=== PATIENT | male | born 1950 | race Caucasian/White ===

== ENCOUNTER 2016-11-15 07:24 | Emergency (ER) | payer OTHER ==
[~2016-11-15 07:24] MED LIST: ACET50TAOT PO; ATOR1TAB21 PO; COLA100C PO; ISOS30TA4 PO; NICO2GUM62 PO; NITR4TASL SL; PERCOCET PO; Pantoprazole Sodium PO; Sucralfate PO; VITA-122 PO; VITMTA PO
[2016-11-15] MEDS ORDERED: GI COCKTAIL 50ML BTL(HYOSCYAMINE/MAALOX/LIDOCAINE VISCOUS)(1:3:1) As Ordered ONE (07:49)
[2016-11-15] MEDS ORDERED: ONDANSETRON 4MG/2ML VIAL (J2405) As Ordered ONE (07:49)
[2016-11-15] MEDS ORDERED: MORPHINE 4 MG/ML 1ML SYRINGE As Ordered ONE ×2 (07:50→09:11)
[2016-11-15 07:58] LABS: BASO # 0.2 K/mm3 (0.0-0.2); EOS # 0.2 K/mm3 (0.0-0.50); EOS % 1.7 % (0.0-3.0); LARGE UNSTAINED CELL # 0.2 K/mm3 (0.0-0.4); LARGE UNSTAINED CELL % 1.5 % (0.0-4.0); LYMPH # 2.5 K/mm3 (1.5-4.5); LYMPH % 18.2 % (24.0-44.0); MEAN CORPUSCULAR HEMOGLOBIN 32.4 pg (27.0-33.0); MEAN CORPUSCULAR HGB CONC 34.3 g/dl (32.0-36.5); MEAN CORPUSCULAR VOLUME 94.3 fl (80.0-96.0); MONO # 0.6 K/mm3 (0.0-0.8); MONO % 4.4 % (0.0-5.0); NEUTROPHILS # 9.3 K/mm3 (1.8-7.7); NEUTROPHILS % 72.2 % (36.0-66.0); PLATELET COUNT, AUTOMATED 192 k/mm3 (150-450); RED CELL DISTRIBUTION WIDTH 14.2 % (11.5-14.5); WHITE BLOOD COUNT 12.8 K/mm3 (4.0-10.0)
[2016-11-15 08:26] LABS: ALBUMIN 3.6 GM/DL (3.2-5.2); ALBUMIN/GLOBULIN RATIO 0.97 (1.00-1.93); ALKALINE PHOSPHATASE 82 U/L (45-117); ALT/SGPT 30 U/L (12-78); AMYLASE 23 U/L (25-115); ANION GAP 10 MEQ/L (8-16); AST/SGOT 19 U/L (15-37); BILIRUBIN,DIRECT 0.2 MG/DL (0.0-0.2); BILIRUBIN,TOTAL 0.6 MG/DL (0.2-1.0); BLOOD UREA NITROGEN 25 MG/DL (7-18); CALCIUM LEVEL 8.9 MG/DL (8.8-10.2); CARBON DIOXIDE LEVEL 26 MEQ/L (21-32); CHLORIDE LEVEL 106 MEQ/L (98-107); CREATININE FOR GFR 1.12 MG/DL (0.70-1.30); GLOMERULAR FILTRATION RATE > 60.0 (>49); GLUCOSE, FASTING 93 MG/DL (80-110); POTASSIUM SERUM 4.1 MEQ/L (3.5-5.1); SODIUM LEVEL 142 MEQ/L (136-145); TOTAL PROTEIN 7.3 GM/DL (6.4-8.2)
[2016-11-15] MEDS ORDERED: PANTOPRAZOLE 40MG INJ (PROTONIX) (C9113) As Ordered ONE (09:20)
[2016-11-15] MEDS ORDERED: SUCRALFATE 1 GM TAB As Ordered ONE (09:20)
--- NOTE | 2016-11-15 13:09 | EDDOCDS ---
Physician Documentation [facility] Name: Adilson Dill Age: 65 yrs Sex: Male : 1950 Arrival Date: 11/15/2016 Time: 07:24 Bed 12 Private MD: [facility] Disposition: 11/15/16 12:00 Discharged to Home/Self Care. Impression: Gastritis, unspecified, without bleeding. - Condition is Stable. - Discharge Instructions: Clear Liquid Diet, Gastritis, Adult, Gastritis, Adult, [id number]. - Prescriptions for Carafate 100 mg/mL Oral suspension - take 10 milliliter by ORAL route 4 times per day on an empty stomach 1 hour before meals and at bedtime; 250 milliliter. Pepcid 20 mg Oral Tablet - take 1 tablet by ORAL route every 12 hours for 10 days; 20 tablet. - Medication Reconciliation, Local Pharmacy Hours form. - Follow up: [facility]; When: 1 - 2 days. Follow up: Mark Agustin; When: Call to arrange an appointment. - Problem is an acute exacerbation. - Symptoms are resolved. Historical: - Allergies: Aspirin; PENICILLINS; - Home Meds: 1. isosorbide mononitrate 30 mg Oral Tb24 1 tab once daily 2. cyclobenzaprine 10 mg Oral tab hs 3. multivitamin Oral tab 1 tablet daily 4. oxycodone-acetaminophen 5-325 mg Oral tab 1 tab every 4-6 hours 5. atorvastatin 40 mg oral tab 1 tab once daily 6. Vitamin D Oral 1,000 unit daily 7. meloxicam 15 mg oral tab 1 tab once daily 8. Nitrostat 0.4 mg SL subl - PMHx: Hypercholesterolemia; Hypertension; MIx2; Vertigo; - PSHx: Repair left thumb injury; Angioplasty; gastric surgery for ulcers; - Social history: Smoking status: Patient uses tobacco products, heavy tobacco smoker. No barriers to communication noted, The patient speaks fluent Telugu. - Family history: Not pertinent. - : The pt / caregiver states he / she is not on anticoagulants. Home medication list is obtained from the patient. - Exposure Risk Screening:: None identified. Vital Signs: 11/15 07:32 BP 179 / 89; Pulse 63; Resp 20; Temp 97.4(O); Pulse Ox 97% on R/A; Weight 117.93 kg / jml1 259.99 lbs; Height 5 ft. 11 in. (180.34 cm); Pain 4/10; 07:54 BP 132 / 61 (auto/); ck1 07:54 Pulse 56 MON; Pulse Ox 96% ; ck1 08:09 BP 149 / 73 (auto/); ck1 08:09 Pulse 60 MON; Pulse Ox 95% ; ck1 08:15 BP 139 / 69 (auto/); ck1 08:16 Pulse 62 MON; Pulse Ox 94% ; ck1 08:17 BP 139 / 69; Pulse 60; Resp 18; Temp 96.9(O); Pulse Ox 95% on R/A; Pain 0/10; ck1 08:24 BP 124 / 63 (auto/); ck1 08:25 Pulse 60 MON; Pulse Ox 94% ; ck1 08:39 BP 119 / 59 (auto/); ck1 08:41 Pulse 64 MON; Pulse Ox 95% ; ck1 08:54 BP 156 / 70 (auto/); ck1 08:54 Pulse 60 MON; Pulse Ox 94% ; ck1 09:09 BP 130 / 60 (auto/); ck1 09:09 Pulse 58 MON; Pulse Ox 95% ; ck1 09:24 BP 147 / 103 (auto/); ck1 09:24 Pulse 58 MON; Pulse Ox 95% ; ck1 09:39 BP 124 / 60 (auto/); ck1 09:39 Pulse 54 MON; Pulse Ox 96% ; ck1 09:42 Pain 0/10; ck1 09:43 Resp 18; Temp 97.9(O); Pain 0/10; ck1 09:54 BP 110 / 53 (auto/); ck1 09:55 Pulse 50 MON; Pulse Ox 93% ; ck1 10:09 BP 111 / 55 (auto/); ck1 10:10 Pulse 56 MON; Pulse Ox 93% ; ck1 10:24 BP 111 / 55 (auto/); ck1 10:25 Pulse 50 MON; Pulse Ox 94% ; ck1 10:39 BP 115 / 56 (auto/); ck1 10:40 Pulse 54 MON; Pulse Ox 96% ; ck1 10:54 BP 108 / 56 (auto/); ck1 10:55 Pulse 52 MON; Pulse Ox 95% ; ck1 11:09 BP 108 / 55 (auto/); ck1 11:09 Pulse 52 MON; Pulse Ox 95% ; ck1 11:24 BP 119 / 56 (auto/); ck1 11:25 Pulse 52 MON; Pulse Ox 96% ; ck1 11:39 BP 115 / 56 (auto/); ck1 11:40 Pulse 54 MON; Pulse Ox 94% ; ck1 11:40 Resp 18; Temp 96.9(T); Pain 0/10; ck1 11:54 BP 102 / 51 (auto/); ck1 11:54 Pulse 54 MON; Pulse Ox 96% ; ck1 07:32 Body Mass Index 36.26 (117.93 kg, 180.34 cm) [facility] MDM: 07:34 [employer]/Pulse Ox/q 30 min VS ordered. sd1 07:34 IV Saline Lock ordered. sd1 07:34 Rhythm Strip to chart ordered. sd1 07:34 Undress patient appropriately for examination ordered. sd1 07:34 NS 0.9% 1000 ml IV at 250 mL/hr continuous ordered. sd1 07:34 morphine 4 mg IVP every 15 minutes; Document pain score/vitals after each dose (Hold if sd1 SBP < 90mmHg) x2 ordered. 07:34 Ondansetron 4 mg IVP once ordered. sd1 07:34 GI Cocktail - (Alum-Mag Hydroxide-Simeth 30 ml, Lidocaine 10 ml, Hyoscyamine 10 ml) PO sd1 once; Pre-mixed 50mL unit dose ordered. 07:35 Amylase Ordered. EDMS 07:35 Basic Metabolic Profile Ordered. EDMS 07:35 CBC with Diff Ordered. EDMS 07:35 Lipase Ordered. EDMS 07:35 Liver Profile Ordered. EDMS 07:35 Cardiac Injury Profile Ordered. EDMS 07:35 Troponin Ordered. EDMS 07:35 ECG WITH READING ER PHYS+CARDIAG ordered. EDMS 07:35 NOTHING BY MOUTH+DIET ordered. EDMS 08:30 Amylase Reviewed. sd1 08:30 Basic Metabolic Profile Reviewed. sd1 08:30 CBC with Diff Reviewed. sd1 08:30 Liver Profile Reviewed. sd1 08:30 Lipase Reviewed. sd1 08:30 Cardiac Injury Profile Reviewed. sd1 08:30 Troponin Reviewed. sd1 08:44 Financial registration complete. lg 09:15 pantoprazole 40 mg IV at bolus once ordered. sd1 09:15 Sucralfate 1 grams PO once ordered. sd1 09:29 [facility] Payment Agreement was scanned into [employer] and attached to record. lg Administered Medications: 08:00 Drug: NS 0.9% 1000 ml [sodium chloride 0.9 % intravenous solution] Route: IV; Rate: 250 ck1 mL/hr; Site: left forearm; 08:00 Drug: morphine 4 mg [morphine 4 mg/mL intravenous cartridge (1 mL)] Route: IVP; Site: ck1 left forearm; 08:17 Follow up: BP 139 / 69; Pulse 60 bpm; Resp 18 bpm; Temp 96.9 Oral; Pulse Ox 95% RA; ck1 Pain 0/10 Adult; Response: Confirmed pt not driving.; No Adverse Reaction; Pain is resolved 08:00 Drug: Ondansetron 4 mg [ondansetron HCl 2 mg/mL intravenous solution (2 mL)] Route: ck1 IVP; Site: left forearm; 08:00 Drug: GI Cocktail - (Alum-Mag Hydroxide-Simeth Suspension 225 mg-200 mg-25 mg/5 mL 30 ck1 ml, Lidocaine Liquid 2 % 10 ml, Hyoscyamine Liquid 10 ml) Route: PO; 08:50 Follow up: Response: No Adverse Reaction; Pain is resolved ck1 09:14 Drug: morphine 4 mg [morphine 4 mg/mL intravenous cartridge (1 mL)] Route: IVP; Site: ck1 left forearm; 09:42 Follow up: Pain 0/10 Adult; Response: Confirmed pt not driving.; No Adverse Reaction; ck1 Pain is resolved 09:26 Drug: pantoprazole 40 mg [pantoprazole 40 mg intravenous solution] Route: IV; Rate: ck1 bolus; Site: left antecubital; 09:26 Drug: Sucralfate 1 grams [sucralfate 1 gram tablet (1 tabs)] Route: PO; ck1 Signatures: Dispatcher [employer] Kenya Youssef MD MD sd1 Erin Velazquez RN RN mcp Ganter, LoriLee, Ismael Reg lg Moon Pedroza RN RN ck1 The chart was reviewed and I authenticate all verbal orders and agree with the evaluation and treatment provided.Attachments: 09:29 [facility] Payment Agreement lg MTDD
--- NOTE | 2016-11-15 13:09 | EDDOCDS ---
Nurse's Notes [facility] Name: Adilson Dill Age: 65 yrs Sex: Male : 1950 Arrival Date: 11/15/2016 Time: 07:24 Bed 12 Private MD: SD Colton Sumter Diagnosis: Gastritis, unspecified, without bleeding Presentation: 11/15 07:28 Presenting complaint: Patient states: Has been taking Nitro for last 3 days, decreased mcp appetite, nauseous. Has had abdominal and chest pain on and off. FSBS--112, SL established left forearm #20. Adult Sepsis Screening: The patient does not have new or worsening altered mentation. Patient's respiratory rate is less than 22. Systolic blood pressure is greater than 100. Patient has a qSOFA score of 0- Negative Sepsis Screen. Suicide/Homicide risk assessment- the patient denies having any suicidal and/or homicidal ideations and does not present with any other emotional, behavioral or mental health complaints. 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 Transition of care: patient was not received from another setting of care. 07:28 Acuity: ROXANE Level 3 [facility] 07:28 Method Of Arrival: Ambulance [facility] Triage Assessment: 07:36 General: Appears uncomfortable, Behavior is cooperative. Pain: Location: chest and mcp abdomen Pain currently is 5 out of 10 on a pain scale. HIV screening NA for this visit Offered previously. Respiratory: Airway is patent Respiratory effort is even, unlabored. GI: Abdomen is distended. Derm: Skin is pink, warm & dry. Historical: - Allergies: Aspirin; PENICILLINS; - Home Meds: 1. isosorbide mononitrate 30 mg Oral Tb24 1 tab once daily 2. cyclobenzaprine 10 mg Oral tab hs 3. multivitamin Oral tab 1 tablet daily 4. oxycodone-acetaminophen 5-325 mg Oral tab 1 tab every 4-6 hours 5. atorvastatin 40 mg oral tab 1 tab once daily 6. Vitamin D Oral 1,000 unit daily 7. meloxicam 15 mg oral tab 1 tab once daily 8. Nitrostat 0.4 mg SL subl - PMHx: Hypercholesterolemia; Hypertension; MIx2; Vertigo; - PSHx: Repair left thumb injury; Angioplasty; gastric surgery for ulcers; - Social history: Smoking status: Patient uses tobacco products, heavy tobacco smoker. No barriers to communication noted, The patient speaks fluent Prydeinig. - Family history: Not pertinent. - : The pt / caregiver states he / she is not on anticoagulants. Home medication list is obtained from the patient. - Exposure Risk Screening:: None identified. Screenin:47 Screening information is obtained from the patient. Fall risk: No risks identified. ck1 Assistance ADL's: requires no assistance with activities of daily living. Abuse/DV Screen: The patient / caregiver reports he/she is: not in a situation that causes fear, pain or injury. Nutritional screening: No deficits noted. Advance Directives: Currently, there is no health care proxy. home support is adequate. Assessment: 07:48 General: Appears uncomfortable, Behavior is appropriate for age, cooperative. Pain: ck1 Location: epigastric area and right upper quadrant Pain currently is 6 out of 10 on a pain scale. Neurological: Level of Consciousness is awake, alert, obeys commands, Oriented to person, place, time. Respiratory: Respiratory effort is unlabored, Respiratory pattern is regular, symmetrical. GI: Abdomen is distended, Bowel sounds present X 4 quads. Abd is tender to palpation in right upper quadrant. Derm: Skin is intact, Skin is pink, warm & dry. Musculoskeletal: Circulation, motion, and sensation intact Range of motion intact in all extremities. 08:18 General: Appears in no apparent distress, comfortable, Behavior is appropriate for age, ck1 cooperative. Pain: Denies pain. Neurological: Level of Consciousness is awake, alert, obeys commands, Oriented to person, place, time. Cardiovascular: Rhythm is regular Chest pain is denied. Respiratory: Respiratory effort is unlabored, Respiratory pattern is regular, symmetrical. GI: Abdomen is distended, Denies nausea, vomiting, pain. Derm: Skin is intact, Skin is pink, warm & dry. Musculoskeletal: No deficits noted. 09:17 General: Patient complaining of "sharp" pain in abdomen 08/21. Medicated per orders, ck1 family members at bedside. Call light in reach, will continue to monitor patient. 10:15 Reassessment: Patient appears in no apparent distress at this time. Patient denies pain ck1 at this time. Patient states feeling better. 11:15 Reassessment: Patient appears in no apparent distress at this time. Patient states ck1 feeling better. Patient states symptoms have improved. 12:15 General: Patient waiting for family members to bring his clothes in order to be ck1 discharged home. No acute distress noted at this time. 12:58 General: Appears comfortable, to be sleeping. Behavior is appropriate for age, ck1 cooperative, quiet. Pain: Denies pain. Neurological: No deficits noted. Respiratory: Respiratory effort is even, unlabored, Respiratory pattern is regular, symmetrical. GI: No deficits noted. Derm: Skin is pink, warm & dry. Vital Signs: 07:32 BP 179 / 89; Pulse 63; Resp 20; Temp 97.4(O); Pulse Ox 97% on R/A; Weight 117.93 kg; jml1 Height 5 ft. 11 in. (180.34 cm); Pain 4/10; 07:54 BP 132 / 61 (auto/); ck1 07:54 Pulse 56 MON; Pulse Ox 96% ; ck1 08:09 BP 149 / 73 (auto/); ck1 08:09 Pulse 60 MON; Pulse Ox 95% ; ck1 08:15 BP 139 / 69 (auto/); ck1 08:16 Pulse 62 MON; Pulse Ox 94% ; ck1 08:17 BP 139 / 69; Pulse 60; Resp 18; Temp 96.9(O); Pulse Ox 95% on R/A; Pain 0/10; ck1 08:24 BP 124 / 63 (auto/); ck1 08:25 Pulse 60 MON; Pulse Ox 94% ; ck1 08:39 BP 119 / 59 (auto/); ck1 08:41 Pulse 64 MON; Pulse Ox 95% ; ck1 08:54 BP 156 / 70 (auto/); ck1 08:54 Pulse 60 MON; Pulse Ox 94% ; ck1 09:09 BP 130 / 60 (auto/); ck1 09:09 Pulse 58 MON; Pulse Ox 95% ; ck1 09:24 BP 147 / 103 (auto/); ck1 09:24 Pulse 58 MON; Pulse Ox 95% ; ck1 09:39 BP 124 / 60 (auto/); ck1 09:39 Pulse 54 MON; Pulse Ox 96% ; ck1 09:42 Pain 0/10; ck1 09:43 Resp 18; Temp 97.9(O); Pain 0/10; ck1 09:54 BP 110 / 53 (auto/); ck1 09:55 Pulse 50 MON; Pulse Ox 93% ; ck1 10:09 BP 111 / 55 (auto/); ck1 10:10 Pulse 56 MON; Pulse Ox 93% ; ck1 10:24 BP 111 / 55 (auto/); ck1 10:25 Pulse 50 MON; Pulse Ox 94% ; ck1 10:39 BP 115 / 56 (auto/); ck1 10:40 Pulse 54 MON; Pulse Ox 96% ; ck1 10:54 BP 108 / 56 (auto/); ck1 10:55 Pulse 52 MON; Pulse Ox 95% ; ck1 11:09 BP 108 / 55 (auto/); ck1 11:09 Pulse 52 MON; Pulse Ox 95% ; ck1 11:24 BP 119 / 56 (auto/); ck1 11:25 Pulse 52 MON; Pulse Ox 96% ; ck1 11:39 BP 115 / 56 (auto/); ck1 11:40 Pulse 54 MON; Pulse Ox 94% ; ck1 11:40 Resp 18; Temp 96.9(T); Pain 0/10; ck1 11:54 BP 102 / 51 (auto/); ck1 11:54 Pulse 54 MON; Pulse Ox 96% ; ck1 07:32 Body Mass Index 36.26 (117.93 kg, 180.34 cm) jml1 Vitals: 07:49 Log In Time N/A - ambulance arrival. ck1 ED Course: 07:25 Patient visited by Ro Abdullahi, Heel Curver. lbd 07:25 Patient moved to Waiting lbd 07:26 [facility] is Private Physician. lbd 07:26 Kenya Hernández MD is Attending Physician. sd1 07:26 Patient moved to 12 lbd 07:27 Patient visited by Kenya Hernández MD. sd1 07:30 Triage Initiated mcp 07:33 Patient visited by Antonio Bean. jml1 07:37 Maintain field IV. Dressing intact. Good blood return noted. Site clean & dry. Gauge & mcp site: #20 left forearm. 07:38 Patient visited by Erin Velazquez RN. mcp 07:43 Patient visited by Antonio Bean. jml1 07:43 EKG done. (by ED staff). Reviewed by Kenya Hernández MD. jml1 07:47 Cardiac Injury Profile Sent. ck1 07:47 Troponin Sent. ck1 07:47 Liver Profile Sent. ck1 07:47 Lipase Sent. ck1 07:47 CBC with Diff Sent. ck1 07:47 Basic Metabolic Profile Sent. ck1 07:47 Amylase Sent. ck1 07:48 The patient / caregiver is instructed regarding the plan of care and ED course. ck1 08:17 Patient visited by Moon Pedroza RN. ck1 08:51 Patient visited by Moon Pedroza RN. ck1 09:14 Patient visited by Moon Pedroza RN. ck1 09:29 [facility] Payment Agreement was scanned into [employer] and attached to record. lg 09:41 Patient visited by Moon Pedroza RN. ck1 10:16 Patient visited by Moon Pedroza RN. ck1 11:18 Moon Pedroza RN is Primary Nurse. ck1 11:22 Patient visited by Moon Pedroza RN. ck1 11:50 Patient visited by Moon Pedroza RN. ck1 11:59 [facility] is Referral Physician. sd1 12:04 Discontinued lock intact, bleeding controlled, pressure dressing applied, No ck1 redness/swelling at site. No procedures done that require assistance. 12:07 Mark Agustin is Referral Physician. sd1 12:47 Primary Nurse role handed off by Moon Pedroza RN mk4 12:52 Moon Pedroza RN is Primary Nurse. ck1 Administered Medications: 08:00 Drug: NS 0.9% 1000 ml [sodium chloride 0.9 % intravenous solution] Route: IV; Rate: 250 ck1 mL/hr; Site: left forearm; 08:00 Drug: morphine 4 mg [morphine 4 mg/mL intravenous cartridge (1 mL)] Route: IVP; Site: ck1 left forearm; 08:17 Follow up: BP 139 / 69; Pulse 60 bpm; Resp 18 bpm; Temp 96.9 Oral; Pulse Ox 95% RA; ck1 Pain 0/10 Adult; Response: Confirmed pt not driving.; No Adverse Reaction; Pain is resolved 08:00 Drug: Ondansetron 4 mg [ondansetron HCl 2 mg/mL intravenous solution (2 mL)] Route: ck1 IVP; Site: left forearm; 08:00 Drug: GI Cocktail - (Alum-Mag Hydroxide-Simeth Suspension 225 mg-200 mg-25 mg/5 mL 30 ck1 ml, Lidocaine Liquid 2 % 10 ml, Hyoscyamine Liquid 10 ml) Route: PO; 08:50 Follow up: Response: No Adverse Reaction; Pain is resolved ck1 09:14 Drug: morphine 4 mg [morphine 4 mg/mL intravenous cartridge (1 mL)] Route: IVP; Site: ck1 left forearm; 09:42 Follow up: Pain 0/10 Adult; Response: Confirmed pt not driving.; No Adverse Reaction; ck1 Pain is resolved 09:26 Drug: pantoprazole 40 mg [pantoprazole 40 mg intravenous solution] Route: IV; Rate: ck1 bolus; Site: left antecubital; 09:26 Drug: Sucralfate 1 grams [sucralfate 1 gram tablet (1 tabs)] Route: PO; ck1 Order Results: Lab Order: Amylase; SPEC'M 11/15/16 07:45 Test: AMYLASE; Value: 23; Range: 25-115; Abnormal: Below low normal; Units: U/L; Status: F Lab Order: Basic Metabolic Profile; SPEC'M 11/15/16 07:45 Test: GLUCOSE, FASTING; Value: 93; Range: 80-110; Units: MG/DL; Status: F Test: BLOOD UREA NITROGEN; Value: 25; Range: 7-18; Abnormal: Above high normal; Units: MG/DL; Status: F Test: CREATININE FOR GFR; Value: 1.12; Range: 0.70-1.30; Units: MG/DL; Status: F Test: GLOMERULAR FILTRATION RATE; Value: > 60.0; Range: >49; Status: F Test: SODIUM LEVEL; Value: 142; Range: 136-145; Units: MEQ/L; Status: F Test: POTASSIUM SERUM; Value: 4.1; Range: 3.5-5.1; Units: MEQ/L; Status: F Test: CHLORIDE LEVEL; Value: 106; Range: 98-107; Units: MEQ/L; Status: F Test: CARBON DIOXIDE LEVEL; Value: 26; Range: 21-32; Units: MEQ/L; Status: F Test: ANION GAP; Value: 10; Range: 8-16; Units: MEQ/L; Status: F Test: CALCIUM LEVEL; Value: 8.9; Range: 8.8-10.2; Units: MG/DL; Status: F Test Note: ; Units are mL/min/1.73 m2 Chronic Kidney Disease Staging per NKF: Stage I & II GFR >=60 Normal to Mildly Decreased Stage III GFR 30-59 Moderately Decreased Stage IV GFR 15-29 Severely Decreased Stage V GFR <15 Very Little GFR Left ESRD GFR <15 on TOOL DISTRIBUTOR Lab Order: CBC with Diff; SPEC'M 11/15/16 07:45 Test: WHITE BLOOD COUNT; Value: 12.8; Range: 4.0-10.0; Abnormal: Above high normal; Units: K/mm3; Status: F Test: RED BLOOD COUNT; Value: 4.64; Range: 4.30-6.10; Units: M/mm3; Status: F Test: HEMOGLOBIN; Value: 15.0; Range: 14.0-18.0; Units: g/dl; Status: F Test: HEMATOCRIT; Value: 43.7; Range: 42.0-52.0; Units: %; Status: F Test: MEAN CORPUSCULAR VOLUME; Value: 94.3; Range: 80.0-96.0; Units: fl; Status: F Test: MEAN CORPUSCULAR HEMOGLOBIN; Value: 32.4; Range: 27.0-33.0; Units: pg; Status: F Test: MEAN CORPUSCULAR HGB CONC; Value: 34.3; Range: 32.0-36.5; Units: g/dl; Status: F Test: RED CELL DISTRIBUTION WIDTH; Value: 14.2; Range: 11.5-14.5; Units: %; Status: F Test: PLATELET COUNT, AUTOMATED; Value: 192; Range: 150-450; Units: k/mm3; Status: F Test: NEUTROPHILS %; Value: 72.2; Range: 36.0-66.0; Abnormal: Above high normal; Units: %; Status: F Test: LYMPH %; Value: 18.2; Range: 24.0-44.0; Abnormal: Below low normal; Units: %; Status: F Test: MONO %; Value: 4.4; Range: 0.0-5.0; Units: %; Status: F Test: EOS %; Value: 1.7; Range: 0.0-3.0; Units: %; Status: F Test: BASO %; Value: 2.0; Range: 0.0-1.0; Abnormal: Above high normal; Units: %; Status: F Test: LARGE UNSTAINED CELL %; Value: 1.5; Range: 0.0-4.0; Units: %; Status: F Test: NEUTROPHILS #; Value: 9.3; Range: 1.8-7.7; Abnormal: Above high normal; Units: K/mm3; Status: F Test: LYMPH #; Value: 2.5; Range: 1.5-4.5; Units: K/mm3; Status: F Test: MONO #; Value: 0.6; Range: 0.0-0.8; Units: K/mm3; Status: F Test: EOS #; Value: 0.2; Range: 0.0-0.50; Units: K/mm3; Status: F Test: BASO #; Value: 0.2; Range: 0.0-0.2; Units: K/mm3; Status: F Test: LARGE UNSTAINED CELL #; Value: 0.2; Range: 0.0-0.4; Units: K/mm3; Status: F Lab Order: Lipase; SPEC' 11/15/16 07:45 Test: LIPASE; Value: 102; Range: 73-393; Units: U/L; Status: F Lab Order: Liver Profile; SPEC' 11/15/16 07:45 Test: AST/SGOT; Value: 19; Range: 15-37; Units: U/L; Status: F Test: ALT/SGPT; Value: 30; Range: 12-78; Units: U/L; Status: F Test: ALKALINE PHOSPHATASE; Value: 82; Range: 45-117; Units: U/L; Status: F Test: BILIRUBIN,TOTAL; Value: 0.6; Range: 0.2-1.0; Units: MG/DL; Status: F Test: BILIRUBIN,DIRECT; Value: 0.2; Range: 0.0-0.2; Units: MG/DL; Status: F Test: TOTAL PROTEIN; Value: 7.3; Range: 6.4-8.2; Units: GM/DL; Status: F Test: ALBUMIN; Value: 3.6; Range: 3.2-5.2; Units: GM/DL; Status: F Test: ALBUMIN/GLOBULIN RATIO; Value: 0.97; Range: 1.00-1.93; Abnormal: Below low normal; Status: F Lab Order: Cardiac Injury Profile; SPEC'M 11/15/16 07:45 Test: CPK CREATINE PHOSPHOKINASE; Value: 205; Range: 39-308; Units: U/L; Status: F Test: CK-MB VALUE MASS; Value: 2.1; Range: 0.0-3.6; Units: NG/ML; Status: F Test: MB/CK RELATIVE INDEX; Value: 1.02; Range: < OR =4; Status: F Test Note: ; DIAGNOSIS CRITERIA MMB ng/ml Relative Index (RI) NON-AMI < or = 5 N/A JACOBO ZONE > 5 < or = 4 AMI > 5 > 4 Lab Order: Troponin; SPEC'M 11/15/16 07:45 Test: TROPONIN I; Value: < 0.02; Range: < 0.10; Units: NG/ML; Status: F Test Note: ; Troponin I Reference Interval for [employer] LOCI: 99th Percentile= 0.00-0.045 ng/ml Risk Stratification: <= 0.10 ng/ml Decreased Risk for Adverse Clinical Events. 0.10-1.50 ng/ml Increased Risk for Adverse Clinical Events. Evaluation of additional criterion and/or repeat testing in 2-6 hours is suggested to rule out myocardial damage. >= 1.50 ng/ml Indicative of Myocardial Injury. Outcome: 12:00 Discharge ordered by Provider. sd1 12:04 Discharge Assessment: Patient awake, alert and oriented x 3. No cognitive and/or ck1 functional deficits noted. Patient verbalized understanding of disposition instructions. patient administered narcotics - yes. Pt provided with safe discharge. The following High Risk Discharge criteria are identified: None. Discharged to home ambulatory, with family. Condition: stable. No special radiology studies were completed. Property :Personal belongings accompany Pt. 12:18 Discharge instructions given to patient, Instructed on discharge instructions, follow ck1 up and referral plans. medication usage, Demonstrated understanding of instructions, medications, Pt was receptive of discharge instructions/ teaching. Prescriptions given X 2. 13:09 Patient left the ED. ck1 Signatures: Kenya Hernández MD MD sd1 Ro Abdullahi, Heel Curver Unit lbd Erin Velazquez RN RN Orville Wang, Reg Reg lg Moon Pedroza RN RN ck1 Antonio Bean jml1 Breonna Mccurdy RN RN mk4 Corrections: (The following items were deleted from the chart) 09:14 09:14 morphine 4 mg IVP in left antecubital ck1 ck1 MTDD
--- NOTE | 2016-11-15 19:56 | ECGEPIP ---
Stationary ECG Study [facility] - ED Test Date: 2016-11-15 Pat Name: CAMERON GARBER Department: Room: - Gender: M Penciller: DENNISE : 1950 Requested By: Kenya Hernández Order Number: [id number] Reading MD: Kenya Hernández Measurements Intervals [place] Rate: 54 P: 42 [place]: 139 QRS: -11 QRSD: 100 T: 61 QT: 423 QTc: 403 Interpretive Statements SINUS BRADYCARDIA LOW QRS VOLTAGE IN EXTREMITY LEADS NSTTW ABNORMALITY SIMILAR 03/24/16 Electronically Signed On 11-15-2016 19:55:58 EST by Kenya Hernández
--- NOTE | 2016-11-17 14:09 | EDDOCDS ---
Physician Documentation [facility] Name: Adilson Dill Age: 65 yrs Sex: Male : 1950 Arrival Date: 11/15/2016 Time: 07:24 Bed 12 Private MD: [facility] Disposition: 11/15/16 12:00 Discharged to Home/Self Care. Impression: Gastritis, unspecified, without bleeding. - Condition is Stable. - Discharge Instructions: Clear Liquid Diet, Gastritis, Adult, Gastritis, Adult, [id number]. - Prescriptions for Carafate 100 mg/mL Oral suspension - take 10 milliliter by ORAL route 4 times per day on an empty stomach 1 hour before meals and at bedtime; 250 milliliter. Pepcid 20 mg Oral Tablet - take 1 tablet by ORAL route every 12 hours for 10 days; 20 tablet. - Medication Reconciliation, Local Pharmacy Hours form. - Follow up: [facility]; When: 1 - 2 days. Follow up: [facility]; When: Call to arrange an appointment. - Problem is an acute exacerbation. - Symptoms are resolved. Historical: - Allergies: Aspirin; PENICILLINS; - Home Meds: 1. isosorbide mononitrate 30 mg Oral Tb24 1 tab once daily 2. cyclobenzaprine 10 mg Oral tab hs 3. multivitamin Oral tab 1 tablet daily 4. oxycodone-acetaminophen 5-325 mg Oral tab 1 tab every 4-6 hours 5. atorvastatin 40 mg oral tab 1 tab once daily 6. Vitamin D Oral 1,000 unit daily 7. meloxicam 15 mg oral tab 1 tab once daily 8. Nitrostat 0.4 mg SL subl - PMHx: Hypercholesterolemia; Hypertension; MIx2; Vertigo; - PSHx: Repair left thumb injury; Angioplasty; gastric surgery for ulcers; - Social history: Smoking status: Patient uses tobacco products, heavy tobacco smoker. No barriers to communication noted, The patient speaks fluent [place]. - Family history: Not pertinent. - : The pt / caregiver states he / she is not on anticoagulants. Home medication list is obtained from the patient. - Exposure Risk Screening:: None identified. Vital Signs: 11/15 07:32 BP 179 / 89; Pulse 63; Resp 20; Temp 97.4(O); Pulse Ox 97% on R/A; Weight 117.93 kg / jml1 259.99 lbs; Height 5 ft. 11 in. (180.34 cm); Pain 4/10; 07:54 BP 132 / 61 (auto/); ck1 07:54 Pulse 56 MON; Pulse Ox 96% ; ck1 08:09 BP 149 / 73 (auto/); ck1 08:09 Pulse 60 MON; Pulse Ox 95% ; ck1 08:15 BP 139 / 69 (auto/); ck1 08:16 Pulse 62 MON; Pulse Ox 94% ; ck1 08:17 BP 139 / 69; Pulse 60; Resp 18; Temp 96.9(O); Pulse Ox 95% on R/A; Pain 0/10; ck1 08:24 BP 124 / 63 (auto/); ck1 08:25 Pulse 60 MON; Pulse Ox 94% ; ck1 08:39 BP 119 / 59 (auto/); ck1 08:41 Pulse 64 MON; Pulse Ox 95% ; ck1 08:54 BP 156 / 70 (auto/); ck1 08:54 Pulse 60 MON; Pulse Ox 94% ; ck1 09:09 BP 130 / 60 (auto/); ck1 09:09 Pulse 58 MON; Pulse Ox 95% ; ck1 09:24 BP 147 / 103 (auto/); ck1 09:24 Pulse 58 MON; Pulse Ox 95% ; ck1 09:39 BP 124 / 60 (auto/); ck1 09:39 Pulse 54 MON; Pulse Ox 96% ; ck1 09:42 Pain 0/10; ck1 09:43 Resp 18; Temp 97.9(O); Pain 0/10; ck1 09:54 BP 110 / 53 (auto/); ck1 09:55 Pulse 50 MON; Pulse Ox 93% ; ck1 10:09 BP 111 / 55 (auto/); ck1 10:10 Pulse 56 MON; Pulse Ox 93% ; ck1 10:24 BP 111 / 55 (auto/); ck1 10:25 Pulse 50 MON; Pulse Ox 94% ; ck1 10:39 BP 115 / 56 (auto/); ck1 10:40 Pulse 54 MON; Pulse Ox 96% ; ck1 10:54 BP 108 / 56 (auto/); ck1 10:55 Pulse 52 MON; Pulse Ox 95% ; ck1 11:09 BP 108 / 55 (auto/); ck1 11:09 Pulse 52 MON; Pulse Ox 95% ; ck1 11:24 BP 119 / 56 (auto/); ck1 11:25 Pulse 52 MON; Pulse Ox 96% ; ck1 11:39 BP 115 / 56 (auto/); ck1 11:40 Pulse 54 MON; Pulse Ox 94% ; ck1 11:40 Resp 18; Temp 96.9(T); Pain 0/10; ck1 11:54 BP 102 / 51 (auto/); ck1 11:54 Pulse 54 MON; Pulse Ox 96% ; ck1 07:32 Body Mass Index 36.26 (117.93 kg, 180.34 cm) [facility] MDM: 07:34 Human Intelligence/Pulse Ox/q 30 min VS ordered. sd1 07:34 IV Saline Lock ordered. sd1 07:34 Rhythm Strip to chart ordered. sd1 07:34 Undress patient appropriately for examination ordered. sd1 07:34 NS 0.9% 1000 ml IV at 250 mL/hr continuous ordered. sd1 07:34 morphine 4 mg IVP every 15 minutes; Document pain score/vitals after each dose (Hold if sd1 SBP < 90mmHg) x2 ordered. 07:34 Ondansetron 4 mg IVP once ordered. sd1 07:34 GI Cocktail - (Alum-Mag Hydroxide-Simeth 30 ml, Lidocaine 10 ml, Hyoscyamine 10 ml) PO sd1 once; Pre-mixed 50mL unit dose ordered. 07:35 Amylase Ordered. EDMS 07:35 Basic Metabolic Profile Ordered. EDMS 07:35 CBC with Diff Ordered. EDMS 07:35 Lipase Ordered. EDMS 07:35 Liver Profile Ordered. EDMS 07:35 Cardiac Injury Profile Ordered. EDMS 07:35 Troponin Ordered. EDMS 07:35 ECG WITH READING ER PHYS+CARDIAG ordered. EDMS 07:35 NOTHING BY MOUTH+DIET ordered. EDMS 08:30 Amylase Reviewed. sd1 08:30 Basic Metabolic Profile Reviewed. sd1 08:30 CBC with Diff Reviewed. sd1 08:30 Liver Profile Reviewed. sd1 08:30 Lipase Reviewed. sd1 08:30 Cardiac Injury Profile Reviewed. sd1 08:30 Troponin Reviewed. sd1 08:44 Financial registration complete. lg 09:15 pantoprazole 40 mg IV at bolus once ordered. sd1 09:15 Sucralfate 1 grams PO once ordered. sd1 09:29 [facility] Payment Agreement was scanned into [employer] and attached to record. lg 15:03 T-Sheet-- Draft Copy was scanned into [employer] and attached to record. gb 15:03 ECG/EKG was scanned into [employer] and attached to record. gb Administered Medications: 08:00 Drug: NS 0.9% 1000 ml [sodium chloride 0.9 % intravenous solution] Route: IV; Rate: 250 ck1 mL/hr; Site: left forearm; 08:00 Drug: morphine 4 mg [morphine 4 mg/mL intravenous cartridge (1 mL)] Route: IVP; Site: ck1 left forearm; 08:17 Follow up: BP 139 / 69; Pulse 60 bpm; Resp 18 bpm; Temp 96.9 Oral; Pulse Ox 95% RA; ck1 Pain 0/10 Adult; Response: Confirmed pt not driving.; No Adverse Reaction; Pain is resolved 08:00 Drug: Ondansetron 4 mg [ondansetron HCl 2 mg/mL intravenous solution (2 mL)] Route: ck1 IVP; Site: left forearm; 08:00 Drug: GI Cocktail - (Alum-Mag Hydroxide-Simeth Suspension 225 mg-200 mg-25 mg/5 mL 30 ck1 ml, Lidocaine Liquid 2 % 10 ml, Hyoscyamine Liquid 10 ml) Route: PO; 08:50 Follow up: Response: No Adverse Reaction; Pain is resolved ck1 09:14 Drug: morphine 4 mg [morphine 4 mg/mL intravenous cartridge (1 mL)] Route: IVP; Site: ck1 left forearm; 09:42 Follow up: Pain 0/10 Adult; Response: Confirmed pt not driving.; No Adverse Reaction; ck1 Pain is resolved 09:26 Drug: pantoprazole 40 mg [pantoprazole 40 mg intravenous solution] Route: IV; Rate: ck1 bolus; Site: left antecubital; 09:26 Drug: Sucralfate 1 grams [sucralfate 1 gram tablet (1 tabs)] Route: PO; ck1 Signatures: Dispatcher [employer] Kenya Youssef MD MD sd1 Erni Velazquez RN RN Elisha Meier, Reg Reg gb Orville Correa, Reg Reg Moon RankinRN RN ck1 The chart was reviewed and I authenticate all verbal orders and agree with the evaluation and treatment provided.Attachments: : [facility] Payment Agreement lg : T-Sheet-- Draft Copy gb : ECG/EKG gb Chart Complete MTDD
--- NOTE | 2016-11-17 14:09 | EDDOCDS ---
Physician Documentation [facility] Name: Adilson Dill Age: 65 yrs Sex: Male : 1950 Arrival Date: 11/15/2016 Time: 07:24 Bed 12 Private MD: [facility] Disposition: 11/15/16 12:00 Discharged to Home/Self Care. Impression: Gastritis, unspecified, without bleeding. - Condition is Stable. - Discharge Instructions: Clear Liquid Diet, Gastritis, Adult, Gastritis, Adult, [id number]. - Prescriptions for Carafate 100 mg/mL Oral suspension - take 10 milliliter by ORAL route 4 times per day on an empty stomach 1 hour before meals and at bedtime; 250 milliliter. Pepcid 20 mg Oral Tablet - take 1 tablet by ORAL route every 12 hours for 10 days; 20 tablet. - Medication Reconciliation, Local Pharmacy Hours form. - Follow up: [facility]; When: 1 - 2 days. Follow up: [facility]; When: Call to arrange an appointment. - Problem is an acute exacerbation. - Symptoms are resolved. Historical: - Allergies: Aspirin; PENICILLINS; - Home Meds: 1. isosorbide mononitrate 30 mg Oral Tb24 1 tab once daily 2. cyclobenzaprine 10 mg Oral tab hs 3. multivitamin Oral tab 1 tablet daily 4. oxycodone-acetaminophen 5-325 mg Oral tab 1 tab every 4-6 hours 5. atorvastatin 40 mg oral tab 1 tab once daily 6. Vitamin D Oral 1,000 unit daily 7. meloxicam 15 mg oral tab 1 tab once daily 8. Nitrostat 0.4 mg SL subl - PMHx: Hypercholesterolemia; Hypertension; MIx2; Vertigo; - PSHx: Repair left thumb injury; Angioplasty; gastric surgery for ulcers; - Social history: Smoking status: Patient uses tobacco products, heavy tobacco smoker. No barriers to communication noted, The patient speaks fluent [place]. - Family history: Not pertinent. - : The pt / caregiver states he / she is not on anticoagulants. Home medication list is obtained from the patient. - Exposure Risk Screening:: None identified. Vital Signs: 11/15 07:32 BP 179 / 89; Pulse 63; Resp 20; Temp 97.4(O); Pulse Ox 97% on R/A; Weight 117.93 kg / jml1 259.99 lbs; Height 5 ft. 11 in. (180.34 cm); Pain 4/10; 07:54 BP 132 / 61 (auto/); ck1 07:54 Pulse 56 MON; Pulse Ox 96% ; ck1 08:09 BP 149 / 73 (auto/); ck1 08:09 Pulse 60 MON; Pulse Ox 95% ; ck1 08:15 BP 139 / 69 (auto/); ck1 08:16 Pulse 62 MON; Pulse Ox 94% ; ck1 08:17 BP 139 / 69; Pulse 60; Resp 18; Temp 96.9(O); Pulse Ox 95% on R/A; Pain 0/10; ck1 08:24 BP 124 / 63 (auto/); ck1 08:25 Pulse 60 MON; Pulse Ox 94% ; ck1 08:39 BP 119 / 59 (auto/); ck1 08:41 Pulse 64 MON; Pulse Ox 95% ; ck1 08:54 BP 156 / 70 (auto/); ck1 08:54 Pulse 60 MON; Pulse Ox 94% ; ck1 09:09 BP 130 / 60 (auto/); ck1 09:09 Pulse 58 MON; Pulse Ox 95% ; ck1 09:24 BP 147 / 103 (auto/); ck1 09:24 Pulse 58 MON; Pulse Ox 95% ; ck1 09:39 BP 124 / 60 (auto/); ck1 09:39 Pulse 54 MON; Pulse Ox 96% ; ck1 09:42 Pain 0/10; ck1 09:43 Resp 18; Temp 97.9(O); Pain 0/10; ck1 09:54 BP 110 / 53 (auto/); ck1 09:55 Pulse 50 MON; Pulse Ox 93% ; ck1 10:09 BP 111 / 55 (auto/); ck1 10:10 Pulse 56 MON; Pulse Ox 93% ; ck1 10:24 BP 111 / 55 (auto/); ck1 10:25 Pulse 50 MON; Pulse Ox 94% ; ck1 10:39 BP 115 / 56 (auto/); ck1 10:40 Pulse 54 MON; Pulse Ox 96% ; ck1 10:54 BP 108 / 56 (auto/); ck1 10:55 Pulse 52 MON; Pulse Ox 95% ; ck1 11:09 BP 108 / 55 (auto/); ck1 11:09 Pulse 52 MON; Pulse Ox 95% ; ck1 11:24 BP 119 / 56 (auto/); ck1 11:25 Pulse 52 MON; Pulse Ox 96% ; ck1 11:39 BP 115 / 56 (auto/); ck1 11:40 Pulse 54 MON; Pulse Ox 94% ; ck1 11:40 Resp 18; Temp 96.9(T); Pain 0/10; ck1 11:54 BP 102 / 51 (auto/); ck1 11:54 Pulse 54 MON; Pulse Ox 96% ; ck1 07:32 Body Mass Index 36.26 (117.93 kg, 180.34 cm) [facility] MDM: 07:34 Rn Ostomy/Pulse Ox/q 30 min VS ordered. sd1 07:34 IV Saline Lock ordered. sd1 07:34 Rhythm Strip to chart ordered. sd1 07:34 Undress patient appropriately for examination ordered. sd1 07:34 NS 0.9% 1000 ml IV at 250 mL/hr continuous ordered. sd1 07:34 morphine 4 mg IVP every 15 minutes; Document pain score/vitals after each dose (Hold if sd1 SBP < 90mmHg) x2 ordered. 07:34 Ondansetron 4 mg IVP once ordered. sd1 07:34 GI Cocktail - (Alum-Mag Hydroxide-Simeth 30 ml, Lidocaine 10 ml, Hyoscyamine 10 ml) PO sd1 once; Pre-mixed 50mL unit dose ordered. 07:35 Amylase Ordered. EDMS 07:35 Basic Metabolic Profile Ordered. EDMS 07:35 CBC with Diff Ordered. EDMS 07:35 Lipase Ordered. EDMS 07:35 Liver Profile Ordered. EDMS 07:35 Cardiac Injury Profile Ordered. EDMS 07:35 Troponin Ordered. EDMS 07:35 ECG WITH READING ER PHYS+CARDIAG ordered. EDMS 07:35 NOTHING BY MOUTH+DIET ordered. EDMS 08:30 Amylase Reviewed. sd1 08:30 Basic Metabolic Profile Reviewed. sd1 08:30 CBC with Diff Reviewed. sd1 08:30 Liver Profile Reviewed. sd1 08:30 Lipase Reviewed. sd1 08:30 Cardiac Injury Profile Reviewed. sd1 08:30 Troponin Reviewed. sd1 08:44 Financial registration complete. lg 09:15 pantoprazole 40 mg IV at bolus once ordered. sd1 09:15 Sucralfate 1 grams PO once ordered. sd1 09:29 [facility] Payment Agreement was scanned into [employer] and attached to record. lg 15:03 T-Sheet-- Draft Copy was scanned into [employer] and attached to record. gb 15:03 ECG/EKG was scanned into [employer] and attached to record. gb Administered Medications: 08:00 Drug: NS 0.9% 1000 ml [sodium chloride 0.9 % intravenous solution] Route: IV; Rate: 250 ck1 mL/hr; Site: left forearm; 08:00 Drug: morphine 4 mg [morphine 4 mg/mL intravenous cartridge (1 mL)] Route: IVP; Site: ck1 left forearm; 08:17 Follow up: BP 139 / 69; Pulse 60 bpm; Resp 18 bpm; Temp 96.9 Oral; Pulse Ox 95% RA; ck1 Pain 0/10 Adult; Response: Confirmed pt not driving.; No Adverse Reaction; Pain is resolved 08:00 Drug: Ondansetron 4 mg [ondansetron HCl 2 mg/mL intravenous solution (2 mL)] Route: ck1 IVP; Site: left forearm; 08:00 Drug: GI Cocktail - (Alum-Mag Hydroxide-Simeth Suspension 225 mg-200 mg-25 mg/5 mL 30 ck1 ml, Lidocaine Liquid 2 % 10 ml, Hyoscyamine Liquid 10 ml) Route: PO; 08:50 Follow up: Response: No Adverse Reaction; Pain is resolved ck1 09:14 Drug: morphine 4 mg [morphine 4 mg/mL intravenous cartridge (1 mL)] Route: IVP; Site: ck1 left forearm; 09:42 Follow up: Pain 0/10 Adult; Response: Confirmed pt not driving.; No Adverse Reaction; ck1 Pain is resolved 09:26 Drug: pantoprazole 40 mg [pantoprazole 40 mg intravenous solution] Route: IV; Rate: ck1 bolus; Site: left antecubital; 09:26 Drug: Sucralfate 1 grams [sucralfate 1 gram tablet (1 tabs)] Route: PO; ck1 Signatures: Dispatcher [employer] [place] Youssef MD MD sd1 Erin Velazquez RN RN Elisha Meier, Reg Reg gb Orville Correa, Reg Reg Moon RankinRN RN ck1 The chart was reviewed and I authenticate all verbal orders and agree with the evaluation and treatment provided.Attachments: : [facility] Payment Agreement lg : T-Sheet-- Draft Copy gb : ECG/EKG gb Chart Complete MTDD
--- NOTE | 2016-11-17 14:10 | EDDOCDS ---
Nurse's Notes [facility] Name: Cameron Dill Age: 65 yrs Sex: Male : 1950 Arrival Date: 11/15/2016 Time: 07:24 Bed 12 Private MD: [place] Diagnosis: Gastritis, unspecified, without bleeding Presentation: 11/15 07:28 Presenting complaint: Patient states: Has been taking Nitro for last 3 days, decreased mcp appetite, nauseous. Has had abdominal and chest pain on and off. FSBS--112, SL established left forearm #20. Adult Sepsis Screening: The patient does not have new or worsening altered mentation. Patient's respiratory rate is less than 22. Systolic blood pressure is greater than 100. Patient has a qSOFA score of 0- Negative Sepsis Screen. Suicide/Homicide risk assessment- the patient denies having any suicidal and/or homicidal ideations and does not present with any other emotional, behavioral or mental health complaints. Status: Patient is not a rn patient services or dependent. Transition of care: patient was not received from another setting of care. 07:28 Acuity: ROXANE Level 3 [facility] 07:28 Method Of Arrival: Ambulance [facility] Triage Assessment: 07:36 General: Appears uncomfortable, Behavior is cooperative. Pain: Location: chest and mcp abdomen Pain currently is 5 out of 10 on a pain scale. HIV screening NA for this visit Offered previously. Respiratory: Airway is patent Respiratory effort is even, unlabored. GI: Abdomen is distended. Derm: Skin is pink, warm & dry. Historical: - Allergies: Aspirin; PENICILLINS; - Home Meds: 1. isosorbide mononitrate 30 mg Oral Tb24 1 tab once daily 2. cyclobenzaprine 10 mg Oral tab hs 3. multivitamin Oral tab 1 tablet daily 4. oxycodone-acetaminophen 5-325 mg Oral tab 1 tab every 4-6 hours 5. atorvastatin 40 mg oral tab 1 tab once daily 6. Vitamin D Oral 1,000 unit daily 7. meloxicam 15 mg oral tab 1 tab once daily 8. Nitrostat 0.4 mg SL subl - PMHx: Hypercholesterolemia; Hypertension; MIx2; Vertigo; - PSHx: Repair left thumb injury; Angioplasty; gastric surgery for ulcers; - Social history: Smoking status: Patient uses tobacco products, heavy tobacco smoker. No barriers to communication noted, The patient speaks fluent [place]amb[place]. - Family history: Not pertinent. - : The pt / caregiver states he / she is not on anticoagulants. Home medication list is obtained from the patient. - Exposure Risk Screening:: None identified. Screenin:47 Screening information is obtained from the patient. Fall risk: No risks identified. ck1 Assistance ADL's: requires no assistance with activities of daily living. Abuse/DV Screen: The patient / caregiver reports he/she is: not in a situation that causes fear, pain or injury. Nutritional screening: No deficits noted. Advance Directives: Currently, there is no health care proxy. home support is adequate. Assessment: 07:48 General: Appears uncomfortable, Behavior is appropriate for age, cooperative. Pain: ck1 Location: epigastric area and right upper quadrant Pain currently is 6 out of 10 on a pain scale. Neurological: Level of Consciousness is awake, alert, obeys commands, Oriented to person, place, time. Respiratory: Respiratory effort is unlabored, Respiratory pattern is regular, symmetrical. GI: Abdomen is distended, Bowel sounds present X 4 quads. Abd is tender to palpation in right upper quadrant. Derm: Skin is intact, Skin is pink, warm & dry. Musculoskeletal: Circulation, motion, and sensation intact Range of motion intact in all extremities. 08:18 General: Appears in no apparent distress, comfortable, Behavior is appropriate for age, ck1 cooperative. Pain: Denies pain. Neurological: Level of Consciousness is awake, alert, obeys commands, Oriented to person, place, time. Cardiovascular: Rhythm is regular Chest pain is denied. Respiratory: Respiratory effort is unlabored, Respiratory pattern is regular, symmetrical. GI: Abdomen is distended, Denies nausea, vomiting, pain. Derm: Skin is intact, Skin is pink, warm & dry. Musculoskeletal: No deficits noted. 09:17 General: Patient complaining of "sharp" pain in abdomen 08/21. Medicated per orders, ck1 family members at bedside. Call light in reach, will continue to monitor patient. 10:15 Reassessment: Patient appears in no apparent distress at this time. Patient denies pain ck1 at this time. Patient states feeling better. 11:15 Reassessment: Patient appears in no apparent distress at this time. Patient states ck1 feeling better. Patient states symptoms have improved. 12:15 General: Patient waiting for family members to bring his clothes in order to be ck1 discharged home. No acute distress noted at this time. 12:58 General: Appears comfortable, to be sleeping. Behavior is appropriate for age, ck1 cooperative, quiet. Pain: Denies pain. Neurological: No deficits noted. Respiratory: Respiratory effort is even, unlabored, Respiratory pattern is regular, symmetrical. GI: No deficits noted. Derm: Skin is pink, warm & dry. Vital Signs: 07:32 BP 179 / 89; Pulse 63; Resp 20; Temp 97.4(O); Pulse Ox 97% on R/A; Weight 117.93 kg; jml1 Height 5 ft. 11 in. (180.34 cm); Pain 4/10; 07:54 BP 132 / 61 (auto/); ck1 07:54 Pulse 56 MON; Pulse Ox 96% ; ck1 08:09 BP 149 / 73 (auto/); ck1 08:09 Pulse 60 MON; Pulse Ox 95% ; ck1 08:15 BP 139 / 69 (auto/); ck1 08:16 Pulse 62 MON; Pulse Ox 94% ; ck1 08:17 BP 139 / 69; Pulse 60; Resp 18; Temp 96.9(O); Pulse Ox 95% on R/A; Pain 0/10; ck1 08:24 BP 124 / 63 (auto/); ck1 08:25 Pulse 60 MON; Pulse Ox 94% ; ck1 08:39 BP 119 / 59 (auto/); ck1 08:41 Pulse 64 MON; Pulse Ox 95% ; ck1 08:54 BP 156 / 70 (auto/); ck1 08:54 Pulse 60 MON; Pulse Ox 94% ; ck1 09:09 BP 130 / 60 (auto/); ck1 09:09 Pulse 58 MON; Pulse Ox 95% ; ck1 09:24 BP 147 / 103 (auto/); ck1 09:24 Pulse 58 MON; Pulse Ox 95% ; ck1 09:39 BP 124 / 60 (auto/); ck1 09:39 Pulse 54 MON; Pulse Ox 96% ; ck1 09:42 Pain 0/10; ck1 09:43 Resp 18; Temp 97.9(O); Pain 0/10; ck1 09:54 BP 110 / 53 (auto/); ck1 09:55 Pulse 50 MON; Pulse Ox 93% ; ck1 10:09 BP 111 / 55 (auto/); ck1 10:10 Pulse 56 MON; Pulse Ox 93% ; ck1 10:24 BP 111 / 55 (auto/); ck1 10:25 Pulse 50 MON; Pulse Ox 94% ; ck1 10:39 BP 115 / 56 (auto/); ck1 10:40 Pulse 54 MON; Pulse Ox 96% ; ck1 10:54 BP 108 / 56 (auto/); ck1 10:55 Pulse 52 MON; Pulse Ox 95% ; ck1 11:09 BP 108 / 55 (auto/); ck1 11:09 Pulse 52 MON; Pulse Ox 95% ; ck1 11:24 BP 119 / 56 (auto/); ck1 11:25 Pulse 52 MON; Pulse Ox 96% ; ck1 11:39 BP 115 / 56 (auto/); ck1 11:40 Pulse 54 MON; Pulse Ox 94% ; ck1 11:40 Resp 18; Temp 96.9(T); Pain 0/10; ck1 11:54 BP 102 / 51 (auto/); ck1 11:54 Pulse 54 MON; Pulse Ox 96% ; ck1 07:32 Body Mass Index 36.26 (117.93 kg, 180.34 cm) jml1 Vitals: 07:49 Log In Time N/A - ambulance arrival. ck1 ED Course: 07:25 Patient visited by Ro Abdullahi, Securities Teller. lbd 07:25 Patient moved to Waiting lbd 07:26 [facility] is Private Physician. lbd 07:26 Kenya Hernández MD is Attending Physician. sd1 07:26 Patient moved to 12 lbd 07:27 Patient visited by Kenya Hernández MD. sd1 07:30 Triage Initiated mcp 07:33 Patient visited by Antonio Bean. jml1 07:37 Maintain field IV. Dressing intact. Good blood return noted. Site clean & dry. Gauge & mcp site: #20 left forearm. 07:38 Patient visited by Erin Velazquez RN. mcp 07:43 Patient visited by Antonio Bean. jml1 07:43 EKG done. (by ED staff). Reviewed by Kenya Hernández MD. jml1 07:47 Cardiac Injury Profile Sent. ck1 07:47 Troponin Sent. ck1 07:47 Liver Profile Sent. ck1 07:47 Lipase Sent. ck1 07:47 CBC with Diff Sent. ck1 07:47 Basic Metabolic Profile Sent. ck1 07:47 Amylase Sent. ck1 07:48 The patient / caregiver is instructed regarding the plan of care and ED course. ck1 08:17 Patient visited by Moon Pedroza,BEN. ck1 08:51 Patient visited by Moon Pedroza RN. ck1 09:14 Patient visited by Moon Pedroza RN. ck1 09:29 [facility] Payment Agreement was scanned into [employer] and attached to record. lg 09:41 Patient visited by Moon Pedroza RN. ck1 10:16 Patient visited by Moon Pedroza RN. ck1 11:18 Moon Pedroza RN is Primary Nurse. ck1 11:22 Patient visited by Moon Pedroza RN. ck1 11:50 Patient visited by Moon Pedroza RN. ck1 11:59 [facility] is Referral Physician. sd1 12:04 Discontinued lock intact, bleeding controlled, pressure dressing applied, No ck1 redness/swelling at site. No procedures done that require assistance. 12:07 Mark Agustin is Referral Physician. sd1 12:47 Primary Nurse role handed off by Moon Pedroza RN mk4 12:52 Moon Pedroza RN is Primary Nurse. ck1 15:03 T-Sheet-- Draft Copy was scanned into [employer] and attached to record. gb 15:03 ECG/EKG was scanned into [employer] and attached to record. gb 20:05 EKG-ADULT Returned. EDMS Administered Medications: 08:00 Drug: NS 0.9% 1000 ml [sodium chloride 0.9 % intravenous solution] Route: IV; Rate: 250 ck1 mL/hr; Site: left forearm; 08:00 Drug: morphine 4 mg [morphine 4 mg/mL intravenous cartridge (1 mL)] Route: IVP; Site: ck1 left forearm; 08:17 Follow up: BP 139 / 69; Pulse 60 bpm; Resp 18 bpm; Temp 96.9 Oral; Pulse Ox 95% RA; ck1 Pain 0/10 Adult; Response: Confirmed pt not driving.; No Adverse Reaction; Pain is resolved 08:00 Drug: Ondansetron 4 mg [ondansetron HCl 2 mg/mL intravenous solution (2 mL)] Route: ck1 IVP; Site: left forearm; 08:00 Drug: GI Cocktail - (Alum-Mag Hydroxide-Simeth Suspension 225 mg-200 mg-25 mg/5 mL 30 ck1 ml, Lidocaine Liquid 2 % 10 ml, Hyoscyamine Liquid 10 ml) Route: PO; 08:50 Follow up: Response: No Adverse Reaction; Pain is resolved ck1 09:14 Drug: morphine 4 mg [morphine 4 mg/mL intravenous cartridge (1 mL)] Route: IVP; Site: ck1 left forearm; 09:42 Follow up: Pain 0/10 Adult; Response: Confirmed pt not driving.; No Adverse Reaction; ck1 Pain is resolved 09:26 Drug: pantoprazole 40 mg [pantoprazole 40 mg intravenous solution] Route: IV; Rate: ck1 bolus; Site: left antecubital; 09:26 Drug: Sucralfate 1 grams [sucralfate 1 gram tablet (1 tabs)] Route: PO; ck1 Order Results: Lab Order: Amylase; SPEC'M 11/15/16 07:45 Test: AMYLASE; Value: 23; Range: 25-115; Abnormal: Below low normal; Units: U/L; Status: F Lab Order: Basic Metabolic Profile; SPEC'M 11/15/16 07:45 Test: GLUCOSE, FASTING; Value: 93; Range: 80-110; Units: MG/DL; Status: F Test: BLOOD UREA NITROGEN; Value: 25; Range: 7-18; Abnormal: Above high normal; Units: MG/DL; Status: F Test: CREATININE FOR GFR; Value: 1.12; Range: 0.70-1.30; Units: MG/DL; Status: F Test: GLOMERULAR FILTRATION RATE; Value: > 60.0; Range: >49; Status: F Test: SODIUM LEVEL; Value: 142; Range: 136-145; Units: MEQ/L; Status: F Test: POTASSIUM SERUM; Value: 4.1; Range: 3.5-5.1; Units: MEQ/L; Status: F Test: CHLORIDE LEVEL; Value: 106; Range: 98-107; Units: MEQ/L; Status: F Test: CARBON DIOXIDE LEVEL; Value: 26; Range: 21-32; Units: MEQ/L; Status: F Test: ANION GAP; Value: 10; Range: 8-16; Units: MEQ/L; Status: F Test: CALCIUM LEVEL; Value: 8.9; Range: 8.8-10.2; Units: MG/DL; Status: F Test Note: ; Units are mL/min/1.73 m2 Chronic Kidney Disease Staging per NKF: Stage I & II GFR >=60 Normal to Mildly Decreased Stage III GFR 30-59 Moderately Decreased Stage IV GFR 15-29 Severely Decreased Stage V GFR <15 Very Little GFR Left ESRD GFR <15 on REGISTRATION MANAGER Lab Order: CBC with Diff; SPEC'M 11/15/16 07:45 Test: WHITE BLOOD COUNT; Value: 12.8; Range: 4.0-10.0; Abnormal: Above high normal; Units: K/mm3; Status: F Test: RED BLOOD COUNT; Value: 4.64; Range: 4.30-6.10; Units: M/mm3; Status: F Test: HEMOGLOBIN; Value: 15.0; Range: 14.0-18.0; Units: g/dl; Status: F Test: HEMATOCRIT; Value: 43.7; Range: 42.0-52.0; Units: %; Status: F Test: MEAN CORPUSCULAR VOLUME; Value: 94.3; Range: 80.0-96.0; Units: fl; Status: F Test: MEAN CORPUSCULAR HEMOGLOBIN; Value: 32.4; Range: 27.0-33.0; Units: pg; Status: F Test: MEAN CORPUSCULAR HGB CONC; Value: 34.3; Range: 32.0-36.5; Units: g/dl; Status: F Test: RED CELL DISTRIBUTION WIDTH; Value: 14.2; Range: 11.5-14.5; Units: %; Status: F Test: PLATELET COUNT, AUTOMATED; Value: 192; Range: 150-450; Units: k/mm3; Status: F Test: NEUTROPHILS %; Value: 72.2; Range: 36.0-66.0; Abnormal: Above high normal; Units: %; Status: F Test: LYMPH %; Value: 18.2; Range: 24.0-44.0; Abnormal: Below low normal; Units: %; Status: F Test: MONO %; Value: 4.4; Range: 0.0-5.0; Units: %; Status: F Test: EOS %; Value: 1.7; Range: 0.0-3.0; Units: %; Status: F Test: BASO %; Value: 2.0; Range: 0.0-1.0; Abnormal: Above high normal; Units: %; Status: F Test: LARGE UNSTAINED CELL %; Value: 1.5; Range: 0.0-4.0; Units: %; Status: F Test: NEUTROPHILS #; Value: 9.3; Range: 1.8-7.7; Abnormal: Above high normal; Units: K/mm3; Status: F Test: LYMPH #; Value: 2.5; Range: 1.5-4.5; Units: K/mm3; Status: F Test: MONO #; Value: 0.6; Range: 0.0-0.8; Units: K/mm3; Status: F Test: EOS #; Value: 0.2; Range: 0.0-0.50; Units: K/mm3; Status: F Test: BASO #; Value: 0.2; Range: 0.0-0.2; Units: K/mm3; Status: F Test: LARGE UNSTAINED CELL #; Value: 0.2; Range: 0.0-0.4; Units: K/mm3; Status: F Lab Order: Lipase; SPEC'M 11/15/16 07:45 Test: LIPASE; Value: 102; Range: 73-393; Units: U/L; Status: F Lab Order: Liver Profile; SPEC'M 11/15/16 07:45 Test: AST/SGOT; Value: 19; Range: 15-37; Units: U/L; Status: F Test: ALT/SGPT; Value: 30; Range: 12-78; Units: U/L; Status: F Test: ALKALINE PHOSPHATASE; Value: 82; Range: 45-117; Units: U/L; Status: F Test: BILIRUBIN,TOTAL; Value: 0.6; Range: 0.2-1.0; Units: MG/DL; Status: F Test: BILIRUBIN,DIRECT; Value: 0.2; Range: 0.0-0.2; Units: MG/DL; Status: F Test: TOTAL PROTEIN; Value: 7.3; Range: 6.4-8.2; Units: GM/DL; Status: F Test: ALBUMIN; Value: 3.6; Range: 3.2-5.2; Units: GM/DL; Status: F Test: ALBUMIN/GLOBULIN RATIO; Value: 0.97; Range: 1.00-1.93; Abnormal: Below low normal; Status: F Lab Order: Cardiac Injury Profile; SPEC'M 11/15/16 07:45 Test: CPK CREATINE PHOSPHOKINASE; Value: 205; Range: 39-308; Units: U/L; Status: F Test: CK-MB VALUE MASS; Value: 2.1; Range: 0.0-3.6; Units: NG/ML; Status: F Test: MB/CK RELATIVE INDEX; Value: 1.02; Range: < OR =4; Status: F Test Note: ; DIAGNOSIS CRITERIA MMB ng/ml Relative Index (RI) NON-AMI < or = 5 N/A JACOBO ZONE > 5 < or = 4 AMI > 5 > 4 Lab Order: Troponin; SPECM 11/15/16 07:45 Test: TROPONIN I; Value: < 0.02; Range: < 0.10; Units: NG/ML; Status: F Test Note: ; Troponin I Reference Interval for [employer] LOCI: 99th Percentile= 0.00-0.045 ng/ml Risk Stratification: <= 0.10 ng/ml Decreased Risk for Adverse Clinical Events. 0.10-1.50 ng/ml Increased Risk for Adverse Clinical Events. Evaluation of additional criterion and/or repeat testing in 2-6 hours is suggested to rule out myocardial damage. >= 1.50 ng/ml Indicative of Myocardial Injury. 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 sd1 12:04 Discharge Assessment: Patient awake, alert and oriented x 3. No cognitive and/or ck1 functional deficits noted. Patient verbalized understanding of disposition instructions. patient administered narcotics - yes. Pt provided with safe discharge. The following High Risk Discharge criteria are identified: None. Discharged to home ambulatory, with family. Condition: stable. No special radiology studies were completed. Property :Personal belongings accompany Pt. 12:18 Discharge instructions given to patient, Instructed on discharge instructions, follow ck1 up and referral plans. medication usage, Demonstrated understanding of instructions, medications, Pt was receptive of discharge instructions/ teaching. Prescriptions given X 2. 13:09 Patient left the ED. ck1 Signatures: Dispatcher [employer] EDMS Kenya Hernández MD MD sd1 Ro Abdullahi, Securities Teller Unit lbd Erin Velazquez RN RN [facility] Elisha Dyson, Reg Reg gb Orville Correa, Reg Reg lg Moon Pedroza RN RN ck1 Antonio Beanl1 Breonna Mccurdy RN RN mk4 Corrections: (The following items were deleted from the chart) 09:14 09:14 morphine 4 mg IVP in left antecubital ck1 ck1 Chart Complete MTDD
== END 2016-11-15 13:09 | disposition home or self-care (01) ==
LOC: M ED 07:24
DX: R10.9 Unspecified abdominal pain (principal); R11.2 Nausea with vomiting, unspecified; K52.9 Noninfective gastroenteritis and colitis, unspecified; I10 Essential (primary) hypertension; I25.10 Atherosclerotic heart disease of native coronary artery without angina pectoris; I25.2 Old myocardial infarction; Z95.5 Presence of coronary angioplasty implant and graft; E78.00 Pure hypercholesterolemia, unspecified; K27.9 Peptic ulcer, site unspecified, unspecified as acute or chronic, without hemorrhage or perforation; Z98.84 Bariatric surgery status; F17.210 Nicotine dependence, cigarettes, uncomplicated; Z79.899 Other long term (current) drug therapy; Z88.0 Allergy status to penicillin; Z88.6 Allergy status to analgesic agent
CPT/HCPCS: 80048; 80076; 82150; 82550; 82553; 83690; 85025; 93005; 93041; 96374; 96375; 96376; 99284; C9113; J2405

== ENCOUNTER → 2017-04-27 | Outpatient (CLI) | payer MEDICARE ==
[~2017-04-27] VITALS: Ht 177.8 cm; Wt 113.4 kg
[~2017-04-27] MED LIST changes: +ASPI81TA85 PO; -COLA100C PO; +COLA100C3 PO; +CYCL10TA PO; +LIDOCAINE 2% INJ 100 MG/5 ML SDV (FOR ANES.) As Ordered ONE; +MELO15TA4 PO; +METO12TA PO; +NITROGLYCERIN 0.4 MG SUBL TABLET SL PRN; +NS 1,000 ML IV ONE; +PHENYLephrine HCL 500 MCG/5 ML (100MCG/ML) SYRINGE (J2370) As Ordered ONE; +PROPOFOL 200 MG/20 ML VIAL As Ordered ONE; +PROPOFOL 500 MG/50 ML VIAL As Ordered ONE; +VARE1TA PO
--- NOTE | 2017-04-27 12:11 | ROOR ---
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 Requesting Provider: Medicines: Monitored Anesthesia Care Complications: No immediate complications. Procedure: Pre-Anesthesia Assessment: - The heart rate, respiratory rate, oxygen saturations, blood pressure, adequacy of pulmonary ventilation, and response to care were monitored throughout the procedure. The Endoscope was introduced through the mouth, and advanced to the second part of duodenum. The upper GI endoscopy was accomplished without difficulty. The patient tolerated the procedure well. Findings: The examined esophagus was normal. The entire examined stomach was normal. (large compliant suggestive of chronic gastric outlet restriction) A severe post-ulcer deformity was found in the duodenal bulb. An acquired benign-appearing, intrinsic moderate stenosis was found in the duodenal bulb and was traversed after dilation. This was biopsied with a cold forceps for histology. A TTS dilator was passed through the scope. Dilation with an 8-9-10 mm balloon dilator was performed to 10 mm. The dilation site was examined and showed moderate improvement in luminal narrowing. The exam of the duodenum was otherwise normal. Impression: - Normal esophagus. - Normal stomach. 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 (benign appearance, likely related to previous ulcer disease). Dilated to 10 mm to treat gastric outlet restriction. Biopsied. Recommendation: - Telephone endoscopist for pathology results in 2 weeks. - Observe patient's clinical course. - Use Prilosec (omeprazole) 40 mg PO daily indefinitely. Mark Agustin MD Mark AGUSTIN MD 04/27/2017 12:11:34 PM This report has been signed electronically. Number of Addenda: 0 Note Initiated On: 04/27/2017 11:30 AM Estimated Blood Loss: Estimated blood loss: none.
--- NOTE | 2017-04-27 12:28 | ROOR ---
Patient Name: Adilson Dill Procedure Date: 04/27/2017 11:30 AM Date of : 1950 Age: 66 Room: [facility] Gender: Male Note Status: Finalized Procedure: Colonoscopy Indications: Screening for colorectal malignant neoplasm Providers: Mark AGUSTIN MD Referring MD: Marlin [facility]FANA [facility], Admin. Requesting Provider: Medicines: Monitored Anesthesia Care Complications: No immediate complications. Procedure: Pre-Anesthesia Assessment: - The heart rate, respiratory rate, oxygen saturations, blood pressure, adequacy of pulmonary ventilation, and response to care were monitored throughout the procedure. The Colonoscope was introduced through the anus and advanced to the cecum, identified by appendiceal orifice and ileocecal valve. The colonoscopy was performed without difficulty. The patient tolerated the procedure well. The quality of the bowel preparation was good. Findings: The perianal and digital rectal examinations were normal. Three flat polyps were found in the sigmoid colon and distal descending colon. The polyps were 3 to 5 mm in size. These polyps were removed with a cold snare. Resection and retrieval were complete. A 4 mm polyp was found in the rectum. The polyp was sessile. The polyp was removed with a cold snare. Resection and retrieval were complete. A few medium-mouthed diverticula were found in the sigmoid colon. Small Internal Hemorrhoids. Impression: - Three 3 to 5 mm polyps in the sigmoid colon and in the distal descending colon, removed with a cold snare. Resected and retrieved. - One 4 mm polyp in the mid rectum, removed with a cold snare. Resected and retrieved. - Mild diverticulosis in the sigmoid colon. - Small Internal Hemorrhoids. - The colonoscopy was otherwise normal. Recommendation: - Repeat colonoscopy in 3 years for surveillance. Mark Agustin MD Mark AGUSTIN MD 04/27/2017 12:27:27 PM This report has been signed electronically. Number of Addenda: 0 Note Initiated On: 04/27/2017 11:30 AM Estimated Blood Loss: Estimated blood loss: none.
[2017-04-27 13:20] VITALS: BP 106/56
== END | disposition home or self-care (01) ==
LOC: M OPP 10:16
PROVIDERS: ATTEND Internal Medicine Gastroenterology
DX: Z12.11 Encounter for screening for malignant neoplasm of colon (principal); D12.5 Benign neoplasm of sigmoid colon; D12.4 Benign neoplasm of descending colon; D12.8 Benign neoplasm of rectum; K57.30 Diverticulosis of large intestine without perforation or abscess without bleeding; K64.8 Other hemorrhoids; R10.13 Epigastric pain; R93.3 Abnormal findings on diagnostic imaging of other parts of digestive tract; K31.5 Obstruction of duodenum; K31.89 Other diseases of stomach and duodenum; I10 Essential (primary) hypertension; I25.10 Atherosclerotic heart disease of native coronary artery without angina pectoris; Z95.5 Presence of coronary angioplasty implant and graft; R12 Heartburn; R23.3 Spontaneous ecchymoses; M19.90 Unspecified osteoarthritis, unspecified site; K27.9 Peptic ulcer, site unspecified, unspecified as acute or chronic, without hemorrhage or perforation; M54.9 Dorsalgia, unspecified; R51 Headache; J20.9 Acute bronchitis, unspecified; F17.290 Nicotine dependence, other tobacco product, uncomplicated; Z88.0 Allergy status to penicillin; Z79.82 Long term (current) use of aspirin; Z79.899 Other long term (current) drug therapy; Z80.3 Family history of malignant neoplasm of breast
CPT/HCPCS: 43239; 43249; 45385; 88305; J2370

== ENCOUNTER 2017-08-15 12:57 | Inpatient (IN) | payer MEDICARE ==
[~2017-08-15] VITALS: Ht 177.8 cm; Wt 92.5 kg
[~2017-08-15 12:57] MED LIST changes: -COLA100C3 PO; +COLA100C5 PO; -LIDOCAINE 2% INJ 100 MG/5 ML SDV (FOR ANES.) As Ordered ONE; -METO12TA PO; +METO1TAB87 PO; -NITROGLYCERIN 0.4 MG SUBL TABLET SL PRN; -NS 1,000 ML IV ONE; -PHENYLephrine HCL 500 MCG/5 ML (100MCG/ML) SYRINGE (J2370) As Ordered ONE; -PROPOFOL 200 MG/20 ML VIAL As Ordered ONE; -PROPOFOL 500 MG/50 ML VIAL As Ordered ONE
[2017-08-15] MEDS ORDERED: MORPHINE 4 MG/ML 1ML SYRINGE IV ONE (14:00)
[2017-08-15 14:03] LABS: BASO % 0.1 % (0.0-1.0); IMMATURE GRANULOCYTE % 0.8 % (0-0); LYMPH # 0.8 10^3/uL (1.5-4.5); LYMPH % 3.8 % (24.0-44.0); MEAN CORPUSCULAR HGB CONC 35.2 g/dl (32.0-36.5); MEAN CORPUSCULAR VOLUME 93.5 fl (80.0-96.0); MONO % 5.1 % (0.0-5.0); NEUTROPHILS # 18.2 10^3/uL (1.8-7.7); NEUTROPHILS % 90.2 % (36.0-66.0); PLATELET COUNT, AUTOMATED 261 10^3/uL (150-450); RED CELL DISTRIBUTION WIDTH 13.6 % (11.5-14.5); WHITE BLOOD COUNT 20.2 10^3/uL (4.0-10.0)
[2017-08-15 14:08] LABS: ALBUMIN 4.2 GM/DL (3.2-5.2); ALBUMIN/GLOBULIN RATIO 1.24 (1.00-1.93); ALKALINE PHOSPHATASE 87 U/L (45-117); ALT/SGPT 65 U/L (12-78); ANION GAP 13 MEQ/L (8-16); AST/SGOT 35 U/L (15-37); BILIRUBIN,DIRECT 0.3 MG/DL (0.0-0.2); BLOOD UREA NITROGEN 39 MG/DL (7-18); CALCIUM LEVEL 9.3 MG/DL (8.8-10.2); CARBON DIOXIDE LEVEL 24 MEQ/L (21-32); CHLORIDE LEVEL 103 MEQ/L (98-107); CREATININE FOR GFR 1.29 MG/DL (0.70-1.30); GLOMERULAR FILTRATION RATE 59.5 (>49); GLUCOSE, FASTING 171 MG/DL (80-110); POTASSIUM SERUM 3.9 MEQ/L (3.5-5.1); SODIUM LEVEL 140 MEQ/L (136-145); TOTAL PROTEIN 7.6 GM/DL (6.4-8.2)
[2017-08-15] MEDS ORDERED: ISOVUE-370 76% 100ML VIAL (Q9967) As Ordered ONE (14:15)
[2017-08-15 14:47] LABS: ADD MORPHOLOGY? NO
--- NOTE | 2017-08-15 15:46 | REP ---
CT angiography of the chest with IV contrast: History: Right-sided abdominal pain times 3 days. Left chest pain. There is a history of gastric surgery for ulcer. CT contrast dose: 100 mL of Isovue [address] findings: There is good opacification of the pulmonary arterial tree and there is no CT evidence of pulmonary embolus. The thoracic aorta enhances homogeneously and is normal in coarse and contour. There is some vascular calcification in the left coronary artery distribution. No pleural effusion is seen. However, there is an extensive pneumomediastinum throughout the chest. There are small bilateral pneumothoraces and there is fairly extensive extrathoracic soft tissue emphysema anteriorly and posteriorly about the right chest and extending up to the thoracic inlet. There are bullous emphysematous changes in the upper lobes of the lungs bilaterally. Some subsegmental atelectatic changes seen in the left lower lobe. No infiltrate is seen. No bony destructive lesion is seen. Impression: 1. Small bilateral pneumothoraces. 2. Severe extensive pneumomediastinum and fairly extensive extrathoracic subcutaneous emphysema consistent with barotrauma in the chest or abdomen. 3. No CT evidence of pulmonary embolus or thoracic aortic disease. Findings were telephoned to Dr. Martin at the time of this dictation. Signed by Tim Domingo MD 08/15/2017 03:56 P
--- NOTE | 2017-08-15 15:53 | REP ---
CT abdomen and pelvis with IV, but without oral contrast: History: Right-sided abdominal pain for 3 days. The patient has a history of previously operated gastric ulcer. CT contrast dose: 100 mL of intravenous Isovue 370. CT findings: There is a moderate amount of pneumoperitoneum in the upper abdomen, particularly the right upper quadrant. This is most concentrated around the descending duodenum where there are innumerable bubbles of extraluminal gas. There is extraluminal gas surrounding the adjacent right colon. There is retroperitoneal gas extending into the pararenal and perirenal fat bilaterally. There is some extra abdominal subcutaneous emphysema in the right flank. The stomach is moderately dilated and filled with fluid consistent with gastric outlet obstruction. The pancreas is unremarkable, although there is edematous fluid adjacent to it. This fluid extends to some degree into the region of the gastrocolic ligament and small bowel mesentery. There are multiple air bubbles in the liver consistent with portal venous air and there are one or two bubbles of air in the main portal vein itself. This is most often seen in the setting of bowel ischemia. There is a low-density cyst in the left lobe of the liver 2.3 cm in greatest diameter. Gallbladder is unremarkable. No splenic lesion is seen. No adrenal lesion is seen. There is no evidence of hydronephrosis. There are bilateral infrarenal calculi. These include a 6 mm nonobstructive calculus in the right renal pelvis and a 14 mm calculus in the lower pole of the left kidney. Small and large intestinal bowel loops are otherwise unremarkable. Seminal vesicles, urinary bladder and prostate are unremarkable. There is an umbilical hernia transmitting a small quantity of abdominal fat. No other abdominal wall defect is seen. No bony destructive lesion is appreciated. Degenerative changes are seen in the lumbar spine. Impression: Findings indicative of bowel perforation with pneumoperitoneum. This is most likely at the level of the descending duodenum, less likely the adjacent right colon. In addition to the pneumoperitoneum there is extensive retroperitoneal and extra abdominal interstitial emphysema. There is also a small quantity of portal venous air visible in the liver and the portal vein. There is evidence of gastric outlet obstruction with moderate dilation of the stomach which is filled with fluid. Bilateral intrarenal calculi are observed without hydronephrosis. Findings were discussed with Dr. Martin at the time of this dictation. Signed by Tim Domingo MD 08/15/2017 03:57 P
[2017-08-15] MEDS ORDERED: ATOR40TA75 PO (16:05)
[2017-08-15] MEDS ORDERED: GASTROGRAFIN SOLUTION 30ML (Q9963) As Ordered ONE (16:06)
[2017-08-15] MEDS ORDERED: OMEP40CA2 PO (16:07)
[2017-08-15] MEDS ORDERED: ERTAPENEM SODIUM 1 GM in NS MINI-BAG PLUS 50 ML IV ONE (16:15)
[2017-08-15] MEDS ORDERED: fentaNYL 250 MCG/5 ML INJECTION (J3010) As Ordered ONE (16:43)
[2017-08-15] MEDS ORDERED: LIDOCAINE 2% INJ 100 MG/5 ML SDV (FOR ANES.) As Ordered ONE (16:43)
[2017-08-15] MEDS ORDERED: ROCURONIUM BROMIDE 50 MG/5 ML VIAL As Ordered ONE ×2 (16:43→18:37)
[2017-08-15] MEDS ORDERED: PROPOFOL 200 MG/20 ML VIAL As Ordered ONE (16:43)
[2017-08-15] MEDS ORDERED: MIDAZOLAM INJ 2 MG/2 ML VIAL (J2250) As Ordered ONE (16:44)
[2017-08-15] MEDS: LR 1,000 ML IV SCH (17:12)
--- NOTE | 2017-08-15 17:14 | REP ---
Emergency esophagram: History: Question esophageal rupture. CT chest and abdomen and pelvis findings well known to me. Findings: Half-strength Gastrographin mixed with water is utilized. Coronal EGAN fluoroscopically obtained esophagram films show normal caliber thoracic esophagus with no evidence of extravasation or mucosal irregularity. There is extensive soft tissue emphysema seen incidentally as noted on chest CT indicating pneumomediastinum. A sequence of seven fluoroscopic spot radiographs were obtained. Fluoroscopy time was 20 seconds. Impression: No evidence of esophageal disruption. Gastrographin esophagram. Signed by Tim Domingo MD 08/16/2017 11:16 A
--- NOTE | 2017-08-15 17:27 | HPEPDOC ---
General Surgery H&P Date of Admission History and Physical CHIEF COMPLAINT: Abdominal pain, chest pain, neck pain HISTORY OF PRESENT ILLNESS: A 66-year-old obese gentleman brought in by EMS to the hospital for a 3 day history of abdominal pain which at least for the has been radiating to his mid chest and neck area. This accompanied by vomiting and multiple episodes of retching. Patient reports he has a remote history of perforated ulcer for which we had an ulcer for which she had the ulcer oversewn. Review of his medical records show he has been taking meloxicam as well as aspirin. Patient is a smoker. Reports smoking up to a few months ago 3 packs a day but has cut down to have back today because the apartment where he this has been restricting the smoking area. Denies alcohol intake. Pain started over the right side of the abdomen Sunday morning has persisted and about mid Sunday or Sunday started getting into his chest area. He denies being short of breath. His voice is hoarse. He is not drooling saliva. He is laying down on his left side which is most comfortable position for him. ALLERGIES: Please see below. HOME MEDICATIONS: Please see below. PAST MEDICAL HISTORY: 1. Gastric ulcer, status post repair. 2. Left thumb injury. 3. Hypertension. 4. Hypercholesterolemia. 5. Coronary artery disease. 6. Myocardial infarction times two. 7. Vertigo. 8. Back pain PAST SURGICAL HISTORY: Exploratory laparotomy, oversewing of ulcer Cardiac catheterization with angioplasty 2, stenting 1 1. Left thumb repair. 2. Stent placement status post myocardial infarction at [facility]. 3. Gastric surgery for ulcers. 4. Angioplasty. 5. Sep 2015 nasal polypectomy at the [facility] in [place], [place]. 6. EGD with dilation of duodenal stricture 7. Colonoscopy PERSONAL/SOCIAL HISTORY: Smokes up to 3 packs a day up until recently currently smokes about half a pack a day. Denies alcohol intake. Denies recreational drug use. Goes to the [place] for his medical checkups. REVIEW OF SYSTEMS: GENERAL: Denies fever, denies any weight gain or weight loss HEENT: Denies blurred vision and double vision. Denies ear symptoms. Worse voice NECK: Reports neck pain CARDIOVASCULAR: Reports chest pain, denies palpitations MUSCULOSKELETAL: Reports back pain SKIN: Denies rash. NEUROLOGIC: Denies headache, stroke and transient ischemic attack. PSYCHIATRIC: Denies anxiety and depression. ENDOCRINE: Denies thyroid disease. HEMATOLOGY/ONCOLOGY: Denies any bleeding or clotting disorder. HEART: Denies any palpitations, paroxysmal dyspnea, orthopnea. PULMONARY: Denies chronic cough, dyspnea and wheezing. GASTROINTESTINAL: Denies rectal bleeding, family history of colon cancer, constipation, diarrhea, dysphagia, heartburn and jaundice. GENITOURINARY: Denies dysuria, frequency, hematuria and nocturia. ENDOCRINE: Denies polydipsia, polyphagia, polyuria, heat or cold intolerance. INFECTIOUS: Denies any recent upper respiratory tract infection, UTI, need for use of antibiotics. NUTRITION: Reports poor appetite for the past 3 days PHYSICAL EXAMINATION: VITAL SIGNS: Please see below. GENERAL APPEARANCE: Patient seen at bedside, appears ill, uncomfortable, laying on his left side. HEENT: he is awake, he is able to phonate and talked though his voice is hoarse and has a decreased tone which he says is new only for the past day. CHEST: Extensive anterior and posterior bilateral subcutaneous air NECK: He is neck is short, enlarged with no real bony landmarks that are visible and palpable due to extensive subcutaneous air. LUNGS: Lung sounds are clear to auscultation bilaterally. No wheezing appreciated. HEART: No chest wall abnormalities. Heart rate and rhythm are regular with no murmurs. ABDOMEN: Abdomen is obese, soft, round, also has some subcutaneous air on the upper right abdomen, moderately distended. Generalized direct and rebound tenderness throughout the abdomen. SKIN: Warm, moist. EXTREMITIES: Extremities have no deformities. No edema identified. NEUROLOGICAL: Awake, alert, oriented ANCILLARIES: . LABORATORY DATA: Please see below. MICROBIOLOGY: Please see below. IMAGING: . CTA chest Impression: 1. Small bilateral pneumothoraces. 2. Severe extensive pneumomediastinum and fairly extensive extrathoracic subcutaneous emphysema consistent with barotrauma in the chest or abdomen. 3. No CT evidence of pulmonary embolus or thoracic aortic disease. CT abdomen and pelvis Findings indicative of bowel perforation with pneumoperitoneum. This is most likely at the level of the descending duodenum, less likely the adjacent right colon. In addition to the pneumoperitoneum there is extensive retroperitoneal and extra abdominal interstitial emphysema. There is also a small quantity of portal venous air visible in the liver and the portal vein. There is evidence of gastric outlet obstruction with moderate dilation of the stomach which is filled with fluid. Bilateral intrarenal calculi are observed without hydronephrosis. IMPRESSION AND PLAN: . Patient has a prolonged history of peptic ulcer disease, prior perforation, noncompliance and current use of NSAIDs for his back pain. Back in April it seems like he was admitted for due to duodenitis. During that time he had an endoscopy done documenting stricture at the descending duodenum secondary to an ulcer disease was dilated at that time. So given this extensive history of peptic ulcer disease most likely had perforated duodenal ulcer. He also presents with chest pain and neck pain related to extensive pneumomediastinum, small bilateral pneumothoraces and subcutaneous emphysema around his neck. He had been retching for past couple days so my first concern is for esophageal perforation secondary to Boorhave Syndrome. So after speaking with radiology I did an esophagram. I wanted a barium esophagram though Gastrografin esophagram was done, unbeknownst to me. This did not reveal any esophageal leak. Review off his CT scan also does not show pleural effusion so most likely the retroperitoneal air must have tracked up into the chest. I spoke to him and got consent to bring him to the operating room for exploratory laparotomy. I explained to him that this is a serious problem and most likely he'll continue to be sick. There is a good chance that he will remain on the ventilator postoperatively. I spoke to him about getting healthcare proxy and he designated both his brother and sister who were at the bedside with him. I also spoke to him about his thoughts about resuscitation. He is amenable and he needs to be intubated. He does not want to be resuscitated if his heart stops. He is amenable to blood transfusions, tube feedings and other medications including antibiotics to get him better. He is maintained concern is he does not want to survive if he will be, vegetable or dependent on a ventilator. Vital Signs Vital Signs Date Time Temp Pulse Resp B/P (MAP) Pulse Ox O2 Delivery O2 Flow Rate FiO2 08/15/17 15:55 86 129/60 (83) 94 08/15/17 14:44 20 08/15/17 13:08 97.4 Room Air Laboratory Data Labs 24H Laboratory Tests 2 08/15/17 13:16: Immature Granulocyte % (Auto) 0.8H, White Blood Count 20.2H, Red Blood Count 5.40, Hemoglobin 17.8, Hematocrit 50.5, Mean Corpuscular Volume 93.5, Mean Corpuscular Hemoglobin 33.0, Mean Corpuscular Hemoglobin Concent 35.2, Red Cell Distribution Width 13.6, Platelet Count 261, Neutrophils (%) (Auto) 90.2H, Lymphocytes (%) (Auto) 3.8L, Monocytes (%) (Auto) 5.1H, Eosinophils (%) (Auto) 0.0, Basophils (%) (Auto) 0.1, Neutrophils # (Auto) 18.2H, Lymphocytes # (Auto) 0.8L, Monocytes # (Auto) 1.0H, Eosinophils # (Auto) 0.0, Basophils # (Auto) 0.0 , Immature Granulocyte # (Auto) 0.2H, Nucleated Red Blood Cells % (auto) 0.0, Anion Gap 13, Glomerular Filtration Rate 59.5, Blood Urea Nitrogen 39H, Creatinine 1.29, Sodium Level 140, Potassium Level 3.9, Chloride Level 103, Carbon Dioxide Level 24, Calcium Level 9.3, Aspartate Amino Transf (AST/SGOT) 35 , Alanine Aminotransferase (ALT/SGPT) 65, Total Creatine Kinase 245, Alkaline Phosphatase 87, Total Bilirubin 1.0, Direct Bilirubin 0.3H, Total Protein 7.6, Albumin 4.2, Creatine Kinase MB 2.3, Creatine Kinase MB Relative Index 0.93, Troponin I < 0.02, Albumin/Globulin Ratio 1.24, Lipase 321 CBC/BMP Laboratory Tests 08/15/17 13:16 Red Blood Count 5.40, Mean Corpuscular Volume 93.5, Mean Corpuscular Hemoglobin 33.0, Mean Corpuscular Hemoglobin Concent 35.2, Red Cell Distribution Width 13.6 , Neutrophils (%) (Auto) 90.2 H, Lymphocytes (%) (Auto) 3.8 L, Monocytes (%) ( Auto) 5.1 H, Eosinophils (%) (Auto) 0.0, Basophils (%) (Auto) 0.1, Neutrophils # (Auto) 18.2 H, Lymphocytes # (Auto) 0.8 L, Monocytes # (Auto) 1.0 H, Eosinophils # (Auto) 0.0, Basophils # (Auto) 0.0, Calcium Level 9.3, Aspartate Amino Transf (AST/SGOT) 35, Alanine Aminotransferase (ALT/SGPT) 65, Total Creatine Kinase 245, Alkaline Phosphatase 87, Total Bilirubin 1.0, Direct Bilirubin 0.3 H, Total Protein 7.6, Albumin 4.2 Home Medications Scheduled Aspirin (Aspir-81) 81 Mg Tab, 81 MG PO DAILY, (Reported) Atorvastatin Calcium (Atorvastatin Calcium) 40 Mg Tab, 40 MG PO QHS, (Reported) Cholecalciferol (Vitamin D3) 1,000 Unit Tab, 1,000 UNIT PO DAILY, (Reported) Isosorbide Mononitrate (Isosorbide Mononitrate ER) 30 Mg Tab, 30 MG PO DAILY, ( Reported) Meloxicam (Meloxicam) 15 Mg Tab, 15 MG PO DAILY, (Reported) Metoprolol Tartrate (Metoprolol Tartrate) 25 Mg Tab, 25 MG PO BID, (Reported) Multivitamins *[facility] STOCKED* (Thera M Plus *[facility] STOCKED*) 1 Tab Tab, 1 TAB PO DAILY, (Reported) Omeprazole (Omeprazole) 40 Mg Cap, 40 MG PO DAILY, (Reported) Scheduled PRN Cyclobenzaprine HCl (Cyclobenzaprine HCl) 10 Mg Tab, 10 MG PO DAILY PRN for MUSCLE SPASMS, (Reported) Nitroglycerin (Nitrostat) 0.4 Mg Subl, 0.4 MG SL Q5MP PRN for CHEST PAIN, ( Reported) Allergies Coded Allergies: Penicillins (Unverified Allergy, Unknown, 04/25/17) ORA SIMPSON MD Aug 15, 2017 17:27
[2017-08-15] MEDS ORDERED: CETACAINE SPRAY 20GM (FLOOR STOCK) As Ordered ONE (17:34)
[2017-08-15] MEDS ORDERED: SUCCINYLCHOLINE 100 MG/5 ML SYRINGE (J0330) As Ordered ONE (17:42)
[2017-08-15] MEDS ORDERED: ePHEDrine SULFATE 25 MG/5 ML(5MG/ML) SYRINGE As Ordered ONE (17:59)
[2017-08-15] MEDS ORDERED: PHENYLephrine HCL 500 MCG/5 ML (100MCG/ML) SYRINGE (J2370) As Ordered ONE ×2 (17:59→18:09)
[2017-08-15] MEDS ORDERED: HYDROmorphone HCL 2 MG/ML 1ML VIAL (J1170) As Ordered ONE (18:45)
[2017-08-15] MEDS ORDERED: GLYCOPYRROLATE INJ 0.2 MG/ML 2 ML VIAL As Ordered ONE (20:31)
[2017-08-15] MEDS ORDERED: NEOSTIGMINE 10 MG/10 ML VIAL (J2710) As Ordered ONE (20:31)
[2017-08-15] MEDS ORDERED: ONDANSETRON 4MG/2ML VIAL (J2405) As Ordered ONE (20:31)
[2017-08-15] MEDS ORDERED: PHENYLEPHRINE INJ 10MG/ML VIAL (J2370) As Ordered ONE ×2 (20:46→20:47)
[2017-08-15] MEDS: METOPROLOL TART 25 MG TABLET PO SCH (21:00)
[2017-08-15 23:10] VITALS: O2SAT 100
[2017-08-15] MEDS ORDERED: PROPOFOL 1,000 MG/100 ML VIAL As Ordered ONE (23:12)
[2017-08-15] MEDS ORDERED: MOM 30ML SUSPENSION UDC PO PRN (23:15)
[2017-08-15] MEDS ORDERED: MORPHINE 4 MG/ML 1ML SYRINGE IV PRN (23:15)
[2017-08-15] MEDS ORDERED: ONDANSETRON 4MG/2ML VIAL (J2405) IV PRN (23:15)
--- NOTE | 2017-08-15 23:28 | ROOPDOC ---
[facility] Report Of Operation Report of Operation DATE OF PROCEDURE: 08/15/17 PREPROCEDURE DIAGNOSES: pneumoperitoneum, pneumomediastinum, bilateral pneumothorax POSTPROCEDURE DIAGNOSES: Perforated duodenum, PROCEDURE: Exploratory Laparotomy Omental patch repair duodenal ulcer perforation lateral duodenostomy pyloric exclusion gastrojejunostomy feeding jejunostomy tube placement bilateral chest tube placement left subclavian catheter placement SURGEON: Liu vEerett MD SWITCH ADJUSTER: Mitali Sparrow MD ANESTHESIA: general ESTIMATED BLOOD LOSS: Approximately 100 mL. COMPLICATIONS: none. Patient remains in critical condition REMARKS: PROCEDURE NOTE: Patient was seen and evaluated in the emergency room with three-day history of abdominal pain found to have evidence for a pneumoperitoneum, large amount of retroperitoneal air tracking up to the thorax with bilateral pneumothorax, subcutaneous emphysema on the chest and neck area. He has a prolonged history of peptic ulcer disease, prior perforation and what appears to be active ulcer in April with stricture. He is reported to be poorly compliant with his medications. My first concern was the pneumomediastinum for possible esophageal perforation from the retching. We did get esophagram that did not reveal any spillage. He was advised need to go to the operating room for abdominal exploration. Consent was obtained. He is thoughts on resuscitation was clarified. DESCRIPTION OF PROCEDURE: Patient has been given IV fluids as well as Invanz 1 g IV during his stay in the emergency room. He was evaluated by anesthesia in the emergency room for possible difficult airway. He was well up to the operating room placed supine on the table. Monitoring these have been placed and general endotracheal anesthesia started without any complications. After intubation bilateral chest tubes were placed by me under sterile conditions for the bilateral pneumothorax. A Davis catheter was placed for urine output monitoring. Teds and sequential placed for DVT prophylaxis. His abdomen prepped and draped in usual sterile fashion. After surgical timeout we began her surgery The previous upper midline incision is was opened up and extended down to the area of the umbilicus and deepened through the pannus and subcutaneous tissue. We enter the fascia at the lower most point of the incision this was lifted up with Joaquina clamps and the whole fascial incision was opened up under direct visualization there were omental adhesions that we brought down to fully open up our incision. On entry I did not note any immediate spillage of enteric contents. There was a lot of omental adhesions around the right upper quadrant area as patient had has had a previous ulcer surgery from perforation done remotely. We continued to bring down the omental adhesions to the abdominal wall to fully expose the upper abdomen extending the incision to the xiphisternum. He was placed in mild reverse and ulnar position to bring down the abdominal structures away from the right upper quadrant and turned towards the left side. The Bookwalter instrument was set up. I pulled up the omentum lifted up the transverse colon and try to enter the lesser sac through this way but had so much adhesions at that area and then pulled down on the stomach and entered the lesser sac through the gastrocolic ligament. Going towards right upper quadrant area immediately got black thick contents out. I initially thought as the black material was draping on the underside of the transverse colon that I had ischemic transverse and descending colon but I was able to tease away the fibrous tissue and the colon was evaluated and noted to be healthy. We followed this tract and got into the area just at the duodenal bulb were this black stuff was coming out off from. There was good amount of spillage at the right gutter as well as the perihepatic area and deep into the right side of the peritoneum. This was cleaned up and suctioned off and irrigated and cultures were taken from this area. I continued to take down the hepatic flexure to be able to visualize the duodenum. Mainly by palpation I felt around where the duodenal perforation was. I located this at the apex of the C-loop at the duodenal bulb as it comes down towards the second portion there was about a 2 cm opening with heaped up mucosa. The anterior and lateral portions of the duodenum was quite thin the edges are friable. I did a Swanquarter maneuver freeing up the lateral attachments of the duodenum and the second portion. The sternum evaluate if I could close the perforation primarily and sutures were pulling through. I inserted an 8 Luxembourger pediatric feeding tube to at the incision both proximally and distally to locate where I am at. I opened up the gastrocolic ligament located the gastroduodenal ligament after freeing up to locate the portal triad and followed this up just behind the duodenum. It felt that was close to the opening. Try to free up at the superior portion at the duodenal bulb to see if I could resect it safely and protect the common bile duct insertion but I did not seem to have good margins to free this up and his were getting into the pancreas I been getting more oozing. At this point I evaluated my options. Resection is not possible and an omental patch most likely will not work due to the size of the hole and the condition of the tissues. There is also some report of duodenal stricture at the second portion at the duodenum from the ulcer. I think diversion around the area with the my only option is a pyloric exclusion type of surgery. I dealt with the duodenal perforation by placing an thick healthy omental patch over the area and securing it with 3-0 PDS the edges of the omental patch was also sutured fully with 30 CellCept to fully cover the opening. I placed a lateral duodenostomy tube using a 10 Luxembourger red rubber catheter a small hole was created just at the bottom third portion and threaded through the duodenal bulb through the opening and this was threaded out through the lateral abdominal wall with the inside of the abdominal wall on the outside secured to protect the placement. I then fired a TA 60 stapler with a green load at the mid pylorus area. A gastrojejunostomy was fashioned out by pulling up a loop of the jejunum using a TA 75 stapler for [id number]-ht-[id number] anastomosis and this was closed with TA-30 stapler with a green load. I then placed the feeding jejunostomy distal to this area that was coming out of the right side. Two 19 round Rick drains were placed one underneath the gastrojejunostomy coming off from the right side and one underneath the repair of the duodenal perforation coming off to the right side. The abdomen was irrigated. This was then closed with 1 loop PDS. The subcutaneous tissues were irrigated and the skin was closed loosely with amisha. All the drains were secured to the skin. Patient remains relatively stable but intubated and remains and brought to the recovery room. At the end of the procedure I placed a triple lumen catheter at the left subclavian. With the patient remaining intubated, his left chest and neck was prepped and draped. A central line bundle was used. The finder needle was passed infraclavicularly towards the manubrium sternum with suction applied until we got a return of venous blood. 3 attempts were made before I got into the subclavian vein. A guidewire was passed through the needle. Using a modified Seldinger technique the tract was enlarged with a dilator and a triple- lumen catheter was threaded through the wire. All ports were tested and working well. Patient already has a chest tube from prior pneumothorax on both sides so a pneumothorax from this procedure is not of concern. The catheter was secured to the skin in an antibiotic-containing dressing was placed on top of the skin exit site. Patient remains intubated and was brought to the recovery room, hemodynamically stable. A postop chest x-ray will be taken in the recovery room. ORA EVERETT MD Aug 15, 2017 23:28
[2017-08-15 23:54] LABS: ABG BASE EXCESS -2.9 (-2.0-2.0); ABG HCO3 23.4 MEQ/L (22.0-26.0); ABG PARTIAL PRESSURE CO2 46.3 mmHg (35.0-45.0); ABG PARTIAL PRESSURE O2 112.6 mmHg (75.0-100.0); ABG STANDARD HCO3 22.1 MEQ/L (22.0-26.0); ABG TOTAL CO2 24.8 MEQ/L (23.0-31.0); ABG pH (ARTERIAL) 7.322 UNITS (7.350-7.450)
[2017-08-16] VITALS (34 sets, daily range): BP systolic 87–130; BP diastolic 47–64; O2SAT 97–100
[2017-08-16] MEDS ORDERED: ALBUTEROL SULFATE 2.5 MG/0.5 ML INH NEB SOLN NEB PRN
[2017-08-16] MEDS ORDERED: LR 1,000 ML IV SCH
[2017-08-16] MEDS ORDERED: ONDANSETRON 4MG/2ML VIAL (J2405) IV PRN
[2017-08-16] MEDS ORDERED: fentaNYL 100 MCG/2 ML INJECTION (J3010) IV PRN
[2017-08-16 00:05] LABS: MEAN CORPUSCULAR HEMOGLOBIN 33.2 pg (27.0-33.0); MEAN CORPUSCULAR HGB CONC 34.3 g/dl (32.0-36.5); MEAN CORPUSCULAR VOLUME 96.8 fl (80.0-96.0); PLATELET COUNT, AUTOMATED 190 10^3/uL (150-450)
[2017-08-16 00:11] LABS: ADD MANUAL DIFFER YES; DIFF SLIDE NUMBER 331
[2017-08-16 00:24] LABS: ALBUMIN 2.6 GM/DL (3.2-5.2); ALBUMIN/GLOBULIN RATIO 0.81 (1.00-1.93); BILIRUBIN,TOTAL 1.2 MG/DL (0.2-1.0); CALCIUM LEVEL 8.1 MG/DL (8.8-10.2); CREATININE FOR GFR 1.49 MG/DL (0.70-1.30); GLOMERULAR FILTRATION RATE 50.4 (>49); POTASSIUM SERUM 4.3 MEQ/L (3.5-5.1); TOTAL PROTEIN 5.8 GM/DL (6.4-8.2)
[2017-08-16 00:31] LABS: BANDS 12 % (< 11)
[2017-08-16] MEDS: IPRATROPIUM 0.5MG/ALBUTEROL 2.5MG INH SOL UD 3ML (DUONEB)(J7620) NEB SCH ×6 (00:43→20:22)
[2017-08-16] MEDS: PROPOFOL 1,000 MG in APPROPRIATE DILUENT 1 EA IV SCH ×2 (00:49→05:22)
[2017-08-16] MEDS: LR 1,000 ML IV SCH ×5 (00:49→20:09)
[2017-08-16] MEDS: MIDAZOLAM INJ 2 MG/2 ML VIAL (J2250) IV PRN ×2 (03:41→05:04)
[2017-08-16 05:21] LABS: MEAN CORPUSCULAR HEMOGLOBIN 32.9 pg (27.0-33.0); MEAN CORPUSCULAR HGB CONC 33.8 g/dl (32.0-36.5); MEAN CORPUSCULAR VOLUME 97.4 fl (80.0-96.0); PLATELET COUNT, AUTOMATED 183 10^3/uL (150-450); RED CELL DISTRIBUTION WIDTH 13.9 % (11.5-14.5); WHITE BLOOD COUNT 10.3 10^3/uL (4.0-10.0)
[2017-08-16 05:23] LABS: ADD MANUAL DIFFER YES; DIFF SLIDE NUMBER 102
[2017-08-16 05:36] LABS: ALBUMIN 2.5 GM/DL (3.2-5.2); ALBUMIN/GLOBULIN RATIO 0.96 (1.00-1.93); BILIRUBIN,TOTAL 1.5 MG/DL (0.2-1.0); CALCIUM LEVEL 7.7 MG/DL (8.8-10.2); CREATININE FOR GFR 1.38 MG/DL (0.70-1.30); GLOMERULAR FILTRATION RATE 55.1 (>49); POTASSIUM SERUM 4.3 MEQ/L (3.5-5.1); TOTAL PROTEIN 5.1 GM/DL (6.4-8.2)
[2017-08-16 06:22] LABS: BANDS 17 % (< 11); BASOPHILS 1 % (0-4); EOSINOPHILS 1 % (0-5)
--- NOTE | 2017-08-16 07:53 | ECGEPIP ---
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
--- NOTE | 2017-08-16 07:58 | REP ---
Portable chest, 11:35 p.m., 08/15/2017, single AP view, the patient semi upright: Comparisons are the portable chest 03/24/[address] of 08/15 2017. Pneumomediastinum and subcutaneous emphysema are again identified, similar to the comparison CT. There is a tiny right pneumothorax. No definite left pneumothorax. Cardiac size appears mildly enlarged. There is a left paramediastinal infiltrate. Interstitial markings are mildly accentuated. The nasogastric tube terminates satisfactorily in the upper abdomen. There is a drainage tube entering from left, thoracotomy tube versus abdominal drain. A cannot identify the left hemidiaphragm. There appears to be a surgical drainage tube in the upper abdomen in the midline. There is a right thoracotomy tube. There is an endotracheal tube with its tip in the orifice of the bronchus intermedius. There is a central venous catheter entering from right with the tip at the confluence of the superior vena cava and innominate vein. Signed by Collin Weinstein MD 08/16/2017 07:50 A
[2017-08-16] MEDS: ENOXAPARIN 40 MG/0.4 ML SYRINGE (J1650) SC SCH (08:36)
[2017-08-16] MEDS: PANTOPRAZOLE 40MG INJ (PROTONIX) (C9113) IV SCH ×2 (08:36→21:31)
[2017-08-16] MEDS: MORPHINE 2 MG/ML 1ML SYRINGE IV PRN ×7 (08:36→22:21)
[2017-08-16] MEDS: METOPROLOL TART 25 MG TABLET PO SCH ×2 (08:37→21:31)
--- NOTE | 2017-08-16 08:52 | REP ---
Portable chest x-ray: Single view. History: Status post intubation. Findings: Endotracheal tube remains in good position at the level of the transverse aorta. A nasogastric tube enters left upper quadrant of the abdomen. Bilateral chest tubes are noted in place. There is a left subclavian catheter terminating at the junction of the brachiocephalic vein and SVC. There is no visible pneumothorax. Pneumomediastinum and extrathoracic air is seen extensively as before. There is bibasilar plate-like atelectasis adjacent to the chest tubes. Signed by Tim Domingo MD 08/16/2017 11:18 A
[2017-08-16] MEDS ORDERED: CHLORHEXIDINE ORAL RINSE 0.12%/15ML 120ML BOTTLE MT SCH (09:00)
[2017-08-16 10:31] LABS: ABG BASE EXCESS 1.4 (-2.0-2.0); ABG PARTIAL PRESSURE CO2 36.5 mmHg (35.0-45.0); ABG PARTIAL PRESSURE O2 87.2 mmHg (75.0-100.0); ABG STANDARD HCO3 25.7 MEQ/L (22.0-26.0); ABG TOTAL CO2 26.1 MEQ/L (23.0-31.0); ABG pH (ARTERIAL) 7.454 UNITS (7.350-7.450)
[2017-08-16] MEDS ORDERED: PREVNAR 13 VACCINE SYRINGE (CPT CODE:90670) IM SCH (11:15)
[2017-08-16] MEDS ORDERED: INFLUENZA VIRUS VACCINE HIGH DOSE 0.5 ML SYRINGE (90662) IM SCH (11:15)
--- NOTE | 2017-08-16 12:00 | CCN ---
DATE OF SERVICE: 08/16/2017 NOTE: Mr. Dill remains critically ill with acute respiratory failure postoperatively. No significant hemodynamic events overnight. This morning on his sedation holiday, he is following commands. He indicates he is getting enough air and that his pain is controlled. Minimal secretions. Good cough. OBJECTIVE: PHYSICAL EXAMINATION: General: Mr. Dill is lying in bed synchronous with the ventilator. Vital signs: Temperature 98.5 with a T-max of 98.6, pulse 96, respiratory rate 28, blood pressure 99/53 with a map of 68 by cough and 112/51 with a map of 71 by arterial line. SpO2 96% on FiO2 of 0.4. HEENT: Anicteric, pupils equal, round, and reactive to light and accommodation. Nares: Patent bilaterally with moist mucosa. Right NG tube in place. Neck: Supple, without apparent jugular venous distention (JVD), without thyromegaly or masses. Trachea is midline. Decreased subcutaneous air. Lymph: Without cervical or supraclavicular lymphadenopathy. Chest: Normal size. Bilateral chest tubes in place and left subclavian in place with dressing clean and dry. Decreased bilateral anterior subcutaneous emphysema. Lungs: Symmetric excursion, good air entry, no wheeze, rhonchi or crackle on tidal excursion. Normal I:E. No accessory muscle usage or retractions. Cardiovascular: Regular rate and rhythm with a normal S1, S2, no murmur, rub or gallop appreciated. Abdomen: No significant bowel sounds, central dressing clean and dry. Two YORDY tubes in place, there is also a gastrojejunostomy in place. There is a fistula with a collection bag on it with minimal output. Abdomen is soft and nondistended. Extremities: Warm and well perfused, without clubbing, cyanosis or significant edema. LABORATORY DATA: CBC from this morning showed a hemoglobin of 14.9, hematocrit of 44.1, platelet count 183,000, white blood cell count 10,300 with a differential of 68% neutrophils, 17% bands, 7% lymphocytes. Chemistries show a sodium of 142, potassium 4.3, chloride 105, bicarbonate 28, anion gap 9, BUN 38, creatinine 1.4, glucose 137, lactic acid 3.7, calcium 7.7, total bilirubin 1.5, AST 96, ALT 110, alkaline phosphatase 54. Total protein 5.1, albumin 2.5. I reviewed his chest x-rays, a report from earlier today, that x-ray showed normal appearing cardiac silhouette and pulmonary vascular shadows. There remains pneumomediastinum and extrathoracic air. No consolidated regions. Bilateral chest tubes in place as well as a left subclavian catheter. Minimal bibasilar atelectasis. ET tube appears approximately 1.5 cm above the chery. Yesterday' s input and output was 4400 in and 500 out making him positive 3900. Thus far today, 2340 in and 735 out making him positive 1605. Weight 107.8. Of the output, 485 was urine. Chest tubes show minimal output and no air leak. CVP 4. IMPRESSION: 1. Acute respiratory failure postoperatively. 2. Postoperative day #1 status post exploratory laparotomy with repair of duodenal ulcer. 3. Bullous emphysema. It is unknown whether he has chronic obstructive pulmonary disease (COPD). 4. Hypertension at baseline. 5. Coronary artery disease. 6. Tobacco usage, ongoing at the time of admission. 7. Deep venous thrombosis (DVT) prophylaxis in place with sequential compression devices (SCD), thromboembolic deterrent stockings (TEDS) and enoxaparin. 8. Stress ulcer prophylaxis in place with prothrombin time pump inhibitor. 9. Nutrition, n.p.o. RECOMMENDATIONS: 1. Will begin a weaning trial. At the bedside, I switched him to pressure support mode with pressure support of 8 and PEEP of 5 and he appears reasonably comfortable with a tidal volume in the 500s. 2. Discussed with Dr. Everett changing the chest tubes to water seal given that neither pneumothorax was thought to be secondary to the rupture in the visceral pleura. He is agreeable and will make that change. 3. Continue bronchodilators on a scheduled basis until we can clarify if he has any significant pulmonary symptoms. 4. We will go onto a weaning trial. 5. If Mr. Dill has difficulty with maintaining his blood pressure, would recommend fluid boluses as an initial intervention particularly given as his CVP is 4. ADDENDUM: Mr. Dill was placed on pressure support of 5 and PEEP of 5 for over 30 minutes. His rapid shallow breathing index on those settings was 48-53 which predicts success. He was able to increase his spontaneous tidal volume on request to over a liter and arterial blood gas after being on these settings for close to an hour was 7.45/37/86 with a measured saturation of 97% and a base excess of 1.4. He was then felt ready for extubation. He was successfully extubated. He is now on an aerosol mask and indicates he is getting enough air. CRITICAL CARE TIME: 40 minutes not including procedure time. ALBERTO
--- NOTE | 2017-08-16 12:35 | IPNPDOC ---
Subjective General Date/Time Seen The patient was seen on 08/16/17 at 09:31. Subject Chief Complaint/History The patient is a 66-year-old male admitted with a reason for visit of Perforated Duodenal Ulcer. Patient underwent exploratory laparotomy last night for perforated duodenal ulcer. Intraoperative findings included a fairly large heaped up duodenal perforation at the top of the duodenal bulb going towards the second portion of the duodenum and scarred in to the tissues underneath. He underwent pyloric exclusion. an omental patch was placed on top of the perforation and lateral duodenal ostomy was placed. A feeding jejunostomy was also placed. He remained intubated relatively stable overnight. Current Medications Current Medications Current Medications Acetaminophen (Tylenol Tab) 650 mg Q4HP PRN PO MILD PAIN or TEMP > 101; Start 08/15/17 at 23:15; Stop 09/14/17 at 23:14 Albuterol Sulfate (Proventil Neb) 2.5 mg Q2HP PRN NEB SHORTNESS OF BREATH; Start 08/16/17 at 00:00; Stop 09/15/17 at 00:00 Albuterol/ Ipratropium (Duoneb (Ipr 0.5mg/Alb 2.5mg)) 3 ml RQ4H NEB Last administered on 08/16/17 09:25; Start 08/16/17 at 00:00; Stop 09/15/17 at 00:00 Chlorhexidine Gluconate (Chlorhexidine Gluconate) SWAB/BRUSH ORAL CAVITY BID MT ; Start 08/16/17 at 09:00; Stop 09/15/17 at 08:59 Enoxaparin Sodium (Lovenox) 40 mg DAILY SC Last administered on 08/16/17 08:36 ; Start 08/16/17 at 09:00; Stop 08/21/17 at 08:59 Ertapenem 1 gm/ Sodium Chloride 50 ml @ 100 mls/hr Q24H IV ; Start 08/16/17 at 17:00; Stop 08/23/17 at 16:59 Fentanyl Citrate (Sublimaze) 25 mcg Q5MP PRN IV MODERATE PAIN (PS 4-7); Start 08/16/17 at 00:00; Stop 08/16/17 at 01:15; Status DC Home Med (Med Rec Complete!) ASDIRECTED XX ; Start 08/15/17 at 16:15; Stop 08/15/17 at 16:15; Status DC Lactated Ringer's 1,000 ml @ 100 mls/hr Q10H IV ; Start 08/16/17 at 00:00; Stop 08/16/17 at 01:15; Status DC Lactated Ringer's 1,000 ml @ 200 mls/hr Q5H IV Last administered on 08/16/17 04:39; Start 08/15/17 at 17:00; Stop 09/14/17 at 16:59 Magnesium Hydroxide (Milk Of Magnesia) 30 ml DAILYPRN PRN PO CONSTIPATION; Start 08/15/17 at 23:15; Stop 09/14/17 at 23:14 Metoprolol Tartrate (Lopressor) 25 mg BID PO Last administered on 08/16/17 08: 37; Start 08/15/17 at 21:00; Stop 09/14/17 at 20:59 Midazolam HCl (Versed) 2 mg Q15MP PRN IV AGITATION Last administered on 05:04; Start 08/16/17 at 00:00; Stop 08/23/17 at 00:00 Morphine Sulfate (Morphine Sulfate Inj) 2 mg Q2HP PRN IV PAIN Last administered on 08/16/17 08:36; Start 08/16/17 at 00:00; Stop 08/23/17 at 00: 00 Morphine Sulfate (Morphine Sulfate Inj) 4 mg Q1H PRN IV SEVERE PAIN (PS 8-10); Start 08/15/17 at 23:15; Stop 08/15/17 at 23:53; Status DC Ondansetron HCl (ZOFRAN INJection) 4 mg Q4HP PRN IV NAUSEA OR VOMITING; Start 08/16/17 at 00:00; Stop 08/16/17 at 01:15; Status DC Ondansetron HCl (ZOFRAN INJection) 4 mg Q6HP PRN IV NAUSEA OR VOMITING; Start 08/15/17 at 23:15; Stop 09/14/17 at 23:14 Pantoprazole Sodium (Protonix) 40 mg BID IV Last administered on 08/16/17 08: 36; Start 08/16/17 at 09:00; Stop 09/15/17 at 08:59 Propofol 1000 mg/ IV Miscellaneous Supplies 100 ml @ 6.68 mls/hr [id number] IV Last administered on 08/16/17t 05:22; Start 08/15/17 at 23:47; Stop 08/22/17 at 23:46 Allergies Coded Allergies: Penicillins (Unverified Allergy, Unknown, 04/25/17) Objective Physical Examination Examination GENERAL APPEARANCE: Patient intubated, sedated with small spontaneous movements. SKIN: Warm and dry, no jaundice. HEENT: Intubated, NG tube in place. NECK: Subcutaneous air present in both neck, stable to mildly improved short round neck would be difficult to see any jugular venous distention. LUNGS: Clear to auscultation bilaterally. No wheezing appreciated. HEART: No chest wall abnormalities. Regular rate and rhythm. Left subclavian catheter in place. CVP is 4. ABDOMEN: Abdomen is moderately obese, soft, rounded and protuberant. Upper midline incision, clean, dry and intact. Patient has multiple drains. On the left side he has a feeding jejunostomy that is capped. He has a Oziel-Gilbert drain underneath the gastrojejunostomy which is draining serosanguineous light pink fluid. On the right side he has red rubber catheter which is lateral duodenostomy tube connected to a bag with a small amount of thin brownish fluid. He has a YORDY drain close to the duodenal perforation which is draining thick brownish/maroon colored fluid. EXTREMITIES: Mild, beginning edema. Vital Signs Vital Signs Date Time Temp Pulse Resp B/P (MAP) Pulse Ox O2 Delivery O2 Flow Rate FiO2 08/16/17 09:26 96 21 97 35 08/16/17 08:37 109/62 08/16/17 08:36 Ventilator 08/16/17 04:00 98.6 08/15/17 17:07 2.0 Laboratory Data Labs 24H Laboratory Tests 2 08/15/17 13:16: Immature Granulocyte % (Auto) 0.8H, White Blood Count 20.2H, Red Blood Count 5.40, Hemoglobin 17.8, Hematocrit 50.5, Mean Corpuscular Volume 93.5, Mean Corpuscular Hemoglobin 33.0, Mean Corpuscular Hemoglobin Concent 35.2, Red Cell Distribution Width 13.6, Platelet Count 261, Neutrophils (%) (Auto) 90.2H, Lymphocytes (%) (Auto) 3.8L, Monocytes (%) (Auto) 5.1H, Eosinophils (%) (Auto) 0.0, Basophils (%) (Auto) 0.1, Neutrophils # (Auto) 18.2H, Lymphocytes # (Auto) 0.8L, Monocytes # (Auto) 1.0H, Eosinophils # (Auto) 0.0, Basophils # (Auto) 0.0 , Immature Granulocyte # (Auto) 0.2H, Nucleated Red Blood Cells % (auto) 0.0, Anion Gap 13, Glomerular Filtration Rate 59.5, Blood Urea Nitrogen 39H, Creatinine 1.29, Sodium Level 140, Potassium Level 3.9, Chloride Level 103, Carbon Dioxide Level 24, Calcium Level 9.3, Aspartate Amino Transf (AST/SGOT) 35 , Alanine Aminotransferase (ALT/SGPT) 65, Total Creatine Kinase 245, Alkaline Phosphatase 87, Total Bilirubin 1.0, Direct Bilirubin 0.3H, Total Protein 7.6, Albumin 4.2, Creatine Kinase MB 2.3, Creatine Kinase MB Relative Index 0.93, Troponin I < 0.02, Albumin/Globulin Ratio 1.24, Lipase 321 08/15/17 23:38: Blood Gas Bicarbonate Standard 22.1, Arterial Blood pH 7.322L, Arterial Blood Partial Pressure CO2 46.3H, Arterial Blood Partial Pressure O2 112.6H, Arterial Blood Total CO2 24.8, Arterial Blood HCO3 23.4, Arterial Blood Base Excess -2.9L , Arterial Blood Oxygen Saturation 98.2 08/15/17 23:43: Nucleated Red Blood Cells % (auto) 0.0, Anion Gap 8, Glomerular Filtration Rate 50.4, Blood Urea Nitrogen 40H, Creatinine 1.49H, Sodium Level 141, Potassium Level 4.3, Chloride Level 107, Carbon Dioxide Level 26, Calcium Level 8.1L, Aspartate Amino Transf (AST/SGOT) 90H, Alanine Aminotransferase (ALT/SGPT) 102H , Alkaline Phosphatase 59, Total Bilirubin 1.2H, Total Protein 5.8#L, Albumin 2.6#L, Troponin I 0.02, Albumin/Globulin Ratio 0.81L, Neutrophils 75, Band Neutrophils 12H, Lymphocytes (Manual) 12L, Metamyelocytes 1H, Platelet Estimate NORMAL, Macrocytosis 1+, Lactic Acid Level 3.7*H 08/16/17 04:55: Nucleated Red Blood Cells % (auto) 0.0, Anion Gap 9, Glomerular Filtration Rate 55.1, Blood Urea Nitrogen 38H, Creatinine 1.38H, Sodium Level 142, Potassium Level 4.3, Chloride Level 105, Carbon Dioxide Level 28, Calcium Level 7.7L, Aspartate Amino Transf (AST/SGOT) 96H, Alanine Aminotransferase (ALT/SGPT) 110H , Alkaline Phosphatase 54, Total Bilirubin 1.5H, Total Protein 5.1L, Albumin 2.5L, Albumin/Globulin Ratio 0.96L, Neutrophils 68, Band Neutrophils 17H, Lymphocytes (Manual) 7L, Platelet Estimate NORMAL, Monocytes (Manual) 3, Eosinophils (Manual) 1, Basophils (Manual) 1, Atypical Lymphocytes 3, Red Blood Cell Morphology NORMAL 08/16/17 05:08: Lactic Acid Followup at 4 Hours 3.7*H CBC/BMP Laboratory Tests 08/15/17 13:16 Red Blood Count 5.40, Mean Corpuscular Volume 93.5, Mean Corpuscular Hemoglobin 33.0, Mean Corpuscular Hemoglobin Concent 35.2, Red Cell Distribution Width 13.6 , Neutrophils (%) (Auto) 90.2 H, Lymphocytes (%) (Auto) 3.8 L, Monocytes (%) ( Auto) 5.1 H, Eosinophils (%) (Auto) 0.0, Basophils (%) (Auto) 0.1, Neutrophils # (Auto) 18.2 H, Lymphocytes # (Auto) 0.8 L, Monocytes # (Auto) 1.0 H, Eosinophils # (Auto) 0.0, Basophils # (Auto) 0.0, Calcium Level 9.3, Aspartate Amino Transf (AST/SGOT) 35, Alanine Aminotransferase (ALT/SGPT) 65, Total Creatine Kinase 245, Alkaline Phosphatase 87, Total Bilirubin 1.0, Direct Bilirubin 0.3 H, Total Protein 7.6, Albumin 4.2 08/15/17 23:43 Red Blood Count 4.67, Mean Corpuscular Volume 96.8 H, Mean Corpuscular Hemoglobin 33.2 H, Mean Corpuscular Hemoglobin Concent 34.3, Red Cell Distribution Width 14.0, Calcium Level 8.1 L, Aspartate Amino Transf (AST/SGOT) 90 H, Alanine Aminotransferase (ALT/SGPT) 102 H, Alkaline Phosphatase 59, Total Bilirubin 1.2 H, Total Protein 5.8 #L, Albumin 2.6 #L 08/16/17 04:55 Red Blood Count 4.53, Mean Corpuscular Volume 97.4 H, Mean Corpuscular Hemoglobin 32.9, Mean Corpuscular Hemoglobin Concent 33.8, Red Cell Distribution Width 13.9, Calcium Level 7.7 L, Aspartate Amino Transf (AST/SGOT) 96 H, Alanine Aminotransferase (ALT/SGPT) 110 H, Alkaline Phosphatase 54, Total Bilirubin 1.5 H, Total Protein 5.1 L, Albumin 2.5 L Microbiology Microbiology 08/15/17 Body Fluid Culture, Received Pending 08/15/17 Anaerobic Culture, Received Pending Impression Perforated scarred duodenal ulcer (bulb toward 2nd portion of duodenum) Patient has a large friable duodenal bulb ulcer with a scarred in duodenum not amenable to resection or repair. Pyloric exclusion, lateral duodenostomy tube and a feeding jejunostomy tube was then placed. He remained stable overnight. He also had a large subcutaneous air in his chest and neck with resulting bilateral pneumothorax. Bilateral chest tubes has been placed in is expected not much air leak is seen. Certainly concerns about the duodenal perforation duodenal ulcer remains and we are currently diverging gastric contents away from the area with the pyloric exclusion and gastrojejunostomy. I expect he will be leaking still from the duodenal hole and my hope is that the lateral duodenostomy tube will create a controlled fistula eventually. So long as he remains stable and not septic, we could probably continue to treat him in this manner. we will place the chest tubes to water seal and we removed the chest tubes tomorrow. He will be weaned off from the ventilator today and hopefully be extubated. We will continue antibiotic treatment, Protonix IV twice a day. He remains in critical condition and will most likely have a prolonged hospital course. Plan / VTE VTE Prophylaxis Ordered?: Yes Plan / Urinary Catheter Reason for insertion/continuin: Critical Pt monitoring ORA SIMPSON MD Aug 16, 2017 09:32
[2017-08-16] MEDS: ERTAPENEM SODIUM 1 GM in NS MINI-BAG PLUS 50 ML IV SCH ×2 (16:27→17:54)
--- NOTE | 2017-08-16 20:16 | CCN ---
DATE OF VISIT: 08/15/[address] Everett to emergently evaluate Mr. Dill for acute respiratory failure postoperatively. NOTE: Mr. 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 He had recently broken up with his girlfriend and for an unknown reason he has taken 32 nitroglycerin over the past three days. His evaluation showed him to have a perforated duodenal ulcer, pneumomediastinum with significant subcutaneous air and bilateral pneumothoraces. He was taken to the operating room emergently where he had bilateral chest tubes placed and underwent an exploratory laparotomy where he had an omental patch repair of the duodenal perforation, pyloric exclusion, lateral duodenostomy, feeding jejunostomy and gastrojejunostomy was placed. During the surgery, he transiently required Koby-Synephrine up to a maximum of about 75 mcg. However; he was off vasopressor before the end of the case. He received 4400 mL of crystalloid. He had 350 mL of urine out with an estimated blood loss of 100. ALLERGIES: PENICILLINS do not know what his reaction is to those medications. MEDICATIONS ON ADMISSION: - aspirin 81 mg by mouth daily - atorvastatin 40 mg by mouth daily - vitamin D3 1000 units by mouth daily - cyclobenzaprine 10 mg by mouth daily as needed - isosorbide 30 mg by mouth daily - meloxicam 15 mg by mouth daily - metoprolol 25 mg by mouth twice a day - multivitamin one by mouth daily - nitroglycerin 0.4 mg lingual every 5 minutes as needed - omeprazole 40 mg by mouth daily OBJECTIVE: GENERAL: Mr. Dill is laying in bed sedated and in no acute distress. VITAL SIGNS: Temperature 98.5, pulse 86, respiratory rate 18, blood pressure 119/54 with a mean arterial pressure (MAP) of 68, SpO2 100% on an FiO2 of 0.5. HEENT: Anicteric, pupils pinpoint, nares patent bilaterally with right nasogastric (NG) tube in place. Oropharynx: Moist mucosa. Endotracheal tube (ET) in place. NECK: Supple without thyromegaly or masses. Trachea is midline. There is some subcutaneous air in his neck. CHEST: Normal shape. There is subcutaneous air over his chest, slightly more greater on the left. There is a left subclavian in place. There are chest tubes located on both the left and the right sides of the chest. No air leak noted in either chest tube. LUNGS: Symmetric excursion, good air entry on the right with decreased air entry on the left. Chest excursion appears symmetric. No wheeze, rhonchi or crackles on tidal excursion. Normal to mildly prolonged expiratory phase. No accessory muscle usage or retractions. CARDIOVASCULAR: Regular rate and rhythm with a normal S1, S2. No murmurs, rubs, gallop appreciated. ABDOMEN: Absent bowel sounds, there is a midline dressing that is clean and dry with two Oziel-Gilbert (YORDY) tubes. There is also a fistula tube on the right. There is a jejunostomy and gastrojejunostomy tube that can be seen on the left. There are two YORDY drains. EXTREMITIES: Mildly cool with good perfusion. No clubbing, cyanosis or edema. Palpable pedal pulses bilaterally. There is a left arterial line in place. LABORATORY DATA: CBC showed a hemoglobin of 17.8, hematocrit 50.5, platelet count 261,000, white blood cell count 20,200 with a differential of 90% neutrophils, 4 % lymphocytes, 5% monocytes. Chemistry: Sodium 140, potassium 3.9, chloride 103, bicarbonate 24, anion gap 13, BUN 39, creatinine 1.3, glucose 171, calcium 9.3, total bilirubin 1.0, direct bilirubin 0.3, AST 35, ALT 65, alkaline phosphatase 87, CK 245, CK-MB 2.3, troponin I less than 0.02, total protein 7.6, albumin 4.2 , lipase 321. I reviewed his CT pulmonary angiogram, as well as the report. CT scan showed likely normal appearing, perhaps slightly enlarged cardiac silhouette. There is extensive pneumomediastinum throughout the chest and extending up into the neck. There are also bilateral pneumothoraces. There is bullous emphysematous changes bilaterally with some subsegmental atelectasis. No evidence of pulmonary embolism. I reviewed the CT of the abdomen and pelvis, as well as the report and agree with the report that the findings are indicative of bowel perforation with pneumoperitoneum. There was also a small quantity of portal venous air visible in the liver and portal vein. I reviewed the report of the esophagram which showed no evidence of an esophageal disruption. I reviewed his chest x-ray after arriving in the postanesthesia care unit (PACU). That x-ray showed a borderline enlarged cardiac silhouette, normal pulmonary vascular shadows. There are bilateral chest tubes in place with no evidence of residual pneumothorax bilaterally. There is a right mainstem intubation. IMPRESSION: 1. Acute respiratory failure postoperatively leading to mechanical ventilation. 2. Postoperative day zero status post exploratory laparotomy with omental patch repair of duodenal perforation, pyloric exclusion, lateral duodenostomy, feeding tube, jejunostomy and gastrojejunostomy. 3. Bilateral pneumothoraces. These are likely secondary to fascial dissection of the pneumomediastinum rather than true lung rupture. 4. Pneumomediastinum. 5. Bullous emphysema. 6. Coronary artery disease. 7. Hypertension. 8. Tobacco usage ongoing at the time of admission. 9. Deep venous thrombosis (DVT) prophylaxis with sequential compression device (SCD) and thromboembolic deterrent stockings (TEDs). RECOMMENDATIONS: 1. Anticipate requirement from mechanical ventilation at least overnight. 2. Replacement on the lung protective strategy. He is 70 inches which makes his 6 mL tidal volume approximately 40. 3. Will start bronchodilators. 4. Will use propofol for sedation as long as he tolerates it. 5. Will check central venous pressure (CVP). 6. Mean arterial pressure (MAP) goal greater than 65. 7. Endotracheal tube was pulled back 2 cm with good breath sounds bilaterally. CRITICAL CARE TIME: 55 minutes not including procedure time. MTDD
[2017-08-17] VITALS (20 sets, daily range): BP systolic 97–127; BP diastolic 55–72; O2SAT 98–99
[2017-08-17] MEDS: MORPHINE 2 MG/ML 1ML SYRINGE IV PRN ×3 (00:26→06:42)
[2017-08-17] MEDS: LR 1,000 ML IV SCH ×4 (00:26→21:11)
[2017-08-17 05:53] LABS: MEAN CORPUSCULAR HEMOGLOBIN 32.8 pg (27.0-33.0); MEAN CORPUSCULAR HGB CONC 33.2 g/dl (32.0-36.5); PLATELET COUNT, AUTOMATED 133 10^3/uL (150-450); RED CELL DISTRIBUTION WIDTH 13.8 % (11.5-14.5); WHITE BLOOD COUNT 6.8 10^3/uL (4.0-10.0)
[2017-08-17 05:57] LABS: ADD MANUAL DIFFER YES; DIFF SLIDE NUMBER 48
[2017-08-17 06:06] LABS: ALBUMIN 2.1 GM/DL (3.2-5.2); ALBUMIN/GLOBULIN RATIO 0.88 (1.00-1.93); ALKALINE PHOSPHATASE 47 U/L (45-117); ALT/SGPT 100 U/L (12-78); ANION GAP 5 MEQ/L (8-16); AST/SGOT 79 U/L (15-37); BILIRUBIN,TOTAL 1.8 MG/DL (0.2-1.0); BLOOD UREA NITROGEN 23 MG/DL (7-18); CALCIUM LEVEL 7.5 MG/DL (8.8-10.2); CARBON DIOXIDE LEVEL 30 MEQ/L (21-32); CHLORIDE LEVEL 107 MEQ/L (98-107); CREATININE FOR GFR 0.75 MG/DL (0.70-1.30); GLOMERULAR FILTRATION RATE > 60.0 (>49); GLUCOSE, FASTING 76 MG/DL (80-110); POTASSIUM SERUM 3.9 MEQ/L (3.5-5.1); SODIUM LEVEL 142 MEQ/L (136-145); TOTAL PROTEIN 4.5 GM/DL (6.4-8.2)
[2017-08-17 06:43] LABS: BANDS 1 % (< 11); EOSINOPHILS 3 % (0-5); NUCLEATED RED BLOOD CELL 1 % (0-0)
[2017-08-17] MEDS ORDERED: NS 1,000 ML IV SCH (07:49)
--- NOTE | 2017-08-17 07:58 | REP ---
Portable chest, 06:39 a.m., single AP view, the patient upright: Comparison is 2016 at 06:37 a.m. There are bilateral thoracotomy tubes, unchanged. There is a nasogastric tube terminating satisfactorily in the upper abdomen on the left, unchanged. I suspect there is a surgical drainage tube in the upper abdomen. There are bibasilar infiltrates, unchanged. The mid and upper lung zones remain clear. Cardiac size is enlarged, unchanged. There is subcutaneous emphysema in the right infraclavicular and supraclavicular areas. Signed by Collin Weinstein MD 08/17/2017 07:50 A
[2017-08-17] MEDS ORDERED: EPIDURAL/PCA KEYS XX PRN (08:00)
[2017-08-17] MEDS ORDERED: ONDANSETRON 4MG/2ML VIAL (J2405) IV PRN (08:00)
[2017-08-17] MEDS ORDERED: diphenhydrAMINE INJ 50MG/ML VIAL (J1200) IV PRN (08:00)
[2017-08-17] MEDS ORDERED: NALBUPHINE HCL 10 MG/ML AMP (J2300) IV PRN (08:00)
[2017-08-17] MEDS ORDERED: NALOXONE INJ 0.4 MG/1 ML VIAL (J2310) IV PRN (08:00)
--- NOTE | 2017-08-17 08:03 | IPNPDOC ---
Subjective General Date/Time Seen The patient was seen on 08/17/17 at 07:59. Subject Chief Complaint/History The patient is a 66-year-old male admitted with a reason for visit of Perforated Duodenal Ulcer. He was extubated yesterday. He remains stable. Complains of pain at the incision site, mild pain to right upper and lower quadrant area otherwise comfortable. Current Medications Current Medications Current Medications Acetaminophen (Tylenol Tab) 650 mg Q4HP PRN PO MILD PAIN or TEMP > 101; Start 08/15/17 at 23:15; Stop 09/14/17 at 23:14 Albuterol Sulfate (Proventil Neb) 2.5 mg Q2HP PRN NEB SHORTNESS OF BREATH; Start 08/16/17 at 00:00; Stop 09/15/17 at 00:00 Albuterol/ Ipratropium (Duoneb (Ipr 0.5mg/Alb 2.5mg)) 3 ml RQ4H NEB Last administered on 08/16/17 09:25; Start 08/16/17 at 00:00; Stop 08/16/17 at 10:43 ; Status DC Albuterol/ Ipratropium (Duoneb (Ipr 0.5mg/Alb 2.5mg)) 3 ml RQID NEB Last administered on 08/16/17 20:22; Start 08/16/17 at 12:00; Stop 09/15/17 at 11:59 Chlorhexidine Gluconate (Chlorhexidine Gluconate) SWAB/BRUSH ORAL CAVITY BID MT ; Start 08/16/17 at 09:00; Stop 08/16/17 at 10:41; Status DC Diphenhydramine HCl (Benadryl) 12.5 mg Q4HP PRN IV ITCHING; Start 08/17/17 at 08:00; Stop 09/16/17 at 07:59 Enoxaparin Sodium (Lovenox) 40 mg DAILY SC Last administered on 08/16/17 08:36 ; Start 08/16/17 at 09:00; Stop 08/21/17 at 08:59 Ertapenem 1 gm/ Sodium Chloride 50 ml @ 100 mls/hr Q24H IV Last administered on 08/16/17 17:54; Start 08/16/17 at 17:00; Stop 08/23/17 at 16:59 Fentanyl Citrate (Sublimaze) 25 mcg Q5MP PRN IV MODERATE PAIN (PS 4-7); Start 08/16/17 at 00:00; Stop 08/16/17 at 01:15; Status DC Home Med (Med Rec Complete!) ASDIRECTED XX ; Start 08/15/17 at 16:15; Stop 08/15/17 at 16:15; Status DC Influenza Virus Vaccine (Fluzone High Dose) 0.5 ml ASDIRECTED IM ; Start at 11:15; Stop 09/15/17 at 11:14 Lactated Ringer's 1,000 ml @ 100 mls/hr Q10H IV Last administered on 05:41; Start 08/15/17 at 17:00; Stop 09/14/17 at 16:59 Lactated Ringer's 1,000 ml @ 100 mls/hr Q10H IV ; Start 08/16/17 at 00:00; Stop 08/16/17 at 01:15; Status DC Magnesium Hydroxide (Milk Of Magnesia) 30 ml DAILYPRN PRN PO CONSTIPATION; Start 08/15/17 at 23:15; Stop 09/14/17 at 23:14 Metoprolol Tartrate (Lopressor) 25 mg BID PO Last administered on 08/16/17 21: 31; Start 08/15/17 at 21:00; Stop 09/14/17 at 20:59 Midazolam HCl (Versed) 2 mg Q15MP PRN IV AGITATION Last administered on 05:04; Start 08/16/17 at 00:00; Stop 08/16/17 at 10:41; Status DC Morphine Sulfate (Morphine Sulfate In 0.9%Nacl Iv Bag) Concentration 1 mg/ml ASDIRECTED PRN IV SEE LABEL COMMENTS; Start 08/17/17 at 08:00; Stop 08/24/17 at 07:59 Morphine Sulfate (Morphine Sulfate Inj) 2 mg Q2HP PRN IV PAIN Last administered on 08/17/17 06:42; Start 08/16/17 at 00:00; Stop 08/17/17 at 07:53 ; Status DC Morphine Sulfate (Morphine Sulfate Inj) 4 mg Q1H PRN IV SEVERE PAIN (PS 8-10); Start 08/15/17 at 23:15; Stop 08/15/17 at 23:53; Status DC Nalbuphine HCl (Nubain) 2.5 mg Q6HP PRN IV PRURITIS; Start 08/17/17 at 08:00; Stop 08/24/17 at 07:59 Naloxone HCl (Narcan) 0.1 mg Q5MP PRN IV SEE LABEL COMMENTS; Start 08/17/17 at 08:00; Stop 09/16/17 at 07:59 Non-Formulary Medication (Epidural/AGILE JAVA DEVELOPER [place]) USE THIS ENTRY TO VEND ... Q1M PRN XX SEE LABEL COMMENTS; Start 08/17/17 at 08:00; Stop 09/16/17 at 07:59 Ondansetron HCl (ZOFRAN INJection) 4 mg Q4HP PRN IV NAUSEA OR VOMITING; Start 08/16/17 at 00:00; Stop 08/16/17 at 01:15; Status DC Ondansetron HCl (ZOFRAN INJection) 4 mg Q6HP PRN IV NAUSEA OR VOMITING; Start 08/15/17 at 23:15; Stop 09/14/17 at 23:14; Status Future Hold Ondansetron HCl (ZOFRAN INJection) 4 mg Q6HP PRN IV NAUSEA; Start 08/17/17 at 08:00; Stop 09/16/17 at 07:59 Pantoprazole Sodium (Protonix) 40 mg BID IV Last administered on 08/16/17 21: 31; Start 08/16/17 at 09:00; Stop 09/15/17 at 08:59 Pneumococcal Polyvalent Vaccine (Prevnar 13) 0.5 ml ASDIRECTED IM ; Start at 11:15; Stop 09/15/17 at 11:14 Propofol 1000 mg/ IV Miscellaneous Supplies 100 ml @ 6.68 mls/hr [id number] IV Last administered on 08/16/17 05:22; Start 08/15/17 at 23:47; Stop 08/16/17 at 10:41; Status DC Sodium Chloride 1,000 ml @ 15 mls/hr Q24H IV ; Start 08/17/17 at 07:49; Stop 08/17/17 at 07:55; Status DC Allergies Coded Allergies: Penicillins (Unverified Allergy, Unknown, 04/25/17) Objective Physical Examination Examination GENERAL APPEARANCE: Comfortable. SKIN: Warm and dry, no jaundice. HEENT: Normocephalic, atraumatic. [place] palpebral conjunctiva, anicteric sclerae. Lips and mucosa appear dry. NECK: Supple, no thyromegaly. No obvious jugular venous distention. LUNGS: Clear to auscultation bilaterally. No wheezing appreciated. HEART: No chest wall abnormalities. Regular rate and rhythm with no murmurs appreciated. ABDOMEN: Abdomen is moderately rounded, soft, minimally distended. Midline incision, clean, dry and intact. Hank are intact multiple drains including red rubber catheter that is now draining bilious fluid. This is the retrograde lateral internal duodenostomy. A YORDY drain on the right side that has small amount of light bilious drain. A left-sided YORDY drain which is light pink serosanguineous. Jejunostomy tube that is capped.. EXTREMITIES: Extremities have no deformities. No edema identified. Vital Signs Vital Signs Date Time Temp Pulse Resp B/P (MAP) Pulse Ox O2 Delivery O2 Flow Rate FiO2 08/17/17 06:55 21 08/17/17 06:42 97 Nasal Cannula 3.0 08/17/17 06:30 94 118/58 (78) 08/17/17 04:00 97.2 08/16/17 15:00 40 I&Os I&O- Last 24 Hours up to 6 AM 08/18/17 05:59 Intake Total 400 ml Output Total 693 ml Balance -293 ml Laboratory Data Labs 24H Laboratory Tests 2 08/16/17 10:25: Blood Gas Bicarbonate Standard 25.7, Arterial Blood pH 7.454H, Arterial Blood Partial Pressure CO2 36.5, Arterial Blood Partial Pressure O2 87.2, Arterial Blood Total CO2 26.1, Arterial Blood HCO3 25.0, Arterial Blood Base Excess 1.4, Arterial Blood Oxygen Saturation 97.0, Arterial Blood Gas Puncture Site LT RADIAL 08/17/17 05:35: Nucleated Red Blood Cells % (auto) 0.0, Neutrophils 66, Band Neutrophils 1, Lymphocytes (Manual) 14L, Monocytes (Manual) 14H, Eosinophils (Manual) 3, Nucleated Red Blood Cells 1H, Atypical Lymphocytes 2, Platelet Estimate DECREASED, Red Blood Cell Morphology NORMAL, Anion Gap 5L, Glomerular Filtration Rate > 60.0, Blood Urea Nitrogen 23H, Creatinine 0.75, Sodium Level 142, Potassium Level 3.9, Chloride Level 107, Carbon Dioxide Level 30, Calcium Level 7.5L, Aspartate Amino Transf (AST/SGOT) 79H, Alanine Aminotransferase (ALT /SGPT) 100H, Alkaline Phosphatase 47, Total Bilirubin 1.8H, Total Protein 4.5L, Albumin 2.1L, Albumin/Globulin Ratio 0.88L CBC/BMP Laboratory Tests 08/17/17 05:35 Red Blood Count 3.81 L, Mean Corpuscular Volume 99.0 H, Mean Corpuscular Hemoglobin 32.8, Mean Corpuscular Hemoglobin Concent 33.2, Red Cell Distribution Width 13.8, Calcium Level 7.5 L, Aspartate Amino Transf (AST/SGOT) 79 H, Alanine Aminotransferase (ALT/SGPT) 100 H, Alkaline Phosphatase 47, Total Bilirubin 1.8 H, Total Protein 4.5 L, Albumin 2.1 L Microbiology Microbiology 08/15/17 Body Fluid Culture, Received Pending 08/15/17 Anaerobic Culture, Received Pending Impression Perforated scarred duodenal ulcer (bulb toward 2nd portion of duodenum) POD2 Exploratory Laparotomy, Omental patch closure of perforation, lateral internal duodenostomy, Pyloric Exclusion, Feeding jejunostomy Bilateral Chest Tube placement for bilateral pneumothorax L Subclavian TLC placement Patient has a large friable duodenal bulb ulcer with a scarred in duodenum not amenable to resection or repair. Pyloric exclusion, lateral duodenostomy tube and a feeding jejunostomy tube was then placed. He remained stable overnight. He also had a large subcutaneous air in his chest and neck with resulting bilateral pneumothorax. Bilateral chest tubes has been placed in is expected not much air leak is seen. Most of the drainage over the right side with a duodenal perforation is coming out of the lateral internal duodenal ostomy and only a small amount of maroon colored fluid from the Oziel-Gilbert drain. Plans 1. We will provide him with morphine AGILE JAVA DEVELOPER for pain control 2. We will remove the chest tubes 3. Incentive spirometer, came out of bed 4. He'll start using the feeding jejunostomy. Continue with suction off the stomach through the NG tube 5. Lovenox for DVT prophylaxis 6. Continue with Invanz 1 g daily. Peritoneal fluid Cultures are still pending 7. We'll start coming down on the IV fluid but he probably still is on the dry side. His hemoconcentration have resolved. Plan / VTE VTE Prophylaxis Ordered?: Yes Plan / Urinary Catheter Reason for insertion/continuin: Critical Pt monitoring ORA SIMPSON MD Aug 17, 2017 08:03
[2017-08-17] MEDS: IPRATROPIUM 0.5MG/ALBUTEROL 2.5MG INH SOL UD 3ML (DUONEB)(J7620) NEB SCH ×4 (08:17→19:42)
[2017-08-17] MEDS: PANTOPRAZOLE 40MG INJ (PROTONIX) (C9113) IV SCH ×2 (08:31→21:10)
[2017-08-17] MEDS: METOPROLOL TART 25 MG TABLET PO SCH ×2 (08:31→21:10)
[2017-08-17] MEDS: MORPHINE 1MG/ML IN 0.9% NACL 100ML IV BAG IV PRN (08:32)
[2017-08-17] MEDS: ENOXAPARIN 40 MG/0.4 ML SYRINGE (J1650) SC SCH (08:32)
--- NOTE | 2017-08-17 10:24 | CCN ---
CRITICAL CARE PROGRESS NOTE DATE OF VISIT: 08/17/2017 TIME OF VISIT: 0845 I attended Adilson Dill here in the intensive care. He remains extubated. He is on nasal cannula oxygen to maintain his saturation in the 90's. Currently 3 liters flow. T-max overnight 99 degrees, blood pressure 104 to 118 systolic, heart rate 80's to 90's. Respiratory rate generally 18 to 20 without accessory muscle use. He has bilateral chest tubes in place. No air leak in either tube. Chest x-ray is reviewed. Chest tubes are in place. Both lungs are expanded to the chest wall. Persistent subcutaneous emphysema is noted. Medication list has been reviewed. Most recent laboratory show a white blood cell count down to 6.8, hemoglobin 12.5, platelet count 133,000, 66% segmented neutrophils, 1% bands, sodium 142, potassium 3.9, chloride 170, CO2 30, BUN 23, creatinine 0.75, bilirubin mildly elevated at 1.8, AST and ALT 79 and 100 respectively. Albumin 2.1. On exam he is awake, alert, and appropriate. He is complaining mainly of right lower quadrant pain. He was just started on a ASSISTANT LABORATORY DIRECTOR pump for pain control. The remainder of his exam shows his pupils reactive. Sclerae clear. Nasal cannula oxygen placed. He has got an NG tube in place as well. Membranes are moist. Trachea is in the midline. Chest shows bilateral chest tubes. Expansion is symmetric. There is some basilar crackles dependently. Diffuse subcutaneous emphysema/crepitus is noted throughout the torso. Cardiac exam is generally regular. Peripheral pulses are palpable, trace edema is noted dependently. Abdomen shows his dressings and drains in place as well as his feeding tube. He is tender to palpation throughout, but does have active bowel sounds. Extremities without cyanosis or clubbing. Neurologically he is awake, alert, and appropriate. Psych normal mood and affect. IMPRESSION: 1. Hypoxic respiratory failure. 2. Bilateral pneumothoraces secondary to migration of air without compromise of the visceral pleura. 3. Status post laparotomy and repair of duodenal perforation. At this point I am in agreement with the plans for removal of his chest tubes today. He remains off mechanical ventilatory support and there is no obvious visceral pleural source for his pneumothoraces as this is all migration of air from outside the chest essentially. Pain control is being aggressively managed by the primary service. He is on supplement nutrition intravenously. I see there are plans to mobilize him today as well with getting out of bed and I think this is an excellent idea. I am in agreement with his current antimicrobials. Pulmonary toilet is in place. We will proceed as outlined above. Further recommendations will be made in the progress records as new information becomes available. ALBERTO
[2017-08-17] MEDS: ERTAPENEM SODIUM 1 GM in NS MINI-BAG PLUS 50 ML IV SCH (18:18)
[2017-08-18] VITALS (13 sets, daily range): BP systolic 92–127; BP diastolic 53–62
[2017-08-18] MEDS: IPRATROPIUM 0.5MG/ALBUTEROL 2.5MG INH SOL UD 3ML (DUONEB)(J7620) NEB SCH ×4 (04:58→19:10)
[2017-08-18 05:39] LABS: MEAN CORPUSCULAR HEMOGLOBIN 32.7 pg (27.0-33.0); MEAN CORPUSCULAR HGB CONC 33.3 g/dl (32.0-36.5); MEAN CORPUSCULAR VOLUME 98.1 fl (80.0-96.0); PLATELET COUNT, AUTOMATED 128 10^3/uL (150-450); RED CELL DISTRIBUTION WIDTH 13.8 % (11.5-14.5); WHITE BLOOD COUNT 6.6 10^3/uL (4.0-10.0)
[2017-08-18 05:40] LABS: ADD MANUAL DIFFER YES; DIFF SLIDE NUMBER 33
[2017-08-18 06:19] LABS: ALKALINE PHOSPHATASE 52 U/L (45-117); ALT/SGPT 103 U/L (12-78); ANION GAP 7 MEQ/L (8-16); AST/SGOT 64 U/L (15-37); BILIRUBIN,TOTAL 2.7 MG/DL (0.2-1.0); BLOOD UREA NITROGEN 20 MG/DL (7-18); CALCIUM LEVEL 7.4 MG/DL (8.8-10.2); CARBON DIOXIDE LEVEL 28 MEQ/L (21-32); CHLORIDE LEVEL 105 MEQ/L (98-107); CREATININE FOR GFR 0.67 MG/DL (0.70-1.30); GLOMERULAR FILTRATION RATE > 60.0 (>49); GLUCOSE, FASTING 93 MG/DL (80-110); POTASSIUM SERUM 3.7 MEQ/L (3.5-5.1); SODIUM LEVEL 140 MEQ/L (136-145); TOTAL PROTEIN 4.5 GM/DL (6.4-8.2)
[2017-08-18 07:12] LABS: BANDS 2 % (< 11); BASOPHILS 1 % (0-4); EOSINOPHILS 2 % (0-5)
[2017-08-18] MEDS: PANTOPRAZOLE 40MG INJ (PROTONIX) (C9113) IV SCH ×2 (08:25→20:18)
[2017-08-18] MEDS: ENOXAPARIN 40 MG/0.4 ML SYRINGE (J1650) SC SCH (08:25)
[2017-08-18] MEDS: METOPROLOL TART 25 MG TABLET PO SCH ×2 (08:26→20:18)
--- NOTE | 2017-08-18 09:27 | REP ---
REASON: Intubation. COMPARISON: Yesterday. The technique utilized in obtaining the radiograph has magnified the cardiac silhouette and accentuated the interstitial markings. The nasogastric tube is unchanged. There are bibasilar opacities status quo. The right side thoracotomy tube has been removed. There is no evidence of an pneumothorax. The cardiomediastinal silhouette is unchanged. The osseous structures appear stable and intact. IMPRESSION: Removal of the right thoracotomy tube, otherwise no significant change from the prior exam. Signed by Abrahan Lopez DO 08/18/2017 09:39 A
[2017-08-18 10:24] LABS: BILIRUBIN,DIRECT 2.1 MG/DL (0.0-0.2)
[2017-08-18] MEDS: LR 1,000 ML IV SCH ×2 (10:53→20:31)
[2017-08-18] MEDS: ERTAPENEM SODIUM 1 GM in NS MINI-BAG PLUS 50 ML IV SCH (16:31)
[2017-08-18] MEDS: MORPHINE 1MG/ML IN 0.9% NACL 100ML IV BAG IV PRN (18:52)
[2017-08-19] VITALS (8 sets, daily range): BP systolic 108–145; BP diastolic 66–81
[2017-08-19] MEDS: LR 1,000 ML IV SCH ×3 (06:17→22:23)
[2017-08-19 06:29] LABS: BASO % 0.5 % (0.0-1.0); EOS # 0.2 10^3/uL (0.0-0.50); EOS % 3.9 % (0.0-3.0); IMMATURE GRANULOCYTE % 0.8 % (0-0); LYMPH % 16.8 % (24.0-44.0); MEAN CORPUSCULAR HEMOGLOBIN 32.6 pg (27.0-33.0); MEAN CORPUSCULAR HGB CONC 34.1 g/dl (32.0-36.5); MEAN CORPUSCULAR VOLUME 95.6 fl (80.0-96.0); MONO # 0.6 10^3/uL (0.0-0.8); MONO % 10.2 % (0.0-5.0); NEUTROPHILS # 4.2 10^3/uL (1.8-7.7); NEUTROPHILS % 67.8 % (36.0-66.0); PLATELET COUNT, AUTOMATED 144 10^3/uL (150-450); RED CELL DISTRIBUTION WIDTH 13.4 % (11.5-14.5); WHITE BLOOD COUNT 6.2 10^3/uL (4.0-10.0)
[2017-08-19 06:31] LABS: ADD MANUAL DIFFER NO; DIFF SLIDE NUMBER 25
[2017-08-19 06:53] LABS: ALBUMIN 1.9 GM/DL (3.2-5.2); ALKALINE PHOSPHATASE 61 U/L (45-117); ALT/SGPT 90 U/L (12-78); ANION GAP 5 MEQ/L (8-16); AST/SGOT 51 U/L (15-37); BILIRUBIN,TOTAL 2.4 MG/DL (0.2-1.0); BLOOD UREA NITROGEN 18 MG/DL (7-18); CALCIUM LEVEL 7.7 MG/DL (8.8-10.2); CARBON DIOXIDE LEVEL 28 MEQ/L (21-32); CHLORIDE LEVEL 105 MEQ/L (98-107); CREATININE FOR GFR 0.63 MG/DL (0.70-1.30); GLOMERULAR FILTRATION RATE > 60.0 (>49); GLUCOSE, FASTING 110 MG/DL (80-110); POTASSIUM SERUM 3.7 MEQ/L (3.5-5.1); SODIUM LEVEL 138 MEQ/L (136-145); TOTAL PROTEIN 4.6 GM/DL (6.4-8.2)
[2017-08-19] MEDS: IPRATROPIUM 0.5MG/ALBUTEROL 2.5MG INH SOL UD 3ML (DUONEB)(J7620) NEB SCH ×4 (07:19→19:22)
[2017-08-19] MEDS: PANTOPRAZOLE 40MG INJ (PROTONIX) (C9113) IV SCH ×2 (08:43→20:19)
[2017-08-19] MEDS: METOPROLOL TART 25 MG TABLET PO SCH ×2 (08:43→20:22)
[2017-08-19] MEDS: ENOXAPARIN 40 MG/0.4 ML SYRINGE (J1650) SC SCH (08:43)
[2017-08-19] MEDS ORDERED: CYCLOBENZAPRINE 10 MG TAB PO PRN (09:30)
[2017-08-19] MEDS: MULTIVITAMINS/MINERALS THERAP 1 TAB PO SCH (10:03)
[2017-08-19] MEDS: VITAMIN D 1,000 INTERNATIONAL UNITS TABLET PO SCH (10:04)
[2017-08-19] MEDS: ISOSORBIDE MON. (IMDUR) 30 MG XR TAB PO SCH (10:04)
--- NOTE | 2017-08-19 11:10 | IPNPDOC ---
Subjective General Date/Time Seen The patient was seen on 08/19/17 at 09:01. Subject Chief Complaint/History The patient is a 66-year-old male admitted with a reason for visit of Perforated Duodenal Ulcer. He continues to do well. He is still having significant pain over the right lower quadrant area. No febrile episodes reported. He was able to get out of bed. Were able to get up to 60 mL's per hour on the tube feedings. He is on clears. He denies nausea. Current Medications Current Medications Current Medications Acetaminophen (Tylenol Tab) 650 mg Q4HP PRN PO MILD PAIN or TEMP > 101; Start 08/15/17 at 23:15; Stop 09/14/17 at 23:14 Albuterol Sulfate (Proventil Neb) 2.5 mg Q2HP PRN NEB SHORTNESS OF BREATH; Start 08/16/17 at 00:00; Stop 09/15/17 at 00:00 Albuterol/ Ipratropium (Duoneb (Ipr 0.5mg/Alb 2.5mg)) 3 ml RQ4H NEB Last administered on 08/16/17 09:25; Start 08/16/17 at 00:00; Stop 08/16/17 at 10:43 ; Status DC Albuterol/ Ipratropium (Duoneb (Ipr 0.5mg/Alb 2.5mg)) 3 ml RQID NEB Last administered on 08/19/17 07:19; Start 08/16/17 at 12:00; Stop 09/15/17 at 11:59 Atorvastatin Calcium (Lipitor) 40 mg QHS PO ; Start 08/19/17 at 21:00; Stop 09/18/17 at 20:59 Chlorhexidine Gluconate (Chlorhexidine Gluconate) SWAB/BRUSH ORAL CAVITY BID MT ; Start 08/16/17 at 09:00; Stop 08/16/17 at 10:41; Status DC Cyclobenzaprine HCl (Flexeril) 10 mg DAILY PRN PO MUSCLE SPASMS; Start at 09:30; Stop 09/18/17 at 09:29 Diphenhydramine HCl (Benadryl) 12.5 mg Q4HP PRN IV ITCHING; Start 08/17/17 at 08:00; Stop 09/16/17 at 07:59 Enoxaparin Sodium (Lovenox) 40 mg DAILY SC Last administered on 08/19/17 08:43 ; Start 08/16/17 at 09:00; Stop 08/21/17 at 08:59 Ertapenem 1 gm/ Sodium Chloride 50 ml @ 100 mls/hr Q24H IV Last administered on 08/18/17 16:31; Start 08/16/17 at 17:00; Stop 08/23/17 at 16:59 Fentanyl Citrate (Sublimaze) 25 mcg Q5MP PRN IV MODERATE PAIN (PS 4-7); Start 08/16/17 at 00:00; Stop 08/16/17 at 01:15; Status DC Home Med (Med Rec Complete!) ASDIRECTED XX ; Start 08/15/17 at 16:15; Stop 08/15/17 at 16:15; Status DC Influenza Virus Vaccine (Fluzone High Dose) 0.5 ml ASDIRECTED IM Last administered on 08/19/17 10:15; Start 08/16/17 at 11:15; Stop 09/15/17 at 11:14 Isosorbide Mononitrate (Imdur) 30 mg DAILY PO Last administered on 08/19/17 10 :04; Start 08/19/17 at 09:00; Stop 09/18/17 at 08:59 Lactated Ringer's 1,000 ml @ 100 mls/hr Q10H IV Last administered on 06:17; Start 08/15/17 at 17:00; Stop 09/14/17 at 16:59 Lactated Ringer's 1,000 ml @ 100 mls/hr Q10H IV ; Start 08/16/17 at 00:00; Stop 08/16/17 at 01:15; Status DC Magnesium Hydroxide (Milk Of Magnesia) 30 ml DAILYPRN PRN PO CONSTIPATION; Start 08/15/17 at 23:15; Stop 09/14/17 at 23:14 Metoprolol Tartrate (Lopressor) 25 mg BID PO Last administered on 08/19/17 08: 43; Start 08/15/17 at 21:00; Stop 09/14/17 at 20:59 Midazolam HCl (Versed) 2 mg Q15MP PRN IV AGITATION Last administered on 05:04; Start 08/16/17 at 00:00; Stop 08/16/17 at 10:41; Status DC Morphine Sulfate (Morphine Sulfate In 0.9%Nacl Iv Bag) Concentration 1 mg/ml ASDIRECTED PRN IV SEE LABEL COMMENTS Last administered on 08/18/17 18:52; Start 08/17/17 at 08:00; Stop 08/24/17 at 07:59 Morphine Sulfate (Morphine Sulfate Inj) 2 mg Q2HP PRN IV PAIN Last administered on 08/17/17 06:42; Start 08/16/17 at 00:00; Stop 08/17/17 at 07:53 ; Status DC Morphine Sulfate (Morphine Sulfate Inj) 4 mg Q1H PRN IV SEVERE PAIN (PS 8-10); Start 08/15/17 at 23:15; Stop 08/15/17 at 23:53; Status DC Multivitamins (Theragram-M) 1 tab DAILY PO Last administered on 08/19/17 10:03 ; Start 08/19/17 at 09:00; Stop 09/18/17 at 08:59 Nalbuphine HCl (Nubain) 2.5 mg Q6HP PRN IV PRURITIS; Start 08/17/17 at 08:00; Stop 08/24/17 at 07:59 Naloxone HCl (Narcan) 0.1 mg Q5MP PRN IV SEE LABEL COMMENTS; Start 08/17/17 at 08:00; Stop 09/16/17 at 07:59 Nitroglycerin (Nitrostat (1/ 150)) 0.4 mg Q5MP PRN SL CHEST PAIN; Start at 09:30; Stop 09/18/17 at 09:29 Non-Formulary Medication (Epidural/COKE STILL CLEANER [place]) USE THIS ENTRY TO VEND ... Q1M PRN XX SEE LABEL COMMENTS; Start 08/17/17 at 08:00; Stop 09/16/17 at 07:59 Ondansetron HCl (ZOFRAN INJection) 4 mg Q4HP PRN IV NAUSEA OR VOMITING; Start 08/16/17 at 00:00; Stop 08/16/17 at 01:15; Status DC Ondansetron HCl (ZOFRAN INJection) 4 mg Q6HP PRN IV NAUSEA OR VOMITING; Start 08/15/17 at 23:15; Stop 09/14/17 at 23:14; Status Future Hold Ondansetron HCl (ZOFRAN INJection) 4 mg Q6HP PRN IV NAUSEA; Start 08/17/17 at 08:00; Stop 09/16/17 at 07:59 Pantoprazole Sodium (Protonix) 40 mg BID IV Last administered on 08/19/17 08: 43; Start 08/16/17 at 09:00; Stop 09/15/17 at 08:59 Pneumococcal Polyvalent Vaccine (Prevnar 13) 0.5 ml ASDIRECTED IM Last administered on 08/19/17 10:16; Start 08/16/17 at 11:15; Stop 09/15/17 at 11:14 Propofol 1000 mg/ IV Miscellaneous Supplies 100 ml @ 6.68 mls/hr [id number] IV Last administered on 08/16/17 05:22; Start 08/15/17 at 23:47; Stop 08/16/17 at 10:41; Status DC Sodium Chloride 1,000 ml @ 15 mls/hr Q24H IV ; Start 08/17/17 at 07:49; Stop 08/17/17 at 07:55; Status DC Vitamin D (Vitamin D) 1,000 units DAILY PO Last administered on 08/19/17 10:04 ; Start 08/19/17 at 09:00; Stop 09/18/17 at 08:59 Allergies Coded Allergies: Penicillins (Unverified Allergy, Unknown, 04/25/17) Objective Physical Examination Examination GENERAL APPEARANCE: Overall appears comfortable awake, alert, oriented. SKIN: Warm and moist. HEENT: Normocephalic, atraumatic. [place] palpebral conjunctiva, anicteric sclerae. Lips and mucosa appear moist. NECK: Supple, no thyromegaly. No obvious jugular venous distention. LUNGS: Clear to auscultation bilaterally. No wheezing appreciated. HEART: No chest wall abnormalities. Regular rate and rhythm with no murmurs appreciated. ABDOMEN: Abdomen is round, soft, minimally distended. Active bowel sounds. Right -sided drains included a YORDY drain with small amount of bile-stained fluid. Red rubber catheter lateral to the jejunostomy tube with bile in the bag (expected) left-sided YORDY drain with small amount of serosanguineous, light pink fluid. Jejunostomy tube. The tube feedings. Midline incision healing well, clean, dry, intact. EXTREMITIES: Extremities have no deformities. Minimal edema . Vital Signs Vital Signs Date Time Temp Pulse Resp B/P (MAP) Pulse Ox O2 Delivery O2 Flow Rate FiO2 08/19/17 08:43 72 119/67 08/19/17 08:00 Nasal Cannula 1.0 08/19/17 08:00 98.6 20 94 08/16/17 15:00 40 I&Os I&O- Last 24 Hours up to 6 AM 08/20/17 06:00 Intake Total 470 ml Output Total 360 ml Balance 110 ml Right YORDY 30 ML's past 24 hours Duodenostomy tube 335 MLS Laboratory Data Labs 24H Laboratory Tests 2 08/19/17 06:17: Immature Granulocyte % (Auto) 0.8H, White Blood Count 6.2, Red Blood Count 3.65L , Hemoglobin 11.9L, Hematocrit 34.9L, Mean Corpuscular Volume 95.6, Mean Corpuscular Hemoglobin 32.6, Mean Corpuscular Hemoglobin Concent 34.1, Red Cell Distribution Width 13.4, Platelet Count 144L, Neutrophils (%) (Auto) 67.8H, Lymphocytes (%) (Auto) 16.8L, Monocytes (%) (Auto) 10.2H, Eosinophils (%) (Auto ) 3.9H, Basophils (%) (Auto) 0.5, Neutrophils # (Auto) 4.2, Lymphocytes # (Auto ) 1.0L, Monocytes # (Auto) 0.6, Eosinophils # (Auto) 0.2, Basophils # (Auto) 0.0 , Immature Granulocyte # (Auto) 0.1H, Nucleated Red Blood Cells % (auto) 0.0, Anion Gap 5L, Glomerular Filtration Rate > 60.0, Blood Urea Nitrogen 18, Creatinine 0.63L, Sodium Level 138, Potassium Level 3.7, Chloride Level 105, Carbon Dioxide Level 28, Calcium Level 7.7L, Aspartate Amino Transf (AST/SGOT) 51H, Alanine Aminotransferase (ALT/SGPT) 90H, Alkaline Phosphatase 61, Total Bilirubin 2.4H, Total Protein 4.6L, Albumin 1.9L, Albumin/Globulin Ratio 0.70L CBC/BMP Laboratory Tests 08/19/17 06:17 Red Blood Count 3.65 L, Mean Corpuscular Volume 95.6, Mean Corpuscular Hemoglobin 32.6, Mean Corpuscular Hemoglobin Concent 34.1, Red Cell Distribution Width 13.4, Neutrophils (%) (Auto) 67.8 H, Lymphocytes (%) (Auto) 16.8 L, Monocytes (%) (Auto) 10.2 H, Eosinophils (%) (Auto) 3.9 H, Basophils (% ) (Auto) 0.5, Neutrophils # (Auto) 4.2, Lymphocytes # (Auto) 1.0 L, Monocytes # (Auto) 0.6, Eosinophils # (Auto) 0.2, Basophils # (Auto) 0.0, Calcium Level 7.7 L, Aspartate Amino Transf (AST/SGOT) 51 H, Alanine Aminotransferase (ALT/SGPT) 90 H, Alkaline Phosphatase 61, Total Bilirubin 2.4 H, Total Protein 4.6 L, Albumin 1.9 L Microbiology Microbiology 08/15/17 Body Fluid Culture - Final, Complete 08/15/17 Anaerobic Culture - Final, Complete Impression Perforated scarred duodenal ulcer (bulb toward 2nd portion of duodenum) POD2 Exploratory Laparotomy, Omental patch closure of perforation, lateral internal duodenostomy, Pyloric Exclusion, Feeding jejunostomy Bilateral Chest Tube placement for bilateral pneumothorax L Subclavian TLC placement Patient has a large friable duodenal bulb ulcer with a scarred in duodenum not amenable to resection or repair. Pyloric exclusion, lateral duodenostomy tube and a feeding jejunostomy tube was then placed. He continues to do well with no ongoing signs of sepsis. He still complains of pain at about the right lower quadrant area. His duodenostomy tube is working. New today is small amount of bilious fluid in the Oziel-Gilbert drain next to the duodenal perforation. He is at 60 mL is an hour on his tube feedings and knees denying any nausea. Overall, this is what I expect him to do in so long as we are continuing to control the leakage from the duodenal perforation, I think he will do okay. We will continue to use a jejunostomy feeding tube. Rhythm enteral nutrition. We will slowly introduce oral feeding and continue to monitor the drain output and the duodenostomy tube output Plans 1. Continue morphine COKE STILL CLEANER for pain control 2. Incentive spirometer, came out of bed 3. Jejunostomy feeding to 70 mL's/hr. KVO IVF. Continue with clears 4. Lovenox for DVT prophylaxis 5. Continue with Invanz 1 g daily. Peritoneal fluid Cultures are still pending 6. Transfer out of ICU to the floor. 7. Physical therapy for ambulation and rehabilitation 8. DC Davis Plan / VTE VTE Prophylaxis Ordered?: Yes Plan / Urinary Catheter Urinary Catheter: D/C [place] Reason for insertion/continuin: Critical Pt monitoring ORA SIMPSON MD Aug 19, 2017 11:10
--- NOTE | 2017-08-19 11:42 | REP ---
REASON: Followup. COMPARISON: 08/18/2017 The nasogastric tube has been removed. The left-sided subclavian central venous catheter is unchanged. The lung munguia are unchanged. Subtle bibasilar opacity status quo accentuated by technique. The technique utilized in obtaining the radiograph has magnified the cardiac silhouette and accentuated the interstitial markings. No new abnormal opacities. IMPRESSION: As above. Signed by Abrahan Lopez DO 08/19/2017 10:38 A
[2017-08-19] MEDS: ERTAPENEM SODIUM 1 GM in NS MINI-BAG PLUS 50 ML IV SCH (16:53)
[2017-08-19] MEDS: ATORVASTATIN 20 MG TAB PO SCH (20:19)
[2017-08-20 02:00] VITALS: BP 130/85
[2017-08-20 06:00] VITALS: BP 144/74
[2017-08-20 06:42] LABS: BASO # 0.1 10^3/uL (0.0-0.2); BASO % 0.7 % (0.0-1.0); EOS # 0.2 10^3/uL (0.0-0.50); EOS % 2.6 % (0.0-3.0); LYMPH # 0.8 10^3/uL (1.5-4.5); LYMPH % 10.8 % (24.0-44.0); MEAN CORPUSCULAR HEMOGLOBIN 32.2 pg (27.0-33.0); MEAN CORPUSCULAR VOLUME 94.7 fl (80.0-96.0); MONO # 0.9 10^3/uL (0.0-0.8); NEUTROPHILS # 5.5 10^3/uL (1.8-7.7); NEUTROPHILS % 71.9 % (36.0-66.0); PLATELET COUNT, AUTOMATED 168 10^3/uL (150-450); RED CELL DISTRIBUTION WIDTH 13.4 % (11.5-14.5); WHITE BLOOD COUNT 7.7 10^3/uL (4.0-10.0)
[2017-08-20 07:12] LABS: ALBUMIN/GLOBULIN RATIO 0.69 (1.00-1.93); ALKALINE PHOSPHATASE 72 U/L (45-117); ALT/SGPT 88 U/L (12-78); ANION GAP 8 MEQ/L (8-16); AST/SGOT 46 U/L (15-37); BILIRUBIN,TOTAL 2.1 MG/DL (0.2-1.0); BLOOD UREA NITROGEN 18 MG/DL (7-18); CALCIUM LEVEL 7.5 MG/DL (8.8-10.2); CARBON DIOXIDE LEVEL 26 MEQ/L (21-32); CHLORIDE LEVEL 103 MEQ/L (98-107); CREATININE FOR GFR 0.62 MG/DL (0.70-1.30); GLOMERULAR FILTRATION RATE > 60.0 (>49); GLUCOSE, FASTING 121 MG/DL (80-110); POTASSIUM SERUM 4.1 MEQ/L (3.5-5.1); SODIUM LEVEL 137 MEQ/L (136-145); TOTAL PROTEIN 4.9 GM/DL (6.4-8.2)
[2017-08-20] MEDS: IPRATROPIUM 0.5MG/ALBUTEROL 2.5MG INH SOL UD 3ML (DUONEB)(J7620) NEB SCH ×4 (07:15→19:23)
[2017-08-20] MEDS: MULTIVITAMINS/MINERALS THERAP 1 TAB PO SCH (08:52)
[2017-08-20] MEDS: PANTOPRAZOLE 40MG INJ (PROTONIX) (C9113) IV SCH ×2 (08:52→21:01)
[2017-08-20] MEDS: VITAMIN D 1,000 INTERNATIONAL UNITS TABLET PO SCH (08:53)
[2017-08-20] MEDS: METOPROLOL TART 25 MG TABLET PO SCH ×2 (08:53→21:02)
[2017-08-20] MEDS: LR 1,000 ML IV SCH (08:54)
[2017-08-20] MEDS: ENOXAPARIN 40 MG/0.4 ML SYRINGE (J1650) SC SCH (08:54)
[2017-08-20] MEDS: ISOSORBIDE MON. (IMDUR) 30 MG XR TAB PO SCH (08:54)
[2017-08-20 10:00] VITALS: BP 126/67
--- NOTE | 2017-08-20 11:35 | IPNPDOC ---
Subjective General Date/Time Seen The patient was seen on 08/20/17 at 11:32. Subject Chief Complaint/History The patient is a 66-year-old male admitted with a reason for visit of Perforated Duodenal Ulcer. Remained stable. 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 I reviewed the use a junk morphine EMPLOYEE BENEFITS MANAGER with his nurse and it doesn't seem like he is using that much. No bowel movements yet. His pain over the right lower abdomen is steady and improving mildly. Patient denies any nausea. Current Medications Current Medications Current Medications Acetaminophen (Tylenol Tab) 650 mg Q4HP PRN PO MILD PAIN or TEMP > 101; Start 08/15/17 at 23:15; Stop 09/14/17 at 23:14 Albuterol Sulfate (Proventil Neb) 2.5 mg Q2HP PRN NEB SHORTNESS OF BREATH; Start 08/16/17 at 00:00; Stop 09/15/17 at 00:00 Albuterol/ Ipratropium (Duoneb (Ipr 0.5mg/Alb 2.5mg)) 3 ml RQ4H NEB Last administered on 08/16/17 09:25; Start 08/16/17 at 00:00; Stop 08/16/17 at 10:43 ; Status DC Albuterol/ Ipratropium (Duoneb (Ipr 0.5mg/Alb 2.5mg)) 3 ml RQID NEB Last administered on 08/20/17 11:24; Start 08/16/17 at 12:00; Stop 09/15/17 at 11:59 Atorvastatin Calcium (Lipitor) 40 mg QHS PO Last administered on 08/19/17 20: 19; Start 08/19/17 at 21:00; Stop 09/18/17 at 20:59 Chlorhexidine Gluconate (Chlorhexidine Gluconate) SWAB/BRUSH ORAL CAVITY BID MT ; Start 08/16/17 at 09:00; Stop 08/16/17 at 10:41; Status DC Cyclobenzaprine HCl (Flexeril) 10 mg DAILY PRN PO MUSCLE SPASMS; Start at 09:30; Stop 09/18/17 at 09:29 Diphenhydramine HCl (Benadryl) 12.5 mg Q4HP PRN IV ITCHING; Start 08/17/17 at 08:00; Stop 09/16/17 at 07:59 Enoxaparin Sodium (Lovenox) 40 mg DAILY SC Last administered on 08/20/17 08:54 ; Start 08/16/17 at 09:00; Stop 08/21/17 at 08:59 Ertapenem 1 gm/ Sodium Chloride 50 ml @ 100 mls/hr Q24H IV Last administered on 08/19/17 16:53; Start 08/16/17 at 17:00; Stop 08/23/17 at 16:59 Fentanyl Citrate (Sublimaze) 25 mcg Q5MP PRN IV MODERATE PAIN (PS 4-7); Start 08/16/17 at 00:00; Stop 08/16/17 at 01:15; Status DC Home Med (Med Rec Complete!) ASDIRECTED XX ; Start 08/15/17 at 16:15; Stop 08/15/17 at 16:15; Status DC Influenza Virus Vaccine (Fluzone High Dose) 0.5 ml ASDIRECTED IM Last administered on 08/19/17 10:15; Start 08/16/17 at 11:15; Stop 08/19/17 at 14:14 ; Status DC Isosorbide Mononitrate (Imdur) 30 mg DAILY PO Last administered on 08/20/17 08 :54; Start 08/19/17 at 09:00; Stop 09/18/17 at 08:59 Lactated Ringer's 1,000 ml @ 100 mls/hr Q10H IV Last administered on 08:54; Start 08/15/17 at 17:00; Stop 09/14/17 at 16:59 Lactated Ringer's 1,000 ml @ 100 mls/hr Q10H IV ; Start 08/16/17 at 00:00; Stop 08/16/17 at 01:15; Status DC Magnesium Hydroxide (Milk Of Magnesia) 30 ml DAILYPRN PRN PO CONSTIPATION; Start 08/15/17 at 23:15; Stop 09/14/17 at 23:14 Metoprolol Tartrate (Lopressor) 25 mg BID PO Last administered on 08/20/17 08: 53; Start 08/15/17 at 21:00; Stop 09/14/17 at 20:59 Midazolam HCl (Versed) 2 mg Q15MP PRN IV AGITATION Last administered on 05:04; Start 08/16/17 at 00:00; Stop 08/16/17 at 10:41; Status DC Morphine Sulfate (Morphine Sulfate In 0.9%Nacl Iv Bag) Concentration 1 mg/ml ASDIRECTED PRN IV SEE LABEL COMMENTS Last administered on 08/18/17 18:52; Start 08/17/17 at 08:00; Stop 08/24/17 at 07:59 Morphine Sulfate (Morphine Sulfate Inj) 2 mg Q2HP PRN IV PAIN Last administered on 08/17/17 06:42; Start 08/16/17 at 00:00; Stop 08/17/17 at 07:53 ; Status DC Morphine Sulfate (Morphine Sulfate Inj) 4 mg Q1H PRN IV SEVERE PAIN (PS 8-10); Start 08/15/17 at 23:15; Stop 08/15/17 at 23:53; Status DC Multivitamins (Theragram-M) 1 tab DAILY PO Last administered on 08/20/17 08:52 ; Start 08/19/17 at 09:00; Stop 09/18/17 at 08:59 Nalbuphine HCl (Nubain) 2.5 mg Q6HP PRN IV PRURITIS; Start 08/17/17 at 08:00; Stop 08/24/17 at 07:59 Naloxone HCl (Narcan) 0.1 mg Q5MP PRN IV SEE LABEL COMMENTS; Start 08/17/17 at 08:00; Stop 09/16/17 at 07:59 Nitroglycerin (Nitrostat (1/ 150)) 0.4 mg Q5MP PRN SL CHEST PAIN; Start at 09:30; Stop 09/18/17 at 09:29 Non-Formulary Medication (Epidural/EMPLOYEE BENEFITS MANAGER [place]) USE THIS ENTRY TO VEND ... Q1M PRN XX SEE LABEL COMMENTS; Start 08/17/17 at 08:00; Stop 09/16/17 at 07:59 Octreotide Acetate (SandoSTATIN) 100 mcg Q8H SC ; Start 08/20/17 at 14:00; Stop 09/19/17 at 13:59 Ondansetron HCl (ZOFRAN INJection) 4 mg Q4HP PRN IV NAUSEA OR VOMITING; Start 08/16/17 at 00:00; Stop 08/16/17 at 01:15; Status DC Ondansetron HCl (ZOFRAN INJection) 4 mg Q6HP PRN IV NAUSEA OR VOMITING; Start 08/15/17 at 23:15; Stop 09/14/17 at 23:14; Status Future Hold Ondansetron HCl (ZOFRAN INJection) 4 mg Q6HP PRN IV NAUSEA; Start 08/17/17 at 08:00; Stop 09/16/17 at 07:59 Pantoprazole Sodium (Protonix) 40 mg BID IV Last administered on 08/20/17 08: 52; Start 08/16/17 at 09:00; Stop 09/15/17 at 08:59 Pneumococcal Polyvalent Vaccine (Prevnar 13) 0.5 ml ASDIRECTED IM Last administered on 08/19/17 10:16; Start 08/16/17 at 11:15; Stop 08/19/17 at 14:14 ; Status DC Propofol 1000 mg/ IV Miscellaneous Supplies 100 ml @ 6.68 mls/hr [id number] IV Last administered on 08/16/17 05:22; Start 08/15/17 at 23:47; Stop 08/16/17 at 10:41; Status DC Sodium Chloride 1,000 ml @ 15 mls/hr Q24H IV ; Start 08/17/17 at 07:49; Stop 08/17/17 at 07:55; Status DC Vitamin D (Vitamin D) 1,000 units DAILY PO Last administered on 08/20/17 08:53 ; Start 08/19/17 at 09:00; Stop 09/18/17 at 08:59 Allergies Coded Allergies: Penicillins (Unverified Allergy, Unknown, 04/25/17) Objective Physical Examination Examination GENERAL APPEARANCE: Sleepy but wakes up with voice prompts. Appears comfortable. SKIN: Warm and moist. HEENT: Normocephalic, atraumatic. [place] palpebral conjunctiva, anicteric sclerae. Lips and mucosa appear moist. His voice appears normal now NECK: Supple, no thyromegaly. No obvious jugular venous distention. The subcutaneous emphysema on his neck has mostly resolved LUNGS: Clear to auscultation bilaterally. No wheezing appreciated. HEART: No chest wall abnormalities. Regular rate and rhythm with no murmurs appreciated. ABDOMEN: Abdomen is moderately obese, round, soft, minimally distended. His right-sided YORDY drain continues to have a small amount of bilious material that appears dilated. His duodenostomy tube has been recorded to put out about 300 MLS and the YORDY drain only has put out 70 mL. The left YORDY drain underneath the gastrojejunostomy small amount of serosanguineous fluid. He has a feeding jejunostomy being used for feeding. Midline incision is clean, dry, intact with amisha intact.. EXTREMITIES: Extremities have no deformities. No edema identified. Vital Signs Vital Signs Date Time Temp Pulse Resp B/P (MAP) Pulse Ox O2 Delivery O2 Flow Rate FiO2 08/20/17 10:39 Room Air 08/20/17 10:00 98.1 78 20 126/67 (86) 93 08/19/17 12:00 1.0 08/16/17 15:00 40 I&Os I&O- Last 24 Hours up to 6 AM 08/21/17 06:00 Intake Total 0 ml Output Total 625 ml Balance -625 ml Duodenostomy tube 655 mL's (250 ML's overnight) Right YORDY drain 70 mL's(30 ML's overnight) Laboratory Data Labs 24H Laboratory Tests 2 08/20/17 06:27: Immature Granulocyte % (Auto) 2.0H, White Blood Count 7.7, Red Blood Count 3.76L , Hemoglobin 12.1L, Hematocrit 35.6L, Mean Corpuscular Volume 94.7, Mean Corpuscular Hemoglobin 32.2, Mean Corpuscular Hemoglobin Concent 34.0, Red Cell Distribution Width 13.4, Platelet Count 168, Neutrophils (%) (Auto) 71.9H, Lymphocytes (%) (Auto) 10.8L, Monocytes (%) (Auto) 12.0H, Eosinophils (%) (Auto ) 2.6, Basophils (%) (Auto) 0.7, Neutrophils # (Auto) 5.5, Lymphocytes # (Auto) 0.8L, Monocytes # (Auto) 0.9H, Eosinophils # (Auto) 0.2, Basophils # (Auto) 0.1 , Immature Granulocyte # (Auto) 0.2H, Nucleated Red Blood Cells % (auto) 0.0, Anion Gap 8, Glomerular Filtration Rate > 60.0, Blood Urea Nitrogen 18, Creatinine 0.62L, Sodium Level 137, Potassium Level 4.1, Chloride Level 103, Carbon Dioxide Level 26, Calcium Level 7.5L, Aspartate Amino Transf (AST/SGOT) 46H, Alanine Aminotransferase (ALT/SGPT) 88H, Alkaline Phosphatase 72, Total Bilirubin 2.1H, Total Protein 4.9L, Albumin 2.0L, Albumin/Globulin Ratio 0.69L CBC/BMP Laboratory Tests 08/20/17 06:27 Red Blood Count 3.76 L, Mean Corpuscular Volume 94.7, Mean Corpuscular Hemoglobin 32.2, Mean Corpuscular Hemoglobin Concent 34.0, Red Cell Distribution Width 13.4, Neutrophils (%) (Auto) 71.9 H, Lymphocytes (%) (Auto) 10.8 L, Monocytes (%) (Auto) 12.0 H, Eosinophils (%) (Auto) 2.6, Basophils (%) ( Auto) 0.7, Neutrophils # (Auto) 5.5, Lymphocytes # (Auto) 0.8 L, Monocytes # ( Auto) 0.9 H, Eosinophils # (Auto) 0.2, Basophils # (Auto) 0.1, Calcium Level 7.5 L, Aspartate Amino Transf (AST/SGOT) 46 H, Alanine Aminotransferase (ALT/ SGPT) 88 H, Alkaline Phosphatase 72, Total Bilirubin 2.1 H, Total Protein 4.9 L , Albumin 2.0 L Microbiology Microbiology 08/15/17 Body Fluid Culture - Final, Complete 08/15/17 Anaerobic Culture - Final, Complete Impression Perforated scarred duodenal ulcer (bulb toward 2nd portion of duodenum) POD2 Exploratory Laparotomy, Omental patch closure of perforation, lateral internal duodenostomy, Pyloric Exclusion, Feeding jejunostomy Bilateral Chest Tube placement for bilateral pneumothorax L Subclavian TLC placement Patient has a large friable duodenal bulb ulcer with a scarred in duodenum not amenable to resection or repair. Pyloric exclusion, lateral duodenostomy tube and a feeding jejunostomy tube was then placed. He continues to do well with no ongoing signs of sepsis. He still complains of pain at about the right lower quadrant area. His duodenostomy tube is working. New today is small amount of bilious fluid in the [place]iel[place]Gilbert drain next to the duodenal perforation. He is at 60 mL is an hour on his tube feedings and knees denying any nausea. Overall, this is what I expect him to do in so long as we are continuing to control the leakage from the duodenal perforation, I think he will do okay. We will continue to use a jejunostomy feeding tube. He continues to have a small amount of bilious output from the Oziel-Gilbert drain underneath the or close to the duodenal perforation but most of the drainage is coming out into the lateral duodenostomy tube. I will add Sandostatin to see if he could slow down the leakage further to try to incise the perforation to seal. There is also a small possibility that this drainage could be from the duodenostomy site also. They'll plan to study this probably in another couple weeks if the drainage does not stop. Plans 1.D/C EMPLOYEE BENEFITS MANAGER morphine 2. Incentive spirometer, ambulate out of bed 3. Jejunostomy feeding to 70 mL's/hr. KVO IVF. Continue with clears 4. Lovenox for DVT prophylaxis 5. Continue with Invanz 1 g daily. Peritoneal fluid Cultures are still pending 6. Physical therapy for ambulation and rehabilitation 7. DC Davis 8. Add Sandostatin Plan / VTE VTE Prophylaxis Ordered?: Yes Plan / Urinary Catheter Urinary Catheter: D/C Davis Reason for insertion/continuin: Critical Pt monitoring ORA SIMPSON MD Aug 20, 2017 11:35
[2017-08-20] MEDS ORDERED: NORCO, ANEXSIA 5/325MG TABLET (HYDROcodone/ACETAMINOPHEN) PO PRN (11:45)
[2017-08-20 14:00] VITALS: BP 127/69
[2017-08-20] MEDS: NORCO, ANEXSIA 5/325MG TABLET (HYDROcodone/ACETAMINOPHEN) PO PRN (14:10)
[2017-08-20] MEDS: OCTREOTIDE ACETATE 100 MCG/ML VIAL (J2354) SC SCH ×2 (14:10→21:01)
[2017-08-20] MEDS: ERTAPENEM SODIUM 1 GM in NS MINI-BAG PLUS 50 ML IV SCH (17:52)
[2017-08-20 18:00] VITALS: BP 125/69
[2017-08-20] MEDS ORDERED: SODIUM CHLORIDE 0.9% INJ 10 ML SYR IV PRN (20:45)
[2017-08-20] MEDS: SODIUM CHLORIDE 0.9% INJ 10 ML SYR IV SCH (21:01)
[2017-08-20] MEDS: ATORVASTATIN 20 MG TAB PO SCH (21:02)
[2017-08-20 22:00] VITALS: BP 149/71
[2017-08-21] MEDS: NORCO, ANEXSIA 5/325MG TABLET (HYDROcodone/ACETAMINOPHEN) PO PRN ×4 (05:13→19:37)
[2017-08-21] MEDS: SODIUM CHLORIDE 0.9% INJ 10 ML SYR IV SCH ×2 (05:13→13:53)
[2017-08-21] MEDS: OCTREOTIDE ACETATE 100 MCG/ML VIAL (J2354) SC SCH ×3 (05:14→21:07)
[2017-08-21 05:47] LABS: MEAN CORPUSCULAR HEMOGLOBIN 32.1 pg (27.0-33.0); MEAN CORPUSCULAR VOLUME 94.6 fl (80.0-96.0); PLATELET COUNT, AUTOMATED 185 10^3/uL (150-450); RED CELL DISTRIBUTION WIDTH 13.6 % (11.5-14.5); WHITE BLOOD COUNT 7.9 10^3/uL (4.0-10.0)
[2017-08-21 05:49] LABS: ADD MANUAL DIFFER YES; DIFF SLIDE NUMBER 18
[2017-08-21 06:00] VITALS: BP 136/73
[2017-08-21 06:15] LABS: ALBUMIN/GLOBULIN RATIO 0.65 (1.00-1.93); ALKALINE PHOSPHATASE 87 U/L (45-117); ALT/SGPT 90 U/L (12-78); ANION GAP 7 MEQ/L (8-16); AST/SGOT 49 U/L (15-37); BILIRUBIN,TOTAL 1.9 MG/DL (0.2-1.0); BLOOD UREA NITROGEN 18 MG/DL (7-18); CALCIUM LEVEL 7.8 MG/DL (8.8-10.2); CARBON DIOXIDE LEVEL 26 MEQ/L (21-32); CHLORIDE LEVEL 104 MEQ/L (98-107); CREATININE FOR GFR 0.66 MG/DL (0.70-1.30); GLOMERULAR FILTRATION RATE > 60.0 (>49); GLUCOSE, FASTING 127 MG/DL (80-110); POTASSIUM SERUM 4.5 MEQ/L (3.5-5.1); SODIUM LEVEL 137 MEQ/L (136-145); TOTAL PROTEIN 5.1 GM/DL (6.4-8.2)
[2017-08-21 06:57] LABS: ANISOCYTOSIS 1+; BANDS 5 % (< 11); BASOPHILS 1 % (0-4); EOSINOPHILS 8 % (0-5); POIKILOCYTOSIS 1+
[2017-08-21] MEDS: IPRATROPIUM 0.5MG/ALBUTEROL 2.5MG INH SOL UD 3ML (DUONEB)(J7620) NEB SCH ×4 (07:24→19:32)
[2017-08-21] MEDS: ISOSORBIDE MON. (IMDUR) 30 MG XR TAB PO SCH (08:51)
[2017-08-21] MEDS: VITAMIN D 1,000 INTERNATIONAL UNITS TABLET PO SCH (08:51)
[2017-08-21] MEDS: MULTIVITAMINS/MINERALS THERAP 1 TAB PO SCH (08:52)
[2017-08-21] MEDS: METOPROLOL TART 25 MG TABLET PO SCH ×2 (08:52→21:08)
[2017-08-21] MEDS: PANTOPRAZOLE 40MG INJ (PROTONIX) (C9113) IV SCH ×2 (08:53→21:07)
[2017-08-21 10:00] VITALS: BP 126/71
--- NOTE | 2017-08-21 13:29 | IPNPDOC ---
Subjective General Date/Time Seen The patient was seen on 08/21/17 at 13:23. Subject Chief Complaint/History The patient is a 66-year-old male admitted with a reason for visit of Perforated Duodenal Ulcer. No events overnight. He is tolerating clears and jejunostomy feeding tube. He has had bowel movements yesterday which is normal. He continues to have a small leak at the duodenal perforation site this manifested by small amount of bilious drain at the right YORDY drain site. He's not showing any signs of sepsis. His [id number] spoke to our nurse yesterday regarding her concern that he might sign himself out AGAINST MEDICAL ADVICE because he is getting antsy knee suspected to have had PTSD after his deployment in [place]. No other concerns voiced by nursing staff. Current Medications Current Medications Current Medications Acetaminophen (Tylenol Tab) 650 mg Q4HP PRN PO MILD PAIN or TEMP > 101; Start 08/15/17 at 23:15; Stop 09/14/17 at 23:14 Acetaminophen/ Hydrocodone Bitart ([place], [place] 5/325) 1 tab Q4HP PRN PO MILD /MODERATE PAIN (PS 1-7); Start 08/20/17 at 11:45; Stop 08/27/17 at 11:44 Acetaminophen/ Hydrocodone Bitart ([place], [place]nexs[place] 5/325) 2 tab Q4HP PRN PO SEVERE PAIN (PS 8-10) Last administered on 08/21/17 10:07; Start 08/20/17 at 11:45; Stop 08/27/17 at 11:44 Albuterol Sulfate (Proventil Neb) 2.5 mg Q2HP PRN NEB SHORTNESS OF BREATH; Start 08/16/17 at 00:00; Stop 09/15/17 at 00:00 Albuterol/ Ipratropium (Duoneb (Ipr 0.5mg/Alb 2.5mg)) 3 ml RQ4H NEB Last administered on 08/16/17 09:25; Start 08/16/17 at 00:00; Stop 08/16/17 at 10:43 ; Status DC Albuterol/ Ipratropium (Duoneb (Ipr 0.5mg/Alb 2.5mg)) 3 ml RQID NEB Last administered on 08/21/17 11:24; Start 08/16/17 at 12:00; Stop 09/15/17 at 11: 59 Atorvastatin Calcium (Lipitor) 40 mg QHS PO Last administered on 08/20/17 21: 02; Start 08/19/17 at 21:00; Stop 09/18/17 at 20:59 Chlorhexidine Gluconate (Chlorhexidine Gluconate) SWAB/BRUSH ORAL CAVITY BID MT ; Start 08/16/17 at 09:00; Stop 08/16/17 at 10:41; Status DC Cyclobenzaprine HCl (Flexeril) 10 mg DAILY PRN PO MUSCLE SPASMS; Start at 09:30; Stop 09/18/17 at 09:29 Diphenhydramine HCl (Benadryl) 12.5 mg Q4HP PRN IV ITCHING; Start 08/17/17 at 08:00; Stop 08/20/17 at 11:37; Status DC Enoxaparin Sodium (Lovenox) 40 mg DAILY SC Last administered on 08/20/17 08:54 ; Start 08/16/17 at 09:00; Stop 08/21/17 at 08:59; Status DC Ertapenem 1 gm/ Sodium Chloride 50 ml @ 100 mls/hr Q24H IV Last administered on 08/20/17 17:52; Start 08/16/17 at 17:00; Stop 08/23/17 at 16:59 Fentanyl Citrate (Sublimaze) 25 mcg Q5MP PRN IV MODERATE PAIN (PS 4-7); Start 08/16/17 at 00:00; Stop 08/16/17 at 01:15; Status DC Heparin Sodium (Heparin Lock Flush 10units/ml) 10 units ASDIRECTED PRN IV SEE LABEL COMMENTS; Start 08/20/17 at 20:45; Stop 09/19/17 at 20:44 Heparin Sodium (Heparin Lock Flush 10units/ml) 10 units HLF IV Last administered on 08/21/17 05:13; Start 08/20/17 at 22:00; Stop 09/19/17 at 21: 59 Home Med (Med Rec Complete!) ASDIRECTED XX ; Start 08/15/17 at 16:15; Stop 08/15/17 at 16:15; Status DC Influenza Virus Vaccine (Fluzone High Dose) 0.5 ml ASDIRECTED IM Last administered on 08/19/17 10:15; Start 08/16/17 at 11:15; Stop 08/19/17 at 14:14 ; Status DC Isosorbide Mononitrate (Imdur) 30 mg DAILY PO Last administered on 08/21/17 08:51; Start 08/19/17 at 09:00; Stop 09/18/17 at 08:59 Lactated Ringer's 1,000 ml @ 100 mls/hr Q10H IV Last administered on 08:54; Start 08/15/17 at 17:00; Stop 08/20/17 at 11:37; Status DC Lactated Ringer's 1,000 ml @ 100 mls/hr Q10H IV ; Start 08/16/17 at 00:00; Stop 08/16/17 at 01:15; Status DC Magnesium Hydroxide (Milk Of Magnesia) 30 ml DAILYPRN PRN PO CONSTIPATION; Start 08/15/17 at 23:15; Stop 09/14/17 at 23:14 Metoprolol Tartrate (Lopressor) 25 mg BID PO Last administered on 08/21/17 08 :52; Start 08/15/17 at 21:00; Stop 09/14/17 at 20:59 Midazolam HCl (Versed) 2 mg Q15MP PRN IV AGITATION Last administered on 05:04; Start 08/16/17 at 00:00; Stop 08/16/17 at 10:41; Status DC Morphine Sulfate (Morphine Sulfate In 0.9%Nacl Iv Bag) Concentration 1 mg/ml ASDIRECTED PRN IV SEE LABEL COMMENTS Last administered on 08/18/17 18:52; Start 08/17/17 at 08:00; Stop 08/20/17 at 11:37; Status DC Morphine Sulfate (Morphine Sulfate Inj) 2 mg Q2HP PRN IV PAIN Last administered on 08/17/17 06:42; Start 08/16/17 at 00:00; Stop 08/17/17 at 07:53 ; Status DC Morphine Sulfate (Morphine Sulfate Inj) 4 mg Q1H PRN IV SEVERE PAIN (PS 8-10); Start 08/15/17 at 23:15; Stop 08/15/17 at 23:53; Status DC Morphine Sulfate (Morphine Sulfate Inj) 4 mg Q4HP PRN IV SEVERE PAIN (PS 8-10) ; Start 08/20/17 at 11:45; Stop 08/27/17 at 11:44 Multivitamins (Theragram-M) 1 tab DAILY PO Last administered on 08/21/17 08: 52; Start 08/19/17 at 09:00; Stop 09/18/17 at 08:59 Nalbuphine HCl (Nubain) 2.5 mg Q6HP PRN IV PRURITIS; Start 08/17/17 at 08:00; Stop 08/20/17 at 11:37; Status DC Naloxone HCl (Narcan) 0.1 mg Q5MP PRN IV SEE LABEL COMMENTS; Start 08/17/17 at 08:00; Stop 08/20/17 at 11:37; Status DC Nitroglycerin (Nitrostat (1/ 150)) 0.4 mg Q5MP PRN SL CHEST PAIN; Start at 09:30; Stop 09/18/17 at 09:29 Non-Formulary Medication (Epidural/FORM DESIGNER [place]) USE THIS ENTRY TO VEND ... Q1M PRN XX SEE LABEL COMMENTS; Start 08/17/17 at 08:00; Stop 08/20/17 at 11:37; Status DC Octreotide Acetate (SandoSTATIN) 100 mcg Q8H SC Last administered on 05:14; Start 08/20/17 at 14:00; Stop 09/19/17 at 13:59 Ondansetron HCl (ZOFRAN INJection) 4 mg Q4HP PRN IV NAUSEA OR VOMITING; Start 08/16/17 at 00:00; Stop 08/16/17 at 01:15; Status DC Ondansetron HCl (ZOFRAN INJection) 4 mg Q6HP PRN IV NAUSEA OR VOMITING; Start 08/15/17 at 23:15; Stop 09/14/17 at 23:14; Status Future Hold Ondansetron HCl (ZOFRAN INJection) 4 mg Q6HP PRN IV NAUSEA; Start 08/17/17 at 08:00; Stop 08/20/17 at 11:37; Status DC Pantoprazole Sodium (Protonix) 40 mg BID IV Last administered on 08/21/17 08: 53; Start 08/16/17 at 09:00; Stop 09/15/17 at 08:59 Pneumococcal Polyvalent Vaccine (Prevnar 13) 0.5 ml ASDIRECTED IM Last administered on 08/19/17 10:16; Start 08/16/17 at 11:15; Stop 08/19/17 at 14:14 ; Status DC Propofol 1000 mg/ IV Miscellaneous Supplies 100 ml @ 6.68 mls/hr [id number] IV Last administered on 08/16/17 05:22; Start 08/15/17 at 23:47; Stop 08/16/17 at 10:41; Status DC Sodium Chloride 1,000 ml @ 15 mls/hr Q24H IV ; Start 08/17/17 at 07:49; Stop 08/17/17 at 07:55; Status DC Sodium Chloride (Saline Lock Flush) 10 ml ASDIRECTED PRN IV SEE LABEL COMMENTS ; Start 08/20/17 at 20:45; Stop 09/19/17 at 20:44 Sodium Chloride (Saline Lock Flush) 10 ml SLF IV Last administered on 05:13; Start 08/20/17 at 22:00; Stop 09/19/17 at 21:59 Vitamin D (Vitamin D) 1,000 units DAILY PO Last administered on 08/21/17 08: 51; Start 08/19/17 at 09:00; Stop 09/18/17 at 08:59 Allergies Coded Allergies: Penicillins (Unverified Allergy, Unknown, 04/25/17) Objective Physical Examination Examination GENERAL APPEARANCE: Patient seen appears comfortable appears mildly depressed. SKIN: Warm and moist. HEENT: Normocephalic, atraumatic. [place] palpebral conjunctiva, anicteric sclerae. Lips and mucosa appear moist. NECK: Supple, no thyromegaly. No obvious jugular venous distention. LUNGS: Clear to auscultation bilaterally. No wheezing appreciated. HEART: No chest wall abnormalities. Regular rate and rhythm with no murmurs appreciated. ABDOMEN: Abdomen is round, soft, minimally distended. Right YORDY drain and right duodenostomy tube with thin bilious fluid. There is decreased amount on both drains but relatively more on the YORDY drain than previous days. Left YORDY drain is serosanguineous. Jejunostomy tube is functioning. Midline incision is clean dry and intact. EXTREMITIES: Extremities have no deformities. No edema identified. Vital Signs Vital Signs Date Time Temp Pulse Resp B/P (MAP) Pulse Ox O2 Delivery O2 Flow Rate FiO2 08/21/17 12:18 16 08/21/17 11:50 Room Air 08/21/17 10:07 74 146/88 95 08/21/17 10:00 97.2 08/19/17 12:00 1.0 08/16/17 15:00 40 I&Os I&O- Last 24 Hours up to 6 AM 08/22/17 06:00 Intake Total 0 ml Output Total 55 ml Balance -55 ml Laboratory Data Labs 24H Laboratory Tests 2 08/21/17 05:15: Nucleated Red Blood Cells % (auto) 0.0, Neutrophils 73, Band Neutrophils 5, Lymphocytes (Manual) 9L, Monocytes (Manual) 4, Eosinophils (Manual) 8H, Basophils (Manual) 1, Platelet Estimate NORMAL, Poikilocytosis 1+, Anisocytosis 1+, Anion Gap 7L, Glomerular Filtration Rate > 60.0, Blood Urea Nitrogen 18, Creatinine 0.66L, Sodium Level 137, Potassium Level 4.5, Chloride Level 104, Carbon Dioxide Level 26, Calcium Level 7.8L, Aspartate Amino Transf (AST/SGOT) 49H, Alanine Aminotransferase (ALT/SGPT) 90H, Alkaline Phosphatase 87, Total Bilirubin 1.9H, Total Protein 5.1L, Albumin 2.0L, Albumin/Globulin Ratio 0.65L CBC/BMP Laboratory Tests 08/21/17 05:15 Red Blood Count 3.92 L, Mean Corpuscular Volume 94.6, Mean Corpuscular Hemoglobin 32.1, Mean Corpuscular Hemoglobin Concent 34.0, Red Cell Distribution Width 13.6, Calcium Level 7.8 L, Aspartate Amino Transf (AST/SGOT) 49 H, Alanine Aminotransferase (ALT/SGPT) 90 H, Alkaline Phosphatase 87, Total Bilirubin 1.9 H, Total Protein 5.1 L, Albumin 2.0 L Microbiology Microbiology 08/15/17 Body Fluid Culture - Preliminary, Resulted 08/15/17 Anaerobic Culture - Final, Complete Impression Perforated scarred duodenal ulcer (bulb toward 2nd portion of duodenum) POD6 Exploratory Laparotomy, Omental patch closure of perforation, lateral internal duodenostomy, Pyloric Exclusion, Feeding jejunostomy Bilateral Chest Tube placement for bilateral pneumothorax L Subclavian TLC placement Patient has a large friable duodenal bulb ulcer with a scarred in duodenum not amenable to resection or repair. Pyloric exclusion, lateral duodenostomy tube and a feeding jejunostomy tube was then placed. He continues to do well with no ongoing signs of sepsis. I added Sandostatin yesterday to decrease further the leakage from the duodenal perforation. This seems to be working some. He has had a bowel movement yesterday. He complains that his abdomen feels have. He has only gotten out of bed and walked in the room and has not walked outside to the hallways and I have asked him to do so today. Our nurse reports that the [id number] was concern with regards to his PTSD that he might walked out of the hospital. I asked him about it and he denies having any plans of going out of the hospital until he is ready to go home from a medical stand point 1.D/C FORM DESIGNER morphine 2. Incentive spirometer, ambulate out of bed 3. Jejunostomy feeding to 70 mL's/hr. KVO IVF. Continue with clears 4. Lovenox for DVT prophylaxis 5. Continue with Invanz 1 g daily. Peritoneal fluid Cultures are shows no growth 6. Physical therapy for ambulation and rehabilitation 7. Continue Sandostatin Plan / VTE VTE Prophylaxis Ordered?: Yes Plan / Urinary Catheter Urinary Catheter: D/C Davis Reason for insertion/continuin: Critical Pt monitoring ORA SIMPSON MD Aug 21, 2017 13:29
[2017-08-21 14:00] VITALS: BP 129/69
[2017-08-21] MEDS: ERTAPENEM SODIUM 1 GM in NS MINI-BAG PLUS 50 ML IV SCH (17:24)
[2017-08-21 18:00] VITALS: BP 146/78
[2017-08-21] MEDS: ATORVASTATIN 20 MG TAB PO SCH (21:07)
[2017-08-21 22:00] VITALS: BP 133/63
[2017-08-21] MEDS: ENOXAPARIN 40 MG/0.4 ML SYRINGE (J1650) SC SCH (22:49)
[2017-08-22] MEDS: OCTREOTIDE ACETATE 100 MCG/ML VIAL (J2354) SC SCH ×3 (05:10→21:02)
[2017-08-22] MEDS: NORCO, ANEXSIA 5/325MG TABLET (HYDROcodone/ACETAMINOPHEN) PO PRN ×3 (05:11→21:03)
[2017-08-22 06:00] VITALS: BP 153/75
[2017-08-22 06:53] LABS: MEAN CORPUSCULAR HEMOGLOBIN 32.6 pg (27.0-33.0); MEAN CORPUSCULAR HGB CONC 34.5 g/dl (32.0-36.5); MEAN CORPUSCULAR VOLUME 94.7 fl (80.0-96.0); PLATELET COUNT, AUTOMATED 211 10^3/uL (150-450); RED CELL DISTRIBUTION WIDTH 13.9 % (11.5-14.5)
[2017-08-22 07:06] LABS: ADD MANUAL DIFFER YES; DIFF SLIDE NUMBER 10; LEFT SHIFT MDIFF
[2017-08-22 07:10] LABS: ALBUMIN/GLOBULIN RATIO 0.49 (1.00-1.93); ALKALINE PHOSPHATASE 109 U/L (45-117); ALT/SGPT 86 U/L (12-78); ANION GAP 4 MEQ/L (8-16); AST/SGOT 46 U/L (15-37); BILIRUBIN,TOTAL 1.5 MG/DL (0.2-1.0); BLOOD UREA NITROGEN 20 MG/DL (7-18); CALCIUM LEVEL 7.8 MG/DL (8.8-10.2); CARBON DIOXIDE LEVEL 29 MEQ/L (21-32); CHLORIDE LEVEL 104 MEQ/L (98-107); CREATININE FOR GFR 0.68 MG/DL (0.70-1.30); GLOMERULAR FILTRATION RATE > 60.0 (>49); GLUCOSE, FASTING 117 MG/DL (80-110); POTASSIUM SERUM 4.2 MEQ/L (3.5-5.1); SODIUM LEVEL 137 MEQ/L (136-145); TOTAL PROTEIN 6.1 GM/DL (6.4-8.2)
[2017-08-22 07:30] LABS: BANDS 1 % (< 11); EOSINOPHILS 5 % (0-5)
[2017-08-22 08:00] VITALS: BP 133/62
[2017-08-22] MEDS: IPRATROPIUM 0.5MG/ALBUTEROL 2.5MG INH SOL UD 3ML (DUONEB)(J7620) NEB SCH ×4 (08:00→20:13)
[2017-08-22] MEDS: PANTOPRAZOLE 40MG INJ (PROTONIX) (C9113) IV SCH ×2 (08:17→21:03)
[2017-08-22] MEDS: MULTIVITAMINS/MINERALS THERAP 1 TAB PO SCH (08:17)
[2017-08-22] MEDS: VITAMIN D 1,000 INTERNATIONAL UNITS TABLET PO SCH (08:17)
[2017-08-22] MEDS: ISOSORBIDE MON. (IMDUR) 30 MG XR TAB PO SCH (08:17)
[2017-08-22] MEDS: METOPROLOL TART 25 MG TABLET PO SCH ×2 (08:18→21:04)
[2017-08-22] MEDS: MORPHINE 4 MG/ML 1ML SYRINGE IV PRN ×2 (08:27→17:31)
[2017-08-22 14:02] VITALS: BP 130/73
[2017-08-22] MEDS ORDERED: GASTROGRAFIN SOLUTION 30ML PO ONE (14:30)
[2017-08-22] MEDS ORDERED: ISOVUE-370 76% 100ML VIAL (Q9967) As Ordered ONE (14:59)
[2017-08-22] MEDS ORDERED: GASTROGRAFIN SOLUTION 30ML (Q9963) PO ONE (15:00)
[2017-08-22] MEDS: ERTAPENEM SODIUM 1 GM in NS MINI-BAG PLUS 50 ML IV SCH (17:30)
--- NOTE | 2017-08-22 18:06 | REP ---
CT of the abdomen and pelvis with IV contrast, without bowel contrast: Comparison is 08/15/2017. There are now surgical drains in the abdomen. The pneumoperitoneum has significantly decreased, although there is a small amount of persisting pneumoperitoneum. The retroperitoneal or pararenal gas has significantly decreased. The extra abdominal subcutaneous emphysema in the right flank has resolved. The pneumobilia has resolved. The gastric distension has decreased although the stomach is distended but not quite as large as previously. There are small bilateral pleural effusions. There is a surgical staple line in the distal stomach as an interval change. There is induration of the mesenteric fat in the abdominal right upper quadrant and there are small focal fluid collections in this location. There is a jejunal tube. There is no bowel distension. The liver is unchanged. There is a cyst in the left lobe of the liver, unchanged. The gallbladder, pancreas and spleen are unchanged. The adrenals, kidneys and abdominal aorta are unchanged. There is a nonobstructive calculus at the lower pole of the left kidney, unchanged. Pelvis: There is no ascites. The bladder is unremarkable. The pelvic bowel loops are unremarkable. Impression: The volume of intraperitoneal air has decreased. The volume of extraperitoneal air has decreased. There are surgical drainage tubes. There is a J tube. There postsurgical changes in the distal stomach. There is persisting induration and small fluid pockets in the mesentery in the right upper quadrant. There are small bilateral pleural effusions. Signed by Collin Weinstein MD 08/22/2017 05:57 P
[2017-08-22] MEDS: LR 1,000 ML IV SCH (18:23)
[2017-08-22] MEDS: ENOXAPARIN 40 MG/0.4 ML SYRINGE (J1650) SC SCH (21:02)
[2017-08-22] MEDS: ATORVASTATIN 20 MG TAB PO SCH (21:03)
[2017-08-22 22:00] VITALS: BP 119/64
[2017-08-23] VITALS (10 sets, daily range): BP systolic 100–130; BP diastolic 55–78
[2017-08-23] MEDS: LR 1,000 ML IV SCH ×4 (01:49→22:28)
--- NOTE | 2017-08-23 03:56 | IPNPDOC ---
Subjective General Date/Time Seen The patient was seen on 08/22/17 at 6 pm Subject Chief Complaint/History The patient is a 66-year-old male admitted with a reason for visit of Perforated Duodenal Ulcer. There is a change in the fasting of drainage on the patient's drains overnight. The right Oziel-Gilbert drain has begun to drain more bilious fluid in the right red rubber catheter/duodenal colostomy to have stopped draining. Patient reports pressure like pain on the midabdomen. His nurse reports that overnight there are more drainage from the YORDY drain and drainage around the drain site on the right side. Current Medications Current Medications Current Medications Acetaminophen (Tylenol Tab) 650 mg Q4HP PRN PO MILD PAIN or TEMP > 101; Start 08/15/17 at 23:15; Stop 09/14/17 at 23:14 Acetaminophen/ Hydrocodone Bitart ([place], Anexsia 5/325) 1 tab Q4HP PRN PO MILD /MODERATE PAIN (PS 1-7); Start 08/20/17 at 11:45; Stop 08/27/17 at 11:44 Acetaminophen/ Hydrocodone Bitart ([place], Anexsia 5/325) 2 tab Q4HP PRN PO SEVERE PAIN (PS 8-10) Last administered on 08/22/17 21:03; Start 08/20/17 at 11:45; Stop 08/27/17 at 11:44 Albuterol Sulfate (Proventil Neb) 2.5 mg Q2HP PRN NEB SHORTNESS OF BREATH; Start 08/16/17 at 00:00; Stop 09/15/17 at 00:00 Albuterol/ Ipratropium (Duoneb (Ipr 0.5mg/Alb 2.5mg)) 3 ml RQ4H NEB Last administered on 08/16/17 09:25; Start 08/16/17 at 00:00; Stop 08/16/17 at 10:43 ; Status DC Albuterol/ Ipratropium (Duoneb (Ipr 0.5mg/Alb 2.5mg)) 3 ml RQID NEB Last administered on 08/22/17 20:13; Start 08/16/17 at 12:00; Stop 09/15/17 at 11: 59 Atorvastatin Calcium (Lipitor) 40 mg QHS PO Last administered on 08/22/17 21: 03; Start 08/19/17 at 21:00; Stop 09/18/17 at 20:59 Chlorhexidine Gluconate (Chlorhexidine Gluconate) SWAB/BRUSH ORAL CAVITY BID MT ; Start 08/16/17 at 09:00; Stop 08/16/17 at 10:41; Status DC Cyclobenzaprine HCl (Flexeril) 10 mg DAILY PRN PO MUSCLE SPASMS; Start at 09:30; Stop 09/18/17 at 09:29 Diphenhydramine HCl (Benadryl) 12.5 mg Q4HP PRN IV ITCHING; Start 08/17/17 at 08:00; Stop 08/20/17 at 11:37; Status DC Enoxaparin Sodium (Lovenox) 40 mg DAILY SC Last administered on 08/20/17 08:54 ; Start 08/16/17 at 09:00; Stop 08/21/17 at 19:37; Status DC Enoxaparin Sodium (Lovenox) 40 mg DAILY@2100 SC Last administered on 21:02; Start 08/21/17 at 21:00; Stop 08/26/17 at 20:59 Ertapenem 1 gm/ Sodium Chloride 50 ml @ 100 mls/hr Q24H IV Last administered on 08/22/17 17:30; Start 08/16/17 at 17:00; Stop 08/23/17 at 16:59 Fentanyl Citrate (Sublimaze) 25 mcg Q5MP PRN IV MODERATE PAIN (PS 4-7); Start 08/16/17 at 00:00; Stop 08/16/17 at 01:15; Status DC Heparin Sodium (Heparin Lock Flush 10units/ml) 10 units ASDIRECTED PRN IV SEE LABEL COMMENTS; Start 08/20/17 at 20:45; Stop 08/21/17 at 14:31; Status DC Heparin Sodium (Heparin Lock Flush 10units/ml) 10 units HLF IV Last administered on 08/21/17 05:13; Start 08/20/17 at 22:00; Stop 08/21/17 at 14: 31; Status DC Home Med (Med Rec Complete!) ASDIRECTED XX ; Start 08/15/17 at 16:15; Stop 08/15/17 at 16:15; Status DC Influenza Virus Vaccine (Fluzone High Dose) 0.5 ml ASDIRECTED IM Last administered on 08/19/17 10:15; Start 08/16/17 at 11:15; Stop 08/19/17 at 14:14 ; Status DC Isosorbide Mononitrate (Imdur) 30 mg DAILY PO Last administered on 08/22/17 08:17; Start 08/19/17 at 09:00; Stop 09/18/17 at 08:59 Lactated Ringer's 1,000 ml @ 100 mls/hr Q10H IV Last administered on 08:54; Start 08/15/17 at 17:00; Stop 08/20/17 at 11:37; Status DC Lactated Ringer's 1,000 ml @ 100 mls/hr Q10H IV ; Start 08/16/17 at 00:00; Stop 08/16/17 at 01:15; Status DC Lactated Ringer's 1,000 ml @ 125 mls/hr Q8H IV Last administered on 01:49; Start 08/22/17 at 18:00; Stop 09/21/17 at 17:59 Magnesium Hydroxide (Milk Of Magnesia) 30 ml DAILYPRN PRN PO CONSTIPATION; Start 08/15/17 at 23:15; Stop 09/14/17 at 23:14 Metoprolol Tartrate (Lopressor) 25 mg BID PO Last administered on 08/22/17 21 :04; Start 08/15/17 at 21:00; Stop 09/14/17 at 20:59 Midazolam HCl (Versed) 2 mg Q15MP PRN IV AGITATION Last administered on 05:04; Start 08/16/17 at 00:00; Stop 08/16/17 at 10:41; Status DC Miscellaneous (Unresolved Clarification Entry) SEE LABEL COMMENTS UNRESOLVED XX ; Start 08/21/17 at 00:01; Stop 08/21/17 at 19:37; Status DC Morphine Sulfate (Morphine Sulfate In 0.9%Nacl Iv Bag) Concentration 1 mg/ml ASDIRECTED PRN IV SEE LABEL COMMENTS Last administered on 08/18/17 18:52; Start 08/17/17 at 08:00; Stop 08/20/17 at 11:37; Status DC Morphine Sulfate (Morphine Sulfate Inj) 2 mg Q2HP PRN IV PAIN Last administered on 08/17/17 06:42; Start 08/16/17 at 00:00; Stop 08/17/17 at 07:53 ; Status DC Morphine Sulfate (Morphine Sulfate Inj) 4 mg Q1H PRN IV SEVERE PAIN (PS 8-10); Start 08/15/17 at 23:15; Stop 08/15/17 at 23:53; Status DC Morphine Sulfate (Morphine Sulfate Inj) 4 mg Q4HP PRN IV SEVERE PAIN (PS 8-10) Last administered on 08/22/17 17:31; Start 08/20/17 at 11:45; Stop 08/27/17 at 11:44 Multivitamins (Theragram-M) 1 tab DAILY PO Last administered on 08/22/17 08: 17; Start 08/19/17 at 09:00; Stop 09/18/17 at 08:59 Nalbuphine HCl (Nubain) 2.5 mg Q6HP PRN IV PRURITIS; Start 08/17/17 at 08:00; Stop 08/20/17 at 11:37; Status DC Naloxone HCl (Narcan) 0.1 mg Q5MP PRN IV SEE LABEL COMMENTS; Start 08/17/17 at 08:00; Stop 08/20/17 at 11:37; Status DC Nitroglycerin (Nitrostat (1/ 150)) 0.4 mg Q5MP PRN SL CHEST PAIN; Start at 09:30; Stop 09/18/17 at 09:29 Non-Formulary Medication (Epidural/DRY CELL AND [employer]Y [employer]ER [place]) USE THIS ENTRY TO VEND ... Q1M PRN XX SEE LABEL COMMENTS; Start 08/17/17 at 08:00; Stop 08/20/17 at 11:37; Status DC Octreotide Acetate (SandoSTATIN) 100 mcg Q8H SC Last administered on 21:02; Start 08/20/17 at 14:00; Stop 09/19/17 at 13:59 Ondansetron HCl (ZOFRAN INJection) 4 mg Q4HP PRN IV NAUSEA OR VOMITING; Start 08/16/17 at 00:00; Stop 08/16/17 at 01:15; Status DC Ondansetron HCl (ZOFRAN INJection) 4 mg Q6HP PRN IV NAUSEA OR VOMITING; Start 08/15/17 at 23:15; Stop 09/14/17 at 23:14; Status Future Hold Ondansetron HCl (ZOFRAN INJection) 4 mg Q6HP PRN IV NAUSEA; Start 08/17/17 at 08:00; Stop 08/20/17 at 11:37; Status DC Pantoprazole Sodium (Protonix) 40 mg BID IV Last administered on 08/22/17 21: 03; Start 08/16/17 at 09:00; Stop 09/15/17 at 08:59 Pneumococcal Polyvalent Vaccine (Prevnar 13) 0.5 ml ASDIRECTED IM Last administered on 08/19/17 10:16; Start 08/16/17 at 11:15; Stop 08/19/17 at 14:14 ; Status DC Propofol 1000 mg/ IV Miscellaneous Supplies 100 ml @ 6.68 mls/hr [id number] IV Last administered on 08/16/17 05:22; Start 08/15/17 at 23:47; Stop 08/16/17 at 10:41; Status DC Sodium Chloride 1,000 ml @ 15 mls/hr Q24H IV ; Start 08/17/17 at 07:49; Stop 08/17/17 at 07:55; Status DC Sodium Chloride (Saline Lock Flush) 10 ml ASDIRECTED PRN IV SEE LABEL COMMENTS ; Start 08/20/17 at 20:45; Stop 08/21/17 at 14:31; Status DC Sodium Chloride (Saline Lock Flush) 10 ml SLF IV Last administered on 05:13; Start 08/20/17 at 22:00; Stop 08/21/17 at 14:31; Status DC Vitamin D (Vitamin D) 1,000 units DAILY PO Last administered on 08/22/17 08: 17; Start 08/19/17 at 09:00; Stop 09/18/17 at 08:59 Allergies Coded Allergies: Penicillins (Unverified Allergy, Unknown, 04/25/17) Objective Physical Examination Examination GENERAL APPEARANCE:Patient seen, laying in bed, awake, alert, and oriented. Comfortable, in no acute distress, looks depressed SKIN: Warm and moist. HEENT: Normocephalic, atraumatic. [place] palpebral conjunctiva, anicteric sclerae. Lips and mucosa appear moist. NECK: Supple, no thyromegaly. No obvious jugular venous distention. LUNGS: Clear to auscultation bilaterally. No wheezing appreciated. HEART: No chest wall abnormalities. Regular rate and rhythm with no murmurs appreciated. ABDOMEN: Abdomen is round, soft, minimally distended. Drain sites were assessed. There is significant drainage of bilious fluid on the right YORDY drain. The right red rubber catheter has very scant amount of drainage in the bag. The left YORDY drain still has just minimal serosanguineous fluid. The jejunostomy tube 's being used for feeding and is working. The midline incision is clean, dry, intact. Minimal tenderness over the periumbilical area without any rebound or guarding EXTREMITIES: Extremities have no deformities. No edema identified. Vital Signs Vital Signs Date Time Temp Pulse Resp B/P (MAP) Pulse Ox O2 Delivery O2 Flow Rate FiO2 08/22/17 22:00 97.6 78 18 119/64 (82) 96 Room Air 08/19/17 12:00 1.0 Laboratory Data Labs 24H Laboratory Tests 2 08/22/17 05:29: Nucleated Red Blood Cells % (auto) 0.0, Neutrophils 70, Band Neutrophils 1, Lymphocytes (Manual) 16, Monocytes (Manual) 8, Eosinophils (Manual) 5, Platelet Estimate NORMAL, Red Blood Cell Morphology NORMAL, Anion Gap 4L, Glomerular Filtration Rate > 60.0, Blood Urea Nitrogen 20H, Creatinine 0.68L, Sodium Level 137, Potassium Level 4.2, Chloride Level 104, Carbon Dioxide Level 29, Calcium Level 7.8L, Aspartate Amino Transf (AST/SGOT) 46H, Alanine Aminotransferase (ALT /SGPT) 86H, Alkaline Phosphatase 109, Total Bilirubin 1.5H, Total Protein 6.1L, Albumin 2.0L, Albumin/Globulin Ratio 0.49L CBC/BMP Laboratory Tests 08/22/17 05:29 Red Blood Count 3.77 L, Mean Corpuscular Volume 94.7, Mean Corpuscular Hemoglobin 32.6, Mean Corpuscular Hemoglobin Concent 34.5, Red Cell Distribution Width 13.9, Calcium Level 7.8 L, Aspartate Amino Transf (AST/SGOT) 46 H, Alanine Aminotransferase (ALT/SGPT) 86 H, Alkaline Phosphatase 109, Total Bilirubin 1.5 H, Total Protein 6.1 L, Albumin 2.0 L Microbiology Microbiology 08/15/17 Body Fluid Culture - Preliminary, Resulted 08/15/17 Anaerobic Culture - Final, Complete Imaging Studies CT scan of abdomen and pelvis There is no ascites. The bladder is unremarkable. The pelvic bowel loops are unremarkable. Impression: The volume of intraperitoneal air has decreased. The volume of extraperitoneal air has decreased. There are surgical drainage tubes. There is a J tube. There postsurgical changes in the distal stomach. There is persisting induration and small fluid pockets in the mesentery in the right upper quadrant. There are small bilateral pleural effusions. Impression Perforated scarred duodenal ulcer (bulb toward 2nd portion of duodenum) POD6 Exploratory Laparotomy, Omental patch closure of perforation, lateral internal duodenostomy, Pyloric Exclusion, Feeding jejunostomy Bilateral Chest Tube placement for bilateral pneumothorax L Subclavian TLC placement - discontinued Patient has a large friable duodenal bulb ulcer with a scarred in duodenum not amenable to resection or repair. Pyloric exclusion, lateral duodenostomy tube and a feeding jejunostomy tube was then placed. There is a significant change now. On review of the CT scan I think the duodenostomy to has been displaced from its position is is now out of the duodenum. He is draining in seems fairly adequate from the Oziel-Gilbert drain nearby. He is not showing any signs of sepsis but certainly is having discomfort from the drainage of the bilious material. His father and sister are at the bedside with him. Discussed the situation with all of them. Unfortunately there is no good options both operative and nonoperative and both will have it sewn drawback. Infected drain amount can be controlled with the Oziel-Gilbert drain, non-operative therapy with TPN and possibly placing a cholecystostomy tube (unfortunately a PTC drain is not an option now that we do not have interventional radiology) to dive for the bile out of the duodenum may be an option. Operative option will include trying to place back to duodenal colostomy tube in its place and trying to assess the healing of the primary duodenal perforation. Other options discussed in the literature would include a serosal flap, pulling up a Natalia limb to suture to the perforation. He is postop day 7 and even if we go back and we may not be able to do this safely in his current postoperative state. Since he is not showing any signs of sepsis like to observe the amount of drainage at least overnight and shiela through the options and possibly discuss with my other surgical colleagues and radiology colleagues what we can provide for him. Plan / VTE VTE Prophylaxis Ordered?: Yes Plan / Urinary Catheter Urinary Catheter: D/C Davis Reason for insertion/continuin: Critical Pt monitoring ORA SIMPSON MD Aug 23, 2017 03:56
[2017-08-23] MEDS: OCTREOTIDE ACETATE 100 MCG/ML VIAL (J2354) SC SCH ×3 (05:56→22:49)
[2017-08-23] MEDS: NORCO, ANEXSIA 5/325MG TABLET (HYDROcodone/ACETAMINOPHEN) PO PRN (05:56)
[2017-08-23] MEDS: IPRATROPIUM 0.5MG/ALBUTEROL 2.5MG INH SOL UD 3ML (DUONEB)(J7620) NEB SCH ×4 (07:11→21:41)
[2017-08-23 09:14] LABS: ALBUMIN/GLOBULIN RATIO 0.69 (1.00-1.93); ALKALINE PHOSPHATASE 120 U/L (45-117); ALT/SGPT 79 U/L (12-78); ANION GAP 8 MEQ/L (8-16); AST/SGOT 46 U/L (15-37); BILIRUBIN,TOTAL 1.4 MG/DL (0.2-1.0); BLOOD UREA NITROGEN 22 MG/DL (7-18); CALCIUM LEVEL 7.8 MG/DL (8.8-10.2); CARBON DIOXIDE LEVEL 25 MEQ/L (21-32); CHLORIDE LEVEL 100 MEQ/L (98-107); CREATININE FOR GFR 0.62 MG/DL (0.70-1.30); GLOMERULAR FILTRATION RATE > 60.0 (>49); GLUCOSE, FASTING 94 MG/DL (80-110); POTASSIUM SERUM 4.7 MEQ/L (3.5-5.1); SODIUM LEVEL 133 MEQ/L (136-145); TOTAL PROTEIN 4.9 GM/DL (6.4-8.2)
[2017-08-23] MEDS: MORPHINE 4 MG/ML 1ML SYRINGE IV PRN (09:18)
[2017-08-23] MEDS: PANTOPRAZOLE 40MG INJ (PROTONIX) (C9113) IV SCH ×2 (09:34→22:26)
[2017-08-23] MEDS: ISOSORBIDE MON. (IMDUR) 30 MG XR TAB PO SCH (09:35)
[2017-08-23] MEDS: METOPROLOL TART 25 MG TABLET PO SCH ×2 (09:35→22:27)
[2017-08-23] MEDS: VITAMIN D 1,000 INTERNATIONAL UNITS TABLET PO SCH (09:36)
[2017-08-23] MEDS: MULTIVITAMINS/MINERALS THERAP 1 TAB PO SCH (09:36)
[2017-08-23] MEDS ORDERED: PROPOFOL 200 MG/20 ML VIAL As Ordered ONE (12:56)
[2017-08-23] MEDS ORDERED: ROCURONIUM BROMIDE 50 MG/5 ML VIAL As Ordered ONE ×2 (12:57→14:17)
[2017-08-23] MEDS ORDERED: LIDOCAINE 2% INJ 100 MG/5 ML SDV (FOR ANES.) As Ordered ONE (12:57)
[2017-08-23] MEDS ORDERED: ONDANSETRON 4MG/2ML VIAL (J2405) As Ordered ONE (12:58)
[2017-08-23] MEDS ORDERED: fentaNYL 250 MCG/5 ML INJECTION (J3010) As Ordered ONE (12:59)
[2017-08-23] MEDS ORDERED: MIDAZOLAM INJ 2 MG/2 ML VIAL (J2250) As Ordered ONE (13:00)
[2017-08-23] MEDS ORDERED: SUCCINYLCHOLINE 100 MG/5 ML SYRINGE (J0330) As Ordered ONE (13:30)
[2017-08-23] MEDS ORDERED: HYDROmorphone HCL 2 MG/ML 1ML VIAL (J1170) As Ordered ONE (15:46)
[2017-08-23] MEDS ORDERED: dexameTHASONE 4 MG/ML 1ML VIAL (J1100) As Ordered ONE (16:05)
[2017-08-23] MEDS ORDERED: ePHEDrine SULFATE 25 MG/5 ML(5MG/ML) SYRINGE As Ordered ONE (16:50)
[2017-08-23] MEDS ORDERED: PHENYLEPHRINE INJ 10MG/ML VIAL (J2370) As Ordered ONE ×2 (16:52→16:53)
[2017-08-23] MEDS ORDERED: ERTAPENEM 1 GM INJ (INVanz) (J1335) As Ordered ONE (16:55)
[2017-08-23] MEDS: ERTAPENEM SODIUM 1 GM in NS MINI-BAG PLUS 50 ML IV SCH (17:00)
[2017-08-23] MEDS ORDERED: NEOSTIGMINE 10 MG/10 ML VIAL (J2710) As Ordered ONE (17:11)
[2017-08-23] MEDS ORDERED: GLYCOPYRROLATE INJ 0.2 MG/ML 2 ML VIAL As Ordered ONE (17:11)
[2017-08-23] MEDS ORDERED: NS 1,000 ML IV SCH (17:53)
[2017-08-23] MEDS ORDERED: EPIDURAL/PCA KEYS XX PRN (18:00)
[2017-08-23] MEDS ORDERED: FLUCONAZOLE 200 MG in APPROPRIATE DILUENT 1 EA IV ONE (18:00)
[2017-08-23] MEDS ORDERED: NALOXONE INJ 0.4 MG/1 ML VIAL (J2310) IV PRN (18:00)
[2017-08-23] MEDS ORDERED: ONDANSETRON 4MG/2ML VIAL (J2405) IV PRN ×2 (18:00→18:30)
[2017-08-23] MEDS ORDERED: NALBUPHINE HCL 10 MG/ML AMP (J2300) IV PRN (18:00)
[2017-08-23] MEDS ORDERED: diphenhydrAMINE INJ 50MG/ML VIAL (J1200) IV PRN (18:00)
[2017-08-23] MEDS ORDERED: fentaNYL 100 MCG/2 ML INJECTION (J3010) As Ordered ONE (18:24)
[2017-08-23] MEDS ORDERED: MORPHINE 1MG/ML IN 0.9% NACL 100ML IV BAG As Ordered ONE (18:25)
[2017-08-23] MEDS: fentaNYL 100 MCG/2 ML INJECTION (J3010) IV PRN ×4 (18:27→18:46)
[2017-08-23] MEDS ORDERED: LR 1,000 ML IV SCH (18:30)
[2017-08-23] MEDS: ENOXAPARIN 40 MG/0.4 ML SYRINGE (J1650) SC SCH (22:27)
[2017-08-23] MEDS: ATORVASTATIN 20 MG TAB PO SCH (22:27)
[2017-08-24] VITALS (13 sets, daily range): BP systolic 96–133; BP diastolic 51–65
[2017-08-24] MEDS: LR 1,000 ML IV SCH (04:00)
[2017-08-24 04:58] LABS: LEFT SHIFT POS FLAG; MEAN CORPUSCULAR HEMOGLOBIN 32.5 pg (27.0-33.0); MEAN CORPUSCULAR HGB CONC 33.9 g/dl (32.0-36.5); PLATELET COUNT, AUTOMATED 293 10^3/uL (150-450); RED CELL DISTRIBUTION WIDTH 13.7 % (11.5-14.5); WHITE BLOOD COUNT 19.6 10^3/uL (4.0-10.0)
[2017-08-24] MEDS: OCTREOTIDE ACETATE 100 MCG/ML VIAL (J2354) SC SCH ×3 (05:03→21:20)
[2017-08-24 05:06] LABS: ADD MANUAL DIFFER YES; DIFF SLIDE NUMBER 89
[2017-08-24 05:26] LABS: ALBUMIN 1.8 GM/DL (3.2-5.2); ALBUMIN/GLOBULIN RATIO 0.47 (1.00-1.93); ALKALINE PHOSPHATASE 102 U/L (45-117); ALT/SGPT 83 U/L (12-78); ANION GAP 8 MEQ/L (8-16); AST/SGOT 55 U/L (15-37); BILIRUBIN,TOTAL 1.9 MG/DL (0.2-1.0); BLOOD UREA NITROGEN 22 MG/DL (7-18); CARBON DIOXIDE LEVEL 25 MEQ/L (21-32); CHLORIDE LEVEL 100 MEQ/L (98-107); CREATININE FOR GFR 0.87 MG/DL (0.70-1.30); GLOMERULAR FILTRATION RATE > 60.0 (>49); GLUCOSE, FASTING 122 MG/DL (80-110); SODIUM LEVEL 133 MEQ/L (136-145); TOTAL PROTEIN 5.6 GM/DL (6.4-8.2)
[2017-08-24 05:30] LABS: POTASSIUM SERUM 5.2 MEQ/L (3.5-5.1)
[2017-08-24 05:59] LABS: BANDS 1 % (< 11); BASOPHILS 1 % (0-4)
[2017-08-24] MEDS: IPRATROPIUM 0.5MG/ALBUTEROL 2.5MG INH SOL UD 3ML (DUONEB)(J7620) NEB SCH ×4 (07:55→19:58)
[2017-08-24] MEDS: NS 1,000 ML IV SCH ×3 (08:01→17:49)
--- NOTE | 2017-08-24 08:11 | IPNPDOC ---
Subjective General Date/Time Seen The patient was seen on 08/24/17 at 08:02. Subject Chief Complaint/History The patient is a 66-year-old male admitted with a reason for visit of Perforated Duodenal Ulcer. He was brought back to the operating room yesterday with washout of his abdomen. It looks like he had a a uli loop obstruction dislodging the lateral internal duodenostomy tube causing leakage of bilious material of over 1 L 2 nights prior. He had repair of the duodenostomy hole and I placed a retrograde gastrojejunostomy tube to try to drain the duodenal contents away from the original perforation and now the repaired duodenal ostomy hole. Unfortunately this has not been working as I intended is only a small amount of drainage from the gastrostomy port. He is draining mixed brownish in bilious fluid from the YORDY drain at the right upper quadrant. He remains hemodynamically stable. Current Medications Current Medications Current Medications Acetaminophen (Tylenol Tab) 650 mg Q4HP PRN PO MILD PAIN or TEMP > 101; Start 08/15/17 at 23:15; Stop 09/14/17 at 23:14 Acetaminophen/ Hydrocodone Bitart ([place], Anexsia 5/325) 1 tab Q4HP PRN PO MILD /MODERATE PAIN (PS 1-7); Start 08/20/17 at 11:45; Stop 08/23/17 at 20:45; Status DC Acetaminophen/ Hydrocodone Bitart ([place], Anexsia 5/325) 2 tab Q4HP PRN PO SEVERE PAIN (PS 8-10) Last administered on 08/23/17 05:56; Start 08/20/17 at 11:45; Stop 08/23/17 at 20:45; Status DC Albuterol Sulfate (Proventil Neb) 2.5 mg Q2HP PRN NEB SHORTNESS OF BREATH; Start 08/16/17 at 00:00; Stop 09/15/17 at 00:00 Albuterol/ Ipratropium (Duoneb (Ipr 0.5mg/Alb 2.5mg)) 3 ml RQ4H NEB Last administered on 08/16/17 09:25; Start 08/16/17 at 00:00; Stop 08/16/17 at 10:43 ; Status DC Albuterol/ Ipratropium (Duoneb (Ipr 0.5mg/Alb 2.5mg)) 3 ml RQID NEB Last administered on 08/24/17 07:55; Start 08/16/17 at 12:00; Stop 09/15/17 at 11: 59 Atorvastatin Calcium (Lipitor) 40 mg QHS PO Last administered on 08/23/17 22: 27; Start 08/19/17 at 21:00; Stop 09/18/17 at 20:59 Chlorhexidine Gluconate (Chlorhexidine Gluconate) SWAB/BRUSH ORAL CAVITY BID MT ; Start 08/16/17 at 09:00; Stop 08/16/17 at 10:41; Status DC Cyclobenzaprine HCl (Flexeril) 10 mg DAILY PRN PO MUSCLE SPASMS; Start at 09:30; Stop 09/18/17 at 09:29 Diphenhydramine HCl (Benadryl) 12.5 mg Q4HP PRN IV ITCHING; Start 08/23/17 at 18:00; Stop 09/22/17 at 17:59 Diphenhydramine HCl (Benadryl) 12.5 mg Q4HP PRN IV ITCHING; Start 08/17/17 at 08:00; Stop 08/20/17 at 11:37; Status DC Enoxaparin Sodium (Lovenox) 40 mg DAILY SC Last administered on 08/20/17 08:54 ; Start 08/16/17 at 09:00; Stop 08/21/17 at 19:37; Status DC Enoxaparin Sodium (Lovenox) 40 mg DAILY@2100 SC Last administered on 22:27; Start 08/21/17 at 21:00; Stop 08/26/17 at 20:59 Ertapenem 1 gm/ Sodium Chloride 50 ml @ 100 mls/hr Q24H IV Last administered on 08/22/17 17:30; Start 08/16/17 at 17:00; Stop 08/30/17 at 16:59 Fat Emulsion Intravenous 500 ml @ 20 mls/hr ONCE@1800 IV ; Start 08/24/17 at 18:00; Stop 08/25/17 at 17:59 Fentanyl Citrate (Sublimaze) 25 mcg Q5MP PRN IV MODERATE PAIN (PS 4-7) Last administered on 08/23/17 18:46; Start 08/23/17 at 18:30; Stop 08/23/17 at 19 :30; Status DC Fentanyl Citrate (Sublimaze) 25 mcg Q5MP PRN IV MODERATE PAIN (PS 4-7); Start 08/16/17 at 00:00; Stop 08/16/17 at 01:15; Status DC Fluconazole 100 mg/IV Miscellaneous Supplies 50 ml @ 50 mls/hr Q24H IV ; Start 08/24/17 at 18:00; Stop 08/31/17 at 17:59 Heparin Sodium (Heparin Lock Flush 10units/ml) 10 units ASDIRECTED PRN IV SEE LABEL COMMENTS; Start 08/20/17 at 20:45; Stop 08/21/17 at 14:31; Status DC Heparin Sodium (Heparin Lock Flush 10units/ml) 10 units HLF IV Last administered on 08/21/17 05:13; Start 08/20/17 at 22:00; Stop 08/21/17 at 14: 31; Status DC Home Med (Med Rec Complete!) ASDIRECTED XX ; Start 08/15/17 at 16:15; Stop 08/15/17 at 16:15; Status DC Influenza Virus Vaccine (Fluzone High Dose) 0.5 ml ASDIRECTED IM Last administered on 08/19/17 10:15; Start 08/16/17 at 11:15; Stop 08/19/17 at 14:14 ; Status DC Insulin Human Lispro (HumaLOG INSULIN) See Protocol Table Q6H SC ; Start at 18:00; Stop 08/25/17 at 12:01 Isosorbide Mononitrate (Imdur) 30 mg DAILY PO Last administered on 08/23/17 09:35; Start 08/19/17 at 09:00; Stop 09/18/17 at 08:59 Lactated Ringer's 1,000 ml @ 100 mls/hr Q10H IV ; Start 08/23/17 at 18:30; Stop 08/23/17 at 19:30; Status DC Lactated Ringer's 1,000 ml @ 100 mls/hr Q10H IV Last administered on 08:54; Start 08/15/17 at 17:00; Stop 08/20/17 at 11:37; Status DC Lactated Ringer's 1,000 ml @ 100 mls/hr Q10H IV ; Start 08/16/17 at 00:00; Stop 08/16/17 at 01:15; Status DC Lactated Ringer's 1,000 ml @ 200 mls/hr Q5H IV Last administered on 04:00; Start 08/22/17 at 18:00; Stop 08/24/17 at 07:46; Status DC Magnesium Hydroxide (Milk Of Magnesia) 30 ml DAILYPRN PRN PO CONSTIPATION; Start 08/15/17 at 23:15; Stop 09/14/17 at 23:14 Metoprolol Tartrate (Lopressor) 25 mg BID PO Last administered on 08/23/17 22 :27; Start 08/15/17 at 21:00; Stop 09/14/17 at 20:59 Midazolam HCl (Versed) 2 mg Q15MP PRN IV AGITATION Last administered on 05:04; Start 08/16/17 at 00:00; Stop 08/16/17 at 10:41; Status DC Miscellaneous (Unresolved Clarification Entry) SEE LABEL COMMENTS UNRESOLVED XX ; Start 08/21/17 at 00:01; Stop 08/21/17 at 19:37; Status DC Morphine Sulfate (Morphine Sulfate In 0.9%Nacl Iv Bag) Concentration 1 mg/ml ASDIRECTED PRN IV SEE LABEL COMMENTS; Start 08/23/17 at 18:00; Stop 08/30/17 at 17:59 Morphine Sulfate (Morphine Sulfate In 0.9%Nacl Iv Bag) Concentration 1 mg/ml ASDIRECTED PRN IV SEE LABEL COMMENTS Last administered on 08/18/17 18:52; Start 08/17/17 at 08:00; Stop 08/20/17 at 11:37; Status DC Morphine Sulfate (Morphine Sulfate Inj) 2 mg Q2HP PRN IV PAIN Last administered on 08/17/17 06:42; Start 08/16/17 at 00:00; Stop 08/17/17 at 07:53 ; Status DC Morphine Sulfate (Morphine Sulfate Inj) 4 mg Q1H PRN IV SEVERE PAIN (PS 8-10); Start 08/15/17 at 23:15; Stop 08/15/17 at 23:53; Status DC Morphine Sulfate (Morphine Sulfate Inj) 4 mg Q4HP PRN IV SEVERE PAIN (PS 8-10) Last administered on 08/23/17 09:18; Start 08/20/17 at 11:45; Stop 08/23/17 at 17:57; Status DC Multivitamins (Theragram-M) 1 tab DAILY PO Last administered on 08/23/17 09: 36; Start 08/19/17 at 09:00; Stop 09/18/17 at 08:59 Multivitamins 10 ml/Chromium/ Copper/Manganese/ Seleni/Zn 1 ml/ Amino Ac/ Electrol/ Dextrose/Calcium 2,011 ml @ 85 mls/hr ONCE@1800 IV ; Start 08/24/17 at 18:00; Stop 08/25/17 at 17:59 Nalbuphine HCl (Nubain) 2.5 mg Q6HP PRN IV PRURITIS; Start 08/23/17 at 18:00; Stop 08/30/17 at 17:59 Nalbuphine HCl (Nubain) 2.5 mg Q6HP PRN IV PRURITIS; Start 08/17/17 at 08:00; Stop 08/20/17 at 11:37; Status DC Naloxone HCl (Narcan) 0.1 mg Q5MP PRN IV SEE LABEL COMMENTS; Start 08/23/17 at 18:00; Stop 09/22/17 at 17:59 Naloxone HCl (Narcan) 0.1 mg Q5MP PRN IV SEE LABEL COMMENTS; Start 08/17/17 at 08:00; Stop 08/20/17 at 11:37; Status DC Nitroglycerin (Nitrostat (1/ 150)) 0.4 mg Q5MP PRN SL CHEST PAIN; Start at 09:30; Stop 09/18/17 at 09:29 Non-Formulary Medication (Epidural/[employer]/STEWARDESS [place]) USE THIS ENTRY TO VEND ... Q1M PRN XX SEE LABEL COMMENTS; Start 08/23/17 at 18:00; Stop 09/22/17 at 17:59 Non-Formulary Medication (Epidural/CH[employer]F P[employer]EN[employer] STEWARD/STEWARDESS [place]) USE THIS ENTRY TO VEND ... Q1M PRN XX SEE LABEL COMMENTS; Start 08/17/17 at 08:00; Stop 08/20/17 at 11:37; Status DC Octreotide Acetate (SandoSTATIN) 100 mcg Q8H SC Last administered on 05:03; Start 08/20/17 at 14:00; Stop 08/24/17 at 07:37; Status DC Octreotide Acetate (SandoSTATIN) 200 mcg Q8H SC ; Start 08/24/17 at 14:00; Stop 09/23/17 at 13:59 Ondansetron HCl (ZOFRAN INJection) 4 mg Q4HP PRN IV NAUSEA OR VOMITING; Start 08/23/17 at 18:30; Stop 08/23/17 at 19:30; Status DC Ondansetron HCl (ZOFRAN INJection) 4 mg Q4HP PRN IV NAUSEA OR VOMITING; Start 08/16/17 at 00:00; Stop 08/16/17 at 01:15; Status DC Ondansetron HCl (ZOFRAN INJection) 4 mg Q6HP PRN IV NAUSEA; Start 08/23/17 at 18:00; Stop 09/22/17 at 17:59 Ondansetron HCl (ZOFRAN INJection) 4 mg Q6HP PRN IV NAUSEA OR VOMITING; Start 08/15/17 at 23:15; Stop 09/14/17 at 23:14; Status Future Hold Ondansetron HCl (ZOFRAN INJection) 4 mg Q6HP PRN IV NAUSEA; Start 08/17/17 at 08:00; Stop 08/20/17 at 11:37; Status DC Pantoprazole Sodium (Protonix) 40 mg BID IV Last administered on 08/23/17 22: 26; Start 08/23/17 at 21:00; Stop 09/22/17 at 20:59 Pantoprazole Sodium (Protonix) 40 mg BID IV Last administered on 08/23/17 09: 34; Start 08/16/17 at 09:00; Stop 08/23/17 at 17:56; Status DC Pneumococcal Polyvalent Vaccine (Prevnar 13) 0.5 ml ASDIRECTED IM Last administered on 08/19/17 10:16; Start 08/16/17 at 11:15; Stop 08/19/17 at 14:14 ; Status DC Propofol 1000 mg/ IV Miscellaneous Supplies 100 ml @ 6.68 mls/hr [id number] IV Last administered on 08/16/17 05:22; Start 08/15/17 at 23:47; Stop 08/16/17 at 10:41; Status DC Sodium Chloride 1,000 ml @ 15 mls/hr Q24H IV ; Start 08/23/17 at 17:53; Stop 08/24/17 at 07:51; Status DC Sodium Chloride 1,000 ml @ 15 mls/hr Q24H IV ; Start 08/17/17 at 07:49; Stop 08/17/17 at 07:55; Status DC Sodium Chloride 1,000 ml @ 200 mls/hr Q5H IV Last administered on 08/24/17 08:01; Start 08/24/17 at 07:45; Stop 09/23/17 at 07:44 Sodium Chloride (Saline Lock Flush) 10 ml ASDIRECTED PRN IV SEE LABEL COMMENTS ; Start 08/20/17 at 20:45; Stop 08/21/17 at 14:31; Status DC Sodium Chloride (Saline Lock Flush) 10 ml SLF IV Last administered on 05:13; Start 08/20/17 at 22:00; Stop 08/21/17 at 14:31; Status DC Vitamin D (Vitamin D) 1,000 units DAILY PO Last administered on 08/23/17 09: 36; Start 08/19/17 at 09:00; Stop 08/23/17 at 20:45; Status DC Allergies Coded Allergies: Penicillins (Unverified Allergy, Unknown, 04/25/17) Objective Physical Examination Examination GENERAL APPEARANCE: Comfortable. SKIN: Warm and dry. HEENT: Normocephalic, atraumatic. Mildly pale palpebral conjunctiva, anicteric sclerae. Lips and mucosa appear dry. Nasogastric tube in place NECK: Supple, no thyromegaly. No obvious jugular venous distention. LUNGS: Clear to auscultation bilaterally. No wheezing appreciated. HEART: No chest wall abnormalities. Regular rate and rhythm with no murmurs appreciated. ABDOMEN: Abdomen is round, soft, moderately distended. Midline incision covered with dry gauze dressing, clean and dry. Right-sided drain includes a flat YORDY drain over the right upper quadrant area draining mixed serosanguineous with a tinge of bile. Jejunostomy catheter on the left side is capped. A gastrojejunostomy catheter also on the left side is hooked to suction. Not much drainage from it.. EXTREMITIES: Extremities have no deformities. No edema identified. Vital Signs Vital Signs Date Time Temp Pulse Resp B/P (MAP) Pulse Ox O2 Delivery O2 Flow Rate FiO2 08/24/17 05:00 69 101/54 (70) 97 Nasal Cannula 3.0 08/24/17 04:00 97.4 16 Laboratory Data Labs 24H Laboratory Tests 2 08/24/17 04:36: Nucleated Red Blood Cells % (auto) 0.0, Neutrophils 93H, Band Neutrophils 1, Lymphocytes (Manual) 1L, Monocytes (Manual) 4, Basophils (Manual) 1, Platelet Estimate NORMAL, Red Blood Cell Morphology NORMAL, Anion Gap 8, Glomerular Filtration Rate > 60.0, Blood Urea Nitrogen 22H, Creatinine 0.87, Sodium Level 133L, Potassium Level 5.2H, Chloride Level 100, Carbon Dioxide Level 25, Calcium Level 8.0L, Aspartate Amino Transf (AST/SGOT) 55H, Alanine Aminotransferase (ALT/SGPT) 83H, Alkaline Phosphatase 102, Total Bilirubin 1.9H , Total Protein 5.6L, Albumin 1.8L, Albumin/Globulin Ratio 0.47L CBC/BMP Laboratory Tests 08/24/17 04:36 Red Blood Count 3.97 L, Mean Corpuscular Volume 96.0, Mean Corpuscular Hemoglobin 32.5, Mean Corpuscular Hemoglobin Concent 33.9, Red Cell Distribution Width 13.7, Calcium Level 8.0 L, Aspartate Amino Transf (AST/SGOT) 55 H, Alanine Aminotransferase (ALT/SGPT) 83 H, Alkaline Phosphatase 102, Total Bilirubin 1.9 H, Total Protein 5.6 L, Albumin 1.8 L Microbiology Microbiology 08/23/17 Anaerobic Culture, Received Pending 08/15/17 Body Fluid Culture - Final, Complete Propionibacterium Acnes 08/15/17 Anaerobic Culture - Final, Complete 08/23/17 Wound Culture, Received Pending Impression Perforated scarred duodenal ulcer (bulb toward 2nd portion of duodenum) POD9 Exploratory Laparotomy, Omental patch closure of perforation, lateral internal duodenostomy, Pyloric Exclusion, Feeding jejunostomy Bilateral Chest Tube placement for bilateral pneumothorax - resolved L Subclavian TLC placement - discontinued POD1 Re-exploration Repair of site of duodenostomy - site of leak, retrograde gastrojejunostomy to duodenum (for drainage), washout of abdomen He had an afferent loop obstruction picture, I think, which increased pressure on the duodenum and dislodged the duodenostomy tube. The site of original perforation still have the intact omental patch but as expected still have some leak around the patch. He is stable overnight. We still have some leakage at the duodenal site but so far controlled. Not much coming out of the gastrojejunostomy drain as well as NGT. I neptali get an xray to check if the gastrojejunostomy drain still is in the right position. I will increase Ocreotide dose Will place PICC line and start on TPN, keep him NPO until we have adequate control of the duodenal leak Continue with antibiotics - I added diflucan yesterday. Plan / VTE VTE Prophylaxis Ordered?: Yes Plan / Urinary Catheter Urinary Catheter: D/C Davis Reason for insertion/continuin: Critical Pt monitoring ORA SIMPSON MD Aug 24, 2017 08:11
[2017-08-24] MEDS: ISOSORBIDE MON. (IMDUR) 30 MG XR TAB PO SCH (08:29)
[2017-08-24] MEDS: MULTIVITAMINS/MINERALS THERAP 1 TAB PO SCH (08:29)
[2017-08-24] MEDS: METOPROLOL TART 25 MG TABLET PO SCH ×2 (08:29→21:20)
[2017-08-24] MEDS: PANTOPRAZOLE 40MG INJ (PROTONIX) (C9113) IV SCH ×2 (08:30→21:19)
--- NOTE | 2017-08-24 14:29 | REP ---
Supine abdomen two views: The bowel gas pattern is normal. There are multiple surgical drains and tubes. There are midline longitudinal surgical skin amisha. Skeletal structures and soft tissues are otherwise unremarkable. Signed by Collin Weinstein MD 08/24/2017 02:21 P
[2017-08-24] MEDS: ERTAPENEM SODIUM 1 GM in NS MINI-BAG PLUS 50 ML IV SCH (16:15)
[2017-08-24] MEDS: FLUCONAZOLE 100 MG in APPROPRIATE DILUENT 1 EA IV SCH (17:16)
[2017-08-24] MEDS: HumaLOG INSULIN (NovoLOG) PER UNIT SC SCH (17:48)
[2017-08-24] MEDS: SODIUM CHLORIDE 0.9% INJ 10 ML SYR IV SCH (17:48)
[2017-08-24] MEDS ORDERED: MULTIVITAMIN -ADULT INJECTION 10 ML, CR/CU/SE/MN/ZN INJ 1 ML in AMINO AC/ELECTROLYTE/DE... IV SCH (18:00)
[2017-08-24] MEDS ORDERED: FAT EMULSION IV 20% 500 ML IV SCH (18:00)
--- NOTE | 2017-08-24 19:26 | REP ---
Procedure: PICC line insertion with Sonia-Kevyn The procedure was performed under the direct supervision of Dr. Domingo. The risks and benefits of the procedure were explained to the patient and informed consent was obtained. The right basilic vein was localized using ultrasound guidance. The skin was prepped and draped in a sterile fashion. 2% lidocaine was used as a local anesthetic. Using ultrasound guidance the basilic vein was cannulated and a 0.018 guidewire was inserted and advanced to the SVC using fluoroscopic guidance. The needle was removed and a 5.5 Israeli dilator and peel-away sheath was inserted over the guide wire. A 5.5 Israeli dual lumen catheter was cut to length of 42 cm. The dilator was removed and the catheter was inserted over the guide wire with the tip ending in the SVC. The peel-away sheath was removed and the catheter was flushed with heparinized saline as per Hospital protocol. The catheter was affixed to the skin and a sterile dressing was applied. The the patient tolerated the procedure well and there were no immediate complications. 1.1 minutes of fluoro time was utilized for this procedure. Reviewed by NADINE Page 08/24/2017 05:29 PSigned by Tim Domingo MD 08/24/2017 07:16 P
[2017-08-24] MEDS: ATORVASTATIN 20 MG TAB PO SCH (21:19)
[2017-08-24] MEDS: ENOXAPARIN 40 MG/0.4 ML SYRINGE (J1650) SC SCH (21:21)
[2017-08-25] VITALS (7 sets, daily range): BP systolic 121–153; BP diastolic 58–81
[2017-08-25] MEDS: HumaLOG INSULIN (NovoLOG) PER UNIT SC SCH ×4 (00:12→18:25)
[2017-08-25 05:10] LABS: BASO % 0.2 % (0.0-1.0); EOS % 0.2 % (0.0-3.0); IMMATURE GRANULOCYTE % 1.1 % (0-0); LYMPH # 1.3 10^3/uL (1.5-4.5); LYMPH % 7.8 % (24.0-44.0); MEAN CORPUSCULAR HEMOGLOBIN 31.9 pg (27.0-33.0); MEAN CORPUSCULAR HGB CONC 32.9 g/dl (32.0-36.5); MEAN CORPUSCULAR VOLUME 97.2 fl (80.0-96.0); MONO # 0.7 10^3/uL (0.0-0.8); MONO % 4.1 % (0.0-5.0); NEUTROPHILS # 14.1 10^3/uL (1.8-7.7); NEUTROPHILS % 86.6 % (36.0-66.0); PLATELET COUNT, AUTOMATED 289 10^3/uL (150-450); RED CELL DISTRIBUTION WIDTH 13.9 % (11.5-14.5); WHITE BLOOD COUNT 16.3 10^3/uL (4.0-10.0)
[2017-08-25 05:34] LABS: ALBUMIN 1.7 GM/DL (3.2-5.2); ALBUMIN/GLOBULIN RATIO 0.52 (1.00-1.93); ALKALINE PHOSPHATASE 115 U/L (45-117); ALT/SGPT 66 U/L (12-78); ANION GAP 4 MEQ/L (8-16); AST/SGOT 48 U/L (15-37); BLOOD UREA NITROGEN 20 MG/DL (7-18); CALCIUM LEVEL 7.3 MG/DL (8.8-10.2); CARBON DIOXIDE LEVEL 30 MEQ/L (21-32); CHLORIDE LEVEL 102 MEQ/L (98-107); CREATININE FOR GFR 0.83 MG/DL (0.70-1.30); GLOMERULAR FILTRATION RATE > 60.0 (>49); GLUCOSE, FASTING 150 MG/DL (80-110); POTASSIUM SERUM 4.6 MEQ/L (3.5-5.1); SODIUM LEVEL 136 MEQ/L (136-145)
[2017-08-25] MEDS: OCTREOTIDE ACETATE 100 MCG/ML VIAL (J2354) SC SCH ×3 (05:52→21:36)
[2017-08-25] MEDS: SODIUM CHLORIDE 0.9% INJ 10 ML SYR IV SCH ×2 (05:53→17:14)
[2017-08-25] MEDS: IPRATROPIUM 0.5MG/ALBUTEROL 2.5MG INH SOL UD 3ML (DUONEB)(J7620) NEB SCH ×4 (08:07→20:31)
[2017-08-25] MEDS: METOPROLOL TART 25 MG TABLET PO SCH ×2 (08:22→21:37)
[2017-08-25] MEDS: ISOSORBIDE MON. (IMDUR) 30 MG XR TAB PO SCH (08:23)
[2017-08-25] MEDS: PANTOPRAZOLE 40MG INJ (PROTONIX) (C9113) IV SCH ×2 (08:23→21:36)
--- NOTE | 2017-08-25 12:37 | IPN ---
DATE: 08/25/2017 The patient remains in the intensive care unit 10 days postoperative from an exploratory laparotomy with patch repair of a perforated duodenal ulcer and placement of a duodenostomy with pyloric exclusion. He is two days postoperative from exploratory laparotomy with removal of the duodenostomy tube and repair of the duodenotomy and placement of a retrograde gastrojejunostomy tube, all for leakage from the duodenostomy. Dr. Everett reported that there appeared to be some degree of obstruction at the gastrojejunostomy leading to back pressure into the duodenum. He has remained hemodynamically stable over the last 24 hours. Maximum temperature was 99.8 at midnight past. His pulse is ranging from 75-88 and his blood pressure is fine. His intake and output for 08/24/2017 shows 3640 in and 2900 out. Most of the output is urine output with 450 from his collected drains, most of which is from the Oziel-Gilbert in the area of the duodenal repair and repaired duodenotomy. The patient is alert and oriented. He appears fairly comfortable. PHYSICAL EXAMINATION: Heart exam shows a regular rate and rhythm. Lung exam shows clear breath sounds bilaterally. The abdomen is somewhat protuberant. He has bowel sounds present. The abdomen is soft without unexpected tenderness. He has a small caliber drain leaving the right upper quadrant draining lightly bilious fluid to a Oziel-Gilbert bulb. There is a tube in the left upper quadrant which has two ports connected to wall suction. The gastrostomy tube fitting is not fitting well and has had no significant drainage. The attachment to what is labeled the jejunostomy tube fits well, but also has no drainage. Just inferior to this tube is a tube labeled feeding jejunostomy which is capped. He has a midline laparotomy incision with some eliud of material protruding between the amisha. There is only a small amount of drainage on the dressing. Extremities: Show no significant lower extremity edema. He has palpable dorsalis pedis and radial pulses. LABORATORY STUDIES: Show a white count today of 16,000 which is down from 19.6 yesterday. Hemoglobin is 12 with a hematocrit of 35 and his platelet count is 289,000. Differential count shows 87% neutrophils and 8% lymphocytes. Chemistry profile shows normal electrolytes with a BUN of 20, creatinine 0.83 and a glucose of 150. Protein is 5.0 with an albumin of 1.7. IMPRESSION: Stable day two postoperative from exploratory laparotomy with closure of his duodenotomy and placement of a retrograde gastrojejunal tube for decompression of the duodenum. PLAN: His tubes do not seem to be functioning well for drainage other than the Oziel-Gilbert drain in the right upper quadrant. This has a diminished output of bilious fluid today compared to yesterday. The gastrojejunal tube which was placed retrograde to try to decompress the duodenum has minimal output from either port. I flushed both of these with a small amount of water and they seem to be patent, but I suspect that the long length and small caliber of the tubes is going to make them not particularly efficient at drainage. I am going to try to fashion a new fitting to connect to the gastrostomy portion of the tube where there has been an air leak at the connection. His urine output is good and his labs are stable. He is on TPN. We will continue his antibiotic coverage for now and monitor his drain outputs. If all works well, then his output of bilious fluid from his right upper quadrant Oziel-Gilbert will diminish and eventually stop, signaling that his duodenal repair and ulcer patch are healing well. The patient will be up out of bed today. We will continue his deep vein thrombosis (DVT) prophylaxis. ALBERTO
[2017-08-25] MEDS: ERTAPENEM SODIUM 1 GM in NS MINI-BAG PLUS 50 ML IV SCH (17:13)
[2017-08-25] MEDS ORDERED: FAT EMULSION IV 20% 500 ML IV SCH (18:00)
[2017-08-25] MEDS ORDERED: AMINO AC/ELECTROLYTE/DEX/CALC 2,000 ML IV SCH (18:00)
[2017-08-25] MEDS: FLUCONAZOLE 100 MG in APPROPRIATE DILUENT 1 EA IV SCH (18:25)
[2017-08-25] MEDS: ENOXAPARIN 40 MG/0.4 ML SYRINGE (J1650) SC SCH (21:36)
[2017-08-26] MEDS: HumaLOG INSULIN (NovoLOG) PER UNIT SC SCH ×5 (00:17→23:43)
[2017-08-26] MEDS: MORPHINE 1MG/ML IN 0.9% NACL 100ML IV BAG IV PRN (02:17)
[2017-08-26 04:00] VITALS: BP 121/63
[2017-08-26] MEDS: SODIUM CHLORIDE 0.9% INJ 10 ML SYR IV SCH ×2 (05:20→17:47)
[2017-08-26] MEDS: OCTREOTIDE ACETATE 100 MCG/ML VIAL (J2354) SC SCH ×3 (05:20→22:09)
[2017-08-26 05:54] LABS: BASO % 0.3 % (0.0-1.0); EOS # 0.1 10^3/uL (0.0-0.50); EOS % 1.1 % (0.0-3.0); IMMATURE GRANULOCYTE % 1.9 % (0-0); LYMPH # 1.4 10^3/uL (1.5-4.5); LYMPH % 11.1 % (24.0-44.0); MEAN CORPUSCULAR HEMOGLOBIN 32.3 pg (27.0-33.0); MEAN CORPUSCULAR HGB CONC 33.4 g/dl (32.0-36.5); MEAN CORPUSCULAR VOLUME 96.5 fl (80.0-96.0); MONO # 0.8 10^3/uL (0.0-0.8); MONO % 6.4 % (0.0-5.0); NEUTROPHILS # 9.7 10^3/uL (1.8-7.7); NEUTROPHILS % 79.2 % (36.0-66.0); PLATELET COUNT, AUTOMATED 287 10^3/uL (150-450); RED CELL DISTRIBUTION WIDTH 13.9 % (11.5-14.5); WHITE BLOOD COUNT 12.2 10^3/uL (4.0-10.0)
[2017-08-26 06:08] LABS: ALBUMIN 1.5 GM/DL (3.2-5.2); ALBUMIN/GLOBULIN RATIO 0.47 (1.00-1.93); ALKALINE PHOSPHATASE 151 U/L (45-117); ALT/SGPT 64 U/L (12-78); ANION GAP 6 MEQ/L (8-16); AST/SGOT 52 U/L (15-37); BILIRUBIN,TOTAL 1.6 MG/DL (0.2-1.0); BLOOD UREA NITROGEN 15 MG/DL (7-18); CALCIUM LEVEL 6.3 MG/DL (8.8-10.2); CARBON DIOXIDE LEVEL 28 MEQ/L (21-32); CHLORIDE LEVEL 103 MEQ/L (98-107); CREATININE FOR GFR 0.57 MG/DL (0.70-1.30); GLOMERULAR FILTRATION RATE > 60.0 (>49); GLUCOSE, FASTING 124 MG/DL (80-110); POTASSIUM SERUM 4.5 MEQ/L (3.5-5.1); SODIUM LEVEL 137 MEQ/L (136-145); TOTAL PROTEIN 4.7 GM/DL (6.4-8.2)
[2017-08-26] MEDS: IPRATROPIUM 0.5MG/ALBUTEROL 2.5MG INH SOL UD 3ML (DUONEB)(J7620) NEB SCH ×4 (07:33→19:41)
[2017-08-26 08:00] VITALS: BP 142/88
[2017-08-26] MEDS: PANTOPRAZOLE 40MG INJ (PROTONIX) (C9113) IV SCH ×2 (09:37→22:09)
[2017-08-26] MEDS: ISOSORBIDE MON. (IMDUR) 30 MG XR TAB PO SCH (09:38)
[2017-08-26] MEDS: METOPROLOL TART 25 MG TABLET PO SCH ×2 (09:38→22:09)
[2017-08-26] MEDS: NS 1,000 ML IV SCH ×2 (11:59→17:47)
[2017-08-26 12:00] VITALS: BP 118/57
--- NOTE | 2017-08-26 15:13 | IPN ---
DATE: 08/26/2017 HISTORY: The patient is now 11 days postoperative from exploratory lap for a perforated duodenal ulcer and 3 days postoperative from reexploration and repair of a duodenotomy and placement of a retrograde gastrojejunal drain. The patient appears to have done well over the past 24 hours. He reports some pain in the right side of the abdomen at times but seems to be using less pain medication. VITAL SIGNS: The patient is afebrile for the past 24 hours. Pulse 70-73, respirations 15-18, and a blood pressure that is acceptable. Intake and output 08/25/2017, intake 3000, output 3800 with 775 of gastric drainage and 520 from his drain in the right side of the abdomen. Today he has had less nasogastric (NG) output so far at 175 mL with 205 from his drain. He has a minimal amount perhaps 10 mL of bile in the drain bulb that was attached to the jejunostomy tube on the left. There has been none from the gastrostomy portion of the tube. PHYSICAL EXAMINATION: The patient is alert and oriented. Heart exam shows a regular rhythm at about 70. The lungs show generally clear breath sounds. The abdomen is somewhat protuberant. I removed his midline dressing today and removed a number of Telfa eliud that were in his incision. The wound was then washed with Hibiclens and dressed with Adaptic and gauze. The dressing was removed from the drain in the right upper quadrant and this was replaced with a CHG Tegaderm. He remains somewhat tender in the right midabdomen laterally with some firmness in this area, though the left side of the abdomen is soft. He does have some bowel sounds present. LABORATORY STUDIES: White count today 12.2 with differential showing 79% neutrophils, 11 lymphocytes and 6 monocytes. Hemoglobin 10, hematocrit 30 and platelet count 287,000. Chemistry profile shows sodium 137, potassium 4.5, chloride 103, CO2 of 28, BUN of 15, creatinine 0.6, glucose of 124. Calcium is 6.3 with total bilirubin of 1.6. Total protein is 4.7 with an albumin of 1.5. Fingerstick blood sugars range between 139 and 176. IMPRESSION: The patient appears to be doing slightly better. His right upper quadrant drain has less output today, though it remains clearly bilious. We have not been able to utilize the retrograde gastrojejunal drain to drain any significant amount of fluid from the gastrointestinal (GI) tract. The nasogastric (NG) output also seems to be somewhat diminished today which is probably a positive sign. His wound looks good at this point. PLAN: I will continue his antibiotics for now. His drains will remain in place as they are. His total parenteral nutrition (TPN) will be continued for nutritional support. He is encouraged to get out of bed and advance his activity level as tolerated. We will continue his patient controlled analgesic (SNUFF GRINDER) for now as he will be unable to take an oral medications for the foreseeable future. ALBERTO
[2017-08-26 16:00] VITALS: BP 128/60
[2017-08-26] MEDS: ERTAPENEM SODIUM 1 GM in NS MINI-BAG PLUS 50 ML IV SCH (16:39)
[2017-08-26] MEDS: FLUCONAZOLE 100 MG in APPROPRIATE DILUENT 1 EA IV SCH (17:46)
[2017-08-26] MEDS ORDERED: FAT EMULSION IV 20% 500 ML IV SCH (18:00)
[2017-08-26] MEDS ORDERED: AMINO AC/ELECTROLYTE/DEX/CALC 2,000 ML IV SCH (18:00)
[2017-08-26 20:00] VITALS: BP 131/65
[2017-08-26] MEDS: ENOXAPARIN 40 MG/0.4 ML SYRINGE (J1650) SC SCH (22:08)
[2017-08-26 23:00] VITALS: BP 128/61
[2017-08-27 05:05] VITALS: BP 135/67
[2017-08-27 05:32] LABS: MEAN CORPUSCULAR HEMOGLOBIN 32.1 pg (27.0-33.0); MEAN CORPUSCULAR HGB CONC 33.9 g/dl (32.0-36.5); MEAN CORPUSCULAR VOLUME 94.8 fl (80.0-96.0); PLATELET COUNT, AUTOMATED 316 10^3/uL (150-450); POSITIVE MORPH POS FLAG; RED CELL DISTRIBUTION WIDTH 13.7 % (11.5-14.5); WHITE BLOOD COUNT 11.2 10^3/uL (4.0-10.0)
[2017-08-27 05:33] LABS: ADD MANUAL DIFFER YES; DIFF SLIDE NUMBER 44
[2017-08-27 05:48] LABS: ALBUMIN 1.6 GM/DL (3.2-5.2); ALBUMIN/GLOBULIN RATIO 0.43 (1.00-1.93); ALKALINE PHOSPHATASE 191 U/L (45-117); ALT/SGPT 73 U/L (12-78); ANION GAP 8 MEQ/L (8-16); AST/SGOT 58 U/L (15-37); BILIRUBIN,TOTAL 1.6 MG/DL (0.2-1.0); BLOOD UREA NITROGEN 14 MG/DL (7-18); CALCIUM LEVEL 7.3 MG/DL (8.8-10.2); CARBON DIOXIDE LEVEL 25 MEQ/L (21-32); CHLORIDE LEVEL 99 MEQ/L (98-107); CREATININE FOR GFR 0.61 MG/DL (0.70-1.30); GLOMERULAR FILTRATION RATE > 60.0 (>49); GLUCOSE, FASTING 123 MG/DL (80-110); POTASSIUM SERUM 4.7 MEQ/L (3.5-5.1); SODIUM LEVEL 132 MEQ/L (136-145); TOTAL PROTEIN 5.3 GM/DL (6.4-8.2)
[2017-08-27] MEDS: SODIUM CHLORIDE 0.9% INJ 10 ML SYR IV SCH ×2 (06:00→17:17)
[2017-08-27 06:07] LABS: EOSINOPHILS 2 % (0-5)
[2017-08-27] MEDS: OCTREOTIDE ACETATE 100 MCG/ML VIAL (J2354) SC SCH ×3 (06:19→21:01)
[2017-08-27] MEDS: HumaLOG INSULIN (NovoLOG) PER UNIT SC SCH ×3 (06:26→17:01)
[2017-08-27 08:00] VITALS: BP 131/69
[2017-08-27] MEDS: IPRATROPIUM 0.5MG/ALBUTEROL 2.5MG INH SOL UD 3ML (DUONEB)(J7620) NEB SCH ×4 (08:21→20:25)
[2017-08-27] MEDS: ISOSORBIDE MON. (IMDUR) 30 MG XR TAB PO SCH (08:26)
[2017-08-27] MEDS: METOPROLOL TART 25 MG TABLET PO SCH ×2 (08:26→20:59)
[2017-08-27] MEDS: PANTOPRAZOLE 40MG INJ (PROTONIX) (C9113) IV SCH ×2 (08:26→21:00)
--- NOTE | 2017-08-27 10:04 | IPN ---
DATE OF SERVICE: 08/27/2017 The patient is now 12 days postop from initial surgery for a perforated duodenal ulcer and 4 days postop from a second operation for leakage of bile around the duodenostomy tube. He has done fairly well the last 24 hours. He has been moved to the PCU from the ICU. VITAL SIGNS: T-max was 100.5 at 4 o'clock yesterday but he is 98.8 this morning. His pulse is in the 70s, respirations are normal and his blood pressure is fine. Intake and output on 08/26 were 3000 in and 2800 out. Urine output was 2000 with NG output of 350 and drainage from his right flank drain which drains the area of his repaired duodenotomy of 425. He has little to no drainage from the retrograde gastrojejunostomy on the left. PHYSICAL EXAMINATION: The patient is alert and oriented. He is very pleasant. Sclerae are anicteric. Skin turgor is good. Mucous membranes are moist. The heart exam shows a regular rhythm and the lungs are clear. His abdominal incision looks good with several small open areas where he had Telfa eliud removed yesterday. The drain in the right side of the abdomen is putting out some bilious fluid. The jejunostomy tube on the left in the lower position is capped and the retrograde gastrojejunostomy tube has minimal, perhaps a few mL of bile in the drain attached to the gastrostomy port. There is nothing from the jejunostomy port. The abdomen is generally soft. He does have some bowel sounds present. He remains tender particularly in the far lateral right lower quadrant. LABORATORY STUDIES: His white count today is 11,000 with hemoglobin 11, hematocrit 31 and platelet count of 316,000. He has 82% neutrophils, 11% lymphocytes. Chemistry profile shows normal electrolytes with the exception of a sodium of 132. BUN is 14 with a creatinine of 0.6 and his glucose is 123. Total protein is 5.3, albumin is 1.6. IMPRESSION: The patient overall appears to be doing well. His white blood cell count continues to fall and his hematocrit has actually come up a point in the last day. His electrolytes were good and his renal function remains normal. His total protein and albumin are stable to slightly increased. He remains on total parenteral nutrition. PLAN: I discussed with the patient the possibility of removing his Davis catheter which is about the only tube we could give up at this point and he requests that we leave this another day until he is a little more mobile. I will decrease his TPN to the minimal allowed and begin some half-strength Jevity feedings through the jejunostomy tube on the left. I will get a KUB today to check the position of his various drains and catheters. I will continue the NG tube for now although we should be able to remove this soon. He remains on antibiotics and I will continue these for now. ALBERTO
[2017-08-27 12:00] VITALS: BP 119/58
[2017-08-27 16:00] VITALS: BP 134/62
[2017-08-27] MEDS: ERTAPENEM SODIUM 1 GM in NS MINI-BAG PLUS 50 ML IV SCH (16:38)
[2017-08-27] MEDS: FLUCONAZOLE 100 MG in APPROPRIATE DILUENT 1 EA IV SCH (17:16)
[2017-08-27] MEDS: NS 1,000 ML IV SCH (17:39)
[2017-08-27] MEDS ORDERED: MULTIVITAMIN -ADULT INJECTION 10 ML, CR/CU/SE/MN/ZN INJ 1 ML in AMINO AC/ELECTROLYTE/DE... IV SCH (18:00)
[2017-08-27] MEDS ORDERED: FAT EMULSION IV 20% 500 ML IV SCH (18:00)
[2017-08-27 19:56] VITALS: BP 139/71
[2017-08-27] MEDS: ENOXAPARIN 40 MG/0.4 ML SYRINGE (J1650) SC SCH (21:00)
[2017-08-27 23:59] VITALS: BP 128/66
[2017-08-28] MEDS: HumaLOG INSULIN (NovoLOG) PER UNIT SC SCH ×4 (00:54→18:02)
[2017-08-28 04:00] VITALS: BP 157/105
[2017-08-28] MEDS: SODIUM CHLORIDE 0.9% INJ 10 ML SYR IV SCH ×2 (06:00→18:00)
[2017-08-28] MEDS: OCTREOTIDE ACETATE 100 MCG/ML VIAL (J2354) SC SCH ×3 (06:26→21:52)
[2017-08-28 06:46] LABS: MEAN CORPUSCULAR VOLUME 94.1 fl (80.0-96.0); PLATELET COUNT, AUTOMATED 323 10^3/uL (150-450); RED CELL DISTRIBUTION WIDTH 13.5 % (11.5-14.5); WHITE BLOOD COUNT 9.7 10^3/uL (4.0-10.0)
[2017-08-28 06:47] LABS: ADD MANUAL DIFFER YES; DIFF SLIDE NUMBER 24; POSITIVE MORPH POS FLAG
[2017-08-28] MEDS: IPRATROPIUM 0.5MG/ALBUTEROL 2.5MG INH SOL UD 3ML (DUONEB)(J7620) NEB SCH ×4 (07:03→19:26)
[2017-08-28 07:10] VITALS: BP 118/67
[2017-08-28 07:24] LABS: ALBUMIN 1.8 GM/DL (3.2-5.2); ALBUMIN/GLOBULIN RATIO 0.43 (1.00-1.93); ALKALINE PHOSPHATASE 194 U/L (45-117); ALT/SGPT 74 U/L (12-78); ANION GAP 7 MEQ/L (8-16); AST/SGOT 55 U/L (15-37); BILIRUBIN,TOTAL 1.8 MG/DL (0.2-1.0); BLOOD UREA NITROGEN 14 MG/DL (7-18); CALCIUM LEVEL 7.8 MG/DL (8.8-10.2); CARBON DIOXIDE LEVEL 27 MEQ/L (21-32); CHLORIDE LEVEL 98 MEQ/L (98-107); CREATININE FOR GFR 0.64 MG/DL (0.70-1.30); GLOMERULAR FILTRATION RATE > 60.0 (>49); GLUCOSE, FASTING 115 MG/DL (80-110); POTASSIUM SERUM 4.4 MEQ/L (3.5-5.1); SODIUM LEVEL 132 MEQ/L (136-145)
[2017-08-28 07:44] LABS: BANDS 2 % (< 11); BASOPHILS 2 % (0-4)
[2017-08-28 07:45] LABS: ANISOCYTOSIS 1+
[2017-08-28] MEDS: ISOSORBIDE MON. (IMDUR) 30 MG XR TAB PO SCH (09:13)
[2017-08-28] MEDS: METOPROLOL TART 25 MG TABLET PO SCH ×2 (09:14→21:00)
[2017-08-28] MEDS: PANTOPRAZOLE 40MG INJ (PROTONIX) (C9113) IV SCH ×2 (09:14→21:00)
[2017-08-28] MEDS: MORPHINE 1MG/ML IN 0.9% NACL 100ML IV BAG IV PRN (09:15)
[2017-08-28 12:00] VITALS: BP 134/65
--- NOTE | 2017-08-28 13:27 | REP ---
Supine abdomen two views: Comparison is 08/24/2017: The bowel gas pattern is normal and unchanged. Surgical drains and tubes are again noted. Midline longitudinal skin amisha are again identified. There is a surgical staple line in the mid upper abdomen. This is unchanged. Impression: Normal bowel gas pattern. No interval change. Signed by Collin Weinstein MD 08/28/2017 01:19 P
[2017-08-28 16:00] VITALS: BP 136/60
[2017-08-28] MEDS ORDERED: FAT EMULSION IV 20% 500 ML IV SCH (18:00)
[2017-08-28] MEDS ORDERED: AMINO AC/ELECTROLYTE/DEX/CALC 2,000 ML IV SCH (18:00)
[2017-08-28] MEDS: ERTAPENEM SODIUM 1 GM in NS MINI-BAG PLUS 50 ML IV SCH (18:02)
[2017-08-28] MEDS: NS 1,000 ML IV SCH (18:02)
[2017-08-28] MEDS: FLUCONAZOLE 100 MG in APPROPRIATE DILUENT 1 EA IV SCH (19:02)
[2017-08-28 19:48] VITALS: BP 144/78
--- NOTE | 2017-08-28 19:56 | IPN ---
DATE: 08/28/2017 HISTORY: Patient is now 13 days postoperative from exploratory laparotomy for a perforated duodenal ulcer and 5 days postoperative from reexploration for leakage around a duodenostomy tube. He has generally been making a good recovery from this most recent surgery but continues to drain some bilious fluid from the single drain in the right upper quadrant that reportedly drains the area of the perforated ulcer and the repaired duodenotomy. VITAL SIGNS: The patient has been afebrile for the last 24 hours. Pulse is in the 60s to 70s and his blood pressure and room air saturations are fine. Intake and output yesterday showed 2900 in and 4600 out, with 3700 of urine. He appears to be mobilizing third-space fluid spontaneously. His weight is down 1.8 kg from yesterday. PHYSICAL EXAMINATION: The patient remains alert and oriented. His only complaint is of some persistent waxing and waning pain, primarily in the lateral aspect of the right lower quadrant. Sclerae are anicteric. Heart exam shows a regular rate and rhythm. The lungs are clear bilaterally. The Oziel-Gilbert drain in the right upper quadrant is draining some murky bilious fluid. His midline incision appears clean with several open areas that are being treated with local wound care. The jejunostomy feeding tube is being used at 25 mL/hour in the left lower abdomen. The combined gastrostomy-jejunostomy tube in the left abdomen shows a few mL at most of bile from the gastrostomy (G) tube portion and nothing from the jejunostomy (J) tube portion. LABORATORY DATA: Show continued improvement with his white count now down to 9.7, with a hemoglobin of 11, hematocrit of 32, and 323,000 platelets. His differential count is now back to normal with 63% neutrophils, 2 bands, 21% lymphocytes, and 7 monocytes. Chemistry panel shows a sodium of 132, but otherwise normal electrolytes. His BUN is 14 with a creatinine of 0.64 and a glucose of 115. His calcium has risen to 7.8 over the last 3 days. His total protein is 6.0 with an albumin of 1.8. KUB done yesterday showed his nasogastric (NG) tube and Oziel-Gilbert drain unchanged. The jejunostomy feeding tube seems to be in a reasonable position and the retrograde placed gastrojejunostomy tube is hard to determine the position. IMPRESSION: Doing well postsurgery for a perforated duodenal ulcer. He does still have some bilious drainage from the drain in the area of his previous duodenal repair. He has not yet had any bowel function since his most recent surgery. He is not having increasing distention or abdominal pain, however, and he is starting to mobilize his own third-space fluid probably related to his improving nutritional parameters. PLAN: We will increase his jejunostomy feedings to 50 mL/hour. His nasogastric (NG) tube will be continued for now. His other tubes will remain in place. He is putting out about 450 mL of bilious fluid from the Oziel-Gilbert drain and this has remained relatively steady over the last 5 days. He does complain primarily of pain in the right lower quadrant and I will obtain a repeat CT scan of the abdomen and pelvis in the morning to look for any undrained fluid and to assess for bowel dilation and positioning of the gastrojejunal tube. His total parenteral nutrition (TPN) will be continued at the lowest rate possible. With improvement in his white blood cell count, I would anticipate considering stopping his antibiotics after a week. ANND
[2017-08-28] MEDS: ENOXAPARIN 40 MG/0.4 ML SYRINGE (J1650) SC SCH (21:52)
[2017-08-28 23:59] VITALS: BP 132/58
[2017-08-29] MEDS: HumaLOG INSULIN (NovoLOG) PER UNIT SC SCH ×5 (01:20→23:53)
[2017-08-29 04:00] VITALS: BP 132/67
[2017-08-29] MEDS: OCTREOTIDE ACETATE 100 MCG/ML VIAL (J2354) SC SCH (05:23)
[2017-08-29] MEDS: SODIUM CHLORIDE 0.9% INJ 10 ML SYR IV SCH ×2 (05:23→17:43)
[2017-08-29] MEDS: IPRATROPIUM 0.5MG/ALBUTEROL 2.5MG INH SOL UD 3ML (DUONEB)(J7620) NEB SCH ×4 (07:10→19:44)
[2017-08-29 07:25] LABS: MEAN CORPUSCULAR HEMOGLOBIN 31.9 pg (27.0-33.0); MEAN CORPUSCULAR HGB CONC 34.2 g/dl (32.0-36.5); MEAN CORPUSCULAR VOLUME 93.2 fl (80.0-96.0); RED CELL DISTRIBUTION WIDTH 13.5 % (11.5-14.5); WHITE BLOOD COUNT 8.8 10^3/uL (4.0-10.0)
[2017-08-29 08:00] VITALS: BP 119/65
[2017-08-29 08:03] LABS: ALBUMIN 1.8 GM/DL (3.2-5.2); ALBUMIN/GLOBULIN RATIO 0.43 (1.00-1.93); ALKALINE PHOSPHATASE 189 U/L (45-117); ALT/SGPT 76 U/L (12-78); ANION GAP 6 MEQ/L (8-16); AST/SGOT 56 U/L (15-37); BILIRUBIN,TOTAL 1.9 MG/DL (0.2-1.0); BLOOD UREA NITROGEN 15 MG/DL (7-18); CALCIUM LEVEL 7.8 MG/DL (8.8-10.2); CARBON DIOXIDE LEVEL 27 MEQ/L (21-32); CHLORIDE LEVEL 98 MEQ/L (98-107); CREATININE FOR GFR 0.74 MG/DL (0.70-1.30); GLOMERULAR FILTRATION RATE > 60.0 (>49); GLUCOSE, FASTING 118 MG/DL (80-110); POTASSIUM SERUM 4.3 MEQ/L (3.5-5.1); SODIUM LEVEL 131 MEQ/L (136-145)
[2017-08-29] MEDS: ISOSORBIDE MON. (IMDUR) 30 MG XR TAB PO SCH (08:56)
[2017-08-29] MEDS: PANTOPRAZOLE 40MG INJ (PROTONIX) (C9113) IV SCH ×2 (08:56→21:28)
[2017-08-29] MEDS: METOPROLOL TART 25 MG TABLET PO SCH ×2 (08:56→21:28)
[2017-08-29 12:00] VITALS: BP 125/62
[2017-08-29 16:00] VITALS: BP 114/60
--- NOTE | 2017-08-29 17:02 | REP ---
CT ABDOMEN AND PELVIS WITHOUT CONTRAST: CT abdomen and pelvis was performed without oral or IV contrast. Sagittal and coronal reconstruction images are performed. Comparison is made with prior study of 08/22/2017. Patchy atelectasis or infiltrate is seen in each lung base of a relatively similar degree compared to the prior study. Pneumomediastinum has improved since the prior study. Nasogastric tube is seen traversing into the stomach. There is a left upper quadrant tube traversing into the stomach. There is a drainage tube in the right upper quadrant. There appears to be a J-tube in the left upper quadrant. Previously noted scattered foci of free air has significantly improved. A tiny amount of residual free air is seen in the right upper quadrant. There is also a tiny amount of residual air in the left retroperitoneal space adjacent to the left kidney, also decreased since prior study. There is very mild free fluid in the right upper quadrant and pericolic gutter. I do not see a definite significant abscess collection although evaluation is somewhat limited without oral and IV contrast. There is no free fluid in the pelvis. A Davis catheter is seen in the urinary bladder which has collapsed and there is a small amount of air in the bladder. There is no pelvic mass. A small umbilical hernia contains fat. Streaky inflammatory densities are seen throughout the right upper quadrant mesentery. There is a cyst again seen in the left lobe of the liver. Calculus is seen in the lower pole of the left kidney and in the mid right kidney. There is no hydroureteronephrosis bilaterally. There are atherosclerotic calcifications of the abdominal aorta. IMPRESSION: Mild bibasilar atelectasis/infiltrate. Several abdominal tubes as discussed above. Improved pneumomediastinum. Significant decrease in the amount of intraperitoneal and retroperitoneal air. Scattered streaky inflammatory densities in the right upper quadrant mesenteric fat. A tiny amount of fluid in the right upper quadrant and in the right paracolic gutter. No definite significant abscess or fluid collection seen although evaluation is limited without oral and IV contrast. Signed by Collin Enrique MD 08/29/2017 05:08 P
[2017-08-29] MEDS: FLUCONAZOLE 100 MG in APPROPRIATE DILUENT 1 EA IV SCH (17:42)
[2017-08-29] MEDS: ERTAPENEM SODIUM 1 GM in NS MINI-BAG PLUS 50 ML IV SCH (17:42)
[2017-08-29] MEDS ORDERED: MULTIVITAMIN -ADULT INJECTION 10 ML, CR/CU/SE/MN/ZN INJ 1 ML in AMINO AC/ELECTROLYTE/DE... IV SCH (18:00)
[2017-08-29] MEDS ORDERED: FAT EMULSION IV 20% 500 ML IV SCH (18:00)
[2017-08-29] MEDS: NS 1,000 ML IV SCH (18:11)
[2017-08-29 20:00] VITALS: BP 119/56
--- NOTE | 2017-08-29 20:36 | IPN ---
DATE: 08/29/2017 HISTORY: The patient is now day 14 from repair of a perforated duodenal ulcer and day 6 from reexploration for removal of a leaking duodenostomy tube and repair of the duodenotomy. The patient reports that he is feeling better with less discomfort. He denies nausea. He has had a little flatus, but no bowel movement yet. Vital signs show that he is afebrile and his other vitals are stable. Intake and output yesterday: He had 1200 recorded in, although this would clearly underestimate his total parenteral nutrition and he had 4200 out. His drain yesterday put out 480 mL on the right side. He has a little bit of bile draining from the gastrostomy portion of the left-sided G-J tube. PHYSICAL EXAMINATION: The patient is alert and appears fairly comfortable. He was just getting out of bed to the chair when I came in. Sclerae are anicteric. Heart exam shows a regular rhythm. The lungs are clear. The abdomen remains obese. The drain in the right upper quadrant continues to put out some murky bilious fluid. There is a minimal bit of bilious fluid in the gastrostomy portion of the G-J tube on the left. His NG tube is putting out some lightly bilious fluid as well. Laboratory studies today showed sodium 131 and otherwise normal electrolytes. BUN is 15, creatinine 0.7 with a glucose of 118. His total protein is 6.0 and albumin is 1.8 which is stable from yesterday. Fingerstick blood sugars have ranged from 109-130. His final culture results from his surgery on the grew Enterococcus faecalis, which was heavy. He also had staph epidermitis and Tiff tropicalis. CT scan of the abdomen and pelvis was done early this morning without contrast to see if there was any evidence of an undrained collection in the upper abdomen. The radiologist interpretation was that there was some mild bibasilar atelectasis. There were some streaky inflammatory densities in the right upper quadrant mesenteric fat with a tiny amount of fluid in the right upper quadrant and the right paracolic gutter. There was no definite abscess seen. I reviewed the study and the Oziel-Gilbert drain seems to be in close approximation to the area of the second portion of the duodenum. The NG tube is in good position. The jejunostomy tube is nicely down into the jejunum. The retrograde G-J tube goes apparently into the stomach and through the gastrojejunal anastomosis and into the distal duodenum. IMPRESSION: The patient is doing well though he continues with bilious drainage from the area of the duodenal ulcer and repaired duodenotomy. The drain appears to be controlling the drainage as there is no evidence of significant free fluid on his CT scan and his labs are improving. His nutritional parameters are improved. PLAN: The patient will continue on his current antibiotics for now. I think I will probably stop his ertapenem tomorrow on day 7. He will remain on his total parenteral nutrition today. I will increase his tube feedings to continue to convert from parenteral to enteral nutrition. As he had some issues with obstruction at the gastrojejunal anastomosis, I will obtain an upper GI series tomorrow and if this shows good flow through the efferent limb I will discontinue his NG tube. ALBERTO
[2017-08-29] MEDS: ENOXAPARIN 40 MG/0.4 ML SYRINGE (J1650) SC SCH (21:30)
[2017-08-30] VITALS (7 sets, daily range): BP systolic 110–129; BP diastolic 56–64; O2SAT 94
[2017-08-30] MEDS: SODIUM CHLORIDE 0.9% INJ 10 ML SYR IV SCH ×2 (05:51→18:36)
[2017-08-30] MEDS: HumaLOG INSULIN (NovoLOG) PER UNIT SC SCH ×4 (05:51→23:01)
[2017-08-30] MEDS: IPRATROPIUM 0.5MG/ALBUTEROL 2.5MG INH SOL UD 3ML (DUONEB)(J7620) NEB SCH ×4 (07:14→20:26)
[2017-08-30] MEDS: PANTOPRAZOLE 40MG INJ (PROTONIX) (C9113) IV SCH ×2 (10:07→21:01)
[2017-08-30] MEDS: ISOSORBIDE MON. (IMDUR) 30 MG XR TAB PO SCH (10:08)
[2017-08-30] MEDS: METOPROLOL TART 25 MG TABLET PO SCH ×2 (10:08→21:01)
[2017-08-30] MEDS ORDERED: GASTROGRAFIN SOLUTION 30ML (Q9963) As Ordered ONE (14:27)
--- NOTE | 2017-08-30 17:18 | REP ---
CT ABDOMEN AND PELVIS WITHOUT IV CONTRAST: CT abdomen and pelvis performed without IV contrast. Gastrografin was injected into the nasogastric tube prior to the CT images being performed. Sagittal and coronal reconstruction images are performed. Comparison made with prior study of08/29/2017. The bulk of the injected Gastrografin is seen in the stomach but there is passage into the proximal small bowel. However, the path of passage is not well determined. The anastomosis with jejunum at the inferior body of the stomach appears to be patent with a small amount of contrast crossing the anastomotic site. The antrum is filled with contrast. A staple line is visualized at the antrum. The proximal duodenum is diffusely opacified with contrast, as is the distal duodenum and proximal jejunum. Free extraluminal contrast is seen in the right upper quadrant leaking from the descending duodenum. A drainage tube is seen at that location. I do not see a definite communication between the antrum and proximal duodenum directly across the staple line, but I do suspect there may be communication since the bulk of the injected Gastrografin is seen in the adjacent stomach and in the proximal duodenum. The anastomosis between the stomach and jejunum is in the nondependent portion of the stomach since the patient was laying on his back during the contrast injection through the NG tube. I feel it is unlikely that the bulk of the injected Gastrografin traversed that anastomosis, filling the jejunum and refluxing all the way back to the duodenum to such an extent that would result in such a great degree of opacification of the duodenum and opacification of the leak at that site. The remainder of the study appears unchanged. I discussed this with Dr. Lorenz at the time of the exam. Signed by Collin Enrique MD 08/30/2017 05:40 P
[2017-08-30] MEDS ORDERED: FAT EMULSION IV 20% 500 ML IV SCH (18:00)
[2017-08-30] MEDS ORDERED: AMINO AC/ELECTROLYTE/DEX/CALC 2,000 ML IV SCH (18:00)
[2017-08-30] MEDS: FLUCONAZOLE 100 MG in APPROPRIATE DILUENT 1 EA IV SCH (18:35)
[2017-08-30] MEDS: NS 1,000 ML IV SCH (18:36)
--- NOTE | 2017-08-30 18:43 | IPN ---
DATE: 08/30/2017 HISTORY: Patient is now 2 weeks and 1 week postop from surgeries for perforated duodenal ulcer. He has a leakage of bilious fluid through a Oziel-Gilbert drain in the right upper quadrant, which is draining the area of his ulcer patch and repair of a duodenotomy. VITAL SIGNS: The patient is afebrile. His pulse is in the 60s to 70s. Blood pressure is good with a normal room air sat. INTAKE AND OUTPUT: Shows 3200 in with 4100 out. His YORDY drain yesterday had 400. He has drained a little bit of bile through the gastrostomy port of the gastrojejunal tube on the left. PHYSICAL EXAMINATION: The patient is alert and oriented. He seems a little sluggish today, but I think he has just been sleeping. Sclerae are anicteric. Heart exam shows a regular rhythm. The abdomen is obese. His YORDY drain on the right is draining turbid bilious fluid. There is some clear bile in the gastrojejunal tube gastrostomy site Oziel-Gilbert bulb. There is a minimal amount of bilious fluid also coming from the jejunal port on the left. He is receiving jejunostomy feeds through the J tube with 75 mL an hour of three-quarter strength Jevity. Midline wound is dressed. LABORATORY STUDIES: He does not have any new labs today. He is pending a upper GI series later in the day to assess the patency of his gastrojejunal anastomosis to assess whether we might remove his NG tube. 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 He has remained hemodynamically stable and afebrile with a normal white blood cell count at its last determination. His ertapenem will be stopped. I will continue the fluconazole for now. I will await the results of the upper GI series to assess removal of the NG tube. Apparently, the fluoroscopy room is down and the radiologist may be able to obtain some plain images after instillation of contrast. I encouraged the patient to be up out of bed. He is still using the EMAIL MANAGER though the amount of morphine used is much diminished. I will continue his TPN at a low rate today and also continue the jejunostomy feeds. ALBERTO
[2017-08-30] MEDS: ENOXAPARIN 40 MG/0.4 ML SYRINGE (J1650) SC SCH (21:01)
[2017-08-31] VITALS (8 sets, daily range): BP systolic 108–132; BP diastolic 55–64; O2SAT 97
[2017-08-31 04:54] LABS: BASO % 0.5 % (0.0-1.0); EOS # 0.1 10^3/uL (0.0-0.50); EOS % 1.8 % (0.0-3.0); IMMATURE GRANULOCYTE % 2.2 % (0-0); LYMPH # 1.5 10^3/uL (1.5-4.5); LYMPH % 20.1 % (24.0-44.0); MEAN CORPUSCULAR HEMOGLOBIN 31.8 pg (27.0-33.0); MEAN CORPUSCULAR HGB CONC 34.1 g/dl (32.0-36.5); MEAN CORPUSCULAR VOLUME 93.2 fl (80.0-96.0); MONO # 0.8 10^3/uL (0.0-0.8); MONO % 10.5 % (0.0-5.0); NEUTROPHILS # 4.8 10^3/uL (1.8-7.7); NEUTROPHILS % 64.9 % (36.0-66.0); PLATELET COUNT, AUTOMATED 304 10^3/uL (150-450); RED CELL DISTRIBUTION WIDTH 13.7 % (11.5-14.5); WHITE BLOOD COUNT 7.3 10^3/uL (4.0-10.0)
[2017-08-31] MEDS: SODIUM CHLORIDE 0.9% INJ 10 ML SYR IV SCH ×2 (04:54→17:17)
[2017-08-31 05:36] LABS: ALBUMIN 1.9 GM/DL (3.2-5.2); ALBUMIN/GLOBULIN RATIO 0.42 (1.00-1.93); ALKALINE PHOSPHATASE 178 U/L (45-117); ALT/SGPT 78 U/L (12-78); ANION GAP 7 MEQ/L (8-16); AST/SGOT 51 U/L (15-37); BILIRUBIN,TOTAL 1.9 MG/DL (0.2-1.0); BLOOD UREA NITROGEN 16 MG/DL (7-18); CALCIUM LEVEL 7.8 MG/DL (8.8-10.2); CARBON DIOXIDE LEVEL 28 MEQ/L (21-32); CHLORIDE LEVEL 100 MEQ/L (98-107); CREATININE FOR GFR 0.74 MG/DL (0.70-1.30); GLOMERULAR FILTRATION RATE > 60.0 (>49); GLUCOSE, FASTING 99 MG/DL (80-110); POTASSIUM SERUM 4.2 MEQ/L (3.5-5.1); SODIUM LEVEL 135 MEQ/L (136-145); TOTAL PROTEIN 6.4 GM/DL (6.4-8.2)
[2017-08-31] MEDS: HumaLOG INSULIN (NovoLOG) PER UNIT SC SCH ×2 (05:39→11:43)
[2017-08-31] MEDS: IPRATROPIUM 0.5MG/ALBUTEROL 2.5MG INH SOL UD 3ML (DUONEB)(J7620) NEB SCH ×3 (07:04→19:39)
[2017-08-31] MEDS: PANTOPRAZOLE 40MG INJ (PROTONIX) (C9113) IV SCH ×2 (09:02→20:21)
[2017-08-31] MEDS: METOPROLOL TART 25 MG TABLET PO SCH ×2 (09:05→20:22)
[2017-08-31] MEDS: ISOSORBIDE MON. (IMDUR) 30 MG XR TAB PO SCH (09:05)
[2017-08-31] MEDS: MORPHINE 1MG/ML IN 0.9% NACL 100ML IV BAG IV PRN (10:45)
--- NOTE | 2017-08-31 12:41 | REP ---
GASTROGRAFIN UPPER GI: The procedure was performed under the personal supervision of Dr. Enrique. The images were reviewed with Dr. Enrique. Approximately 400 mL of a 50/50 solution of Gastrografin and water was instilled through the NG tube. Images demonstrate filling of the stomach with contrast passing into a loop of bowel however, we are unable to tell exactly what loop of bowel is being filled. The patient was then taken to CT scan for imaging. The CT scan report will follow. 1.3 minutes of fluoroscopy time was utilized for this procedure. Reviewed by NADINE Page 09/05/2017 02:55 PEdited and Signed by Collin Enrique MD 09/05/2017 07:45 P
[2017-08-31] MEDS ORDERED: CHLORASEPTIC SPRAY MT PRN (15:45)
[2017-08-31] MEDS: FLUCONAZOLE 100 MG in APPROPRIATE DILUENT 1 EA IV SCH (17:17)
[2017-08-31] MEDS: NS 1,000 ML IV SCH (17:17)
[2017-08-31] MEDS: ENOXAPARIN 40 MG/0.4 ML SYRINGE (J1650) SC SCH (20:21)
[2017-09-01] VITALS (7 sets, daily range): BP systolic 114–136; BP diastolic 57–73
--- NOTE | 2017-09-01 02:43 | IPN ---
DATE OF SERVICE: 08/31/2017 HISTORY: The patient is now 16 days postoperative from exploratory laparotomy for a perforated duodenal ulcer and 8 days postoperative for reexploration for leakage around a duodenostomy tube. He has generally done well the last day. He had testing yesterday with a CT scan to assess for flow through his gastrojejunostomy. Interestingly, though the stomach had significant contrast within it, there was flow of contrast primarily retrograde through the afferent limb of the gastrojejunostomy and to the duodenum and then leaking through his right upper quadrant drain. There was some flow distally in the jejunum. Vital signs: The patient remains afebrile with a pulse in the 70s and a good blood pressure. Intake and output yesterday showed 3800 in with 4300 out. His drain output in the right upper quadrant had increased to 870 mL yesterday from approximately 400-450 the previous 4 days. PHYSICAL EXAMINATION: Revealed a pleasant man lying quietly in the bed. Sclerae are anicteric. Heart exam shows a regular rhythm and the lungs are clear. The abdomen is obese. His midline incision appears to be healing well with closure of the small areas where his gauze eliud had been. The right upper quadrant drain is draining bilious turbid fluid. He has jejunostomy tube feedings going through the tube in the left lower quadrant and the gastrojejunal tube in the left mid upper abdomen has a minimal amount of bilious fluid in the Oziel-Gilbert bulb on the gastrostomy side and nothing from the jejunostomy side. The abdomen is obese, but soft. LABORATORY STUDIES: Show a white count of 7.3, hemoglobin of 11, hematocrit 32 and a platelet count of 304,000. Differential count shows 65% neutrophils, 20% lymphocytes and 10% monocytes. Chemistries show a sodium of 135, potassium 4.2, chloride 100, CO2 of 28, BUN 16 , creatinine 0.7, and a glucose of 99. Total protein is normal at 6.4 with an albumin of 1.9. IMAGING STUDIES: As noted, his imaging showed that contrast placed within the stomach seemed to go more easily proximal into the duodenum and drained through the right upper quadrant Oziel-Gilbert drain. I do note on reviewing the imaging myself that the balloon of the jejunal tube is fully inflated and I do wonder if this might be causing some relative outflow obstruction distally. IMPRESSION: Doing well with controlled duodenal fistula at this point. He has no signs of active infection. His nutritional parameters are improving as he has remained on total parenteral nutrition (TPN) as enteral feeds were started and increased. His left-sided gastrojejunal tube does not appear to be offering much benefit. PLAN: The gastrojejunal tube will be capped off. I do not want to remove it at this time as the insertion site may not have healed fully yet. The patient's TPN will be discontinued and his jejunostomy feeds increased to 100 mL an hour of three-quarter strength Jevity, which should provide adequate calories, as well as some free water. I will drop the balloon on the jejunal tube and see if this relieves some degree of restriction to flow distally. I will monitor the output from his drain and nasogastric (NG) tube to see if this seems to make any difference. [facility]
[2017-09-01] MEDS: SODIUM CHLORIDE 0.9% INJ 10 ML SYR IV SCH ×2 (06:53→17:29)
[2017-09-01] MEDS: IPRATROPIUM 0.5MG/ALBUTEROL 2.5MG INH SOL UD 3ML (DUONEB)(J7620) NEB SCH ×4 (06:57→20:00)
[2017-09-01] MEDS: PANTOPRAZOLE 40MG INJ (PROTONIX) (C9113) IV SCH ×2 (09:43→21:39)
[2017-09-01] MEDS: METOPROLOL TART 25 MG TABLET PO SCH ×2 (09:51→21:39)
[2017-09-01] MEDS: ISOSORBIDE MON. (IMDUR) 30 MG XR TAB PO SCH (09:51)
[2017-09-01 10:07] LABS: MEAN CORPUSCULAR HEMOGLOBIN 32.2 pg (27.0-33.0); MEAN CORPUSCULAR HGB CONC 34.6 g/dl (32.0-36.5); MEAN CORPUSCULAR VOLUME 93.1 fl (80.0-96.0); PLATELET COUNT, AUTOMATED 291 10^3/uL (150-450); RED CELL DISTRIBUTION WIDTH 13.8 % (11.5-14.5); WHITE BLOOD COUNT 8.2 10^3/uL (4.0-10.0)
[2017-09-01 10:26] LABS: ANION GAP 6 MEQ/L (8-16); BLOOD UREA NITROGEN 19 MG/DL (7-18); CALCIUM LEVEL 7.8 MG/DL (8.8-10.2); CARBON DIOXIDE LEVEL 28 MEQ/L (21-32); CHLORIDE LEVEL 100 MEQ/L (98-107); CREATININE FOR GFR 0.85 MG/DL (0.70-1.30); GLOMERULAR FILTRATION RATE > 60.0 (>49); GLUCOSE, FASTING 112 MG/DL (80-110); MAGNESIUM LEVEL 2.4 MG/DL (1.8-2.4); POTASSIUM SERUM 4.1 MEQ/L (3.5-5.1); SODIUM LEVEL 134 MEQ/L (136-145)
--- NOTE | 2017-09-01 11:38 | ECGEPIP ---
Stationary ECG Study [facility] Test Date: 2017-09-01 Pat Name: CAMERON GARBER Department: Room: [place] [address] Gender: M Press Offbearer: : 1950 Requested By: ROSALIE Alegre Order Number: [id number] Reading MD: Salome Cole Measurements Intervals Emm[place] Rate: 76 P: 0 CO: 176 QRS: -25 QRSD: 105 T: 6 QT: 373 QTc: 421 Interpretive Statements SINUS RHYTHM BORDERLINE LEFT AXIS DEVIATION SINCE 08/15/17 R WAVE PROGRESSION IS NOW NORMAL Electronically Signed On 09-01-2017 11:38:44 EDT by Salome Cole
[2017-09-01] MEDS: FLUCONAZOLE 100 MG in APPROPRIATE DILUENT 1 EA IV SCH (17:28)
[2017-09-01] MEDS: MORPHINE 2 MG/ML 1ML SYRINGE IV PRN ×2 (17:29→17:39)
[2017-09-01] MEDS: NS 1,000 ML IV SCH (18:00)
[2017-09-01] MEDS: SODIUM CHLORIDE 0.9% INJ 10 ML SYR IV PRN (19:36)
--- NOTE | 2017-09-01 20:14 | CR ---
DATE OF CONSULTATION: 09/01/2017 This is a continuation of a previous dictation that was interrupted. OUTPATIENT MEDICATIONS: - Aspirin 81 a day - Lipitor 80 mg bedtime - vitamin D3 - cyclobenzaprine 10 mg three times a day as needed for spasm - isosorbide 30 mg a day - meloxicam 15 mg a day - metoprolol 25 twice a day - multivitamin - nitroglycerin - omeprazole 40 mg a day REVIEW OF SYSTEMS: On the review of systems, there is no history of stroke. No recent nausea, vomiting until presentation with current illness. He denied any anginal symptoms on outpatient basis. No syncope nor near syncope, paroxysmal nocturnal dyspnea (PND), orthopnea, peripheral edema. The rest as per history of present illness (HPI) or negative. PHYSICAL EXAMINATION: Mr. Dill is an elderly man who appears to be chronically and acutely ill but he does not appear in any distress. He has nasogastric (NG) tube in place. There is a drain in right upper quadrant and there is also an jejunotomy tube. Blood pressure 130/63, heart rate has been mostly in 60s to 80s. He is afebrile. Saturation 997% on room air. Weight has been documented as 99 kg. His jugular venous pulse (JVP) is not high. Lungs appear clear to auscultation with good air movement. I do not appreciate any wheezing or crackles. Heart exam reveals regular rhythm. No gallop or rub or murmur is appreciated. Abdomen has tubes as above. There is a dressing covering the area of the epigastrium. There is some diffuse tenderness but the abdomen is otherwise soft and his bowel sounds are positive. Extremities are free of edema. Peripheral pulses are easily palpable. Neurologically he is alert and oriented and appropriate. I did not do any formal testing of his strengths. LABORATORY DATA: CBC reveals hemoglobin 10.9, hematocrit 31, platelet count 291,000. Basic metabolic panel: Sodium 134, potassium 4.1, BUN 19, creatinine 0.8, glucose 112, magnesium 2.4. An ECG performed minutes ago reveals sinus rhythm and does not reveal any acute ST-segment shift. Cardiac enzymes are pending. ASSESSMENT AND PLAN: Mr. Dill is a 66-year-old man who has a history of coronary artery disease (CAD) with remote history of intervention to left anterior descending (LAD), who has medical approximately 70% stenosis in the ramus intermedius based on coronary angiogram in March 2017. He is currently postoperative day number 16 or 17 after extensive abdominal surgery for perforated duodenal ulcer and reexploration several days later. From cardiac perspective, as far as nonsustained ventricular tachycardia is concerned, I would continue observation only. He is already on beta lisa and the rate is well controlled. His electrolytes are without any specific disturbance. Electrocardiogram (ECG) does not reveal any ischemic changes, and the pain he has sounds noncardiac. I will obtain cardiac enzymes tonight and tomorrow, but I do not expect that he has myocardial infarction. As far as the management is concerned, he is already on metoprolol 25 twice a day and I am going to leave the dose unchanged. Vital signs seem to be well controlled. He is not in congestive heart failure. I do not believe that we should give him aspirin unless his troponin is elevated. At this point, I think the risks still outweigh the potential benefit. I will talk to Dr. Bob but tentatively will give him Lipitor tonight. I do not believe that there is much risk in this medication and it can provide some additional cardiac protection. I will follow the patient with you. ALBERTO
[2017-09-01] MEDS: ENOXAPARIN 40 MG/0.4 ML SYRINGE (J1650) SC SCH (21:39)
[2017-09-01] MEDS: ATORVASTATIN 20 MG TAB PO SCH (21:39)
[2017-09-01] MEDS: NORCO, ANEXSIA 5/325MG TABLET (HYDROcodone/ACETAMINOPHEN) PO PRN (21:41)
[2017-09-01] MEDS: zolPIDEM TARTRATE 5 MG TAB PO PRN (23:30)
[2017-09-02 04:00] VITALS: BP 126/65
[2017-09-02] MEDS: SODIUM CHLORIDE 0.9% INJ 10 ML SYR IV SCH ×2 (05:43→17:07)
[2017-09-02 06:28] LABS: MEAN CORPUSCULAR HEMOGLOBIN 31.7 pg (27.0-33.0); MEAN CORPUSCULAR HGB CONC 34.1 g/dl (32.0-36.5); PLATELET COUNT, AUTOMATED 323 10^3/uL (150-450); RED CELL DISTRIBUTION WIDTH 13.8 % (11.5-14.5); WHITE BLOOD COUNT 8.3 10^3/uL (4.0-10.0)
[2017-09-02 06:58] LABS: ALBUMIN 2.1 GM/DL (3.2-5.2); ALBUMIN/GLOBULIN RATIO 0.38 (1.00-1.93); ALKALINE PHOSPHATASE 201 U/L (45-117); ALT/SGPT 166 U/L (12-78); ANION GAP 8 MEQ/L (8-16); AST/SGOT 133 U/L (15-37); BILIRUBIN,TOTAL 4.5 MG/DL (0.2-1.0); BLOOD UREA NITROGEN 16 MG/DL (7-18); CALCIUM LEVEL 8.4 MG/DL (8.8-10.2); CARBON DIOXIDE LEVEL 26 MEQ/L (21-32); CHLORIDE LEVEL 101 MEQ/L (98-107); CREATININE FOR GFR 0.78 MG/DL (0.70-1.30); GLOMERULAR FILTRATION RATE > 60.0 (>49); GLUCOSE, FASTING 96 MG/DL (80-110); MAGNESIUM LEVEL 2.4 MG/DL (1.8-2.4); POTASSIUM SERUM 3.7 MEQ/L (3.5-5.1); SODIUM LEVEL 135 MEQ/L (136-145); TOTAL PROTEIN 7.6 GM/DL (6.4-8.2)
[2017-09-02] MEDS: IPRATROPIUM 0.5MG/ALBUTEROL 2.5MG INH SOL UD 3ML (DUONEB)(J7620) NEB SCH ×4 (07:15→20:36)
[2017-09-02 08:04] VITALS: BP 118/60
[2017-09-02] MEDS: PANTOPRAZOLE 40MG INJ (PROTONIX) (C9113) IV SCH ×2 (08:51→21:03)
[2017-09-02] MEDS: METOPROLOL TART 25 MG TABLET PO SCH ×2 (08:52→21:02)
[2017-09-02] MEDS: ISOSORBIDE MON. (IMDUR) 30 MG XR TAB PO SCH (08:52)
--- NOTE | 2017-09-02 09:17 | REP ---
Acute abdominal series four views including PA chest, upright abdomen and two supine views of the abdomen: PA chest: Comparison is 08/19/2017. There is discoid atelectasis inferiorly in the right lung. This was also present previously. The right hemidiaphragm is elevated. This is unchanged. The lung munguia otherwise clear. Cardiac size is normal. The There is a nasogastric tube terminating satisfactorily in the abdominal left upper quadrant as an interval change. There is a right upper extremity PICC line terminating in the superior vena cava as an interval change. Impression: Persisting discoid atelectasis inferiorly in the right lung. Abdomen, supine and upright views: Comparison is 2016. The bowel gas pattern is normal. Surgical drains and tubes are again identified. There is a calcification on the left, likely in the lower pole of the left kidney. There are midline longitudinal skin amisha. Skeletal structures and soft tissues otherwise are unremarkable. Signed by Collin Weinstein MD 09/02/2017 08:09 A
[2017-09-02] MEDS: NORCO, ANEXSIA 5/325MG TABLET (HYDROcodone/ACETAMINOPHEN) PO PRN ×2 (10:23→18:10)
--- NOTE | 2017-09-02 11:30 | ECGEPIP ---
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
--- NOTE | 2017-09-02 11:30 | ECGEPIP ---
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
--- NOTE | 2017-09-02 11:35 | ECGEPIP ---
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
--- NOTE | 2017-09-02 11:36 | IPN ---
DATE: 09/02/2017 Mr. Alarcon did not have a good night. He had a lot more abdominal pain, and he still is very uncomfortable. This morning, when I saw him, he was on the commode trying to have bowel movement unsuccessfully. He denies any chest pain as such or shortness of breath. Blood pressure 118/60, heart rate has been in 70s. He has been afebrile. Maximum temperature (Tmax) last night was 99.0. Saturation is 95-97% on room air. His fluid balance yesterday was negative about 1100. Documented weight is 96.7. He is alert and oriented. He seems to be in mild distress due to the abdominal pain. Blood pressure 118/60, heart rate 71. Saturation 95% on room air. His JVP is not up. Lungs are clear to auscultation. Heart exam reveals regular rhythm. No gallop, rub, or murmur is noted. Abdomen is diffusely tender. I do not appreciate any distinct guarding as such. Extremities are free of edema. Neurologically, he is intact. Laboratory-rivers, basic metabolic panel is normal but for low sodium 135, but his liver function tests are worse. His AST 133, ALT 166, and bilirubin 4.5 which is essentially doubling from 2 days ago. His cardiac enzymes remain negative, and albumin is 2.1. Electrocardiogram (ECG) from this morning remains unremarkable. ASSESSMENT/PLAN: Mr. Alarcon is a 66-year-old man who has established coronary artery disease with remote placement of stent into LAD and approximately 70% stenosis in ramus detected by recent cardiac catheterization in 03/2017. He had two runs of nonsustained ventricular tachycardia yesterday but does not have any evidence for myocardial necrosis and has not had any additional arrhythmias on telemetry. Unfortunately, I am afraid that the lab work testing indicates that he is having some obstruction to the drainage of bile. I spoke with Dr. Bob about these findings. He does not believe that there is an option of further surgical exploration at this point. The management in this regard remains with surgical team. From cardiac perspective, there will be no changes. He will continue on combination of beta-lisa and statin. I am not going to put him back on aspirin as yet as, in my opinion, there is a very distinct possibility of recurrent gastrointestinal (GI) bleed and necessity to pursue yet another surgery in very inflamed terrain. MTDD
--- NOTE | 2017-09-02 11:41 | IPN ---
DATE: 09/02/2017 Shortly after I finished my dictation on Mr. Dill, I was called by progressive care unit (PCU) nurse. He had had yet another episode of ventricular tachycardia, this time lasting 15 beats. He was sitting on commode and pushing and complained about worsening pain in his right upper quadrant and abdomen. Became diaphoretic and as he was being transferred from commode to the bed, VT occurred. He said that besides the pain in the abdomen, he also had a sharp pain in his chest and there was some radiation to his jaw. By the time I saw the patient, the pain in the chest has resolved, but he still had fairly severe abdominal pain in right upper quadrant that was aggravated by movement and touch. He remains stable as far as the vital signs are concerned, blood pressure was about 110/70 and heart rate in 70s, sinus rhythm. Saturation remains 95% on room air. Heart exam is unchanged. I do not appreciate murmur, gallop, or rub. Lungs are clear. Abdomen remains diffusely tender. I will order another EKG, another set of cardiac enzymes this afternoon. But nevertheless, my assessment is unchanged. It is very likely that this is a consequence of the abdominal process with fairly severe pain that causes significant stress to the patient. ALBERTO
[2017-09-02 12:00] VITALS: BP 126/66
[2017-09-02] MEDS ORDERED: ISOVUE-370 76% 100ML VIAL (Q9967) As Ordered ONE (12:15)
--- NOTE | 2017-09-02 12:56 | CR ---
DATE OF CONSULTATION: 09/01/2017 REFERRING PHYSICIAN: Dr. Bob INDICATION: Nonsustained ventricular tachycardia. HISTORY OF PRESENT ILLNESS: Mr. Dill is a 66-year-old man who has a history of coronary artery disease and has been followed on outpatient basis by my partner, Dr. Hernandez. He presented to [facility] on 08/15/2017 with perforated duodenal ulcer and has since underwent two surgeries. Currently has gastroduodenostomy with drain in the right upper quadrant draining copious amount of bilious fluids likely indicating leakage around the gastrogastrostomy tube. I was asked by Dr. Bob to see the patient earlier today because he had an episode of nonsustained ventricular tachycardia. He had one episode this morning around 9:15 a.m. or so and then again one in the evening hours. Both times he was asymptomatic from perspective of arrhythmia. At the bedside, he complains about abdominal pain, pointing both to right upper quadrant as well as left upper quadrant. Feels that the morphine that he received recently actually relieved the pain significantly. Denies any chest pain as such. Denies any shortness of breath. PAST MEDICAL HISTORY: Coronary artery disease. He suffered myocardial infarction in 2005 and underwent stent placement to proximal LAD. His last cardiac catheterization was on 03/13/2017, after equivocally positive nuclear stress test. It revealed left ventricle ejection fraction 60%, mildly elevated left ventricular end diastolic pressure (LVEDP), patent stent in LAD, minimal disease in left circumflex and right coronary artery, and approximately 70% stenosis in proximal ramus that was felt to be best treated medically. He also carries a history of hypertension, chronic back pain, dyslipidemia and history of peptic ulcer disease for which he already had one previous exploration. SURGICAL HISTORY: Is positive for left thumb surgery, prior gastric surgery for ulcer, nasal polypectomy, and colonoscopies and esophagogastroduodenoscopies (EGDs). SOCIAL HISTORY: Patient is . Lives alone. Smoked approximately three packs a day until very recently when he cut down to about 10 cigarettes a day. No significant alcohol use. FAMILY HISTORY: His mother has coronary artery disease and brother has peripheral vascular disease. OUTPATIENT MEDICATIONS: Include: - aspirin - metoprolol DICTATION ENDED - see separate report for completion. MTDD
[2017-09-02] MEDS: MORPHINE 2 MG/ML 1ML SYRINGE IV PRN (13:25)
--- NOTE | 2017-09-02 14:48 | REP ---
CT of the abdomen and pelvis with IV contrast, without bowel contrast: There is a nasogastric tube. There is also a jejunal tube. In addition there are a surgical drainage tubes in the abdomen on the right. There is no pneumoperitoneum. There is phlegmon within the mesenteric fat in the abdomen on the right adjacent to the drainage tubes. No focal fluid collections are identified. There is no bowel distension or obstruction. The visualized lung munguia are clear. There are no pleural effusions. The hepatic parenchyma is unremarkable except for a cyst in the left lobe. This is unchanged. The gallbladder and pancreas are unremarkable. The spleen is unremarkable. The adrenals, kidneys and abdominal aorta are unremarkable. There is no bowel distension or obstruction. There is a fat-containing umbilical hernia, unchanged. Pelvis: There is no ascites or adenopathy. The pelvic bowel loops are unremarkable. Impression: Surgical drainage tubes an intraluminal tubes as described. There is phlegmon in the mesenteric fat in the abdomen on the right near the surgical drainage tubes. No focal fluid collections are identified. There is no pneumoperitoneum. No bowel distension or obstruction. No ascites or adenopathy. No pneumoperitoneum. Signed by Collin Weinstein MD 09/02/2017 01:04 P
[2017-09-02] MEDS: NS 1,000 ML IV SCH (15:05)
[2017-09-02 16:00] VITALS: BP 115/59
[2017-09-02] MEDS: FLUCONAZOLE 100 MG in APPROPRIATE DILUENT 1 EA IV SCH (17:07)
[2017-09-02 20:43] VITALS: BP 117/62
[2017-09-02] MEDS: SODIUM CHLORIDE 0.9% INJ 10 ML SYR IV PRN (21:02)
[2017-09-02] MEDS: ENOXAPARIN 40 MG/0.4 ML SYRINGE (J1650) SC SCH (21:03)
[2017-09-02] MEDS: ATORVASTATIN 20 MG TAB PO SCH (21:03)
[2017-09-03] VITALS (7 sets, daily range): BP systolic 110–124; BP diastolic 58–67; O2SAT 95
[2017-09-03] MEDS: zolPIDEM TARTRATE 5 MG TAB PO PRN (01:20)
[2017-09-03] MEDS: SODIUM CHLORIDE 0.9% INJ 10 ML SYR IV SCH ×2 (05:17→18:59)
[2017-09-03 05:34] LABS: MEAN CORPUSCULAR HEMOGLOBIN 31.3 pg (27.0-33.0); MEAN CORPUSCULAR HGB CONC 33.7 g/dl (32.0-36.5); MEAN CORPUSCULAR VOLUME 92.9 fl (80.0-96.0); PLATELET COUNT, AUTOMATED 333 10^3/uL (150-450); RED CELL DISTRIBUTION WIDTH 14.1 % (11.5-14.5); WHITE BLOOD COUNT 8.5 10^3/uL (4.0-10.0)
[2017-09-03 06:18] LABS: ALBUMIN 2.2 GM/DL (3.2-5.2); ALBUMIN/GLOBULIN RATIO 0.42 (1.00-1.93); ALKALINE PHOSPHATASE 250 U/L (45-117); ALT/SGPT 222 U/L (12-78); ANION GAP 7 MEQ/L (8-16); AST/SGOT 148 U/L (15-37); BILIRUBIN,TOTAL 4.4 MG/DL (0.2-1.0); BLOOD UREA NITROGEN 21 MG/DL (7-18); CALCIUM LEVEL 8.1 MG/DL (8.8-10.2); CARBON DIOXIDE LEVEL 27 MEQ/L (21-32); CHLORIDE LEVEL 100 MEQ/L (98-107); CREATININE FOR GFR 0.86 MG/DL (0.70-1.30); GLOMERULAR FILTRATION RATE > 60.0 (>49); GLUCOSE, FASTING 92 MG/DL (80-110); MAGNESIUM LEVEL 2.4 MG/DL (1.8-2.4); SODIUM LEVEL 134 MEQ/L (136-145); TOTAL PROTEIN 7.4 GM/DL (6.4-8.2)
[2017-09-03] MEDS: IPRATROPIUM 0.5MG/ALBUTEROL 2.5MG INH SOL UD 3ML (DUONEB)(J7620) NEB SCH ×4 (07:01→20:00)
[2017-09-03] MEDS: ISOSORBIDE MON. (IMDUR) 30 MG XR TAB PO SCH (08:05)
[2017-09-03] MEDS: PANTOPRAZOLE 40MG INJ (PROTONIX) (C9113) IV SCH ×2 (08:06→21:03)
[2017-09-03] MEDS: METOPROLOL TART 25 MG TABLET PO SCH ×2 (08:06→21:04)
[2017-09-03] MEDS: NORCO, ANEXSIA 5/325MG TABLET (HYDROcodone/ACETAMINOPHEN) PO PRN ×2 (08:20→21:05)
--- NOTE | 2017-09-03 08:24 | IPN ---
DATE: 09/03/2017 Mr. Dill had no significant cardiac events overnight. He was monitored on telemetry and remained in sinus rhythm. There has not been any recurrence of ventricular tachycardia since yesterday morning. His EKG after the event yesterday was also normal and cardiac enzymes too. He continues to complain about abdominal pain but reports that it is better. Denies any dyspnea or chest discomfort. Blood pressure 111/61, heart rate has been mostly in 70s. He is afebrile. Saturation 94% on room air. Fluid balance yesterday approximately equal. Weight 98.1 kg. He is alert and oriented and appropriate even though somewhat somnolent JVP is not up. Lungs are clear bilaterally with good air movement. Heart exam reveals regular rhythm. No gallop, rub or murmur. Abdomen remains diffusely tender but no guarding. No peripheral edema. Neurologically he is intact other than some effect of the sedation. I did not do any formal testing of his strengths. LABORATORY: CBC - hemoglobin 11.5, hematocrit 34, platelet count 333,000 and WBC count 8.5. Basic metabolic panel - sodium 134, potassium 4, BUN 21, creatinine 0.9, glucose 92, magnesium 2.4, bilirubin is 4.4, AST 148, ALT 222 and alkaline phosphatase 250, albumin is 2.2. ASSESSMENT/PLAN: Mr. Dill is a 66-year-old man who had extensive abdominal surgery times two for perforated duodenal ulcer. He still has a lot of drainage and there is apparently a significant leakage around jejunostomy tube. This tube is managed by surgery. I was asked to see him because he had several (by now three) runs of nonsustained ventricular tachycardia. They were all very short-lived and in my opinion represent the effect of very high stress on patient with known coronary artery disease, but did not have any ischemic changes on EKG. His cardiac enzymes remain negative. He is on beta-lisa and statin. I am still somewhat reluctant to reintroduce aspirin until we have some confidence that no further surgical intervention will be necessary. I am going to wait at least 1 or 2 more days depending on circumstances. I do not have any new suggestions.
[2017-09-03] MEDS ORDERED: METOPROLOL TART 25 MG TABLET PO ONE (15:30)
[2017-09-03] MEDS: ERTAPENEM SODIUM 1 GM in NS MINI-BAG PLUS 50 ML IV SCH (18:00)
[2017-09-03] MEDS: FLUCONAZOLE 100 MG in APPROPRIATE DILUENT 1 EA IV SCH (18:59)
[2017-09-03] MEDS: ATORVASTATIN 20 MG TAB PO SCH (21:04)
[2017-09-03] MEDS: ENOXAPARIN 40 MG/0.4 ML SYRINGE (J1650) SC SCH (21:04)
[2017-09-04] VITALS (7 sets, daily range): BP systolic 116–152; BP diastolic 70–86
[2017-09-04] MEDS: NORCO, ANEXSIA 5/325MG TABLET (HYDROcodone/ACETAMINOPHEN) PO PRN ×2 (06:02→15:09)
[2017-09-04] MEDS: SODIUM CHLORIDE 0.9% INJ 10 ML SYR IV SCH ×2 (06:03→22:16)
[2017-09-04 06:08] LABS: MEAN CORPUSCULAR HEMOGLOBIN 31.3 pg (27.0-33.0); MEAN CORPUSCULAR HGB CONC 33.7 g/dl (32.0-36.5); MEAN CORPUSCULAR VOLUME 92.8 fl (80.0-96.0); PLATELET COUNT, AUTOMATED 325 10^3/uL (150-450); RED CELL DISTRIBUTION WIDTH 14.1 % (11.5-14.5); WHITE BLOOD COUNT 9.6 10^3/uL (4.0-10.0)
[2017-09-04 06:39] LABS: ALBUMIN 2.4 GM/DL (3.2-5.2); ALBUMIN/GLOBULIN RATIO 0.45 (1.00-1.93); ALKALINE PHOSPHATASE 250 U/L (45-117); ALT/SGPT 190 U/L (12-78); ANION GAP 9 MEQ/L (8-16); AST/SGOT 88 U/L (15-37); BLOOD UREA NITROGEN 24 MG/DL (7-18); CALCIUM LEVEL 8.5 MG/DL (8.8-10.2); CARBON DIOXIDE LEVEL 28 MEQ/L (21-32); CHLORIDE LEVEL 99 MEQ/L (98-107); CREATININE FOR GFR 0.88 MG/DL (0.70-1.30); GLOMERULAR FILTRATION RATE > 60.0 (>49); GLUCOSE, FASTING 95 MG/DL (80-110); MAGNESIUM LEVEL 2.5 MG/DL (1.8-2.4); POTASSIUM SERUM 3.9 MEQ/L (3.5-5.1); SODIUM LEVEL 136 MEQ/L (136-145); TOTAL PROTEIN 7.7 GM/DL (6.4-8.2)
[2017-09-04] MEDS: IPRATROPIUM 0.5MG/ALBUTEROL 2.5MG INH SOL UD 3ML (DUONEB)(J7620) NEB SCH ×4 (07:39→20:00)
--- NOTE | 2017-09-04 08:06 | IPN ---
DATE OF SERVICE: 09/04/2017 Mr. Dill had yet another run of ventricular tachycardia yesterday morning. It was the longest one for far approximately 40 beats. He apparently felt "hot" but did not have any other symptoms. There has not been any recurrence since. This morning, he is resting comfortably which is a blessing as he frequently complains about abdominal pain. Vital signs: Blood pressure 152/82, heart rate has been consistently in 70s. He is afebrile. Saturation is 94% on room air. His fluid balance yesterday was documented about 2 liters negative but weight is essentially changed at 98 kg. He is initially sleeping in completely horizontal position. His JVP is not up. Lungs are clear with good air movement. Heart exam reveals regular rhythm. I do not appreciate any gallop, rub or murmur. There is still diffuse tenderness of the abdomen but I do not appreciate any guarding. Bowel sounds are present. Extremities: Free of edema. No focal weakness is appreciated. LABORATORY: CBC: Hemoglobin 12.1, hematocrit 35, platelet count 325,000. WBC count 9.6. Basic metabolic panel is normal. Magnesium is 2.5. Bilirubin is down to 3. AST 88, ALT 190, alkaline phos 250, albumin 2.4. His cardiac enzymes yesterday remain negative. ASSESSMENT AND PLAN: Mr. Dill is a 66-year-old man who has a history of remote intervention to proximal LAD and has only single vessel disease based on cardiac catheterization in March 2017 when approximately 70% stenosis was noted in his ramus intermedius. It was not felt to be sufficiently obstructive in order to perform intervention. He presented with perforated duodenal ulcer and underwent two major surgeries. At this point, he has very difficult recovery with multiple drains in the abdomen still draining copious amount. I am very encouraged that his liver function tests including bilirubin are improving since yesterday. I am being involved because of several episodes of nonsustained ventricular tachycardia. I do believe that they are reflection of his overall sickness and excessive stress to the heart. There has been no evolution on ECG and there was no evidence for myocardial necrosis or ischemia. I am going to advance the dose of beta lisa some. He is on 25 of metoprolol twice a day. I am going to increase the dose to three times a day. Will continue low dose statin. I am not going to introduce aspirin as yet. He is scheduled to have a procedure today with change of the feeding tube. Hopefully it will help in his recovery. I am a little more optimistic today than I was yesterday. I do not believe that there is any hope for any potential intervention from cardiac perspective until his wounds are a little it better healed.
[2017-09-04] MEDS: METOPROLOL TART 25 MG TABLET PO SCH ×3 (08:33→22:17)
[2017-09-04] MEDS: ISOSORBIDE MON. (IMDUR) 30 MG XR TAB PO SCH (10:18)
[2017-09-04] MEDS: PANTOPRAZOLE 40MG INJ (PROTONIX) (C9113) IV SCH ×2 (10:19→22:17)
[2017-09-04] MEDS: SODIUM CHLORIDE 0.9% INJ 10 ML SYR IV PRN (10:20)
--- NOTE | 2017-09-04 12:45 | IPNPDOC ---
Subjective General Date/Time Seen The patient was seen on 09/04/17 at 07:35. Subject Chief Complaint/History The patient is a 66-year-old male admitted with a reason for visit of Perforated Duodenal Ulcer. He reports feeling tired he reports feeling tired and sleepy this morning. Otherwise still with right-sided abdominal discomfort. He has not had any V. tach episodes since yesterday afternoon after we restarted his antibiotics. Current Medications Current Medications Current Medications Acetaminophen (Tylenol Tab) 650 mg Q4HP PRN PO MILD PAIN or TEMP > 101; Start 08/15/17 at 23:15; Stop 09/14/17 at 23:14 Acetaminophen/ Hydrocodone Bitart ([place], [place] 5/325) 1 tab Q4HP PRN PO MILD /MODERATE PAIN (PS 1-7); Start 08/20/17 at 11:45; Stop 08/23/17 at 20:45; Status DC Acetaminophen/ Hydrocodone Bitart ([place], [place] 5/325) 2 tab Q4HP PRN PO SEVERE PAIN (PS 8-10) Last administered on 08/23/17 05:56; Start 08/20/17 at 11:45; Stop 08/23/17 at 20:45; Status DC Acetaminophen/ Hydrocodone Bitart ([place], [place] 5/325) 2 tab Q6HP PRN PO SEVERE PAIN (PS 8-10) Last administered on 09/04/17 06:02; Start 09/01/17 at 09:30; Stop 09/08/17 at 09:29 Albuterol Sulfate (Proventil Neb) 2.5 mg Q2HP PRN NEB SHORTNESS OF BREATH; Start 08/16/17 at 00:00; Stop 08/27/17 at 09:26; Status DC Albuterol/ Ipratropium (Duoneb (Ipr 0.5mg/Alb 2.5mg)) 3 ml RQ4H NEB Last administered on 08/16/17 09:25; Start 08/16/17 at 00:00; Stop 08/16/17 at 10:43 ; Status DC Albuterol/ Ipratropium (Duoneb (Ipr 0.5mg/Alb 2.5mg)) 3 ml RQID NEB Last administered on 09/04/17 11:32; Start 08/16/17 at 12:00; Stop 09/15/17 at 11: 59 Amino Ac/Electrol/ Dextrose/Calcium 2,000 ml @ 50 mls/hr ONCE@1800 IV Last administered on 08/28/17 18:06; Start 08/28/17 at 18:00; Stop 08/29/17 at 17 :59; Status DC Amino Ac/Electrol/ Dextrose/Calcium 2,000 ml @ 50 mls/hr ONCE@1800 IV Last administered on 08/30/17 18:35; Start 08/30/17 at 18:00; Stop 08/31/17 at 17 :59; Status DC Amino Ac/Electrol/ Dextrose/Calcium 2,000 ml @ 75 mls/hr ONCE@1800 IV Last administered on 08/25/17 17:15; Start 08/25/17 at 18:00; Stop 08/26/17 at 17 :59; Status DC Amino Ac/Electrol/ Dextrose/Calcium 2,000 ml @ 75 mls/hr ONCE@1800 IV Last administered on 08/26/17 17:38; Start 08/26/17 at 18:00; Stop 08/27/17 at 17 :59; Status DC Atorvastatin Calcium (Lipitor) 20 mg QHS PO Last administered on 09/03/17 21: 04; Start 09/01/17 at 21:00; Stop 10/01/17 at 20:59 Atorvastatin Calcium (Lipitor) 40 mg QHS PO Last administered on 08/24/17 21: 19; Start 08/19/17 at 21:00; Stop 08/25/17 at 07:59; Status DC Chlorhexidine Gluconate (Chlorhexidine Gluconate) SWAB/BRUSH ORAL CAVITY BID MT ; Start 08/16/17 at 09:00; Stop 08/16/17 at 10:41; Status DC Cyclobenzaprine HCl (Flexeril) 10 mg DAILY PRN PO MUSCLE SPASMS; Start at 09:30; Stop 08/27/17 at 09:26; Status DC Diphenhydramine HCl (Benadryl) 12.5 mg Q4HP PRN IV ITCHING; Start 08/23/17 at 18:00; Stop 09/01/17 at 09:20; Status DC Diphenhydramine HCl (Benadryl) 12.5 mg Q4HP PRN IV ITCHING; Start 08/17/17 at 08:00; Stop 08/20/17 at 11:37; Status DC Enoxaparin Sodium (Lovenox) 40 mg DAILY SC Last administered on 08/20/17 08:54 ; Start 08/16/17 at 09:00; Stop 08/21/17 at 19:37; Status DC Enoxaparin Sodium (Lovenox) 40 mg DAILY@2100 SC Last administered on 21:04; Start 08/21/17 at 21:00; Stop 09/08/17 at 20:59 Ertapenem 1 gm/ Sodium Chloride 50 ml @ 100 mls/hr Q24H IV Last administered on 09/03/17 18:00; Start 09/03/17 at 17:00; Stop 09/10/17 at 16:59 Ertapenem 1 gm/ Sodium Chloride 50 ml @ 100 mls/hr Q24H IV Last administered on 08/29/17 17:42; Start 08/16/17 at 17:00; Stop 08/30/17 at 14:33; Status DC Fat Emulsion Intravenous 500 ml @ 20 mls/hr ONCE@1800 IV Last administered on 08/24/17 17:49; Start 08/24/17 at 18:00; Stop 08/25/17 at 17:59; Status DC Fat Emulsion Intravenous 500 ml @ 20 mls/hr ONCE@1800 IV Last administered on 08/25/17 17:14; Start 08/25/17 at 18:00; Stop 08/26/17 at 17:59; Status DC Fat Emulsion Intravenous 500 ml @ 20 mls/hr ONCE@1800 IV Last administered on 08/26/17 17:37; Start 08/26/17 at 18:00; Stop 08/27/17 at 17:59; Status DC Fat Emulsion Intravenous 500 ml @ 20 mls/hr ONCE@1800 IV Last administered on 08/27/17 17:39; Start 08/27/17 at 18:00; Stop 08/28/17 at 17:59; Status DC Fat Emulsion Intravenous 500 ml @ 20 mls/hr ONCE@1800 IV Last administered on 08/28/17 18:05; Start 08/28/17 at 18:00; Stop 08/29/17 at 17:59; Status DC Fat Emulsion Intravenous 500 ml @ 20 mls/hr ONCE@1800 IV Last administered on 08/29/17 17:42; Start 08/29/17 at 18:00; Stop 08/30/17 at 17:59; Status DC Fat Emulsion Intravenous 500 ml @ 20 mls/hr ONCE@1800 IV Last administered on 08/30/17 18:35; Start 08/30/17 at 18:00; Stop 08/31/17 at 17:59; Status DC Fentanyl Citrate (Sublimaze) 25 mcg Q5MP PRN IV MODERATE PAIN (PS 4-7) Last administered on 08/23/17 18:46; Start 08/23/17 at 18:30; Stop 08/23/17 at 19 :30; Status DC Fentanyl Citrate (Sublimaze) 25 mcg Q5MP PRN IV MODERATE PAIN (PS 4-7); Start 08/16/17 at 00:00; Stop 08/16/17 at 01:15; Status DC Fluconazole 100 mg/IV Miscellaneous Supplies 50 ml @ 50 mls/hr Q24H IV Last administered on 09/03/17 18:59; Start 08/24/17 at 18:00; Stop 09/06/17 at 17 :59 Heparin Sodium (Heparin (Flush)) 200 units ASDIRECTED PRN IV SEE LABEL COMMENTS Last administered on 09/04/17 10:19; Start 08/24/17 at 12:15; Stop 09/23/17 at 12:14 Heparin Sodium (Heparin (Flush)) 200 units PICC IV Last administered on 06:02; Start 08/24/17 at 18:00; Stop 09/23/17 at 17:59 Heparin Sodium (Heparin Lock Flush 10units/ml) 10 units ASDIRECTED PRN IV SEE LABEL COMMENTS; Start 08/20/17 at 20:45; Stop 08/21/17 at 14:31; Status DC Heparin Sodium (Heparin Lock Flush 10units/ml) 10 units HLF IV Last administered on 08/21/17 05:13; Start 08/20/17 at 22:00; Stop 08/21/17 at 14: 31; Status DC Home Med (Med Rec Complete!) ASDIRECTED XX ; Start 08/15/17 at 16:15; Stop 08/15/17 at 16:15; Status DC Influenza Virus Vaccine (Fluzone High Dose) 0.5 ml ASDIRECTED IM Last administered on 08/19/17 10:15; Start 08/16/17 at 11:15; Stop 08/19/17 at 14:14 ; Status DC Insulin Human Lispro (HumaLOG INSULIN) See Protocol Table Q6H SC Last administered on 08/25/17 11:50; Start 08/24/17 at 18:00; Stop 08/25/17 at 12 :01; Status DC Insulin Human Lispro (HumaLOG INSULIN) See Protocol Table Q6H SC Last administered on 08/26/17 11:40; Start 08/25/17 at 18:00; Stop 08/26/17 at 12 :01; Status DC Insulin Human Lispro (HumaLOG INSULIN) See Protocol Table Q6H SC Last administered on 08/27/17 12:09; Start 08/26/17 at 18:00; Stop 08/27/17 at 12 :01; Status DC Insulin Human Lispro (HumaLOG INSULIN) See Protocol Table Q6H SC Last administered on 08/28/17 12:15; Start 08/27/17 at 18:00; Stop 08/28/17 at 12 :01; Status DC Insulin Human Lispro (HumaLOG INSULIN) See Protocol Table Q6H SC Last administered on 08/29/17 12:33; Start 08/28/17 at 18:00; Stop 08/29/17 at 15 :00; Status DC Insulin Human Lispro (HumaLOG INSULIN) See Protocol Table Q6H SC Last administered on 08/30/17 13:25; Start 08/29/17 at 18:00; Stop 08/30/17 at 12 :01; Status DC Insulin Human Lispro (HumaLOG INSULIN) See Protocol Table Q6H SC Last administered on 08/31/17 11:43; Start 08/30/17 at 18:00; Stop 08/31/17 at 15 :00; Status DC Isosorbide Mononitrate (Imdur) 30 mg DAILY PO Last administered on 09/04/17 10:18; Start 08/19/17 at 09:00; Stop 09/18/17 at 08:59 Lactated Ringer's 1,000 ml @ 100 mls/hr Q10H IV ; Start 08/23/17 at 18:30; Stop 08/23/17 at 19:30; Status DC Lactated Ringer's 1,000 ml @ 100 mls/hr Q10H IV Last administered on 08:54; Start 08/15/17 at 17:00; Stop 08/20/17 at 11:37; Status DC Lactated Ringer's 1,000 ml @ 100 mls/hr Q10H IV ; Start 08/16/17 at 00:00; Stop 08/16/17 at 01:15; Status DC Lactated Ringer's 1,000 ml @ 200 mls/hr Q5H IV Last administered on 04:00; Start 08/22/17 at 18:00; Stop 08/24/17 at 07:46; Status DC Magnesium Hydroxide (Milk Of Magnesia) 30 ml DAILYPRN PRN PO CONSTIPATION; Start 08/15/17 at 23:15; Stop 08/25/17 at 07:59; Status DC Metoprolol Tartrate (Lopressor) 25 mg BID PO Last administered on 09/03/17 21 :04; Start 08/15/17 at 21:00; Stop 09/04/17 at 07:48; Status DC Metoprolol Tartrate (Lopressor) 25 mg Q8H PO Last administered on 09/04/17 08 :33; Start 09/04/17 at 06:00; Stop 10/04/17 at 05:59 Midazolam HCl (Versed) 2 mg Q15MP PRN IV AGITATION Last administered on 05:04; Start 08/16/17 at 00:00; Stop 08/16/17 at 10:41; Status DC Miscellaneous (Unresolved Clarification Entry) SEE LABEL COMMENTS UNRESOLVED XX ; Start 08/21/17 at 00:01; Stop 08/21/17 at 19:37; Status DC Morphine Sulfate (Morphine Sulfate In 0.9%Nacl Iv Bag) Concentration 1 mg/ml ASDIRECTED PRN IV SEE LABEL COMMENTS Last administered on 08/31/17 10:45; Start 08/23/17 at 18:00; Stop 09/01/17 at 09:20; Status DC Morphine Sulfate (Morphine Sulfate In 0.9%Nacl Iv Bag) Concentration 1 mg/ml ASDIRECTED PRN IV SEE LABEL COMMENTS Last administered on 08/18/17 18:52; Start 08/17/17 at 08:00; Stop 08/20/17 at 11:37; Status DC Morphine Sulfate (Morphine Sulfate Inj) 2 mg Q2HP PRN IV BREAKTHROUGH PAIN Last administered on 09/02/17 13:25; Start 09/01/17 at 09:30; Stop 09/08/17 at 09:29 Morphine Sulfate (Morphine Sulfate Inj) 2 mg Q2HP PRN IV PAIN Last administered on 08/17/17 06:42; Start 08/16/17 at 00:00; Stop 08/17/17 at 07:53 ; Status DC Morphine Sulfate (Morphine Sulfate Inj) 4 mg Q1H PRN IV SEVERE PAIN (PS 8-10); Start 08/15/17 at 23:15; Stop 08/15/17 at 23:53; Status DC Morphine Sulfate (Morphine Sulfate Inj) 4 mg Q4HP PRN IV SEVERE PAIN (PS 8-10) Last administered on 08/23/17 09:18; Start 08/20/17 at 11:45; Stop 08/23/17 at 17:57; Status DC Multivitamins (Theragram-M) 1 tab DAILY PO Last administered on 08/24/17 08: 29; Start 08/19/17 at 09:00; Stop 08/25/17 at 07:59; Status DC Multivitamins 10 ml/Chromium/ Copper/Manganese/ Seleni/Zn 1 ml/ Amino Ac/ Electrol/ Dextrose/Calcium 2,011 ml @ 50 mls/hr ONCE@1800 IV Last administered on 08/27/17 17:39; Start 08/27/17 at 18:00; Stop 08/28/17 at 17 :59; Status DC Multivitamins 10 ml/Chromium/ Copper/Manganese/ Seleni/Zn 1 ml/ Amino Ac/ Electrol/ Dextrose/Calcium 2,011 ml @ 50 mls/hr ONCE@1800 IV Last administered on 08/29/17 17:42; Start 08/29/17 at 18:00; Stop 08/30/17 at 17 :59; Status DC Multivitamins 10 ml/Chromium/ Copper/Manganese/ Seleni/Zn 1 ml/ Amino Ac/ Electrol/ Dextrose/Calcium 2,011 ml @ 85 mls/hr ONCE@1800 IV Last administered on 08/24/17 17:49; Start 08/24/17 at 18:00; Stop 08/25/17 at 17 :59; Status DC Nalbuphine HCl (Nubain) 2.5 mg Q6HP PRN IV PRURITIS; Start 08/23/17 at 18:00; Stop 09/01/17 at 09:20; Status DC Nalbuphine HCl (Nubain) 2.5 mg Q6HP PRN IV PRURITIS; Start 08/17/17 at 08:00; Stop 08/20/17 at 11:37; Status DC Naloxone HCl (Narcan) 0.1 mg Q5MP PRN IV SEE LABEL COMMENTS; Start 08/23/17 at 18:00; Stop 09/01/17 at 09:20; Status DC Naloxone HCl (Narcan) 0.1 mg Q5MP PRN IV SEE LABEL COMMENTS; Start 08/17/17 at 08:00; Stop 08/20/17 at 11:37; Status DC Nitroglycerin (Nitrostat (1/ 150)) 0.4 mg Q5MP PRN SL CHEST PAIN; Start at 09:30; Stop 09/18/17 at 09:29 Non-Formulary Medication (Epidural/DRAW OFF WORKER Mckenna) USE THIS ENTRY TO VEND ... Q1M PRN XX SEE LABEL COMMENTS; Start 08/23/17 at 18:00; Stop 09/01/17 at 09:20; Status DC Non-Formulary Medication (Epidural/DRAW OFF WORKER Mckenna) USE THIS ENTRY TO VEND ... Q1M PRN XX SEE LABEL COMMENTS; Start 08/17/17 at 08:00; Stop 08/20/17 at 11:37; Status DC Octreotide Acetate (SandoSTATIN) 100 mcg Q8H SC Last administered on 05:03; Start 08/20/17 at 14:00; Stop 08/24/17 at 07:37; Status DC Octreotide Acetate (SandoSTATIN) 200 mcg Q8H SC Last administered on 05:23; Start 08/24/17 at 14:00; Stop 08/29/17 at 09:05; Status DC Ondansetron HCl (ZOFRAN INJection) 4 mg Q4HP PRN IV NAUSEA OR VOMITING; Start 08/23/17 at 18:30; Stop 08/23/17 at 19:30; Status DC Ondansetron HCl (ZOFRAN INJection) 4 mg Q4HP PRN IV NAUSEA OR VOMITING; Start 08/16/17 at 00:00; Stop 08/16/17 at 01:15; Status DC Ondansetron HCl (ZOFRAN INJection) 4 mg Q6HP PRN IV NAUSEA; Start 08/23/17 at 18:00; Stop 09/01/17 at 09:20; Status DC Ondansetron HCl (ZOFRAN INJection) 4 mg Q6HP PRN IV NAUSEA OR VOMITING; Start 08/15/17 at 23:15; Stop 08/27/17 at 09:26; Status DC Ondansetron HCl (ZOFRAN INJection) 4 mg Q6HP PRN IV NAUSEA; Start 08/17/17 at 08:00; Stop 08/20/17 at 11:37; Status DC Pantoprazole Sodium (Protonix) 40 mg BID IV Last administered on 09/04/17 10: 19; Start 08/23/17 at 21:00; Stop 09/22/17 at 20:59 Pantoprazole Sodium (Protonix) 40 mg BID IV Last administered on 08/23/17 09: 34; Start 08/16/17 at 09:00; Stop 08/23/17 at 17:56; Status DC Phenol (Chloraseptic (Cepacol)) 1 spray Q2HP PRN MT SORE THROAT; Start at 15:45; Stop 09/30/17 at 15:44 Pneumococcal Polyvalent Vaccine (Prevnar 13) 0.5 ml ASDIRECTED IM Last administered on 08/19/17 10:16; Start 08/16/17 at 11:15; Stop 08/19/17 at 14:14 ; Status DC Propofol 1000 mg/ IV Miscellaneous Supplies 100 ml @ 6.68 mls/hr [id number] IV Last administered on 08/16/17 05:22; Start 08/15/17 at 23:47; Stop 08/16/17 at 10:41; Status DC Sodium Chloride 1,000 ml @ 15 mls/hr Q24H IV ; Start 08/23/17 at 17:53; Stop 08/24/17 at 07:51; Status DC Sodium Chloride 1,000 ml @ 15 mls/hr Q24H IV ; Start 08/17/17 at 07:49; Stop 08/17/17 at 07:55; Status DC Sodium Chloride 1,000 ml @ 30 mls/hr Q24H IV Last administered on 08/31/17 17:17; Start 08/24/17 at 18:00; Stop 09/03/17 at 01:57; Status DC Sodium Chloride 1,000 ml @ 200 mls/hr Q5H IV Last administered on 08/24/17 14:00; Start 08/24/17 at 07:45; Stop 08/24/17 at 17:21; Status DC Sodium Chloride (Saline Lock Flush) 10 ml ASDIRECTED PRN IV SEE LABEL COMMENTS Last administered on 09/04/17 10:20; Start 08/24/17 at 12:15; Stop 09/23/17 at 12:14 Sodium Chloride (Saline Lock Flush) 10 ml ASDIRECTED PRN IV SEE LABEL COMMENTS ; Start 08/20/17 at 20:45; Stop 08/21/17 at 14:31; Status DC Sodium Chloride (Saline Lock Flush) 10 ml PICC IV Last administered on 06:03; Start 08/24/17 at 18:00; Stop 09/23/17 at 17:59 Sodium Chloride (Saline Lock Flush) 10 ml SLF IV Last administered on 05:13; Start 08/20/17 at 22:00; Stop 08/21/17 at 14:31; Status DC Vitamin D (Vitamin D) 1,000 units DAILY PO Last administered on 08/23/17 09: 36; Start 08/19/17 at 09:00; Stop 08/23/17 at 20:45; Status DC Zolpidem Tartrate (Ambien) 2.5 mg QHS PRN PO INSOMNIA Last administered on 01:20; Start 09/01/17 at 18:15; Stop 09/08/17 at 18:14 Allergies Coded Allergies: Penicillins (Verified Adverse Reaction, Intermediate, STOMACH ULCERS MANY YEARS AGO, 09/03/17) Objective Physical Examination Examination GENERAL APPEARANCE: Looks sleepy opens eyes spontaneously and answers questions appropriately but would go back to sleep. SKIN: Warm and dry. HEENT: Anicteric sclerae, lips and mucosa are dry, NG tube in place and working. NECK: Supple, no thyromegaly. No obvious jugular venous distention. LUNGS: Clear to auscultation bilaterally. No wheezing appreciated. HEART: No chest wall abnormalities. Regular rate and rhythm with no murmurs appreciated. ABDOMEN: Abdomen is round, soft, nondistended.YORDY drain with bilious material on the right side, Retrograde gastrojejenostomy tube capped, jejunostomy feeding tube capped (Patient npo) EXTREMITIES: Extremities have no deformities. No edema identified. Vital Signs Vital Signs Date Time Temp Pulse Resp B/P (MAP) Pulse Ox O2 Delivery O2 Flow Rate FiO2 09/04/17 10:18 130/80 09/04/17 08:23 70 09/04/17 07:50 97.4 16 95 Room Air I&Os I&O- Last 24 Hours up to 6 AM 09/05/17 06:00 Output Total 60 ml Balance -60 ml Laboratory Data Labs 24H Laboratory Tests 2 09/03/17 18:01: Total Creatine Kinase 27L, Creatine Kinase MB 1.0, Creatine Kinase MB Relative Index 3.70, Troponin I < 0.02 09/04/17 05:44: Nucleated Red Blood Cells % (auto) 0.0, Anion Gap 9, Glomerular Filtration Rate > 60.0, Blood Urea Nitrogen 24H, Creatinine 0.88, Sodium Level 136, Potassium Level 3.9, Chloride Level 99, Carbon Dioxide Level 28, Calcium Level 8.5L, Aspartate Amino Transf (AST/SGOT) 88H, Alanine Aminotransferase (ALT/SGPT) 190H , Alkaline Phosphatase 250H, Total Bilirubin 3.0H, Total Protein 7.7, Albumin 2.4L, Magnesium Level 2.5H, Albumin/Globulin Ratio 0.45L CBC/BMP Laboratory Tests 09/04/17 05:44 Red Blood Count 3.87 L, Mean Corpuscular Volume 92.8, Mean Corpuscular Hemoglobin 31.3, Mean Corpuscular Hemoglobin Concent 33.7, Red Cell Distribution Width 14.1, Calcium Level 8.5 L, Aspartate Amino Transf (AST/SGOT) 88 H, Alanine Aminotransferase (ALT/SGPT) 190 H, Alkaline Phosphatase 250 H, Total Bilirubin 3.0 H, Total Protein 7.7, Albumin 2.4 L Impression Perforated scarred duodenal ulcer (bulb toward 2nd portion of duodenum) POD20 Exploratory Laparotomy, Omental patch closure of perforation, lateral internal duodenostomy, Pyloric Exclusion, Feeding jejunostomy POD12 Re-exploration Repair of site of duodenostomy - site of leak, retrograde gastrojejunostomy to duodenum (for drainage), washout of abdomen I restarted him on Invanz 1 gm IV daily for concerns of the ongoing leak causing infectious/inflammatory process that is provoking the intermittent arrythmias. He has not had any since the antibiotics got restarted. Plan for today is to try and get the retrograde gastrojejunostomy tube to work by replacing it with an NG tube under fluoro guidance which would hopefully work better under suction (would not collapse). I have asked Dr. Kim to help me with the procedure. Plan / VTE VTE Prophylaxis Ordered?: Yes Plan / Urinary Catheter Urinary Catheter: D/C Davis Reason for insertion/continuin: Critical Pt monitoring ORA SIMPSON MD Sep 04, 2017 12:45
[2017-09-04] MEDS ORDERED: LIDOCAINE 2% MDV 20 ML VIAL As Ordered ONE (16:57)
[2017-09-04] MEDS ORDERED: GASTROGRAFIN SOLUTION 30ML (Q9963) As Ordered ONE (17:00)
[2017-09-04] MEDS ORDERED: MIDAZOLAM INJ 2 MG/2 ML VIAL (J2250) As Ordered ONE (17:56)
[2017-09-04] MEDS ORDERED: fentaNYL 100 MCG/2 ML INJECTION (J3010) As Ordered ONE (19:27)
[2017-09-04] MEDS: ERTAPENEM SODIUM 1 GM in NS MINI-BAG PLUS 50 ML IV SCH (22:15)
[2017-09-04] MEDS: FLUCONAZOLE 100 MG in APPROPRIATE DILUENT 1 EA IV SCH (22:15)
[2017-09-04] MEDS: ATORVASTATIN 20 MG TAB PO SCH (22:16)
[2017-09-04] MEDS: ENOXAPARIN 40 MG/0.4 ML SYRINGE (J1650) SC SCH (22:17)
[2017-09-05] VITALS (7 sets, daily range): BP systolic 111–121; BP diastolic 67–74
[2017-09-05] MEDS: MORPHINE 2 MG/ML 1ML SYRINGE IV PRN ×2 (00:16→03:48)
[2017-09-05] MEDS: METOPROLOL TART 25 MG TABLET PO SCH ×3 (05:30→21:33)
[2017-09-05] MEDS: SODIUM CHLORIDE 0.9% INJ 10 ML SYR IV SCH ×3 (05:31→19:48)
[2017-09-05 05:50] LABS: MEAN CORPUSCULAR HEMOGLOBIN 31.8 pg (27.0-33.0); MEAN CORPUSCULAR HGB CONC 33.9 g/dl (32.0-36.5); MEAN CORPUSCULAR VOLUME 93.9 fl (80.0-96.0); PLATELET COUNT, AUTOMATED 343 10^3/uL (150-450); RED CELL DISTRIBUTION WIDTH 14.4 % (11.5-14.5); WHITE BLOOD COUNT 10.4 10^3/uL (4.0-10.0)
[2017-09-05] MEDS: NORCO, ANEXSIA 5/325MG TABLET (HYDROcodone/ACETAMINOPHEN) PO PRN ×2 (06:10→17:34)
[2017-09-05 06:22] LABS: ALBUMIN 2.4 GM/DL (3.2-5.2); ALBUMIN/GLOBULIN RATIO 0.43 (1.00-1.93); ALKALINE PHOSPHATASE 265 U/L (45-117); ALT/SGPT 172 U/L (12-78); ANION GAP 10 MEQ/L (8-16); AST/SGOT 78 U/L (15-37); BILIRUBIN,TOTAL 2.8 MG/DL (0.2-1.0); BLOOD UREA NITROGEN 36 MG/DL (7-18); CALCIUM LEVEL 8.5 MG/DL (8.8-10.2); CARBON DIOXIDE LEVEL 27 MEQ/L (21-32); CHLORIDE LEVEL 100 MEQ/L (98-107); CREATININE FOR GFR 1.07 MG/DL (0.70-1.30); GLOMERULAR FILTRATION RATE > 60.0 (>49); GLUCOSE, FASTING 97 MG/DL (80-110); MAGNESIUM LEVEL 2.5 MG/DL (1.8-2.4); POTASSIUM SERUM 4.2 MEQ/L (3.5-5.1); SODIUM LEVEL 137 MEQ/L (136-145)
[2017-09-05] MEDS: IPRATROPIUM 0.5MG/ALBUTEROL 2.5MG INH SOL UD 3ML (DUONEB)(J7620) NEB SCH ×4 (07:25→19:27)
--- NOTE | 2017-09-05 07:49 | IPN ---
DATE: 09/05/2017 Mr. Dill looks a little better today. He certainly admits that he has less abdominal pain and seems to have a little more energy. He has not had any arrhythmias now for almost 48 hours which is encouraging on its own. He still has multiple drains and NG tube and requires feeding. He is looking forward to start eating something. Vital Signs: Blood pressure 128/70. Heart rate has been mostly in the 70s. He remains afebrile. The saturation is in mid to high 90s on room air. Fluid balance yesterday was negative about 1695. Weight is documented 94.3 kg. He is alert and oriented and appropriate. His jugular venous pulse (JVP) is flat. I do not appreciate any carotid bruits. Lungs are clear with good air movement, limited mostly by abdominal pain upon taking deep breath. Abdomen is somewhat diffusely tender, even though it remained soft. I do not appreciate any guarding and bowel sounds are present. There is no peripheral edema. LABORATORY DATA: His CBC revealed WBC count 10.4, hemoglobin 12.5, hematocrit 36.9 and platelet count 343,000. Basic metabolic panel is normal. His liver function tests continued to improve. His AST is down to 78, ALT 172 and alkaline phosphatase 265. Albumin is 2.4. Total bilirubin is also down to 2.8, direct bilirubin 2.5. ASSESSMENT/PLAN: Mr. Dill is a 66-year-old man who I was asked to see because he had episodes of nonsustained ventricular tachycardia in the setting of recovery from extensive abdominal surgery with reoperation a few days later. He had a leak from his jejunostomy tube and it is likely that the pain and the inflammation caused by leaking content was irritating his heart. There was never any evidence for ischemia on ECG. At this point, he has been arrhythmia free for approximately 48 hours and he feels overall better, which is certainly encouraging. I will continue current management with beta blockers and statins and at some point we should introduce aspirin. I do not believe there is any emergency in this matter, but once surgery is comfortable, please feel free to put him back on aspirin 81 mg daily. Otherwise, I will stop rounding on him on a daily basis, but I will be on standby if there are any more arrhythmias. Please do not hesitate to contact me.
--- NOTE | 2017-09-05 08:41 | IPNPDOC ---
Subjective General Date/Time Seen The patient was seen on 09/05/17 at 08:37. Subject Chief Complaint/History The patient is a 66-year-old male admitted with a reason for visit of Perforated Duodenal Ulcer. Yesterday, we attempted to replace the operatively placed retrograde gastrojejunostomy tube to a different drain to try to internally drain the duodenal leak. unfortuantely we were not successful. A gastrostomy tube has been left in its placed. Overnight there was only 80 mLs of drainage from the YORDY drain and 400 mLs in the gastrostomy tube (NGT is clamped). Patient reports he has less abdominal pain today. Denies nausea. Passing flatus but no BM the past three days. Afebrile. Current Medications Current Medications Current Medications Acetaminophen (Tylenol Tab) 650 mg Q4HP PRN PO MILD PAIN or TEMP > 101; Start 08/15/17 at 23:15; Stop 09/14/17 at 23:14 Acetaminophen/ Hydrocodone Bitart ([place], Anexsia 5/325) 1 tab Q4HP PRN PO MILD /MODERATE PAIN (PS 1-7); Start 08/20/17 at 11:45; Stop 08/23/17 at 20:45; Status DC Acetaminophen/ Hydrocodone Bitart ([place], Anexsia 5/325) 2 tab Q4HP PRN PO SEVERE PAIN (PS 8-10) Last administered on 08/23/17 05:56; Start 08/20/17 at 11:45; Stop 08/23/17 at 20:45; Status DC Acetaminophen/ Hydrocodone Bitart ([place], Anexsia 5/325) 2 tab Q6HP PRN PO SEVERE PAIN (PS 8-10) Last administered on 09/05/17 06:10; Start 09/01/17 at 09:30; Stop 09/08/17 at 09:29 Albuterol Sulfate (Proventil Neb) 2.5 mg Q2HP PRN NEB SHORTNESS OF BREATH; Start 08/16/17 at 00:00; Stop 08/27/17 at 09:26; Status DC Albuterol/ Ipratropium (Duoneb (Ipr 0.5mg/Alb 2.5mg)) 3 ml RQ4H NEB Last administered on 08/16/17 09:25; Start 08/16/17 at 00:00; Stop 08/16/17 at 10:43 ; Status DC Albuterol/ Ipratropium (Duoneb (Ipr 0.5mg/Alb 2.5mg)) 3 ml RQID NEB Last administered on 09/05/17 07:25; Start 08/16/17 at 12:00; Stop 09/15/17 at 11: 59 Amino Ac/Electrol/ Dextrose/Calcium 2,000 ml @ 50 mls/hr ONCE@1800 IV Last administered on 08/28/17 18:06; Start 08/28/17 at 18:00; Stop 08/29/17 at 17 :59; Status DC Amino Ac/Electrol/ Dextrose/Calcium 2,000 ml @ 50 mls/hr ONCE@1800 IV Last administered on 08/30/17 18:35; Start 08/30/17 at 18:00; Stop 08/31/17 at 17 :59; Status DC Amino Ac/Electrol/ Dextrose/Calcium 2,000 ml @ 75 mls/hr ONCE@1800 IV Last administered on 08/25/17 17:15; Start 08/25/17 at 18:00; Stop 08/26/17 at 17 :59; Status DC Amino Ac/Electrol/ Dextrose/Calcium 2,000 ml @ 75 mls/hr ONCE@1800 IV Last administered on 08/26/17 17:38; Start 08/26/17 at 18:00; Stop 08/27/17 at 17 :59; Status DC Atorvastatin Calcium (Lipitor) 20 mg QHS PO Last administered on 09/04/17 22: 16; Start 09/01/17 at 21:00; Stop 10/01/17 at 20:59 Atorvastatin Calcium (Lipitor) 40 mg QHS PO Last administered on 08/24/17 21: 19; Start 08/19/17 at 21:00; Stop 08/25/17 at 07:59; Status DC Chlorhexidine Gluconate (Chlorhexidine Gluconate) SWAB/BRUSH ORAL CAVITY BID MT ; Start 08/16/17 at 09:00; Stop 08/16/17 at 10:41; Status DC Cyclobenzaprine HCl (Flexeril) 10 mg DAILY PRN PO MUSCLE SPASMS; Start at 09:30; Stop 08/27/17 at 09:26; Status DC Diphenhydramine HCl (Benadryl) 12.5 mg Q4HP PRN IV ITCHING; Start 08/23/17 at 18:00; Stop 09/01/17 at 09:20; Status DC Diphenhydramine HCl (Benadryl) 12.5 mg Q4HP PRN IV ITCHING; Start 08/17/17 at 08:00; Stop 08/20/17 at 11:37; Status DC Enoxaparin Sodium (Lovenox) 40 mg DAILY SC Last administered on 08/20/17 08:54 ; Start 08/16/17 at 09:00; Stop 08/21/17 at 19:37; Status DC Enoxaparin Sodium (Lovenox) 40 mg DAILY@2100 SC Last administered on 22:17; Start 08/21/17 at 21:00; Stop 09/08/17 at 20:59 Ertapenem 1 gm/ Sodium Chloride 50 ml @ 100 mls/hr Q24H IV Last administered on 09/04/17 22:15; Start 09/03/17 at 17:00; Stop 09/10/17 at 16:59 Ertapenem 1 gm/ Sodium Chloride 50 ml @ 100 mls/hr Q24H IV Last administered on 08/29/17 17:42; Start 08/16/17 at 17:00; Stop 08/30/17 at 14:33; Status DC Fat Emulsion Intravenous 500 ml @ 20 mls/hr ONCE@1800 IV Last administered on 08/24/17 17:49; Start 08/24/17 at 18:00; Stop 08/25/17 at 17:59; Status DC Fat Emulsion Intravenous 500 ml @ 20 mls/hr ONCE@1800 IV Last administered on 08/25/17 17:14; Start 08/25/17 at 18:00; Stop 08/26/17 at 17:59; Status DC Fat Emulsion Intravenous 500 ml @ 20 mls/hr ONCE@1800 IV Last administered on 08/26/17 17:37; Start 08/26/17 at 18:00; Stop 08/27/17 at 17:59; Status DC Fat Emulsion Intravenous 500 ml @ 20 mls/hr ONCE@1800 IV Last administered on 08/27/17 17:39; Start 08/27/17 at 18:00; Stop 08/28/17 at 17:59; Status DC Fat Emulsion Intravenous 500 ml @ 20 mls/hr ONCE@1800 IV Last administered on 08/28/17 18:05; Start 08/28/17 at 18:00; Stop 08/29/17 at 17:59; Status DC Fat Emulsion Intravenous 500 ml @ 20 mls/hr ONCE@1800 IV Last administered on 08/29/17 17:42; Start 08/29/17 at 18:00; Stop 08/30/17 at 17:59; Status DC Fat Emulsion Intravenous 500 ml @ 20 mls/hr ONCE@1800 IV Last administered on 08/30/17 18:35; Start 08/30/17 at 18:00; Stop 08/31/17 at 17:59; Status DC Fentanyl Citrate (Sublimaze) 25 mcg Q5MP PRN IV MODERATE PAIN (PS 4-7) Last administered on 08/23/17 18:46; Start 08/23/17 at 18:30; Stop 08/23/17 at 19 :30; Status DC Fentanyl Citrate (Sublimaze) 25 mcg Q5MP PRN IV MODERATE PAIN (PS 4-7); Start 08/16/17 at 00:00; Stop 08/16/17 at 01:15; Status DC Fluconazole 100 mg/IV Miscellaneous Supplies 50 ml @ 50 mls/hr Q24H IV Last administered on 09/04/17 22:15; Start 08/24/17 at 18:00; Stop 09/06/17 at 17 :59 Heparin Sodium (Heparin (Flush)) 200 units ASDIRECTED PRN IV SEE LABEL COMMENTS Last administered on 09/04/17 10:19; Start 08/24/17 at 12:15; Stop 09/23/17 at 12:14 Heparin Sodium (Heparin (Flush)) 200 units PICC IV Last administered on 05:31; Start 08/24/17 at 18:00; Stop 09/23/17 at 17:59 Heparin Sodium (Heparin Lock Flush 10units/ml) 10 units ASDIRECTED PRN IV SEE LABEL COMMENTS; Start 08/20/17 at 20:45; Stop 08/21/17 at 14:31; Status DC Heparin Sodium (Heparin Lock Flush 10units/ml) 10 units HLF IV Last administered on 08/21/17 05:13; Start 08/20/17 at 22:00; Stop 08/21/17 at 14: 31; Status DC Home Med (Med Rec Complete!) ASDIRECTED XX ; Start 08/15/17 at 16:15; Stop 08/15/17 at 16:15; Status DC Influenza Virus Vaccine (Fluzone High Dose) 0.5 ml ASDIRECTED IM Last administered on 08/19/17 10:15; Start 08/16/17 at 11:15; Stop 08/19/17 at 14:14 ; Status DC Insulin Human Lispro (HumaLOG INSULIN) See Protocol Table Q6H SC Last administered on 08/25/17 11:50; Start 08/24/17 at 18:00; Stop 08/25/17 at 12 :01; Status DC Insulin Human Lispro (HumaLOG INSULIN) See Protocol Table Q6H SC Last administered on 08/26/17 11:40; Start 08/25/17 at 18:00; Stop 08/26/17 at 12 :01; Status DC Insulin Human Lispro (HumaLOG INSULIN) See Protocol Table Q6H SC Last administered on 08/27/17 12:09; Start 08/26/17 at 18:00; Stop 08/27/17 at 12 :01; Status DC Insulin Human Lispro (HumaLOG INSULIN) See Protocol Table Q6H SC Last administered on 08/28/17 12:15; Start 08/27/17 at 18:00; Stop 08/28/17 at 12 :01; Status DC Insulin Human Lispro (HumaLOG INSULIN) See Protocol Table Q6H SC Last administered on 08/29/17 12:33; Start 08/28/17 at 18:00; Stop 08/29/17 at 15 :00; Status DC Insulin Human Lispro (HumaLOG INSULIN) See Protocol Table Q6H SC Last administered on 08/30/17 13:25; Start 08/29/17 at 18:00; Stop 08/30/17 at 12 :01; Status DC Insulin Human Lispro (HumaLOG INSULIN) See Protocol Table Q6H SC Last administered on 08/31/17 11:43; Start 08/30/17 at 18:00; Stop 08/31/17 at 15 :00; Status DC Isosorbide Mononitrate (Imdur) 30 mg DAILY PO Last administered on 09/04/17 10:18; Start 08/19/17 at 09:00; Stop 09/18/17 at 08:59 Lactated Ringer's 1,000 ml @ 100 mls/hr Q10H IV ; Start 08/23/17 at 18:30; Stop 08/23/17 at 19:30; Status DC Lactated Ringer's 1,000 ml @ 100 mls/hr Q10H IV Last administered on 08:54; Start 08/15/17 at 17:00; Stop 08/20/17 at 11:37; Status DC Lactated Ringer's 1,000 ml @ 100 mls/hr Q10H IV ; Start 08/16/17 at 00:00; Stop 08/16/17 at 01:15; Status DC Lactated Ringer's 1,000 ml @ 200 mls/hr Q5H IV Last administered on 04:00; Start 08/22/17 at 18:00; Stop 08/24/17 at 07:46; Status DC Magnesium Hydroxide (Milk Of Magnesia) 30 ml DAILYPRN PRN PO CONSTIPATION; Start 08/15/17 at 23:15; Stop 08/25/17 at 07:59; Status DC Metoprolol Tartrate (Lopressor) 25 mg BID PO Last administered on 09/03/17 21 :04; Start 08/15/17 at 21:00; Stop 09/04/17 at 07:48; Status DC Metoprolol Tartrate (Lopressor) 25 mg Q8H PO Last administered on 09/05/17 05 :30; Start 09/04/17 at 06:00; Stop 10/04/17 at 05:59 Midazolam HCl (Versed) 2 mg Q15MP PRN IV AGITATION Last administered on 05:04; Start 08/16/17 at 00:00; Stop 08/16/17 at 10:41; Status DC Miscellaneous (Unresolved Clarification Entry) SEE LABEL COMMENTS UNRESOLVED XX ; Start 08/21/17 at 00:01; Stop 08/21/17 at 19:37; Status DC Morphine Sulfate (Morphine Sulfate In 0.9%Nacl Iv Bag) Concentration 1 mg/ml ASDIRECTED PRN IV SEE LABEL COMMENTS Last administered on 08/31/17 10:45; Start 08/23/17 at 18:00; Stop 09/01/17 at 09:20; Status DC Morphine Sulfate (Morphine Sulfate In 0.9%Nacl Iv Bag) Concentration 1 mg/ml ASDIRECTED PRN IV SEE LABEL COMMENTS Last administered on 08/18/17 18:52; Start 08/17/17 at 08:00; Stop 08/20/17 at 11:37; Status DC Morphine Sulfate (Morphine Sulfate Inj) 2 mg Q2HP PRN IV BREAKTHROUGH PAIN Last administered on 09/05/17 03:48; Start 09/01/17 at 09:30; Stop 09/08/17 at 09:29 Morphine Sulfate (Morphine Sulfate Inj) 2 mg Q2HP PRN IV PAIN Last administered on 08/17/17 06:42; Start 08/16/17 at 00:00; Stop 08/17/17 at 07:53 ; Status DC Morphine Sulfate (Morphine Sulfate Inj) 4 mg Q1H PRN IV SEVERE PAIN (PS 8-10); Start 08/15/17 at 23:15; Stop 08/15/17 at 23:53; Status DC Morphine Sulfate (Morphine Sulfate Inj) 4 mg Q4HP PRN IV SEVERE PAIN (PS 8-10) Last administered on 08/23/17 09:18; Start 08/20/17 at 11:45; Stop 08/23/17 at 17:57; Status DC Multivitamins (Theragram-M) 1 tab DAILY PO Last administered on 08/24/17 08: 29; Start 08/19/17 at 09:00; Stop 08/25/17 at 07:59; Status DC Multivitamins 10 ml/Chromium/ Copper/Manganese/ Seleni/Zn 1 ml/ Amino Ac/ Electrol/ Dextrose/Calcium 2,011 ml @ 50 mls/hr ONCE@1800 IV Last administered on 08/27/17 17:39; Start 08/27/17 at 18:00; Stop 08/28/17 at 17 :59; Status DC Multivitamins 10 ml/Chromium/ Copper/Manganese/ Seleni/Zn 1 ml/ Amino Ac/ Electrol/ Dextrose/Calcium 2,011 ml @ 50 mls/hr ONCE@1800 IV Last administered on 08/29/17 17:42; Start 08/29/17 at 18:00; Stop 08/30/17 at 17 :59; Status DC Multivitamins 10 ml/Chromium/ Copper/Manganese/ Seleni/Zn 1 ml/ Amino Ac/ Electrol/ Dextrose/Calcium 2,011 ml @ 85 mls/hr ONCE@1800 IV Last administered on 08/24/17 17:49; Start 08/24/17 at 18:00; Stop 08/25/17 at 17 :59; Status DC Nalbuphine HCl (Nubain) 2.5 mg Q6HP PRN IV PRURITIS; Start 08/23/17 at 18:00; Stop 09/01/17 at 09:20; Status DC Nalbuphine HCl (Nubain) 2.5 mg Q6HP PRN IV PRURITIS; Start 08/17/17 at 08:00; Stop 08/20/17 at 11:37; Status DC Naloxone HCl (Narcan) 0.1 mg Q5MP PRN IV SEE LABEL COMMENTS; Start 08/23/17 at 18:00; Stop 09/01/17 at 09:20; Status DC Naloxone HCl (Narcan) 0.1 mg Q5MP PRN IV SEE LABEL COMMENTS; Start 08/17/17 at 08:00; Stop 08/20/17 at 11:37; Status DC Nitroglycerin (Nitrostat (1/ 150)) 0.4 mg Q5MP PRN SL CHEST PAIN; Start at 09:30; Stop 09/18/17 at 09:29 Non-Formulary Medication (Epidural/DYED RAW STOCK BLOWER FEEDER [place]) USE THIS ENTRY TO VEND ... Q1M PRN XX SEE LABEL COMMENTS; Start 08/23/17 at 18:00; Stop 09/01/17 at 09:20; Status DC Non-Formulary Medication (Epidural/DYED RAW STOCK BLOWER FEEDER [place]) USE THIS ENTRY TO VEND ... Q1M PRN XX SEE LABEL COMMENTS; Start 08/17/17 at 08:00; Stop 08/20/17 at 11:37; Status DC Octreotide Acetate (SandoSTATIN) 100 mcg Q8H SC Last administered on 05:03; Start 08/20/17 at 14:00; Stop 08/24/17 at 07:37; Status DC Octreotide Acetate (SandoSTATIN) 200 mcg Q8H SC Last administered on 05:23; Start 08/24/17 at 14:00; Stop 08/29/17 at 09:05; Status DC Ondansetron HCl (ZOFRAN INJection) 4 mg Q4HP PRN IV NAUSEA OR VOMITING; Start 08/23/17 at 18:30; Stop 08/23/17 at 19:30; Status DC Ondansetron HCl (ZOFRAN INJection) 4 mg Q4HP PRN IV NAUSEA OR VOMITING; Start 08/16/17 at 00:00; Stop 08/16/17 at 01:15; Status DC Ondansetron HCl (ZOFRAN INJection) 4 mg Q6HP PRN IV NAUSEA; Start 08/23/17 at 18:00; Stop 09/01/17 at 09:20; Status DC Ondansetron HCl (ZOFRAN INJection) 4 mg Q6HP PRN IV NAUSEA OR VOMITING; Start 08/15/17 at 23:15; Stop 08/27/17 at 09:26; Status DC Ondansetron HCl (ZOFRAN INJection) 4 mg Q6HP PRN IV NAUSEA; Start 08/17/17 at 08:00; Stop 08/20/17 at 11:37; Status DC Pantoprazole Sodium (Protonix) 40 mg BID IV Last administered on 09/04/17 22: 17; Start 08/23/17 at 21:00; Stop 09/22/17 at 20:59 Pantoprazole Sodium (Protonix) 40 mg BID IV Last administered on 08/23/17 09: 34; Start 08/16/17 at 09:00; Stop 08/23/17 at 17:56; Status DC Phenol (Chloraseptic (Cepacol)) 1 spray Q2HP PRN MT SORE THROAT; Start at 15:45; Stop 09/30/17 at 15:44 Pneumococcal Polyvalent Vaccine (Prevnar 13) 0.5 ml ASDIRECTED IM Last administered on 08/19/17 10:16; Start 08/16/17 at 11:15; Stop 08/19/17 at 14:14 ; Status DC Propofol 1000 mg/ IV Miscellaneous Supplies 100 ml @ 6.68 mls/hr [id number] IV Last administered on 08/16/17 05:22; Start 08/15/17 at 23:47; Stop 08/16/17 at 10:41; Status DC Sodium Chloride 1,000 ml @ 15 mls/hr Q24H IV ; Start 08/23/17 at 17:53; Stop 08/24/17 at 07:51; Status DC Sodium Chloride 1,000 ml @ 15 mls/hr Q24H IV ; Start 08/17/17 at 07:49; Stop 08/17/17 at 07:55; Status DC Sodium Chloride 1,000 ml @ 30 mls/hr Q24H IV Last administered on 08/31/17 17:17; Start 08/24/17 at 18:00; Stop 09/03/17 at 01:57; Status DC Sodium Chloride 1,000 ml @ 200 mls/hr Q5H IV Last administered on 08/24/17 14:00; Start 08/24/17 at 07:45; Stop 08/24/17 at 17:21; Status DC Sodium Chloride (Saline Lock Flush) 10 ml ASDIRECTED PRN IV SEE LABEL COMMENTS Last administered on 09/04/17 10:20; Start 08/24/17 at 12:15; Stop 09/23/17 at 12:14 Sodium Chloride (Saline Lock Flush) 10 ml ASDIRECTED PRN IV SEE LABEL COMMENTS ; Start 08/20/17 at 20:45; Stop 08/21/17 at 14:31; Status DC Sodium Chloride (Saline Lock Flush) 10 ml PICC IV Last administered on 05:31; Start 08/24/17 at 18:00; Stop 09/23/17 at 17:59 Sodium Chloride (Saline Lock Flush) 10 ml SLF IV Last administered on 05:13; Start 08/20/17 at 22:00; Stop 08/21/17 at 14:31; Status DC Vitamin D (Vitamin D) 1,000 units DAILY PO Last administered on 08/23/17 09: 36; Start 08/19/17 at 09:00; Stop 08/23/17 at 20:45; Status DC Zolpidem Tartrate (Ambien) 2.5 mg QHS PRN PO INSOMNIA Last administered on 01:20; Start 09/01/17 at 18:15; Stop 09/08/17 at 18:14 Allergies Coded Allergies: Penicillins (Verified Adverse Reaction, Intermediate, STOMACH ULCERS MANY YEARS AGO, 09/03/17) Objective Physical Examination Examination GENERAL APPEARANCE:Patient seen, laying in bed, awake, alert, and oriented. Comfortable, in no acute distress. SKIN: Warm and moist. HEENT: Normocephalic, atraumatic. [place] palpebral conjunctiva, anicteric sclerae. Lips and mucosa appear moist. NECK: Supple, no thyromegaly. No obvious jugular venous distention. LUNGS: Clear to auscultation bilaterally. No wheezing appreciated. HEART: No chest wall abnormalities. Regular rate and rhythm with no murmurs appreciated. ABDOMEN: Abdomen is round, soft, minimally distended, mildly tender at the right side, no reboud. New gastrostomy tube to LIS, functioning. Jejunostomy tube capped. Both exit sites, dry, clean. . EXTREMITIES: Extremities have no deformities. No edema identified Vital Signs Vital Signs Date Time Temp Pulse Resp B/P (MAP) Pulse Ox O2 Delivery O2 Flow Rate FiO2 09/05/17 07:30 97.7 82 20 111/68 (82) 98 Room Air Laboratory Data Labs 24H Laboratory Tests 2 09/05/17 05:30: Nucleated Red Blood Cells % (auto) 0.0, Anion Gap 10, Glomerular Filtration Rate > 60.0, Blood Urea Nitrogen 36H, Creatinine 1.07, Sodium Level 137, Potassium Level 4.2, Chloride Level 100, Carbon Dioxide Level 27, Calcium Level 8.5L, Aspartate Amino Transf (AST/SGOT) 78H, Alanine Aminotransferase (ALT/SGPT ) 172H, Alkaline Phosphatase 265H, Total Bilirubin 2.8H, Total Protein 8.0, Albumin 2.4L, Magnesium Level 2.5H, Albumin/Globulin Ratio 0.43L CBC/BMP Laboratory Tests 09/05/17 05:30 Red Blood Count 3.93 L, Mean Corpuscular Volume 93.9, Mean Corpuscular Hemoglobin 31.8, Mean Corpuscular Hemoglobin Concent 33.9, Red Cell Distribution Width 14.4, Calcium Level 8.5 L, Aspartate Amino Transf (AST/SGOT) 78 H, Alanine Aminotransferase (ALT/SGPT) 172 H, Alkaline Phosphatase 265 H, Total Bilirubin 2.8 H, Total Protein 8.0, Albumin 2.4 L Impression Perforated scarred duodenal ulcer (bulb toward 2nd portion of duodenum) POD21 Exploratory Laparotomy, Omental patch closure of perforation, lateral internal duodenostomy, Pyloric Exclusion, Feeding jejunostomy POD13 Re-exploration Repair of site of duodenostomy - site of leak, retrograde gastrojejunostomy to duodenum (for drainage), washout of abdomen Attempt at replacing the retrograde gastrojejunostomy internal drain not successful, 20 F gastrostomy tube left in place. No further Vtach episodes Continue with antibiotics (I will give for total 10 days) I spoke to the patient at length about the implication of the unsuccessful procedure yesterday. Most duodenal leaks and fistula should close in due time but he needs to understand that this will most likely need several months to heal. 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 He needs to concentrate on strengthening himself. We will use the jejunal feeding tube for feeding past that area as we await the closure of the duodenal leak. If gastrostomy output is adequate, will d/c ngt today. will check nutrrition parameters qweekly. Plan / VTE VTE Prophylaxis Ordered?: Yes Plan / Urinary Catheter Urinary Catheter: D/C [place] Reason for insertion/continuin: Critical Pt monitoring ORA SIMPSON MD Sep 05, 2017 08:41
[2017-09-05] MEDS: ISOSORBIDE MON. (IMDUR) 30 MG XR TAB PO SCH (09:42)
[2017-09-05] MEDS: PANTOPRAZOLE 40MG INJ (PROTONIX) (C9113) IV SCH ×2 (09:43→21:33)
[2017-09-05] MEDS: SODIUM CHLORIDE 0.9% INJ 10 ML SYR IV PRN (09:49)
[2017-09-05] MEDS: FLUCONAZOLE 100 MG in APPROPRIATE DILUENT 1 EA IV SCH (17:35)
[2017-09-05] MEDS: ERTAPENEM SODIUM 1 GM in NS MINI-BAG PLUS 50 ML IV SCH (17:35)
[2017-09-05] MEDS: ATORVASTATIN 20 MG TAB PO SCH (21:32)
[2017-09-05] MEDS: ENOXAPARIN 40 MG/0.4 ML SYRINGE (J1650) SC SCH (21:33)
[2017-09-06] MEDS: NORCO, ANEXSIA 5/325MG TABLET (HYDROcodone/ACETAMINOPHEN) PO PRN ×3 (00:32→18:24)
[2017-09-06 04:00] VITALS: BP 117/72
[2017-09-06] MEDS: MORPHINE 2 MG/ML 1ML SYRINGE IV PRN (04:26)
[2017-09-06] MEDS: SODIUM CHLORIDE 0.9% INJ 10 ML SYR IV SCH ×2 (05:34→17:07)
[2017-09-06] MEDS: METOPROLOL TART 25 MG TABLET PO SCH ×3 (05:35→21:48)
[2017-09-06 05:55] LABS: MEAN CORPUSCULAR HEMOGLOBIN 31.7 pg (27.0-33.0); MEAN CORPUSCULAR VOLUME 93.3 fl (80.0-96.0); PLATELET COUNT, AUTOMATED 316 10^3/uL (150-450); RED CELL DISTRIBUTION WIDTH 14.5 % (11.5-14.5); WHITE BLOOD COUNT 9.4 10^3/uL (4.0-10.0)
[2017-09-06 06:23] LABS: ALBUMIN 2.5 GM/DL (3.2-5.2); ALBUMIN/GLOBULIN RATIO 0.45 (1.00-1.93); ALKALINE PHOSPHATASE 236 U/L (45-117); ALT/SGPT 142 U/L (12-78); ANION GAP 7 MEQ/L (8-16); AST/SGOT 60 U/L (15-37); BILIRUBIN,TOTAL 2.1 MG/DL (0.2-1.0); BLOOD UREA NITROGEN 36 MG/DL (7-18); CALCIUM LEVEL 8.5 MG/DL (8.8-10.2); CARBON DIOXIDE LEVEL 31 MEQ/L (21-32); CHLORIDE LEVEL 101 MEQ/L (98-107); CREATININE FOR GFR 1.12 MG/DL (0.70-1.30); GLOMERULAR FILTRATION RATE > 60.0 (>49); GLUCOSE, FASTING 149 MG/DL (80-110); MAGNESIUM LEVEL 2.6 MG/DL (1.8-2.4); POTASSIUM SERUM 3.8 MEQ/L (3.5-5.1); SODIUM LEVEL 139 MEQ/L (136-145)
[2017-09-06] MEDS: IPRATROPIUM 0.5MG/ALBUTEROL 2.5MG INH SOL UD 3ML (DUONEB)(J7620) NEB SCH ×4 (07:06→19:51)
[2017-09-06 08:00] VITALS: BP 121/71
--- NOTE | 2017-09-06 08:53 | IPNPDOC ---
Subjective General Date/Time Seen The patient was seen on 09/06/17 at 08:45. Subject Chief Complaint/History The patient is a 66-year-old male admitted with a reason for visit of Perforated Duodenal Ulcer. Patient continues to remain stable. There has been a trend on slight decrease in the right sided YORDY drain output with drainage more from the gastrostomy tube output under suction since removal of the retrograde gastrojejunostomy. We will continue to watch this. Patient has had bowel movements yesterday. A small part of the superior portion of the incision had some mild purulent drainage noted yesterday. He is tolerating jejunostomy feeding tube feeding. Current Medications Current Medications Current Medications Acetaminophen (Tylenol Tab) 650 mg Q4HP PRN PO MILD PAIN or TEMP > 101; Start 08/15/17 at 23:15; Stop 09/14/17 at 23:14 Acetaminophen/ Hydrocodone Bitart ([place]owin[place]el, Anexsia 5/325) 1 tab Q4HP PRN PO MILD /MODERATE PAIN (PS 1-7); Start 08/20/17 at 11:45; Stop 08/23/17 at 20:45; Status DC Acetaminophen/ Hydrocodone Bitart ([place]el, Anexsia 5/325) 2 tab Q4HP PRN PO SEVERE PAIN (PS 8-10) Last administered on 08/23/17 05:56; Start 08/20/17 at 11:45; Stop 08/23/17 at 20:45; Status DC Acetaminophen/ Hydrocodone Bitart ([place]in[place]el, Anexsia 5/325) 2 tab Q6HP PRN PO SEVERE PAIN (PS 8-10) Last administered on 09/06/17 00:32; Start 09/01/17 at 09:30; Stop 09/08/17 at 09:29 Albuterol Sulfate (Proventil Neb) 2.5 mg Q2HP PRN NEB SHORTNESS OF BREATH; Start 08/16/17 at 00:00; Stop 08/27/17 at 09:26; Status DC Albuterol/ Ipratropium (Duoneb (Ipr 0.5mg/Alb 2.5mg)) 3 ml RQ4H NEB Last administered on 08/16/17 09:25; Start 08/16/17 at 00:00; Stop 08/16/17 at 10:43 ; Status DC Albuterol/ Ipratropium (Duoneb (Ipr 0.5mg/Alb 2.5mg)) 3 ml RQID NEB Last administered on 09/06/17 07:06; Start 08/16/17 at 12:00; Stop 09/15/17 at 11: 59 Amino Ac/Electrol/ Dextrose/Calcium 2,000 ml @ 50 mls/hr ONCE@1800 IV Last administered on 08/28/17 18:06; Start 08/28/17 at 18:00; Stop 08/29/17 at 17 :59; Status DC Amino Ac/Electrol/ Dextrose/Calcium 2,000 ml @ 50 mls/hr ONCE@1800 IV Last administered on 08/30/17 18:35; Start 08/30/17 at 18:00; Stop 08/31/17 at 17 :59; Status DC Amino Ac/Electrol/ Dextrose/Calcium 2,000 ml @ 75 mls/hr ONCE@1800 IV Last administered on 08/25/17 17:15; Start 08/25/17 at 18:00; Stop 08/26/17 at 17 :59; Status DC Amino Ac/Electrol/ Dextrose/Calcium 2,000 ml @ 75 mls/hr ONCE@1800 IV Last administered on 08/26/17 17:38; Start 08/26/17 at 18:00; Stop 08/27/17 at 17 :59; Status DC Atorvastatin Calcium (Lipitor) 20 mg QHS PO Last administered on 09/05/17 21: 32; Start 09/01/17 at 21:00; Stop 10/01/17 at 20:59 Atorvastatin Calcium (Lipitor) 40 mg QHS PO Last administered on 08/24/17 21: 19; Start 08/19/17 at 21:00; Stop 08/25/17 at 07:59; Status DC Chlorhexidine Gluconate (Chlorhexidine Gluconate) SWAB/BRUSH ORAL CAVITY BID MT ; Start 08/16/17 at 09:00; Stop 08/16/17 at 10:41; Status DC Cyclobenzaprine HCl (Flexeril) 10 mg DAILY PRN PO MUSCLE SPASMS; Start at 09:30; Stop 08/27/17 at 09:26; Status DC Diphenhydramine HCl (Benadryl) 12.5 mg Q4HP PRN IV ITCHING; Start 08/23/17 at 18:00; Stop 09/01/17 at 09:20; Status DC Diphenhydramine HCl (Benadryl) 12.5 mg Q4HP PRN IV ITCHING; Start 08/17/17 at 08:00; Stop 08/20/17 at 11:37; Status DC Enoxaparin Sodium (Lovenox) 40 mg DAILY SC Last administered on 08/20/17 08:54 ; Start 08/16/17 at 09:00; Stop 08/21/17 at 19:37; Status DC Enoxaparin Sodium (Lovenox) 40 mg DAILY@2100 SC Last administered on 21:33; Start 08/21/17 at 21:00; Stop 09/08/17 at 20:59 Ertapenem 1 gm/ Sodium Chloride 50 ml @ 100 mls/hr Q24H IV Last administered on 09/05/17 17:35; Start 09/03/17 at 17:00; Stop 09/10/17 at 16:59 Ertapenem 1 gm/ Sodium Chloride 50 ml @ 100 mls/hr Q24H IV Last administered on 08/29/17 17:42; Start 08/16/17 at 17:00; Stop 08/30/17 at 14:33; Status DC Fat Emulsion Intravenous 500 ml @ 20 mls/hr ONCE@1800 IV Last administered on 08/24/17 17:49; Start 08/24/17 at 18:00; Stop 08/25/17 at 17:59; Status DC Fat Emulsion Intravenous 500 ml @ 20 mls/hr ONCE@1800 IV Last administered on 08/25/17 17:14; Start 08/25/17 at 18:00; Stop 08/26/17 at 17:59; Status DC Fat Emulsion Intravenous 500 ml @ 20 mls/hr ONCE@1800 IV Last administered on 08/26/17 17:37; Start 08/26/17 at 18:00; Stop 08/27/17 at 17:59; Status DC Fat Emulsion Intravenous 500 ml @ 20 mls/hr ONCE@1800 IV Last administered on 08/27/17 17:39; Start 08/27/17 at 18:00; Stop 08/28/17 at 17:59; Status DC Fat Emulsion Intravenous 500 ml @ 20 mls/hr ONCE@1800 IV Last administered on 08/28/17 18:05; Start 08/28/17 at 18:00; Stop 08/29/17 at 17:59; Status DC Fat Emulsion Intravenous 500 ml @ 20 mls/hr ONCE@1800 IV Last administered on 08/29/17 17:42; Start 08/29/17 at 18:00; Stop 08/30/17 at 17:59; Status DC Fat Emulsion Intravenous 500 ml @ 20 mls/hr ONCE@1800 IV Last administered on 08/30/17 18:35; Start 08/30/17 at 18:00; Stop 08/31/17 at 17:59; Status DC Fentanyl Citrate (Sublimaze) 25 mcg Q5MP PRN IV MODERATE PAIN (PS 4-7) Last administered on 08/23/17 18:46; Start 08/23/17 at 18:30; Stop 08/23/17 at 19 :30; Status DC Fentanyl Citrate (Sublimaze) 25 mcg Q5MP PRN IV MODERATE PAIN (PS 4-7); Start 08/16/17 at 00:00; Stop 08/16/17 at 01:15; Status DC Fluconazole 100 mg/IV Miscellaneous Supplies 50 ml @ 50 mls/hr Q24H IV Last administered on 09/05/17 17:35; Start 08/24/17 at 18:00; Stop 09/12/17 at 17: 59 Heparin Sodium (Heparin (Flush)) 200 units ASDIRECTED PRN IV SEE LABEL COMMENTS Last administered on 09/05/17 09:49; Start 08/24/17 at 12:15; Stop 09/23/17 at 12:14 Heparin Sodium (Heparin (Flush)) 200 units PICC IV Last administered on 05:34; Start 08/24/17 at 18:00; Stop 09/23/17 at 17:59 Heparin Sodium (Heparin Lock Flush 10units/ml) 10 units ASDIRECTED PRN IV SEE LABEL COMMENTS; Start 08/20/17 at 20:45; Stop 08/21/17 at 14:31; Status DC Heparin Sodium (Heparin Lock Flush 10units/ml) 10 units HLF IV Last administered on 08/21/17 05:13; Start 08/20/17 at 22:00; Stop 08/21/17 at 14: 31; Status DC Home Med (Med Rec Complete!) ASDIRECTED XX ; Start 08/15/17 at 16:15; Stop 08/15/17 at 16:15; Status DC Influenza Virus Vaccine (Fluzone High Dose) 0.5 ml ASDIRECTED IM Last administered on 08/19/17 10:15; Start 08/16/17 at 11:15; Stop 08/19/17 at 14:14 ; Status DC Insulin Human Lispro (HumaLOG INSULIN) See Protocol Table Q6H SC Last administered on 08/25/17 11:50; Start 08/24/17 at 18:00; Stop 08/25/17 at 12 :01; Status DC Insulin Human Lispro (HumaLOG INSULIN) See Protocol Table Q6H SC Last administered on 08/26/17 11:40; Start 08/25/17 at 18:00; Stop 08/26/17 at 12 :01; Status DC Insulin Human Lispro (HumaLOG INSULIN) See Protocol Table Q6H SC Last administered on 08/27/17 12:09; Start 08/26/17 at 18:00; Stop 08/27/17 at 12 :01; Status DC Insulin Human Lispro (HumaLOG INSULIN) See Protocol Table Q6H SC Last administered on 08/28/17 12:15; Start 08/27/17 at 18:00; Stop 08/28/17 at 12 :01; Status DC Insulin Human Lispro (HumaLOG INSULIN) See Protocol Table Q6H SC Last administered on 08/29/17 12:33; Start 08/28/17 at 18:00; Stop 08/29/17 at 15 :00; Status DC Insulin Human Lispro (HumaLOG INSULIN) See Protocol Table Q6H SC Last administered on 08/30/17 13:25; Start 08/29/17 at 18:00; Stop 08/30/17 at 12 :01; Status DC Insulin Human Lispro (HumaLOG INSULIN) See Protocol Table Q6H SC Last administered on 08/31/17 11:43; Start 08/30/17 at 18:00; Stop 08/31/17 at 15 :00; Status DC Isosorbide Mononitrate (Imdur) 30 mg DAILY PO Last administered on 09/05/17 09:42; Start 08/19/17 at 09:00; Stop 09/18/17 at 08:59 Lactated Ringer's 1,000 ml @ 100 mls/hr Q10H IV ; Start 08/23/17 at 18:30; Stop 08/23/17 at 19:30; Status DC Lactated Ringer's 1,000 ml @ 100 mls/hr Q10H IV Last administered on 08:54; Start 08/15/17 at 17:00; Stop 08/20/17 at 11:37; Status DC Lactated Ringer's 1,000 ml @ 100 mls/hr Q10H IV ; Start 08/16/17 at 00:00; Stop 08/16/17 at 01:15; Status DC Lactated Ringer's 1,000 ml @ 200 mls/hr Q5H IV Last administered on 04:00; Start 08/22/17 at 18:00; Stop 08/24/17 at 07:46; Status DC Magnesium Hydroxide (Milk Of Magnesia) 30 ml DAILYPRN PRN PO CONSTIPATION; Start 08/15/17 at 23:15; Stop 08/25/17 at 07:59; Status DC Metoprolol Tartrate (Lopressor) 25 mg BID PO Last administered on 09/03/17 21 :04; Start 08/15/17 at 21:00; Stop 09/04/17 at 07:48; Status DC Metoprolol Tartrate (Lopressor) 25 mg Q8H PO Last administered on 09/06/17 05 :35; Start 09/04/17 at 06:00; Stop 10/04/17 at 05:59 Midazolam HCl (Versed) 2 mg Q15MP PRN IV AGITATION Last administered on 05:04; Start 08/16/17 at 00:00; Stop 08/16/17 at 10:41; Status DC Miscellaneous (Unresolved Clarification Entry) SEE LABEL COMMENTS UNRESOLVED XX ; Start 08/21/17 at 00:01; Stop 08/21/17 at 19:37; Status DC Morphine Sulfate (Morphine Sulfate In 0.9%Nacl Iv Bag) Concentration 1 mg/ml ASDIRECTED PRN IV SEE LABEL COMMENTS Last administered on 08/31/17 10:45; Start 08/23/17 at 18:00; Stop 09/01/17 at 09:20; Status DC Morphine Sulfate (Morphine Sulfate In 0.9%Nacl Iv Bag) Concentration 1 mg/ml ASDIRECTED PRN IV SEE LABEL COMMENTS Last administered on 08/18/17 18:52; Start 08/17/17 at 08:00; Stop 08/20/17 at 11:37; Status DC Morphine Sulfate (Morphine Sulfate Inj) 2 mg Q2HP PRN IV BREAKTHROUGH PAIN Last administered on 09/06/17 04:26; Start 09/01/17 at 09:30; Stop 09/08/17 at 09:29 Morphine Sulfate (Morphine Sulfate Inj) 2 mg Q2HP PRN IV PAIN Last administered on 08/17/17 06:42; Start 08/16/17 at 00:00; Stop 08/17/17 at 07:53 ; Status DC Morphine Sulfate (Morphine Sulfate Inj) 4 mg Q1H PRN IV SEVERE PAIN (PS 8-10); Start 08/15/17 at 23:15; Stop 08/15/17 at 23:53; Status DC Morphine Sulfate (Morphine Sulfate Inj) 4 mg Q4HP PRN IV SEVERE PAIN (PS 8-10) Last administered on 08/23/17 09:18; Start 08/20/17 at 11:45; Stop 08/23/17 at 17:57; Status DC Multivitamins (Theragram-M) 1 tab DAILY PO Last administered on 08/24/17 08: 29; Start 08/19/17 at 09:00; Stop 08/25/17 at 07:59; Status DC Multivitamins 10 ml/Chromium/ Copper/Manganese/ Seleni/Zn 1 ml/ Amino Ac/ Electrol/ Dextrose/Calcium 2,011 ml @ 50 mls/hr ONCE@1800 IV Last administered on 08/27/17 17:39; Start 08/27/17 at 18:00; Stop 08/28/17 at 17 :59; Status DC Multivitamins 10 ml/Chromium/ Copper/Manganese/ Seleni/Zn 1 ml/ Amino Ac/ Electrol/ Dextrose/Calcium 2,011 ml @ 50 mls/hr ONCE@1800 IV Last administered on 08/29/17 17:42; Start 08/29/17 at 18:00; Stop 08/30/17 at 17 :59; Status DC Multivitamins 10 ml/Chromium/ Copper/Manganese/ Seleni/Zn 1 ml/ Amino Ac/ Electrol/ Dextrose/Calcium 2,011 ml @ 85 mls/hr ONCE@1800 IV Last administered on 08/24/17 17:49; Start 08/24/17 at 18:00; Stop 08/25/17 at 17 :59; Status DC Nalbuphine HCl (Nubain) 2.5 mg Q6HP PRN IV PRURITIS; Start 08/23/17 at 18:00; Stop 09/01/17 at 09:20; Status DC Nalbuphine HCl (Nubain) 2.5 mg Q6HP PRN IV PRURITIS; Start 08/17/17 at 08:00; Stop 08/20/17 at 11:37; Status DC Naloxone HCl (Narcan) 0.1 mg Q5MP PRN IV SEE LABEL COMMENTS; Start 08/23/17 at 18:00; Stop 09/01/17 at 09:20; Status DC Naloxone HCl (Narcan) 0.1 mg Q5MP PRN IV SEE LABEL COMMENTS; Start 08/17/17 at 08:00; Stop 08/20/17 at 11:37; Status DC Nitroglycerin (Nitrostat (1/ 150)) 0.4 mg Q5MP PRN SL CHEST PAIN; Start at 09:30; Stop 09/18/17 at 09:29 Non-Formulary Medication (Epidural/BATTERY TESTER [place]) USE THIS ENTRY TO VEND ... Q1M PRN XX SEE LABEL COMMENTS; Start 08/23/17 at 18:00; Stop 09/01/17 at 09:20; Status DC Non-Formulary Medication (Epidural/BATTERY TESTER [place]) USE THIS ENTRY TO VEND ... Q1M PRN XX SEE LABEL COMMENTS; Start 08/17/17 at 08:00; Stop 08/20/17 at 11:37; Status DC Octreotide Acetate (SandoSTATIN) 100 mcg Q8H SC Last administered on 05:03; Start 08/20/17 at 14:00; Stop 08/24/17 at 07:37; Status DC Octreotide Acetate (SandoSTATIN) 200 mcg Q8H SC Last administered on 05:23; Start 08/24/17 at 14:00; Stop 08/29/17 at 09:05; Status DC Ondansetron HCl (ZOFRAN INJection) 4 mg Q4HP PRN IV NAUSEA OR VOMITING; Start 08/23/17 at 18:30; Stop 08/23/17 at 19:30; Status DC Ondansetron HCl (ZOFRAN INJection) 4 mg Q4HP PRN IV NAUSEA OR VOMITING; Start 08/16/17 at 00:00; Stop 08/16/17 at 01:15; Status DC Ondansetron HCl (ZOFRAN INJection) 4 mg Q6HP PRN IV NAUSEA; Start 08/23/17 at 18:00; Stop 09/01/17 at 09:20; Status DC Ondansetron HCl (ZOFRAN INJection) 4 mg Q6HP PRN IV NAUSEA OR VOMITING; Start 08/15/17 at 23:15; Stop 08/27/17 at 09:26; Status DC Ondansetron HCl (ZOFRAN INJection) 4 mg Q6HP PRN IV NAUSEA; Start 08/17/17 at 08:00; Stop 08/20/17 at 11:37; Status DC Pantoprazole Sodium (Protonix) 40 mg BID IV Last administered on 09/05/17 21: 33; Start 08/23/17 at 21:00; Stop 09/22/17 at 20:59 Pantoprazole Sodium (Protonix) 40 mg BID IV Last administered on 08/23/17 09: 34; Start 08/16/17 at 09:00; Stop 08/23/17 at 17:56; Status DC Phenol (Chloraseptic (Cepacol)) 1 spray Q2HP PRN MT SORE THROAT; Start at 15:45; Stop 09/30/17 at 15:44 Pneumococcal Polyvalent Vaccine (Prevnar 13) 0.5 ml ASDIRECTED IM Last administered on 08/19/17 10:16; Start 08/16/17 at 11:15; Stop 08/19/17 at 14:14 ; Status DC Propofol 1000 mg/ IV Miscellaneous Supplies 100 ml @ 6.68 mls/hr [id number] IV Last administered on 08/16/17 05:22; Start 08/15/17 at 23:47; Stop 08/16/17 at 10:41; Status DC Sodium Chloride 1,000 ml @ 15 mls/hr Q24H IV ; Start 08/23/17 at 17:53; Stop 08/24/17 at 07:51; Status DC Sodium Chloride 1,000 ml @ 15 mls/hr Q24H IV ; Start 08/17/17 at 07:49; Stop 08/17/17 at 07:55; Status DC Sodium Chloride 1,000 ml @ 30 mls/hr Q24H IV Last administered on 08/31/17 17:17; Start 08/24/17 at 18:00; Stop 09/03/17 at 01:57; Status DC Sodium Chloride 1,000 ml @ 200 mls/hr Q5H IV Last administered on 08/24/17 14:00; Start 08/24/17 at 07:45; Stop 08/24/17 at 17:21; Status DC Sodium Chloride (Saline Lock Flush) 10 ml ASDIRECTED PRN IV SEE LABEL COMMENTS Last administered on 09/05/17 09:49; Start 08/24/17 at 12:15; Stop 09/23/17 at 12:14 Sodium Chloride (Saline Lock Flush) 10 ml ASDIRECTED PRN IV SEE LABEL COMMENTS ; Start 08/20/17 at 20:45; Stop 08/21/17 at 14:31; Status DC Sodium Chloride (Saline Lock Flush) 10 ml PICC IV Last administered on 05:34; Start 08/24/17 at 18:00; Stop 09/23/17 at 17:59 Sodium Chloride (Saline Lock Flush) 10 ml SLF IV Last administered on 05:13; Start 08/20/17 at 22:00; Stop 08/21/17 at 14:31; Status DC Vitamin D (Vitamin D) 1,000 units DAILY PO Last administered on 08/23/17 09: 36; Start 08/19/17 at 09:00; Stop 08/23/17 at 20:45; Status DC Zolpidem Tartrate (Ambien) 2.5 mg QHS PRN PO INSOMNIA Last administered on 01:20; Start 09/01/17 at 18:15; Stop 09/08/17 at 18:14 Allergies Coded Allergies: Penicillins (Verified Adverse Reaction, Intermediate, STOMACH ULCERS MANY YEARS AGO, 09/03/17) Objective Physical Examination Examination GENERAL APPEARANCE:Patient seen, laying in bed, awake, alert, and oriented. Comfortable, in no acute distress. SKIN: Warm and dry. HEENT: Normocephalic, atraumatic. [place] palpebral conjunctiva, anicteric sclerae. Lips and mucosa appear moist. NECK: Supple, no thyromegaly. No obvious jugular venous distention. LUNGS: Clear to auscultation bilaterally. No wheezing appreciated. HEART: No chest wall abnormalities. Regular rate and rhythm with no murmurs appreciated. ABDOMEN: Abdomen is round, soft, nondistended. Right sided YORDY drain. Brownish/ bilious output, small amount of staining from the dressing around the drain site. No erythema. Midline incision is clean dry and intact except for a 1 cm portion of the incision. Small amount of purulent drain. No surrounding skin erythema. Left jejunostomy tube working. Left gastrostomy tube working. Both skin sites are without any erythema. Minimally tender on palpation only on the right lower quadrant. EXTREMITIES: Extremities have no deformities. No edema identified. Vital Signs Vital Signs Date Time Temp Pulse Resp B/P (MAP) Pulse Ox O2 Delivery O2 Flow Rate FiO2 09/06/17 05:35 85 117/72 09/06/17 04:36 16 09/06/17 04:00 97.6 95 Room Air Laboratory Data Labs 24H Laboratory Tests 2 09/06/17 05:32: Nucleated Red Blood Cells % (auto) 0.0, Anion Gap 7L, Glomerular Filtration Rate > 60.0, Blood Urea Nitrogen 36H, Creatinine 1.12, Sodium Level 139, Potassium Level 3.8, Chloride Level 101, Carbon Dioxide Level 31, Calcium Level 8.5L, Aspartate Amino Transf (AST/SGOT) 60H, Alanine Aminotransferase (ALT/SGPT ) 142H, Alkaline Phosphatase 236H, Total Bilirubin 2.1H, Total Protein 8.0, Albumin 2.5L, Magnesium Level 2.6H, Albumin/Globulin Ratio 0.45L, Prealbumin 18.9L CBC/BMP Laboratory Tests 09/06/17 05:32 Red Blood Count 3.88 L, Mean Corpuscular Volume 93.3, Mean Corpuscular Hemoglobin 31.7, Mean Corpuscular Hemoglobin Concent 34.0, Red Cell Distribution Width 14.5, Calcium Level 8.5 L, Aspartate Amino Transf (AST/SGOT) 60 H, Alanine Aminotransferase (ALT/SGPT) 142 H, Alkaline Phosphatase 236 H, Total Bilirubin 2.1 H, Total Protein 8.0, Albumin 2.5 L Impression Perforated scarred duodenal ulcer (bulb toward 2nd portion of duodenum) POD22 Exploratory Laparotomy, Omental patch closure of perforation, lateral internal duodenostomy, Pyloric Exclusion, Feeding jejunostomy POD14 Re-exploration Repair of site of duodenostomy - site of leak, retrograde gastrojejunostomy to duodenum (for drainage), washout of abdomen Attempt at replacing the retrograde gastrojejunostomy internal drain not successful, 20 F gastrostomy tube left in place. No further Vtach episodes x 3 days New small amount of purulent drainage on the top portion of the incision but no accompanying cellulitis Malnutrition malnutrition Continue with antibiotics (I will give for total 10 days) I spoke to the patient at length about the implication of the unsuccessful procedure yesterday. Most duodenal leaks and fistula should close in due time but he needs to understand that this will most likely need several months to heal. 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 He needs to concentrate on strengthening himself. We will use the jejunal feeding tube for feeding past that area as we await the closure of the duodenal leak. His prealbumin is 18 and remains low. We will increase the feeding to 75 MLS in our from the jejunostomy tube and we do not have any plans on any further intervention so we should not have any positive and the feeding in the near term. I will continue to monitor nutrition parameters weekly. Small amount of purulent drainage on the top portion of the incision without any erythema. Wet-to-dry gauze dressing to the area. We will transfer the patient to regular floors Plan / VTE VTE Prophylaxis Ordered?: Yes Plan / Urinary Catheter Urinary Catheter: D/C [place] Reason for insertion/continuin: Critical Pt monitoring ORA SIMPSON MD Sep 06, 2017 08:53
[2017-09-06] MEDS: PANTOPRAZOLE 40MG INJ (PROTONIX) (C9113) IV SCH ×2 (09:07→21:47)
[2017-09-06] MEDS: ISOSORBIDE MON. (IMDUR) 30 MG XR TAB PO SCH (09:07)
[2017-09-06] MEDS: ASPIRIN 81 MG ENTERIC TAB PO SCH (09:07)
[2017-09-06 12:18] VITALS: BP 116/73
[2017-09-06] MEDS: ERTAPENEM SODIUM 1 GM in NS MINI-BAG PLUS 50 ML IV SCH (17:07)
[2017-09-06] MEDS: FLUCONAZOLE 100 MG in APPROPRIATE DILUENT 1 EA IV SCH (18:00)
[2017-09-06] MEDS: ATORVASTATIN 20 MG TAB PO SCH (21:47)
[2017-09-06] MEDS: ENOXAPARIN 40 MG/0.4 ML SYRINGE (J1650) SC SCH (21:48)
[2017-09-06 22:00] VITALS: BP 126/74
[2017-09-07] MEDS: METOPROLOL TART 25 MG TABLET PO SCH ×3 (05:23→21:35)
[2017-09-07] MEDS: SODIUM CHLORIDE 0.9% INJ 10 ML SYR IV SCH ×2 (05:23→18:13)
[2017-09-07 06:00] VITALS: BP 114/75
[2017-09-07 06:27] LABS: MEAN CORPUSCULAR HEMOGLOBIN 31.2 pg (27.0-33.0); MEAN CORPUSCULAR HGB CONC 33.1 g/dl (32.0-36.5); MEAN CORPUSCULAR VOLUME 94.4 fl (80.0-96.0); PLATELET COUNT, AUTOMATED 324 10^3/uL (150-450); RED CELL DISTRIBUTION WIDTH 14.4 % (11.5-14.5); WHITE BLOOD COUNT 10.5 10^3/uL (4.0-10.0)
[2017-09-07 06:44] LABS: ALBUMIN 2.6 GM/DL (3.2-5.2); ALBUMIN/GLOBULIN RATIO 0.49 (1.00-1.93); ALKALINE PHOSPHATASE 250 U/L (45-117); ALT/SGPT 141 U/L (12-78); ANION GAP 8 MEQ/L (8-16); AST/SGOT 74 U/L (15-37); BILIRUBIN,TOTAL 2.1 MG/DL (0.2-1.0); BLOOD UREA NITROGEN 37 MG/DL (7-18); CALCIUM LEVEL 8.3 MG/DL (8.8-10.2); CARBON DIOXIDE LEVEL 31 MEQ/L (21-32); CHLORIDE LEVEL 99 MEQ/L (98-107); CREATININE FOR GFR 1.02 MG/DL (0.70-1.30); GLOMERULAR FILTRATION RATE > 60.0 (>49); GLUCOSE, FASTING 96 MG/DL (80-110); MAGNESIUM LEVEL 2.8 MG/DL (1.8-2.4); POTASSIUM SERUM 4.3 MEQ/L (3.5-5.1); SODIUM LEVEL 138 MEQ/L (136-145); TOTAL PROTEIN 7.9 GM/DL (6.4-8.2)
[2017-09-07] MEDS: IPRATROPIUM 0.5MG/ALBUTEROL 2.5MG INH SOL UD 3ML (DUONEB)(J7620) NEB SCH ×4 (08:02→19:50)
[2017-09-07] MEDS: PANTOPRAZOLE 40MG INJ (PROTONIX) (C9113) IV SCH ×2 (08:54→21:33)
[2017-09-07] MEDS: ASPIRIN 81 MG ENTERIC TAB PO SCH (08:55)
[2017-09-07] MEDS: NORCO, ANEXSIA 5/325MG TABLET (HYDROcodone/ACETAMINOPHEN) PO PRN (08:55)
[2017-09-07] MEDS: ISOSORBIDE MON. (IMDUR) 30 MG XR TAB PO SCH (08:55)
[2017-09-07 14:00] VITALS: BP_SYST 112; BP_SYST 93; BP_DIAS 54; BP_DIAS 55
[2017-09-07] MEDS: ERTAPENEM SODIUM 1 GM in NS MINI-BAG PLUS 50 ML IV SCH (16:08)
[2017-09-07] MEDS: FLUCONAZOLE 100 MG in APPROPRIATE DILUENT 1 EA IV SCH (18:13)
[2017-09-07] MEDS: OCTREOTIDE ACETATE 100 MCG/ML VIAL (J2354) SC SCH ×2 (18:13→21:33)
[2017-09-07] MEDS: ENOXAPARIN 40 MG/0.4 ML SYRINGE (J1650) SC SCH (21:00)
[2017-09-07] MEDS: SODIUM CHLORIDE 0.9% INJ 10 ML SYR IV PRN (21:35)
[2017-09-07] MEDS: ATORVASTATIN 20 MG TAB PO SCH (21:35)
[2017-09-07 22:00] VITALS: BP 116/56
[2017-09-08] MEDS: OCTREOTIDE ACETATE 100 MCG/ML VIAL (J2354) SC SCH ×3 (05:27→21:59)
[2017-09-08] MEDS: METOPROLOL TART 25 MG TABLET PO SCH ×3 (05:29→21:58)
[2017-09-08] MEDS: SODIUM CHLORIDE 0.9% INJ 10 ML SYR IV SCH ×2 (05:29→17:35)
[2017-09-08 05:52] LABS: MEAN CORPUSCULAR HEMOGLOBIN 31.3 pg (27.0-33.0); MEAN CORPUSCULAR HGB CONC 32.7 g/dl (32.0-36.5); MEAN CORPUSCULAR VOLUME 95.5 fl (80.0-96.0); PLATELET COUNT, AUTOMATED 323 10^3/uL (150-450); RED CELL DISTRIBUTION WIDTH 14.3 % (11.5-14.5); WHITE BLOOD COUNT 10.7 10^3/uL (4.0-10.0)
[2017-09-08 06:00] VITALS: BP 120/60
[2017-09-08 06:14] LABS: ALBUMIN 2.6 GM/DL (3.2-5.2); ALBUMIN/GLOBULIN RATIO 0.49 (1.00-1.93); ALKALINE PHOSPHATASE 246 U/L (45-117); ALT/SGPT 140 U/L (12-78); ANION GAP 8 MEQ/L (8-16); AST/SGOT 74 U/L (7-37); BILIRUBIN,TOTAL 1.9 MG/DL (0.2-1.0); BLOOD UREA NITROGEN 37 MG/DL (7-18); CALCIUM LEVEL 8.7 MG/DL (8.8-10.2); CARBON DIOXIDE LEVEL 29 MEQ/L (21-32); CHLORIDE LEVEL 100 MEQ/L (98-107); CREATININE FOR GFR 1.12 MG/DL (0.70-1.30); GLOMERULAR FILTRATION RATE > 60.0 (>49); GLUCOSE, FASTING 128 MG/DL (80-110); MAGNESIUM LEVEL 2.6 MG/DL (1.8-2.4); POTASSIUM SERUM 4.2 MEQ/L (3.5-5.1); SODIUM LEVEL 137 MEQ/L (136-145); TOTAL PROTEIN 7.9 GM/DL (6.4-8.2)
[2017-09-08] MEDS: IPRATROPIUM 0.5MG/ALBUTEROL 2.5MG INH SOL UD 3ML (DUONEB)(J7620) NEB SCH ×4 (08:19→20:02)
[2017-09-08] MEDS: ASPIRIN 81 MG ENTERIC TAB PO SCH (08:42)
[2017-09-08] MEDS: ISOSORBIDE MON. (IMDUR) 30 MG XR TAB PO SCH (08:42)
[2017-09-08] MEDS: PANTOPRAZOLE 40MG INJ (PROTONIX) (C9113) IV SCH ×2 (08:42→21:57)
[2017-09-08] MEDS: DIAPER RELIEF PASTE (DESITIN) 60GM TOP SCH ×2 (09:00→21:00)
[2017-09-08] MEDS: NORCO, ANEXSIA 5/325MG TABLET (HYDROcodone/ACETAMINOPHEN) PO PRN (10:32)
[2017-09-08 14:00] VITALS: BP 102/57
[2017-09-08] MEDS: ERTAPENEM SODIUM 1 GM in NS MINI-BAG PLUS 50 ML IV SCH (16:52)
[2017-09-08] MEDS: FLUCONAZOLE 100 MG in APPROPRIATE DILUENT 1 EA IV SCH (17:35)
[2017-09-08] MEDS: ATORVASTATIN 20 MG TAB PO SCH (21:57)
[2017-09-08] MEDS: ENOXAPARIN 40 MG/0.4 ML SYRINGE (J1650) SC SCH (21:58)
[2017-09-08] MEDS: SODIUM CHLORIDE 0.9% INJ 10 ML SYR IV PRN (21:58)
[2017-09-08 22:00] VITALS: BP 128/71
[2017-09-09 06:00] VITALS: BP 109/56
[2017-09-09] MEDS: METOPROLOL TART 25 MG TABLET PO SCH ×3 (06:12→21:44)
[2017-09-09] MEDS: OCTREOTIDE ACETATE 100 MCG/ML VIAL (J2354) SC SCH ×3 (06:12→21:43)
[2017-09-09] MEDS: SODIUM CHLORIDE 0.9% INJ 10 ML SYR IV SCH ×2 (06:12→17:15)
[2017-09-09] MEDS: IPRATROPIUM 0.5MG/ALBUTEROL 2.5MG INH SOL UD 3ML (DUONEB)(J7620) NEB SCH ×4 (07:56→20:00)
[2017-09-09] MEDS: ASPIRIN 81 MG ENTERIC TAB PO SCH (09:28)
[2017-09-09] MEDS: ISOSORBIDE MON. (IMDUR) 30 MG XR TAB PO SCH (09:28)
[2017-09-09] MEDS: PANTOPRAZOLE 40MG INJ (PROTONIX) (C9113) IV SCH ×2 (09:28→21:43)
[2017-09-09] MEDS: DIAPER RELIEF PASTE (DESITIN) 60GM TOP SCH ×2 (09:29→21:43)
[2017-09-09] MEDS: SUCRALFATE SUSP 1GM/10ML UD GT SCH ×2 (12:01→17:15)
[2017-09-09 14:00] VITALS: BP 113/67
[2017-09-09] MEDS: ERTAPENEM SODIUM 1 GM in NS MINI-BAG PLUS 50 ML IV SCH (16:29)
[2017-09-09] MEDS: FLUCONAZOLE 100 MG in APPROPRIATE DILUENT 1 EA IV SCH (17:15)
[2017-09-09] MEDS: ENOXAPARIN 40 MG/0.4 ML SYRINGE (J1650) SC SCH (21:42)
[2017-09-09] MEDS: ATORVASTATIN 20 MG TAB PO SCH (21:43)
[2017-09-09] MEDS: SODIUM CHLORIDE 0.9% INJ 10 ML SYR IV PRN (21:43)
[2017-09-09 22:00] VITALS: BP 120/57
[2017-09-10] MEDS: SUCRALFATE SUSP 1GM/10ML UD GT SCH ×4 (00:04→17:21)
[2017-09-10] MEDS: OCTREOTIDE ACETATE 100 MCG/ML VIAL (J2354) SC SCH ×3 (05:46→21:12)
[2017-09-10] MEDS: SODIUM CHLORIDE 0.9% INJ 10 ML SYR IV SCH ×2 (05:46→18:41)
[2017-09-10] MEDS: METOPROLOL TART 25 MG TABLET PO SCH ×3 (05:47→21:13)
[2017-09-10 06:00] VITALS: BP 114/62
[2017-09-10 06:43] LABS: MEAN CORPUSCULAR HEMOGLOBIN 31.5 pg (27.0-33.0); MEAN CORPUSCULAR HGB CONC 33.2 g/dl (32.0-36.5); MEAN CORPUSCULAR VOLUME 94.8 fl (80.0-96.0); PLATELET COUNT, AUTOMATED 239 10^3/uL (150-450); RED CELL DISTRIBUTION WIDTH 14.2 % (11.5-14.5); WHITE BLOOD COUNT 9.1 10^3/uL (4.0-10.0)
[2017-09-10 07:02] LABS: ANION GAP 6 MEQ/L (8-16); BLOOD UREA NITROGEN 24 MG/DL (7-18); CALCIUM LEVEL 8.2 MG/DL (8.8-10.2); CARBON DIOXIDE LEVEL 31 MEQ/L (21-32); CHLORIDE LEVEL 98 MEQ/L (98-107); GLOMERULAR FILTRATION RATE > 60.0 (>49); GLUCOSE, FASTING 136 MG/DL (80-110); POTASSIUM SERUM 3.6 MEQ/L (3.5-5.1); SODIUM LEVEL 135 MEQ/L (136-145)
[2017-09-10] MEDS: IPRATROPIUM 0.5MG/ALBUTEROL 2.5MG INH SOL UD 3ML (DUONEB)(J7620) NEB SCH ×4 (07:08→19:56)
[2017-09-10] MEDS: NORCO, ANEXSIA 5/325MG TABLET (HYDROcodone/ACETAMINOPHEN) PO PRN ×2 (08:28→21:11)
[2017-09-10 09:07] VITALS: BP 120/78
--- NOTE | 2017-09-10 09:22 | IPNPDOC ---
Subjective General Date/Time Seen The patient was seen on 09/10/17 at 09:21. Subject Chief Complaint/History The patient is a 66-year-old male admitted with a reason for visit of Perforated Duodenal Ulcer. Patient reports feeling tired this morning, not able to sleep well last night. No significant events over the weekend. He continues to have output from the Oziel-Gilbert drain though this seems to be less (less than 400 ML's in 24 hours ) over the weekend. No fevers reported. I started him on clears prior to the weekend and this has not seemed to affect the amount of output. He still maintained on jejunostomy tube feedings. He is having bowel movements. Nurse reports some slight blood-tinged output from the gastrostomy. Current Medications Current Medications Current Medications Acetaminophen (Tylenol Tab) 650 mg Q4HP PRN PO MILD PAIN or TEMP > 101; Start 08/15/17 at 23:15; Stop 09/14/17 at 23:14 Acetaminophen/ Hydrocodone Bitart ([place], Anexsia 5/325) 1 tab Q4HP PRN PO MILD /MODERATE PAIN (PS 1-7); Start 08/20/17 at 11:45; Stop 08/23/17 at 20:45; Status DC Acetaminophen/ Hydrocodone Bitart ([place], Anexsia 5/325) 2 tab Q4HP PRN PO SEVERE PAIN (PS 8-10) Last administered on 08/23/17 05:56; Start 08/20/17 at 11:45; Stop 08/23/17 at 20:45; Status DC Acetaminophen/ Hydrocodone Bitart ([place], Anexsia 5/325) 2 tab Q6HP PRN PO SEVERE PAIN (PS 8-10) Last administered on 09/10/17 08:28; Start 09/01/17 at 09:30; Stop 09/14/17 at 09:29 Albuterol Sulfate (Proventil Neb) 2.5 mg Q2HP PRN NEB SHORTNESS OF BREATH; Start 08/16/17 at 00:00; Stop 08/27/17 at 09:26; Status DC Albuterol/ Ipratropium (Duoneb (Ipr 0.5mg/Alb 2.5mg)) 3 ml RQ4H NEB Last administered on 08/16/17 09:25; Start 08/16/17 at 00:00; Stop 08/16/17 at 10:43 ; Status DC Albuterol/ Ipratropium (Duoneb (Ipr 0.5mg/Alb 2.5mg)) 3 ml RQID NEB Last administered on 09/10/17 07:08; Start 08/16/17 at 12:00; Stop 09/15/17 at 11: 59 Amino Ac/Electrol/ Dextrose/Calcium 2,000 ml @ 50 mls/hr ONCE@1800 IV Last administered on 08/28/17 18:06; Start 08/28/17 at 18:00; Stop 08/29/17 at 17 :59; Status DC Amino Ac/Electrol/ Dextrose/Calcium 2,000 ml @ 50 mls/hr ONCE@1800 IV Last administered on 08/30/17 18:35; Start 08/30/17 at 18:00; Stop 08/31/17 at 17 :59; Status DC Amino Ac/Electrol/ Dextrose/Calcium 2,000 ml @ 75 mls/hr ONCE@1800 IV Last administered on 08/25/17 17:15; Start 08/25/17 at 18:00; Stop 08/26/17 at 17 :59; Status DC Amino Ac/Electrol/ Dextrose/Calcium 2,000 ml @ 75 mls/hr ONCE@1800 IV Last administered on 08/26/17 17:38; Start 08/26/17 at 18:00; Stop 08/27/17 at 17 :59; Status DC Aspirin (Ecotrin) 81 mg DAILY PO Last administered on 09/09/17 09:28; Start 09/06/17 at 09:00; Stop 10/06/17 at 08:59 Atorvastatin Calcium (Lipitor) 20 mg QHS PO Last administered on 09/09/17 21: 43; Start 09/01/17 at 21:00; Stop 10/01/17 at 20:59 Atorvastatin Calcium (Lipitor) 40 mg QHS PO Last administered on 08/24/17 21: 19; Start 08/19/17 at 21:00; Stop 08/25/17 at 07:59; Status DC Chlorhexidine Gluconate (Chlorhexidine Gluconate) SWAB/BRUSH ORAL CAVITY BID MT ; Start 08/16/17 at 09:00; Stop 08/16/17 at 10:41; Status DC Cod Liver Oil/ Zinc Oxide (Desitin) APPLY TO right side abd wall BID TOP Last administered on 09/09/17 21:43; Start 09/08/17 at 09:00; Stop 10/08/17 at 08 :59 Cyclobenzaprine HCl (Flexeril) 10 mg DAILY PRN PO MUSCLE SPASMS; Start at 09:30; Stop 08/27/17 at 09:26; Status DC Diphenhydramine HCl (Benadryl) 12.5 mg Q4HP PRN IV ITCHING; Start 08/23/17 at 18:00; Stop 09/01/17 at 09:20; Status DC Diphenhydramine HCl (Benadryl) 12.5 mg Q4HP PRN IV ITCHING; Start 08/17/17 at 08:00; Stop 08/20/17 at 11:37; Status DC Enoxaparin Sodium (Lovenox) 40 mg DAILY SC Last administered on 08/20/17 08:54 ; Start 08/16/17 at 09:00; Stop 08/21/17 at 19:37; Status DC Enoxaparin Sodium (Lovenox) 40 mg DAILY@2100 SC Last administered on 21:42; Start 08/21/17 at 21:00; Stop 09/12/17 at 20:59 Ertapenem 1 gm/ Sodium Chloride 50 ml @ 100 mls/hr Q24H IV Last administered on 09/09/17 16:29; Start 09/03/17 at 17:00; Stop 09/10/17 at 16:59 Ertapenem 1 gm/ Sodium Chloride 50 ml @ 100 mls/hr Q24H IV Last administered on 08/29/17 17:42; Start 08/16/17 at 17:00; Stop 08/30/17 at 14:33; Status DC Fat Emulsion Intravenous 500 ml @ 20 mls/hr ONCE@1800 IV Last administered on 08/24/17 17:49; Start 08/24/17 at 18:00; Stop 08/25/17 at 17:59; Status DC Fat Emulsion Intravenous 500 ml @ 20 mls/hr ONCE@1800 IV Last administered on 08/25/17 17:14; Start 08/25/17 at 18:00; Stop 08/26/17 at 17:59; Status DC Fat Emulsion Intravenous 500 ml @ 20 mls/hr ONCE@1800 IV Last administered on 08/26/17 17:37; Start 08/26/17 at 18:00; Stop 08/27/17 at 17:59; Status DC Fat Emulsion Intravenous 500 ml @ 20 mls/hr ONCE@1800 IV Last administered on 08/27/17 17:39; Start 08/27/17 at 18:00; Stop 08/28/17 at 17:59; Status DC Fat Emulsion Intravenous 500 ml @ 20 mls/hr ONCE@1800 IV Last administered on 08/28/17 18:05; Start 08/28/17 at 18:00; Stop 08/29/17 at 17:59; Status DC Fat Emulsion Intravenous 500 ml @ 20 mls/hr ONCE@1800 IV Last administered on 08/29/17 17:42; Start 08/29/17 at 18:00; Stop 08/30/17 at 17:59; Status DC Fat Emulsion Intravenous 500 ml @ 20 mls/hr ONCE@1800 IV Last administered on 08/30/17 18:35; Start 08/30/17 at 18:00; Stop 08/31/17 at 17:59; Status DC Fentanyl Citrate (Sublimaze) 25 mcg Q5MP PRN IV MODERATE PAIN (PS 4-7) Last administered on 08/23/17 18:46; Start 08/23/17 at 18:30; Stop 08/23/17 at 19 :30; Status DC Fentanyl Citrate (Sublimaze) 25 mcg Q5MP PRN IV MODERATE PAIN (PS 4-7); Start 08/16/17 at 00:00; Stop 08/16/17 at 01:15; Status DC Fluconazole 100 mg/IV Miscellaneous Supplies 50 ml @ 50 mls/hr Q24H IV Last administered on 09/09/17 17:15; Start 08/24/17 at 18:00; Stop 09/12/17 at 17: 59 Heparin Sodium (Heparin (Flush)) 200 units ASDIRECTED PRN IV SEE LABEL COMMENTS Last administered on 09/09/17 21:43; Start 08/24/17 at 12:15; Stop 09/23/17 at 12:14 Heparin Sodium (Heparin (Flush)) 200 units PICC IV Last administered on 05:45; Start 08/24/17 at 18:00; Stop 09/23/17 at 17:59 Heparin Sodium (Heparin Lock Flush 10units/ml) 10 units ASDIRECTED PRN IV SEE LABEL COMMENTS; Start 08/20/17 at 20:45; Stop 08/21/17 at 14:31; Status DC Heparin Sodium (Heparin Lock Flush 10units/ml) 10 units HLF IV Last administered on 08/21/17 05:13; Start 08/20/17 at 22:00; Stop 08/21/17 at 14: 31; Status DC Home Med (Med Rec Complete!) ASDIRECTED XX ; Start 08/15/17 at 16:15; Stop 08/15/17 at 16:15; Status DC Influenza Virus Vaccine (Fluzone High Dose) 0.5 ml ASDIRECTED IM Last administered on 08/19/17 10:15; Start 08/16/17 at 11:15; Stop 08/19/17 at 14:14 ; Status DC Insulin Human Lispro (HumaLOG INSULIN) See Protocol Table Q6H SC Last administered on 08/25/17 11:50; Start 08/24/17 at 18:00; Stop 08/25/17 at 12 :01; Status DC Insulin Human Lispro (HumaLOG INSULIN) See Protocol Table Q6H SC Last administered on 08/26/17 11:40; Start 08/25/17 at 18:00; Stop 08/26/17 at 12 :01; Status DC Insulin Human Lispro (HumaLOG INSULIN) See Protocol Table Q6H SC Last administered on 08/27/17 12:09; Start 08/26/17 at 18:00; Stop 08/27/17 at 12 :01; Status DC Insulin Human Lispro (HumaLOG INSULIN) See Protocol Table Q6H SC Last administered on 08/28/17 12:15; Start 08/27/17 at 18:00; Stop 08/28/17 at 12 :01; Status DC Insulin Human Lispro (HumaLOG INSULIN) See Protocol Table Q6H SC Last administered on 08/29/17 12:33; Start 08/28/17 at 18:00; Stop 08/29/17 at 15 :00; Status DC Insulin Human Lispro (HumaLOG INSULIN) See Protocol Table Q6H SC Last administered on 08/30/17 13:25; Start 08/29/17 at 18:00; Stop 08/30/17 at 12 :01; Status DC Insulin Human Lispro (HumaLOG INSULIN) See Protocol Table Q6H SC Last administered on 08/31/17 11:43; Start 08/30/17 at 18:00; Stop 08/31/17 at 15 :00; Status DC Isosorbide Mononitrate (Imdur) 30 mg DAILY PO Last administered on 09/09/17 09:28; Start 08/19/17 at 09:00; Stop 09/18/17 at 08:59 Lactated Ringer's 1,000 ml @ 100 mls/hr Q10H IV ; Start 08/23/17 at 18:30; Stop 08/23/17 at 19:30; Status DC Lactated Ringer's 1,000 ml @ 100 mls/hr Q10H IV Last administered on 08:54; Start 08/15/17 at 17:00; Stop 08/20/17 at 11:37; Status DC Lactated Ringer's 1,000 ml @ 100 mls/hr Q10H IV ; Start 08/16/17 at 00:00; Stop 08/16/17 at 01:15; Status DC Lactated Ringer's 1,000 ml @ 200 mls/hr Q5H IV Last administered on 04:00; Start 08/22/17 at 18:00; Stop 08/24/17 at 07:46; Status DC Magnesium Hydroxide (Milk Of Magnesia) 30 ml DAILYPRN PRN PO CONSTIPATION; Start 08/15/17 at 23:15; Stop 08/25/17 at 07:59; Status DC Metoprolol Tartrate (Lopressor) 25 mg BID PO Last administered on 09/03/17 21 :04; Start 08/15/17 at 21:00; Stop 09/04/17 at 07:48; Status DC Metoprolol Tartrate (Lopressor) 25 mg Q8H PO Last administered on 09/10/17 05 :47; Start 09/04/17 at 06:00; Stop 10/04/17 at 05:59 Midazolam HCl (Versed) 2 mg Q15MP PRN IV AGITATION Last administered on 05:04; Start 08/16/17 at 00:00; Stop 08/16/17 at 10:41; Status DC Miscellaneous (Unresolved Clarification Entry) SEE LABEL COMMENTS UNRESOLVED XX ; Start 08/21/17 at 00:01; Stop 08/21/17 at 19:37; Status DC Morphine Sulfate (Morphine Sulfate In 0.9%Nacl Iv Bag) Concentration 1 mg/ml ASDIRECTED PRN IV SEE LABEL COMMENTS Last administered on 08/31/17 10:45; Start 08/23/17 at 18:00; Stop 09/01/17 at 09:20; Status DC Morphine Sulfate (Morphine Sulfate In 0.9%Nacl Iv Bag) Concentration 1 mg/ml ASDIRECTED PRN IV SEE LABEL COMMENTS Last administered on 08/18/17 18:52; Start 08/17/17 at 08:00; Stop 08/20/17 at 11:37; Status DC Morphine Sulfate (Morphine Sulfate Inj) 2 mg Q2HP PRN IV BREAKTHROUGH PAIN Last administered on 09/06/17 04:26; Start 09/01/17 at 09:30; Stop 09/14/17 at 09:29 Morphine Sulfate (Morphine Sulfate Inj) 2 mg Q2HP PRN IV PAIN Last administered on 08/17/17 06:42; Start 08/16/17 at 00:00; Stop 08/17/17 at 07:53 ; Status DC Morphine Sulfate (Morphine Sulfate Inj) 4 mg Q1H PRN IV SEVERE PAIN (PS 8-10); Start 08/15/17 at 23:15; Stop 08/15/17 at 23:53; Status DC Morphine Sulfate (Morphine Sulfate Inj) 4 mg Q4HP PRN IV SEVERE PAIN (PS 8-10) Last administered on 08/23/17 09:18; Start 08/20/17 at 11:45; Stop 08/23/17 at 17:57; Status DC Multivitamins (Theragram-M) 1 tab DAILY PO Last administered on 08/24/17 08: 29; Start 08/19/17 at 09:00; Stop 08/25/17 at 07:59; Status DC Multivitamins 10 ml/Chromium/ Copper/Manganese/ Seleni/Zn 1 ml/ Amino Ac/ Electrol/ Dextrose/Calcium 2,011 ml @ 50 mls/hr ONCE@1800 IV Last administered on 08/27/17 17:39; Start 08/27/17 at 18:00; Stop 08/28/17 at 17 :59; Status DC Multivitamins 10 ml/Chromium/ Copper/Manganese/ Seleni/Zn 1 ml/ Amino Ac/ Electrol/ Dextrose/Calcium 2,011 ml @ 50 mls/hr ONCE@1800 IV Last administered on 08/29/17 17:42; Start 08/29/17 at 18:00; Stop 08/30/17 at 17 :59; Status DC Multivitamins 10 ml/Chromium/ Copper/Manganese/ Seleni/Zn 1 ml/ Amino Ac/ Electrol/ Dextrose/Calcium 2,011 ml @ 85 mls/hr ONCE@1800 IV Last administered on 08/24/17 17:49; Start 08/24/17 at 18:00; Stop 08/25/17 at 17 :59; Status DC Nalbuphine HCl (Nubain) 2.5 mg Q6HP PRN IV PRURITIS; Start 08/23/17 at 18:00; Stop 09/01/17 at 09:20; Status DC Nalbuphine HCl (Nubain) 2.5 mg Q6HP PRN IV PRURITIS; Start 08/17/17 at 08:00; Stop 08/20/17 at 11:37; Status DC Naloxone HCl (Narcan) 0.1 mg Q5MP PRN IV SEE LABEL COMMENTS; Start 08/23/17 at 18:00; Stop 09/01/17 at 09:20; Status DC Naloxone HCl (Narcan) 0.1 mg Q5MP PRN IV SEE LABEL COMMENTS; Start 08/17/17 at 08:00; Stop 08/20/17 at 11:37; Status DC Nitroglycerin (Nitrostat (1/ 150)) 0.4 mg Q5MP PRN SL CHEST PAIN; Start at 09:30; Stop 09/18/17 at 09:29 Non-Formulary Medication (Epidural/DENTAL BILLING SPECIALIST [place]) USE THIS ENTRY TO VEND ... Q1M PRN XX SEE LABEL COMMENTS; Start 08/23/17 at 18:00; Stop 09/01/17 at 09:20; Status DC Non-Formulary Medication (Epidural/DENTAL BILLING SPECIALIST [place]) USE THIS ENTRY TO VEND ... Q1M PRN XX SEE LABEL COMMENTS; Start 08/17/17 at 08:00; Stop 08/20/17 at 11:37; Status DC Octreotide Acetate (SandoSTATIN) 100 mcg Q8H SC Last administered on 05:03; Start 08/20/17 at 14:00; Stop 08/24/17 at 07:37; Status DC Octreotide Acetate (SandoSTATIN) 200 mcg Q8H SC Last administered on 05:23; Start 08/24/17 at 14:00; Stop 08/29/17 at 09:05; Status DC Octreotide Acetate (SandoSTATIN) 200 mcg Q8H SC Last administered on 05:46; Start 09/07/17 at 14:00; Stop 10/07/17 at 13:59 Ondansetron HCl (ZOFRAN INJection) 4 mg Q4HP PRN IV NAUSEA OR VOMITING; Start 08/23/17 at 18:30; Stop 08/23/17 at 19:30; Status DC Ondansetron HCl (ZOFRAN INJection) 4 mg Q4HP PRN IV NAUSEA OR VOMITING; Start 08/16/17 at 00:00; Stop 08/16/17 at 01:15; Status DC Ondansetron HCl (ZOFRAN INJection) 4 mg Q6HP PRN IV NAUSEA; Start 08/23/17 at 18:00; Stop 09/01/17 at 09:20; Status DC Ondansetron HCl (ZOFRAN INJection) 4 mg Q6HP PRN IV NAUSEA OR VOMITING; Start 08/15/17 at 23:15; Stop 08/27/17 at 09:26; Status DC Ondansetron HCl (ZOFRAN INJection) 4 mg Q6HP PRN IV NAUSEA; Start 08/17/17 at 08:00; Stop 08/20/17 at 11:37; Status DC Pantoprazole Sodium (Protonix) 40 mg BID IV Last administered on 09/09/17 21: 43; Start 08/23/17 at 21:00; Stop 09/22/17 at 20:59 Pantoprazole Sodium (Protonix) 40 mg BID IV Last administered on 08/23/17 09: 34; Start 08/16/17 at 09:00; Stop 08/23/17 at 17:56; Status DC Phenol (Chloraseptic (Cepacol)) 1 spray Q2HP PRN MT SORE THROAT; Start at 15:45; Stop 09/30/17 at 15:44 Pneumococcal Polyvalent Vaccine (Prevnar 13) 0.5 ml ASDIRECTED IM Last administered on 08/19/17 10:16; Start 08/16/17 at 11:15; Stop 08/19/17 at 14:14 ; Status DC Propofol 1000 mg/ IV Miscellaneous Supplies 100 ml @ 6.68 mls/hr [id number] IV Last administered on 08/16/17 05:22; Start 08/15/17 at 23:47; Stop 08/16/17 at 10:41; Status DC Sodium Chloride 1,000 ml @ 15 mls/hr Q24H IV ; Start 08/23/17 at 17:53; Stop 08/24/17 at 07:51; Status DC Sodium Chloride 1,000 ml @ 15 mls/hr Q24H IV ; Start 08/17/17 at 07:49; Stop 08/17/17 at 07:55; Status DC Sodium Chloride 1,000 ml @ 30 mls/hr Q24H IV Last administered on 08/31/17 17:17; Start 08/24/17 at 18:00; Stop 09/03/17 at 01:57; Status DC Sodium Chloride 1,000 ml @ 200 mls/hr Q5H IV Last administered on 08/24/17 14:00; Start 08/24/17 at 07:45; Stop 08/24/17 at 17:21; Status DC Sodium Chloride (Saline Lock Flush) 10 ml ASDIRECTED PRN IV SEE LABEL COMMENTS Last administered on 09/09/17 21:43; Start 08/24/17 at 12:15; Stop 09/23/17 at 12:14 Sodium Chloride (Saline Lock Flush) 10 ml ASDIRECTED PRN IV SEE LABEL COMMENTS ; Start 08/20/17 at 20:45; Stop 08/21/17 at 14:31; Status DC Sodium Chloride (Saline Lock Flush) 10 ml PICC IV Last administered on 05:46; Start 08/24/17 at 18:00; Stop 09/23/17 at 17:59 Sodium Chloride (Saline Lock Flush) 10 ml SLF IV Last administered on 05:13; Start 08/20/17 at 22:00; Stop 08/21/17 at 14:31; Status DC Sucralfate (Carafate Suspension) 1 gm Q6H GT Last administered on 09/10/17 05 :46; Start 09/09/17 at 12:00; Stop 10/09/17 at 11:59 Vitamin D (Vitamin D) 1,000 units DAILY PO Last administered on 08/23/17 09: 36; Start 08/19/17 at 09:00; Stop 08/23/17 at 20:45; Status DC Zolpidem Tartrate (Ambien) 2.5 mg QHS PRN PO INSOMNIA Last administered on 01:20; Start 09/01/17 at 18:15; Stop 09/14/17 at 18:14 Allergies Coded Allergies: Penicillins (Verified Adverse Reaction, Intermediate, STOMACH ULCERS MANY YEARS AGO, 09/03/17) Objective Physical Examination Examination GENERAL APPEARANCE: Comfortable seems tired, mildly depressed. SKIN: Warm and dry. HEENT: Normocephalic, atraumatic. [place] palpebral conjunctiva, anicteric sclerae. Lips and mucosa appear moist. NECK: Supple, no thyromegaly. No obvious jugular venous distention. LUNGS: Clear to auscultation bilaterally. No wheezing appreciated. HEART: No chest wall abnormalities. Regular rate and rhythm with no murmurs appreciated. ABDOMEN: Abdomen is round, soft, nondistended. Midline incision with the top 2 cm open with some multiple small amount of mild purulent drainage. I probed this area and did not get Much. Iodoform dressing was placed back this. Rest of the amisha were removed. Right side drain with bili is slightly brownish content. Left side has a gastrostomy tube to suction and a jejunostomy tube used for feeding.. EXTREMITIES: Extremities have no deformities. No edema identified. Vital Signs Vital Signs Date Time Temp Pulse Resp B/P (MAP) Pulse Ox O2 Delivery O2 Flow Rate FiO2 09/10/17 09:07 97.2 72 16 120/78 (92) 98 Room Air I&Os I&O- Last 24 Hours up to 6 AM 09/11/17 06:00 Output Total 60 ml Balance -60 ml Laboratory Data Labs 24H Laboratory Tests 2 09/10/17 06:33: Nucleated Red Blood Cells % (auto) 0.0, Anion Gap 6L, Glomerular Filtration Rate > 60.0, Blood Urea Nitrogen 24H, Creatinine 0.70, Sodium Level 135L, Potassium Level 3.6, Chloride Level 98, Carbon Dioxide Level 31, Calcium Level 8.2L CBC/BMP Laboratory Tests 09/10/17 06:33 Red Blood Count 3.24 L, Mean Corpuscular Volume 94.8, Mean Corpuscular Hemoglobin 31.5, Mean Corpuscular Hemoglobin Concent 33.2, Red Cell Distribution Width 14.2, Calcium Level 8.2 L Impression Perforated scarred duodenal ulcer (bulb toward 2nd portion of duodenum) POD26 Exploratory Laparotomy, Omental patch closure of perforation, lateral internal duodenostomy, Pyloric Exclusion, Feeding jejunostomy POD18 Re-exploration Repair of site of duodenostomy - site of leak, retrograde gastrojejunostomy to duodenum (for drainage), washout of abdomen malnutrition - check prealbumin, albumin weekly His output was last this weekend but seems to be more this morning. We'll continue to watch the output. Thinking about may be putting a cholecystostomy tube if the output increases to try to further decrease the amount of fluid getting into the duodenum. 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 We will continue with jejunostomy feeding and recheck his albumin and prealbumin tomorrow and make sure he is in an anabolic state prior to sending him home. If the duodenal fistula output has remained the same will discontinue the antibiotics as his white count has come down to normal. He had a small area on his upper abdominal incision is a small amount of purulent drainage which probably is more the cause of the slight bump in the white cell count for the past 3 days as we have now open and draining this and the white count is returned back to normal. Again a have told him that this will need a prolonged time to heal. If he remains stable this week, with no start to evaluate how to get him home next week. Plan / VTE VTE Prophylaxis Ordered?: Yes Plan / Urinary Catheter Urinary Catheter: D/C [place] Reason for insertion/continuin: Critical Pt monitoring ORA SIMPSON MD Sep 10, 2017 09:21
[2017-09-10] MEDS: ISOSORBIDE MON. (IMDUR) 30 MG XR TAB PO SCH (10:04)
[2017-09-10] MEDS: ASPIRIN 81 MG ENTERIC TAB PO SCH (10:04)
[2017-09-10] MEDS: PANTOPRAZOLE 40MG INJ (PROTONIX) (C9113) IV SCH ×2 (10:05→21:12)
[2017-09-10] MEDS: DIAPER RELIEF PASTE (DESITIN) 60GM TOP SCH ×2 (10:06→21:14)
[2017-09-10 14:23] VITALS: BP 120/78
[2017-09-10] MEDS: ERTAPENEM SODIUM 1 GM in NS MINI-BAG PLUS 50 ML IV SCH (16:27)
[2017-09-10] MEDS: FLUCONAZOLE 100 MG in APPROPRIATE DILUENT 1 EA IV SCH (17:21)
[2017-09-10] MEDS: SODIUM CHLORIDE 0.9% INJ 10 ML SYR IV PRN (18:41)
[2017-09-10] MEDS: ATORVASTATIN 20 MG TAB PO SCH (21:11)
[2017-09-10] MEDS: ENOXAPARIN 40 MG/0.4 ML SYRINGE (J1650) SC SCH (21:12)
[2017-09-10 22:00] VITALS: BP 109/56
[2017-09-11] MEDS: MORPHINE 2 MG/ML 1ML SYRINGE IV PRN ×3 (00:09→22:47)
[2017-09-11] MEDS: zolPIDEM TARTRATE 5 MG TAB PO PRN (00:09)
[2017-09-11] MEDS: SUCRALFATE SUSP 1GM/10ML UD GT SCH ×5 (00:09→23:53)
[2017-09-11] MEDS: OCTREOTIDE ACETATE 100 MCG/ML VIAL (J2354) SC SCH ×3 (05:21→20:19)
[2017-09-11] MEDS: METOPROLOL TART 25 MG TABLET PO SCH ×3 (05:21→20:19)
[2017-09-11] MEDS: SODIUM CHLORIDE 0.9% INJ 10 ML SYR IV SCH ×2 (05:22→18:00)
[2017-09-11 05:47] LABS: MEAN CORPUSCULAR HGB CONC 33.3 g/dl (32.0-36.5); PLATELET COUNT, AUTOMATED 226 10^3/uL (150-450); RED CELL DISTRIBUTION WIDTH 14.4 % (11.5-14.5); WHITE BLOOD COUNT 8.6 10^3/uL (4.0-10.0)
[2017-09-11 06:00] VITALS: BP 98/54
[2017-09-11 06:07] LABS: ANION GAP 6 MEQ/L (8-16); BLOOD UREA NITROGEN 21 MG/DL (7-18); CALCIUM LEVEL 7.9 MG/DL (8.8-10.2); CARBON DIOXIDE LEVEL 34 MEQ/L (21-32); CHLORIDE LEVEL 98 MEQ/L (98-107); CREATININE FOR GFR 0.73 MG/DL (0.70-1.30); GLOMERULAR FILTRATION RATE > 60.0 (>49); GLUCOSE, FASTING 103 MG/DL (80-110); POTASSIUM SERUM 3.8 MEQ/L (3.5-5.1); SODIUM LEVEL 138 MEQ/L (136-145)
[2017-09-11] MEDS: IPRATROPIUM 0.5MG/ALBUTEROL 2.5MG INH SOL UD 3ML (DUONEB)(J7620) NEB SCH ×4 (06:53→20:04)
[2017-09-11] MEDS: ISOSORBIDE MON. (IMDUR) 30 MG XR TAB PO SCH (09:00)
[2017-09-11] MEDS: ASPIRIN 81 MG ENTERIC TAB PO SCH (09:07)
[2017-09-11] MEDS: PANTOPRAZOLE 40MG INJ (PROTONIX) (C9113) IV SCH ×2 (09:07→20:18)
[2017-09-11] MEDS: DIAPER RELIEF PASTE (DESITIN) 60GM TOP SCH ×2 (09:07→20:20)
--- NOTE | 2017-09-11 13:14 | IPNPDOC ---
Subjective General Date/Time Seen The patient was seen on 09/11/17 at 08:56. Subject Chief Complaint/History The patient is a 66-year-old male admitted with a reason for visit of Perforated Duodenal Ulcer. No new changes overnight. Patient complains of mild pressure in his abdomen. Tolerating clears. 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 Still as on jejunostomy tube feeding. Current Medications Current Medications Current Medications Acetaminophen (Tylenol Tab) 650 mg Q4HP PRN PO MILD PAIN or TEMP > 101; Start 08/15/17 at 23:15; Stop 09/14/17 at 23:14 Acetaminophen/ Hydrocodone Bitart ([place], [place]nexsia 5/325) 1 tab Q4HP PRN PO MILD /MODERATE PAIN (PS 1-7); Start 08/20/17 at 11:45; Stop 08/23/17 at 20:45; Status DC Acetaminophen/ Hydrocodone Bitart ([place], [place]nex[place] 5/325) 2 tab Q4HP PRN PO SEVERE PAIN (PS 8-10) Last administered on 08/23/17 05:56; Start 08/20/17 at 11:45; Stop 08/23/17 at 20:45; Status DC Acetaminophen/ Hydrocodone Bitart ([place], Anexsia 5/325) 2 tab Q6HP PRN PO SEVERE PAIN (PS 8-10) Last administered on 09/10/17 21:11; Start 09/01/17 at 09:30; Stop 09/14/17 at 09:29 Albuterol Sulfate (Proventil Neb) 2.5 mg Q2HP PRN NEB SHORTNESS OF BREATH; Start 08/16/17 at 00:00; Stop 08/27/17 at 09:26; Status DC Albuterol/ Ipratropium (Duoneb (Ipr 0.5mg/Alb 2.5mg)) 3 ml RQ4H NEB Last administered on 08/16/17 09:25; Start 08/16/17 at 00:00; Stop 08/16/17 at 10:43 ; Status DC Albuterol/ Ipratropium (Duoneb (Ipr 0.5mg/Alb 2.5mg)) 3 ml RQID NEB Last administered on 09/11/17 06:53; Start 08/16/17 at 12:00; Stop 09/15/17 at 11: 59 Amino Ac/Electrol/ Dextrose/Calcium 2,000 ml @ 50 mls/hr ONCE@1800 IV Last administered on 08/28/17 18:06; Start 08/28/17 at 18:00; Stop 08/29/17 at 17 :59; Status DC Amino Ac/Electrol/ Dextrose/Calcium 2,000 ml @ 50 mls/hr ONCE@1800 IV Last administered on 08/30/17 18:35; Start 08/30/17 at 18:00; Stop 08/31/17 at 17 :59; Status DC Amino Ac/Electrol/ Dextrose/Calcium 2,000 ml @ 75 mls/hr ONCE@1800 IV Last administered on 08/25/17 17:15; Start 08/25/17 at 18:00; Stop 08/26/17 at 17 :59; Status DC Amino Ac/Electrol/ Dextrose/Calcium 2,000 ml @ 75 mls/hr ONCE@1800 IV Last administered on 08/26/17 17:38; Start 08/26/17 at 18:00; Stop 08/27/17 at 17 :59; Status DC Aspirin (Ecotrin) 81 mg DAILY PO Last administered on 09/10/17 10:04; Start 09/06/17 at 09:00; Stop 10/06/17 at 08:59 Atorvastatin Calcium (Lipitor) 20 mg QHS PO Last administered on 09/10/17 21: 11; Start 09/01/17 at 21:00; Stop 10/01/17 at 20:59 Atorvastatin Calcium (Lipitor) 40 mg QHS PO Last administered on 08/24/17 21: 19; Start 08/19/17 at 21:00; Stop 08/25/17 at 07:59; Status DC Chlorhexidine Gluconate (Chlorhexidine Gluconate) SWAB/BRUSH ORAL CAVITY BID MT ; Start 08/16/17 at 09:00; Stop 08/16/17 at 10:41; Status DC Cod Liver Oil/ Zinc Oxide (Desitin) APPLY TO right side abd wall BID TOP Last administered on 09/10/17 21:14; Start 09/08/17 at 09:00; Stop 10/08/17 at 08 :59 Cyclobenzaprine HCl (Flexeril) 10 mg DAILY PRN PO MUSCLE SPASMS; Start at 09:30; Stop 08/27/17 at 09:26; Status DC Diphenhydramine HCl (Benadryl) 12.5 mg Q4HP PRN IV ITCHING; Start 08/23/17 at 18:00; Stop 09/01/17 at 09:20; Status DC Diphenhydramine HCl (Benadryl) 12.5 mg Q4HP PRN IV ITCHING; Start 08/17/17 at 08:00; Stop 08/20/17 at 11:37; Status DC Enoxaparin Sodium (Lovenox) 40 mg DAILY SC Last administered on 08/20/17 08:54 ; Start 08/16/17 at 09:00; Stop 08/21/17 at 19:37; Status DC Enoxaparin Sodium (Lovenox) 40 mg DAILY@2100 SC Last administered on 21:12; Start 08/21/17 at 21:00; Stop 09/12/17 at 20:59 Ertapenem 1 gm/ Sodium Chloride 50 ml @ 100 mls/hr Q24H IV Last administered on 09/10/17 16:27; Start 09/03/17 at 17:00; Stop 09/14/17 at 16:59 Ertapenem 1 gm/ Sodium Chloride 50 ml @ 100 mls/hr Q24H IV Last administered on 08/29/17 17:42; Start 08/16/17 at 17:00; Stop 08/30/17 at 14:33; Status DC Fat Emulsion Intravenous 500 ml @ 20 mls/hr ONCE@1800 IV Last administered on 08/24/17 17:49; Start 08/24/17 at 18:00; Stop 08/25/17 at 17:59; Status DC Fat Emulsion Intravenous 500 ml @ 20 mls/hr ONCE@1800 IV Last administered on 08/25/17 17:14; Start 08/25/17 at 18:00; Stop 08/26/17 at 17:59; Status DC Fat Emulsion Intravenous 500 ml @ 20 mls/hr ONCE@1800 IV Last administered on 08/26/17 17:37; Start 08/26/17 at 18:00; Stop 08/27/17 at 17:59; Status DC Fat Emulsion Intravenous 500 ml @ 20 mls/hr ONCE@1800 IV Last administered on 08/27/17 17:39; Start 08/27/17 at 18:00; Stop 08/28/17 at 17:59; Status DC Fat Emulsion Intravenous 500 ml @ 20 mls/hr ONCE@1800 IV Last administered on 08/28/17 18:05; Start 08/28/17 at 18:00; Stop 08/29/17 at 17:59; Status DC Fat Emulsion Intravenous 500 ml @ 20 mls/hr ONCE@1800 IV Last administered on 08/29/17 17:42; Start 08/29/17 at 18:00; Stop 08/30/17 at 17:59; Status DC Fat Emulsion Intravenous 500 ml @ 20 mls/hr ONCE@1800 IV Last administered on 08/30/17 18:35; Start 08/30/17 at 18:00; Stop 08/31/17 at 17:59; Status DC Fentanyl Citrate (Sublimaze) 25 mcg Q5MP PRN IV MODERATE PAIN (PS 4-7) Last administered on 08/23/17 18:46; Start 08/23/17 at 18:30; Stop 08/23/17 at 19 :30; Status DC Fentanyl Citrate (Sublimaze) 25 mcg Q5MP PRN IV MODERATE PAIN (PS 4-7); Start 08/16/17 at 00:00; Stop 08/16/17 at 01:15; Status DC Fluconazole 100 mg/IV Miscellaneous Supplies 50 ml @ 50 mls/hr Q24H IV Last administered on 09/10/17 17:21; Start 08/24/17 at 18:00; Stop 09/12/17 at 17: 59 Heparin Sodium (Heparin (Flush)) 200 units ASDIRECTED PRN IV SEE LABEL COMMENTS Last administered on 09/10/17 18:41; Start 08/24/17 at 12:15; Stop 09/23/17 at 12:14 Heparin Sodium (Heparin (Flush)) 200 units PICC IV Last administered on 05:21; Start 08/24/17 at 18:00; Stop 09/23/17 at 17:59 Heparin Sodium (Heparin Lock Flush 10units/ml) 10 units ASDIRECTED PRN IV SEE LABEL COMMENTS; Start 08/20/17 at 20:45; Stop 08/21/17 at 14:31; Status DC Heparin Sodium (Heparin Lock Flush 10units/ml) 10 units HLF IV Last administered on 08/21/17 05:13; Start 08/20/17 at 22:00; Stop 08/21/17 at 14: 31; Status DC Home Med (Med Rec Complete!) ASDIRECTED XX ; Start 08/15/17 at 16:15; Stop 08/15/17 at 16:15; Status DC Influenza Virus Vaccine (Fluzone High Dose) 0.5 ml ASDIRECTED IM Last administered on 08/19/17 10:15; Start 08/16/17 at 11:15; Stop 08/19/17 at 14:14 ; Status DC Insulin Human Lispro (HumaLOG INSULIN) See Protocol Table Q6H SC Last administered on 08/25/17 11:50; Start 08/24/17 at 18:00; Stop 08/25/17 at 12 :01; Status DC Insulin Human Lispro (HumaLOG INSULIN) See Protocol Table Q6H SC Last administered on 08/26/17 11:40; Start 08/25/17 at 18:00; Stop 08/26/17 at 12 :01; Status DC Insulin Human Lispro (HumaLOG INSULIN) See Protocol Table Q6H SC Last administered on 08/27/17 12:09; Start 08/26/17 at 18:00; Stop 08/27/17 at 12 :01; Status DC Insulin Human Lispro (HumaLOG INSULIN) See Protocol Table Q6H SC Last administered on 08/28/17 12:15; Start 08/27/17 at 18:00; Stop 08/28/17 at 12 :01; Status DC Insulin Human Lispro (HumaLOG INSULIN) See Protocol Table Q6H SC Last administered on 08/29/17 12:33; Start 08/28/17 at 18:00; Stop 08/29/17 at 15 :00; Status DC Insulin Human Lispro (HumaLOG INSULIN) See Protocol Table Q6H SC Last administered on 08/30/17 13:25; Start 08/29/17 at 18:00; Stop 08/30/17 at 12 :01; Status DC Insulin Human Lispro (HumaLOG INSULIN) See Protocol Table Q6H SC Last administered on 08/31/17 11:43; Start 08/30/17 at 18:00; Stop 08/31/17 at 15 :00; Status DC Isosorbide Mononitrate (Imdur) 30 mg DAILY PO Last administered on 09/10/17 10:04; Start 08/19/17 at 09:00; Stop 09/18/17 at 08:59 Lactated Ringer's 1,000 ml @ 100 mls/hr Q10H IV ; Start 08/23/17 at 18:30; Stop 08/23/17 at 19:30; Status DC Lactated Ringer's 1,000 ml @ 100 mls/hr Q10H IV Last administered on 08:54; Start 08/15/17 at 17:00; Stop 08/20/17 at 11:37; Status DC Lactated Ringer's 1,000 ml @ 100 mls/hr Q10H IV ; Start 08/16/17 at 00:00; Stop 08/16/17 at 01:15; Status DC Lactated Ringer's 1,000 ml @ 200 mls/hr Q5H IV Last administered on 04:00; Start 08/22/17 at 18:00; Stop 08/24/17 at 07:46; Status DC Magnesium Hydroxide (Milk Of Magnesia) 30 ml DAILYPRN PRN PO CONSTIPATION; Start 08/15/17 at 23:15; Stop 08/25/17 at 07:59; Status DC Metoprolol Tartrate (Lopressor) 25 mg BID PO Last administered on 09/03/17 21 :04; Start 08/15/17 at 21:00; Stop 09/04/17 at 07:48; Status DC Metoprolol Tartrate (Lopressor) 25 mg Q8H PO Last administered on 09/11/17 05 :21; Start 09/04/17 at 06:00; Stop 10/04/17 at 05:59 Midazolam HCl (Versed) 2 mg Q15MP PRN IV AGITATION Last administered on 05:04; Start 08/16/17 at 00:00; Stop 08/16/17 at 10:41; Status DC Miscellaneous (Unresolved Clarification Entry) SEE LABEL COMMENTS UNRESOLVED XX ; Start 08/21/17 at 00:01; Stop 08/21/17 at 19:37; Status DC Morphine Sulfate (Morphine Sulfate In 0.9%Nacl Iv Bag) Concentration 1 mg/ml ASDIRECTED PRN IV SEE LABEL COMMENTS Last administered on 08/31/17 10:45; Start 08/23/17 at 18:00; Stop 09/01/17 at 09:20; Status DC Morphine Sulfate (Morphine Sulfate In 0.9%Nacl Iv Bag) Concentration 1 mg/ml ASDIRECTED PRN IV SEE LABEL COMMENTS Last administered on 08/18/17 18:52; Start 08/17/17 at 08:00; Stop 08/20/17 at 11:37; Status DC Morphine Sulfate (Morphine Sulfate Inj) 2 mg Q2HP PRN IV BREAKTHROUGH PAIN Last administered on 09/11/17 00:09; Start 09/01/17 at 09:30; Stop 09/14/17 at 09:29 Morphine Sulfate (Morphine Sulfate Inj) 2 mg Q2HP PRN IV PAIN Last administered on 08/17/17 06:42; Start 08/16/17 at 00:00; Stop 08/17/17 at 07:53 ; Status DC Morphine Sulfate (Morphine Sulfate Inj) 4 mg Q1H PRN IV SEVERE PAIN (PS 8-10); Start 08/15/17 at 23:15; Stop 08/15/17 at 23:53; Status DC Morphine Sulfate (Morphine Sulfate Inj) 4 mg Q4HP PRN IV SEVERE PAIN (PS 8-10) Last administered on 08/23/17 09:18; Start 08/20/17 at 11:45; Stop 08/23/17 at 17:57; Status DC Multivitamins (Theragram-M) 1 tab DAILY PO Last administered on 08/24/17 08: 29; Start 08/19/17 at 09:00; Stop 08/25/17 at 07:59; Status DC Multivitamins 10 ml/Chromium/ Copper/Manganese/ Seleni/Zn 1 ml/ Amino Ac/ Electrol/ Dextrose/Calcium 2,011 ml @ 50 mls/hr ONCE@1800 IV Last administered on 08/27/17 17:39; Start 08/27/17 at 18:00; Stop 08/28/17 at 17 :59; Status DC Multivitamins 10 ml/Chromium/ Copper/Manganese/ Seleni/Zn 1 ml/ Amino Ac/ Electrol/ Dextrose/Calcium 2,011 ml @ 50 mls/hr ONCE@1800 IV Last administered on 08/29/17 17:42; Start 08/29/17 at 18:00; Stop 08/30/17 at 17 :59; Status DC Multivitamins 10 ml/Chromium/ Copper/Manganese/ Seleni/Zn 1 ml/ Amino Ac/ Electrol/ Dextrose/Calcium 2,011 ml @ 85 mls/hr ONCE@1800 IV Last administered on 08/24/17 17:49; Start 08/24/17 at 18:00; Stop 08/25/17 at 17 :59; Status DC Nalbuphine HCl (Nubain) 2.5 mg Q6HP PRN IV PRURITIS; Start 08/23/17 at 18:00; Stop 09/01/17 at 09:20; Status DC Nalbuphine HCl (Nubain) 2.5 mg Q6HP PRN IV PRURITIS; Start 08/17/17 at 08:00; Stop 08/20/17 at 11:37; Status DC Naloxone HCl (Narcan) 0.1 mg Q5MP PRN IV SEE LABEL COMMENTS; Start 08/23/17 at 18:00; Stop 09/01/17 at 09:20; Status DC Naloxone HCl (Narcan) 0.1 mg Q5MP PRN IV SEE LABEL COMMENTS; Start 08/17/17 at 08:00; Stop 08/20/17 at 11:37; Status DC Nitroglycerin (Nitrostat (1/ 150)) 0.4 mg Q5MP PRN SL CHEST PAIN; Start at 09:30; Stop 09/18/17 at 09:29 Non-Formulary Medication (Epidural/SUPERVIS[employer] Brent) USE THIS ENTRY TO VEND ... Q1M PRN XX SEE LABEL COMMENTS; Start 08/23/17 at 18:00; Stop 09/01/17 at 09:20; Status DC Non-Formulary Medication (Epidural/SUPERVISOR [employer]SE Brent) USE THIS ENTRY TO VEND ... Q1M PRN XX SEE LABEL COMMENTS; Start 08/17/17 at 08:00; Stop 08/20/17 at 11:37; Status DC Octreotide Acetate (SandoSTATIN) 100 mcg Q8H SC Last administered on 05:03; Start 08/20/17 at 14:00; Stop 08/24/17 at 07:37; Status DC Octreotide Acetate (SandoSTATIN) 200 mcg Q8H SC Last administered on 05:23; Start 08/24/17 at 14:00; Stop 08/29/17 at 09:05; Status DC Octreotide Acetate (SandoSTATIN) 200 mcg Q8H SC Last administered on 05:21; Start 09/07/17 at 14:00; Stop 10/07/17 at 13:59 Ondansetron HCl (ZOFRAN INJection) 4 mg Q4HP PRN IV NAUSEA OR VOMITING; Start 08/23/17 at 18:30; Stop 08/23/17 at 19:30; Status DC Ondansetron HCl (ZOFRAN INJection) 4 mg Q4HP PRN IV NAUSEA OR VOMITING; Start 08/16/17 at 00:00; Stop 08/16/17 at 01:15; Status DC Ondansetron HCl (ZOFRAN INJection) 4 mg Q6HP PRN IV NAUSEA; Start 08/23/17 at 18:00; Stop 09/01/17 at 09:20; Status DC Ondansetron HCl (ZOFRAN INJection) 4 mg Q6HP PRN IV NAUSEA OR VOMITING; Start 08/15/17 at 23:15; Stop 08/27/17 at 09:26; Status DC Ondansetron HCl (ZOFRAN INJection) 4 mg Q6HP PRN IV NAUSEA; Start 08/17/17 at 08:00; Stop 08/20/17 at 11:37; Status DC Pantoprazole Sodium (Protonix) 40 mg BID IV Last administered on 09/10/17 21: 12; Start 08/23/17 at 21:00; Stop 09/22/17 at 20:59 Pantoprazole Sodium (Protonix) 40 mg BID IV Last administered on 08/23/17 09: 34; Start 08/16/17 at 09:00; Stop 08/23/17 at 17:56; Status DC Phenol (Chloraseptic (Cepacol)) 1 spray Q2HP PRN MT SORE THROAT; Start at 15:45; Stop 09/30/17 at 15:44 Pneumococcal Polyvalent Vaccine (Prevnar 13) 0.5 ml ASDIRECTED IM Last administered on 08/19/17 10:16; Start 08/16/17 at 11:15; Stop 08/19/17 at 14:14 ; Status DC Propofol 1000 mg/ IV Miscellaneous Supplies 100 ml @ 6.68 mls/hr [id number] IV Last administered on 08/16/17 05:22; Start 08/15/17 at 23:47; Stop 08/16/17 at 10:41; Status DC Sodium Chloride 1,000 ml @ 15 mls/hr Q24H IV ; Start 08/23/17 at 17:53; Stop 08/24/17 at 07:51; Status DC Sodium Chloride 1,000 ml @ 15 mls/hr Q24H IV ; Start 08/17/17 at 07:49; Stop 08/17/17 at 07:55; Status DC Sodium Chloride 1,000 ml @ 30 mls/hr Q24H IV Last administered on 08/31/17 17:17; Start 08/24/17 at 18:00; Stop 09/03/17 at 01:57; Status DC Sodium Chloride 1,000 ml @ 200 mls/hr Q5H IV Last administered on 08/24/17 14:00; Start 08/24/17 at 07:45; Stop 08/24/17 at 17:21; Status DC Sodium Chloride (Saline Lock Flush) 10 ml ASDIRECTED PRN IV SEE LABEL COMMENTS Last administered on 09/10/17 18:41; Start 08/24/17 at 12:15; Stop 09/23/17 at 12:14 Sodium Chloride (Saline Lock Flush) 10 ml ASDIRECTED PRN IV SEE LABEL COMMENTS ; Start 08/20/17 at 20:45; Stop 08/21/17 at 14:31; Status DC Sodium Chloride (Saline Lock Flush) 10 ml PICC IV Last administered on 05:22; Start 08/24/17 at 18:00; Stop 09/23/17 at 17:59 Sodium Chloride (Saline Lock Flush) 10 ml SLF IV Last administered on 05:13; Start 08/20/17 at 22:00; Stop 08/21/17 at 14:31; Status DC Sucralfate (Carafate Suspension) 1 gm Q6H GT Last administered on 09/11/17 05 :20; Start 09/09/17 at 12:00; Stop 10/09/17 at 11:59 Vitamin D (Vitamin D) 1,000 units DAILY PO Last administered on 08/23/17 09: 36; Start 08/19/17 at 09:00; Stop 08/23/17 at 20:45; Status DC Zolpidem Tartrate (Ambien) 2.5 mg QHS PRN PO INSOMNIA Last administered on 00:09; Start 09/01/17 at 18:15; Stop 09/14/17 at 18:14 Allergies Coded Allergies: Penicillins (Verified Adverse Reaction, Intermediate, STOMACH ULCERS MANY YEARS AGO, 09/03/17) Objective Physical Examination Examination GENERAL APPEARANCE:[Patient seen, laying in bed, awake, alert, and oriented. Comfortable, in no acute distress]. SKIN: Warm and dry. HEENT: [Normocephalic, atraumatic. [place] palpebral conjunctiva, anicteric sclerae. Lips and mucosa appear moist]. NECK: [Supple, no thyromegaly. No obvious jugular venous distention]. LUNGS: [Clear to auscultation bilaterally. No wheezing appreciated]. HEART: [No chest wall abnormalities. Regular rate and rhythm with no murmurs appreciated]. ABDOMEN: Abdomen is nondistended, soft, round. Drains as previously noted. Still with bilious output on the right YORDY drain. Gastrostomy tube to low intermittent wall suction and jejunostomy tube to feeding. Small opening on the top portion of the midline incision without much drainage today.. EXTREMITIES: [Extremities have no deformities. No edema identified]. Vital Signs Vital Signs Date Time Temp Pulse Resp B/P (MAP) Pulse Ox O2 Delivery O2 Flow Rate FiO2 09/11/17 06:00 97.9 93 20 98/54 (69) 90 Room Air I&Os I&O- Last 24 Hours up to 6 AM 09/12/17 06:00 Intake Total 1500 ml Output Total 400 ml Balance 1100 ml Laboratory Data Labs 24H Laboratory Tests 2 09/11/17 05:30: Nucleated Red Blood Cells % (auto) 0.0, Anion Gap 6L, Glomerular Filtration Rate > 60.0, Blood Urea Nitrogen 21H, Creatinine 0.73, Sodium Level 138, Potassium Level 3.8, Chloride Level 98, Carbon Dioxide Level 34H, Calcium Level 7.9L, Prealbumin 18.8L CBC/BMP Laboratory Tests 09/11/17 05:30 Red Blood Count 3.03 L, Mean Corpuscular Volume 96.0, Mean Corpuscular Hemoglobin 32.0, Mean Corpuscular Hemoglobin Concent 33.3, Red Cell Distribution Width 14.4, Calcium Level 7.9 L Impression Perforated scarred duodenal ulcer (bulb toward 2nd portion of duodenum) POD27 Exploratory Laparotomy, Omental patch closure of perforation, lateral internal duodenostomy, Pyloric Exclusion, Feeding jejunostomy POD19 Re-exploration Repair of site of duodenostomy - site of leak, retrograde gastrojejunostomy to duodenum (for drainage), washout of abdomen malnutrition - check prealbumin, albumin weekly I will start him on full liquids. 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 Plan / VTE VTE Prophylaxis Ordered?: Yes Plan / Urinary Catheter Urinary Catheter: D/C [place] Reason for insertion/continuin: Critical Pt monitoring ORA SIMPSON MD Sep 11, 2017 08:57
[2017-09-11 14:00] VITALS: BP 126/64
[2017-09-11] MEDS: ERTAPENEM SODIUM 1 GM in NS MINI-BAG PLUS 50 ML IV SCH (17:26)
[2017-09-11] MEDS: FLUCONAZOLE 100 MG in APPROPRIATE DILUENT 1 EA IV SCH (18:00)
[2017-09-11] MEDS: ENOXAPARIN 40 MG/0.4 ML SYRINGE (J1650) SC SCH (20:19)
[2017-09-11] MEDS: ATORVASTATIN 20 MG TAB PO SCH (20:19)
[2017-09-11 22:00] VITALS: BP 97/54
[2017-09-11] MEDS: SODIUM CHLORIDE 0.9% INJ 10 ML SYR IV PRN (22:46)
[2017-09-12] MEDS: SUCRALFATE SUSP 1GM/10ML UD GT SCH ×3 (05:48→17:59)
[2017-09-12] MEDS: OCTREOTIDE ACETATE 100 MCG/ML VIAL (J2354) SC SCH ×3 (05:49→22:18)
[2017-09-12] MEDS: SODIUM CHLORIDE 0.9% INJ 10 ML SYR IV SCH ×2 (05:51→17:59)
[2017-09-12 06:00] VITALS: BP 98/55
[2017-09-12] MEDS: METOPROLOL TART 25 MG TABLET PO SCH ×3 (06:00→22:21)
[2017-09-12 06:26] LABS: MEAN CORPUSCULAR HEMOGLOBIN 31.2 pg (27.0-33.0); MEAN CORPUSCULAR HGB CONC 32.8 g/dl (32.0-36.5); MEAN CORPUSCULAR VOLUME 95.1 fl (80.0-96.0); PLATELET COUNT, AUTOMATED 245 10^3/uL (150-450); RED CELL DISTRIBUTION WIDTH 14.6 % (11.5-14.5); WHITE BLOOD COUNT 10.3 10^3/uL (4.0-10.0)
[2017-09-12 06:39] LABS: ANION GAP 7 MEQ/L (8-16); BLOOD UREA NITROGEN 22 MG/DL (7-18); CALCIUM LEVEL 8.3 MG/DL (8.8-10.2); CARBON DIOXIDE LEVEL 33 MEQ/L (21-32); CHLORIDE LEVEL 98 MEQ/L (98-107); CREATININE FOR GFR 0.83 MG/DL (0.70-1.30); GLOMERULAR FILTRATION RATE > 60.0 (>49); GLUCOSE, FASTING 90 MG/DL (80-110); POTASSIUM SERUM 4.2 MEQ/L (3.5-5.1); SODIUM LEVEL 138 MEQ/L (136-145)
[2017-09-12] MEDS: NORCO, ANEXSIA 5/325MG TABLET (HYDROcodone/ACETAMINOPHEN) PO PRN ×2 (08:03→14:14)
[2017-09-12] MEDS: IPRATROPIUM 0.5MG/ALBUTEROL 2.5MG INH SOL UD 3ML (DUONEB)(J7620) NEB SCH ×3 (09:07→20:33)
[2017-09-12] MEDS: LevoFLOXacin 500 MG TABLET PO SCH (10:06)
[2017-09-12] MEDS: ASPIRIN 81 MG ENTERIC TAB PO SCH (10:06)
[2017-09-12] MEDS: PANTOPRAZOLE 40MG INJ (PROTONIX) (C9113) IV SCH ×2 (10:07→23:14)
[2017-09-12] MEDS: ISOSORBIDE MON. (IMDUR) 30 MG XR TAB PO SCH (10:07)
[2017-09-12] MEDS: SODIUM CHLORIDE 0.9% INJ 10 ML SYR IV PRN ×3 (10:08→17:59)
[2017-09-12] MEDS: DIAPER RELIEF PASTE (DESITIN) 60GM TOP SCH ×2 (10:08→22:21)
[2017-09-12] MEDS: MORPHINE 2 MG/ML 1ML SYRINGE IV PRN (12:05)
[2017-09-12 14:00] VITALS: BP 108/56
[2017-09-12] MEDS ORDERED: LIDOCAINE 1% MDV INJ 50 ML VIAL SC SCH (14:30)
[2017-09-12] MEDS ORDERED: LIDOCAINE 1% MDV 20ML VIAL As Ordered ONE (14:30)
[2017-09-12 22:00] VITALS: BP 110/65
[2017-09-12] MEDS: ENOXAPARIN 40 MG/0.4 ML SYRINGE (J1650) SC SCH (22:18)
[2017-09-12] MEDS: ATORVASTATIN 20 MG TAB PO SCH (22:20)
[2017-09-13] MEDS: SUCRALFATE SUSP 1GM/10ML UD GT SCH ×4 (00:47→17:47)
[2017-09-13 05:51] LABS: MEAN CORPUSCULAR HEMOGLOBIN 31.4 pg (27.0-33.0); MEAN CORPUSCULAR HGB CONC 33.1 g/dl (32.0-36.5); MEAN CORPUSCULAR VOLUME 94.8 fl (80.0-96.0); PLATELET COUNT, AUTOMATED 243 10^3/uL (150-450); WHITE BLOOD COUNT 10.1 10^3/uL (4.0-10.0)
[2017-09-13 06:00] VITALS: BP 116/68
[2017-09-13] MEDS: METOPROLOL TART 25 MG TABLET PO SCH ×3 (06:04→21:42)
[2017-09-13] MEDS: LevoFLOXacin 500 MG TABLET PO SCH (06:05)
[2017-09-13] MEDS: OCTREOTIDE ACETATE 100 MCG/ML VIAL (J2354) SC SCH ×3 (06:05→21:41)
[2017-09-13 06:12] LABS: ANION GAP 5 MEQ/L (8-16); BLOOD UREA NITROGEN 22 MG/DL (7-18); CALCIUM LEVEL 8.4 MG/DL (8.8-10.2); CARBON DIOXIDE LEVEL 34 MEQ/L (21-32); CHLORIDE LEVEL 99 MEQ/L (98-107); CREATININE FOR GFR 0.91 MG/DL (0.70-1.30); GLOMERULAR FILTRATION RATE > 60.0 (>49); GLUCOSE, FASTING 112 MG/DL (80-110); SODIUM LEVEL 138 MEQ/L (136-145)
[2017-09-13] MEDS: SODIUM CHLORIDE 0.9% INJ 10 ML SYR IV SCH ×2 (06:15→17:47)
[2017-09-13] MEDS: IPRATROPIUM 0.5MG/ALBUTEROL 2.5MG INH SOL UD 3ML (DUONEB)(J7620) NEB SCH ×4 (07:03→20:00)
[2017-09-13] MEDS: ASPIRIN 81 MG ENTERIC TAB PO SCH (08:45)
[2017-09-13] MEDS: PANTOPRAZOLE 40MG INJ (PROTONIX) (C9113) IV SCH ×2 (08:45→21:41)
[2017-09-13] MEDS: ISOSORBIDE MON. (IMDUR) 30 MG XR TAB PO SCH (08:45)
[2017-09-13] MEDS: DIAPER RELIEF PASTE (DESITIN) 60GM TOP SCH ×2 (08:45→21:43)
[2017-09-13 14:00] VITALS: BP 112/60
[2017-09-13] MEDS: ENOXAPARIN 40 MG/0.4 ML SYRINGE (J1650) SC SCH (21:41)
[2017-09-13] MEDS: ATORVASTATIN 20 MG TAB PO SCH (21:42)
[2017-09-13 22:00] VITALS: BP 117/63
--- NOTE | 2017-09-13 22:49 | IPNPDOC ---
Subjective General Date/Time Seen The patient was seen on 09/13/17 at 12:45. Subject Chief Complaint/History The patient is a 66-year-old male admitted with a reason for visit of Perforated Duodenal Ulcer. No complaints at this time. Feedings tube still clogged. Nurse is reporting some drainage around the YORDY drain site. She was a bit concerned that the gastrostomy output has become yellowish in character at the right now appears bilious. Denies any abdominal pain. Current Medications Current Medications Current Medications Acetaminophen (Tylenol Tab) 650 mg Q4HP PRN PO MILD PAIN or TEMP > 101; Start 08/15/17 at 23:15; Stop 10/13/17 at 23:14 Acetaminophen/ Hydrocodone Bitart (Bre[place], [place] 5/325) 1 tab Q4HP PRN PO MILD /MODERATE PAIN (PS 1-7); Start 08/20/17 at 11:45; Stop 08/23/17 at 20:45; Status DC Acetaminophen/ Hydrocodone Bitart ([place], [place] 5/325) 2 tab Q4HP PRN PO SEVERE PAIN (PS 8-10) Last administered on 08/23/17 05:56; Start 08/20/17 at 11:45; Stop 08/23/17 at 20:45; Status DC Acetaminophen/ Hydrocodone Bitart ([place], [place]nex[place]ia 5/325) 2 tab Q6HP PRN PO SEVERE PAIN (PS 8-10) Last administered on 09/12/17 14:14; Start 09/01/17 at 09:30; Stop 09/20/17 at 09:29 Albuterol Sulfate (Proventil Neb) 2.5 mg Q2HP PRN NEB SHORTNESS OF BREATH; Start 08/16/17 at 00:00; Stop 08/27/17 at 09:26; Status DC Albuterol/ Ipratropium (Duoneb (Ipr 0.5mg/Alb 2.5mg)) 3 ml RQ4H NEB Last administered on 08/16/17 09:25; Start 08/16/17 at 00:00; Stop 08/16/17 at 10:43 ; Status DC Albuterol/ Ipratropium (Duoneb (Ipr 0.5mg/Alb 2.5mg)) 3 ml RQID NEB Last administered on 09/13/17 11:23; Start 08/16/17 at 12:00; Stop 09/15/17 at 11:59 Amino Ac/Electrol/ Dextrose/Calcium 2,000 ml @ 50 mls/hr ONCE@1800 IV Last administered on 08/28/17 18:06; Start 08/28/17 at 18:00; Stop 08/29/17 at 17 :59; Status DC Amino Ac/Electrol/ Dextrose/Calcium 2,000 ml @ 50 mls/hr ONCE@1800 IV Last administered on 08/30/17 18:35; Start 08/30/17 at 18:00; Stop 08/31/17 at 17 :59; Status DC Amino Ac/Electrol/ Dextrose/Calcium 2,000 ml @ 75 mls/hr ONCE@1800 IV Last administered on 08/25/17 17:15; Start 08/25/17 at 18:00; Stop 08/26/17 at 17 :59; Status DC Amino Ac/Electrol/ Dextrose/Calcium 2,000 ml @ 75 mls/hr ONCE@1800 IV Last administered on 08/26/17 17:38; Start 08/26/17 at 18:00; Stop 08/27/17 at 17 :59; Status DC Aspirin (Ecotrin) 81 mg DAILY PO Last administered on 09/13/17 08:45; Start 09/06/17 at 09:00; Stop 10/06/17 at 08:59 Atorvastatin Calcium (Lipitor) 20 mg QHS PO Last administered on 09/13/17 21: 42; Start 09/01/17 at 21:00; Stop 10/01/17 at 20:59 Atorvastatin Calcium (Lipitor) 40 mg QHS PO Last administered on 08/24/17 21: 19; Start 08/19/17 at 21:00; Stop 08/25/17 at 07:59; Status DC Chlorhexidine Gluconate (Chlorhexidine Gluconate) SWAB/BRUSH ORAL CAVITY BID MT ; Start 08/16/17 at 09:00; Stop 08/16/17 at 10:41; Status DC Cod Liver Oil/ Zinc Oxide (Desitin) APPLY TO right side abd wall BID TOP Last administered on 09/13/17 21:43; Start 09/08/17 at 09:00; Stop 10/08/17 at 08: 59 Cyclobenzaprine HCl (Flexeril) 10 mg DAILY PRN PO MUSCLE SPASMS; Start at 09:30; Stop 08/27/17 at 09:26; Status DC Diphenhydramine HCl (Benadryl) 12.5 mg Q4HP PRN IV ITCHING; Start 08/23/17 at 18:00; Stop 09/01/17 at 09:20; Status DC Diphenhydramine HCl (Benadryl) 12.5 mg Q4HP PRN IV ITCHING; Start 08/17/17 at 08:00; Stop 08/20/17 at 11:37; Status DC Enoxaparin Sodium (Lovenox) 40 mg DAILY SC Last administered on 08/20/17 08:54 ; Start 08/16/17 at 09:00; Stop 08/21/17 at 19:37; Status DC Enoxaparin Sodium (Lovenox) 40 mg DAILY@2100 SC Last administered on 09/13/17 21:41; Start 08/21/17 at 21:00; Stop 09/16/17 at 20:59 Ertapenem 1 gm/ Sodium Chloride 50 ml @ 100 mls/hr Q24H IV Last administered on 09/11/17 17:26; Start 09/03/17 at 17:00; Stop 09/12/17 at 08:45; Status DC Ertapenem 1 gm/ Sodium Chloride 50 ml @ 100 mls/hr Q24H IV Last administered on 08/29/17 17:42; Start 08/16/17 at 17:00; Stop 08/30/17 at 14:33; Status DC Fat Emulsion Intravenous 500 ml @ 20 mls/hr ONCE@1800 IV Last administered on 08/24/17 17:49; Start 08/24/17 at 18:00; Stop 08/25/17 at 17:59; Status DC Fat Emulsion Intravenous 500 ml @ 20 mls/hr ONCE@1800 IV Last administered on 08/25/17 17:14; Start 08/25/17 at 18:00; Stop 08/26/17 at 17:59; Status DC Fat Emulsion Intravenous 500 ml @ 20 mls/hr ONCE@1800 IV Last administered on 08/26/17 17:37; Start 08/26/17 at 18:00; Stop 08/27/17 at 17:59; Status DC Fat Emulsion Intravenous 500 ml @ 20 mls/hr ONCE@1800 IV Last administered on 08/27/17 17:39; Start 08/27/17 at 18:00; Stop 08/28/17 at 17:59; Status DC Fat Emulsion Intravenous 500 ml @ 20 mls/hr ONCE@1800 IV Last administered on 08/28/17 18:05; Start 08/28/17 at 18:00; Stop 08/29/17 at 17:59; Status DC Fat Emulsion Intravenous 500 ml @ 20 mls/hr ONCE@1800 IV Last administered on 08/29/17 17:42; Start 08/29/17 at 18:00; Stop 08/30/17 at 17:59; Status DC Fat Emulsion Intravenous 500 ml @ 20 mls/hr ONCE@1800 IV Last administered on 08/30/17 18:35; Start 08/30/17 at 18:00; Stop 08/31/17 at 17:59; Status DC Fentanyl Citrate (Sublimaze) 25 mcg Q5MP PRN IV MODERATE PAIN (PS 4-7) Last administered on 08/23/17 18:46; Start 08/23/17 at 18:30; Stop 08/23/17 at 19 :30; Status DC Fentanyl Citrate (Sublimaze) 25 mcg Q5MP PRN IV MODERATE PAIN (PS 4-7); Start 08/16/17 at 00:00; Stop 08/16/17 at 01:15; Status DC Fluconazole 100 mg/IV Miscellaneous Supplies 50 ml @ 50 mls/hr Q24H IV Last administered on 09/11/17 18:00; Start 08/24/17 at 18:00; Stop 09/12/17 at 08: 45; Status DC Heparin Sodium (Heparin (Flush)) 200 units ASDIRECTED PRN IV SEE LABEL COMMENTS Last administered on 09/12/17 17:59; Start 08/24/17 at 12:15; Stop 09/23/17 at 12:14 Heparin Sodium (Heparin (Flush)) 200 units PICC IV Last administered on 17:47; Start 08/24/17 at 18:00; Stop 09/23/17 at 17:59 Heparin Sodium (Heparin Lock Flush 10units/ml) 10 units ASDIRECTED PRN IV SEE LABEL COMMENTS; Start 08/20/17 at 20:45; Stop 08/21/17 at 14:31; Status DC Heparin Sodium (Heparin Lock Flush 10units/ml) 10 units HLF IV Last administered on 08/21/17 05:13; Start 08/20/17 at 22:00; Stop 08/21/17 at 14: 31; Status DC Home Med (Med Rec Complete!) ASDIRECTED XX ; Start 08/15/17 at 16:15; Stop 08/15/17 at 16:15; Status DC Influenza Virus Vaccine (Fluzone High Dose) 0.5 ml ASDIRECTED IM Last administered on 08/19/17 10:15; Start 08/16/17 at 11:15; Stop 08/19/17 at 14:14 ; Status DC Insulin Human Lispro (HumaLOG INSULIN) See Protocol Table Q6H SC Last administered on 08/25/17 11:50; Start 08/24/17 at 18:00; Stop 08/25/17 at 12 :01; Status DC Insulin Human Lispro (HumaLOG INSULIN) See Protocol Table Q6H SC Last administered on 08/26/17 11:40; Start 08/25/17 at 18:00; Stop 08/26/17 at 12 :01; Status DC Insulin Human Lispro (HumaLOG INSULIN) See Protocol Table Q6H SC Last administered on 08/27/17 12:09; Start 08/26/17 at 18:00; Stop 08/27/17 at 12 :01; Status DC Insulin Human Lispro (HumaLOG INSULIN) See Protocol Table Q6H SC Last administered on 08/28/17 12:15; Start 08/27/17 at 18:00; Stop 08/28/17 at 12 :01; Status DC Insulin Human Lispro (HumaLOG INSULIN) See Protocol Table Q6H SC Last administered on 08/29/17 12:33; Start 08/28/17 at 18:00; Stop 08/29/17 at 15 :00; Status DC Insulin Human Lispro (HumaLOG INSULIN) See Protocol Table Q6H SC Last administered on 08/30/17 13:25; Start 08/29/17 at 18:00; Stop 08/30/17 at 12 :01; Status DC Insulin Human Lispro (HumaLOG INSULIN) See Protocol Table Q6H SC Last administered on 08/31/17 11:43; Start 08/30/17 at 18:00; Stop 08/31/17 at 15 :00; Status DC Isosorbide Mononitrate (Imdur) 30 mg DAILY PO Last administered on 09/13/17 08 :45; Start 08/19/17 at 09:00; Stop 09/18/17 at 08:59 Lactated Ringer's 1,000 ml @ 100 mls/hr Q10H IV ; Start 08/23/17 at 18:30; Stop 08/23/17 at 19:30; Status DC Lactated Ringer's 1,000 ml @ 100 mls/hr Q10H IV Last administered on 08:54; Start 08/15/17 at 17:00; Stop 08/20/17 at 11:37; Status DC Lactated Ringer's 1,000 ml @ 100 mls/hr Q10H IV ; Start 08/16/17 at 00:00; Stop 08/16/17 at 01:15; Status DC Lactated Ringer's 1,000 ml @ 200 mls/hr Q5H IV Last administered on 04:00; Start 08/22/17 at 18:00; Stop 08/24/17 at 07:46; Status DC Levofloxacin (Levaquin) 500 mg DAILY@06 PO Last administered on 09/13/17 06:05 ; Start 09/12/17 at 06:00; Stop 09/19/17 at 05:59 Lidocaine HCl (LIDOCAINE 1% MDV 50ml) 10 ml ASDIRECTED SC Last administered on 09/12/17 14:30; Start 09/12/17 at 14:30; Stop 09/12/17 at 14:31; Status DC Magnesium Hydroxide (Milk Of Magnesia) 30 ml DAILYPRN PRN PO CONSTIPATION; Start 08/15/17 at 23:15; Stop 08/25/17 at 07:59; Status DC Metoprolol Tartrate (Lopressor) 25 mg BID PO Last administered on 09/03/17 21 :04; Start 08/15/17 at 21:00; Stop 09/04/17 at 07:48; Status DC Metoprolol Tartrate (Lopressor) 25 mg Q8H PO Last administered on 09/13/17 21: 42; Start 09/04/17 at 06:00; Stop 10/04/17 at 05:59 Midazolam HCl (Versed) 2 mg Q15MP PRN IV AGITATION Last administered on 05:04; Start 08/16/17 at 00:00; Stop 08/16/17 at 10:41; Status DC Miscellaneous (Unresolved Clarification Entry) SEE LABEL COMMENTS UNRESOLVED XX ; Start 08/21/17 at 00:01; Stop 08/21/17 at 19:37; Status DC Morphine Sulfate (Morphine Sulfate In 0.9%Nacl Iv Bag) Concentration 1 mg/ml ASDIRECTED PRN IV SEE LABEL COMMENTS Last administered on 08/31/17 10:45; Start 08/23/17 at 18:00; Stop 09/01/17 at 09:20; Status DC Morphine Sulfate (Morphine Sulfate In 0.9%Nacl Iv Bag) Concentration 1 mg/ml ASDIRECTED PRN IV SEE LABEL COMMENTS Last administered on 08/18/17 18:52; Start 08/17/17 at 08:00; Stop 08/20/17 at 11:37; Status DC Morphine Sulfate (Morphine Sulfate Inj) 2 mg Q2HP PRN IV BREAKTHROUGH PAIN Last administered on 09/12/17 12:05; Start 09/01/17 at 09:30; Stop 09/20/17 at 09:29 Morphine Sulfate (Morphine Sulfate Inj) 2 mg Q2HP PRN IV PAIN Last administered on 08/17/17 06:42; Start 08/16/17 at 00:00; Stop 08/17/17 at 07:53 ; Status DC Morphine Sulfate (Morphine Sulfate Inj) 4 mg Q1H PRN IV SEVERE PAIN (PS 8-10); Start 08/15/17 at 23:15; Stop 08/15/17 at 23:53; Status DC Morphine Sulfate (Morphine Sulfate Inj) 4 mg Q4HP PRN IV SEVERE PAIN (PS 8-10) Last administered on 08/23/17 09:18; Start 08/20/17 at 11:45; Stop 08/23/17 at 17:57; Status DC Multivitamins (Theragram-M) 1 tab DAILY PO Last administered on 08/24/17 08: 29; Start 08/19/17 at 09:00; Stop 08/25/17 at 07:59; Status DC Multivitamins 10 ml/Chromium/ Copper/Manganese/ Seleni/Zn 1 ml/ Amino Ac/ Electrol/ Dextrose/Calcium 2,011 ml @ 50 mls/hr ONCE@1800 IV Last administered on 08/27/17 17:39; Start 08/27/17 at 18:00; Stop 08/28/17 at 17 :59; Status DC Multivitamins 10 ml/Chromium/ Copper/Manganese/ Seleni/Zn 1 ml/ Amino Ac/ Electrol/ Dextrose/Calcium 2,011 ml @ 50 mls/hr ONCE@1800 IV Last administered on 08/29/17 17:42; Start 08/29/17 at 18:00; Stop 08/30/17 at 17 :59; Status DC Multivitamins 10 ml/Chromium/ Copper/Manganese/ Seleni/Zn 1 ml/ Amino Ac/ Electrol/ Dextrose/Calcium 2,011 ml @ 85 mls/hr ONCE@1800 IV Last administered on 08/24/17 17:49; Start 08/24/17 at 18:00; Stop 08/25/17 at 17 :59; Status DC Nalbuphine HCl (Nubain) 2.5 mg Q6HP PRN IV PRURITIS; Start 08/23/17 at 18:00; Stop 09/01/17 at 09:20; Status DC Nalbuphine HCl (Nubain) 2.5 mg Q6HP PRN IV PRURITIS; Start 08/17/17 at 08:00; Stop 08/20/17 at 11:37; Status DC Naloxone HCl (Narcan) 0.1 mg Q5MP PRN IV SEE LABEL COMMENTS; Start 08/23/17 at 18:00; Stop 09/01/17 at 09:20; Status DC Naloxone HCl (Narcan) 0.1 mg Q5MP PRN IV SEE LABEL COMMENTS; Start 08/17/17 at 08:00; Stop 08/20/17 at 11:37; Status DC Nitroglycerin (Nitrostat (1/ 150)) 0.4 mg Q5MP PRN SL CHEST PAIN; Start at 09:30; Stop 09/18/17 at 09:29 Non-Formulary Medication (Epidural/PARTS CHASER [place]) USE THIS ENTRY TO VEND ... Q1M PRN XX SEE LABEL COMMENTS; Start 08/23/17 at 18:00; Stop 09/01/17 at 09:20; Status DC Non-Formulary Medication (Epidural/PARTS CHASER [place]) USE THIS ENTRY TO VEND ... Q1M PRN XX SEE LABEL COMMENTS; Start 08/17/17 at 08:00; Stop 08/20/17 at 11:37; Status DC Octreotide Acetate (SandoSTATIN) 100 mcg Q8H SC Last administered on 05:03; Start 08/20/17 at 14:00; Stop 08/24/17 at 07:37; Status DC Octreotide Acetate (SandoSTATIN) 200 mcg Q8H SC Last administered on 05:23; Start 08/24/17 at 14:00; Stop 08/29/17 at 09:05; Status DC Octreotide Acetate (SandoSTATIN) 200 mcg Q8H SC Last administered on 09/13/17 21:41; Start 09/07/17 at 14:00; Stop 10/07/17 at 13:59 Ondansetron HCl (ZOFRAN INJection) 4 mg Q4HP PRN IV NAUSEA OR VOMITING; Start 08/23/17 at 18:30; Stop 08/23/17 at 19:30; Status DC Ondansetron HCl (ZOFRAN INJection) 4 mg Q4HP PRN IV NAUSEA OR VOMITING; Start 08/16/17 at 00:00; Stop 08/16/17 at 01:15; Status DC Ondansetron HCl (ZOFRAN INJection) 4 mg Q6HP PRN IV NAUSEA; Start 08/23/17 at 18:00; Stop 09/01/17 at 09:20; Status DC Ondansetron HCl (ZOFRAN INJection) 4 mg Q6HP PRN IV NAUSEA OR VOMITING; Start 08/15/17 at 23:15; Stop 08/27/17 at 09:26; Status DC Ondansetron HCl (ZOFRAN INJection) 4 mg Q6HP PRN IV NAUSEA; Start 08/17/17 at 08:00; Stop 08/20/17 at 11:37; Status DC Pantoprazole Sodium (Protonix) 40 mg BID IV Last administered on 09/13/17 21: 41; Start 08/23/17 at 21:00; Stop 09/22/17 at 20:59 Pantoprazole Sodium (Protonix) 40 mg BID IV Last administered on 08/23/17 09: 34; Start 08/16/17 at 09:00; Stop 08/23/17 at 17:56; Status DC Phenol (Chloraseptic (Cepacol)) 1 spray Q2HP PRN MT SORE THROAT; Start at 15:45; Stop 09/30/17 at 15:44 Pneumococcal Polyvalent Vaccine (Prevnar 13) 0.5 ml ASDIRECTED IM Last administered on 08/19/17 10:16; Start 08/16/17 at 11:15; Stop 08/19/17 at 14:14 ; Status DC Propofol 1000 mg/ IV Miscellaneous Supplies 100 ml @ 6.68 mls/hr [id number] IV Last administered on 08/16/17 05:22; Start 08/15/17 at 23:47; Stop 08/16/17 at 10:41; Status DC Sodium Chloride 1,000 ml @ 15 mls/hr Q24H IV ; Start 08/23/17 at 17:53; Stop 08/24/17 at 07:51; Status DC Sodium Chloride 1,000 ml @ 15 mls/hr Q24H IV ; Start 08/17/17 at 07:49; Stop 08/17/17 at 07:55; Status DC Sodium Chloride 1,000 ml @ 30 mls/hr Q24H IV Last administered on 08/31/17 17:17; Start 08/24/17 at 18:00; Stop 09/03/17 at 01:57; Status DC Sodium Chloride 1,000 ml @ 200 mls/hr Q5H IV Last administered on 08/24/17 14:00; Start 08/24/17 at 07:45; Stop 08/24/17 at 17:21; Status DC Sodium Chloride (Saline Lock Flush) 10 ml ASDIRECTED PRN IV SEE LABEL COMMENTS Last administered on 09/12/17 17:59; Start 08/24/17 at 12:15; Stop 09/23/17 at 12:14 Sodium Chloride (Saline Lock Flush) 10 ml ASDIRECTED PRN IV SEE LABEL COMMENTS ; Start 08/20/17 at 20:45; Stop 08/21/17 at 14:31; Status DC Sodium Chloride (Saline Lock Flush) 10 ml PICC IV Last administered on 17:47; Start 08/24/17 at 18:00; Stop 09/23/17 at 17:59 Sodium Chloride (Saline Lock Flush) 10 ml SLF IV Last administered on 05:13; Start 08/20/17 at 22:00; Stop 08/21/17 at 14:31; Status DC Sucralfate (Carafate Suspension) 1 gm Q6H GT Last administered on 09/13/17 17: 47; Start 09/09/17 at 12:00; Stop 10/09/17 at 11:59 Vitamin D (Vitamin D) 1,000 units DAILY PO Last administered on 08/23/17 09: 36; Start 08/19/17 at 09:00; Stop 08/23/17 at 20:45; Status DC Zolpidem Tartrate (Ambien) 2.5 mg QHS PRN PO INSOMNIA Last administered on 00:09; Start 09/01/17 at 18:15; Stop 09/20/17 at 18:14 Allergies Coded Allergies: Penicillins (Verified Adverse Reaction, Intermediate, STOMACH ULCERS MANY YEARS AGO, 09/03/17) Objective Physical Examination Examination GENERAL APPEARANCE:Patient seen, laying in bed, awake, alert, and oriented. Comfortable, in no acute distress. SKIN: Warm and moist. HEENT: Normocephalic, atraumatic. [place] palpebral conjunctiva, anicteric sclerae. Lips and mucosa appear moist. NECK: Supple, no thyromegaly. No obvious jugular venous distention. LUNGS: Clear to auscultation bilaterally. No wheezing appreciated. HEART: No chest wall abnormalities. Regular rate and rhythm with no murmurs appreciated. ABDOMEN: Abdomen is round, soft, nondistended, midline incision is healed except for small portion on the top which is being packed . YORDY drain site and some slight drainage, slight irritation at the exit site. Gastrostomy tube currently connected to a bag. Jejunostomy tube is clogged EXTREMITIES: Extremities have no deformities. No edema identified. Vital Signs Vital Signs Date Time Temp Pulse Resp B/P (MAP) Pulse Ox O2 Delivery O2 Flow Rate FiO2 09/13/17 21:42 86 117/63 09/13/17 14:00 98.1 14 96 09/13/17 06:00 Room Air I&Os I&O- Last 24 Hours up to 6 AM 09/14/17 06:00 Intake Total 1160 ml Output Total 1800 ml Balance -640 ml Laboratory Data Labs 24H Laboratory Tests 2 09/13/17 05:36: Nucleated Red Blood Cells % (auto) 0.0, Anion Gap 5L, Glomerular Filtration Rate > 60.0, Blood Urea Nitrogen 22H, Creatinine 0.91, Sodium Level 138, Potassium Level 4.0, Chloride Level 99, Carbon Dioxide Level 34H, Calcium Level 8.4L CBC/BMP Laboratory Tests 09/13/17 05:36 Red Blood Count 3.25 L, Mean Corpuscular Volume 94.8, Mean Corpuscular Hemoglobin 31.4, Mean Corpuscular Hemoglobin Concent 33.1, Red Cell Distribution Width 15.0 H, Calcium Level 8.4 L Impression Currently stable, continued duodenal fistula He is able to unclog the jejunostomy tube. We will try bolus feedings with 2 cans 4 times a day of Jevity We will try the gastrostomy tube to a bag Monitor the YORDY drain. The drain leaks out every time the tube gets clogged so once I instructed the nurse to strip the YORDY drain every shift. Eventual plan is to hopefully find a short-term facility that can take care of his drains while awaiting resolution of the duodenal fistula which would take several months. Plan / VTE VTE Prophylaxis Ordered?: Yes Plan / Urinary Catheter Urinary Catheter: D/C [place] Reason for insertion/continuin: Critical Pt monitoring ORA SIMPSON MD Sep 13, 2017 22:49
[2017-09-14] MEDS: SUCRALFATE SUSP 1GM/10ML UD GT SCH ×5 (00:04→22:50)
[2017-09-14] MEDS: MORPHINE 2 MG/ML 1ML SYRINGE IV PRN ×2 (04:22→10:57)
[2017-09-14] MEDS: OCTREOTIDE ACETATE 100 MCG/ML VIAL (J2354) SC SCH ×3 (05:32→22:00)
[2017-09-14] MEDS: LevoFLOXacin 500 MG TABLET PO SCH (05:32)
[2017-09-14] MEDS: METOPROLOL TART 25 MG TABLET PO SCH ×3 (05:32→22:51)
[2017-09-14] MEDS: SODIUM CHLORIDE 0.9% INJ 10 ML SYR IV SCH ×2 (05:32→18:39)
[2017-09-14 06:00] VITALS: BP 111/61
[2017-09-14 06:09] LABS: MEAN CORPUSCULAR HEMOGLOBIN 31.9 pg (27.0-33.0); MEAN CORPUSCULAR HGB CONC 33.1 g/dl (32.0-36.5); MEAN CORPUSCULAR VOLUME 96.3 fl (80.0-96.0); PLATELET COUNT, AUTOMATED 259 10^3/uL (150-450); RED CELL DISTRIBUTION WIDTH 14.8 % (11.5-14.5); WHITE BLOOD COUNT 9.9 10^3/uL (4.0-10.0)
[2017-09-14 06:34] LABS: ANION GAP 7 MEQ/L (8-16); BLOOD UREA NITROGEN 26 MG/DL (7-18); CALCIUM LEVEL 8.6 MG/DL (8.8-10.2); CARBON DIOXIDE LEVEL 33 MEQ/L (21-32); CHLORIDE LEVEL 99 MEQ/L (98-107); CREATININE FOR GFR 0.98 MG/DL (0.70-1.30); GLOMERULAR FILTRATION RATE > 60.0 (>49); GLUCOSE, FASTING 106 MG/DL (80-110); POTASSIUM SERUM 3.9 MEQ/L (3.5-5.1); SODIUM LEVEL 139 MEQ/L (136-145)
[2017-09-14] MEDS: IPRATROPIUM 0.5MG/ALBUTEROL 2.5MG INH SOL UD 3ML (DUONEB)(J7620) NEB SCH ×3 (07:15→15:11)
[2017-09-14] MEDS: ISOSORBIDE MON. (IMDUR) 30 MG XR TAB PO SCH (08:31)
[2017-09-14] MEDS: DIAPER RELIEF PASTE (DESITIN) 60GM TOP SCH ×2 (08:32→22:51)
[2017-09-14] MEDS: ASPIRIN 81 MG ENTERIC TAB PO SCH (08:32)
[2017-09-14] MEDS: PANTOPRAZOLE 40MG INJ (PROTONIX) (C9113) IV SCH ×2 (08:32→22:51)
[2017-09-14] MEDS ORDERED: GASTROGRAFIN SOLUTION 30ML PO ONE (09:00)
[2017-09-14] MEDS ORDERED: GASTROGRAFIN SOLUTION 30ML (Q9963) PO ONE (09:30)
[2017-09-14] MEDS: NITROGLYCERIN 0.4 MG SUBL TABLET SL PRN ×3 (10:25→10:43)
[2017-09-14 10:30] VITALS: BP 125/72
[2017-09-14] MEDS ORDERED: ISOVUE-370 76% 100ML VIAL (Q9967) As Ordered ONE (12:42)
[2017-09-14 14:00] VITALS: BP 106/60
--- NOTE | 2017-09-14 15:20 | REP ---
CT of the abdomen and pelvis without IV and oral contrast: Comparison is 2016. The visualized lower lung munguia demonstrate focal areas of atelectasis, minimally improved. There is a gastrostomy. There is a jejunal tube. There are surgical drainage tubes in the right upper quadrant. The mesenteric phlegmon in the right upper quadrant adjacent to the drainage tubes has decreased. There are no focal fluid collections to suggest abscess. There is no pneumoperitoneum. There is no ascites. There is no bowel distension or obstruction. There is a cyst in the left lobe of the liver, unchanged. The hepatic parenchyma is otherwise unremarkable and unchanged. The gallbladder, pancreas, spleen and adrenals are unremarkable. There is a nonobstructive calculus in each kidney. This is unchanged. The kidneys are otherwise unremarkable. There is no bowel distension or obstruction. The abdominal aorta is unremarkable. Pelvis: There is no ascites. The bladder is unremarkable. There is no adenopathy. The pelvic bowel loops are unremarkable. There is a fat-containing umbilical hernia. This is unchanged. I suspect there is a small focal mesh along the anterior peritoneum just above the umbilicus. This is unchanged. Impression: The phlegmon in the the mesenteric phlegmon in the right upper quadrant has slightly decreased. Gastrostomy tube, jejunal tube. And surgical drainage tubes are again identified. There are no focal fluid collections to suggest abscess. No ascites. There are nonobstructive bilateral renal calculi, unchanged. Probable anterior abdominal peritoneal mesh, unchanged. Signed by Collin Weinstein MD 09/14/2017 03:12 P
--- NOTE | 2017-09-14 15:28 | REP ---
CT of the chest, CT pulmonary angiography: Comparison is 08/15/2017. There are no emboli in the pulmonary trunk or central pulmonary arteries. There are no emboli in the pulmonary lobe or segment branches. The previous bilateral pneumothoraces have resolved. There are no pleural effusions. There are focal zones of discoid atelectasis in the lingula, middle lobe and bilateral lower lobes. There are scattered bulla throughout the lung munguia bilaterally. Thoracic aorta is unremarkable. Cardiac size is normal. There is a cyst in the left lobe of the liver, unchanged. Impression: There are no pulmonary emboli. There are focal zones of atelectasis in in the lingula, middle lobe and both lower lobes. No pleural effusion. Scattered bulla throughout the lung munguia. The previous pneumothoraces have resolved. Signed by Collin Weinstein MD 09/14/2017 03:19 P
--- NOTE | 2017-09-14 16:58 | ECGEPIP ---
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
[2017-09-14 22:00] VITALS: BP 119/83
[2017-09-14] MEDS: ENOXAPARIN 40 MG/0.4 ML SYRINGE (J1650) SC SCH (22:50)
[2017-09-14] MEDS: ATORVASTATIN 20 MG TAB PO SCH (22:50)
[2017-09-15] MEDS: LevoFLOXacin 500 MG TABLET PO SCH (05:52)
[2017-09-15] MEDS: METOPROLOL TART 25 MG TABLET PO SCH ×3 (05:53→21:52)
[2017-09-15] MEDS: SUCRALFATE SUSP 1GM/10ML UD GT SCH ×3 (05:53→19:02)
[2017-09-15] MEDS: SODIUM CHLORIDE 0.9% INJ 10 ML SYR IV SCH ×2 (05:54→19:02)
[2017-09-15] MEDS: OCTREOTIDE ACETATE 100 MCG/ML VIAL (J2354) SC SCH ×4 (05:54→22:00)
[2017-09-15] MEDS: MORPHINE 2 MG/ML 1ML SYRINGE IV PRN ×2 (05:55→13:28)
[2017-09-15 06:00] VITALS: BP 122/62
[2017-09-15 06:50] LABS: MEAN CORPUSCULAR HEMOGLOBIN 31.4 pg (27.0-33.0); MEAN CORPUSCULAR HGB CONC 32.9 g/dl (32.0-36.5); MEAN CORPUSCULAR VOLUME 95.4 fl (80.0-96.0); PLATELET COUNT, AUTOMATED 271 10^3/uL (150-450); WHITE BLOOD COUNT 10.8 10^3/uL (4.0-10.0)
[2017-09-15 07:16] LABS: ANION GAP 7 MEQ/L (8-16); BLOOD UREA NITROGEN 23 MG/DL (7-18); CARBON DIOXIDE LEVEL 33 MEQ/L (21-32); CHLORIDE LEVEL 99 MEQ/L (98-107); CREATININE FOR GFR 1.05 MG/DL (0.70-1.30); GLOMERULAR FILTRATION RATE > 60.0 (>49); GLUCOSE, FASTING 101 MG/DL (80-110); POTASSIUM SERUM 3.7 MEQ/L (3.5-5.1); SODIUM LEVEL 139 MEQ/L (136-145)
[2017-09-15 07:17] LABS: CALCIUM LEVEL 8.4 MG/DL (8.8-10.2)
[2017-09-15] MEDS: IPRATROPIUM 0.5MG/ALBUTEROL 2.5MG INH SOL UD 3ML (DUONEB)(J7620) NEB SCH ×4 (07:38→19:48)
[2017-09-15] MEDS: PANTOPRAZOLE 40MG INJ (PROTONIX) (C9113) IV SCH ×2 (09:52→21:55)
[2017-09-15] MEDS: ASPIRIN 81 MG ENTERIC TAB PO SCH (09:52)
[2017-09-15] MEDS: ISOSORBIDE MON. (IMDUR) 30 MG XR TAB PO SCH (09:52)
[2017-09-15] MEDS: DIAPER RELIEF PASTE (DESITIN) 60GM TOP SCH ×2 (09:52→21:55)
[2017-09-15 14:00] VITALS: BP 115/67
--- NOTE | 2017-09-15 19:58 | IPNPDOC ---
Subjective General Date/Time Seen The patient was seen on 09/15/17 at 19:52. Subject Chief Complaint/History The patient is a 66-year-old male admitted with a reason for visit of Perforated Duodenal Ulcer. Doing well. No further chest pains. CT scan of chest, abdomen, pelvis reviewed. Current Medications Current Medications Current Medications Acetaminophen (Tylenol Tab) 650 mg Q4HP PRN PO MILD PAIN or TEMP > 101; Start 08/15/17 at 23:15; Stop 10/13/17 at 23:14 Acetaminophen/ Hydrocodone Bitart ([place], Anexsia 5/325) 1 tab Q4HP PRN PO MILD /MODERATE PAIN (PS 1-7); Start 08/20/17 at 11:45; Stop 08/23/17 at 20:45; Status DC Acetaminophen/ Hydrocodone Bitart ([place], Anexsia 5/325) 2 tab Q4HP PRN PO SEVERE PAIN (PS 8-10) Last administered on 08/23/17 05:56; Start 08/20/17 at 11:45; Stop 08/23/17 at 20:45; Status DC Acetaminophen/ Hydrocodone Bitart ([place], Anexsia 5/325) 2 tab Q6HP PRN PO SEVERE PAIN (PS 8-10) Last administered on 09/12/17 14:14; Start 09/01/17 at 09:30; Stop 09/20/17 at 09:29 Albuterol Sulfate (Proventil Neb) 2.5 mg Q2HP PRN NEB SHORTNESS OF BREATH; Start 08/16/17 at 00:00; Stop 08/27/17 at 09:26; Status DC Albuterol/ Ipratropium (Duoneb (Ipr 0.5mg/Alb 2.5mg)) 3 ml RQ4H NEB Last administered on 08/16/17 09:25; Start 08/16/17 at 00:00; Stop 08/16/17 at 10:43 ; Status DC Albuterol/ Ipratropium (Duoneb (Ipr 0.5mg/Alb 2.5mg)) 3 ml RQID NEB Last administered on 09/15/17 19:48; Start 08/16/17 at 12:00; Stop 10/14/17 at 11:59 Amino Ac/Electrol/ Dextrose/Calcium 2,000 ml @ 50 mls/hr ONCE@1800 IV Last administered on 08/28/17 18:06; Start 08/28/17 at 18:00; Stop 08/29/17 at 17 :59; Status DC Amino Ac/Electrol/ Dextrose/Calcium 2,000 ml @ 50 mls/hr ONCE@1800 IV Last administered on 08/30/17 18:35; Start 08/30/17 at 18:00; Stop 08/31/17 at 17 :59; Status DC Amino Ac/Electrol/ Dextrose/Calcium 2,000 ml @ 75 mls/hr ONCE@1800 IV Last administered on 08/25/17 17:15; Start 08/25/17 at 18:00; Stop 08/26/17 at 17 :59; Status DC Amino Ac/Electrol/ Dextrose/Calcium 2,000 ml @ 75 mls/hr ONCE@1800 IV Last administered on 08/26/17 17:38; Start 08/26/17 at 18:00; Stop 08/27/17 at 17 :59; Status DC Aspirin (Ecotrin) 81 mg DAILY PO Last administered on 09/15/17 09:52; Start 09/06/17 at 09:00; Stop 10/06/17 at 08:59 Atorvastatin Calcium (Lipitor) 20 mg QHS PO Last administered on 09/14/17 22: 50; Start 09/01/17 at 21:00; Stop 10/01/17 at 20:59 Atorvastatin Calcium (Lipitor) 40 mg QHS PO Last administered on 08/24/17 21: 19; Start 08/19/17 at 21:00; Stop 08/25/17 at 07:59; Status DC Chlorhexidine Gluconate (Chlorhexidine Gluconate) SWAB/BRUSH ORAL CAVITY BID MT ; Start 08/16/17 at 09:00; Stop 08/16/17 at 10:41; Status DC Cod Liver Oil/ Zinc Oxide (Desitin) APPLY TO right side abd wall BID TOP Last administered on 09/15/17 09:52; Start 09/08/17 at 09:00; Stop 10/08/17 at 08: 59 Cyclobenzaprine HCl (Flexeril) 10 mg DAILY PRN PO MUSCLE SPASMS; Start at 09:30; Stop 08/27/17 at 09:26; Status DC Diphenhydramine HCl (Benadryl) 12.5 mg Q4HP PRN IV ITCHING; Start 08/23/17 at 18:00; Stop 09/01/17 at 09:20; Status DC Diphenhydramine HCl (Benadryl) 12.5 mg Q4HP PRN IV ITCHING; Start 08/17/17 at 08:00; Stop 08/20/17 at 11:37; Status DC Enoxaparin Sodium (Lovenox) 40 mg DAILY SC Last administered on 08/20/17 08:54 ; Start 08/16/17 at 09:00; Stop 08/21/17 at 19:37; Status DC Enoxaparin Sodium (Lovenox) 40 mg DAILY@2100 SC Last administered on 09/14/17 22:50; Start 08/21/17 at 21:00; Stop 09/20/17 at 20:59 Ertapenem 1 gm/ Sodium Chloride 50 ml @ 100 mls/hr Q24H IV Last administered on 09/11/17 17:26; Start 09/03/17 at 17:00; Stop 09/12/17 at 08:45; Status DC Ertapenem 1 gm/ Sodium Chloride 50 ml @ 100 mls/hr Q24H IV Last administered on 08/29/17 17:42; Start 08/16/17 at 17:00; Stop 08/30/17 at 14:33; Status DC Fat Emulsion Intravenous 500 ml @ 20 mls/hr ONCE@1800 IV Last administered on 08/24/17 17:49; Start 08/24/17 at 18:00; Stop 08/25/17 at 17:59; Status DC Fat Emulsion Intravenous 500 ml @ 20 mls/hr ONCE@1800 IV Last administered on 08/25/17 17:14; Start 08/25/17 at 18:00; Stop 08/26/17 at 17:59; Status DC Fat Emulsion Intravenous 500 ml @ 20 mls/hr ONCE@1800 IV Last administered on 08/26/17 17:37; Start 08/26/17 at 18:00; Stop 08/27/17 at 17:59; Status DC Fat Emulsion Intravenous 500 ml @ 20 mls/hr ONCE@1800 IV Last administered on 08/27/17 17:39; Start 08/27/17 at 18:00; Stop 08/28/17 at 17:59; Status DC Fat Emulsion Intravenous 500 ml @ 20 mls/hr ONCE@1800 IV Last administered on 08/28/17 18:05; Start 08/28/17 at 18:00; Stop 08/29/17 at 17:59; Status DC Fat Emulsion Intravenous 500 ml @ 20 mls/hr ONCE@1800 IV Last administered on 08/29/17 17:42; Start 08/29/17 at 18:00; Stop 08/30/17 at 17:59; Status DC Fat Emulsion Intravenous 500 ml @ 20 mls/hr ONCE@1800 IV Last administered on 08/30/17 18:35; Start 08/30/17 at 18:00; Stop 08/31/17 at 17:59; Status DC Fentanyl Citrate (Sublimaze) 25 mcg Q5MP PRN IV MODERATE PAIN (PS 4-7) Last administered on 08/23/17 18:46; Start 08/23/17 at 18:30; Stop 08/23/17 at 19 :30; Status DC Fentanyl Citrate (Sublimaze) 25 mcg Q5MP PRN IV MODERATE PAIN (PS 4-7); Start 08/16/17 at 00:00; Stop 08/16/17 at 01:15; Status DC Fluconazole 100 mg/IV Miscellaneous Supplies 50 ml @ 50 mls/hr Q24H IV Last administered on 09/11/17 18:00; Start 08/24/17 at 18:00; Stop 09/12/17 at 08: 45; Status DC Heparin Sodium (Heparin (Flush)) 200 units ASDIRECTED PRN IV SEE LABEL COMMENTS Last administered on 09/12/17 17:59; Start 08/24/17 at 12:15; Stop 09/23/17 at 12:14 Heparin Sodium (Heparin (Flush)) 200 units PICC IV Last administered on 19:02; Start 08/24/17 at 18:00; Stop 09/23/17 at 17:59 Heparin Sodium (Heparin Lock Flush 10units/ml) 10 units ASDIRECTED PRN IV SEE LABEL COMMENTS; Start 08/20/17 at 20:45; Stop 08/21/17 at 14:31; Status DC Heparin Sodium (Heparin Lock Flush 10units/ml) 10 units HLF IV Last administered on 08/21/17 05:13; Start 08/20/17 at 22:00; Stop 08/21/17 at 14: 31; Status DC Home Med (Med Rec Complete!) ASDIRECTED XX ; Start 08/15/17 at 16:15; Stop 08/15/17 at 16:15; Status DC Influenza Virus Vaccine (Fluzone High Dose) 0.5 ml ASDIRECTED IM Last administered on 08/19/17 10:15; Start 08/16/17 at 11:15; Stop 08/19/17 at 14:14 ; Status DC Insulin Human Lispro (HumaLOG INSULIN) See Protocol Table Q6H SC Last administered on 08/25/17 11:50; Start 08/24/17 at 18:00; Stop 08/25/17 at 12 :01; Status DC Insulin Human Lispro (HumaLOG INSULIN) See Protocol Table Q6H SC Last administered on 08/26/17 11:40; Start 08/25/17 at 18:00; Stop 08/26/17 at 12 :01; Status DC Insulin Human Lispro (HumaLOG INSULIN) See Protocol Table Q6H SC Last administered on 08/27/17 12:09; Start 08/26/17 at 18:00; Stop 08/27/17 at 12 :01; Status DC Insulin Human Lispro (HumaLOG INSULIN) See Protocol Table Q6H SC Last administered on 08/28/17 12:15; Start 08/27/17 at 18:00; Stop 08/28/17 at 12 :01; Status DC Insulin Human Lispro (HumaLOG INSULIN) See Protocol Table Q6H SC Last administered on 08/29/17 12:33; Start 08/28/17 at 18:00; Stop 08/29/17 at 15 :00; Status DC Insulin Human Lispro (HumaLOG INSULIN) See Protocol Table Q6H SC Last administered on 08/30/17 13:25; Start 08/29/17 at 18:00; Stop 08/30/17 at 12 :01; Status DC Insulin Human Lispro (HumaLOG INSULIN) See Protocol Table Q6H SC Last administered on 08/31/17 11:43; Start 08/30/17 at 18:00; Stop 08/31/17 at 15 :00; Status DC Isosorbide Mononitrate (Imdur) 30 mg DAILY PO Last administered on 09/15/17 09 :52; Start 08/19/17 at 09:00; Stop 09/18/17 at 08:59 Lactated Ringer's 1,000 ml @ 100 mls/hr Q10H IV ; Start 08/23/17 at 18:30; Stop 08/23/17 at 19:30; Status DC Lactated Ringer's 1,000 ml @ 100 mls/hr Q10H IV Last administered on 08:54; Start 08/15/17 at 17:00; Stop 08/20/17 at 11:37; Status DC Lactated Ringer's 1,000 ml @ 100 mls/hr Q10H IV ; Start 08/16/17 at 00:00; Stop 08/16/17 at 01:15; Status DC Lactated Ringer's 1,000 ml @ 200 mls/hr Q5H IV Last administered on 04:00; Start 08/22/17 at 18:00; Stop 08/24/17 at 07:46; Status DC Levofloxacin (Levaquin) 500 mg DAILY@06 PO Last administered on 09/15/17 05:52 ; Start 09/12/17 at 06:00; Stop 09/19/17 at 05:59 Lidocaine HCl (LIDOCAINE 1% MDV 50ml) 10 ml ASDIRECTED SC Last administered on 09/12/17 14:30; Start 09/12/17 at 14:30; Stop 09/12/17 at 14:31; Status DC Magnesium Hydroxide (Milk Of Magnesia) 30 ml DAILYPRN PRN PO CONSTIPATION; Start 08/15/17 at 23:15; Stop 08/25/17 at 07:59; Status DC Metoprolol Tartrate (Lopressor) 25 mg BID PO Last administered on 09/03/17 21 :04; Start 08/15/17 at 21:00; Stop 09/04/17 at 07:48; Status DC Metoprolol Tartrate (Lopressor) 25 mg Q8H PO Last administered on 09/15/17 05: 53; Start 09/04/17 at 06:00; Stop 10/04/17 at 05:59 Midazolam HCl (Versed) 2 mg Q15MP PRN IV AGITATION Last administered on 05:04; Start 08/16/17 at 00:00; Stop 08/16/17 at 10:41; Status DC Miscellaneous (Unresolved Clarification Entry) SEE LABEL COMMENTS UNRESOLVED XX ; Start 08/21/17 at 00:01; Stop 08/21/17 at 19:37; Status DC Morphine Sulfate (Morphine Sulfate In 0.9%Nacl Iv Bag) Concentration 1 mg/ml ASDIRECTED PRN IV SEE LABEL COMMENTS Last administered on 08/31/17 10:45; Start 08/23/17 at 18:00; Stop 09/01/17 at 09:20; Status DC Morphine Sulfate (Morphine Sulfate In 0.9%Nacl Iv Bag) Concentration 1 mg/ml ASDIRECTED PRN IV SEE LABEL COMMENTS Last administered on 08/18/17 18:52; Start 08/17/17 at 08:00; Stop 08/20/17 at 11:37; Status DC Morphine Sulfate (Morphine Sulfate Inj) 2 mg Q2HP PRN IV BREAKTHROUGH PAIN Last administered on 09/15/17 13:28; Start 09/01/17 at 09:30; Stop 09/20/17 at 09:29 Morphine Sulfate (Morphine Sulfate Inj) 2 mg Q2HP PRN IV PAIN Last administered on 08/17/17 06:42; Start 08/16/17 at 00:00; Stop 08/17/17 at 07:53 ; Status DC Morphine Sulfate (Morphine Sulfate Inj) 4 mg Q1H PRN IV SEVERE PAIN (PS 8-10); Start 08/15/17 at 23:15; Stop 08/15/17 at 23:53; Status DC Morphine Sulfate (Morphine Sulfate Inj) 4 mg Q4HP PRN IV SEVERE PAIN (PS 8-10) Last administered on 08/23/17 09:18; Start 08/20/17 at 11:45; Stop 08/23/17 at 17:57; Status DC Multivitamins (Theragram-M) 1 tab DAILY PO Last administered on 08/24/17 08: 29; Start 08/19/17 at 09:00; Stop 08/25/17 at 07:59; Status DC Multivitamins 10 ml/Chromium/ Copper/Manganese/ Seleni/Zn 1 ml/ Amino Ac/ Electrol/ Dextrose/Calcium 2,011 ml @ 50 mls/hr ONCE@1800 IV Last administered on 08/27/17 17:39; Start 08/27/17 at 18:00; Stop 08/28/17 at 17 :59; Status DC Multivitamins 10 ml/Chromium/ Copper/Manganese/ Seleni/Zn 1 ml/ Amino Ac/ Electrol/ Dextrose/Calcium 2,011 ml @ 50 mls/hr ONCE@1800 IV Last administered on 08/29/17 17:42; Start 08/29/17 at 18:00; Stop 08/30/17 at 17 :59; Status DC Multivitamins 10 ml/Chromium/ Copper/Manganese/ Seleni/Zn 1 ml/ Amino Ac/ Electrol/ Dextrose/Calcium 2,011 ml @ 85 mls/hr ONCE@1800 IV Last administered on 08/24/17 17:49; Start 08/24/17 at 18:00; Stop 08/25/17 at 17 :59; Status DC Nalbuphine HCl (Nubain) 2.5 mg Q6HP PRN IV PRURITIS; Start 08/23/17 at 18:00; Stop 09/01/17 at 09:20; Status DC Nalbuphine HCl (Nubain) 2.5 mg Q6HP PRN IV PRURITIS; Start 08/17/17 at 08:00; Stop 08/20/17 at 11:37; Status DC Naloxone HCl (Narcan) 0.1 mg Q5MP PRN IV SEE LABEL COMMENTS; Start 08/23/17 at 18:00; Stop 09/01/17 at 09:20; Status DC Naloxone HCl (Narcan) 0.1 mg Q5MP PRN IV SEE LABEL COMMENTS; Start 08/17/17 at 08:00; Stop 08/20/17 at 11:37; Status DC Nitroglycerin (Nitrostat (1/ 150)) 0.4 mg Q5MP PRN SL CHEST PAIN Last administered on 09/14/17 10:43; Start 08/19/17 at 09:30; Stop 09/18/17 at 09:29 Non-Formulary Medication (Epidural/KNOT TIER [place]) USE THIS ENTRY TO VEND ... Q1M PRN XX SEE LABEL COMMENTS; Start 08/23/17 at 18:00; Stop 09/01/17 at 09:20; Status DC Non-Formulary Medication (Epidural/KNOT TIER [place]) USE THIS ENTRY TO VEND ... Q1M PRN XX SEE LABEL COMMENTS; Start 08/17/17 at 08:00; Stop 08/20/17 at 11:37; Status DC Octreotide Acetate (SandoSTATIN) 100 mcg Q8H SC Last administered on 05:03; Start 08/20/17 at 14:00; Stop 08/24/17 at 07:37; Status DC Octreotide Acetate (SandoSTATIN) 200 mcg Q8H SC Last administered on 05:23; Start 08/24/17 at 14:00; Stop 08/29/17 at 09:05; Status DC Octreotide Acetate (SandoSTATIN) 200 mcg Q8H SC Last administered on 09/15/17 05:54; Start 09/07/17 at 14:00; Stop 10/07/17 at 13:59 Ondansetron HCl (ZOFRAN INJection) 4 mg Q4HP PRN IV NAUSEA OR VOMITING; Start 08/23/17 at 18:30; Stop 08/23/17 at 19:30; Status DC Ondansetron HCl (ZOFRAN INJection) 4 mg Q4HP PRN IV NAUSEA OR VOMITING; Start 08/16/17 at 00:00; Stop 08/16/17 at 01:15; Status DC Ondansetron HCl (ZOFRAN INJection) 4 mg Q6HP PRN IV NAUSEA; Start 08/23/17 at 18:00; Stop 09/01/17 at 09:20; Status DC Ondansetron HCl (ZOFRAN INJection) 4 mg Q6HP PRN IV NAUSEA OR VOMITING; Start 08/15/17 at 23:15; Stop 08/27/17 at 09:26; Status DC Ondansetron HCl (ZOFRAN INJection) 4 mg Q6HP PRN IV NAUSEA; Start 08/17/17 at 08:00; Stop 08/20/17 at 11:37; Status DC Pantoprazole Sodium (Protonix) 40 mg BID IV Last administered on 09/15/17 09: 52; Start 08/23/17 at 21:00; Stop 09/22/17 at 20:59 Pantoprazole Sodium (Protonix) 40 mg BID IV Last administered on 08/23/17 09: 34; Start 08/16/17 at 09:00; Stop 08/23/17 at 17:56; Status DC Phenol (Chloraseptic (Cepacol)) 1 spray Q2HP PRN MT SORE THROAT; Start at 15:45; Stop 09/30/17 at 15:44 Pneumococcal Polyvalent Vaccine (Prevnar 13) 0.5 ml ASDIRECTED IM Last administered on 08/19/17 10:16; Start 08/16/17 at 11:15; Stop 08/19/17 at 14:14 ; Status DC Propofol 1000 mg/ IV Miscellaneous Supplies 100 ml @ 6.68 mls/hr [id number] IV Last administered on 08/16/17 05:22; Start 08/15/17 at 23:47; Stop 08/16/17 at 10:41; Status DC Sodium Chloride 1,000 ml @ 15 mls/hr Q24H IV ; Start 08/23/17 at 17:53; Stop 08/24/17 at 07:51; Status DC Sodium Chloride 1,000 ml @ 15 mls/hr Q24H IV ; Start 08/17/17 at 07:49; Stop 08/17/17 at 07:55; Status DC Sodium Chloride 1,000 ml @ 30 mls/hr Q24H IV Last administered on 08/31/17 17:17; Start 08/24/17 at 18:00; Stop 09/03/17 at 01:57; Status DC Sodium Chloride 1,000 ml @ 200 mls/hr Q5H IV Last administered on 08/24/17 14:00; Start 08/24/17 at 07:45; Stop 08/24/17 at 17:21; Status DC Sodium Chloride (Saline Lock Flush) 10 ml ASDIRECTED PRN IV SEE LABEL COMMENTS Last administered on 09/12/17 17:59; Start 08/24/17 at 12:15; Stop 09/23/17 at 12:14 Sodium Chloride (Saline Lock Flush) 10 ml ASDIRECTED PRN IV SEE LABEL COMMENTS ; Start 08/20/17 at 20:45; Stop 08/21/17 at 14:31; Status DC Sodium Chloride (Saline Lock Flush) 10 ml PICC IV Last administered on 19:02; Start 08/24/17 at 18:00; Stop 09/23/17 at 17:59 Sodium Chloride (Saline Lock Flush) 10 ml SLF IV Last administered on 05:13; Start 08/20/17 at 22:00; Stop 08/21/17 at 14:31; Status DC Sucralfate (Carafate Suspension) 1 gm Q6H GT Last administered on 09/15/17 19: 02; Start 09/09/17 at 12:00; Stop 10/09/17 at 11:59 Vitamin D (Vitamin D) 1,000 units DAILY PO Last administered on 08/23/17 09: 36; Start 08/19/17 at 09:00; Stop 08/23/17 at 20:45; Status DC Zolpidem Tartrate (Ambien) 2.5 mg QHS PRN PO INSOMNIA Last administered on 00:09; Start 09/01/17 at 18:15; Stop 09/20/17 at 18:14 Allergies Coded Allergies: Penicillins (Verified Adverse Reaction, Intermediate, STOMACH ULCERS MANY YEARS AGO, 09/03/17) Objective Physical Examination Examination GENERAL APPEARANCE:comfortable. SKIN: Warm and moist. HEENT: Normocephalic, atraumatic. [place] palpebral conjunctiva, anicteric sclerae. Lips and mucosa appear moist. NECK: Supple, no thyromegaly. No obvious jugular venous distention. LUNGS: Clear to auscultation bilaterally. No wheezing appreciated. HEART: No chest wall abnormalities. Regular rate and rhythm with no murmurs appreciated. ABDOMEN: Abdomen is round, soft, nondistended. YORDY drain with bilious fluid, gastrostomy tube to bag with bilious fluid, jejunostomy feeding tube working. EXTREMITIES: Extremities have no deformities. No edema identified. Vital Signs Vital Signs Date Time Temp Pulse Resp B/P (MAP) Pulse Ox O2 Delivery O2 Flow Rate FiO2 09/15/17 14:00 97.2 79 18 115/67 (83) 97 Room Air I&Os I&O- Last 24 Hours up to 6 AM 09/16/17 06:00 Intake Total 2220 ml Output Total 325 ml Balance 1895 ml Laboratory Data Labs 24H Laboratory Tests 2 09/15/17 06:07: Nucleated Red Blood Cells % (auto) 0.0, Anion Gap 7L, Glomerular Filtration Rate > 60.0, Blood Urea Nitrogen 23H, Creatinine 1.05, Sodium Level 139, Potassium Level 3.7, Chloride Level 99, Carbon Dioxide Level 33H, Calcium Level 8.4L CBC/BMP Laboratory Tests 09/15/17 06:07 Red Blood Count 3.28 L, Mean Corpuscular Volume 95.4, Mean Corpuscular Hemoglobin 31.4, Mean Corpuscular Hemoglobin Concent 32.9, Red Cell Distribution Width 15.0 H, Calcium Level 8.4 L Impression Duodenal fistula stable CT scan of abdomen and pelvis shows no fluid collection maybe a couple of bubbles of air around the duodenal sweep. Drain remains in the right position. No CT evidence for pulmonary embolism. Continue current mgt with drainage of duodenal fistula, jejunostomy feeding. Expect fistula will take months to heal. Plan / VTE VTE Prophylaxis Ordered?: Yes Plan / Urinary Catheter Urinary Catheter: D/C [place] Reason for insertion/continuin: Critical Pt monitoring ORA SIMPSON MD Sep 15, 2017 19:58
[2017-09-15] MEDS: ATORVASTATIN 20 MG TAB PO SCH (21:50)
[2017-09-15] MEDS: ENOXAPARIN 40 MG/0.4 ML SYRINGE (J1650) SC SCH (21:55)
[2017-09-15 22:00] VITALS: BP 108/72
[2017-09-16] MEDS: SUCRALFATE SUSP 1GM/10ML UD GT SCH ×5 (05:19→23:25)
[2017-09-16] MEDS: SODIUM CHLORIDE 0.9% INJ 10 ML SYR IV SCH ×2 (05:20→18:43)
[2017-09-16] MEDS: MORPHINE 2 MG/ML 1ML SYRINGE IV PRN ×2 (05:20→18:58)
[2017-09-16] MEDS: OCTREOTIDE ACETATE 100 MCG/ML VIAL (J2354) SC SCH ×3 (05:21→21:25)
[2017-09-16] MEDS: LevoFLOXacin 500 MG TABLET PO SCH (05:21)
[2017-09-16] MEDS: METOPROLOL TART 25 MG TABLET PO SCH ×3 (05:22→21:24)
[2017-09-16 06:00] VITALS: BP 125/62
[2017-09-16 06:50] LABS: MEAN CORPUSCULAR HEMOGLOBIN 31.5 pg (27.0-33.0); MEAN CORPUSCULAR HGB CONC 32.6 g/dl (32.0-36.5); MEAN CORPUSCULAR VOLUME 96.7 fl (80.0-96.0); PLATELET COUNT, AUTOMATED 281 10^3/uL (150-450); WHITE BLOOD COUNT 8.3 10^3/uL (4.0-10.0)
[2017-09-16 07:10] LABS: ANION GAP 6 MEQ/L (8-16); BLOOD UREA NITROGEN 22 MG/DL (7-18); CALCIUM LEVEL 8.5 MG/DL (8.8-10.2); CARBON DIOXIDE LEVEL 34 MEQ/L (21-32); CHLORIDE LEVEL 101 MEQ/L (98-107); CREATININE FOR GFR 1.13 MG/DL (0.70-1.30); GLOMERULAR FILTRATION RATE > 60.0 (>49); GLUCOSE, FASTING 226 MG/DL (80-110); POTASSIUM SERUM 4.4 MEQ/L (3.5-5.1); SODIUM LEVEL 141 MEQ/L (136-145)
[2017-09-16] MEDS: IPRATROPIUM 0.5MG/ALBUTEROL 2.5MG INH SOL UD 3ML (DUONEB)(J7620) NEB SCH ×4 (07:55→20:00)
[2017-09-16] MEDS: PANTOPRAZOLE 40MG INJ (PROTONIX) (C9113) IV SCH ×2 (09:29→21:24)
[2017-09-16] MEDS: ASPIRIN 81 MG ENTERIC TAB PO SCH (09:29)
[2017-09-16] MEDS: DIAPER RELIEF PASTE (DESITIN) 60GM TOP SCH ×2 (09:30→21:24)
[2017-09-16] MEDS: NORCO, ANEXSIA 5/325MG TABLET (HYDROcodone/ACETAMINOPHEN) PO PRN ×2 (09:30→16:31)
[2017-09-16] MEDS: ISOSORBIDE MON. (IMDUR) 30 MG XR TAB PO SCH (09:30)
[2017-09-16 14:00] VITALS: BP 106/65
[2017-09-16] MEDS: ENOXAPARIN 40 MG/0.4 ML SYRINGE (J1650) SC SCH (21:23)
[2017-09-16] MEDS: ATORVASTATIN 20 MG TAB PO SCH (21:24)
[2017-09-16 22:00] VITALS: BP 118/70
[2017-09-16] MEDS: zolPIDEM TARTRATE 5 MG TAB PO PRN (23:25)
[2017-09-17] MEDS: LevoFLOXacin 500 MG TABLET PO SCH (05:07)
[2017-09-17] MEDS: SUCRALFATE SUSP 1GM/10ML UD GT SCH ×3 (05:07→17:34)
[2017-09-17] MEDS: OCTREOTIDE ACETATE 100 MCG/ML VIAL (J2354) SC SCH ×3 (05:08→22:00)
[2017-09-17] MEDS: METOPROLOL TART 25 MG TABLET PO SCH ×3 (05:08→22:39)
[2017-09-17] MEDS: SODIUM CHLORIDE 0.9% INJ 10 ML SYR IV SCH ×2 (05:09→17:34)
[2017-09-17 06:00] VITALS: BP 115/69
[2017-09-17] MEDS: IPRATROPIUM 0.5MG/ALBUTEROL 2.5MG INH SOL UD 3ML (DUONEB)(J7620) NEB SCH ×4 (06:30→19:29)
[2017-09-17] MEDS: PANTOPRAZOLE 40MG INJ (PROTONIX) (C9113) IV SCH ×2 (10:13→20:12)
[2017-09-17] MEDS: MORPHINE 2 MG/ML 1ML SYRINGE IV PRN ×4 (10:14→20:12)
[2017-09-17] MEDS: ASPIRIN 81 MG ENTERIC TAB PO SCH (10:16)
[2017-09-17] MEDS: ISOSORBIDE MON. (IMDUR) 30 MG XR TAB PO SCH (10:18)
[2017-09-17] MEDS: DIAPER RELIEF PASTE (DESITIN) 60GM TOP SCH ×2 (10:18→20:13)
[2017-09-17] MEDS: NORCO, ANEXSIA 5/325MG TABLET (HYDROcodone/ACETAMINOPHEN) PO PRN (12:21)
[2017-09-17 14:00] VITALS: BP 105/68
[2017-09-17] MEDS: ATORVASTATIN 20 MG TAB PO SCH (20:11)
[2017-09-17] MEDS: ENOXAPARIN 40 MG/0.4 ML SYRINGE (J1650) SC SCH (20:11)
[2017-09-17 22:00] VITALS: BP 130/64
[2017-09-18] MEDS: SUCRALFATE SUSP 1GM/10ML UD GT SCH ×4 (01:04→17:26)
[2017-09-18] MEDS: SODIUM CHLORIDE 0.9% INJ 10 ML SYR IV SCH ×2 (05:05→17:26)
[2017-09-18] MEDS: METOPROLOL TART 25 MG TABLET PO SCH ×3 (05:08→21:36)
[2017-09-18] MEDS: OCTREOTIDE ACETATE 100 MCG/ML VIAL (J2354) SC SCH ×3 (05:08→21:34)
[2017-09-18] MEDS: LevoFLOXacin 500 MG TABLET PO SCH (05:08)
[2017-09-18 06:00] VITALS: BP 122/76
[2017-09-18] MEDS: IPRATROPIUM 0.5MG/ALBUTEROL 2.5MG INH SOL UD 3ML (DUONEB)(J7620) NEB SCH ×4 (07:11→20:05)
[2017-09-18] MEDS: PANTOPRAZOLE 40MG INJ (PROTONIX) (C9113) IV SCH ×2 (09:56→21:33)
[2017-09-18] MEDS: DIAPER RELIEF PASTE (DESITIN) 60GM TOP SCH ×2 (09:56→21:37)
[2017-09-18] MEDS: ASPIRIN 81 MG ENTERIC TAB PO SCH (09:56)
[2017-09-18] MEDS: ISOSORBIDE MON. (IMDUR) 30 MG XR TAB PO SCH (09:56)
[2017-09-18] MEDS: NORCO, ANEXSIA 5/325MG TABLET (HYDROcodone/ACETAMINOPHEN) PO PRN ×2 (09:57→17:26)
[2017-09-18] MEDS: MORPHINE 2 MG/ML 1ML SYRINGE IV PRN (13:37)
[2017-09-18 13:38] VITALS: BP 98/54
[2017-09-18 14:00] VITALS: BP 100/59
[2017-09-18] MEDS: ENOXAPARIN 40 MG/0.4 ML SYRINGE (J1650) SC SCH (21:34)
[2017-09-18] MEDS: ATORVASTATIN 20 MG TAB PO SCH (21:36)
[2017-09-18 22:00] VITALS: BP 96/64
[2017-09-19] MEDS: NORCO, ANEXSIA 5/325MG TABLET (HYDROcodone/ACETAMINOPHEN) PO PRN ×2 (01:30→14:04)
[2017-09-19] MEDS: METOPROLOL TART 25 MG TABLET PO SCH ×3 (05:41→21:50)
[2017-09-19] MEDS: SODIUM CHLORIDE 0.9% INJ 10 ML SYR IV SCH ×2 (05:42→19:37)
[2017-09-19 06:00] VITALS: BP 125/65
[2017-09-19] MEDS: IPRATROPIUM 0.5MG/ALBUTEROL 2.5MG INH SOL UD 3ML (DUONEB)(J7620) NEB SCH ×4 (07:09→20:38)
[2017-09-19] MEDS: ASPIRIN 81 MG ENTERIC TAB PO SCH (10:36)
[2017-09-19] MEDS: DIAPER RELIEF PASTE (DESITIN) 60GM TOP SCH (10:37)
[2017-09-19] MEDS: PANTOPRAZOLE 40MG INJ (PROTONIX) (C9113) IV SCH (10:37)
[2017-09-19] MEDS: ISOSORBIDE MON. (IMDUR) 30 MG XR TAB PO SCH (10:37)
[2017-09-19 14:00] VITALS: BP 104/72
[2017-09-19] MEDS: ATORVASTATIN 20 MG TAB PO SCH (21:50)
[2017-09-19] MEDS: PANTOPRAZOLE 40MG TAB (PROTONIX) PO SCH (21:50)
[2017-09-19] MEDS: ENOXAPARIN 40 MG/0.4 ML SYRINGE (J1650) SC SCH (21:51)
[2017-09-19] MEDS: MORPHINE 2 MG/ML 1ML SYRINGE IV PRN (21:51)
[2017-09-19 22:00] VITALS: BP 110/59
[2017-09-20] MEDS: MORPHINE 2 MG/ML 1ML SYRINGE IV PRN (01:46)
[2017-09-20] MEDS: METOPROLOL TART 25 MG TABLET PO SCH ×3 (05:00→21:34)
[2017-09-20] MEDS: SODIUM CHLORIDE 0.9% INJ 10 ML SYR IV SCH ×2 (05:07→17:09)
[2017-09-20 06:00] VITALS: BP 113/62
[2017-09-20] MEDS: IPRATROPIUM 0.5MG/ALBUTEROL 2.5MG INH SOL UD 3ML (DUONEB)(J7620) NEB SCH ×4 (07:12→20:19)
[2017-09-20] MEDS: PANTOPRAZOLE 40MG TAB (PROTONIX) PO SCH ×2 (08:54→21:42)
[2017-09-20] MEDS: ISOSORBIDE MON. (IMDUR) 30 MG XR TAB PO SCH (08:54)
[2017-09-20] MEDS: ASPIRIN 81 MG ENTERIC TAB PO SCH (08:54)
[2017-09-20] MEDS ORDERED: PROPOFOL 200 MG/20 ML VIAL As Ordered ONE (12:20)
[2017-09-20] MEDS ORDERED: LIDOCAINE 2% INJ 100 MG/5 ML SDV (FOR ANES.) As Ordered ONE (12:20)
[2017-09-20] MEDS ORDERED: ONDANSETRON 4MG/2ML VIAL (J2405) IV PRN (13:15)
[2017-09-20] MEDS ORDERED: LR 1,000 ML IV SCH (13:15)
[2017-09-20 13:30] VITALS: BP 114/55
[2017-09-20] MEDS: ATORVASTATIN 20 MG TAB PO SCH (21:42)
[2017-09-20] MEDS: ENOXAPARIN 40 MG/0.4 ML SYRINGE (J1650) SC SCH (21:42)
[2017-09-20] MEDS: NORCO, ANEXSIA 5/325MG TABLET (HYDROcodone/ACETAMINOPHEN) PO PRN (21:57)
[2017-09-20 22:00] VITALS: BP 99/58
--- NOTE | 2017-09-21 05:20 | IPN ---
DATE OF SERVICE: 09/20/2017 The patient is now more than a month out from his original operation for a perforated duodenal ulcer. He continues with a fistula from the duodenum through a Oziel-Gilbert drain in the right upper quadrant. VITAL SIGNS: The patient is afebrile with stable vitals. His room air saturations are 93 or greater. Intake and output for the 8th showed 2200 in and 1200 out, though he had some voiding that was not completely recorded. His drain was recorded as having 205 mL out yesterday. PHYSICAL EXAMINATION: Shows a pleasant man in no acute distress. He is alert and oriented. Heart exam shows a regular rhythm. The lungs are clear. The abdomen shows that his midline incision is healing well with a single small open area about 2 cm in diameter at the top of his incision. His G-tube and J-tube sites are dressed. The YORDY drain in the right upper quadrant has a CHG Opsite in place, but this is loose along the side and at times there is air leakage as the holes of the Oziel-Gilbert drain are at the skin level. He does have some bilious fluid in the drain. The abdomen is otherwise soft and without significant tenderness. LABORATORY STUDIES: There were no labs today. He had an esophagogastroduodenoscopy (EGD) earlier in the day that showed a well-healed gastrojejunal anastomosis. This was a loop gastrojejunostomy. I was able to intubate the efferent and afferent limbs, though the afferent limb appeared somewhat more easily intubated than the efferent limb. The balloon of the gastrostomy tube was well seen and appeared larger than necessary. The stapled end of the stomach was also noted and appeared to be well closed. There was some mild redness in his stomach just above the anastomosis, but no overt ulceration. 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 PLAN: I will leave the gastrostomy tube clamped. I have deflated the balloon by about half with only 5 mL of fluid now in the gastrostomy balloon. The jejunostomy tube will remain in place for three times daily nutritional supplements. He will continue on his full liquid diet. We will monitor the output through his Oziel-Gilbert drain. Hopefully, this will close gradually over time. [facility]
[2017-09-21] MEDS: METOPROLOL TART 25 MG TABLET PO SCH ×3 (05:25→21:08)
[2017-09-21] MEDS: NORCO, ANEXSIA 5/325MG TABLET (HYDROcodone/ACETAMINOPHEN) PO PRN ×2 (05:25→21:08)
[2017-09-21] MEDS: SODIUM CHLORIDE 0.9% INJ 10 ML SYR IV SCH ×2 (05:26→17:38)
[2017-09-21 05:52] LABS: BASO # 0.1 10^3/uL (0.0-0.2); BASO % 0.8 % (0.0-1.0); EOS # 0.2 10^3/uL (0.0-0.50); EOS % 2.6 % (0.0-3.0); IMMATURE GRANULOCYTE % 0.3 % (0-0); MEAN CORPUSCULAR HGB CONC 32.4 g/dl (32.0-36.5); MEAN CORPUSCULAR VOLUME 95.5 fl (80.0-96.0); MONO # 0.5 10^3/uL (0.0-0.8); NEUTROPHILS # 2.9 10^3/uL (1.8-7.7); NEUTROPHILS % 44.3 % (36.0-66.0); PLATELET COUNT, AUTOMATED 288 10^3/uL (150-450); RED CELL DISTRIBUTION WIDTH 15.5 % (11.5-14.5); WHITE BLOOD COUNT 6.6 10^3/uL (4.0-10.0)
[2017-09-21 06:00] VITALS: BP 124/68
[2017-09-21 06:14] LABS: ALBUMIN 2.5 GM/DL (3.2-5.2); ALBUMIN/GLOBULIN RATIO 0.58 (1.00-1.93); ALKALINE PHOSPHATASE 213 U/L (45-117); ALT/SGPT 153 U/L (12-78); ANION GAP 7 MEQ/L (8-16); AST/SGOT 99 U/L (7-37); BILIRUBIN,TOTAL 1.3 MG/DL (0.2-1.0); BLOOD UREA NITROGEN 19 MG/DL (7-18); CALCIUM LEVEL 8.4 MG/DL (8.8-10.2); CARBON DIOXIDE LEVEL 32 MEQ/L (21-32); CHLORIDE LEVEL 100 MEQ/L (98-107); CREATININE FOR GFR 0.88 MG/DL (0.70-1.30); GLOMERULAR FILTRATION RATE > 60.0 (>49); GLUCOSE, FASTING 84 MG/DL (80-110); POTASSIUM SERUM 3.6 MEQ/L (3.5-5.1); SODIUM LEVEL 139 MEQ/L (136-145); TOTAL PROTEIN 6.8 GM/DL (6.4-8.2)
[2017-09-21] MEDS: IPRATROPIUM 0.5MG/ALBUTEROL 2.5MG INH SOL UD 3ML (DUONEB)(J7620) NEB SCH ×4 (07:01→19:44)
[2017-09-21] MEDS: PANTOPRAZOLE 40MG TAB (PROTONIX) PO SCH ×2 (08:42→21:07)
[2017-09-21] MEDS: ISOSORBIDE MON. (IMDUR) 30 MG XR TAB PO SCH (08:42)
[2017-09-21] MEDS: ASPIRIN 81 MG ENTERIC TAB PO SCH (08:42)
[2017-09-21 14:00] VITALS: BP 97/58
[2017-09-21] MEDS ORDERED: LIDOCAINE 1% MDV 20ML VIAL As Ordered ONE (17:01)
[2017-09-21] MEDS ORDERED: LIDOCAINE 1% MDV 20ML VIAL SC ONE (17:45)
--- NOTE | 2017-09-21 18:40 | IPN ---
DATE: 09/19/2017 HISTORY: The patient is continuing to heal from his perforated duodenal ulcer with a duodenal leak through a Oziel-Gilbert drain in the right upper quadrant. Vital signs: The patient has been afebrile over the past 24 hours. His pulse is in the 70s with a good blood pressure. Intake and output shows that on the he had 2260 recorded in and 815 recorded out. He has had a bowel movement recorded. He remains on tube feedings now getting 3 cans of Jevity 1.5 with some free water daily. PHYSICAL EXAMINATION: The patient is a somewhat disheveled appearing man who appears older than his stated age of 66 years. He denies any significant discomfort currently. Heart exam shows a regular rhythm. The lungs are clear. The abdomen shows that his midline incision has a small open area at the top, which apparently has been getting packed with a small amount of iodoform gauze daily. I see no reason to continue this for this small shallow area. The J tube and the G tube in the left side of the abdomen have sutures in place holding the flanges to the skin and I removed these and identified that there is significant erosion of the underlying skin with breakdown from both pressure and probably from moist desquamation. The Oziel-Gilbert drain in the right upper quadrant seems to have slipped out slightly. There is a suture that is incompletely holding this at the skin surface and it appears that probably we will have difficulty maintaining a seal given that the external most openings of the drain appear to be at or outside the skin surface. The abdomen is otherwise soft and nontender. LABORATORY STUDIES: The patient has had no new labs on the . IMPRESSION: 1. Duodenal fistula which appears to be adequately controlled by his Oziel-Gilbert drain. 2. History of perforated duodenal ulcer. 3. Multiple healing wounds. PLAN: I will have the nurses stop packing his midline wound and just have them wash this and apply a nonstick dressing twice daily. I removed the stitches at the flanges of the G and J tubes and have ordered some local wound care so that these areas can heal. I will place a CHG dressing over the Oziel-Gilbert site in hopes that we can maintain a seal to maintain suction to this drain. If this proves difficult then I may just cut the drain off and convert this to a passive drain. It is still unclear to me whether he has any degree of outflow obstruction at his gastrojejunostomy. His output seems to have diminished from the fistula. Apparently, we have been letting him take full liquids orally, but then have some times his G tube has been to suction. I have recommended that we proceed with an upper endoscopy tomorrow to assess his gastrojejunal anastomosis and ascertain if there is any significant degree of outflow obstruction. [facility]
[2017-09-21] MEDS: ATORVASTATIN 20 MG TAB PO SCH (21:07)
[2017-09-21] MEDS: ENOXAPARIN 40 MG/0.4 ML SYRINGE (J1650) SC SCH (21:08)
[2017-09-21 22:00] VITALS: BP 99/55
[2017-09-22] MEDS: zolPIDEM TARTRATE 5 MG TAB PO PRN ×2 (03:57→21:19)
[2017-09-22] MEDS: NORCO, ANEXSIA 5/325MG TABLET (HYDROcodone/ACETAMINOPHEN) PO PRN ×4 (03:58→21:56)
[2017-09-22 06:00] VITALS: BP 115/68
[2017-09-22] MEDS: METOPROLOL TART 25 MG TABLET PO SCH ×3 (06:00→21:20)
[2017-09-22] MEDS: IPRATROPIUM 0.5MG/ALBUTEROL 2.5MG INH SOL UD 3ML (DUONEB)(J7620) NEB SCH ×4 (07:14→19:53)
[2017-09-22] MEDS: ISOSORBIDE MON. (IMDUR) 30 MG XR TAB PO SCH (08:52)
[2017-09-22] MEDS: PANTOPRAZOLE 40MG TAB (PROTONIX) PO SCH ×2 (08:52→21:20)
[2017-09-22] MEDS: ASPIRIN 81 MG ENTERIC TAB PO SCH (08:52)
[2017-09-22 14:00] VITALS: BP 108/59
[2017-09-22] MEDS: ATORVASTATIN 20 MG TAB PO SCH (21:20)
[2017-09-22] MEDS: ENOXAPARIN 40 MG/0.4 ML SYRINGE (J1650) SC SCH (21:22)
[2017-09-22 22:00] VITALS: BP 118/59
[2017-09-23] MEDS: ACETAMINOPHEN TAB 650MG DOSE (2X325MG) PO PRN (03:00)
[2017-09-23] MEDS: METOPROLOL TART 25 MG TABLET PO SCH ×3 (05:03→21:22)
[2017-09-23 06:00] VITALS: BP 108/56
[2017-09-23] MEDS: IPRATROPIUM 0.5MG/ALBUTEROL 2.5MG INH SOL UD 3ML (DUONEB)(J7620) NEB SCH ×4 (07:37→20:16)
[2017-09-23] MEDS: ASPIRIN 81 MG ENTERIC TAB PO SCH (10:30)
[2017-09-23] MEDS: ISOSORBIDE MON. (IMDUR) 30 MG XR TAB PO SCH (10:31)
[2017-09-23] MEDS: PANTOPRAZOLE 40MG TAB (PROTONIX) PO SCH ×2 (10:31→21:22)
[2017-09-23] MEDS: NORCO, ANEXSIA 5/325MG TABLET (HYDROcodone/ACETAMINOPHEN) PO PRN ×2 (12:15→18:46)
[2017-09-23 14:00] VITALS: BP 100/64
--- NOTE | 2017-09-23 19:32 | IPN ---
DATE: 09/21/2017 HISTORY: Patient is a 66-year-old man over a month out from initial surgery for a perforated duodenal ulcer. 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 The patient has been doing well overall and is off antibiotics. Vital signs show that he has been afebrile over the past 24 hours with a pulse in the 70s and a good blood pressure. Intake and output shows 1900 in with 700 out on 09/20. I think we may be under reporting his urine output as there are no voids recorded other than the 600 of fluid. His drain yesterday in the right upper quadrant put out 100 mL, though he had some leakage around it apparently. OBJECTIVE: Physical exam reveals a somewhat disheveled-appearing man looking older than his stated age of 66 years. He is alert and oriented. He denies any pain at this time. He has had no nausea or vomiting. He has been tolerating some full liquids and is getting three cans of tube feedings through his jejunostomy (J) tube daily. Heart exam shows a regular rate and rhythm. The lungs are clear. Examination of his abdomen shows that his midline wound is healing well with a small shallow area at the top of the incision that has not yet healed. The drain sites on the left where his gastrostomy (G)-tube and J-tube are, are healing over the last couple of days since then removed his sutures. Both of these are capped. The Oziel-Gilbert drain in the right upper quadrant has a CHG OpSite in place but it is leaking air beneath the edge of this where the outermost holes of the drain are exposed above the skin so this is not sealing. The abdomen is otherwise soft and without tenderness. LABORATORY STUDIES: The patient had labs on the morning of 09/21 that showed a white count of seven with a hemoglobin of 10, hematocrit of 30 and platelet count of 244,000. His chemistry profile showed normal electrolytes with a BUN of 19, creatinine 0.88 and glucose of 84. His liver function tests are slightly elevated with AST of 99, ALT of 153 and alkaline phosphatase of 213. Total protein of 6.80 with an albumin of 2.5. IMPRESSION: The patient is doing well with what appears to be a controlled duodenal fistula at this time. Unfortunately his drain is now exposed and not maintaining suction. PLAN: I will cut off his drain and suture this at the skin and this was accomplished. An OpSite dressing was placed around the drain exit site, and this was covered with a wound vacuum-assisted closure (VAC) dressing to apply suction over the open end of the drain and the surrounding wound to try to maintain drainage of this. He will continue his local wound care to the midline. As he is not receiving any intravenous (IV) medications, I will stop the morphine which was ordered and remove his peripherally inserted central catheter (PICC) line to prevent complications from this. I will also allow him to take a soft diet rather than just full liquids. He appears to be making overall good progress and we will monitor his drain closely in hopes that this will decrease output over the next few days to weeks. ALBERTO
[2017-09-23] MEDS: ENOXAPARIN 40 MG/0.4 ML SYRINGE (J1650) SC SCH (21:21)
[2017-09-23] MEDS: ATORVASTATIN 20 MG TAB PO SCH (21:21)
[2017-09-23 22:00] VITALS: BP 112/58
[2017-09-24] MEDS: NORCO, ANEXSIA 5/325MG TABLET (HYDROcodone/ACETAMINOPHEN) PO PRN ×3 (03:25→21:10)
[2017-09-24] MEDS: METOPROLOL TART 25 MG TABLET PO SCH ×3 (05:46→21:02)
[2017-09-24 06:00] VITALS: BP 127/65
[2017-09-24 07:32] LABS: MEAN CORPUSCULAR HGB CONC 32.2 g/dl (32.0-36.5); MEAN CORPUSCULAR VOLUME 96.3 fl (80.0-96.0); PLATELET COUNT, AUTOMATED 292 10^3/uL (150-450); RED CELL DISTRIBUTION WIDTH 15.6 % (11.5-14.5); WHITE BLOOD COUNT 6.6 10^3/uL (4.0-10.0)
[2017-09-24] MEDS: IPRATROPIUM 0.5MG/ALBUTEROL 2.5MG INH SOL UD 3ML (DUONEB)(J7620) NEB SCH ×4 (08:00→19:58)
[2017-09-24 08:03] LABS: ALBUMIN 2.5 GM/DL (3.2-5.2); ALBUMIN/GLOBULIN RATIO 0.61 (1.00-1.93); ALKALINE PHOSPHATASE 202 U/L (45-117); ALT/SGPT 156 U/L (12-78); ANION GAP 9 MEQ/L (8-16); AST/SGOT 85 U/L (7-37); BLOOD UREA NITROGEN 21 MG/DL (7-18); CALCIUM LEVEL 8.6 MG/DL (8.8-10.2); CARBON DIOXIDE LEVEL 29 MEQ/L (21-32); CHLORIDE LEVEL 100 MEQ/L (98-107); CREATININE FOR GFR 0.88 MG/DL (0.70-1.30); GLOMERULAR FILTRATION RATE > 60.0 (>49); GLUCOSE, FASTING 172 MG/DL (80-110); POTASSIUM SERUM 3.6 MEQ/L (3.5-5.1); SODIUM LEVEL 138 MEQ/L (136-145); TOTAL PROTEIN 6.6 GM/DL (6.4-8.2)
[2017-09-24] MEDS: ASPIRIN 81 MG ENTERIC TAB PO SCH (08:35)
[2017-09-24] MEDS: PANTOPRAZOLE 40MG TAB (PROTONIX) PO SCH ×2 (08:35→21:02)
[2017-09-24] MEDS: ISOSORBIDE MON. (IMDUR) 30 MG XR TAB PO SCH (08:35)
[2017-09-24 14:45] VITALS: BP 117/60
--- NOTE | 2017-09-24 18:13 | IPN ---
DATE: 09/24/2017 Patient did generally well over the weekend. The VAC dressing over his drain site seems to be controlling this adequately. It is difficult to determine the amount of drainage. 500 mL was emptied on the and 220 was recorded for the . Another 500 was discarded this afternoon. Patient denies any nausea or vomiting or significant pain. Vital shows that he is afebrile with a pulse in the 60s to 70s and a good blood pressure. Intake and output from the shows 1150 in and 720 out. We do not seem to be recording the full amount of his tube feeding which should be 3 cans of Jevity 1.5 and some water daily. PHYSICAL EXAM: Patient is lying quietly on the hospital bed in no distress. Eyes are anicteric. Heart exam shows a regular rhythm and the lungs are clear. Abdomen shows that his G and J tube sites look good. His midline incision is healing well with a small open area at the superior end of his wound that appears to be draining a small amount of either lightly bilious fluid or just some liquefied fat. His VAC dressing is intact but there is some fluid tracking beneath the Tegaderm's that were placed underneath the sponge. I changed the dressing and there was some tracking of fluid beneath the Tegaderm's with some irritation of the skin in an area about 3 x 7 cm. Lateral to the drain site. A new dressing was applied using some DuoDerm over the skin with the sponge on top of this and the occlusive dressing over that. LABS: CBC today showed a white count of 7 with a hemoglobin of 10 and hematocrit of 31 and a platelet count of 292,000. Chemistry profile showed normal electrolytes with a BUN 21, creatinine 0.9 and a glucose of 172. His liver function tests are very slightly elevated with a total protein of 6.6 and an albumin of 2.5. Patient has no new imaging studies. 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 PLAN: The patient will have the VAC dressing continued. He will continue with his three times daily Jevity. He is taking a diet orally as well. I think that it is time to start making plans for patients discharge home. This would require approval for the VAC dressing as well as arrangements for a visiting nurse. ALBERTO
[2017-09-24] MEDS: ENOXAPARIN 40 MG/0.4 ML SYRINGE (J1650) SC SCH (21:01)
[2017-09-24] MEDS: ATORVASTATIN 20 MG TAB PO SCH (21:03)
[2017-09-24] MEDS: zolPIDEM TARTRATE 5 MG TAB PO PRN (21:08)
[2017-09-24 22:00] VITALS: BP 160/77
[2017-09-25 06:00] VITALS: BP 115/55
[2017-09-25] MEDS: METOPROLOL TART 25 MG TABLET PO SCH ×3 (06:28→21:00)
[2017-09-25] MEDS: NORCO, ANEXSIA 5/325MG TABLET (HYDROcodone/ACETAMINOPHEN) PO PRN ×3 (06:28→21:03)
[2017-09-25] MEDS: IPRATROPIUM 0.5MG/ALBUTEROL 2.5MG INH SOL UD 3ML (DUONEB)(J7620) NEB SCH ×4 (07:34→20:00)
[2017-09-25] MEDS: ASPIRIN 81 MG ENTERIC TAB PO SCH (09:20)
[2017-09-25] MEDS: ISOSORBIDE MON. (IMDUR) 30 MG XR TAB PO SCH (09:20)
[2017-09-25] MEDS: PANTOPRAZOLE 40MG TAB (PROTONIX) PO SCH ×2 (09:20→21:00)
[2017-09-25] MEDS: zolPIDEM TARTRATE 5 MG TAB PO PRN (21:00)
[2017-09-25] MEDS: ENOXAPARIN 40 MG/0.4 ML SYRINGE (J1650) SC SCH (21:00)
[2017-09-25] MEDS: ATORVASTATIN 20 MG TAB PO SCH (21:02)
[2017-09-25 22:00] VITALS: BP 108/53
[2017-09-26 06:00] VITALS: BP 102/58
[2017-09-26] MEDS: METOPROLOL TART 25 MG TABLET PO SCH ×3 (06:02→21:30)
[2017-09-26] MEDS: IPRATROPIUM 0.5MG/ALBUTEROL 2.5MG INH SOL UD 3ML (DUONEB)(J7620) NEB SCH ×4 (07:16→19:51)
[2017-09-26] MEDS: ASPIRIN 81 MG ENTERIC TAB PO SCH (07:59)
[2017-09-26] MEDS: PANTOPRAZOLE 40MG TAB (PROTONIX) PO SCH ×2 (08:00→21:31)
[2017-09-26] MEDS: ISOSORBIDE MON. (IMDUR) 30 MG XR TAB PO SCH (08:06)
[2017-09-26] MEDS: NORCO, ANEXSIA 5/325MG TABLET (HYDROcodone/ACETAMINOPHEN) PO PRN ×3 (08:07→21:35)
[2017-09-26 14:00] VITALS: BP 116/61
[2017-09-26] MEDS: zolPIDEM TARTRATE 5 MG TAB PO PRN (21:29)
[2017-09-26] MEDS: ATORVASTATIN 20 MG TAB PO SCH (21:31)
[2017-09-26] MEDS: ENOXAPARIN 40 MG/0.4 ML SYRINGE (J1650) SC SCH (21:31)
[2017-09-26 22:00] VITALS: BP 115/61
[2017-09-27] MEDS: NORCO, ANEXSIA 5/325MG TABLET (HYDROcodone/ACETAMINOPHEN) PO PRN ×3 (03:41→18:49)
--- NOTE | 2017-09-27 05:30 | ROOPDOC ---
[facility] Report Of Operation Report of Operation DATE OF PROCEDURE: 08/23/17 PREPROCEDURE DIAGNOSES: Perforated Duodenal Ulcer, Repair of Duodenal Leak POSTPROCEDURE DIAGNOSES: Afferent Loop Obstruction, Duodenal Leak from both Duodenal Ulcer Perforation and Duodenostomy Site PROCEDURE: Exploratory Laparotomy, Repair of Leak at Duodenostomy Site, Placement of Retrograde Internal Gastroduodenostomy Drain SURGEON: Liu Everett MD MONORAIL HELPER: Parvez Bob DO ANESTHESIA: general anesthesia ESTIMATED BLOOD LOSS: Approximately 50 mL. COMPLICATIONS: none, patient extubated REMARKS: Duodenostomy tube (red rubber catheter) displaced out of the lateral duodenostomy site with resulting leakage at the duodenostomy tube site. Persistent leakage at the original large duodenal ulcer (distal first portion of duodenum)site but intact omental patch. Colon distended and stomach decompressed (gastrojejunostomy is antecolic) giving an appearance of afferent loop obstruction(afferent loop distended, efferent loop normal to mildly decompressed) PROCEDURE NOTE: Patient is 66 M who on 09.15 presented septic with duodenal perforation at the first portion of the duodenum of several days duration prior to ED presentation. An omental patch repair (hole is 2 to 3 cm wide, could not be closed primarily as tissue friable) performed with pyloric exclusion and gastrojejunostomy done as well as lateral internal duodenostomy tube to drain at the duodenal perforation. A feeding jejunostomy tube was also placed. Patient did very well intially recovering from his sepsis and is now on the floor but for the past two days there had been marked increase of bilious drainage from the YORDY drain at the right side including more than 1L of bilious drainage last night prompting a return trip to the OR. DESCRIPTION OF PROCEDURE: Patient has been on Invanz 1 gm IV daily since admission and this was continued perioperatively. He was brought to the operating room, laid supine on the table. General Endotracheal Anesthesia started without complications. His YORDY drains adn amisha were removed, Davis catheter placed. His abdomen then widely prepped with betadine and sterile drapes placed. His original abdominal incision was opened up by cutting the PDS fascial closure and this was extended both superiorly and inferiorly to gain more exposure. As expected, the bowels and omentum at this postoperative state are adhered to one another, edematous from the bilious drainage though this has been mostly compartmentalized at the right upper quadrant, above the transverse colon. The bowels underneath the transverse colon had been relatively spared of the inflammation by the bulky omentum. The gastrojejunostomy anastomosis was examined and noted to be healthy. His colon is very distended mostly with air but also with some hard stools. The stomach was originally below the colon due to the massive distention of the stomach on presentation. With decompression this has moved up superior to the transverse colon. The gastrojejunostomy is antecolic. Together with the inflammation, this seems to have tethered at the afferent loop. The afferent loop seems moderately distended with the stomach relatively collapsed, the efferent limb normal to mildly decompressed. This gives the appearance of afferent loop obstruction. I carefully freed up the omentum from the surrounding bowels. Followed the afferent loop towards the ligament of treitz also freeing up attaching omentum and bowels at the area. I followed the efferent loop to the lateral abdominal wall to the feeding jejunostomy. I then brought down the transverse colon ( already freed from previous surgery) and set up the bookwalter retractor. The red rubber catheter (duodenostomy tube) was found outside of the bowel. There was fresh bile leakage at the right upper quadrant area with resulting fatty necrosis of the surrounding omentum also of some of the omentum I used for the duodenal patch. but the patch itself if adhered to the duodenum. I see leakage of bile around the adhered patch. At the second portion of the duodenum, The hole from the duodenostomy tube site is noted roughly about 1 cm with heaped up mucosa from the inside of the hole. I removed the red rubber catheter and irrigated at the area. The omentum that necrotic was removed. Most of the patch at the duodenal ulcer remains intact. I further freed up the duodenum laterally and posteriorly, though at this state the plane was difficult to develop due to the inflammation of the past week. I then trimmed the mucosa and tried to close the hole transversely. The tissues unfortunately are much too friable and the 3- 0 PDS sutures are pulling through and I am not able to securely close the defect. At this point i asked Dr. Bob to assist me with the surgery and he scrubbed in. I closed the duodenostomy tube site vertically with interrupted sutures of 3-0 PDS and is somewhat successful in closing it but I still could see some leakage of bile in between the sutures. I was able to place 3 sutures to close the 1 cm hole. I tried to see if I can place a retrograde jejunostomy tube as an internal drain but the afferent limb was too short to reach the left abdominal wall securely thus this was not an option. I have then decided to place an internal gastrojejunostomy tube drain using the gastrojejunostomy feeding tube from the [facility] which reaches 75 cms and also has an internal drain for the stomach/afferent limb. A purse string suture is placed at the anterolateral wall of the stomach body. An incision was created. I passed the gastrotomy tube portion through the abdominal wall and in the usual Ana M fashion made my gastrostomy at the middle of the purse string and threaded the gastrostomy tube through it. I then placed another purse string of 3-0 silk around it and hanged this to the lateral abdominal wall with separate 3-0 silks around the gastrostomy tube site. I then directed the tube to go beyond the stomach into the afferent limb. I tested this to suction and seemed to be working appropriately. I then threaded through the long jejunostomy feeding part of the set up and guided this retrogradely into about the third portion of the duodenal limb. I again tested the set up by placing the end of the jejunostomy tube with the suction and I was able to get some drainage from it under suction not much. As there are no other options of placing a long retrograde tube through the stomach to reach the duodenal hole, this sets up with unfortunately have to do. I then replaced a Oziel-Gilbert drain threading from the right abdominal wall onto the duodenal sweep to suction of the liver drains out of the original duodenal perforation and the new duodenal closure on the second portion of the duodenum. At this point I surveyed further rest of the abdomen. I used about 5 L of warm saline to irrigate. The inflamed and necrotic portions of the omentum were divided with LigaSure. The omentum was then draped back onto the midline bowels to cover this from our incision. I then closed our fascial incision is running 1 looped PDS. The subcutaneous tissue was again irrigated. This was loosely closed with amisha placed wide apart and Telfa eliud in between the amisha to able drainage of whatever fluid accumulates on his thick subcutaneous tissue. The Oziel-Gilbert drain and a new gastrojejunostomy drain was sutured in place and labeled. Patient was sent from the awakened, extubated successfully and brought to recovery room in stable condition. ORA EVERETT MD Sep 27, 2017 05:31
[2017-09-27] MEDS: METOPROLOL TART 25 MG TABLET PO SCH ×3 (05:59→21:48)
[2017-09-27 06:00] VITALS: BP 117/60
--- NOTE | 2017-09-27 06:32 | IPN ---
DATE OV VISIT: 09/26/2017 The patient has been doing well and continues with his three cans of Jevity 1.5 calories per day. He is also taking a soft diet as tolerated. He says he is not really eating much and it is difficult for me to tell from speaking with him whether this is because of discomfort or just that he does not feel hungry enough to eat more. PHYSICAL EXAMINATION: VITAL SIGNS: The patient has been afebrile with normal vitals over the last 24 hours. Intake and output shows only 690 recorded yesterday in though this clearly under reports his tube feedings and probably his oral intake as well. His drain yesterday shows 300 mL reported. GENERAL: The patient is unshaven but pleasant and alert. ABDOMEN: Abdomen is soft. His midline incision is healed except for a small area at the very top. His drain site vacuum assisted closure (VAC) dressing is nicely adherent with no sign of breakdown and continues to put out some greenish fluid. His G-tube and J-tube sites are healing very nicely. The abdomen is otherwise soft and without significant tenderness. LABORATORY DATA: The patient has no new labs today. IMPRESSION: Controlled duodenal fistula generally doing well. PLAN: I discussed with the patient the possibility of stopping his tube feedings and seeing if he can just get by on oral intake. I suspect he might very well at this point be able to eat well enough that we could stop his tube feedings altogether which would simplify his home care. I think the vacuum assisted closure (VAC) dressing is working very well to manage his fistula using his cut off drain as a conduit. I do not think there is a better technique that we could utilize at this time. I will consider stopping his tube feedings in the morning and advancing his diet fully to regular. ALBERTO
[2017-09-27 06:36] LABS: BASO % 0.6 % (0.0-1.0); EOS # 0.2 10^3/uL (0.0-0.50); EOS % 2.6 % (0.0-3.0); IMMATURE GRANULOCYTE % 0.1 % (0-0); LYMPH # 2.8 10^3/uL (1.5-4.5); LYMPH % 40.1 % (24.0-44.0); MEAN CORPUSCULAR HEMOGLOBIN 31.1 pg (27.0-33.0); MEAN CORPUSCULAR HGB CONC 32.7 g/dl (32.0-36.5); MEAN CORPUSCULAR VOLUME 95.2 fl (80.0-96.0); MONO # 0.5 10^3/uL (0.0-0.8); MONO % 6.7 % (0.0-5.0); NEUTROPHILS # 3.4 10^3/uL (1.8-7.7); NEUTROPHILS % 49.9 % (36.0-66.0); PLATELET COUNT, AUTOMATED 284 10^3/uL (150-450); RED CELL DISTRIBUTION WIDTH 15.3 % (11.5-14.5); WHITE BLOOD COUNT 6.9 10^3/uL (4.0-10.0)
[2017-09-27 07:00] LABS: ALBUMIN 2.4 GM/DL (3.2-5.2); ALKALINE PHOSPHATASE 206 U/L (45-117); ALT/SGPT 147 U/L (12-78); ANION GAP 7 MEQ/L (8-16); AST/SGOT 84 U/L (7-37); BILIRUBIN,TOTAL 1.2 MG/DL (0.2-1.0); BLOOD UREA NITROGEN 17 MG/DL (7-18); CALCIUM LEVEL 8.7 MG/DL (8.8-10.2); CARBON DIOXIDE LEVEL 27 MEQ/L (21-32); CHLORIDE LEVEL 102 MEQ/L (98-107); CREATININE FOR GFR 0.89 MG/DL (0.70-1.30); GLOMERULAR FILTRATION RATE > 60.0 (>49); GLUCOSE, FASTING 126 MG/DL (80-110); POTASSIUM SERUM 3.6 MEQ/L (3.5-5.1); SODIUM LEVEL 136 MEQ/L (136-145); TOTAL PROTEIN 7.2 GM/DL (6.4-8.2)
[2017-09-27] MEDS: IPRATROPIUM 0.5MG/ALBUTEROL 2.5MG INH SOL UD 3ML (DUONEB)(J7620) NEB SCH ×4 (08:00→20:08)
[2017-09-27] MEDS: PANTOPRAZOLE 40MG TAB (PROTONIX) PO SCH ×2 (09:10→21:47)
[2017-09-27] MEDS: ASPIRIN 81 MG ENTERIC TAB PO SCH (09:10)
[2017-09-27] MEDS: ISOSORBIDE MON. (IMDUR) 30 MG XR TAB PO SCH (09:10)
[2017-09-27] MEDS: ENOXAPARIN 40 MG/0.4 ML SYRINGE (J1650) SC SCH (21:47)
[2017-09-27] MEDS: ATORVASTATIN 20 MG TAB PO SCH (21:47)
[2017-09-27] MEDS: zolPIDEM TARTRATE 5 MG TAB PO PRN (21:47)
[2017-09-27 22:00] VITALS: BP 111/62
[2017-09-28] MEDS: NORCO, ANEXSIA 5/325MG TABLET (HYDROcodone/ACETAMINOPHEN) PO PRN ×3 (03:49→20:01)
[2017-09-28 06:00] VITALS: BP 109/60
[2017-09-28] MEDS: METOPROLOL TART 25 MG TABLET PO SCH ×3 (06:42→22:23)
[2017-09-28] MEDS: IPRATROPIUM 0.5MG/ALBUTEROL 2.5MG INH SOL UD 3ML (DUONEB)(J7620) NEB SCH ×4 (07:06→19:25)
[2017-09-28] MEDS: PANTOPRAZOLE 40MG TAB (PROTONIX) PO SCH ×2 (08:47→20:00)
[2017-09-28] MEDS: ASPIRIN 81 MG ENTERIC TAB PO SCH (08:47)
[2017-09-28] MEDS: ISOSORBIDE MON. (IMDUR) 30 MG XR TAB PO SCH (08:48)
--- NOTE | 2017-09-28 10:56 | IPNPDOC ---
Subjective General Date/Time Seen The patient was seen on 09/28/17 at 10:52. Subject Chief Complaint/History The patient is a 66-year-old male admitted with a reason for visit of Perforated Duodenal Ulcer. So far doing well. He has been trying some solid food though he complains of getting full easily. Denies nausea or vomiting. He remains on intermittent tube feedings. Secondary issue is the right upper quadrant drain currently is hoped to a wound VAC and seems to be working appropriately. Current Medications Current Medications Current Medications Acetaminophen (Tylenol Tab) 650 mg Q4HP PRN PO MILD PAIN or TEMP > 101 Last administered on 09/23/17 03:00; Start 08/15/17 at 23:15; Stop 10/13/17 at 23: 14 Acetaminophen/ Hydrocodone Bitart ([place], [place]nex[place] 5/325) 1 tab Q4HP PRN PO MILD /MODERATE PAIN (PS 1-7); Start 08/20/17 at 11:45; Stop 08/23/17 at 20:45; Status DC Acetaminophen/ Hydrocodone Bitart ([place], [place]nex[place] 5/325) 2 tab Q4HP PRN PO SEVERE PAIN (PS 8-10) Last administered on 08/23/17 05:56; Start 08/20/17 at 11:45; Stop 08/23/17 at 20:45; Status DC Acetaminophen/ Hydrocodone Bitart ([place], Anexsia 5/325) 2 tab Q6HP PRN PO SEVERE PAIN (PS 8-10) Last administered on 09/28/17 03:49; Start 09/01/17 at 09:30; Stop 10/02/17 at 09:29 Albuterol Sulfate (Proventil Neb) 2.5 mg Q2HP PRN NEB SHORTNESS OF BREATH; Start 08/16/17 at 00:00; Stop 08/27/17 at 09:26; Status DC Albuterol/ Ipratropium (Duoneb (Ipr 0.5mg/Alb 2.5mg)) 3 ml RQ4H NEB Last administered on 08/16/17 09:25; Start 08/16/17 at 00:00; Stop 08/16/17 at 10:43 ; Status DC Albuterol/ Ipratropium (Duoneb (Ipr 0.5mg/Alb 2.5mg)) 3 ml RQID NEB Last administered on 09/28/17 07:06; Start 08/16/17 at 12:00; Stop 10/14/17 at 11: 59 Amino Ac/Electrol/ Dextrose/Calcium 2,000 ml @ 50 mls/hr ONCE@1800 IV Last administered on 08/28/17 18:06; Start 08/28/17 at 18:00; Stop 08/29/17 at 17 :59; Status DC Amino Ac/Electrol/ Dextrose/Calcium 2,000 ml @ 50 mls/hr ONCE@1800 IV Last administered on 08/30/17 18:35; Start 08/30/17 at 18:00; Stop 08/31/17 at 17 :59; Status DC Amino Ac/Electrol/ Dextrose/Calcium 2,000 ml @ 75 mls/hr ONCE@1800 IV Last administered on 08/25/17 17:15; Start 08/25/17 at 18:00; Stop 08/26/17 at 17 :59; Status DC Amino Ac/Electrol/ Dextrose/Calcium 2,000 ml @ 75 mls/hr ONCE@1800 IV Last administered on 08/26/17 17:38; Start 08/26/17 at 18:00; Stop 08/27/17 at 17 :59; Status DC Aspirin (Ecotrin) 81 mg DAILY PO Last administered on 09/28/17 08:47; Start 09/06/17 at 09:00; Stop 10/06/17 at 08:59 Atorvastatin Calcium (Lipitor) 20 mg QHS PO Last administered on 09/27/17 21: 47; Start 09/01/17 at 21:00; Stop 10/01/17 at 20:59 Atorvastatin Calcium (Lipitor) 40 mg QHS PO Last administered on 08/24/17 21: 19; Start 08/19/17 at 21:00; Stop 08/25/17 at 07:59; Status DC Chlorhexidine Gluconate (Chlorhexidine Gluconate) SWAB/BRUSH ORAL CAVITY BID MT ; Start 08/16/17 at 09:00; Stop 08/16/17 at 10:41; Status DC Cod Liver Oil/ Zinc Oxide (Desitin) APPLY TO right side abd wall BID TOP Last administered on 09/19/17 10:37; Start 09/08/17 at 09:00; Stop 09/19/17 at 18: 18; Status DC Cyclobenzaprine HCl (Flexeril) 10 mg DAILY PRN PO MUSCLE SPASMS; Start at 09:30; Stop 08/27/17 at 09:26; Status DC Diphenhydramine HCl (Benadryl) 12.5 mg Q4HP PRN IV ITCHING; Start 08/23/17 at 18:00; Stop 09/01/17 at 09:20; Status DC Diphenhydramine HCl (Benadryl) 12.5 mg Q4HP PRN IV ITCHING; Start 08/17/17 at 08:00; Stop 08/20/17 at 11:37; Status DC Enoxaparin Sodium (Lovenox) 40 mg DAILY SC Last administered on 08/20/17 08:54 ; Start 08/16/17 at 09:00; Stop 08/21/17 at 19:37; Status DC Enoxaparin Sodium (Lovenox) 40 mg DAILY@2100 SC Last administered on 21:47; Start 08/21/17 at 21:00; Stop 10/02/17 at 20:59 Ertapenem 1 gm/ Sodium Chloride 50 ml @ 100 mls/hr Q24H IV Last administered on 09/11/17 17:26; Start 09/03/17 at 17:00; Stop 09/12/17 at 08:45; Status DC Ertapenem 1 gm/ Sodium Chloride 50 ml @ 100 mls/hr Q24H IV Last administered on 08/29/17 17:42; Start 08/16/17 at 17:00; Stop 08/30/17 at 14:33; Status DC Fat Emulsion Intravenous 500 ml @ 20 mls/hr ONCE@1800 IV Last administered on 08/24/17 17:49; Start 08/24/17 at 18:00; Stop 08/25/17 at 17:59; Status DC Fat Emulsion Intravenous 500 ml @ 20 mls/hr ONCE@1800 IV Last administered on 08/25/17 17:14; Start 08/25/17 at 18:00; Stop 08/26/17 at 17:59; Status DC Fat Emulsion Intravenous 500 ml @ 20 mls/hr ONCE@1800 IV Last administered on 08/26/17 17:37; Start 08/26/17 at 18:00; Stop 08/27/17 at 17:59; Status DC Fat Emulsion Intravenous 500 ml @ 20 mls/hr ONCE@1800 IV Last administered on 08/27/17 17:39; Start 08/27/17 at 18:00; Stop 08/28/17 at 17:59; Status DC Fat Emulsion Intravenous 500 ml @ 20 mls/hr ONCE@1800 IV Last administered on 08/28/17 18:05; Start 08/28/17 at 18:00; Stop 08/29/17 at 17:59; Status DC Fat Emulsion Intravenous 500 ml @ 20 mls/hr ONCE@1800 IV Last administered on 08/29/17 17:42; Start 08/29/17 at 18:00; Stop 08/30/17 at 17:59; Status DC Fat Emulsion Intravenous 500 ml @ 20 mls/hr ONCE@1800 IV Last administered on 08/30/17 18:35; Start 08/30/17 at 18:00; Stop 08/31/17 at 17:59; Status DC Fentanyl Citrate (Sublimaze) 25 mcg Q5MP PRN IV MODERATE PAIN (PS 4-7) Last administered on 08/23/17 18:46; Start 08/23/17 at 18:30; Stop 08/23/17 at 19 :30; Status DC Fentanyl Citrate (Sublimaze) 25 mcg Q5MP PRN IV MODERATE PAIN (PS 4-7); Start 08/16/17 at 00:00; Stop 08/16/17 at 01:15; Status DC Fluconazole 100 mg/IV Miscellaneous Supplies 50 ml @ 50 mls/hr Q24H IV Last administered on 09/11/17 18:00; Start 08/24/17 at 18:00; Stop 09/12/17 at 08: 45; Status DC Heparin Sodium (Heparin (Flush)) 200 units ASDIRECTED PRN IV SEE LABEL COMMENTS Last administered on 09/18/17 21:37; Start 08/24/17 at 12:15; Stop 09/21/17 at 22:10; Status DC Heparin Sodium (Heparin (Flush)) 200 units PICC IV Last administered on 17:38; Start 08/24/17 at 18:00; Stop 09/21/17 at 22:10; Status DC Heparin Sodium (Heparin Lock Flush 10units/ml) 10 units ASDIRECTED PRN IV SEE LABEL COMMENTS; Start 08/20/17 at 20:45; Stop 08/21/17 at 14:31; Status DC Heparin Sodium (Heparin Lock Flush 10units/ml) 10 units HLF IV Last administered on 08/21/17 05:13; Start 08/20/17 at 22:00; Stop 08/21/17 at 14: 31; Status DC Home Med (Med Rec Complete!) ASDIRECTED XX ; Start 08/15/17 at 16:15; Stop 08/15/17 at 16:15; Status DC Influenza Virus Vaccine (Fluzone High Dose) 0.5 ml ASDIRECTED IM Last administered on 08/19/17 10:15; Start 08/16/17 at 11:15; Stop 08/19/17 at 14:14 ; Status DC Insulin Human Lispro (HumaLOG INSULIN) See Protocol Table Q6H SC Last administered on 08/25/17 11:50; Start 08/24/17 at 18:00; Stop 08/25/17 at 12 :01; Status DC Insulin Human Lispro (HumaLOG INSULIN) See Protocol Table Q6H SC Last administered on 08/26/17 11:40; Start 08/25/17 at 18:00; Stop 08/26/17 at 12 :01; Status DC Insulin Human Lispro (HumaLOG INSULIN) See Protocol Table Q6H SC Last administered on 08/27/17 12:09; Start 08/26/17 at 18:00; Stop 08/27/17 at 12 :01; Status DC Insulin Human Lispro (HumaLOG INSULIN) See Protocol Table Q6H SC Last administered on 08/28/17 12:15; Start 08/27/17 at 18:00; Stop 08/28/17 at 12 :01; Status DC Insulin Human Lispro (HumaLOG INSULIN) See Protocol Table Q6H SC Last administered on 08/29/17 12:33; Start 08/28/17 at 18:00; Stop 08/29/17 at 15 :00; Status DC Insulin Human Lispro (HumaLOG INSULIN) See Protocol Table Q6H SC Last administered on 08/30/17 13:25; Start 08/29/17 at 18:00; Stop 08/30/17 at 12 :01; Status DC Insulin Human Lispro (HumaLOG INSULIN) See Protocol Table Q6H SC Last administered on 08/31/17 11:43; Start 08/30/17 at 18:00; Stop 08/31/17 at 15 :00; Status DC Isosorbide Mononitrate (Imdur) 30 mg DAILY PO Last administered on 09/28/17 08:48; Start 08/19/17 at 09:00; Stop 10/17/17 at 08:59 Lactated Ringer's 1,000 ml @ 100 mls/hr Q10H IV ; Start 08/23/17 at 18:30; Stop 08/23/17 at 19:30; Status DC Lactated Ringer's 1,000 ml @ 100 mls/hr Q10H IV Last administered on 08:54; Start 08/15/17 at 17:00; Stop 08/20/17 at 11:37; Status DC Lactated Ringer's 1,000 ml @ 100 mls/hr Q10H IV ; Start 08/16/17 at 00:00; Stop 08/16/17 at 01:15; Status DC Lactated Ringer's 1,000 ml @ 100 mls/hr Q10H IV ; Start 09/20/17 at 13:15; Stop 09/20/17 at 14:15; Status DC Lactated Ringer's 1,000 ml @ 200 mls/hr Q5H IV Last administered on 04:00; Start 08/22/17 at 18:00; Stop 08/24/17 at 07:46; Status DC Levofloxacin (Levaquin) 500 mg DAILY@06 PO Last administered on 09/18/17 05:08 ; Start 09/12/17 at 06:00; Stop 09/18/17 at 21:55; Status DC Lidocaine HCl (LIDOCAINE 1% MDV 50ml) 10 ml ASDIRECTED SC Last administered on 09/12/17 14:30; Start 09/12/17 at 14:30; Stop 09/12/17 at 14:31; Status DC Magnesium Hydroxide (Milk Of Magnesia) 30 ml DAILYPRN PRN PO CONSTIPATION; Start 08/15/17 at 23:15; Stop 08/25/17 at 07:59; Status DC Metoprolol Tartrate (Lopressor) 25 mg BID PO Last administered on 09/03/17 21 :04; Start 08/15/17 at 21:00; Stop 09/04/17 at 07:48; Status DC Metoprolol Tartrate (Lopressor) 25 mg Q8H PO Last administered on 09/28/17 06 :42; Start 09/04/17 at 06:00; Stop 10/04/17 at 05:59 Midazolam HCl (Versed) 2 mg Q15MP PRN IV AGITATION Last administered on 05:04; Start 08/16/17 at 00:00; Stop 08/16/17 at 10:41; Status DC Miscellaneous (Unresolved Clarification Entry) SEE LABEL COMMENTS UNRESOLVED XX ; Start 08/21/17 at 00:01; Stop 08/21/17 at 19:37; Status DC Morphine Sulfate (Morphine Sulfate In 0.9%Nacl Iv Bag) Concentration 1 mg/ml ASDIRECTED PRN IV SEE LABEL COMMENTS Last administered on 08/31/17 10:45; Start 08/23/17 at 18:00; Stop 09/01/17 at 09:20; Status DC Morphine Sulfate (Morphine Sulfate In 0.9%Nacl Iv Bag) Concentration 1 mg/ml ASDIRECTED PRN IV SEE LABEL COMMENTS Last administered on 08/18/17 18:52; Start 08/17/17 at 08:00; Stop 08/20/17 at 11:37; Status DC Morphine Sulfate (Morphine Sulfate Inj) 2 mg Q2HP PRN IV BREAKTHROUGH PAIN Last administered on 09/20/17 01:46; Start 09/01/17 at 09:30; Stop 09/21/17 at 17:47; Status DC Morphine Sulfate (Morphine Sulfate Inj) 2 mg Q2HP PRN IV PAIN Last administered on 08/17/17 06:42; Start 08/16/17 at 00:00; Stop 08/17/17 at 07:53 ; Status DC Morphine Sulfate (Morphine Sulfate Inj) 4 mg Q1H PRN IV SEVERE PAIN (PS 8-10); Start 08/15/17 at 23:15; Stop 08/15/17 at 23:53; Status DC Morphine Sulfate (Morphine Sulfate Inj) 4 mg Q4HP PRN IV SEVERE PAIN (PS 8-10) Last administered on 08/23/17 09:18; Start 08/20/17 at 11:45; Stop 08/23/17 at 17:57; Status DC Multivitamins (Theragram-M) 1 tab DAILY PO Last administered on 08/24/17 08: 29; Start 08/19/17 at 09:00; Stop 08/25/17 at 07:59; Status DC Multivitamins 10 ml/Chromium/ Copper/Manganese/ Seleni/Zn 1 ml/ Amino Ac/ Electrol/ Dextrose/Calcium 2,011 ml @ 50 mls/hr ONCE@1800 IV Last administered on 08/27/17 17:39; Start 08/27/17 at 18:00; Stop 08/28/17 at 17 :59; Status DC Multivitamins 10 ml/Chromium/ Copper/Manganese/ Seleni/Zn 1 ml/ Amino Ac/ Electrol/ Dextrose/Calcium 2,011 ml @ 50 mls/hr ONCE@1800 IV Last administered on 08/29/17 17:42; Start 08/29/17 at 18:00; Stop 08/30/17 at 17 :59; Status DC Multivitamins 10 ml/Chromium/ Copper/Manganese/ Seleni/Zn 1 ml/ Amino Ac/ Electrol/ Dextrose/Calcium 2,011 ml @ 85 mls/hr ONCE@1800 IV Last administered on 08/24/17 17:49; Start 08/24/17 at 18:00; Stop 08/25/17 at 17 :59; Status DC Nalbuphine HCl (Nubain) 2.5 mg Q6HP PRN IV PRURITIS; Start 08/23/17 at 18:00; Stop 09/01/17 at 09:20; Status DC Nalbuphine HCl (Nubain) 2.5 mg Q6HP PRN IV PRURITIS; Start 08/17/17 at 08:00; Stop 08/20/17 at 11:37; Status DC Naloxone HCl (Narcan) 0.1 mg Q5MP PRN IV SEE LABEL COMMENTS; Start 08/23/17 at 18:00; Stop 09/01/17 at 09:20; Status DC Naloxone HCl (Narcan) 0.1 mg Q5MP PRN IV SEE LABEL COMMENTS; Start 08/17/17 at 08:00; Stop 08/20/17 at 11:37; Status DC Nitroglycerin (Nitrostat (1/ 150)) 0.4 mg Q5MP PRN SL CHEST PAIN Last administered on 09/14/17 10:43; Start 08/19/17 at 09:30; Stop 10/17/17 at 09:29 Non-Formulary Medication (Epidural/WOOL CLEANER [place]) USE THIS ENTRY TO VEND ... Q1M PRN XX SEE LABEL COMMENTS; Start 08/23/17 at 18:00; Stop 09/01/17 at 09:20; Status DC Non-Formulary Medication (Epidural/WOOL CLEANER [place]) USE THIS ENTRY TO VEND ... Q1M PRN XX SEE LABEL COMMENTS; Start 08/17/17 at 08:00; Stop 08/20/17 at 11:37; Status DC Octreotide Acetate (SandoSTATIN) 100 mcg Q8H SC Last administered on 05:03; Start 08/20/17 at 14:00; Stop 08/24/17 at 07:37; Status DC Octreotide Acetate (SandoSTATIN) 200 mcg Q8H SC Last administered on 05:23; Start 08/24/17 at 14:00; Stop 08/29/17 at 09:05; Status DC Octreotide Acetate (SandoSTATIN) 200 mcg Q8H SC Last administered on 09/18/17 13:37; Start 09/07/17 at 14:00; Stop 09/18/17 at 21:55; Status DC Ondansetron HCl (ZOFRAN INJection) 4 mg Q4HP PRN IV NAUSEA OR VOMITING; Start 08/23/17 at 18:30; Stop 08/23/17 at 19:30; Status DC Ondansetron HCl (ZOFRAN INJection) 4 mg Q4HP PRN IV NAUSEA OR VOMITING; Start 08/16/17 at 00:00; Stop 08/16/17 at 01:15; Status DC Ondansetron HCl (ZOFRAN INJection) 4 mg Q4HP PRN IV NAUSEA OR VOMITING; Start 09/20/17 at 13:15; Stop 09/20/17 at 14:15; Status DC Ondansetron HCl (ZOFRAN INJection) 4 mg Q6HP PRN IV NAUSEA; Start 08/23/17 at 18:00; Stop 09/01/17 at 09:20; Status DC Ondansetron HCl (ZOFRAN INJection) 4 mg Q6HP PRN IV NAUSEA OR VOMITING; Start 08/15/17 at 23:15; Stop 08/27/17 at 09:26; Status DC Ondansetron HCl (ZOFRAN INJection) 4 mg Q6HP PRN IV NAUSEA; Start 08/17/17 at 08:00; Stop 08/20/17 at 11:37; Status DC Pantoprazole Sodium (Protonix) 40 mg BID IV Last administered on 09/19/17 10: 37; Start 08/23/17 at 21:00; Stop 09/19/17 at 18:18; Status DC Pantoprazole Sodium (Protonix) 40 mg BID IV Last administered on 08/23/17 09: 34; Start 08/16/17 at 09:00; Stop 08/23/17 at 17:56; Status DC Pantoprazole Sodium (Protonix) 40 mg BID PO Last administered on 09/28/17 08: 47; Start 09/19/17 at 21:00; Stop 10/19/17 at 20:59 Phenol (Chloraseptic (Cepacol)) 1 spray Q2HP PRN MT SORE THROAT; Start at 15:45; Stop 09/18/17 at 21:55; Status DC Pneumococcal Polyvalent Vaccine (Prevnar 13) 0.5 ml ASDIRECTED IM Last administered on 08/19/17 10:16; Start 08/16/17 at 11:15; Stop 08/19/17 at 14:14 ; Status DC Propofol 1000 mg/ IV Miscellaneous Supplies 100 ml @ 6.68 mls/hr [id number] IV Last administered on 08/16/17 05:22; Start 08/15/17 at 23:47; Stop 08/16/17 at 10:41; Status DC Sodium Chloride 1,000 ml @ 15 mls/hr Q24H IV ; Start 08/23/17 at 17:53; Stop 08/24/17 at 07:51; Status DC Sodium Chloride 1,000 ml @ 15 mls/hr Q24H IV ; Start 08/17/17 at 07:49; Stop 08/17/17 at 07:55; Status DC Sodium Chloride 1,000 ml @ 30 mls/hr Q24H IV Last administered on 08/31/17 17:17; Start 08/24/17 at 18:00; Stop 09/03/17 at 01:57; Status DC Sodium Chloride 1,000 ml @ 200 mls/hr Q5H IV Last administered on 08/24/17 14:00; Start 08/24/17 at 07:45; Stop 08/24/17 at 17:21; Status DC Sodium Chloride (Saline Lock Flush) 10 ml ASDIRECTED PRN IV SEE LABEL COMMENTS Last administered on 09/12/17 17:59; Start 08/24/17 at 12:15; Stop 09/21/17 at 22:10; Status DC Sodium Chloride (Saline Lock Flush) 10 ml ASDIRECTED PRN IV SEE LABEL COMMENTS ; Start 08/20/17 at 20:45; Stop 08/21/17 at 14:31; Status DC Sodium Chloride (Saline Lock Flush) 10 ml PICC IV Last administered on 17:38; Start 08/24/17 at 18:00; Stop 09/21/17 at 22:10; Status DC Sodium Chloride (Saline Lock Flush) 10 ml SLF IV Last administered on 05:13; Start 08/20/17 at 22:00; Stop 08/21/17 at 14:31; Status DC Sucralfate (Carafate Suspension) 1 gm Q6H GT Last administered on 09/18/17 17: 26; Start 09/09/17 at 12:00; Stop 09/18/17 at 21:55; Status DC Vitamin D (Vitamin D) 1,000 units DAILY PO Last administered on 08/23/17 09: 36; Start 08/19/17 at 09:00; Stop 08/23/17 at 20:45; Status DC Zolpidem Tartrate (Ambien) 2.5 mg QHS PRN PO INSOMNIA Last administered on 21:47; Start 09/01/17 at 18:15; Stop 10/02/17 at 18:14 Allergies Coded Allergies: Penicillins (Verified Adverse Reaction, Intermediate, STOMACH ULCERS MANY YEARS AGO, 09/03/17) Objective Physical Examination Examination GENERAL APPEARANCE:Patient seen, laying in bed, awake, alert, and oriented. Comfortable, in no acute distress. SKIN: Warm and moist. HEENT: Normocephalic, atraumatic. Mild pale palpebral conjunctiva, anicteric sclerae. Lips and mucosa appear moist. NECK: Supple, no thyromegaly. No obvious jugular venous distention. LUNGS: Clear to auscultation bilaterally. No wheezing appreciated. HEART: No chest wall abnormalities. Regular rate and rhythm with no murmurs appreciated. ABDOMEN: Abdomen is round, soft, and nondistended. Midline incision has healed except for a small 1-1 cm portion on the top part of the incision which is being packed. There is some mild intermittent light green drainage. Left side has the gastrostomy tube that is capped and a jejunostomy tube. Right side has a wound defect over a dual term keeping a seal on a small part of the YORDY drain with the tube secured to the abdomen. EXTREMITIES: Extremities have no deformities. No edema identified. 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 He still has a duodenal fistula maybe this is leaking a little bit into the midline wound but so far appears controlled and patient is not showing any signs of sepsis. He still puts out anywhere between 200-300 ML's of bilious fluid daily. We are expecting that he can go home by Sunday once the application for the wound VAC is approved. Plan / VTE VTE Prophylaxis Ordered?: Yes Plan / Urinary Catheter Urinary Catheter: D/C [place] Reason for insertion/continuin: Critical Pt monitoring ORA SIMPSON MD Sep 28, 2017 10:56
[2017-09-28 14:00] VITALS: BP 116/59
[2017-09-28] MEDS: ATORVASTATIN 20 MG TAB PO SCH (20:00)
[2017-09-28] MEDS: ENOXAPARIN 40 MG/0.4 ML SYRINGE (J1650) SC SCH (20:00)
[2017-09-28 22:00] VITALS: BP 116/63
[2017-09-28] MEDS: zolPIDEM TARTRATE 5 MG TAB PO PRN (22:23)
[2017-09-29] MEDS: NORCO, ANEXSIA 5/325MG TABLET (HYDROcodone/ACETAMINOPHEN) PO PRN ×2 (02:22→18:24)
[2017-09-29 06:00] VITALS: BP 109/59
[2017-09-29] MEDS: METOPROLOL TART 25 MG TABLET PO SCH ×3 (06:49→22:27)
[2017-09-29] MEDS: IPRATROPIUM 0.5MG/ALBUTEROL 2.5MG INH SOL UD 3ML (DUONEB)(J7620) NEB SCH ×4 (07:09→20:12)
[2017-09-29] MEDS: ASPIRIN 81 MG ENTERIC TAB PO SCH (09:14)
[2017-09-29] MEDS: PANTOPRAZOLE 40MG TAB (PROTONIX) PO SCH ×2 (09:14→22:26)
[2017-09-29] MEDS: ISOSORBIDE MON. (IMDUR) 30 MG XR TAB PO SCH (09:16)
[2017-09-29 22:00] VITALS: BP 113/58
[2017-09-29] MEDS: ENOXAPARIN 40 MG/0.4 ML SYRINGE (J1650) SC SCH (22:26)
[2017-09-29] MEDS: ATORVASTATIN 20 MG TAB PO SCH (22:26)
[2017-09-30 06:00] VITALS: BP 126/60
[2017-09-30] MEDS: METOPROLOL TART 25 MG TABLET PO SCH ×3 (06:00→21:51)
[2017-09-30] MEDS: IPRATROPIUM 0.5MG/ALBUTEROL 2.5MG INH SOL UD 3ML (DUONEB)(J7620) NEB SCH ×4 (07:05→20:00)
[2017-09-30] MEDS: NORCO, ANEXSIA 5/325MG TABLET (HYDROcodone/ACETAMINOPHEN) PO PRN ×2 (07:09→22:36)
[2017-09-30] MEDS: ISOSORBIDE MON. (IMDUR) 30 MG XR TAB PO SCH (09:00)
[2017-09-30] MEDS: PANTOPRAZOLE 40MG TAB (PROTONIX) PO SCH ×2 (09:00→21:51)
[2017-09-30] MEDS: ASPIRIN 81 MG ENTERIC TAB PO SCH (09:00)
[2017-09-30 14:00] VITALS: BP 117/60
[2017-09-30] MEDS: ENOXAPARIN 40 MG/0.4 ML SYRINGE (J1650) SC SCH (21:51)
[2017-09-30] MEDS: ATORVASTATIN 20 MG TAB PO SCH (21:51)
[2017-10-01 06:00] VITALS: BP 114/61
[2017-10-01] MEDS: METOPROLOL TART 25 MG TABLET PO SCH ×3 (06:14→21:12)
[2017-10-01] MEDS: IPRATROPIUM 0.5MG/ALBUTEROL 2.5MG INH SOL UD 3ML (DUONEB)(J7620) NEB SCH ×4 (07:59→20:00)
[2017-10-01] MEDS: ASPIRIN 81 MG ENTERIC TAB PO SCH (08:34)
[2017-10-01] MEDS: ISOSORBIDE MON. (IMDUR) 30 MG XR TAB PO SCH (08:34)
[2017-10-01] MEDS: PANTOPRAZOLE 40MG TAB (PROTONIX) PO SCH ×2 (08:34→21:12)
[2017-10-01] MEDS: NORCO, ANEXSIA 5/325MG TABLET (HYDROcodone/ACETAMINOPHEN) PO PRN ×2 (10:40→17:22)
[2017-10-01] MEDS ORDERED: NORCOTAB PO (10:52)
[2017-10-01] MEDS ORDERED: PANT40TA2 PO (10:52)
[2017-10-01 14:00] VITALS: BP 116/63
--- NOTE | 2017-10-01 14:49 | IPNPDOC ---
Subjective General Date/Time Seen The patient was seen on 10/01/17 at 14:46. Subject Chief Complaint/History The patient is a 66-year-old male admitted with a reason for visit of Perforated Duodenal Ulcer. Events over the weekend. The wound VAC set up seems to be working throughout the weekend. The foam seems to smell a bit. She seems to be draining about 300 ML's every 2 days from the wound VAC. Patient denies any discomfort. He seems to be able to finish a whole meal at least once a day and half a meal the rest of the day. Current Medications Current Medications Current Medications Acetaminophen (Tylenol Tab) 650 mg Q4HP PRN PO MILD PAIN or TEMP > 101 Last administered on 09/23/17 03:00; Start 08/15/17 at 23:15; Stop 10/13/17 at 23: 14 Acetaminophen/ Hydrocodone Bitart ([place], Anexsia 5/325) 1 tab Q4HP PRN PO MILD /MODERATE PAIN (PS 1-7); Start 08/20/17 at 11:45; Stop 08/23/17 at 20:45; Status DC Acetaminophen/ Hydrocodone Bitart ([place], Anexsia 5/325) 2 tab Q4HP PRN PO SEVERE PAIN (PS 8-10) Last administered on 08/23/17 05:56; Start 08/20/17 at 11:45; Stop 08/23/17 at 20:45; Status DC Acetaminophen/ Hydrocodone Bitart ([place], Anexsia 5/325) 2 tab Q6HP PRN PO SEVERE PAIN (PS 8-10) Last administered on 10/01/17 10:40; Start 09/01/17 at 09:30; Stop 10/02/17 at 09:29 Albuterol Sulfate (Proventil Neb) 2.5 mg Q2HP PRN NEB SHORTNESS OF BREATH; Start 08/16/17 at 00:00; Stop 08/27/17 at 09:26; Status DC Albuterol/ Ipratropium (Duoneb (Ipr 0.5mg/Alb 2.5mg)) 3 ml RQ4H NEB Last administered on 08/16/17 09:25; Start 08/16/17 at 00:00; Stop 08/16/17 at 10:43 ; Status DC Albuterol/ Ipratropium (Duoneb (Ipr 0.5mg/Alb 2.5mg)) 3 ml RQID NEB Last administered on 09/30/17 15:23; Start 08/16/17 at 12:00; Stop 10/14/17 at 11: 59 Amino Ac/Electrol/ Dextrose/Calcium 2,000 ml @ 50 mls/hr ONCE@1800 IV Last administered on 08/28/17 18:06; Start 08/28/17 at 18:00; Stop 08/29/17 at 17 :59; Status DC Amino Ac/Electrol/ Dextrose/Calcium 2,000 ml @ 50 mls/hr ONCE@1800 IV Last administered on 08/30/17 18:35; Start 08/30/17 at 18:00; Stop 08/31/17 at 17 :59; Status DC Amino Ac/Electrol/ Dextrose/Calcium 2,000 ml @ 75 mls/hr ONCE@1800 IV Last administered on 08/25/17 17:15; Start 08/25/17 at 18:00; Stop 08/26/17 at 17 :59; Status DC Amino Ac/Electrol/ Dextrose/Calcium 2,000 ml @ 75 mls/hr ONCE@1800 IV Last administered on 08/26/17 17:38; Start 08/26/17 at 18:00; Stop 08/27/17 at 17 :59; Status DC Aspirin (Ecotrin) 81 mg DAILY PO Last administered on 10/01/17 08:34; Start 09/06/17 at 09:00; Stop 10/06/17 at 08:59 Atorvastatin Calcium (Lipitor) 20 mg QHS PO Last administered on 09/30/17 21: 51; Start 09/01/17 at 21:00; Stop 10/01/17 at 20:59 Atorvastatin Calcium (Lipitor) 40 mg QHS PO Last administered on 08/24/17 21: 19; Start 08/19/17 at 21:00; Stop 08/25/17 at 07:59; Status DC Chlorhexidine Gluconate (Chlorhexidine Gluconate) SWAB/BRUSH ORAL CAVITY BID MT ; Start 08/16/17 at 09:00; Stop 08/16/17 at 10:41; Status DC Cod Liver Oil/ Zinc Oxide (Desitin) APPLY TO right side abd wall BID TOP Last administered on 09/19/17 10:37; Start 09/08/17 at 09:00; Stop 09/19/17 at 18: 18; Status DC Cyclobenzaprine HCl (Flexeril) 10 mg DAILY PRN PO MUSCLE SPASMS; Start at 09:30; Stop 08/27/17 at 09:26; Status DC Diphenhydramine HCl (Benadryl) 12.5 mg Q4HP PRN IV ITCHING; Start 08/23/17 at 18:00; Stop 09/01/17 at 09:20; Status DC Diphenhydramine HCl (Benadryl) 12.5 mg Q4HP PRN IV ITCHING; Start 08/17/17 at 08:00; Stop 08/20/17 at 11:37; Status DC Enoxaparin Sodium (Lovenox) 40 mg DAILY SC Last administered on 08/20/17 08:54 ; Start 08/16/17 at 09:00; Stop 08/21/17 at 19:37; Status DC Enoxaparin Sodium (Lovenox) 40 mg DAILY@2100 SC Last administered on 21:51; Start 08/21/17 at 21:00; Stop 10/02/17 at 20:59 Ertapenem 1 gm/ Sodium Chloride 50 ml @ 100 mls/hr Q24H IV Last administered on 09/11/17 17:26; Start 09/03/17 at 17:00; Stop 09/12/17 at 08:45; Status DC Ertapenem 1 gm/ Sodium Chloride 50 ml @ 100 mls/hr Q24H IV Last administered on 08/29/17 17:42; Start 08/16/17 at 17:00; Stop 08/30/17 at 14:33; Status DC Fat Emulsion Intravenous 500 ml @ 20 mls/hr ONCE@1800 IV Last administered on 08/24/17 17:49; Start 08/24/17 at 18:00; Stop 08/25/17 at 17:59; Status DC Fat Emulsion Intravenous 500 ml @ 20 mls/hr ONCE@1800 IV Last administered on 08/25/17 17:14; Start 08/25/17 at 18:00; Stop 08/26/17 at 17:59; Status DC Fat Emulsion Intravenous 500 ml @ 20 mls/hr ONCE@1800 IV Last administered on 08/26/17 17:37; Start 08/26/17 at 18:00; Stop 08/27/17 at 17:59; Status DC Fat Emulsion Intravenous 500 ml @ 20 mls/hr ONCE@1800 IV Last administered on 08/27/17 17:39; Start 08/27/17 at 18:00; Stop 08/28/17 at 17:59; Status DC Fat Emulsion Intravenous 500 ml @ 20 mls/hr ONCE@1800 IV Last administered on 08/28/17 18:05; Start 08/28/17 at 18:00; Stop 08/29/17 at 17:59; Status DC Fat Emulsion Intravenous 500 ml @ 20 mls/hr ONCE@1800 IV Last administered on 08/29/17 17:42; Start 08/29/17 at 18:00; Stop 08/30/17 at 17:59; Status DC Fat Emulsion Intravenous 500 ml @ 20 mls/hr ONCE@1800 IV Last administered on 08/30/17 18:35; Start 08/30/17 at 18:00; Stop 08/31/17 at 17:59; Status DC Fentanyl Citrate (Sublimaze) 25 mcg Q5MP PRN IV MODERATE PAIN (PS 4-7) Last administered on 08/23/17 18:46; Start 08/23/17 at 18:30; Stop 08/23/17 at 19 :30; Status DC Fentanyl Citrate (Sublimaze) 25 mcg Q5MP PRN IV MODERATE PAIN (PS 4-7); Start 08/16/17 at 00:00; Stop 08/16/17 at 01:15; Status DC Fluconazole 100 mg/IV Miscellaneous Supplies 50 ml @ 50 mls/hr Q24H IV Last administered on 09/11/17 18:00; Start 08/24/17 at 18:00; Stop 09/12/17 at 08: 45; Status DC Heparin Sodium (Heparin (Flush)) 200 units ASDIRECTED PRN IV SEE LABEL COMMENTS Last administered on 09/18/17 21:37; Start 08/24/17 at 12:15; Stop 09/21/17 at 22:10; Status DC Heparin Sodium (Heparin (Flush)) 200 units PICC IV Last administered on 17:38; Start 08/24/17 at 18:00; Stop 09/21/17 at 22:10; Status DC Heparin Sodium (Heparin Lock Flush 10units/ml) 10 units ASDIRECTED PRN IV SEE LABEL COMMENTS; Start 08/20/17 at 20:45; Stop 08/21/17 at 14:31; Status DC Heparin Sodium (Heparin Lock Flush 10units/ml) 10 units HLF IV Last administered on 08/21/17 05:13; Start 08/20/17 at 22:00; Stop 08/21/17 at 14: 31; Status DC Home Med (Med Rec Complete!) ASDIRECTED XX ; Start 08/15/17 at 16:15; Stop 08/15/17 at 16:15; Status DC Influenza Virus Vaccine (Fluzone High Dose) 0.5 ml ASDIRECTED IM Last administered on 08/19/17 10:15; Start 08/16/17 at 11:15; Stop 08/19/17 at 14:14 ; Status DC Insulin Human Lispro (HumaLOG INSULIN) See Protocol Table Q6H SC Last administered on 08/25/17 11:50; Start 08/24/17 at 18:00; Stop 08/25/17 at 12 :01; Status DC Insulin Human Lispro (HumaLOG INSULIN) See Protocol Table Q6H SC Last administered on 08/26/17 11:40; Start 08/25/17 at 18:00; Stop 08/26/17 at 12 :01; Status DC Insulin Human Lispro (HumaLOG INSULIN) See Protocol Table Q6H SC Last administered on 08/27/17 12:09; Start 08/26/17 at 18:00; Stop 08/27/17 at 12 :01; Status DC Insulin Human Lispro (HumaLOG INSULIN) See Protocol Table Q6H SC Last administered on 08/28/17 12:15; Start 08/27/17 at 18:00; Stop 08/28/17 at 12 :01; Status DC Insulin Human Lispro (HumaLOG INSULIN) See Protocol Table Q6H SC Last administered on 08/29/17 12:33; Start 08/28/17 at 18:00; Stop 08/29/17 at 15 :00; Status DC Insulin Human Lispro (HumaLOG INSULIN) See Protocol Table Q6H SC Last administered on 08/30/17 13:25; Start 08/29/17 at 18:00; Stop 08/30/17 at 12 :01; Status DC Insulin Human Lispro (HumaLOG INSULIN) See Protocol Table Q6H SC Last administered on 08/31/17 11:43; Start 08/30/17 at 18:00; Stop 08/31/17 at 15 :00; Status DC Isosorbide Mononitrate (Imdur) 30 mg DAILY PO Last administered on 10/01/17 08:34; Start 08/19/17 at 09:00; Stop 10/17/17 at 08:59 Lactated Ringer's 1,000 ml @ 100 mls/hr Q10H IV ; Start 08/23/17 at 18:30; Stop 08/23/17 at 19:30; Status DC Lactated Ringer's 1,000 ml @ 100 mls/hr Q10H IV Last administered on 08:54; Start 08/15/17 at 17:00; Stop 08/20/17 at 11:37; Status DC Lactated Ringer's 1,000 ml @ 100 mls/hr Q10H IV ; Start 08/16/17 at 00:00; Stop 08/16/17 at 01:15; Status DC Lactated Ringer's 1,000 ml @ 100 mls/hr Q10H IV ; Start 09/20/17 at 13:15; Stop 09/20/17 at 14:15; Status DC Lactated Ringer's 1,000 ml @ 200 mls/hr Q5H IV Last administered on 04:00; Start 08/22/17 at 18:00; Stop 08/24/17 at 07:46; Status DC Levofloxacin (Levaquin) 500 mg DAILY@06 PO Last administered on 09/18/17 05:08 ; Start 09/12/17 at 06:00; Stop 09/18/17 at 21:55; Status DC Lidocaine HCl (LIDOCAINE 1% MDV 50ml) 10 ml ASDIRECTED SC Last administered on 09/12/17 14:30; Start 09/12/17 at 14:30; Stop 09/12/17 at 14:31; Status DC Magnesium Hydroxide (Milk Of Magnesia) 30 ml DAILYPRN PRN PO CONSTIPATION; Start 08/15/17 at 23:15; Stop 08/25/17 at 07:59; Status DC Metoprolol Tartrate (Lopressor) 25 mg BID PO Last administered on 09/03/17 21 :04; Start 08/15/17 at 21:00; Stop 09/04/17 at 07:48; Status DC Metoprolol Tartrate (Lopressor) 25 mg Q8H PO Last administered on 10/01/17 06 :14; Start 09/04/17 at 06:00; Stop 10/04/17 at 05:59 Midazolam HCl (Versed) 2 mg Q15MP PRN IV AGITATION Last administered on 05:04; Start 08/16/17 at 00:00; Stop 08/16/17 at 10:41; Status DC Miscellaneous (Unresolved Clarification Entry) SEE LABEL COMMENTS UNRESOLVED XX ; Start 08/21/17 at 00:01; Stop 08/21/17 at 19:37; Status DC Morphine Sulfate (Morphine Sulfate In 0.9%Nacl Iv Bag) Concentration 1 mg/ml ASDIRECTED PRN IV SEE LABEL COMMENTS Last administered on 08/31/17 10:45; Start 08/23/17 at 18:00; Stop 09/01/17 at 09:20; Status DC Morphine Sulfate (Morphine Sulfate In 0.9%Nacl Iv Bag) Concentration 1 mg/ml ASDIRECTED PRN IV SEE LABEL COMMENTS Last administered on 08/18/17 18:52; Start 08/17/17 at 08:00; Stop 08/20/17 at 11:37; Status DC Morphine Sulfate (Morphine Sulfate Inj) 2 mg Q2HP PRN IV BREAKTHROUGH PAIN Last administered on 09/20/17 01:46; Start 09/01/17 at 09:30; Stop 09/21/17 at 17:47; Status DC Morphine Sulfate (Morphine Sulfate Inj) 2 mg Q2HP PRN IV PAIN Last administered on 08/17/17 06:42; Start 08/16/17 at 00:00; Stop 08/17/17 at 07:53 ; Status DC Morphine Sulfate (Morphine Sulfate Inj) 4 mg Q1H PRN IV SEVERE PAIN (PS 8-10); Start 08/15/17 at 23:15; Stop 08/15/17 at 23:53; Status DC Morphine Sulfate (Morphine Sulfate Inj) 4 mg Q4HP PRN IV SEVERE PAIN (PS 8-10) Last administered on 08/23/17 09:18; Start 08/20/17 at 11:45; Stop 08/23/17 at 17:57; Status DC Multivitamins (Theragram-M) 1 tab DAILY PO Last administered on 08/24/17 08: 29; Start 08/19/17 at 09:00; Stop 08/25/17 at 07:59; Status DC Multivitamins 10 ml/Chromium/ Copper/Manganese/ Seleni/Zn 1 ml/ Amino Ac/ Electrol/ Dextrose/Calcium 2,011 ml @ 50 mls/hr ONCE@1800 IV Last administered on 08/27/17 17:39; Start 08/27/17 at 18:00; Stop 08/28/17 at 17 :59; Status DC Multivitamins 10 ml/Chromium/ Copper/Manganese/ Seleni/Zn 1 ml/ Amino Ac/ Electrol/ Dextrose/Calcium 2,011 ml @ 50 mls/hr ONCE@1800 IV Last administered on 08/29/17 17:42; Start 08/29/17 at 18:00; Stop 08/30/17 at 17 :59; Status DC Multivitamins 10 ml/Chromium/ Copper/Manganese/ Seleni/Zn 1 ml/ Amino Ac/ Electrol/ Dextrose/Calcium 2,011 ml @ 85 mls/hr ONCE@1800 IV Last administered on 08/24/17 17:49; Start 08/24/17 at 18:00; Stop 08/25/17 at 17 :59; Status DC Nalbuphine HCl (Nubain) 2.5 mg Q6HP PRN IV PRURITIS; Start 08/23/17 at 18:00; Stop 09/01/17 at 09:20; Status DC Nalbuphine HCl (Nubain) 2.5 mg Q6HP PRN IV PRURITIS; Start 08/17/17 at 08:00; Stop 08/20/17 at 11:37; Status DC Naloxone HCl (Narcan) 0.1 mg Q5MP PRN IV SEE LABEL COMMENTS; Start 08/23/17 at 18:00; Stop 09/01/17 at 09:20; Status DC Naloxone HCl (Narcan) 0.1 mg Q5MP PRN IV SEE LABEL COMMENTS; Start 08/17/17 at 08:00; Stop 08/20/17 at 11:37; Status DC Nitroglycerin (Nitrostat (1/ 150)) 0.4 mg Q5MP PRN SL CHEST PAIN Last administered on 09/14/17 10:43; Start 08/19/17 at 09:30; Stop 10/17/17 at 09:29 Non-Formulary Medication (Epidural/FREIGHT TALLIER Gracey) USE THIS ENTRY TO VEND ... Q1M PRN XX SEE LABEL COMMENTS; Start 08/23/17 at 18:00; Stop 09/01/17 at 09:20; Status DC Non-Formulary Medication (Epidural/FREIGHT TALLIER Gracey) USE THIS ENTRY TO VEND ... Q1M PRN XX SEE LABEL COMMENTS; Start 08/17/17 at 08:00; Stop 08/20/17 at 11:37; Status DC Octreotide Acetate (SandoSTATIN) 100 mcg Q8H SC Last administered on 05:03; Start 08/20/17 at 14:00; Stop 08/24/17 at 07:37; Status DC Octreotide Acetate (SandoSTATIN) 200 mcg Q8H SC Last administered on 05:23; Start 08/24/17 at 14:00; Stop 08/29/17 at 09:05; Status DC Octreotide Acetate (SandoSTATIN) 200 mcg Q8H SC Last administered on 09/18/17 13:37; Start 09/07/17 at 14:00; Stop 09/18/17 at 21:55; Status DC Ondansetron HCl (ZOFRAN INJection) 4 mg Q4HP PRN IV NAUSEA OR VOMITING; Start 08/23/17 at 18:30; Stop 08/23/17 at 19:30; Status DC Ondansetron HCl (ZOFRAN INJection) 4 mg Q4HP PRN IV NAUSEA OR VOMITING; Start 08/16/17 at 00:00; Stop 08/16/17 at 01:15; Status DC Ondansetron HCl (ZOFRAN INJection) 4 mg Q4HP PRN IV NAUSEA OR VOMITING; Start 09/20/17 at 13:15; Stop 09/20/17 at 14:15; Status DC Ondansetron HCl (ZOFRAN INJection) 4 mg Q6HP PRN IV NAUSEA; Start 08/23/17 at 18:00; Stop 09/01/17 at 09:20; Status DC Ondansetron HCl (ZOFRAN INJection) 4 mg Q6HP PRN IV NAUSEA OR VOMITING; Start 08/15/17 at 23:15; Stop 08/27/17 at 09:26; Status DC Ondansetron HCl (ZOFRAN INJection) 4 mg Q6HP PRN IV NAUSEA; Start 08/17/17 at 08:00; Stop 08/20/17 at 11:37; Status DC Pantoprazole Sodium (Protonix) 40 mg BID IV Last administered on 09/19/17 10: 37; Start 08/23/17 at 21:00; Stop 09/19/17 at 18:18; Status DC Pantoprazole Sodium (Protonix) 40 mg BID IV Last administered on 08/23/17 09: 34; Start 08/16/17 at 09:00; Stop 08/23/17 at 17:56; Status DC Pantoprazole Sodium (Protonix) 40 mg BID PO Last administered on 10/01/17 08: 34; Start 09/19/17 at 21:00; Stop 10/19/17 at 20:59 Phenol (Chloraseptic (Cepacol)) 1 spray Q2HP PRN MT SORE THROAT; Start at 15:45; Stop 09/18/17 at 21:55; Status DC Pneumococcal Polyvalent Vaccine (Prevnar 13) 0.5 ml ASDIRECTED IM Last administered on 08/19/17 10:16; Start 08/16/17 at 11:15; Stop 08/19/17 at 14:14 ; Status DC Propofol 1000 mg/ IV Miscellaneous Supplies 100 ml @ 6.68 mls/hr [id number] IV Last administered on 08/16/17 05:22; Start 08/15/17 at 23:47; Stop 08/16/17 at 10:41; Status DC Sodium Chloride 1,000 ml @ 15 mls/hr Q24H IV ; Start 08/23/17 at 17:53; Stop 08/24/17 at 07:51; Status DC Sodium Chloride 1,000 ml @ 15 mls/hr Q24H IV ; Start 08/17/17 at 07:49; Stop 08/17/17 at 07:55; Status DC Sodium Chloride 1,000 ml @ 30 mls/hr Q24H IV Last administered on 08/31/17 17:17; Start 08/24/17 at 18:00; Stop 09/03/17 at 01:57; Status DC Sodium Chloride 1,000 ml @ 200 mls/hr Q5H IV Last administered on 08/24/17 14:00; Start 08/24/17 at 07:45; Stop 08/24/17 at 17:21; Status DC Sodium Chloride (Saline Lock Flush) 10 ml ASDIRECTED PRN IV SEE LABEL COMMENTS Last administered on 09/12/17 17:59; Start 08/24/17 at 12:15; Stop 09/21/17 at 22:10; Status DC Sodium Chloride (Saline Lock Flush) 10 ml ASDIRECTED PRN IV SEE LABEL COMMENTS ; Start 08/20/17 at 20:45; Stop 08/21/17 at 14:31; Status DC Sodium Chloride (Saline Lock Flush) 10 ml PICC IV Last administered on 17:38; Start 08/24/17 at 18:00; Stop 09/21/17 at 22:10; Status DC Sodium Chloride (Saline Lock Flush) 10 ml SLF IV Last administered on 05:13; Start 08/20/17 at 22:00; Stop 08/21/17 at 14:31; Status DC Sucralfate (Carafate Suspension) 1 gm Q6H GT Last administered on 09/18/17 17: 26; Start 09/09/17 at 12:00; Stop 09/18/17 at 21:55; Status DC Vitamin D (Vitamin D) 1,000 units DAILY PO Last administered on 08/23/17 09: 36; Start 08/19/17 at 09:00; Stop 08/23/17 at 20:45; Status DC Zolpidem Tartrate (Ambien) 2.5 mg QHS PRN PO INSOMNIA Last administered on 22:23; Start 09/01/17 at 18:15; Stop 10/02/17 at 18:14 Allergies Coded Allergies: Penicillins (Verified Adverse Reaction, Intermediate, STOMACH ULCERS MANY YEARS AGO, 09/03/17) Objective Physical Examination Examination GENERAL APPEARANCE:Patient seen, laying in bed, awake, alert, and oriented. Comfortable, in no acute distress. SKIN: Warm and moist. HEENT: Normocephalic, atraumatic. [place] palpebral conjunctiva, anicteric sclerae. Lips and mucosa appear moist. NECK: Supple, no thyromegaly. No obvious jugular venous distention. LUNGS: Clear to auscultation bilaterally. No wheezing appreciated. HEART: No chest wall abnormalities. Regular rate and rhythm with no murmurs appreciated. ABDOMEN: Abdomen is nondistended, soft, round. Right YORDY drain with only the hollow in place and sutured in place. No skin irritation. Not much drainage after removal of the wound VAC from the drain. Left side gastrostomy and jejunostomy tubes with minimal irritation of the skin exit sites. The midline incision has a small open portion of the superior portion which seems to be filling up accordingly.. EXTREMITIES: Extremities have no deformities. No edema identified. 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 I will slowly pulled back on the drain is hoping to induce fistula closure. Plan / VTE VTE Prophylaxis Ordered?: Yes Plan / Urinary Catheter Urinary Catheter: D/C Davis Reason for insertion/continuin: Critical Pt monitoring ORA SIMPSON MD Oct 01, 2017 14:49
[2017-10-01] MEDS: ATORVASTATIN 20 MG TAB PO SCH (21:12)
[2017-10-01] MEDS: ENOXAPARIN 40 MG/0.4 ML SYRINGE (J1650) SC SCH (21:12)
[2017-10-01 22:00] VITALS: BP 121/58
[2017-10-02] MEDS: zolPIDEM TARTRATE 5 MG TAB PO PRN ×2 (00:06→23:04)
[2017-10-02] MEDS: METOPROLOL TART 25 MG TABLET PO SCH ×4 (05:55→21:13)
[2017-10-02 06:00] VITALS: BP 121/60
[2017-10-02] MEDS: IPRATROPIUM 0.5MG/ALBUTEROL 2.5MG INH SOL UD 3ML (DUONEB)(J7620) NEB SCH ×4 (07:40→19:11)
[2017-10-02] MEDS: PANTOPRAZOLE 40MG TAB (PROTONIX) PO SCH ×2 (08:42→21:12)
[2017-10-02] MEDS: ASPIRIN 81 MG ENTERIC TAB PO SCH (08:42)
[2017-10-02] MEDS: ISOSORBIDE MON. (IMDUR) 30 MG XR TAB PO SCH (08:42)
[2017-10-02] MEDS: ACETAMINOPHEN TAB 650MG DOSE (2X325MG) PO PRN (08:42)
[2017-10-02 13:23] VITALS: BP 138/74
[2017-10-02 14:00] VITALS: BP 117/61
[2017-10-02] MEDS: ENOXAPARIN 40 MG/0.4 ML SYRINGE (J1650) SC SCH (21:12)
[2017-10-02] MEDS: NORCO, ANEXSIA 5/325MG TABLET (HYDROcodone/ACETAMINOPHEN) PO PRN (21:12)
[2017-10-02] MEDS: ATORVASTATIN 20 MG TAB PO SCH (21:12)
[2017-10-02 22:00] VITALS: BP 121/70
[2017-10-03 06:00] VITALS: BP 118/61
[2017-10-03] MEDS: METOPROLOL TART 25 MG TABLET PO SCH ×3 (06:18→21:23)
[2017-10-03] MEDS: IPRATROPIUM 0.5MG/ALBUTEROL 2.5MG INH SOL UD 3ML (DUONEB)(J7620) NEB SCH ×4 (07:38→19:57)
[2017-10-03] MEDS: PANTOPRAZOLE 40MG TAB (PROTONIX) PO SCH ×2 (10:30→21:22)
[2017-10-03] MEDS: ASPIRIN 81 MG ENTERIC TAB PO SCH (10:30)
[2017-10-03] MEDS: ISOSORBIDE MON. (IMDUR) 30 MG XR TAB PO SCH (10:30)
[2017-10-03] MEDS: NORCO, ANEXSIA 5/325MG TABLET (HYDROcodone/ACETAMINOPHEN) PO PRN (18:46)
[2017-10-03] MEDS: MORPHINE 2 MG/ML 1ML SYRINGE IV PRN ×2 (20:41→23:06)
[2017-10-03] MEDS: ENOXAPARIN 40 MG/0.4 ML SYRINGE (J1650) SC SCH (21:22)
[2017-10-03] MEDS: ATORVASTATIN 20 MG TAB PO SCH (21:22)
[2017-10-03] MEDS: zolPIDEM TARTRATE 5 MG TAB PO PRN (21:28)
[2017-10-03 22:00] VITALS: BP 126/88
[2017-10-03] MEDS ORDERED: MORPHINE 4 MG/ML 1ML SYRINGE IV ONE (23:45)
[2017-10-04] MEDS: NORCO, ANEXSIA 5/325MG TABLET (HYDROcodone/ACETAMINOPHEN) PO PRN ×2 (01:04→10:37)
[2017-10-04] MEDS: MORPHINE 2 MG/ML 1ML SYRINGE IV PRN ×4 (02:20→09:05)
[2017-10-04 06:00] VITALS: BP 147/80
[2017-10-04] MEDS: METOPROLOL TART 25 MG TABLET PO SCH ×3 (06:21→21:02)
[2017-10-04] MEDS: IPRATROPIUM 0.5MG/ALBUTEROL 2.5MG INH SOL UD 3ML (DUONEB)(J7620) NEB SCH ×4 (07:01→20:00)
[2017-10-04 08:00] VITALS: BP 132/74
[2017-10-04 08:24] LABS: BASO % 0.5 % (0.0-1.0); EOS % 0.4 % (0.0-3.0); IMMATURE GRANULOCYTE % 0.4 % (0-0); LYMPH # 1.5 10^3/uL (1.5-4.5); LYMPH % 17.7 % (24.0-44.0); MEAN CORPUSCULAR HEMOGLOBIN 30.9 pg (27.0-33.0); MEAN CORPUSCULAR VOLUME 93.9 fl (80.0-96.0); MONO # 0.6 10^3/uL (0.0-0.8); MONO % 7.6 % (0.0-5.0); NEUTROPHILS # 6.1 10^3/uL (1.8-7.7); NEUTROPHILS % 73.4 % (36.0-66.0); PLATELET COUNT, AUTOMATED 406 10^3/uL (150-450); RED CELL DISTRIBUTION WIDTH 15.1 % (11.5-14.5); WHITE BLOOD COUNT 8.3 10^3/uL (4.0-10.0)
[2017-10-04 08:47] LABS: ALBUMIN 2.6 GM/DL (3.2-5.2); ALBUMIN/GLOBULIN RATIO 0.53 (1.00-1.93); ALKALINE PHOSPHATASE 164 U/L (45-117); ALT/SGPT 65 U/L (12-78); ANION GAP 8 MEQ/L (8-16); AST/SGOT 36 U/L (7-37); BILIRUBIN,TOTAL 0.8 MG/DL (0.2-1.0); BLOOD UREA NITROGEN 20 MG/DL (7-18); CALCIUM LEVEL 9.3 MG/DL (8.8-10.2); CARBON DIOXIDE LEVEL 27 MEQ/L (21-32); CHLORIDE LEVEL 102 MEQ/L (98-107); CREATININE FOR GFR 1.12 MG/DL (0.70-1.30); GLOMERULAR FILTRATION RATE > 60.0 (>49); GLUCOSE, FASTING 103 MG/DL (80-110); POTASSIUM SERUM 3.9 MEQ/L (3.5-5.1); SODIUM LEVEL 137 MEQ/L (136-145); TOTAL PROTEIN 7.5 GM/DL (6.4-8.2)
--- NOTE | 2017-10-04 09:18 | REP ---
Clinical: Abdominal pain and vomiting. Technique: Portable supine view of the abdomen and pelvis. Findings: Bowel gas pattern is nonspecific. Drainage catheter in the right upper quadrant noted along with gastrostomy in satisfactory position. No organomegaly. No abnormal calcifications. Skeletal structures intact. Impression: Nonspecific bowel gas pattern Signed by Demarcus Green MD 10/04/2017 09:10 A
[2017-10-04] MEDS: PANTOPRAZOLE 40MG TAB (PROTONIX) PO SCH ×2 (10:36→20:59)
[2017-10-04] MEDS: ISOSORBIDE MON. (IMDUR) 30 MG XR TAB PO SCH (10:37)
[2017-10-04] MEDS: ASPIRIN 81 MG ENTERIC TAB PO SCH (10:37)
[2017-10-04] MEDS: ONDANSETRON 4MG/2ML VIAL (J2405) IV PRN (10:44)
[2017-10-04] MEDS ORDERED: MORPHINE 4 MG/ML 1ML SYRINGE IV PRN (11:00)
[2017-10-04] MEDS ORDERED: KETOROLAC 30 MG/ML VIAL (J1885) IV ONE (11:00)
--- NOTE | 2017-10-04 11:11 | IPNPDOC ---
Subjective General Date/Time Seen The patient was seen on 10/04/17 at 11:06. Subject Chief Complaint/History The patient is a 66-year-old male admitted with a reason for visit of Perforated Duodenal Ulcer. Patient complains of left side/flank pain overnight radiating to the left groin , nauseated. vomiting x 1. Gastrostomy tube placed back to [facility] and we got 900 mLs of bilious fluid overnight. Feels better but still complaining of left flank pain. Current Medications Current Medications Current Medications Acetaminophen (Tylenol Tab) 650 mg Q4HP PRN PO MILD PAIN or TEMP > 101 Last administered on 10/02/17 08:42; Start 08/15/17 at 23:15; Stop 10/13/17 at 23: 14 Acetaminophen/ Hydrocodone Bitart (Sedan, Anexsia 5/325) 1 tab Q4HP PRN PO MILD /MODERATE PAIN (PS 1-7); Start 08/20/17 at 11:45; Stop 08/23/17 at 20:45; Status DC Acetaminophen/ Hydrocodone Bitart (Sedan, Anexsia 5/325) 2 tab Q4HP PRN PO SEVERE PAIN (PS 8-10) Last administered on 08/23/17 05:56; Start 08/20/17 at 11:45; Stop 08/23/17 at 20:45; Status DC Acetaminophen/ Hydrocodone Bitart (Sedan, Anexsia 5/325) 2 tab Q4HP PRN PO SEVERE PAIN (PS 8-10); Start 10/04/17 at 11:00; Stop 10/08/17 at 09:29 Acetaminophen/ Hydrocodone Bitart (Sedan, Anexsia 5/325) 2 tab Q6HP PRN PO SEVERE PAIN (PS 8-10) Last administered on 10/04/17 10:37; Start 09/01/17 at 09:30; Stop 10/04/17 at 10:51; Status DC Albuterol Sulfate (Proventil Neb) 2.5 mg Q2HP PRN NEB SHORTNESS OF BREATH; Start 08/16/17 at 00:00; Stop 08/27/17 at 09:26; Status DC Albuterol/ Ipratropium (Duoneb (Ipr 0.5mg/Alb 2.5mg)) 3 ml RQ4H NEB Last administered on 08/16/17 09:25; Start 08/16/17 at 00:00; Stop 08/16/17 at 10:43 ; Status DC Albuterol/ Ipratropium (Duoneb (Ipr 0.5mg/Alb 2.5mg)) 3 ml RQID NEB Last administered on 10/03/17 11:16; Start 08/16/17 at 12:00; Stop 10/14/17 at 11: 59 Amino Ac/Electrol/ Dextrose/Calcium 2,000 ml @ 50 mls/hr ONCE@1800 IV Last administered on 08/28/17 18:06; Start 08/28/17 at 18:00; Stop 08/29/17 at 17 :59; Status DC Amino Ac/Electrol/ Dextrose/Calcium 2,000 ml @ 50 mls/hr ONCE@1800 IV Last administered on 08/30/17 18:35; Start 08/30/17 at 18:00; Stop 08/31/17 at 17 :59; Status DC Amino Ac/Electrol/ Dextrose/Calcium 2,000 ml @ 75 mls/hr ONCE@1800 IV Last administered on 08/25/17 17:15; Start 08/25/17 at 18:00; Stop 08/26/17 at 17 :59; Status DC Amino Ac/Electrol/ Dextrose/Calcium 2,000 ml @ 75 mls/hr ONCE@1800 IV Last administered on 08/26/17 17:38; Start 08/26/17 at 18:00; Stop 08/27/17 at 17 :59; Status DC Aspirin (Ecotrin) 81 mg DAILY PO Last administered on 10/04/17 10:37; Start 09/06/17 at 09:00; Stop 10/06/17 at 08:59 Atorvastatin Calcium (Lipitor) 20 mg QHS PO Last administered on 10/03/17 21: 22; Start 09/01/17 at 21:00; Stop 10/31/17 at 20:59 Atorvastatin Calcium (Lipitor) 40 mg QHS PO Last administered on 08/24/17 21: 19; Start 08/19/17 at 21:00; Stop 08/25/17 at 07:59; Status DC Chlorhexidine Gluconate (Chlorhexidine Gluconate) SWAB/BRUSH ORAL CAVITY BID MT ; Start 08/16/17 at 09:00; Stop 08/16/17 at 10:41; Status DC Cod Liver Oil/ Zinc Oxide (Desitin) APPLY TO right side abd wall BID TOP Last administered on 09/19/17 10:37; Start 09/08/17 at 09:00; Stop 09/19/17 at 18: 18; Status DC Cyclobenzaprine HCl (Flexeril) 10 mg DAILY PRN PO MUSCLE SPASMS; Start at 09:30; Stop 08/27/17 at 09:26; Status DC Diphenhydramine HCl (Benadryl) 12.5 mg Q4HP PRN IV ITCHING; Start 08/23/17 at 18:00; Stop 09/01/17 at 09:20; Status DC Diphenhydramine HCl (Benadryl) 12.5 mg Q4HP PRN IV ITCHING; Start 08/17/17 at 08:00; Stop 08/20/17 at 11:37; Status DC Enoxaparin Sodium (Lovenox) 40 mg DAILY SC Last administered on 08/20/17 08:54 ; Start 08/16/17 at 09:00; Stop 08/21/17 at 19:37; Status DC Enoxaparin Sodium (Lovenox) 40 mg DAILY@2100 SC Last administered on 21:22; Start 08/21/17 at 21:00; Stop 10/06/17 at 20:59 Ertapenem 1 gm/ Sodium Chloride 50 ml @ 100 mls/hr Q24H IV Last administered on 09/11/17 17:26; Start 09/03/17 at 17:00; Stop 09/12/17 at 08:45; Status DC Ertapenem 1 gm/ Sodium Chloride 50 ml @ 100 mls/hr Q24H IV Last administered on 08/29/17 17:42; Start 08/16/17 at 17:00; Stop 08/30/17 at 14:33; Status DC Fat Emulsion Intravenous 500 ml @ 20 mls/hr ONCE@1800 IV Last administered on 08/24/17 17:49; Start 08/24/17 at 18:00; Stop 08/25/17 at 17:59; Status DC Fat Emulsion Intravenous 500 ml @ 20 mls/hr ONCE@1800 IV Last administered on 08/25/17 17:14; Start 08/25/17 at 18:00; Stop 08/26/17 at 17:59; Status DC Fat Emulsion Intravenous 500 ml @ 20 mls/hr ONCE@1800 IV Last administered on 08/26/17 17:37; Start 08/26/17 at 18:00; Stop 08/27/17 at 17:59; Status DC Fat Emulsion Intravenous 500 ml @ 20 mls/hr ONCE@1800 IV Last administered on 08/27/17 17:39; Start 08/27/17 at 18:00; Stop 08/28/17 at 17:59; Status DC Fat Emulsion Intravenous 500 ml @ 20 mls/hr ONCE@1800 IV Last administered on 08/28/17 18:05; Start 08/28/17 at 18:00; Stop 08/29/17 at 17:59; Status DC Fat Emulsion Intravenous 500 ml @ 20 mls/hr ONCE@1800 IV Last administered on 08/29/17 17:42; Start 08/29/17 at 18:00; Stop 08/30/17 at 17:59; Status DC Fat Emulsion Intravenous 500 ml @ 20 mls/hr ONCE@1800 IV Last administered on 08/30/17 18:35; Start 08/30/17 at 18:00; Stop 08/31/17 at 17:59; Status DC Fentanyl Citrate (Sublimaze) 25 mcg Q5MP PRN IV MODERATE PAIN (PS 4-7) Last administered on 08/23/17 18:46; Start 08/23/17 at 18:30; Stop 08/23/17 at 19 :30; Status DC Fentanyl Citrate (Sublimaze) 25 mcg Q5MP PRN IV MODERATE PAIN (PS 4-7); Start 08/16/17 at 00:00; Stop 08/16/17 at 01:15; Status DC Fluconazole 100 mg/IV Miscellaneous Supplies 50 ml @ 50 mls/hr Q24H IV Last administered on 09/11/17 18:00; Start 08/24/17 at 18:00; Stop 09/12/17 at 08: 45; Status DC Heparin Sodium (Heparin (Flush)) 200 units ASDIRECTED PRN IV SEE LABEL COMMENTS Last administered on 09/18/17 21:37; Start 08/24/17 at 12:15; Stop 09/21/17 at 22:10; Status DC Heparin Sodium (Heparin (Flush)) 200 units PICC IV Last administered on 17:38; Start 08/24/17 at 18:00; Stop 09/21/17 at 22:10; Status DC Heparin Sodium (Heparin Lock Flush 10units/ml) 10 units ASDIRECTED PRN IV SEE LABEL COMMENTS; Start 08/20/17 at 20:45; Stop 08/21/17 at 14:31; Status DC Heparin Sodium (Heparin Lock Flush 10units/ml) 10 units HLF IV Last administered on 08/21/17 05:13; Start 08/20/17 at 22:00; Stop 08/21/17 at 14: 31; Status DC Home Med (Med Rec Complete!) ASDIRECTED XX ; Start 08/15/17 at 16:15; Stop 08/15/17 at 16:15; Status DC Influenza Virus Vaccine (Fluzone High Dose) 0.5 ml ASDIRECTED IM Last administered on 08/19/17 10:15; Start 08/16/17 at 11:15; Stop 08/19/17 at 14:14 ; Status DC Insulin Human Lispro (HumaLOG INSULIN) See Protocol Table Q6H SC Last administered on 08/25/17 11:50; Start 08/24/17 at 18:00; Stop 08/25/17 at 12 :01; Status DC Insulin Human Lispro (HumaLOG INSULIN) See Protocol Table Q6H SC Last administered on 08/26/17 11:40; Start 08/25/17 at 18:00; Stop 08/26/17 at 12 :01; Status DC Insulin Human Lispro (HumaLOG INSULIN) See Protocol Table Q6H SC Last administered on 08/27/17 12:09; Start 08/26/17 at 18:00; Stop 08/27/17 at 12 :01; Status DC Insulin Human Lispro (HumaLOG INSULIN) See Protocol Table Q6H SC Last administered on 08/28/17 12:15; Start 08/27/17 at 18:00; Stop 08/28/17 at 12 :01; Status DC Insulin Human Lispro (HumaLOG INSULIN) See Protocol Table Q6H SC Last administered on 08/29/17 12:33; Start 08/28/17 at 18:00; Stop 08/29/17 at 15 :00; Status DC Insulin Human Lispro (HumaLOG INSULIN) See Protocol Table Q6H SC Last administered on 08/30/17 13:25; Start 08/29/17 at 18:00; Stop 08/30/17 at 12 :01; Status DC Insulin Human Lispro (HumaLOG INSULIN) See Protocol Table Q6H SC Last administered on 08/31/17 11:43; Start 08/30/17 at 18:00; Stop 08/31/17 at 15 :00; Status DC Isosorbide Mononitrate (Imdur) 30 mg DAILY PO Last administered on 10/04/17 10:37; Start 08/19/17 at 09:00; Stop 10/17/17 at 08:59 Lactated Ringer's 1,000 ml @ 100 mls/hr Q10H IV ; Start 08/23/17 at 18:30; Stop 08/23/17 at 19:30; Status DC Lactated Ringer's 1,000 ml @ 100 mls/hr Q10H IV Last administered on 08:54; Start 08/15/17 at 17:00; Stop 08/20/17 at 11:37; Status DC Lactated Ringer's 1,000 ml @ 100 mls/hr Q10H IV ; Start 08/16/17 at 00:00; Stop 08/16/17 at 01:15; Status DC Lactated Ringer's 1,000 ml @ 100 mls/hr Q10H IV ; Start 09/20/17 at 13:15; Stop 09/20/17 at 14:15; Status DC Lactated Ringer's 1,000 ml @ 200 mls/hr Q5H IV Last administered on 04:00; Start 08/22/17 at 18:00; Stop 08/24/17 at 07:46; Status DC Levofloxacin (Levaquin) 500 mg DAILY@06 PO Last administered on 09/18/17 05:08 ; Start 09/12/17 at 06:00; Stop 09/18/17 at 21:55; Status DC Lidocaine HCl (LIDOCAINE 1% MDV 50ml) 10 ml ASDIRECTED SC Last administered on 09/12/17 14:30; Start 09/12/17 at 14:30; Stop 09/12/17 at 14:31; Status DC Magnesium Hydroxide (Milk Of Magnesia) 30 ml DAILYPRN PRN PO CONSTIPATION; Start 08/15/17 at 23:15; Stop 08/25/17 at 07:59; Status DC Metoprolol Tartrate (Lopressor) 25 mg BID PO Last administered on 09/03/17 21 :04; Start 08/15/17 at 21:00; Stop 09/04/17 at 07:48; Status DC Metoprolol Tartrate (Lopressor) 25 mg Q8H PO Last administered on 10/04/17 06 :21; Start 09/04/17 at 06:00; Stop 11/02/17 at 05:59 Midazolam HCl (Versed) 2 mg Q15MP PRN IV AGITATION Last administered on 05:04; Start 08/16/17 at 00:00; Stop 08/16/17 at 10:41; Status DC Miscellaneous (Unresolved Clarification Entry) SEE LABEL COMMENTS UNRESOLVED XX ; Start 08/21/17 at 00:01; Stop 08/21/17 at 19:37; Status DC Morphine Sulfate (Morphine Sulfate In 0.9%Nacl Iv Bag) Concentration 1 mg/ml ASDIRECTED PRN IV SEE LABEL COMMENTS Last administered on 08/31/17 10:45; Start 08/23/17 at 18:00; Stop 09/01/17 at 09:20; Status DC Morphine Sulfate (Morphine Sulfate In 0.9%Nacl Iv Bag) Concentration 1 mg/ml ASDIRECTED PRN IV SEE LABEL COMMENTS Last administered on 08/18/17 18:52; Start 08/17/17 at 08:00; Stop 08/20/17 at 11:37; Status DC Morphine Sulfate (Morphine Sulfate Inj) 2 mg Q2HP PRN IV BREAKTHROUGH PAIN Last administered on 09/20/17 01:46; Start 09/01/17 at 09:30; Stop 09/21/17 at 17:47; Status DC Morphine Sulfate (Morphine Sulfate Inj) 2 mg Q2HP PRN IV PAIN Last administered on 08/17/17 06:42; Start 08/16/17 at 00:00; Stop 08/17/17 at 07:53 ; Status DC Morphine Sulfate (Morphine Sulfate Inj) 2 mg Q2HP PRN IV BREAKTHROUGH PAIN Last administered on 10/04/17 09:05; Start 10/03/17 at 20:30; Stop 10/04/17 at 10:51; Status DC Morphine Sulfate (Morphine Sulfate Inj) 4 mg Q1H PRN IV SEVERE PAIN (PS 8-10); Start 08/15/17 at 23:15; Stop 08/15/17 at 23:53; Status DC Morphine Sulfate (Morphine Sulfate Inj) 4 mg Q3HP PRN IV SEVERE PAIN (PS 8-10) ; Start 10/04/17 at 11:00; Stop 10/11/17 at 10:59 Morphine Sulfate (Morphine Sulfate Inj) 4 mg Q4HP PRN IV SEVERE PAIN (PS 8-10) Last administered on 08/23/17 09:18; Start 08/20/17 at 11:45; Stop 08/23/17 at 17:57; Status DC Multivitamins (Theragram-M) 1 tab DAILY PO Last administered on 08/24/17 08: 29; Start 08/19/17 at 09:00; Stop 08/25/17 at 07:59; Status DC Multivitamins 10 ml/Chromium/ Copper/Manganese/ Seleni/Zn 1 ml/ Amino Ac/ Electrol/ Dextrose/Calcium 2,011 ml @ 50 mls/hr ONCE@1800 IV Last administered on 08/27/17 17:39; Start 08/27/17 at 18:00; Stop 08/28/17 at 17 :59; Status DC Multivitamins 10 ml/Chromium/ Copper/Manganese/ Seleni/Zn 1 ml/ Amino Ac/ Electrol/ Dextrose/Calcium 2,011 ml @ 50 mls/hr ONCE@1800 IV Last administered on 08/29/17 17:42; Start 08/29/17 at 18:00; Stop 08/30/17 at 17 :59; Status DC Multivitamins 10 ml/Chromium/ Copper/Manganese/ Seleni/Zn 1 ml/ Amino Ac/ Electrol/ Dextrose/Calcium 2,011 ml @ 85 mls/hr ONCE@1800 IV Last administered on 08/24/17 17:49; Start 08/24/17 at 18:00; Stop 08/25/17 at 17 :59; Status DC Nalbuphine HCl (Nubain) 2.5 mg Q6HP PRN IV PRURITIS; Start 08/23/17 at 18:00; Stop 09/01/17 at 09:20; Status DC Nalbuphine HCl (Nubain) 2.5 mg Q6HP PRN IV PRURITIS; Start 08/17/17 at 08:00; Stop 08/20/17 at 11:37; Status DC Naloxone HCl (Narcan) 0.1 mg Q5MP PRN IV SEE LABEL COMMENTS; Start 08/23/17 at 18:00; Stop 09/01/17 at 09:20; Status DC Naloxone HCl (Narcan) 0.1 mg Q5MP PRN IV SEE LABEL COMMENTS; Start 08/17/17 at 08:00; Stop 08/20/17 at 11:37; Status DC Nitroglycerin (Nitrostat (1/ 150)) 0.4 mg Q5MP PRN SL CHEST PAIN Last administered on 09/14/17 10:43; Start 08/19/17 at 09:30; Stop 10/17/17 at 09:29 Non-Formulary Medication (Epidural/[employer] [place]) USE THIS ENTRY TO VEND ... Q1M PRN XX SEE LABEL COMMENTS; Start 08/23/17 at 18:00; Stop 09/01/17 at 09:20; Status DC Non-Formulary Medication (Epidural/[employer] [place]) USE THIS ENTRY TO VEND ... Q1M PRN XX SEE LABEL COMMENTS; Start 08/17/17 at 08:00; Stop 08/20/17 at 11:37; Status DC Octreotide Acetate (SandoSTATIN) 100 mcg Q8H SC Last administered on 05:03; Start 08/20/17 at 14:00; Stop 08/24/17 at 07:37; Status DC Octreotide Acetate (SandoSTATIN) 200 mcg Q8H SC Last administered on 05:23; Start 08/24/17 at 14:00; Stop 08/29/17 at 09:05; Status DC Octreotide Acetate (SandoSTATIN) 200 mcg Q8H SC Last administered on 09/18/17 13:37; Start 09/07/17 at 14:00; Stop 09/18/17 at 21:55; Status DC Ondansetron HCl (ZOFRAN INJection) 4 mg Q4HP PRN IV NAUSEA OR VOMITING; Start 08/23/17 at 18:30; Stop 08/23/17 at 19:30; Status DC Ondansetron HCl (ZOFRAN INJection) 4 mg Q4HP PRN IV NAUSEA OR VOMITING; Start 08/16/17 at 00:00; Stop 08/16/17 at 01:15; Status DC Ondansetron HCl (ZOFRAN INJection) 4 mg Q4HP PRN IV NAUSEA OR VOMITING; Start 09/20/17 at 13:15; Stop 09/20/17 at 14:15; Status DC Ondansetron HCl (ZOFRAN INJection) 4 mg Q6HP PRN IV NAUSEA; Start 08/23/17 at 18:00; Stop 09/01/17 at 09:20; Status DC Ondansetron HCl (ZOFRAN INJection) 4 mg Q6HP PRN IV NAUSEA OR VOMITING; Start 08/15/17 at 23:15; Stop 08/27/17 at 09:26; Status DC Ondansetron HCl (ZOFRAN INJection) 4 mg Q6HP PRN IV NAUSEA; Start 08/17/17 at 08:00; Stop 08/20/17 at 11:37; Status DC Ondansetron HCl (ZOFRAN INJection) 4 mg Q6HP PRN IV NAUSEA OR VOMITING Last administered on 10/04/17 10:44; Start 10/04/17 at 08:15; Stop 11/03/17 at 08 :14 Pantoprazole Sodium (Protonix) 40 mg BID IV Last administered on 09/19/17 10: 37; Start 08/23/17 at 21:00; Stop 09/19/17 at 18:18; Status DC Pantoprazole Sodium (Protonix) 40 mg BID IV Last administered on 08/23/17 09: 34; Start 08/16/17 at 09:00; Stop 08/23/17 at 17:56; Status DC Pantoprazole Sodium (Protonix) 40 mg BID PO Last administered on 10/04/17 10: 36; Start 09/19/17 at 21:00; Stop 10/19/17 at 20:59 Phenol (Chloraseptic (Cepacol)) 1 spray Q2HP PRN MT SORE THROAT; Start at 15:45; Stop 09/18/17 at 21:55; Status DC Pneumococcal Polyvalent Vaccine (Prevnar 13) 0.5 ml ASDIRECTED IM Last administered on 08/19/17 10:16; Start 08/16/17 at 11:15; Stop 08/19/17 at 14:14 ; Status DC Propofol 1000 mg/ IV Miscellaneous Supplies 100 ml @ 6.68 mls/hr [id number] IV Last administered on 08/16/17 05:22; Start 08/15/17 at 23:47; Stop 08/16/17 at 10:41; Status DC Sodium Chloride 1,000 ml @ 15 mls/hr Q24H IV ; Start 08/23/17 at 17:53; Stop 08/24/17 at 07:51; Status DC Sodium Chloride 1,000 ml @ 15 mls/hr Q24H IV ; Start 08/17/17 at 07:49; Stop 08/17/17 at 07:55; Status DC Sodium Chloride 1,000 ml @ 30 mls/hr Q24H IV Last administered on 08/31/17 17:17; Start 08/24/17 at 18:00; Stop 09/03/17 at 01:57; Status DC Sodium Chloride 1,000 ml @ 200 mls/hr Q5H IV Last administered on 08/24/17 14:00; Start 08/24/17 at 07:45; Stop 08/24/17 at 17:21; Status DC Sodium Chloride (Saline Lock Flush) 10 ml ASDIRECTED PRN IV SEE LABEL COMMENTS Last administered on 09/12/17 17:59; Start 08/24/17 at 12:15; Stop 09/21/17 at 22:10; Status DC Sodium Chloride (Saline Lock Flush) 10 ml ASDIRECTED PRN IV SEE LABEL COMMENTS ; Start 08/20/17 at 20:45; Stop 08/21/17 at 14:31; Status DC Sodium Chloride (Saline Lock Flush) 10 ml PICC IV Last administered on 17:38; Start 08/24/17 at 18:00; Stop 09/21/17 at 22:10; Status DC Sodium Chloride (Saline Lock Flush) 10 ml SLF IV Last administered on 05:13; Start 08/20/17 at 22:00; Stop 08/21/17 at 14:31; Status DC Sucralfate (Carafate Suspension) 1 gm Q6H GT Last administered on 09/18/17 17: 26; Start 09/09/17 at 12:00; Stop 09/18/17 at 21:55; Status DC Vitamin D (Vitamin D) 1,000 units DAILY PO Last administered on 08/23/17 09: 36; Start 08/19/17 at 09:00; Stop 08/23/17 at 20:45; Status DC Zolpidem Tartrate (Ambien) 2.5 mg QHS PRN PO INSOMNIA Last administered on 21:28; Start 09/01/17 at 18:15; Stop 10/08/17 at 18:14 Allergies Coded Allergies: Penicillins (Verified Adverse Reaction, Intermediate, STOMACH ULCERS MANY YEARS AGO, 09/03/17) Objective Physical Examination Examination GENERAL APPEARANCE:visibly uncomfortable, re: left flank tenderness. SKIN: Warm and moist. HEENT: Normocephalic, atraumatic. [place] palpebral conjunctiva, anicteric sclerae. Lips and mucosa appear moist. NECK: Supple, no thyromegaly. No obvious jugular venous distention. LUNGS: Clear to auscultation bilaterally. No wheezing appreciated. HEART: No chest wall abnormalities. Regular rate and rhythm with no murmurs appreciated. ABDOMEN: Abdomen is round, soft, nondistended. right YORDY/wound vac changed yesterday only minimal amount in canister. Left gastrostomy tube to suction, left jejunostomy tube capped. Abdomen soft, does not look distended. Point tenderness over left flank, lateral left side.. EXTREMITIES: Extremities have no deformities. No edema identified. Vital Signs Vital Signs Date Time Temp Pulse Resp B/P (MAP) Pulse Ox O2 Delivery O2 Flow Rate FiO2 10/04/17 10:37 18 10/04/17 10:37 132/74 10/04/17 08:04 Room Air 10/04/17 08:00 97.9 75 97 I&Os I&O- Last 24 Hours up to 6 AM 10/05/17 06:00 Intake Total 0 ml Output Total 201 ml Balance -201 ml Laboratory Data Labs 24H Laboratory Tests 2 10/04/17 08:17: Immature Granulocyte % (Auto) 0.4H, White Blood Count 8.3, Red Blood Count 3.75L , Hemoglobin 11.6L, Hematocrit 35.2L, Mean Corpuscular Volume 93.9, Mean Corpuscular Hemoglobin 30.9, Mean Corpuscular Hemoglobin Concent 33.0, Red Cell Distribution Width 15.1H, Platelet Count 406, Neutrophils (%) (Auto) 73.4H, Lymphocytes (%) (Auto) 17.7L, Monocytes (%) (Auto) 7.6H, Eosinophils (%) (Auto) 0.4, Basophils (%) (Auto) 0.5, Neutrophils # (Auto) 6.1, Lymphocytes # (Auto) 1.5, Monocytes # (Auto) 0.6, Eosinophils # (Auto) 0.0, Basophils # (Auto) 0.0, Immature Granulocyte # (Auto) 0.0, Nucleated Red Blood Cells % (auto) 0.0, Anion Gap 8, Glomerular Filtration Rate > 60.0, Blood Urea Nitrogen 20H, Creatinine 1.12, Sodium Level 137, Potassium Level 3.9, Chloride Level 102, Carbon Dioxide Level 27, Calcium Level 9.3, Aspartate Amino Transf (AST/SGOT) 36 , Alanine Aminotransferase (ALT/SGPT) 65, Alkaline Phosphatase 164H, Total Bilirubin 0.8, Total Protein 7.5, Albumin 2.6L, Albumin/Globulin Ratio 0.53L CBC/BMP Laboratory Tests 10/04/17 08:17 Red Blood Count 3.75 L, Mean Corpuscular Volume 93.9, Mean Corpuscular Hemoglobin 30.9, Mean Corpuscular Hemoglobin Concent 33.0, Red Cell Distribution Width 15.1 H, Neutrophils (%) (Auto) 73.4 H, Lymphocytes (%) (Auto ) 17.7 L, Monocytes (%) (Auto) 7.6 H, Eosinophils (%) (Auto) 0.4, Basophils (%) (Auto) 0.5, Neutrophils # (Auto) 6.1, Lymphocytes # (Auto) 1.5, Monocytes # ( Auto) 0.6, Eosinophils # (Auto) 0.0, Basophils # (Auto) 0.0, Calcium Level 9.3, Aspartate Amino Transf (AST/SGOT) 36, Alanine Aminotransferase (ALT/SGPT) 65, Alkaline Phosphatase 164 H, Total Bilirubin 0.8, Total Protein 7.5, Albumin 2.6 L 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 unclear etiology right now. will make him acute admission again. I will give him one dose of toradol and start norco again. If musculoskeletal should resolve. If persistent will need CT to rule out other etiology Keep gastrostomy tube to suctioin right now, NPO. can continue with jejunostomy feeding. Plan / VTE VTE Prophylaxis Ordered?: Yes Plan / Urinary Catheter Urinary Catheter: D/C [place] Reason for insertion/continuin: Critical Pt monitoring ORA SIMPSON MD Oct 04, 2017 11:11
[2017-10-04 15:00] VITALS: BP 130/54
[2017-10-04] MEDS: ATORVASTATIN 20 MG TAB PO SCH (20:59)
[2017-10-04] MEDS: ENOXAPARIN 40 MG/0.4 ML SYRINGE (J1650) SC SCH (20:59)
[2017-10-04 22:00] VITALS: BP 123/61
[2017-10-05 05:23] VITALS: BP 128/65
[2017-10-05] MEDS: METOPROLOL TART 25 MG TABLET PO SCH ×3 (05:46→20:45)
[2017-10-05 06:29] LABS: BASO % 0.2 % (0.0-1.0); EOS % 0.5 % (0.0-3.0); IMMATURE GRANULOCYTE % 0.4 % (0-0); LYMPH # 2.1 10^3/uL (1.5-4.5); LYMPH % 25.1 % (24.0-44.0); MEAN CORPUSCULAR HEMOGLOBIN 30.2 pg (27.0-33.0); MEAN CORPUSCULAR HGB CONC 32.3 g/dl (32.0-36.5); MEAN CORPUSCULAR VOLUME 93.5 fl (80.0-96.0); MONO # 0.5 10^3/uL (0.0-0.8); MONO % 5.5 % (0.0-5.0); NEUTROPHILS # 5.8 10^3/uL (1.8-7.7); NEUTROPHILS % 68.3 % (36.0-66.0); PLATELET COUNT, AUTOMATED 388 10^3/uL (150-450); RED CELL DISTRIBUTION WIDTH 15.4 % (11.5-14.5); WHITE BLOOD COUNT 8.4 10^3/uL (4.0-10.0)
[2017-10-05 06:48] LABS: CALCIUM LEVEL 9.2 MG/DL (8.8-10.2); CREATININE FOR GFR 1.3 MG/DL (0.70-1.30); POTASSIUM SERUM 4.4 MEQ/L (3.5-5.1)
[2017-10-05] MEDS: IPRATROPIUM 0.5MG/ALBUTEROL 2.5MG INH SOL UD 3ML (DUONEB)(J7620) NEB SCH ×4 (08:29→20:43)
[2017-10-05] MEDS: PANTOPRAZOLE 40MG TAB (PROTONIX) PO SCH ×2 (08:43→20:44)
[2017-10-05] MEDS: ASPIRIN 81 MG ENTERIC TAB PO SCH (08:43)
[2017-10-05] MEDS: ISOSORBIDE MON. (IMDUR) 30 MG XR TAB PO SCH (08:44)
--- NOTE | 2017-10-05 09:35 | IPNPDOC ---
Subjective General Date/Time Seen The patient was seen on 10/05/17 at 09:31. Subject Chief Complaint/History The patient is a 66-year-old male admitted with a reason for visit of Perforated Duodenal Ulcer. He felt better after a shot of toradol yesterday and the pain did not return. We did get more than 2L in the past 24 hours from the gastrostomy tube so he does not seem to still empty well through the gastrojejunostomy. We are not getting much from the wound back either. Current Medications Current Medications Current Medications Acetaminophen (Tylenol Tab) 650 mg Q4HP PRN PO MILD PAIN or TEMP > 101 Last administered on 10/02/17 08:42; Start 08/15/17 at 23:15; Stop 10/13/17 at 23: 14 Acetaminophen/ Hydrocodone Bitart ([place], [place] 5/325) 1 tab Q4HP PRN PO MILD /MODERATE PAIN (PS 1-7); Start 08/20/17 at 11:45; Stop 08/23/17 at 20:45; Status DC Acetaminophen/ Hydrocodone Bitart ([place], [place] 5/325) 2 tab Q4HP PRN PO SEVERE PAIN (PS 8-10) Last administered on 08/23/17 05:56; Start 08/20/17 at 11:45; Stop 08/23/17 at 20:45; Status DC Acetaminophen/ Hydrocodone Bitart ([place], [place] 5/325) 2 tab Q4HP PRN PO SEVERE PAIN (PS 8-10); Start 10/04/17 at 11:00; Stop 10/08/17 at 09:29 Acetaminophen/ Hydrocodone Bitart ([place], [place] 5/325) 2 tab Q6HP PRN PO SEVERE PAIN (PS 8-10) Last administered on 10/04/17 10:37; Start 09/01/17 at 09:30; Stop 10/04/17 at 10:51; Status DC Albuterol Sulfate (Proventil Neb) 2.5 mg Q2HP PRN NEB SHORTNESS OF BREATH; Start 08/16/17 at 00:00; Stop 08/27/17 at 09:26; Status DC Albuterol/ Ipratropium (Duoneb (Ipr 0.5mg/Alb 2.5mg)) 3 ml RQ4H NEB Last administered on 08/16/17 09:25; Start 08/16/17 at 00:00; Stop 08/16/17 at 10:43 ; Status DC Albuterol/ Ipratropium (Duoneb (Ipr 0.5mg/Alb 2.5mg)) 3 ml RQID NEB Last administered on 10/05/17 08:29; Start 08/16/17 at 12:00; Stop 10/14/17 at 11: 59 Amino Ac/Electrol/ Dextrose/Calcium 2,000 ml @ 50 mls/hr ONCE@1800 IV Last administered on 08/28/17 18:06; Start 08/28/17 at 18:00; Stop 08/29/17 at 17 :59; Status DC Amino Ac/Electrol/ Dextrose/Calcium 2,000 ml @ 50 mls/hr ONCE@1800 IV Last administered on 08/30/17 18:35; Start 08/30/17 at 18:00; Stop 08/31/17 at 17 :59; Status DC Amino Ac/Electrol/ Dextrose/Calcium 2,000 ml @ 75 mls/hr ONCE@1800 IV Last administered on 08/25/17 17:15; Start 08/25/17 at 18:00; Stop 08/26/17 at 17 :59; Status DC Amino Ac/Electrol/ Dextrose/Calcium 2,000 ml @ 75 mls/hr ONCE@1800 IV Last administered on 08/26/17 17:38; Start 08/26/17 at 18:00; Stop 08/27/17 at 17 :59; Status DC Aspirin (Ecotrin) 81 mg DAILY PO Last administered on 10/05/17 08:43; Start 09/06/17 at 09:00; Stop 10/06/17 at 08:59 Atorvastatin Calcium (Lipitor) 20 mg QHS PO Last administered on 10/04/17 20: 59; Start 09/01/17 at 21:00; Stop 10/31/17 at 20:59 Atorvastatin Calcium (Lipitor) 40 mg QHS PO Last administered on 08/24/17 21: 19; Start 08/19/17 at 21:00; Stop 08/25/17 at 07:59; Status DC Chlorhexidine Gluconate (Chlorhexidine Gluconate) SWAB/BRUSH ORAL CAVITY BID MT ; Start 08/16/17 at 09:00; Stop 08/16/17 at 10:41; Status DC Cod Liver Oil/ Zinc Oxide (Desitin) APPLY TO right side abd wall BID TOP Last administered on 09/19/17 10:37; Start 09/08/17 at 09:00; Stop 09/19/17 at 18: 18; Status DC Cyclobenzaprine HCl (Flexeril) 10 mg DAILY PRN PO MUSCLE SPASMS; Start at 09:30; Stop 08/27/17 at 09:26; Status DC Diphenhydramine HCl (Benadryl) 12.5 mg Q4HP PRN IV ITCHING; Start 08/23/17 at 18:00; Stop 09/01/17 at 09:20; Status DC Diphenhydramine HCl (Benadryl) 12.5 mg Q4HP PRN IV ITCHING; Start 08/17/17 at 08:00; Stop 08/20/17 at 11:37; Status DC Enoxaparin Sodium (Lovenox) 40 mg DAILY SC Last administered on 08/20/17 08:54 ; Start 08/16/17 at 09:00; Stop 08/21/17 at 19:37; Status DC Enoxaparin Sodium (Lovenox) 40 mg DAILY@2100 SC Last administered on 20:59; Start 08/21/17 at 21:00; Stop 10/06/17 at 20:59 Ertapenem 1 gm/ Sodium Chloride 50 ml @ 100 mls/hr Q24H IV Last administered on 09/11/17 17:26; Start 09/03/17 at 17:00; Stop 09/12/17 at 08:45; Status DC Ertapenem 1 gm/ Sodium Chloride 50 ml @ 100 mls/hr Q24H IV Last administered on 08/29/17 17:42; Start 08/16/17 at 17:00; Stop 08/30/17 at 14:33; Status DC Fat Emulsion Intravenous 500 ml @ 20 mls/hr ONCE@1800 IV Last administered on 08/24/17 17:49; Start 08/24/17 at 18:00; Stop 08/25/17 at 17:59; Status DC Fat Emulsion Intravenous 500 ml @ 20 mls/hr ONCE@1800 IV Last administered on 08/25/17 17:14; Start 08/25/17 at 18:00; Stop 08/26/17 at 17:59; Status DC Fat Emulsion Intravenous 500 ml @ 20 mls/hr ONCE@1800 IV Last administered on 08/26/17 17:37; Start 08/26/17 at 18:00; Stop 08/27/17 at 17:59; Status DC Fat Emulsion Intravenous 500 ml @ 20 mls/hr ONCE@1800 IV Last administered on 08/27/17 17:39; Start 08/27/17 at 18:00; Stop 08/28/17 at 17:59; Status DC Fat Emulsion Intravenous 500 ml @ 20 mls/hr ONCE@1800 IV Last administered on 08/28/17 18:05; Start 08/28/17 at 18:00; Stop 08/29/17 at 17:59; Status DC Fat Emulsion Intravenous 500 ml @ 20 mls/hr ONCE@1800 IV Last administered on 08/29/17 17:42; Start 08/29/17 at 18:00; Stop 08/30/17 at 17:59; Status DC Fat Emulsion Intravenous 500 ml @ 20 mls/hr ONCE@1800 IV Last administered on 08/30/17 18:35; Start 08/30/17 at 18:00; Stop 08/31/17 at 17:59; Status DC Fentanyl Citrate (Sublimaze) 25 mcg Q5MP PRN IV MODERATE PAIN (PS 4-7) Last administered on 08/23/17 18:46; Start 08/23/17 at 18:30; Stop 08/23/17 at 19 :30; Status DC Fentanyl Citrate (Sublimaze) 25 mcg Q5MP PRN IV MODERATE PAIN (PS 4-7); Start 08/16/17 at 00:00; Stop 08/16/17 at 01:15; Status DC Fluconazole 100 mg/IV Miscellaneous Supplies 50 ml @ 50 mls/hr Q24H IV Last administered on 09/11/17 18:00; Start 08/24/17 at 18:00; Stop 09/12/17 at 08: 45; Status DC Heparin Sodium (Heparin (Flush)) 200 units ASDIRECTED PRN IV SEE LABEL COMMENTS Last administered on 09/18/17 21:37; Start 08/24/17 at 12:15; Stop 09/21/17 at 22:10; Status DC Heparin Sodium (Heparin (Flush)) 200 units PICC IV Last administered on 17:38; Start 08/24/17 at 18:00; Stop 09/21/17 at 22:10; Status DC Heparin Sodium (Heparin Lock Flush 10units/ml) 10 units ASDIRECTED PRN IV SEE LABEL COMMENTS; Start 08/20/17 at 20:45; Stop 08/21/17 at 14:31; Status DC Heparin Sodium (Heparin Lock Flush 10units/ml) 10 units HLF IV Last administered on 08/21/17 05:13; Start 08/20/17 at 22:00; Stop 08/21/17 at 14: 31; Status DC Home Med (Med Rec Complete!) ASDIRECTED XX ; Start 08/15/17 at 16:15; Stop 08/15/17 at 16:15; Status DC Influenza Virus Vaccine (Fluzone High Dose) 0.5 ml ASDIRECTED IM Last administered on 08/19/17 10:15; Start 08/16/17 at 11:15; Stop 08/19/17 at 14:14 ; Status DC Insulin Human Lispro (HumaLOG INSULIN) See Protocol Table Q6H SC Last administered on 08/25/17 11:50; Start 08/24/17 at 18:00; Stop 08/25/17 at 12 :01; Status DC Insulin Human Lispro (HumaLOG INSULIN) See Protocol Table Q6H SC Last administered on 08/26/17 11:40; Start 08/25/17 at 18:00; Stop 08/26/17 at 12 :01; Status DC Insulin Human Lispro (HumaLOG INSULIN) See Protocol Table Q6H SC Last administered on 08/27/17 12:09; Start 08/26/17 at 18:00; Stop 08/27/17 at 12 :01; Status DC Insulin Human Lispro (HumaLOG INSULIN) See Protocol Table Q6H SC Last administered on 08/28/17 12:15; Start 08/27/17 at 18:00; Stop 08/28/17 at 12 :01; Status DC Insulin Human Lispro (HumaLOG INSULIN) See Protocol Table Q6H SC Last administered on 08/29/17 12:33; Start 08/28/17 at 18:00; Stop 08/29/17 at 15 :00; Status DC Insulin Human Lispro (HumaLOG INSULIN) See Protocol Table Q6H SC Last administered on 08/30/17 13:25; Start 08/29/17 at 18:00; Stop 08/30/17 at 12 :01; Status DC Insulin Human Lispro (HumaLOG INSULIN) See Protocol Table Q6H SC Last administered on 08/31/17 11:43; Start 08/30/17 at 18:00; Stop 08/31/17 at 15 :00; Status DC Isosorbide Mononitrate (Imdur) 30 mg DAILY PO Last administered on 10/05/17 08:44; Start 08/19/17 at 09:00; Stop 10/17/17 at 08:59 Lactated Ringer's 1,000 ml @ 100 mls/hr Q10H IV ; Start 08/23/17 at 18:30; Stop 08/23/17 at 19:30; Status DC Lactated Ringer's 1,000 ml @ 100 mls/hr Q10H IV Last administered on 08:54; Start 08/15/17 at 17:00; Stop 08/20/17 at 11:37; Status DC Lactated Ringer's 1,000 ml @ 100 mls/hr Q10H IV ; Start 08/16/17 at 00:00; Stop 08/16/17 at 01:15; Status DC Lactated Ringer's 1,000 ml @ 100 mls/hr Q10H IV ; Start 09/20/17 at 13:15; Stop 09/20/17 at 14:15; Status DC Lactated Ringer's 1,000 ml @ 200 mls/hr Q5H IV Last administered on 04:00; Start 08/22/17 at 18:00; Stop 08/24/17 at 07:46; Status DC Levofloxacin (Levaquin) 500 mg DAILY@06 PO Last administered on 09/18/17 05:08 ; Start 09/12/17 at 06:00; Stop 09/18/17 at 21:55; Status DC Lidocaine HCl (LIDOCAINE 1% MDV 50ml) 10 ml ASDIRECTED SC Last administered on 09/12/17 14:30; Start 09/12/17 at 14:30; Stop 09/12/17 at 14:31; Status DC Magnesium Hydroxide (Milk Of Magnesia) 30 ml DAILYPRN PRN PO CONSTIPATION; Start 08/15/17 at 23:15; Stop 08/25/17 at 07:59; Status DC Metoprolol Tartrate (Lopressor) 25 mg BID PO Last administered on 09/03/17 21 :04; Start 08/15/17 at 21:00; Stop 09/04/17 at 07:48; Status DC Metoprolol Tartrate (Lopressor) 25 mg Q8H PO Last administered on 10/05/17 05 :46; Start 09/04/17 at 06:00; Stop 11/02/17 at 05:59 Midazolam HCl (Versed) 2 mg Q15MP PRN IV AGITATION Last administered on 05:04; Start 08/16/17 at 00:00; Stop 08/16/17 at 10:41; Status DC Miscellaneous (Unresolved Clarification Entry) SEE LABEL COMMENTS UNRESOLVED XX ; Start 08/21/17 at 00:01; Stop 08/21/17 at 19:37; Status DC Morphine Sulfate (Morphine Sulfate In 0.9%Nacl Iv Bag) Concentration 1 mg/ml ASDIRECTED PRN IV SEE LABEL COMMENTS Last administered on 08/31/17 10:45; Start 08/23/17 at 18:00; Stop 09/01/17 at 09:20; Status DC Morphine Sulfate (Morphine Sulfate In 0.9%Nacl Iv Bag) Concentration 1 mg/ml ASDIRECTED PRN IV SEE LABEL COMMENTS Last administered on 08/18/17 18:52; Start 08/17/17 at 08:00; Stop 08/20/17 at 11:37; Status DC Morphine Sulfate (Morphine Sulfate Inj) 2 mg Q2HP PRN IV BREAKTHROUGH PAIN Last administered on 09/20/17 01:46; Start 09/01/17 at 09:30; Stop 09/21/17 at 17:47; Status DC Morphine Sulfate (Morphine Sulfate Inj) 2 mg Q2HP PRN IV PAIN Last administered on 08/17/17 06:42; Start 08/16/17 at 00:00; Stop 08/17/17 at 07:53 ; Status DC Morphine Sulfate (Morphine Sulfate Inj) 2 mg Q2HP PRN IV BREAKTHROUGH PAIN Last administered on 10/04/17 09:05; Start 10/03/17 at 20:30; Stop 10/04/17 at 10:51; Status DC Morphine Sulfate (Morphine Sulfate Inj) 4 mg Q1H PRN IV SEVERE PAIN (PS 8-10); Start 08/15/17 at 23:15; Stop 08/15/17 at 23:53; Status DC Morphine Sulfate (Morphine Sulfate Inj) 4 mg Q3HP PRN IV SEVERE PAIN (PS 8-10) ; Start 10/04/17 at 11:00; Stop 10/11/17 at 10:59 Morphine Sulfate (Morphine Sulfate Inj) 4 mg Q4HP PRN IV SEVERE PAIN (PS 8-10) Last administered on 08/23/17 09:18; Start 08/20/17 at 11:45; Stop 08/23/17 at 17:57; Status DC Multivitamins (Theragram-M) 1 tab DAILY PO Last administered on 08/24/17 08: 29; Start 08/19/17 at 09:00; Stop 08/25/17 at 07:59; Status DC Multivitamins 10 ml/Chromium/ Copper/Manganese/ Seleni/Zn 1 ml/ Amino Ac/ Electrol/ Dextrose/Calcium 2,011 ml @ 50 mls/hr ONCE@1800 IV Last administered on 08/27/17 17:39; Start 08/27/17 at 18:00; Stop 08/28/17 at 17 :59; Status DC Multivitamins 10 ml/Chromium/ Copper/Manganese/ Seleni/Zn 1 ml/ Amino Ac/ Electrol/ Dextrose/Calcium 2,011 ml @ 50 mls/hr ONCE@1800 IV Last administered on 08/29/17 17:42; Start 08/29/17 at 18:00; Stop 08/30/17 at 17 :59; Status DC Multivitamins 10 ml/Chromium/ Copper/Manganese/ Seleni/Zn 1 ml/ Amino Ac/ Electrol/ Dextrose/Calcium 2,011 ml @ 85 mls/hr ONCE@1800 IV Last administered on 08/24/17 17:49; Start 08/24/17 at 18:00; Stop 08/25/17 at 17 :59; Status DC Nalbuphine HCl (Nubain) 2.5 mg Q6HP PRN IV PRURITIS; Start 08/23/17 at 18:00; Stop 09/01/17 at 09:20; Status DC Nalbuphine HCl (Nubain) 2.5 mg Q6HP PRN IV PRURITIS; Start 08/17/17 at 08:00; Stop 08/20/17 at 11:37; Status DC Naloxone HCl (Narcan) 0.1 mg Q5MP PRN IV SEE LABEL COMMENTS; Start 08/23/17 at 18:00; Stop 09/01/17 at 09:20; Status DC Naloxone HCl (Narcan) 0.1 mg Q5MP PRN IV SEE LABEL COMMENTS; Start 08/17/17 at 08:00; Stop 08/20/17 at 11:37; Status DC Nitroglycerin (Nitrostat (1/ 150)) 0.4 mg Q5MP PRN SL CHEST PAIN Last administered on 09/14/17 10:43; Start 08/19/17 at 09:30; Stop 10/17/17 at 09:29 Non-Formulary Medication (Epidural/ROVING HAND [place]) USE THIS ENTRY TO VEND ... Q1M PRN XX SEE LABEL COMMENTS; Start 08/23/17 at 18:00; Stop 09/01/17 at 09:20; Status DC Non-Formulary Medication (Epidural/ROVING HAND [place]) USE THIS ENTRY TO VEND ... Q1M PRN XX SEE LABEL COMMENTS; Start 08/17/17 at 08:00; Stop 08/20/17 at 11:37; Status DC Octreotide Acetate (SandoSTATIN) 100 mcg Q8H SC Last administered on 05:03; Start 08/20/17 at 14:00; Stop 08/24/17 at 07:37; Status DC Octreotide Acetate (SandoSTATIN) 200 mcg Q8H SC Last administered on 05:23; Start 08/24/17 at 14:00; Stop 08/29/17 at 09:05; Status DC Octreotide Acetate (SandoSTATIN) 200 mcg Q8H SC Last administered on 09/18/17 13:37; Start 09/07/17 at 14:00; Stop 09/18/17 at 21:55; Status DC Ondansetron HCl (ZOFRAN INJection) 4 mg Q4HP PRN IV NAUSEA OR VOMITING; Start 08/23/17 at 18:30; Stop 08/23/17 at 19:30; Status DC Ondansetron HCl (ZOFRAN INJection) 4 mg Q4HP PRN IV NAUSEA OR VOMITING; Start 08/16/17 at 00:00; Stop 08/16/17 at 01:15; Status DC Ondansetron HCl (ZOFRAN INJection) 4 mg Q4HP PRN IV NAUSEA OR VOMITING; Start 09/20/17 at 13:15; Stop 09/20/17 at 14:15; Status DC Ondansetron HCl (ZOFRAN INJection) 4 mg Q6HP PRN IV NAUSEA; Start 08/23/17 at 18:00; Stop 09/01/17 at 09:20; Status DC Ondansetron HCl (ZOFRAN INJection) 4 mg Q6HP PRN IV NAUSEA OR VOMITING; Start 08/15/17 at 23:15; Stop 08/27/17 at 09:26; Status DC Ondansetron HCl (ZOFRAN INJection) 4 mg Q6HP PRN IV NAUSEA; Start 08/17/17 at 08:00; Stop 08/20/17 at 11:37; Status DC Ondansetron HCl (ZOFRAN INJection) 4 mg Q6HP PRN IV NAUSEA OR VOMITING Last administered on 10/04/17 10:44; Start 10/04/17 at 08:15; Stop 11/03/17 at 08 :14 Pantoprazole Sodium (Protonix) 40 mg BID IV Last administered on 09/19/17 10: 37; Start 08/23/17 at 21:00; Stop 09/19/17 at 18:18; Status DC Pantoprazole Sodium (Protonix) 40 mg BID IV Last administered on 08/23/17 09: 34; Start 08/16/17 at 09:00; Stop 08/23/17 at 17:56; Status DC Pantoprazole Sodium (Protonix) 40 mg BID PO Last administered on 10/05/17 08: 43; Start 09/19/17 at 21:00; Stop 10/19/17 at 20:59 Phenol (Chloraseptic (Cepacol)) 1 spray Q2HP PRN MT SORE THROAT; Start at 15:45; Stop 09/18/17 at 21:55; Status DC Pneumococcal Polyvalent Vaccine (Prevnar 13) 0.5 ml ASDIRECTED IM Last administered on 08/19/17 10:16; Start 08/16/17 at 11:15; Stop 08/19/17 at 14:14 ; Status DC Propofol 1000 mg/ IV Miscellaneous Supplies 100 ml @ 6.68 mls/hr [id number] IV Last administered on 08/16/17 05:22; Start 08/15/17 at 23:47; Stop 08/16/17 at 10:41; Status DC Sodium Chloride 1,000 ml @ 15 mls/hr Q24H IV ; Start 08/23/17 at 17:53; Stop 08/24/17 at 07:51; Status DC Sodium Chloride 1,000 ml @ 15 mls/hr Q24H IV ; Start 08/17/17 at 07:49; Stop 08/17/17 at 07:55; Status DC Sodium Chloride 1,000 ml @ 30 mls/hr Q24H IV Last administered on 08/31/17 17:17; Start 08/24/17 at 18:00; Stop 09/03/17 at 01:57; Status DC Sodium Chloride 1,000 ml @ 200 mls/hr Q5H IV Last administered on 08/24/17 14:00; Start 08/24/17 at 07:45; Stop 08/24/17 at 17:21; Status DC Sodium Chloride (Saline Lock Flush) 10 ml ASDIRECTED PRN IV SEE LABEL COMMENTS Last administered on 09/12/17 17:59; Start 08/24/17 at 12:15; Stop 09/21/17 at 22:10; Status DC Sodium Chloride (Saline Lock Flush) 10 ml ASDIRECTED PRN IV SEE LABEL COMMENTS ; Start 08/20/17 at 20:45; Stop 08/21/17 at 14:31; Status DC Sodium Chloride (Saline Lock Flush) 10 ml PICC IV Last administered on 17:38; Start 08/24/17 at 18:00; Stop 09/21/17 at 22:10; Status DC Sodium Chloride (Saline Lock Flush) 10 ml SLF IV Last administered on 05:13; Start 08/20/17 at 22:00; Stop 08/21/17 at 14:31; Status DC Sucralfate (Carafate Suspension) 1 gm Q6H GT Last administered on 09/18/17 17: 26; Start 09/09/17 at 12:00; Stop 09/18/17 at 21:55; Status DC Vitamin D (Vitamin D) 1,000 units DAILY PO Last administered on 08/23/17 09: 36; Start 08/19/17 at 09:00; Stop 08/23/17 at 20:45; Status DC Zolpidem Tartrate (Ambien) 2.5 mg QHS PRN PO INSOMNIA Last administered on 21:28; Start 09/01/17 at 18:15; Stop 10/08/17 at 18:14 Allergies Coded Allergies: Penicillins (Verified Adverse Reaction, Intermediate, STOMACH ULCERS MANY YEARS AGO, 09/03/17) Objective Physical Examination Examination GENERAL APPEARANCE:Patient seen, laying in bed, awake, alert, and oriented. Comfortable, in no acute distress. SKIN: Warm and moist. HEENT: Normocephalic, atraumatic. [place] palpebral conjunctiva, anicteric sclerae. Lips and mucosa appear moist. NECK: Supple, no thyromegaly. No obvious jugular venous distention. LUNGS: Clear to auscultation bilaterally. No wheezing appreciated. HEART: No chest wall abnormalities. Regular rate and rhythm with no murmurs appreciated. ABDOMEN: Abdomen is round, soft, nondidstended. Gtube with dark bilious drainage. Woudn vac still with only minimal drainage. Jejunostomy tube clamped. Midline incision mostly healed.. EXTREMITIES: Extremities have no deformities. No edema identified. Vital Signs Vital Signs Date Time Temp Pulse Resp B/P (MAP) Pulse Ox O2 Delivery O2 Flow Rate FiO2 10/05/17 08:48 Room Air 10/05/17 08:44 120/62 10/05/17 05:46 64 10/05/17 05:23 98.6 18 100 1.0 Laboratory Data Labs 24H Laboratory Tests 2 10/05/17 06:17: Immature Granulocyte % (Auto) 0.4H, White Blood Count 8.4, Red Blood Count 3.68L , Hemoglobin 11.1L, Hematocrit 34.4L, Mean Corpuscular Volume 93.5, Mean Corpuscular Hemoglobin 30.2, Mean Corpuscular Hemoglobin Concent 32.3, Red Cell Distribution Width 15.4H, Platelet Count 388, Neutrophils (%) (Auto) 68.3H, Lymphocytes (%) (Auto) 25.1, Monocytes (%) (Auto) 5.5H, Eosinophils (%) (Auto) 0.5, Basophils (%) (Auto) 0.2, Neutrophils # (Auto) 5.8, Lymphocytes # (Auto) 2.1, Monocytes # (Auto) 0.5, Eosinophils # (Auto) 0.0, Basophils # (Auto) 0.0, Immature Granulocyte # (Auto) 0.0, Nucleated Red Blood Cells % (auto) 0.0, Anion Gap 7L, Glomerular Filtration Rate 59.0, Blood Urea Nitrogen 26H, Creatinine 1.30, Sodium Level 138, Potassium Level 4.4, Chloride Level 100, Carbon Dioxide Level 31, Calcium Level 9.2 CBC/BMP Laboratory Tests 10/05/17 06:17 Red Blood Count 3.68 L, Mean Corpuscular Volume 93.5, Mean Corpuscular Hemoglobin 30.2, Mean Corpuscular Hemoglobin Concent 32.3, Red Cell Distribution Width 15.4 H, Neutrophils (%) (Auto) 68.3 H, Lymphocytes (%) (Auto ) 25.1, Monocytes (%) (Auto) 5.5 H, Eosinophils (%) (Auto) 0.5, Basophils (%) ( Auto) 0.2, Neutrophils # (Auto) 5.8, Lymphocytes # (Auto) 2.1, Monocytes # (Auto ) 0.5, Eosinophils # (Auto) 0.0, Basophils # (Auto) 0.0, Calcium Level 9.2 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 ?musculoskeletal will clamp gastrostomy tube again and allow him to eat. If he does get bloated, we can just open the gastrostomy tube up to suction again. If recurrence of symptoms, will consider doing a CT abdomen Plan / VTE VTE Prophylaxis Ordered?: Yes Plan / Urinary Catheter Urinary Catheter: D/C Davis Reason for insertion/continuin: Critical Pt monitoring ORA SIMPSON MD Oct 05, 2017 09:35
[2017-10-05] MEDS: NORCO, ANEXSIA 5/325MG TABLET (HYDROcodone/ACETAMINOPHEN) PO PRN (13:11)
[2017-10-05] MEDS: ATORVASTATIN 20 MG TAB PO SCH (20:44)
[2017-10-05] MEDS: ENOXAPARIN 40 MG/0.4 ML SYRINGE (J1650) SC SCH (20:45)
[2017-10-05 22:00] VITALS: BP 117/67
[2017-10-06] MEDS: ONDANSETRON 4MG/2ML VIAL (J2405) IV PRN (02:27)
[2017-10-06 06:00] VITALS: BP 140/74
[2017-10-06] MEDS: METOPROLOL TART 25 MG TABLET PO SCH ×3 (06:18→20:38)
[2017-10-06] MEDS: IPRATROPIUM 0.5MG/ALBUTEROL 2.5MG INH SOL UD 3ML (DUONEB)(J7620) NEB SCH ×4 (07:45→20:00)
[2017-10-06] MEDS: NORCO, ANEXSIA 5/325MG TABLET (HYDROcodone/ACETAMINOPHEN) PO PRN (10:01)
[2017-10-06] MEDS: PANTOPRAZOLE 40MG TAB (PROTONIX) PO SCH ×2 (10:02→20:02)
[2017-10-06] MEDS: ASPIRIN 81 MG ENTERIC TAB PO SCH (10:02)
[2017-10-06] MEDS: ISOSORBIDE MON. (IMDUR) 30 MG XR TAB PO SCH (10:04)
[2017-10-06 14:00] VITALS: BP 117/58
--- NOTE | 2017-10-06 18:50 | IPN ---
DATE: 10/06/2017 The patient remains on 5 Gilbert for treatment of his duodenal fistula. His drainage from the fistula has apparently diminished significantly, though he still has a wound VAC over the Oziel-Gilbert drain site. He had some nausea with a small amount of emesis early this morning and his gastrostomy tube was put back to suction and drained 1100 mL. This was taken off suction earlier in the day and he is back to eating and denies any pain or any problems. Vital signs show that he has been afebrile with a pulse in the 70s and a good blood pressure. Intake and output shows that we are doing a very poor job of measuring his oral intake as there is nothing recorded for today and only 180 recorded yesterday. He indicates he is voiding spontaneously without difficulty. His wound VAC drain drained 75 on 10/03/2017, and has not been changed since then. PHYSICAL EXAMINATION: The patient is alert and pleasant. He appears comfortable and is sitting up on his bed. He is cheerful and interactive. Heart exam shows a regular rhythm and lungs are clear. The abdomen shows a small bandage at the very top of his midline scar. The wound VAC dressing remains on the right-sided drain site but there is minimal fluid in the tubing or in the canister. His G and J tubes in the left upper quadrant remain in place. There are no new laboratory studies today. IMPRESSION: Recurrent emesis times one earlier today with a duodenal fistula which seems to be drying up nicely at this point. PLAN: I will let the patient continue his regular diet. I advised him to be cautious of what foods might be causing him to have problems with obstruction of his gastric outflow. He can continue with the tube feedings but says he has not had any in a day and is drinking Ensure instead and this is a fine substitute. It is probably reasonable to consider removing the wound VAC at some point and just allowing him to have a small dressing on the drain site and I will consider this tomorrow. ALBERTO
[2017-10-06] MEDS: ATORVASTATIN 20 MG TAB PO SCH (20:02)
[2017-10-06] MEDS: ENOXAPARIN 40 MG/0.4 ML SYRINGE (J1650) SC SCH (20:02)
[2017-10-06 22:00] VITALS: BP 121/68
[2017-10-07] MEDS: METOPROLOL TART 25 MG TABLET PO SCH ×3 (05:30→20:21)
[2017-10-07] MEDS: NORCO, ANEXSIA 5/325MG TABLET (HYDROcodone/ACETAMINOPHEN) PO PRN ×2 (05:30→20:22)
[2017-10-07 06:00] VITALS: BP 119/68
[2017-10-07] MEDS: IPRATROPIUM 0.5MG/ALBUTEROL 2.5MG INH SOL UD 3ML (DUONEB)(J7620) NEB SCH ×4 (08:28→20:00)
[2017-10-07] MEDS: PANTOPRAZOLE 40MG TAB (PROTONIX) PO SCH ×2 (08:54→20:21)
[2017-10-07] MEDS: ASPIRIN 81 MG ENTERIC TAB PO SCH (08:54)
[2017-10-07] MEDS: ISOSORBIDE MON. (IMDUR) 30 MG XR TAB PO SCH (08:57)
[2017-10-07 14:00] VITALS: BP 117/53
[2017-10-07] MEDS: ENOXAPARIN 40 MG/0.4 ML SYRINGE (J1650) SC SCH (20:20)
[2017-10-07] MEDS: ATORVASTATIN 20 MG TAB PO SCH (20:21)
[2017-10-07 22:00] VITALS: BP 118/66
--- NOTE | 2017-10-08 01:17 | IPN ---
DATE OF SERVICE: 10/07/2017 HISTORY: The patient is a 66-year-old patient of Dr. Everett who is here for treatment of a duodenal fistula following a repair of a perforated duodenal ulcer over a month and a half ago. He has had occasional problems with poor gastric emptying requiring gastric drainage through his G-tube. He apparently had 400 mL drained out last night, though on questioning was not nauseous and did not have significant pain, but just a feeling of fullness. VITAL SIGNS: His vitals are stable and he is afebrile. Intake and output: Yesterday he had 1140 in with 2250 out. His intake and output is recorded only partially as he is voiding in the toilet and drinking ad carolyn. PHYSICAL EXAMINATION: Shows that his VAC drain is filling up, but has not been changed in perhaps 4 or 5 days so the output is clearly diminished. His G-tube and J tube are currently clamped. His abdomen is soft and without tenderness. The patient had no labs today. IMPRESSION: 1. Duodenal fistula with diminished output. 2. Occasional problems with possible worsened gastric emptying of unclear cause. PLAN: The patient will be continued on his regular diet. He was encouraged to leave the G-tube clamped as much as possible. It may be time to consider removing the wound vacuum-assisted closure (VAC) and just placing a small dressing over the fistula site. I will leave this to Dr. Everett to make this decision.
[2017-10-08 06:00] VITALS: BP 122/67
[2017-10-08] MEDS: METOPROLOL TART 25 MG TABLET PO SCH ×3 (06:04→20:42)
[2017-10-08] MEDS: IPRATROPIUM 0.5MG/ALBUTEROL 2.5MG INH SOL UD 3ML (DUONEB)(J7620) NEB SCH ×4 (07:06→20:00)
[2017-10-08] MEDS: ISOSORBIDE MON. (IMDUR) 30 MG XR TAB PO SCH (08:39)
[2017-10-08] MEDS: PANTOPRAZOLE 40MG TAB (PROTONIX) PO SCH ×2 (08:39→20:43)
[2017-10-08] MEDS: ASPIRIN 81 MG ENTERIC TAB PO SCH (08:39)
[2017-10-08] MEDS: ACETAMINOPHEN TAB 650MG DOSE (2X325MG) PO PRN (12:00)
[2017-10-08 14:16] VITALS: BP 108/59
[2017-10-08] MEDS: ATORVASTATIN 20 MG TAB PO SCH (20:43)
[2017-10-08] MEDS: ENOXAPARIN 40 MG/0.4 ML SYRINGE (J1650) SC SCH (20:43)
[2017-10-09] MEDS: zolPIDEM TARTRATE 5 MG TAB PO PRN (03:00)
[2017-10-09] MEDS: ACETAMINOPHEN TAB 650MG DOSE (2X325MG) PO PRN ×2 (03:03→11:22)
[2017-10-09 06:00] VITALS: BP 121/70
[2017-10-09] MEDS: METOPROLOL TART 25 MG TABLET PO SCH ×2 (06:34→14:50)
[2017-10-09] MEDS: IPRATROPIUM 0.5MG/ALBUTEROL 2.5MG INH SOL UD 3ML (DUONEB)(J7620) NEB SCH ×2 (07:09→11:05)
[2017-10-09] MEDS: ISOSORBIDE MON. (IMDUR) 30 MG XR TAB PO SCH (09:27)
[2017-10-09] MEDS: ASPIRIN 81 MG ENTERIC TAB PO SCH (09:27)
[2017-10-09] MEDS: PANTOPRAZOLE 40MG TAB (PROTONIX) PO SCH (09:27)
[2017-10-09] MEDS ORDERED: NORCO, ANEXSIA 5/325MG TABLET (HYDROcodone/ACETAMINOPHEN) PO ONE (11:45)
[2017-10-09 14:00] VITALS: BP 131/72
[2017-10-09 14:50] VITALS: BP 131/72
--- NOTE | 2017-10-16 10:24 | DS.PDOC ---
Discharge Summary General Date of Admission Aug 15, 2017 at 23:14 Date of Discharge 10/09/2017 Attending Physician: ORA SIMPSON MD Specialist/Consultants Involve Taya Pickens Slezka, [employer] Discharge Summary PROCEDURES PERFORMED DURING STAY: (08/15/17) Exploratory Laparotomy Omental patch repair duodenal ulcer perforation lateral duodenostomy pyloric exclusion gastrojejunostomy feeding jejunostomy tube placement bilateral chest tube placement left subclavian catheter placement (08/23/17) Exploratory Laparotomy, Repair of Leak at Duodenostomy Site, Placement of Retrograde Internal Gastroduodenostomy Drain ADMITTING DIAGNOSES: 1. Sepsis 2. Perforated viscus, possibly perforated duodenal ulcer 3. Bilateral pneumothorax, pneumomediastinum DISCHARGE DIAGNOSES: 1. Duodenal fistula, controlled 2. Perforated duodenal ulcer. 3. Sepsis resolved 4. Bilateral pneumothorax resolved 5. Malnutrition, improving 6. Coronary artery disease, stable 7. Transient ventricular tachycardia resolved 8. Acute debility, improved 9. Respiratory failure resolved COMPLICATIONS/CHIEF COMPLAINT: Perforated Duodenal Ulcer. HISTORY OF PRESENT ILLNESS: See HPI HOSPITAL COURSE: Patient presented to the emergency room quite sick appearing, septic. He has evidence of peritonitis with pneumoperitoneum. He also had bilateral pneumothorax, pneumomediastinum, a lot of subcutaneous air in his neck. I saw him in the emergency room. We did an upper GI series, esophagram to rule out esophageal perforation with a bilateral pneumothorax. This returned as negative. I spoke to anesthesia as well as to critical care and got him ready for the operating room. He was promptly brought to the operating room. He underwent abdominal exploration. Significant findings included large perforation of the first portion of the duodenal bulb which could not be closed her patch primarily. An omental patch was placed close the hole in the retrograde duodenal ostomy tube was placed with multiple drains in the abdomen as well as the feeding jejunostomy. Bilateral chest tubes were placed. He was kept intubated and brought to the ICU. He remained stable. The bilateral numerous tarsus resolved. The chest tubes were able to be removed by postoperative day 2. He was subsequently extubated. Gradually his subcutaneous emphysema over the neck has also resolved. He is duodenostomy tube has been functioning. He was made nothing by mouth with continued gastric decompression with nasogastric tube. The jejunostomy tube was used for enteral feeding. He seems to be doing well and was subsequently transferred to the floor. Unfortunately right about a week after his initial surgery had increased drainage of bilious fluid in his duodenostomy tube. Though he was not sick he had an uncontrolled drainage from his drains and duodenostomy to his brought back to the operating room. It turned out he most likely have had in a uli loop obstruction dislodging the retrograde jejunostomy. This created a new problem or there is a new hole in the second portion of the duodenum. This was fixed in the retrograde gastrojejunostomy was used to try to attempt to drain away from the area. He already has his pylorus excluded. He was successfully extubated and was brought to the progressive care unit for close monitoring as well as for monitoring of the drain output. He remained stable though the retrograde jejunostomy did not really function as we intended to us we were getting only minimal amount from this. We did get stuff from the gastrostomy. Once we know that he was stable and his ileus is resolving resume feeding through the jejunostomy feeding tube. I then asked Dr. Kim to attempt to replace the retrograde jejunostomy to a Conway internal drain. We will plan the use a regular jejunostomy feeding tube to try to see if we can get it to drain better. Unfortunately we were not successful this. We just left the gastrostomy tube which we did for drainage of the stomach contents. His nasogastric tube was removed. Eventually we ended up with a controlled duodenal fistula with the right-sided YORDY drain controlling the output from the duodenal hole. Initially this was high output but eventually decreased in a Couple of weeks. Initially we made him nothing by mouth with TPN administration as we were able to get better control of the duodenal fistula he was resumed enteral feeding through the jejunostomy feeding tube and passed the fistula output decreases he was started on clear liquids and then on soft diet which he was on by the time of discharge. Also during the time that he was sick at about the second surgery had some transient episodes of ventricular tachycardia though he remained hemodynamically stable and he was seen by Dr. Cole during this time. He was placed back on his aspirin and on his beta lisa which was adjusted. Eventually this just resolve by itself. The patient is was probably part of some mild sepsis presentation. He did have one episode of chest pain about his first month of admission when nothing else was going on. I worked him up with a repeat CT showing no undrained collection. This resolved with nitroglycerin administration and he was otherwise asymptomatic to rest of the time. He would have intermittent left flank and back pain which at one time got worse and made me concerned of an intra-abdominal process but repeat CT at that time was also negative. We also did a CT of the chest which was also negative for pulmonary embolism. Eventually his discharge was held up with regards to what to do with the Oziel -Gilbert drain. This would leak around the drain. We were able to control this by a cutting off the tubal to drain and placing the drain on suction using the wound VAC machine. We didn't have to apply for approval of this method for him to go home with which eventually with but due to the patient's financial constraints he could not afford the copayments 4 to set up. Eventually in the day of discharge the wound VAC was discontinued and I just placed a urostomy tube to catch the drainage. At this time we were only able to drain anywhere from 100-300 mL every wound VAC dressing changes which is every 3 days. On discharge patient is able to tolerate some oral diet though he still has some episodes where he feels full and this is being managed by venting or open up the gastrostomy tube. He is ambulating by himself. His albumin is still low at 2 but these have prealbumin has gone up to near normal. He is intermittently getting some jejunostomy tube feedings. By the time of discharge he was taking additional ensure that he does not need the jejunostomy tube. The Oziel-Gilbert drain over the right upper quadrant area was discontinued and a urostomy tube was placed. He will need close follow-up as an outpatient with regards to hopefully resolution of the duodenal fistula. He has been taking twice a day Protonix. DISCHARGE MEDICATIONS: Please see below. ALLERGIES: Please see below. PHYSICAL EXAMINATION ON DISCHARGE: VITAL SIGNS: Please see below. GENERAL: Comfortable HEENT: Anicteric sclerae NECK: Short, supple, no lymphadenopathy, no jugular venous distention CARDIOVASCULAR EXAMINATION: Regular heart rate and rhythm RESPIRATORY EXAMINATION: Are prepped sounds with auscultation bilaterally ABDOMINAL EXAMINATION: Round, soft, nondistended and nontender and palpation. Midline incision is fully healed except for about a 1.5-2 cm portion at the top which remains open and sometimes has some intermittent drainage from it. This has been just being covered with dry gauze and changed as needed. He has a gastrostomy tube. He has a jejunostomy feeding tube also in the left side currently not being used. He has a urostomy bag over the right upper quadrant to duodenal fistula site EXTREMITIES: No edema SKIN: No jaundice, warm and moist NEUROLOGICAL EXAMINATION: Awake, alert, oriented PSYCHIATRIC EXAMINATION: Regular heart rate and rhythm LABORATORY DATA: Please see below. IMAGING: Multiple CT scan of the abdomen and pelvis, CT of the chest, multiple chest x-rays abdominal x-rays PROGNOSIS: Fair ACTIVITY: As tolerated. DIET: Low residue, soft diet. DISCHARGE PLAN: Discharged to home with visiting nurses set up for continued wound care and close follow-up. Follow-up with me in 2 weeks DISPOSITION: 06 Home Health Service. DISCHARGE INSTRUCTIONS: 1. As above 2. Replace dry gauze dressing on the open portion of the midline wound as needed 3. Record output of duodenal fistula 4. Call if with increasing abdominal pain, fever, nausea or vomiting 3. Open gastrostomy tube if with abdominal distention, nausea ITEMS TO FOLLOWUP ON ON OUTPATIENT: 1. We'll arrange for a follow-up CT on palpation follow-up DISCHARGE CONDITION: Stable. TIME SPENT ON DISCHARGE: Greater than 60 minutes. Discharge Medications Scheduled Aspirin (Aspir-81) 81 Mg Tab, 81 MG PO DAILY, (Reported) Atorvastatin Calcium (Atorvastatin Calcium) 40 Mg Tab, 40 MG PO QHS, (Reported) Cholecalciferol (Vitamin D3) 1,000 Unit Tab, 1,000 UNIT PO DAILY, (Reported) Isosorbide Mononitrate (Isosorbide Mononitrate ER) 30 Mg Tab, 30 MG PO DAILY, ( Reported) Metoprolol Tartrate (Metoprolol Tartrate) 25 Mg Tab, 25 MG PO BID, (Reported) Multivitamins *[facility] STOCKED* (Thera M Plus *[facility] STOCKED*) 1 Tab Tab, 1 TAB PO DAILY, (Reported) Pantoprazole Sodium (Pantoprazole Sodium) 40 Mg Tab, 40 MG PO BID Scheduled PRN Acetaminophen/Hydrocodone (Perkins, Anexsia 5/325) 1 Tab Tab, 1-2 TAB PO Q6HP PRN for SEVERE PAIN (PS 8-10) Cyclobenzaprine HCl (Cyclobenzaprine HCl) 10 Mg Tab, 10 MG PO DAILY PRN for MUSCLE SPASMS, (Reported) Nitroglycerin (Nitrostat) 0.4 Mg Subl, 0.4 MG SL Q5MP PRN for CHEST PAIN, ( Reported) Allergies Coded Allergies: Penicillins (Verified Adverse Reaction, Intermediate, STOMACH ULCERS MANY YEARS AGO, 09/03/17) ORA SIMPSON MD Oct 16, 2017 10:24
--- NOTE | 2017-10-16 11:14 | ROOR ---
Patient Name: Adilson Dill Procedure Date: 09/20/2017 11:16 AM Date of : 1950 Age: 66 Room: Main OR Gender: Male Note Status: Patient Intake Representative Override Procedure: Upper GI endoscopy Indications: Assessment following gastrojejunostomy Providers: Rambo Lorenz MD Referring MD: Jayme Everett MD Requesting Provider: Medicines: Monitored Anesthesia Care Complications: No immediate complications. Procedure: Pre-Anesthesia Assessment: - Prior to the procedure, a History and Physical was performed, and patient medications and allergies were reviewed. The patient is competent. The risks and benefits of the procedure and the sedation options and risks were discussed with the patient. All questions were answered and informed consent was obtained. Patient identification and proposed procedure were verified by the physician, the nurse and the shell worker in the procedure room. Mental Status Examination: alert and oriented. Airway Examination: normal oropharyngeal airway and neck mobility. CV Examination: regular rate and rhythm. Prophylactic Antibiotics: The patient does not require prophylactic antibiotics. Prior Anticoagulants: The patient has taken no previous anticoagulant or antiplatelet agents. ASA Grade Assessment: III - A patient with severe systemic disease. After reviewing the risks and benefits, the patient was deemed in satisfactory condition to undergo the procedure. The anesthesia plan was to use monitored anesthesia care (MAC). Immediately prior to administration of medications, the patient was re-assessed for adequacy to receive sedatives. The heart rate, respiratory rate, oxygen saturations, blood pressure, adequacy of pulmonary ventilation, and response to care were monitored throughout the procedure. The physical status of the patient was re-assessed after the procedure. The Endoscope was introduced through the mouth, and advanced to the afferent and efferent jejunal loops. The upper GI endoscopy was accomplished without difficulty. The patient tolerated the procedure well. Findings: One benign-appearing, intrinsic stenosis was found in the distal esophagus. This stenosis was mildly severe and measured 2 cm (inner diameter) x less than one cm (in length). There was evidence of an intact gastrostomy with a patent G-tube present in the gastric body. This was characterized by healthy appearing mucosa. Evidence of a gastrojejunostomy was found in the greater curvature of the stomach. This was characterized by healthy appearing mucosa. Scope was advanced down both the afferent and efferent limbs. There was no significant narrowing identified in the inspected sections. Evidence of a pyloric closure was found in the gastric antrum. This was characterized by healthy appearing mucosa and an intact appearance. Impression: - Benign-appearing esophageal stenosis. - Intact gastrostomy with a patent G-tube present characterized by healthy appearing mucosa. - A gastrojejunostomy was found, characterized by healthy appearing mucosa. - A pyloric closure were found, characterized by an intact appearance and healthy appearing mucosa. - No specimens collected. Recommendation: - [facility] to [facility] care. Attending Participation: I personally performed the entire procedure. Rambo Lorenz MD 09/21/2017 12:22:44 PM Number of Addenda: 0 Note Initiated On: 09/20/2017 11:16 AM Estimated Blood Loss: Estimated blood loss: none.
== END 2017-10-09 15:35 | disposition home health service (06) | DRG 853 ==
LOC: EDBD 12:57 → M ED 12:57 → M ED INP 23:14 → M ICU 08-16 00:20 → M MSPAV 08-19 14:00 → M PCU 08-23 19:30 → M ICU 08-23 21:52 → M PCU 08-26 22:47 → M MS5PR 09-06 13:25
PROVIDERS: ADMIT Surgery; ATTEND Surgery
PROC: 0DQ70ZZ Repair Stomach, Pylorus, Open Approach (ICD-10-PCS; 2017-08-15)
PROC: 0D1 Gastrointestinal System, Bypass (ICD-10-PCS; 2017-08-15)
PROC: 0W9B30Z Drainage of Left Pleural Cavity with Drainage Device, Percutaneous Approach (ICD-10-PCS; 2017-08-15)
PROC: 0W9930Z Drainage of Right Pleural Cavity with Drainage Device, Percutaneous Approach (ICD-10-PCS; 2017-08-15)
PROC: 0DHA0UZ Insertion of Feeding Device into Jejunum, Open Approach (ICD-10-PCS; 2017-08-15)
PROC: 5A1935Z Respiratory Ventilation, Less than 24 Consecutive Hours (ICD-10-PCS; 2017-08-15)
PROC: 0DQ90ZZ Repair Duodenum, Open Approach (ICD-10-PCS; principal; 2017-08-15 16:19)
PROC: 0DQ90ZZ Repair Duodenum, Open Approach (ICD-10-PCS; 2017-08-23)
PROC: 02HV33Z Insertion of Infusion Device into Superior Vena Cava, Percutaneous Approach (ICD-10-PCS; 2017-08-24)
PROC: 0DJ08ZZ Inspection of Upper Intestinal Tract, Via Natural or Artificial Opening Endoscopic (ICD-10-PCS; 2017-09-20)
DX: A41.9 Sepsis, unspecified organism (principal); K26.1 Acute duodenal ulcer with perforation; K65.0 Generalized (acute) peritonitis; J95.821 Acute postprocedural respiratory failure; J93.9 Pneumothorax, unspecified; T85.598A Other mechanical complication of other gastrointestinal prosthetic devices, implants and grafts, initial encounter; I47.2 Ventricular tachycardia; T81.83XA Persistent postprocedural fistula, initial encounter; K31.6 Fistula of stomach and duodenum; E46 Unspecified protein-calorie malnutrition; I25.10 Atherosclerotic heart disease of native coronary artery without angina pectoris; J98.2 Interstitial emphysema; Z79.82 Long term (current) use of aspirin; Z79.899 Other long term (current) drug therapy; Z88.0 Allergy status to penicillin; I10 Essential (primary) hypertension; E78.00 Pure hypercholesterolemia, unspecified; I25.2 Old myocardial infarction; F17.200 Nicotine dependence, unspecified, uncomplicated; Y83.3 Surgical operation with formation of external stoma as the cause of abnormal reaction of the patient, or of later complication, without mention of misadventure at the time of the procedure

== ENCOUNTER → 2017-10-16 | Outpatient (CLI) | payer MEDICARE ==
[~2017-10-16] MED LIST changes: +ATOR40TA75 PO; +NORCOTAB PO; +OMEP40CA2 PO; +PANT40TA2 PO
[2017-10-16 16:42] LABS: BASO # 0.1 10^3/uL (0.0-0.2); BASO % 1.1 % (0.0-1.0); EOS # 0.1 10^3/uL (0.0-0.50); EOS % 1.6 % (0.0-3.0); IMMATURE GRANULOCYTE % 0.1 % (0-0); LYMPH # 3.2 10^3/uL (1.5-4.5); LYMPH % 41.8 % (24.0-44.0); MEAN CORPUSCULAR HEMOGLOBIN 29.5 pg (27.0-33.0); MONO # 0.6 10^3/uL (0.0-0.8); MONO % 8.1 % (0.0-5.0); NEUTROPHILS # 3.6 10^3/uL (1.8-7.7); NEUTROPHILS % 47.3 % (36.0-66.0); PLATELET COUNT, AUTOMATED 405 10^3/uL (150-450); RED CELL DISTRIBUTION WIDTH 15.2 % (11.5-14.5); WHITE BLOOD COUNT 7.6 10^3/uL (4.0-10.0)
[2017-10-16 17:45] LABS: ALBUMIN 2.9 GM/DL (3.2-5.2); ALBUMIN/GLOBULIN RATIO 0.71 (1.00-1.93); ALKALINE PHOSPHATASE 117 U/L (45-117); ALT/SGPT 37 U/L (12-78); ANION GAP 6 MEQ/L (8-16); AST/SGOT 21 U/L (7-37); BILIRUBIN,TOTAL 0.5 MG/DL (0.2-1.0); BLOOD UREA NITROGEN 18 MG/DL (7-18); CALCIUM LEVEL 8.8 MG/DL (8.8-10.2); CARBON DIOXIDE LEVEL 29 MEQ/L (21-32); CHLORIDE LEVEL 107 MEQ/L (98-107); CREATININE FOR GFR 0.94 MG/DL (0.70-1.30); GLOMERULAR FILTRATION RATE > 60.0 (>49); GLUCOSE, FASTING 93 MG/DL (80-110); SODIUM LEVEL 142 MEQ/L (136-145)
== END ==
LOC: M LAB 16:06
PROVIDERS: ATTEND Surgery
DX: K26.1 Acute duodenal ulcer with perforation (principal)

== ENCOUNTER → 2017-10-22 | Outpatient (CLI) | payer MEDICARE ==
[~2017-10-22] MED LIST changes: +GASTROGRAFIN SOLUTION 30ML (Q9963) As Ordered ONE; +GLUCAGON FOR INJ 1 MG VIAL (J1610) As Ordered ONE; +ISOVUE-370 76% 100ML VIAL (Q9967) As Ordered ONE; +VoLumen 0.1% SUSPENSION 450ML BOTTLE As Ordered ONE
--- NOTE | 2017-10-22 18:20 | REP ---
CT ABDOMEN AND PELVIS WITH IV CONTRAST: TECHNIQUE: Axial contrast enhanced images from the lung bases to the pubic symphysis using 100 mL Isovue 370 intravenous contrast material with multiplanar reformations. Visualized lung bases demonstrate no infiltrate. Liver demonstrates a cyst in the left lobe. Spleen, adrenals, pancreas are unremarkable. There is a calculus in the right renal pelvis measuring 7 mm in maximum diameter, without right-sided hydronephrosis. An intrarenal calculus is seen in the lower pole of the left kidney without hydronephrosis, measuring approximately 1.5 cm in diameter. There are atherosclerotic calcifications of the abdominal aorta without aneurysm. A gastrostomy tube is again noted. There is an umbilical hernia unchanged. I do not see significant adenopathy. In the right upper quadrant there are phlegmonous changes again seen with a few tiny pockets of air and some mild free fluid. The finding are similar to the prior exam. There is an area of air and fluid in the anterior abdominal wall, in the midline at the level of the stomach which may represent a small abscess. This measures about 3.4 cm in maximum diameter. No other definite focal abscess collection is seen. I do no see any significant pelvic abnormality. IMPRESSION: Small air and fluid collection in the anterior abdominal wall in the midline at the level of the stomach, may represent an abscess slightly greater than 3 cm in diameter. A few small pockets of free air in the right upper quadrant where there were previously drainage tubes with some mild free fluid as well. No other definite abscess collection is seen. There is a calculus in the right renal pelvis 7 mm in maximum diameter without right hydronephrosis. Left intrarenal calculus. Signed by Collin Enrique MD 10/24/2017 09:00 A
== END ==
LOC: M RAD 14:34
PROVIDERS: ATTEND Surgery
DX: K26.1 Acute duodenal ulcer with perforation (principal)
CPT/HCPCS: 74177; J1610; Q9963; Q9967

== ENCOUNTER 2018-12-03 08:34 | Emergency (ER) | payer MEDICARE, MEDICAID ==
[~2018-12-03] VITALS: Ht 177.8 cm; Wt 96.5 kg
[~2018-12-03 08:34] MED LIST changes: +ACET500T15 PO; -ACET50TAOT PO; -GASTROGRAFIN SOLUTION 30ML (Q9963) As Ordered ONE; -GLUCAGON FOR INJ 1 MG VIAL (J1610) As Ordered ONE; -ISOVUE-370 76% 100ML VIAL (Q9967) As Ordered ONE; +MELO15TA28 PO; -MELO15TA4 PO; -PANT40TA2 PO; +PANT40TA3 PO; -VoLumen 0.1% SUSPENSION 450ML BOTTLE As Ordered ONE
[2018-12-03 08:51] VITALS: BP 127/76
[2018-12-03] MEDS ORDERED: CENTCHW4 PO (09:10)
[2018-12-03] MEDS ORDERED: NS 1,000 ML IV ONE (09:30)
[2018-12-03] MEDS ORDERED: METOCLOPRAMIDE INJ 10MG/2ML VIAL (J2765) IV ONE (09:30)
[2018-12-03] MEDS: PANTOPRAZOLE 40MG INJ (PROTONIX) (C9113) IV ONE ×2 (09:39→09:46)
[2018-12-03 09:45] LABS: BASO # 0.1 10^3/uL (0.0-0.2); BASO % 0.7 % (0.0-1.0); EOS % 0.3 % (0.0-3.0); HEMATOCRIT 32.7 % (42.0-52.0); HEMOGLOBIN 10.9 g/dl (13.5-17.5); LYMPH # 1.6 10^3/uL (1.5-4.5); LYMPH % 14.9 % (24.0-44.0); MEAN CORPUSCULAR HEMOGLOBIN 31.4 pg (27.0-33.0); MEAN CORPUSCULAR HGB CONC 33.3 g/dl (32.0-36.5); MEAN CORPUSCULAR VOLUME 94.2 fl (80.0-96.0); MONO # 0.6 10^3/uL (0.0-0.8); MONO % 5.8 % (0.0-5.0); NEUTROPHILS # 8.3 10^3/uL (1.8-7.7); NEUTROPHILS % 77.9 % (36.0-66.0); PLATELET COUNT, AUTOMATED 279 10^3/uL (150-450); RED BLOOD COUNT 3.47 10^6/uL (4.30-6.10); WHITE BLOOD COUNT 10.6 10^3/uL (4.0-10.0)
[2018-12-03] MEDS: GASTROGRAFIN SOLUTION 30ML PO SCH ×2 (09:47→10:15)
[2018-12-03 09:54] LABS: APPEARANCE, URINE CLEAR (CLEAR); BACTERIA, URINE AUTO 1+ (NEGATIVE); BILIRUBIN, URINE AUTO NEGATIVE (NEGATIVE); BLOOD, URINE BLOOD 2+ (NEGATIVE); COLOR, URINE YELLOW (YELLOW); GLUCOSE, URINE (UA) AUTO NEGATIVE (NEGATIVE); KETONE, URINE AUTO TRACE mg/dL (NEGATIVE); LEUKOCYTE ESTERASE, URINE AUTO TRACE (NEGATIVE); MUCUS, URINE SMALL (NEGATIVE); NITRITE, URINE AUTO NEGATIVE (NEGATIVE); PROTEIN, URINE AUTO NEGATIVE (NEGATIVE); RBC, URINE AUTO 20 /HPF (0-3); SPECIFIC GRAVITY URINE AUTO 1.017 (1.002-1.035); SQUAMOUS EPITHELIAL CELL UR AU 0 /HPF (0-6); UROBILINOGEN, URINE AUTO 0.2 mg/dL (0.0-2.0); WBC, URINE AUTO 11 /HPF (0-3)
[2018-12-03 10:11] LABS: ALBUMIN 2.9 GM/DL (3.2-5.2); ALT/SGPT 15 U/L (12-78); AMYLASE 19 U/L (25-115); BILIRUBIN,TOTAL 0.4 MG/DL (0.2-1.0); BLOOD UREA NITROGEN 62 MG/DL (7-18); CALCIUM LEVEL 8.2 MG/DL (8.8-10.2); CARBON DIOXIDE LEVEL 21 MEQ/L (21-32); CHLORIDE LEVEL 115 MEQ/L (98-107); CREATININE FOR GFR 1.26 MG/DL (0.70-1.30); ETHYL ALCOHOL (ETHANOL) 0.003 % (0.000-0.010); GLOMERULAR FILTRATION RATE > 60.0 (>49); GLUCOSE, FASTING 99 MG/DL (70-100); LIPASE 55 U/L (73-393); POTASSIUM SERUM 5.3 MEQ/L (3.5-5.1); SODIUM LEVEL 145 MEQ/L (136-145); TOTAL PROTEIN 6.2 GM/DL (6.4-8.2)
[2018-12-03] MEDS ORDERED: ISOVUE-370 76% 100ML VIAL (Q9967) As Ordered ONE (10:37)
--- NOTE | 2018-12-03 13:33 | REP ---
CT ABDOMEN AND PELVIS WITH IV AND ORAL CONTRAST: HISTORY: Diffuse abdomen pain, nausea vomiting diarrhea. Black stools. CT CONTRAST DOSE: 100 mL of intravenous Isovue 370. COMPARISON STUDY: October 22, 2017. CT FINDINGS: Preliminary digital catshovel driver radiograph demonstrates a few dilated small bowel loops in the central abdomen. Air and stool are seen in the colon. The lung bases are clear on axial CT images. The liver and the spleen are normal in size homogeneous in texture. There is a small stable cyst in the left lobe. The patient appears to be status post gastrojejunostomy. There is some mural thickening in the jejunal loops at the gastrojejunostomy. There is no evidence of free air or abnormal fluid collection. There is some bowel wall hyper-enhancement in the jejunal loops which may reflect inflammation. Oral contrast is seen distal to this in the normal-caliber joule jejunal and ileal loops. Some opacification of the right colon is seen. There is right-sided hydronephrosis, moderate in degree. The right proximal ureter is dilated to the level of the L3-4 intervertebral disc where there is a large right mid ureteral calculus. This measures up to 9 mm in size. There is periureteral edema. On the left there are several intrarenal calculi including a large staghorn type calculus in the lower pole collecting system measuring 17 mm in greatest diameter. No left-sided hydronephrosis is seen. Urinary bladder is empty. Prostate and seminal vesicles are unremarkable. IMPRESSION: 1. 9 mm obstructing right mid ureteral calculus with moderate hydronephrosis. 2. Intrarenal calculi left kidney without hydronephrosis including a 17 mm intrarenal calculus in the left kidney. 3. Status post gastro jejunostomy with mural thickening and mild dilation of the proximal jejunal loops at the gastrojejunostomy site. This compatible with inflammation and/or enteritis. Electronically Signed by Tim Domingo MD 12/03/2018 05:33 P
[2018-12-03] MEDS ORDERED: ONDA4TAB6 PO (13:37)
[2018-12-03] MEDS ORDERED: ANUC25SU PR (13:37)
[2018-12-03] MEDS ORDERED: NORCOTAB PO (13:37)
[2018-12-03] MEDS ORDERED: CIPR-249 PO (13:37)
[2018-12-03] MEDS ORDERED: FLOM0.4C39 PO (13:37)
--- NOTE | 2018-12-04 17:29 | ECGEPIP ---
Stationary ECG Study [facility] - ED Test Date: 2018-12-03 Pat Name: CAMERON GARBER Department: Room: - Gender: M English Composition Teacher: markos : 1950 Requested By: AURELIO Matthews PA-C Order Number: [id number] Reading MD: Kenya Hernández Measurements Intervals [place] Rate: 91 P: 10 SD: 160 QRS: -11 QRSD: 110 T: 1 QT: 355 QTc: 439 Interpretive Statements SINUS RHYTHM INFERIOR MYOCARDIAL INFARCTION, PROBABLY OLD INCREASED RATE 09/14/17 Electronically Signed On 12-04-2018 17:28:52 EST by Kenya Hernández
== END 2018-12-03 14:02 | disposition home or self-care (01) ==
LOC: EDBD 08:34 → M ED 08:34
DX: N39.0 Urinary tract infection, site not specified (principal); N20.1 Calculus of ureter; N13.30 Unspecified hydronephrosis; K52.9 Noninfective gastroenteritis and colitis, unspecified; K64.8 Other hemorrhoids; I10 Essential (primary) hypertension; K21.9 Gastro-esophageal reflux disease without esophagitis; E78.00 Pure hypercholesterolemia, unspecified; M54.9 Dorsalgia, unspecified; F99 Mental disorder, not otherwise specified; I25.2 Old myocardial infarction; F17.200 Nicotine dependence, unspecified, uncomplicated; Z79.899 Other long term (current) drug therapy; Z79.82 Long term (current) use of aspirin; Z88.0 Allergy status to penicillin
CPT/HCPCS: 74177; 80053; 82150; 83605; 83690; 85025; 86850; 86900; 86901; 93005; 96374; 99284; G0480; J2765; Q9963; Q9967

== ENCOUNTER 2018-12-09 08:56 | Inpatient (IN) | payer MEDICARE, MEDICAID ==
[~2018-12-09] VITALS: Ht 180.3 cm; Wt 96.0 kg
[~2018-12-09 08:56] MED LIST changes: +ANUC25SU PR; +CENTCHW4 PO; +CIPR-249 PO; +FLOM0.4C39 PO; +ONDA4TAB6 PO
[2018-12-09] MEDS ORDERED: NS 1,000 ML IV ONE (09:30)
[2018-12-09 10:01] LABS: BASO % 0.4 % (0.0-1.0); EOS # 0.1 10^3/uL (0.0-0.50); EOS % 0.7 % (0.0-3.0); HEMATOCRIT 15.5 % (42.0-52.0); LYMPH # 2.1 10^3/uL (1.5-4.5); LYMPH % 20.7 % (24.0-44.0); MEAN CORPUSCULAR HEMOGLOBIN 31.7 pg (27.0-33.0); MEAN CORPUSCULAR HGB CONC 32.9 g/dl (32.0-36.5); MEAN CORPUSCULAR VOLUME 96.3 fl (80.0-96.0); MONO # 0.8 10^3/uL (0.0-0.8); NEUTROPHILS % 68.4 % (36.0-66.0); PLATELET COUNT, AUTOMATED 305 10^3/uL (150-450); RED BLOOD COUNT 1.61 10^6/uL (4.30-6.10); WHITE BLOOD COUNT 10.3 10^3/uL (4.0-10.0)
[2018-12-09 10:05] LABS: HEMOGLOBIN 5.1 g/dl (13.5-17.5)
[2018-12-09 10:36] LABS: ALBUMIN 2.5 GM/DL (3.2-5.2); ALT/SGPT 14 U/L (12-78); BILIRUBIN,DIRECT 0.2 MG/DL (0.0-0.2); BILIRUBIN,TOTAL 0.4 MG/DL (0.2-1.0); BLOOD UREA NITROGEN 35 MG/DL (7-18); CALCIUM LEVEL 7.8 MG/DL (8.8-10.2); CARBON DIOXIDE LEVEL 23 MEQ/L (21-32); CHLORIDE LEVEL 104 MEQ/L (98-107); CPK CREATINE PHOSPHOKINASE 44 U/L (39-308); CREATININE FOR GFR 1.25 MG/DL (0.70-1.30); GLOMERULAR FILTRATION RATE > 60.0 (>49); GLUCOSE, FASTING 108 MG/DL (70-100); LIPASE 120 U/L (73-393); MB/CK RELATIVE INDEX 3.41 (< OR =4); POTASSIUM SERUM 4.2 MEQ/L (3.5-5.1); SODIUM LEVEL 137 MEQ/L (136-145); TOTAL PROTEIN 5.2 GM/DL (6.4-8.2); TROPONIN I 0.02 NG/ML (< 0.10)
--- NOTE | 2018-12-09 10:38 | REP ---
Clinical: Abdominal pain. Rule out pneumoperitoneum. Technique: Supine and cross-table lateral views of the abdomen and pelvis. Findings: Distended air-filled loops of small and large bowel with moderate fecal stasis are identified throughout the abdomen and pelvis. The cross-table lateral view demonstrates a large superior air-fluid level which when compared to recent CT dated 12/03/2018 corresponds to gastric bubble. No obvious free air identified. Skeletal structures demonstrate age-related degenerative changes. Impression: Bowel gas pattern suggests ileus. No evidence for obstruction or obvious perforation. Electronically Signed by Demarcus Green MD 12/09/2018 10:29 A
[2018-12-09] MEDS ORDERED: PANTOPRAZOLE 40MG INJ (PROTONIX) (C9113) IV ONE (10:45)
[2018-12-09] MEDS ORDERED: ISOVUE-370 76% 100ML VIAL (Q9967) As Ordered ONE (11:00)
--- NOTE | 2018-12-09 12:29 | REP ---
CT ABDOMEN AND PELVIS WITH IV CONTRAST: TECHNIQUE: Axial contrast enhanced images from the lung bases to the pubic symphysis using 100 mL Isovue 370 intravenous contrast material with multiplanar reformations. Visualized lung bases demonstrate mild fibrotic changes with a tiny calcified granuloma on the right middle lobe. The liver demonstrates a small cyst in the left lobe. The gallbladder is grossly unremarkable. Spleen, adrenals, and pancreas are unremarkable. Right kidney demonstrates moderate hydronephrosis, with moderate hydroureter seen proximally. There is a 9 mm calculus again seen in the mid right ureter, which is only slightly more distal in location within the right ureter compared to the prior study of 12/03/2018. Intrarenal calculi are again seen on the left with a dominant lower pole calculus again seen measuring 1.7 cm. There is no left hydronephrosis. There is moderate atherosclerotic calcification of the abdominal aorta without aneurysm. I see no adenopathy, free air or free fluid. There is again evidence of a gastrojejunostomy with mild dilatation of proximal jejunum associated with mild diffuse mural thickening of these jejunal loops, similar to the prior study suggesting enteritis. There is no appendicitis. There is no evidence of obstruction. There is no pelvic mass. Urinary bladder is mildly distended and grossly unremarkable. IMPRESSION: Once again, there is a 9 mm calculus seen in the mid right ureter with moderate right hydroureteronephrosis. The calculus in the right ureter is slightly more distal in location compared to the prior study of 12/03/2018. There is again evidence of a gastrojejunostomy with mural thickening and mild dilatation of proximal jejunum suggesting enteritis, similar to the prior study. Left intrarenal calculi unchanged with no left hydronephrosis. Electronically Signed by Collin Enrique MD 12/09/2018 04:47 P
[2018-12-09] MEDS ORDERED: FLOM0.4C39 PO (13:03)
[2018-12-09] MEDS ORDERED: CRES40TA PO (13:03)
[2018-12-09] MEDS ORDERED: VITA5ELUD PO (13:03)
[2018-12-09] MEDS ORDERED: PREP1CRE PR (13:03)
[2018-12-09] MEDS ORDERED: NORC1TAB4 PO (13:03)
[2018-12-09] MEDS ORDERED: ONDA4TAB5 PO (13:03)
[2018-12-09] MEDS ORDERED: CIPR500T3 PO (13:03)
[2018-12-09] MEDS ORDERED: NS 1,000 ML IV SCH (14:00)
[2018-12-09] MEDS ORDERED: NITROGLYCERIN 0.4 MG SUBL TABLET SL PRN (14:15)
--- NOTE | 2018-12-09 15:34 | HPE ---
DATE OF ADMISSION: 12/09/2018 This is a 68-year-old male with a past medical history of coronary artery disease, status post myocardial infarction, history of hypertension, hyperlipidemia, history of gastric ulcer status post repair, history of duodenal ulcer rupture, status post repair, presents to the emergency room with coffee ground emesis times three, which occurred over the last few days. He does not report any black, tarry stool associated with this. No associated abdominal pain. No nausea. He still does smoke approximately one pack per day. He denies any chest pain, shortness of breath or dizziness. He does complain of generalized weakness, which has been going on for the past week. In the emergency room, he was found to have a hemoglobin of 5, his baseline being 10.9. He was started on IV Protonix drip. Dr. Agustin has been called for a gastrointestinal consultation. 2 units of packed red blood cells have been ordered and is currently being transfused to the patient. He will be admitted for further management. PAST MEDICAL HISTORY: 1. Gastric ulcer status post repair. 2. History of hypertension. 3. History of hyperlipidemia. 4. Coronary artery disease, status post myocardial infarction times two. 5. Status post stent placement at [facility]. 6. History of esophagogastroduodenoscopy (EGD) with dilatation of duodenal stricture. ALLERGIES: PENICILLIN. FAMILY HISTORY: Noncontributory. SOCIAL HISTORY: The patient smokes approximately one pack per day for many years. He denies alcohol or illicit drug use. MEDICATIONS: He takes at home: - Byars 5/325 mg one tablet by mouth every 6 hours as needed - aspirin 81 mg by mouth daily - cholecalciferol 1000 units two times a day - ciprofloxacin 500 mg twice a day for 7 days - cyclobenzaprine 10 mg orally at bedtime - hydrocortisone applied to hemorrhoids twice a day as needed - isosorbide mononitrate 30 mg at bedtime - metoprolol 25 mg by mouth daily - multivitamin - nitroglycerin sublingual as needed - Zofran 4 mg by mouth every 6 hours as needed - rosuvastatin 40 mg by mouth daily - tamsulosin 0.4 mg by mouth at bedtime REVIEW OF SYSTEMS: Negative for all ten major systems except what is mentioned in the history of present illness. PHYSICAL EXAMINATION: VITAL SIGNS: Blood pressure 106/53, heart rate is 80 and regular, respiratory rate is 19, temperature 99.1. Oxygen saturation 100% on room air. Head is atraumatic, normocephalic. Neck is supple with no jugular venous distention (JVD). Lungs are clear to auscultation. S1, S2 audible. No murmurs appreciated. Abdomen is soft. Positive bowel sounds. No pedal edema. Skin examination: Intact. Neurologic examination, the patient is awake, alert and oriented times three. LABORATORIES: WBC 10.3, hemoglobin 5.1, hematocrit 15.5, MCV 96.3, platelets are 305,000. Sodium 137, potassium 4.2, chloride 104, CO2 of 23, BUN 35, creatinine 1.25, glucose 108, troponin 0.02, lipase is 120. CT of the abdomen and pelvis official reading is relatively unchanged from previous CT. IMPRESSION: 1. Upper gastrointestinal bleed. 2. Acute blood loss anemia. PLAN: The patient is to be admitted to progressive care unit (PCU). We will continue 2 units of packed red blood cell and followup post transfusion CBC. Transfuse further if necessary. We will continue with IV Protonix drip and await Dr. Agustin's recommendations. He will likely scope the patient tomorrow morning. I am going to keep him nothing by mouth and start him on IV fluids at 100 mL an hour. We will continue his preadmission medications and follow his care in the progressive care unit (PCU).
[2018-12-09] MEDS: PANTOPRAZOLE SODIUM 40 MG in D5W 50 ML IV SCH ×2 (17:37→22:04)
[2018-12-09] MEDS: METOPROLOL TART 25 MG TABLET PO SCH ×2 (17:39→21:00)
[2018-12-09 17:49] VITALS: BP 136/66
[2018-12-09 20:00] VITALS: BP 105/49
[2018-12-09] MEDS ORDERED: ISOSORBIDE MON. (IMDUR) 30 MG XR TAB PO SCH (21:00)
[2018-12-09 21:24] LABS: HEMATOCRIT 19.2 % (42.0-52.0); HEMOGLOBIN 6.2 g/dl (13.5-17.5)
[2018-12-09] MEDS: TAMSULOSIN 0.4 MG CAP PO SCH (21:53)
[2018-12-09] MEDS: ROSUVASTATIN 10 MG TAB (CRESTOR) PO SCH (21:53)
[2018-12-10] VITALS (7 sets, daily range): BP systolic 98–141; BP diastolic 54–65; PULSE 70
[2018-12-10] MEDS: KCL 20MEQ in NS 1000ML 1,000 ML IV SCH ×4 (01:28→18:24)
[2018-12-10] MEDS: PANTOPRAZOLE SODIUM 40 MG in D5W 50 ML IV SCH ×5 (02:18→20:00)
[2018-12-10 06:00] LABS: BASO # 0.1 10^3/uL (0.0-0.2); BASO % 0.7 % (0.0-1.0); EOS # 0.2 10^3/uL (0.0-0.50); EOS % 2.2 % (0.0-3.0); LYMPH # 1.7 10^3/uL (1.5-4.5); LYMPH % 25.2 % (24.0-44.0); MEAN CORPUSCULAR HEMOGLOBIN 30.4 pg (27.0-33.0); MEAN CORPUSCULAR HGB CONC 33.3 g/dl (32.0-36.5); MEAN CORPUSCULAR VOLUME 91.3 fl (80.0-96.0); MONO # 0.6 10^3/uL (0.0-0.8); MONO % 8.5 % (0.0-5.0); NEUTROPHILS # 4.2 10^3/uL (1.8-7.7); NEUTROPHILS % 61.9 % (36.0-66.0); PLATELET COUNT, AUTOMATED 230 10^3/uL (150-450); RED BLOOD COUNT 2.63 10^6/uL (4.30-6.10); WHITE BLOOD COUNT 6.8 10^3/uL (4.0-10.0)
[2018-12-10 06:20] LABS: BLOOD UREA NITROGEN 21 MG/DL (7-18); CALCIUM LEVEL 7.2 MG/DL (8.8-10.2); CARBON DIOXIDE LEVEL 21 MEQ/L (21-32); CHLORIDE LEVEL 112 MEQ/L (98-107); GLOMERULAR FILTRATION RATE > 60.0 (>49); GLUCOSE, FASTING 86 MG/DL (70-100); POTASSIUM SERUM 3.6 MEQ/L (3.5-5.1); SODIUM LEVEL 141 MEQ/L (136-145)
[2018-12-10] MEDS: ROSUVASTATIN 10 MG TAB (CRESTOR) PO SCH (08:12)
[2018-12-10] MEDS: METOPROLOL TART 25 MG TABLET PO SCH ×2 (09:00→20:11)
--- NOTE | 2018-12-10 09:41 | IPN ---
DATE OF SERVICE: 12/10/2018 PRIMARY CARE PHYSICIAN: [facility] ELECTRONICS MAINTENANCE TECHNICIAN: [facility]/Dr. Cole Adilson Dill was seen while rounding for the hospitalists. He was admitted with severe anemia from presumed upper gastrointestinal (GI) bleed. He had coffee-grounds emesis. Presented with a hemoglobin of 5. He has a history of coronary artery disease, status post stent of unspecified coronary artery at [facility]. He follows with [facility]/Dr. Cole. He has a history of gastric ulcer requiring surgical intervention 2016, history of hypertension, hyperlipidemia. 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 He was recently in the emergency room 12/03/2018 with a kidney stone. Had a right ureteral stone, which is still present. This morning, he is having chest pain. First, it was substernal chest pressure radiating across his chest. He then felt it up in his neck, which is anginal equivalent. They both resolved spontaneously after 5-10 minutes of pain. His pressures were only in the 90s. He denies any recurrent hematemesis but still has abdominal pain. PHYSICAL EXAMINATION: 98/62, pulse 68, respiratory rate 20, 100% oxygen (O2) saturation on room air, 98.1 degrees. General appearance: He look uncomfortable. He is pale. Not diaphoretic. No jugular venous distention (JVD). Lungs: Decreased breath sounds. Heart: Regular rate and rhythm. No murmur. Chest wall nontender to palpate. Abdomen soft, tender in the epigastric area. Mildly distended. No peripheral edema. LABORATORIES: Sodium 141, potassium 3.6, BUN 21, creatinine 1.0, glucose 86. White count 6.8, hemoglobin 8, platelets 230. IMPRESSION: 1. Chest pain at rest. Probably acute coronary syndrome precipitated by the anemia. His hemoglobin is only up to 8. His baseline is 10.5. I have ordered 2 more units of packed red blood cells. An at once (STAT) electrocardiogram (EKG) has been ordered. Cardiac enzymes have been ordered. His pressure is low. I am giving him some saline, 250 an hour. Also, supplemental potassium. Cardiology has been consulted. The case discussed with Dr. Cole. The patient will need to be seen by cardiology before he goes to the operating room (OR) for an esophagogastroduodenoscopy (EGD). 2. Upper gastrointestinal bleed with acute blood loss anemia. He is on intravenous (IV) Protonix. GI has been consulted. Antiplatelet drugs are on hold. 3. Right kidney stone. This is still present and causing some hydroureter. We will need to get urology involved, but he has more pressing issues right now. He is on Flomax, I presume for the stone. 4. Hyperlipidemia. Continue his Crestor 40 mg daily. 5. Hypotension. He is on Imdur. I have stopped this. Will use topical nitrates only if systolic pressure less than 100. Continue his beta lisa therapy.
[2018-12-10 10:05] LABS: MB/CK RELATIVE INDEX 3.55 (< OR =4); TROPONIN I 0.02 NG/ML (< 0.10)
--- NOTE | 2018-12-10 10:12 | CR ---
DATE OF CONSULTATION: 12/10/2018 REFERRING PHYSICIAN: Dr. Cobos INDICATION: Chest pain and gastrointestinal (GI) bleeding. HISTORY OF PRESENT ILLNESS: Mr. Dill is previously unknown to me but he has been followed by my partner, Dr. Hernandez. He does have a history of peptic ulcer disease that required surgical intervention in 2017, and he also has a history of coronary artery disease. He has a remote history of myocardial infarction. His last coronary angiogram was on 03/13/2017 and revealed left ventricle ejection fraction 60%, mild medical disease in RCA, had patent stent in ostium of LAD and 70% stenosis in the ostium of the ramus but it was not felt to be significant by FFR. He has been treated medically since. He came to emergency room yesterday after he had hematemesis. Talking to the patient, he tells me that he has not been well for at least a week. He was not able to eat much. He says that he had prior hematemesis but it was not until yesterday when it got really severe and frequent. He also reports that he had blood in his stools and melena. On presentation to emergency room, his hemoglobin was only 5. He was transfused and there is a plan to have esophagogastroduodenoscopy (EGD) later today. I was asked to see him by Dr. Cobos because he started having chest discomfort. He tells me that he has had virtually constant epigastric discomfort now for several days, but also has had earlier today discomfort behind his sternum and to some degree also in his lower jaw. It has resolved by now. He has several electrocardiograms during this hospitalization. They all reveal sinus rhythm. The one from 9:37 yesterday reveals occasional premature ventricular contractions (PVCs) and there is suspicion for old inferior wall myocardial infarction not remarkably different from before. The one from 9:19 today reveals sinus rhythm with ventricular rate only 64 beats per minute. Again suspicion for old inferior wall myocardial infarction based on Q-waves in III and aVF, but no acute ST-segment shift. At the time of my interviewing, the patient he says that he still is somewhat uncomfortable. He still has mild discomfort in epigastrium but his prior chest discomfort has resolved. He denies any dyspnea. He believes that he has not eaten for at least 5 days if not more. PAST MEDICAL HISTORY: 1. Coronary artery disease as above. 2. History of peptic ulcer disease. He underwent laparotomy on 08/15/2017 for duodenal ulcer perforation. At that point, he had patch repair and gastrojejunostomy feeding tube placed. He had reexploration 8 days later for an anastomotic leak 3. Hypertension. 4. Dyslipidemia. 5. Chronic back pain. 6. History of recent kidney stones. SURGICAL HISTORY: Circumcision, left thumb repair, tonsillectomy, plus abdominal surgery as noted above. FAMILY HISTORY: No longer relevant. SOCIAL HISTORY: Patient is a smoker. He denies any alcohol use. OUTPATIENT MEDICATIONS: - [place] every 6 hours - aspirin 81 a day - vitamin D - Cipro 500 twice a day - cyclobenzaprine 10 mg at bedtime - local hydrocortisone for rectal hemorrhoids - isosorbide 30 mg at bedtime - metoprolol 25 mg a day - multivitamin - nitroglycerin - Zofran - rosuvastatin 40 mg a day - tamsulosin 0.4 mg at bedtime REVIEW OF SYSTEMS: He denies any recent fever, chills. He has had some hemoptysis for at least several days but more intense yesterday. He denies any shortness of breath in last few days, even though he says that he occasionally does get short of breath with activity. He also reports that he noted some blood and melena in his stools. He had recent kidney stones. He has occasional peripheral edema. Denies any syncope, near-syncope. The rest of review of system as per HPI or otherwise negative. PHYSICAL EXAMINATION: Mr. Dill is a 68-year-old man, who appears alert and oriented and appropriate. He appears mildly uncomfortable but in no distress. His last set of vital signs, blood pressure 98/62, heart rate has been 60s. He is afebrile. Saturation is 100% on room air. Jugular venous pulse (JVP) is not high. Lungs sound pretty clear to auscultation. I do not appreciate any wheezing, rhonchi or crackles. Heart exam reveals regular rhythm without gallop, rub or murmur. There is extensive scarring across his abdomen after prior surgeries. There is mild tenderness in the epigastrium. No obvious guarding. Bowel sounds are positive but not very active. Extremities: He has mild edema of left lower extremity. Peripheral pulses are palpable bilaterally. Neurologically, he is intact. LABORATORY SEGUNDO: As of 5:46 this morning, WBC count 6.8, hemoglobin 8, hematocrit 24, platelet count 230,000. Basic metabolic panel normal. He had one set of cardiac enzymes yesterday that was negative, including troponin. The one from this morning is pending. BUN was 2.5. He had abdomen CT that revealed calculus in the mid right ureter with moderate hydro urethral nephrosis and evidence for prior abdominal surgery. He also has left intrarenal calculi without obstructive abnormalities. There is apparent atherosclerosis in the abdominal aorta. CURRENT MEDICATIONS: - nitroglycerin topically - tamsulosin 0.4 at bedtime - pantoprazole 40 mg to infuse daily - metoprolol 25 twice a day - Crestor 40 mg a day ASSESSMENT AND PLAN: Mr. Dill is a 68-year-old man, who has remote history of myocardial infarction and evidence for patent stent in proximal LAD and medical disease in ramus on angiogram in March 2017. He presents with nausea, vomiting, hematemesis and reportedly also blood in his stools. These GI symptoms have been going on for at least 5-7 days but more intense yesterday. He is currently being transfused and managed by Dr. Cobos and there is a plan for endoscopy later today. He did have episode of chest discomfort. It had some anginal features but it is also possible that the pain could be of GI etiology. In any case, at this point, without evidence of ischemic abnormalities on EKG and without troponin elevation, I would recommend purely supportive management. Hopefully the endoscopy will identify source of bleeding and will be able to provide some form of therapeutic intervention as well. I do not believe that we can give him any antiplatelet agents in this setting. I will follow the patient with you. Dr. Hernandez will be available tomorrow. ALBERTO
[2018-12-10] MEDS: NITROGLYCERIN 2% OINT 1 GM *U/D* PKT TOP SCH ×2 (13:09→18:25)
[2018-12-10] MEDS ORDERED: PROPOFOL 200 MG/20 ML VIAL As Ordered ONE (15:38)
[2018-12-10] MEDS ORDERED: fentaNYL 100 MCG/2 ML INJECTION (J3010) As Ordered ONE (15:38)
[2018-12-10] MEDS ORDERED: LIDOCAINE 2% MDV 20 ML VIAL As Ordered ONE (15:38)
--- NOTE | 2018-12-10 16:08 | ROOR ---
Patient Name: Adilson Dill Procedure Date: 12/10/2018 3:38 PM Date of : 1950 Age: 68 [facility]: [facility] Gender: Male Note Status: Finalized Procedure: Upper GI endoscopy Indications: Acute post hemorrhagic anemia, Hematemesis Providers: Mark AGUSTIN MD Referring MD: 2. Inpatient 2. Inpatient Requesting Provider: Medicines: Monitored Anesthesia Care Complications: No immediate complications. Procedure: Pre-Anesthesia Assessment: - The heart rate, respiratory rate, oxygen saturations, blood pressure, adequacy of pulmonary ventilation, and response to care were monitored throughout the procedure. The Endoscope was introduced through the mouth, and advanced to the jejunum. The upper GI endoscopy was accomplished without difficulty. The patient tolerated the procedure well. Findings: The examined esophagus was normal. Evidence of a gastrojejunostomy was found in the anastomosis. This was characterized by ulceration. The examined jejunum was normal. Impression: - Normal esophagus. - A gastrojejunostomy was found, characterized by several large deeply cratered post anastomotic ulcerations. All ulcers are covered by white exudate. No therapy was applied today as there are no visible vessels, red spots or other high rebleed risk stigmata. - Pylorus appears to be surgically closed. - Normal examined jejunum. - No specimens collected. Recommendation: - Use a proton pump inhibitor IV. - Observe patient's clinical course. - Clear liquid diet today. - Use a proton pump inhibitor PO BID indefinitely. - Use sucralfate tablets 1 gram PO QID for 1 month. Mark Agustin MD Mark AGUSTIN MD 12/10/2018 4:08:48 PM This report has been signed electronically. Number of Addenda: 0 Note Initiated On: 12/10/2018 3:38 PM Estimated Blood Loss: Estimated blood loss: none.
[2018-12-10 17:33] LABS: MB/CK RELATIVE INDEX 2.84 (< OR =4); TROPONIN I 0.02 NG/ML (< 0.10)
[2018-12-10] MEDS: SUCRALFATE 1 GM TAB PO SCH ×2 (18:24→20:12)
[2018-12-10] MEDS: TAMSULOSIN 0.4 MG CAP PO SCH (20:12)
--- NOTE | 2018-12-10 20:54 | ECGEPIP ---
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
[2018-12-11] VITALS: BP 115/58
--- NOTE | 2018-12-11 00:43 | ECGEPIP ---
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
[2018-12-11] MEDS: PANTOPRAZOLE SODIUM 40 MG in D5W 50 ML IV SCH ×3 (01:00→11:36)
[2018-12-11] MEDS: KCL 20MEQ in NS 1000ML 1,000 ML IV SCH ×3 (01:15→10:03)
[2018-12-11 02:16] LABS: MB/CK RELATIVE INDEX 3.45 (< OR =4); TROPONIN I 0.02 NG/ML (< 0.10)
[2018-12-11 04:00] VITALS: BP 93/52
[2018-12-11] MEDS: NITROGLYCERIN 2% OINT 1 GM *U/D* PKT TOP SCH ×2 (06:00)
[2018-12-11] MEDS: SUCRALFATE 1 GM TAB PO SCH ×4 (06:05→21:12)
[2018-12-11 06:08] LABS: HEMATOCRIT 25.2 % (42.0-52.0); HEMOGLOBIN 8.3 g/dl (13.5-17.5); MEAN CORPUSCULAR HEMOGLOBIN 29.7 pg (27.0-33.0); MEAN CORPUSCULAR HGB CONC 32.9 g/dl (32.0-36.5); MEAN CORPUSCULAR VOLUME 90.3 fl (80.0-96.0); PLATELET COUNT, AUTOMATED 211 10^3/uL (150-450); RED BLOOD COUNT 2.79 10^6/uL (4.30-6.10); WHITE BLOOD COUNT 6.2 10^3/uL (4.0-10.0)
[2018-12-11 06:23] LABS: BLOOD UREA NITROGEN 13 MG/DL (7-18); CALCIUM LEVEL 7.1 MG/DL (8.8-10.2); CARBON DIOXIDE LEVEL 21 MEQ/L (21-32); CHLORIDE LEVEL 114 MEQ/L (98-107); CREATININE FOR GFR 0.99 MG/DL (0.70-1.30); GLOMERULAR FILTRATION RATE > 60.0 (>49); GLUCOSE, FASTING 105 MG/DL (70-100); POTASSIUM SERUM 4.1 MEQ/L (3.5-5.1); SODIUM LEVEL 141 MEQ/L (136-145)
[2018-12-11 08:00] VITALS: BP 103/57
[2018-12-11] MEDS: PANTOPRAZOLE 40MG INJ (PROTONIX) (C9113) IV SCH ×2 (09:00→21:00)
[2018-12-11] MEDS: METOPROLOL TART 25 MG TABLET PO SCH ×2 (10:06→21:13)
[2018-12-11] MEDS: ROSUVASTATIN 10 MG TAB (CRESTOR) PO SCH (10:06)
--- NOTE | 2018-12-11 10:58 | IPN ---
DATE OF SERVICE: 12/11/2018 Mr. Dill has his EGD yesterday. It revealed presence of ulcer but no bleeding was found. No additional procedures were performed. On a positive note, he did not get any recurrence of chest discomfort since yesterday. His cardiac enzymes remained negative. This morning he complains about abdominal pain mostly in the epigastrium and in left upper quadrant. He says it has been steady all night but has no other symptoms. Vital signs: Blood pressure 102/66, heart rate has been in 60s is afebrile, saturation 100% on room air. Fluid balance yesterday was slightly positive about 300 mL. Weight is documented at 97.7. He is alert and oriented and appropriate. His JVP is not high. Lungs are reasonably clear. Heart exam reveals regular rhythm. No gallop, rub or murmur. Abdomen is soft. There is tenderness in mostly upper quadrants mostly in the epigastrium. No rebound. Bowel sounds are positive. Extremities are free of edema. Neurologically he is intact. LABORATORY: Basic metabolic panel is normal but for glucose 105 and CBC reveals hemoglobin 8.3, hematocrit 25 which is slightly up from yesterday. ASSESSMENT/PLAN: Mr. Dill is a 68-year-old man who has a history of remote coronary intervention to LAD and had residual disease in obtuse marginal artery based on angiogram in 2017. He presented with a bleeding peptic ulcer that was previously operated on in 2017. His blood count fortunately stabilized after he received several blood transfusions. He had an episode of chest discomfort yesterday that had some features of angina but resolved spontaneously. There were no ischemic abnormalities on ECG and his cardiac enzymes remained negative. From my perspective, I do not believe we need to do any further cardiac testing at this point unless he has recurrence of symptoms. I think it is probably too early to restart aspirin but I am hoping that 81 mg of aspirin will be possible to get restarted before he goes home. He certainly needs to be monitored longer. I will let Dr. Hernandez know about the patient being in the hospital. ALBERTO
[2018-12-11 12:00] VITALS: BP 113/63
--- NOTE | 2018-12-11 13:25 | IPN ---
DATE OF SERVICE: 12/11/2018 Adilson was seen in progressive care unit (PCU). He had an esophagogastroduodenoscopy (EGD). It showed several marginal ulcers deeply cratered in the gastrojejunostomy anastomosis. No visible vessels, red spots, or the stigmata of high-risk for bleeding noted. Complete blood count (CBC) stable. He has ongoing abdominal pain, a little better than yesterday. PHYSICAL EXAMINATION: 113/63, pulse 97, respiratory rate 18, 97% oxygen (O2) saturation. General appearance: Resting comfortably. No distress. Lungs: Clear. Heart: Regular rate and rhythm. Abdomen soft, tender in the epigastric area. No guard, rebound, referred pain. No costovertebral angle (CVA) tenderness. LABORATORIES: Hemoglobin is 8.3. Electrolytes unremarkable. Troponins were flat. IMPRESSION: 1. Upper gastrointestinal (GI) bleed, acute blood loss anemia secondary to anastomosis marginal ulcers. Continue proton pump inhibitor (PPI). We will change him from a Protonix drip to intermittent dosing. His intravenous (IV) fluids have been discontinued, and he is started on a [id number] diet. Serial CBCs have been ordered. 2. Coronary artery disease. He is ruled out for a myocardial infarction (ID). Cardiology recommends restarting low-dose aspirin upon discharge. His Nitropaste was discontinued due to low blood pressures and headache. 3. Hyperlipidemia. Continue current dose of rosuvastatin.
[2018-12-11 16:00] VITALS: BP 101/60
[2018-12-11 20:00] VITALS: BP 101/56
[2018-12-11] MEDS: TAMSULOSIN 0.4 MG CAP PO SCH (21:13)
[2018-12-12] VITALS (7 sets, daily range): BP systolic 102–173; BP diastolic 55–80
[2018-12-12 05:56] LABS: HEMOGLOBIN 9.5 g/dl (13.5-17.5); MEAN CORPUSCULAR HEMOGLOBIN 29.8 pg (27.0-33.0); MEAN CORPUSCULAR HGB CONC 32.8 g/dl (32.0-36.5); MEAN CORPUSCULAR VOLUME 90.9 fl (80.0-96.0); PLATELET COUNT, AUTOMATED 216 10^3/uL (150-450); RED BLOOD COUNT 3.19 10^6/uL (4.30-6.10); WHITE BLOOD COUNT 6.5 10^3/uL (4.0-10.0)
[2018-12-12 06:15] LABS: BLOOD UREA NITROGEN 10 MG/DL (7-18); CALCIUM LEVEL 7.3 MG/DL (8.8-10.2); CARBON DIOXIDE LEVEL 21 MEQ/L (21-32); CHLORIDE LEVEL 111 MEQ/L (98-107); CREATININE FOR GFR 1.04 MG/DL (0.70-1.30); GLOMERULAR FILTRATION RATE > 60.0 (>49); GLUCOSE, FASTING 93 MG/DL (70-100); SODIUM LEVEL 139 MEQ/L (136-145)
[2018-12-12] MEDS: SUCRALFATE 1 GM TAB PO SCH ×4 (06:34→21:00)
[2018-12-12] MEDS: PANTOPRAZOLE 40MG INJ (PROTONIX) (C9113) IV SCH ×2 (09:20→21:14)
[2018-12-12] MEDS: ROSUVASTATIN 10 MG TAB (CRESTOR) PO SCH (09:21)
[2018-12-12] MEDS: METOPROLOL TART 25 MG TABLET PO SCH ×2 (09:21→21:00)
[2018-12-12] MEDS ORDERED: SLF 3 ML SYR IV PRN (09:30)
--- NOTE | 2018-12-12 12:11 | IPN ---
DATE: 12/12/2018 Keyur was seen in progressive care unit (PCU). He reports epigastric pain. He has had no recurrence of chest pain since he was transfused. It still hurts a lot to get out of bed and he is slow to be moving around. PHYSICAL EXAMINATION: 109/62, pulse 60. GENERAL APPEARANCE: Chronically ill-appearing, lying in bed. Looks older than his stated age. LUNGS: Clear. HEART: Regular rhythm. ABDOMEN: Soft. Tender in the epigastric area. LABORATORIES: Hemoglobin is 9.5, electrolytes unremarkable. IMPRESSION: 1. Acute upper gastrointestinal bleed with blood loss anemia secondary to anastomotic marginal ulcers. Continue IV proton pump inhibitor, he is on 40 mg of Protonix twice a day. He is also on sucralfate. Tomorrow I will put him on oral proton pump inhibitor. He still has a lot of upper abdominal pain, but his hemoglobin is stable. 2. Coronary artery disease. This is stabilized with no recurrence of chest pain since he was transfused. The plan is to restart aspirin at discharge. 3. Hyperlipidemia. Good control on current dose of rosuvastatin. 4. Benign prostatic hypertrophy (BPH). Continue Flomax 0.4 mg daily. 5. Right ureteral stone. He has a right-sided kidney stone that was on CT on 12/03/2018, still present on admission. He had some mild hydronephrosis associated with this. Now that his gastrointestinal (GI) situation is stabilized and he is no longer having chest pain at rest, we will get the urologist to see him. I anticipate putting him on oral PPI tomorrow and maybe discharging on Sunday; however, he is having a lot of epigastric pain and he would have to improve between now and then to be ready for discharge by 2 days.
[2018-12-12] MEDS: SLF 3 ML SYR IV SCH ×2 (14:48→21:16)
[2018-12-12] MEDS: TAMSULOSIN 0.4 MG CAP PO SCH (21:00)
[2018-12-12] MEDS: MORPHINE 4 MG/ML 1ML VIAL/SYRINGE (J2270) IV PRN (21:16)
--- NOTE | 2018-12-12 21:56 | IPN ---
DATE: 12/12/2018 Mr. Dill is slowly improving. He continues to have discomfort in his epigastrium, but it is not as severe as yesterday. He denies any recurrence of chest discomfort. Denies any dyspnea. Vital signs: Blood pressure 109/62, heart rate has been mostly in 60s, sinus rhythm. He is afebrile. Saturation 96-97% on room air. His fluid balance yesterday was approximately equal. Weight was not documented this morning. He is alert and oriented and appropriate. His jugular venous pressure (JVP) is not elevated. Lungs are clear with good air movement. Heart: Exam reveals regular rhythm without gallop or rub. Abdomen: Still appears tender in the epigastrium but no distinct guarding is present. Bowel sounds are present. Extremities are free of edema. Peripheral pulses are palpable. LABORATORY DATA: Basic metabolic panel is normal and a CBC reveals improvement of hemoglobin to 9.5, hematocrit 29, platelet count 216,000 ASSESSMENT/PLAN: Mr. Dill is a 68-year-old man who has established coronary artery disease with a remote history of intervention of proximal LAD. His last coronary angiogram in 2017 revealed patent stents, minimal disease in right coronary artery and 70% stenosis in obtuse marginal, and preserved left ventricular systolic function. Unfortunately, he currently presented with upper gastrointestinal (GI) bleeding that led to severe anemia. Fortunately, this has stabilized. After transfusion, his hemoglobin appropriately sheldon, and esophagogastroduodenoscopy (EGD) did not reveal any active bleeding. I suspect that his episode of chest discomfort may have been nonanginal or if it was angina, it probably was precipitated by severe anemia. But there was no ECG or biochemical evidence for myocardial ischemia or necrosis. He is on appropriate medications - currently on beta-lisa and his heart rate is very well controlled, same applies for blood pressure. He is also on a statin. There is no clinical congestive heart failure. Apparently urology service is asking for clearance for an endoscopic procedure with cystoscopy, bilateral ureteroscopy, and potential stent placement under general anesthesia. From a cardiac perspective, I do not have objections to proceed without any further specific precautions. It is too early for him to start on aspirin considering recent massive GI bleeding. Please do continue beta lisa and statin, and I would also continue monitoring him on telemetry for at least [address] Hernandez, who is his regular lymphedema therapist, will be back tomorrow. DURATION MTDD
[2018-12-13] VITALS (10 sets, daily range): BP systolic 111–149; BP diastolic 57–96
[2018-12-13 05:21] LABS: HEMATOCRIT 30.1 % (42.0-52.0); HEMOGLOBIN 9.8 g/dl (13.5-17.5); MEAN CORPUSCULAR HEMOGLOBIN 29.3 pg (27.0-33.0); MEAN CORPUSCULAR HGB CONC 32.6 g/dl (32.0-36.5); MEAN CORPUSCULAR VOLUME 89.9 fl (80.0-96.0); PLATELET COUNT, AUTOMATED 236 10^3/uL (150-450); RED BLOOD COUNT 3.35 10^6/uL (4.30-6.10)
[2018-12-13 05:47] LABS: BLOOD UREA NITROGEN 12 MG/DL (7-18); CALCIUM LEVEL 7.7 MG/DL (8.8-10.2); CARBON DIOXIDE LEVEL 23 MEQ/L (21-32); CHLORIDE LEVEL 109 MEQ/L (98-107); GLOMERULAR FILTRATION RATE > 60.0 (>49); GLUCOSE, FASTING 88 MG/DL (70-100); POTASSIUM SERUM 3.7 MEQ/L (3.5-5.1); SODIUM LEVEL 140 MEQ/L (136-145)
[2018-12-13] MEDS: SLF 3 ML SYR IV SCH ×3 (06:00→21:46)
[2018-12-13] MEDS: SUCRALFATE 1 GM TAB PO SCH ×4 (06:48→21:46)
[2018-12-13] MEDS: MORPHINE 4 MG/ML 1ML VIAL/SYRINGE (J2270) IV PRN ×2 (06:54→15:05)
[2018-12-13] MEDS ORDERED: CIPROFLOXACIN 400 MG in APPROPRIATE DILUENT 1 EA IV ONE (07:00)
[2018-12-13] MEDS: PANTOPRAZOLE 40MG INJ (PROTONIX) (C9113) IV SCH (08:26)
[2018-12-13] MEDS: METOPROLOL TART 25 MG TABLET PO SCH ×2 (08:27→21:46)
[2018-12-13] MEDS: ROSUVASTATIN 10 MG TAB (CRESTOR) PO SCH (08:27)
--- NOTE | 2018-12-13 08:40 | IPN ---
DATE OF SERVICE: 12/13/2018 Mr. Dill continues to complain about abdominal pain. He tells me that yesterday it was worsened than the day before, rather diffuse throughout the abdomen. He did not have any chest pain. He did not have any dyspnea. He is tentatively scheduled to undergo cystoscopy and ureteral stent placement later today. Vital signs: Blood pressure 130/96, heart rate is in 50s and 60s, he is afebrile. Saturation is in high 90s on room air. Weight is documented 97.9 kg. He is alert and oriented and appropriate. His JVP is not high. Lungs are clear. Heart: Exam reveals regular rhythm without gallop or rub. No murmur. Abdomen is diffusely tender but there is no definite guarding. Bowel sounds are present. No edema. Neurologically intact. LABORATORY: Hemoglobin 9.9, hematocrit 30.1, platelet count 236,000 and basic metabolic panel is normal. ASSESSMENT AND PLAN: Mr. Dill is a 68-year-old man who has coronary artery disease with history of PCI to proximal LAD many years ago. His last angiogram 2 years ago revealed patent stent in proximal LAD. There was approximately 70% stenosis in obtuse marginal and minimal disease in RCA. LV systolic function was preserved. He now presented with severe GI bleed and that led to anemia with hemoglobin as low as 5. EGD revealed no active bleeding even though he has ulcers. After transfusion, his hemoglobin is in acceptable range. He continues though to complain about abdominal discomfort. From cardiac perspective, he has been doing well. He had an episode of chest discomfort early with this presentation. I suspect precipitated by severe anemia but there was no objective evidence for ischemia and his troponin was negative. I believe that he can proceed from the procedure as felt appropriate. On the other hand, I am quite concerned about his ongoing abdominal pain. I am not quite sure what is the etiology but unfortunately, I am certainly no expert in this field. Dr. Hernandez is covering the weekend. [facility]
[2018-12-13] MEDS ORDERED: FUROSEMIDE 20 MG/2 ML VIAL (J1940) As Ordered ONE (11:28)
--- NOTE | 2018-12-13 13:15 | REP ---
RENAL NUCLEAR SCAN WITH FLOW AND FUNCTION, WITH LASIX ADMINISTRATION: Following the intravenous administration of 8.8 millicuries of Technetium 99M Mag 3, immediate flow images are obtained in the posterior projection showing fairly symmetric blood flow bilaterally. Delayed renal function images are performed every minute for a period of 30 minutes in the posterior projection. There is a delayed nephrogram on the right. There is delayed excretion on the right with moderate to moderately severe right hydronephrosis. Left kidney demonstrates cortical uptake and subsequent washout in excretion with no hydronephrosis. Split function is 57.7% on the left and 42.3% on the right. Time to peak is 4 minutes on the left which is mildly delayed and 18 minutes on the right which is more significantly delayed. T one half on the left is 18.1 minutes which is above normal 10.5-11 minutes. T one half on the right could not be calculated. Renal function curve for the right kidney is upward slopping with continued radiotracer accumulation. Renal function curve for the left kidney is shallow downward slope indicating some degree of diminished function. Next 28 mg of Lasix was given intravenously and further imaging was performed for an additional 30 minutes. There is persistent moderate to moderately severe right hydronephrosis with no hydronephrosis on the left. There is mild residual in the urinary bladder after voiding. IMPRESSION: Moderate to moderately severe right hydronephrosis with high grade obstruction of the right ureter. Mildly compromised function left kidney. Electronically Signed by Collin Enrique MD 12/13/2018 01:56 P
--- NOTE | 2018-12-13 14:22 | IPN ---
DATE: 10/12/2019 Adilson was seen in the progressive care unit (PCU). He was on his way down for his urologic procedure. He had abdominal pain. No chest pain. PHYSICAL EXAMINATION: 111/57. Pulse 67. 99.6 degrees. Alert, conversant, in no distress. HEENT unremarkable. Lungs clear. Heart regular rate and rhythm. Abdomen soft. Tender in the epigastric area. No peripheral edema. IMPRESSION: 1. Upper gastrointestinal (GI) bleed and acute blood loss anemia. Continue sucralfate and Protonix. Will change his Protonix to by mouth. Esophagogastroduodenoscopy (EGD) showed several ulcers that were not actively bleeding at that time. 2. Coronary artery disease. No recurrence of chest pain. 3. Acute blood loss anemia requiring transfusion. Hemoglobin stable. 4. Right ureteral stone. The case was discussed with urology yesterday. Nuclear medicine renal scan showed mild to moderately severe right hydronephrosis, high grade obstruction in right ureter, mildly compromised function of left kidney. Patient was going for stenting today.
[2018-12-13] MEDS ORDERED: POTASSIUM CHLORIDE 10 MEQ SR TABLET PO ONE (15:45)
[2018-12-13] MEDS ORDERED: CONRAY-60 60% 50ML VIAL (Q9961) As Ordered ONE ×2 (17:14→19:20)
[2018-12-13] MEDS ORDERED: ONDANSETRON 4MG/2ML VIAL (J2405) As Ordered ONE (18:49)
[2018-12-13] MEDS ORDERED: METOCLOPRAMIDE INJ 10MG/2ML VIAL (J2765) As Ordered ONE (18:49)
[2018-12-13] MEDS ORDERED: fentaNYL 100 MCG/2 ML INJECTION (J3010) As Ordered ONE (18:49)
[2018-12-13] MEDS ORDERED: LIDOCAINE 2% INJ 100 MG/5 ML SDV (FOR ANES.) As Ordered ONE (18:49)
[2018-12-13] MEDS ORDERED: dexameTHASONE 4 MG/ML 1ML VIAL (J1100) As Ordered ONE (18:49)
[2018-12-13] MEDS ORDERED: MIDAZOLAM INJ 2 MG/2 ML VIAL (J2250) As Ordered ONE (18:49)
[2018-12-13] MEDS ORDERED: PROPOFOL 200 MG/20 ML VIAL As Ordered ONE (18:49)
[2018-12-13] MEDS ORDERED: ePHEDrine SULFATE 25 MG/5 ML(5MG/ML) SYRINGE As Ordered ONE ×3 (18:50→19:35)
[2018-12-13] MEDS ORDERED: fentaNYL 100 MCG/2 ML INJECTION (J3010) IV PRN (20:45)
[2018-12-13] MEDS ORDERED: PERCOCET 5MG/325MG TAB PO PRN (20:45)
[2018-12-13] MEDS ORDERED: LR 1,000 ML IV SCH (20:45)
[2018-12-13] MEDS ORDERED: ONDANSETRON 4MG/2ML VIAL (J2405) IV PRN (20:45)
[2018-12-13] MEDS ORDERED: HYDROMORPHONE HCL 0.5 MG/ 0.5 ML SYRINGE (J1170 PER 1) IV PRN (20:45)
[2018-12-13] MEDS ORDERED: CIPR-249 PO (21:38)
[2018-12-13] MEDS ORDERED: FLOM0.4C39 PO (21:38)
[2018-12-13] MEDS: PANTOPRAZOLE 40MG TAB (PROTONIX) PO SCH (21:46)
[2018-12-13] MEDS: TAMSULOSIN 0.4 MG CAP PO SCH (21:46)
--- NOTE | 2018-12-13 21:46 | ROOPDOC ---
[facility] Report Of Operation Report of Operation DATE OF PROCEDURE: 12/13/18 PREPROCEDURE DIAGNOSIS: bilateral kidney stones; high grade obstruction d/t proximal stone and left lower pole stone. POSTPROCEDURE DIAGNOSIS: same PROCEDURE: cysto stent bilateral; right ureteroscopy after balloon dilation of the ureter to place wire d/t obstructing stone proximally SURGEON: Deep Ortega MD M[facility] [employer] CONSULTANT: None. ANESTHESIA: GET (Dr. Beauchamp). OPERATIVE INDICATIONS: This is a 68-year-old male who on recent CAT scan was found to have obstructing right ureteropelvic and large left lower pole stone. She was brought to the operating room today for above-listed procedure. Findings: Difficult to pass 0.035 straight and angled wire passed stone; difficult to pass 0.025 hydrophilic wire, which did eventually pass DESCRIPTION OF PROCEDURE: The patient was brought to the operating room and GET was administered. Prophylactic antibiotics (Cipro 400mg IV OCTOR) was infused. After informed consent he was brought to the operative suite where the routine time out was completed with all provider stakeholders agreed on location, equipment, procedure and any potential dangers for the patient that could be avoided. HE WAS PREPPED AND DRAPED AND 21 F CYSTOSCOPE SHEATH WITH 30 DEGREE SCOPE WAS PLACED INTO URETHRA ADVANCED TO THE BLADDER WHERE THE LEFT URETER WAS INTUBATED WITH 5 F OPEN ENDED CATHETER. NON DILUTED CONRAY WAS PLACED UP THE CATHETER, A 0.035 GUIDEWIRE (MOTION) WAS ADVANCED INTO THE RENAL PELVIS. THEN IN EXCHANGE FOR THE OPEN ENDED CATHETER THE 6 X 22-30CM CATHETER WAS ADVANCED TO A CURL AT THE RENAL PELVIS AND CURL IN THE BLADDER UNDER DIRECT VISUALIZATION BOTH DIRECTLY AND INDIRECTLY WITH SCOPE AND FLUOROSCOPY, RESPECTIVELY. Attention was then turned to the right side RIGHT URETER WAS INTUBATED WITH 5 F OPEN ENDED CATHETER. NON DILUTED CONRAY WAS PLACED UP THE CATHETER, A 0.035 GUIDEWIRE (MOTION) WAS ADVANCED TO THE STONE, BUT COULD NOT PASSED THE STONE. THE ANGLED 0.035 WIRE WAS USED TO REPLACE THE MOTION WIRE WITH SAME DIFFICULTY PASSING THE STONE. THEN, 0.025 WIRE WAS ADVANCED PASSED THE STONE INTO THE RENAL PELVIS. BALLOON DILATION AROUND THE STONE WAS ATTEMPTED WITH 12f 10cm BALLOON. IN EXCHANGE FOR THE BALLOON DILATOR WAS THE semi rigid ureteroscope which advanced beside the wire and then angled wire was advanced as second wire. the 0.025 was removed after the angled wire successfully passed the stone. THEN IN EXCHANGE FOR THE URETEROSCOPE, THE 6 X 22-30CM CATHETER WAS ADVANCED TO A CURL AT THE RENAL PELVIS AND CURL IN THE BLADDER UNDER DIRECT VISUALIZATION BOTH DIRECTLY AND INDIRECTLY WITH SCOPE AND FLUOROSCOPY, RESPECTIVELY. 21 F cystoscope was used to ensure a curl in the bladder could be seen for both ureters. The patient was then awakened from anesthesia and transported to the recovery room in stable condition. Estimated blood loss:5 mL. Complications: None. Specimens: None. PLAN: The patient will KUB tomorrow after the procedure and a followup KUB in about 2 weeks prior to the visit to assess for stone burden. The patient may be offered a small amount of narcotics, but given the fact that the patient is stented; he is unlikely to have significant pain, but he may have a lot of frequency urgency, best managed with ditropan. He may also get constipated for which miralax, probiotics, maybe a stool softner are ideal. Narcotic and oxybutinin should used sparingly. He will also need cipro for the next 7 days. he is encouraged to hydrate well (3l/day); void [id number]; expect blood and clots in her urine; he is to avoid ibuprofen, nsaids, aspirin and other blood thinners for 7-10 days. he is encouraged to use mag oxide, potassium citrate and flomax as prescribed.call [facility] urology sunday for us to schedule ESWL and or ureteroscopy. Deep Ortega MD Dec 13, 2018 20:56
[2018-12-14] VITALS (7 sets, daily range): BP systolic 104–138; BP diastolic 51–67
--- NOTE | 2018-12-14 04:17 | REP ---
Clinical: Nephrolithiasis. Technique: Retrograde pyelogram with intraoperative fluoroscopic imaging. Findings: Multiple intraoperative fluoroscopic images using portable C-arm technique demonstrates right-sided hydronephrosis and ureteral stone removal along with left ureteral stent placement. Total fluoroscopic time 5 minutes 49 seconds. Impression: Left-sided ureteral stent placement. Mild right hydronephrosis. Electronically Signed by Demarcus Green MD 12/14/2018 04:09 A
[2018-12-14 05:36] LABS: HEMATOCRIT 31.9 % (42.0-52.0); HEMOGLOBIN 10.4 g/dl (13.5-17.5); MEAN CORPUSCULAR HEMOGLOBIN 29.8 pg (27.0-33.0); MEAN CORPUSCULAR HGB CONC 32.6 g/dl (32.0-36.5); MEAN CORPUSCULAR VOLUME 91.4 fl (80.0-96.0); PLATELET COUNT, AUTOMATED 241 10^3/uL (150-450); RED BLOOD COUNT 3.49 10^6/uL (4.30-6.10)
[2018-12-14 05:55] LABS: BLOOD UREA NITROGEN 18 MG/DL (7-18); CALCIUM LEVEL 8.1 MG/DL (8.8-10.2); CARBON DIOXIDE LEVEL 23 MEQ/L (21-32); CHLORIDE LEVEL 104 MEQ/L (98-107); CREATININE FOR GFR 1.17 MG/DL (0.70-1.30); GLOMERULAR FILTRATION RATE > 60.0 (>49); GLUCOSE, FASTING 131 MG/DL (70-100); POTASSIUM SERUM 4.2 MEQ/L (3.5-5.1); SODIUM LEVEL 137 MEQ/L (136-145)
[2018-12-14] MEDS: SLF 3 ML SYR IV SCH ×3 (06:00→20:55)
[2018-12-14] MEDS: CIPROFLOXACIN 400 MG in APPROPRIATE DILUENT 1 EA IV SCH ×2 (06:11→19:01)
[2018-12-14] MEDS ORDERED: CIPROFLOXACIN 400 MG in APPROPRIATE DILUENT 1 EA IV SCH (08:00)
[2018-12-14] MEDS: ROSUVASTATIN 10 MG TAB (CRESTOR) PO SCH (09:45)
[2018-12-14] MEDS: PANTOPRAZOLE 40MG TAB (PROTONIX) PO SCH ×2 (09:46→20:54)
[2018-12-14] MEDS: METOPROLOL TART 25 MG TABLET PO SCH ×2 (09:46→20:54)
[2018-12-14] MEDS: SUCRALFATE 1 GM TAB PO SCH ×4 (09:46→20:54)
--- NOTE | 2018-12-14 11:08 | IPN ---
DATE: 12/14/2018 Adilson is seen in progressive care unit (PCU). He underwent cystoscopy, bilateral ureteral stenting, right ureteroscopy with balloon dilation of the ureter by Dr. Garcia, yesterday. He is having some left flank pain today. No fever. No chills. PHYSICAL EXAMINATION: Afebrile. Vital signs stable. Blood pressure 104/51. HEENT: Unremarkable. LUNGS: Clear. HEART: Regular rhythm. ABDOMEN: Soft, nontender. Mild left costovertebral angle tenderness (CVA). No peripheral edema. LABS: Electrolytes unremarkable. CBC unremarkable. We did a magnesium yesterday because he was having some nonsustained arrhythmia and that was also normal. IMPRESSION: 1. Upper gastrointestinal (GI) bleed with acute blood loss anemia secondary to multiple marginal ulcers. He is on Protonix and Carafate. His CBC is stable. 2. Bilateral renal stones with large left renal stone and right ureteral stone status post stenting yesterday. KUB ordered for today. Appreciated Dr. Garcia's assistance. 3. Coronary artery disease: No recurrence of chest pain. 4. Anemia secondary to acute blood loss from GI hemorrhage. Hemoglobin has remained stable. Will transfer him up to the floor today.
--- NOTE | 2018-12-14 11:25 | REP ---
Clinical: Renal stones. Technique: Two supine views of the abdomen and pelvis. Findings: Bilateral ureteral stents are identified. 17 cm lower pole nonobstructing left renal calculus identified along with suspected 9 mm right mid ureteral calculus. No evidence for bowel obstruction. Moderate diffuse fecal stasis and possible constipation noted. Skeletal structures demonstrate stable degenerative changes. Impression: 1. Continued evidence for left renal calculus and right ureteral calculus. Electronically Signed by Demarcus Green MD 12/14/2018 11:16 A
[2018-12-14] MEDS: TAMSULOSIN 0.4 MG CAP PO SCH (20:53)
--- NOTE | 2018-12-14 22:09 | IPN ---
DATE: 12/14/2018 Mr. Adilson Dill, ., was seen earlier this morning. He was sitting in a chair in no acute distress at rest. He was initially by Dr. Cole on 12/10/2018, and at that time he presented with symptomatic anemia due to gastrointestinal (GI) bleeding. He was transfused packed red blood cells. He also had chest pain on presentation, but his serum troponin remained negative. He did have underlying coronary artery disease (CAD), and residual nonobstructive coronary artery disease. He had a GI workup done, and also he was diagnosed (cut off) and yesterday he had bilateral ureteral stent placement by (cut off). Today, he is having residual bilateral flank pain. He denies any fevers or chills. He denies any palpitations. He has been ambulating. He denies any melena or hematemesis but has not been moving his bowels. PHYSICAL EXAMINATION: Patient is alert and oriented in no acute distress at rest. His vital signs reveal a blood pressure of 124/57 with a pulse of 63, respirations 18, and his maximum temperature is 97.5 degrees Fahrenheit with an oxygen saturation of 98% on room air. He has a negative fluid balance of 2.1 liters for 12/13/2018. Examination of head: Atraumatic. Neck is supple, and no jugular venous distention (JVD) appreciated. The lungs did not reveal any wheezing or crackles. The heart examination revealed normal S1 and S2 without gallops. The point of maximal impulse (PMI) is not displaced. There is no rub. I could not appreciate any murmurs. Abdomen is soft. There is minimal tenderness noted at the costophrenic angle bilaterally. Bowel sounds are active. Extremities reveal no pedal edema. Neurological examination is negative for focal deficit. LABORATORY DATA: CBC done today revealed a WBC of 7.0, hemoglobin 10.4, hematocrit 31.9, and platelets 241,000. BMP revealed a sodium of 137, potassium 4.2, chloride 104, CO2 of 23, BUN 18, creatinine 1.17, GFR more than 60, fasting glucose 131, and calcium 8.1. Serum magnesium on 12/13/2018 was 1.9. Mr. Dill seems to be stable from a cardiac point of view. He has not been having chest pain, and he denies any shortness of breath or palpitations. He has no pedal edema. His blood pressure is under control. He will continue current cardiac medications. Currently, he is not on antiplatelet therapy. He is being transferred to medical/surgical. His condition has improved. It was a pleasure to participate in the care of Mr. Adilson Dill, Sinus rhythm for his underlying cardiac condition. I will continue to monitor him along with you while in the hospital. Please do not hesitate to call if any questions.
[2018-12-15 00:07] LABS: PSA TOTAL 2.4 ng/mL (0.0-4.0)
[2018-12-15] MEDS: CIPROFLOXACIN 400 MG in APPROPRIATE DILUENT 1 EA IV SCH (05:21)
[2018-12-15] MEDS: SLF 3 ML SYR IV SCH ×2 (05:21→14:00)
[2018-12-15 06:00] VITALS: BP 117/60
[2018-12-15 06:41] LABS: HEMATOCRIT 30.5 % (42.0-52.0); HEMOGLOBIN 10.1 g/dl (13.5-17.5); MEAN CORPUSCULAR HEMOGLOBIN 30.1 pg (27.0-33.0); MEAN CORPUSCULAR HGB CONC 33.1 g/dl (32.0-36.5); PLATELET COUNT, AUTOMATED 253 10^3/uL (150-450); RED BLOOD COUNT 3.35 10^6/uL (4.30-6.10); WHITE BLOOD COUNT 7.5 10^3/uL (4.0-10.0)
[2018-12-15 06:54] LABS: CALCIUM LEVEL 7.9 MG/DL (8.8-10.2); CREATININE FOR GFR 1.29 MG/DL (0.70-1.30); GLOMERULAR FILTRATION RATE 59.1 (>49); POTASSIUM SERUM 3.7 MEQ/L (3.5-5.1)
[2018-12-15] MEDS ORDERED: LACTOBACILLUS ACIDOPHILUS CAP (BACID) PO SCH (09:00)
[2018-12-15 10:40] VITALS: BP 117/60
[2018-12-15] MEDS: METOPROLOL TART 25 MG TABLET PO SCH (10:40)
[2018-12-15] MEDS: PANTOPRAZOLE 40MG TAB (PROTONIX) PO SCH (10:40)
[2018-12-15] MEDS: SUCRALFATE 1 GM TAB PO SCH ×2 (10:40→12:42)
[2018-12-15] MEDS: ROSUVASTATIN 10 MG TAB (CRESTOR) PO SCH (10:41)
[2018-12-15] MEDS: MORPHINE 4 MG/ML 1ML VIAL/SYRINGE (J2270) IV PRN (12:44)
[2018-12-15] MEDS ORDERED: ACETAMINOPHEN 500 MG TAB PO PRN ×2 (13:00)
[2018-12-15] MEDS ORDERED: MIRALAX *UNIT DOSE* 17GM PACKET PO PRN (13:00)
--- NOTE | 2018-12-15 13:33 | REP ---
Clinical: Nephroureterolithiasis. Technique: Supine view of the abdomen and pelvis. Comparison: 12/14/2018. Findings: Proximal right ureteral calculus is unchanged in position. Large nonobstructing left renal calculus remains stable. Bilateral ureteral stents identified. Bowel gas pattern is nonspecific. Skeletal structures are intact. Impression: No change in appearance or position of the ureteral or renal calculi. Electronically Signed by Demarcus Green MD 12/15/2018 01:25 P
[2018-12-15 14:00] VITALS: BP 137/78
[2018-12-15] MEDS ORDERED: SUCR1TA PO (14:06)
[2018-12-15] MEDS ORDERED: PANT40TA3 PO (14:06)
--- NOTE | 2018-12-15 14:09 | IPNPDOC ---
Date Seen The patient was seen on 12/15/18. Progress Note SUBJECTIVE: Patient is a 68yo male with bilateral stent. the right ureter has stone stuck in the ureter and the left has large non passable stone. kub shows constipation OBJECTIVE PHYSICAL EXAMINATION: VITAL SIGNS: Please see below. GENERAL: alert oriented HEENT: no exudate no erythema CARDIOVASCULAR: good cap refill no cyanosis RESPIRATORY: good excursion no wheeze no stridor ABDOMINAL: soft nontender non distended EXTREMITIES: no cyanosis clubbing or edema NEUROLOGICAL: alert oriented x3 PSYCHOLOGICAL: alert oriented x3 LABORATORY DATA, IMAGING STUDIES, MICROBIOLOGY: Please see below. ASSESSMENT AND PLAN: This is a 68yo white male with h/o of bilateral stones right ureteral stones and left lower pole stone. Please avoid blood thinners Discharge on antibiotic coverage; continue flomax; continue mag oxide/acidophllus/miralax Discharge with stents and plan for ESWL on the left and ureteroscopy v. eswl on the right. Call sunday for appointment that day or soonish for management of stones. DISPOSITION: home per Dr. Madera VS[facility]O Vital Signs Date Time Temp Pulse Resp B/P (MAP) Pulse Ox O2 Delivery O2 Flow Rate FiO2 12/15/18 12:44 18 12/15/18 10:40 68 117/60 12/15/18 06:00 98.5 96 12/13/18 21:09 Room Air 12/13/18 20:32 2 I&O- Last 24 Hours up to 6 AM 12/15/18 06:00 Intake Total 1700 ml Output Total 1190 ml Balance 510 ml Laboratory Data 24H LABS Laboratory Tests 2 12/15/18 06:22: Nucleated Red Blood Cells % (auto) 0.0, Anion Gap 8, Glomerular Filtration Rate 59.1, Blood Urea Nitrogen 16, Creatinine 1.29, Sodium Level 141, Potassium Level 3.7, Chloride Level 108H, Carbon Dioxide Level 25, Calcium Level 7.9L CBC/BMP Laboratory Tests 12/15/18 06:22 Red Blood Count 3.35 L, Mean Corpuscular Volume 91.0, Mean Corpuscular Hemoglobin 30.1, Mean Corpuscular Hemoglobin Concent 33.1, Red Cell Distribution Width 16.0 H, Calcium Level 7.9 L Deep Ortega MD Dec 15, 2018 14:09
--- NOTE | 2018-12-15 14:27 | IPN ---
DATE OF SERVICE: 12/15/2018 Mr. Adilson Dill Sr. was seen. He was sitting up in his bed in no acute distress at rest. He was transferred to medical-surgical yesterday from progressive care unit (PCU). He denies any chest pain, shortness of breath, palpitations. Yesterday, he was having bilateral costophrenic angle pain, but today it is mainly on the left side. He denies any fever or chills. He was initially admitted for symptomatic anemia, and other time he was also having chest pain, and cardiology was involved. He does have a history of coronary artery disease (CAD). His serum troponin remained negative. About 2 days ago, he had bilateral ureteral stents. On physical examination, the patient is alert and oriented, in no acute distress. His vital signs this morning reveal a blood pressure of 117/60 with a pulse of 68, respiration 18, and his maximum temperature was 99.2 degrees Fahrenheit yesterday in the evening. His oxygen saturation varies between 96% and 99% on room air. He had a positive fluid balance of 1.3 liters for 12/14/2018. Examination of head: Atraumatic. Neck is supple. No jugular venous distention (JVD) or carotid bruits appreciated. The lungs did not reveal any wheezing or crackles. The heart examination revealed normal S1 and S2 without gallops. The point of maximal impulse (PMI) is not displaced. There is no rub. Abdomen is soft with minimal tenderness noted at the level of the suprapubic area. There was also minimal to mild tenderness at the level of the left costophrenic angle. Extremities reveal no pedal edema. Neurological examination is negative for focal deficit. LABORATORIES: Basic metabolic profile (BMP) done today revealed a sodium of 141, potassium 3.7, chloride 108, CO2 25, BUN 16, creatinine 1.29, GFR 59.1, fasting glucose 109, and calcium 7.9. Complete blood count (CBC) revealed a WBC of 7.5, hemoglobin 10.1, hematocrit 30.5, and platelets 253,000. IMPRESSION: Mr. Adilson Dill Sr. seems to be stable from a cardiac point of view. He has been free of chest pain, shortness of breath. Once he is stable enough and there is no manifestation of bleeding, we can restart on the aspirin. He also was on long-acting nitrate, now on hold, and it can be monitored because he has been free of chest pain. Will continue to monitor him as needed while in the hospital. Upon discharge, he will make an appointment for followup. Please do not hesitate to call if any questions.
--- NOTE | 2018-12-16 03:54 | DSES ---
DATE OF ADMISSION: 12/09/2018 DATE OF DISCHARGE: 12/15/2018 CONSULTANTS: Dr. Garcia, urology. Dr. Hernandez, cardiology. Dr. Agustin, gastroenterology. PRINCIPAL DIAGNOSIS: Upper gastrointestinal (GI) bleed with acute blood loss anemia. SECONDARY DIAGNOSES: 1. Multiple marginal ulcers. 2. Bilateral renal stones with right ureteral obstruction. 3. Coronary artery disease. 4. Anemia from gastrointestinal (GI) blood loss. 5. Hyperlipidemia. 6. Hypertension. 7. Acute coronary syndrome precipitated by severe anemia principal diagnosis esophagogastroduodenoscopy (EGD), Dr. Agustin 12/10/2018. HISTORY: Adilson Alarcon was admitted with severe anemia. Details as per his history and physical from admission. HOSPITAL COURSE: The patient was admitted to a progressive care unit (PCU) bed. Soon after admission he developed acute chest pain similar to his angina radiating to his neck and arm. Electrocardiogram (EKG) showed no acute ischemia. He was transfused with further resolution of his chest pain. He underwent EGD and it showed marginal ulcers and he was treated with proton pump inhibitor (PPI) and Carafate. He had no recurrence of anginal symptoms after being transfused. His hemoglobin remained stable following transfusion of a total of 6 units packed red blood cells. He had been in the emergency room a few days prior to admission and found by CT to have a right ureteral obstruction from stone as well as a large left stone. He was supposed to see urology but got admitted instead. Dr. Garcia from urology saw him. During his hospitalization he performed cysto with bilateral stents, right ureteroscopy after balloon dilatation of the ureter to place wire due to obstructing stone proximally on 12/13/2018. On the day of discharge he is resting comfortably. He feels ready to go home. His abdominal pain has basically resolved with treating the stones. He has had no evidence of recurrence of the gastrointestinal (GI) bleed. Laboratories today showed a white count of 7.5, hemoglobin 10.1, platelets 253, sodium 141, potassium 4.7, BUN 16, creatinine 1.2, glucose 100. Prostate-specific antigen (PSA) was normal at 2.4. DISPOSITION: The patient is discharged home in improved and stable condition. He is to follow up with primary care provider who is the [facility] in a week, followup with Dr. Garcia at urology office per her office. MEDICATIONS: - Cipro 500 mg twice a day for 7 days - Protonix 40 mg twice a day - Carafate 1 gram before a meal (a.c.) and at bedtime - tamsulosin 0.4 mg daily - Tylenol - he will continue Tylenol - [place] - he will continue [place] 5/325 every 6 hours as needed - aspirin 81 mg daily - cyclobenzaprine 10 mg at bedtime - Imdur 30 mg daily - metoprolol 25 mg twice a day - multivitamin - Nitrostat as needed - Zofran 4 mg every 6 hours as needed - Crestor 40 mg daily The importance of maintaining adequate hydration to prevent recurrent stone formation discussed. Activity as tolerated.
== END 2018-12-15 16:55 | disposition home or self-care (01) | DRG 907 ==
LOC: EDBD 08:56 → M ED 08:56 → M ED INP 13:41 → M PCU 17:50 → M MS5PR 12-14 14:22
PROVIDERS: ADMIT Internal Medicine; ATTEND Family Medicine
PROC: 30233N1 Transfusion of Nonautologous Red Blood Cells into Peripheral Vein, Percutaneous Approach (ICD-10-PCS; 2018-12-09)
PROC: 0DJ08ZZ Inspection of Upper Intestinal Tract, Via Natural or Artificial Opening Endoscopic (ICD-10-PCS; 2018-12-10)
PROC: 0T768ZZ Dilation of Right Ureter, Via Natural or Artificial Opening Endoscopic (ICD-10-PCS; principal; 2018-12-13 16:15)
DX: K91.840 Postprocedural hemorrhage of a digestive system organ or structure following a digestive system procedure (principal); K28.0 Acute gastrojejunal ulcer with hemorrhage; D62 Acute posthemorrhagic anemia; N13.30 Unspecified hydronephrosis; I24.9 Acute ischemic heart disease, unspecified; N20.1 Calculus of ureter; I25.10 Atherosclerotic heart disease of native coronary artery without angina pectoris; I10 Essential (primary) hypertension; Z79.899 Other long term (current) drug therapy; Z79.82 Long term (current) use of aspirin; I25.2 Old myocardial infarction; E78.5 Hyperlipidemia, unspecified; F17.200 Nicotine dependence, unspecified, uncomplicated; Z88.0 Allergy status to penicillin; I95.9 Hypotension, unspecified; N40.0 Benign prostatic hyperplasia without lower urinary tract symptoms

== ENCOUNTER → 2018-12-20 | Outpatient (CLI) | payer MEDICARE ==
[~2018-12-20] MED LIST changes: +CIPR500T3 PO; +CRES40TA PO; +NORC1TAB4 PO; +ONDA4TAB5 PO; +PREP1CRE PR; +SUCR1TA PO; +TYLE500T78 PO; +VITA5ELUD PO
--- NOTE | 2018-12-20 12:39 | REP ---
Chest one-view HISTORY: Left kidney stone Comparison: 08/19/2017 The lungs are clear. The heart is normal in size. The pulmonary vasculature is normal in appearance. Impression: No acute disease. Electronically Signed by Juanjo Jorgensen MD 12/20/2018 12:30 P
[2018-12-20 13:23] LABS: IONIZED CALCIUM 4.6 MG/DL (4.5-5.3)
--- NOTE | 2018-12-20 13:35 | REP ---
KUB ONE VIEW: HISTORY: Kidney stone. COMPARISON: 12/15/2018 Air is present in small and large intestine. There are no air fluid levels or dilated loops of intestine. There is no pneumoperitoneum. Bilateral ureteral stents are present. A calcification is present overlying the proximal right ureteral stent in the region of the proximal right ureter. A calcification is present overlying the left kidney consistent with nephrolithiasis. IMPRESSION: 1. There is a calcification overlying the proximal right ureteral stent in the region of the proximal right ureter unchanged compared to the previous study. 2. Left nephrolithiasis. Electronically Signed by Juanjo Jorgensen MD 12/20/2018 01:41 P
[2018-12-20 14:06] LABS: ALBUMIN 2.8 GM/DL (3.2-5.2); ALT/SGPT 12 U/L (12-78); BASO # 0.1 10^3/uL (0.0-0.2); BILIRUBIN,TOTAL 0.4 MG/DL (0.2-1.0); BLOOD UREA NITROGEN 19 MG/DL (7-18); CALCIUM LEVEL 8.2 MG/DL (8.8-10.2); CARBON DIOXIDE LEVEL 25 MEQ/L (21-32); CHLORIDE LEVEL 111 MEQ/L (98-107); CREATININE FOR GFR 1.13 MG/DL (0.70-1.30); EOS # 0.2 10^3/uL (0.0-0.50); EOS % 4.2 % (0.0-3.0); GLOMERULAR FILTRATION RATE > 60.0 (>49); GLUCOSE, FASTING 84 MG/DL (70-100); HEMATOCRIT 31.4 % (42.0-52.0); HEMOGLOBIN 9.7 g/dl (13.5-17.5); LYMPH # 1.7 10^3/uL (1.5-4.5); LYMPH % 34.4 % (24.0-44.0); MEAN CORPUSCULAR HGB CONC 30.9 g/dl (32.0-36.5); MEAN CORPUSCULAR VOLUME 93.7 fl (80.0-96.0); MONO # 0.5 10^3/uL (0.0-0.8); MONO % 10.7 % (0.0-5.0); NEUTROPHILS # 2.5 10^3/uL (1.8-7.7); NEUTROPHILS % 49.5 % (36.0-66.0); PLATELET COUNT, AUTOMATED 238 10^3/uL (150-450); POTASSIUM SERUM 3.9 MEQ/L (3.5-5.1); RED BLOOD COUNT 3.35 10^6/uL (4.30-6.10); SODIUM LEVEL 142 MEQ/L (136-145); TOTAL PROTEIN 5.7 GM/DL (6.4-8.2); URIC ACID 5.4 MG/DL (3.5-7.2)
[2018-12-20 14:20] LABS: COLLAGEN EPINEPHRINE 102 SECONDS (74-162)
[2018-12-20 15:29] LABS: PTH INTACT 71.9 PG/ML (18.5-88.0)
[2018-12-21 15:39] LABS: PSA TOTAL 3.3 ng/mL (0.0-4.0)
== END ==
LOC: M SMT 11:21
PROVIDERS: ATTEND Urology Pediatric Urology
DX: N20.0 Calculus of kidney (principal); N20.1 Calculus of ureter
CPT/HCPCS: 36415; 71045; 74018; 80053; 82330; 83605; 83735; 83970; 84154; 84550; 85025; 85576; G0463

== ENCOUNTER → 2018-12-23 | Outpatient (CLI) | payer MEDICARE, MEDICAID, OTHER ==
[~2018-12-23] MED LIST changes: -TYLE500T78 PO
--- NOTE | 2018-12-23 15:40 | ECGEPIP ---
Stationary ECG Study [facility] Test Date: 2018-12-23 Pat Name: CAMERON GARBER Department: Room: - Gender: M [employer]ician: : [id number] Requested By: Deep Marquez Order Number: [id number] Reading MD: Amita Jean Measurements Intervals [place] Rate: 65 P: 0 [place]: 172 QRS: -6 QRSD: 92 T: -27 QT: 382 QTc: 400 Interpretive Statements SINUS RHYTHM INFERIOR MYOCARDIAL INFARCTION, OF INDETERMINATE AGE POSSIBLE U WAVES VS ARTIFACT SIMILAR TO 12/10/18 Electronically Signed On 12-23-2018 15:40:05 EST by Amita Jean
== END ==
LOC: M EKG 12:57
PROVIDERS: ATTEND Urology Pediatric Urology
DX: N20.0 Calculus of kidney (principal); I21.3 ST elevation (STEMI) myocardial infarction of unspecified site

== ENCOUNTER 2019-01-09 06:02 | Day surgery (SDC) | payer MEDICARE, OTHER ==
[~2019-01-09] VITALS: Ht 180.3 cm; Wt 97.3 kg
[~2019-01-09 06:02] MED LIST changes: +LIDOCAINE 1% MDV 20ML VIAL SQ PRN; +LR 1,000 ML IV ONE; +PIPERACILLIN/TAZOBACTAM SOD 3.375 GM in D5W MINI-BAG PLUS 50 ML IV ONE
[2019-01-09] MEDS ORDERED: ZOSYN 3.375 GM VIAL (J2543) As Ordered ONE (06:34)
[2019-01-09] MEDS ORDERED: fentaNYL 100 MCG/2 ML INJECTION (J3010) As Ordered ONE (07:10)
[2019-01-09] MEDS ORDERED: LIDOCAINE 2% INJ 100 MG/5 ML SDV (FOR ANES.) As Ordered ONE (07:10)
[2019-01-09] MEDS ORDERED: MIDAZOLAM INJ 2 MG/2 ML VIAL (J2250) As Ordered ONE (07:10)
[2019-01-09] MEDS ORDERED: PROPOFOL 200 MG/20 ML VIAL As Ordered ONE ×2 (07:10→08:02)
[2019-01-09] MEDS ORDERED: ONDANSETRON 4MG/2ML VIAL (J2405) As Ordered ONE (07:46)
[2019-01-09] MEDS ORDERED: dexameTHASONE 4 MG/ML 1ML VIAL (J1100) As Ordered ONE (07:46)
[2019-01-09] MEDS ORDERED: ePHEDrine SULFATE 25 MG/5 ML(5MG/ML) SYRINGE As Ordered ONE (08:17)
[2019-01-09] MEDS ORDERED: PHENYLephrine HCL 500 MCG/5 ML (100MCG/ML) SYRINGE (J2370) As Ordered ONE (08:18)
[2019-01-09] MEDS ORDERED: TYLE500T78 PO (09:05)
[2019-01-09 09:55] VITALS: BP 136/63
--- NOTE | 2019-01-09 11:42 | ROOPDOC ---
[facility] Report Of Operation Report of Operation DATE OF PROCEDURE: 01/09/19 PREPROCEDURE DIAGNOSIS: left renal kidney stones large; right ureteral stone. POSTPROCEDURE DIAGNOSIS: same ESWL start 740am and end 840am PROCEDURE: left renal extracorporeal shock wave lithotripsy; right ureteral extracorporeal shockwave lithotripsy. SURGEON: Deep Ortega MD [facility] CERTIFIED HYPERBARIC TECHNOLOGIST: None. ANESTHESIA: Monitored anesthesia care (MAC)-Dr. Blanco and Tashia Greer (REAL). OPERATIVE INDICATIONS: This is a 68-year-old male who on recent CAT scan was found to have obstructing right ureteral stone and large non obstructing left lower pole renal stone. She was brought to the operating room today for above-listed procedure. Findings: 1.4x1.2 cm stone in left lower pole and 8x8mm right ureteral stone. Patient grade 3; pain relief IV meds per anesthesia. DESCRIPTION OF PROCEDURE: The patient was brought to the operating room and monitored anesthesia care (MAC) was administered. Prophylactic antibiotic (Zosyn 3.375g IV) was administered OCTOR. After informed consent she was brought to the operative suite where the routine time out was completed with all provider stakeholders agreed on location, equipment, procedure and any potential dangers for the patient that could be avoided. Fluoroscopy and simultaneous ultrasound using the Piezolith 3000 was then utilized to monitor stone position and executed stone fragmentation. Shock waves were then delivered to the left-side kidney stones, ungated. First 250 shocks to the left lower pole stone was at levels slowly sheldon to 20 from 1 and then the remaining 2250 shocks where done at 20. TThere were no arrhythmias. The stones did appear to fragment well for the larger stone (left lower pole stone) and to the smaller stone fragments. After 2500 shocks to the left lower pole, the patient was then repositioned for the right ureteral extracorporeal shockwave lithotripsy and a total of 3000 shocks to the right ureter stone were delivered. The patient was then awakened from anesthesia and transported to the recovery room in stable condition. Estimated blood loss: 0 mL. Complications: None. Specimens: None. PLAN: Followup with [facility] for assessment of stent removal in 2 week s. Pt will also need kub and ct in a few weeks prior removing stent to assess for residual stone burden and deciding on timing of stent removal v. further intervention including not exclusive of ureteroscopy laser lithotripsy. The patient was offered a small amount of narcotics given the ESWL described above. He is cautioned to use sparingly. Continue antibiotic coverage for a few days. Encouraged to hydrate well (3l/day); void [id number]; expect blood and clots in her urine; Avoid ibuprofen, nsaids, aspirin and other blood thinners for 7-10 days. Encouraged to use stone prevention diet, hydration and flomax as prescribed. Deep Ortega MD Jan 09, 2019 09:46
== END 2019-01-09 09:56 | disposition home or self-care (01) ==
LOC: M SDC 06:02
PROVIDERS: ATTEND Urology Pediatric Urology
DX: N20.0 Calculus of kidney (principal); N20.1 Calculus of ureter; I25.10 Atherosclerotic heart disease of native coronary artery without angina pectoris; I10 Essential (primary) hypertension; I25.2 Old myocardial infarction; Z98.61 Coronary angioplasty status; E78.5 Hyperlipidemia, unspecified; K21.9 Gastro-esophageal reflux disease without esophagitis; F17.210 Nicotine dependence, cigarettes, uncomplicated; Z79.82 Long term (current) use of aspirin; Z79.899 Other long term (current) drug therapy; Z88.0 Allergy status to penicillin
CPT/HCPCS: 50590; J1100; J2250; J2370; J2405; J2543; J3010